=== PATIENT | female | born 1945 | race Caucasian/White ===

== ENCOUNTER 2023-01-20 07:39 | Day surgery (SDC) | payer MEDICARE, SELFPAY ==
[2023-01-20 07:56] VITALS: BP 131/84; PULSE 92; RESP 14; TEMP 36.2; O2SAT 97; BMI 25.9
[2023-01-20] MEDS: LACTATED RINGER'S SOLUTION 1,000 ML 50 ML IV (08:05)
--- NOTE | 2023-01-20 10:10 | PM.GSPRC ---
Date of procedure: 01/20/23 Indications for Procedure: history of colon polyps Pre-op diagnosis: history of colon polyps Post-op diagnosis: other (normal colon) Procedure: colonoscopy Findings: Normal Anesthesia: MAC Surgeon: Yo Dunham Procedure Summary: PROCEDURE: The patient was taken to the Endoscopy Suite, placed in the left lateral recumbent position, given IV sedation as above. A rectal digital exam was performed. The sphincter tone was found to be normal. No rectal masses were appreciated. The Olympus video colonoscope was advanced under direct visualization to the rectum, sigmoid colon, descending colon, transverse colon and ascending colon to the ileocecal valve. The underside of the valve was seen. appendiceal lumen was visualized. The scope was slowly withdrawn with air being desufflated as it was withdrawn. No gross tumors, polyps or diverticula were seen. The patient tolerated the procedure well and went to the Recovery Area in satisfactory condition. I recommend the patient use a bulk laxative on a regular basis and follow up as needed. she will not need repeat scope due to ageless problems. Estimated blood loss (mL): 0 Specimens: none Complications: No Pathology: none sent Condition: stable Disposition: PACU
[2023-01-20 10:12] VITALS: BP 124/66; PULSE 61; RESP 16; O2SAT 100
[2023-01-20 10:37] VITALS: BP 120/84; PULSE 60; RESP 16; O2SAT 97
== END 2023-01-20 10:55 | disposition home or self-care (01) ==
PROVIDERS: PCP Family Medicine; Visit Provider Surgery
PROC: (CPT 45378; principal; 2023-01-20 09:50)
DX: Z86.010 Personal history of colon polyps (principal); Z80.0 Family history of malignant neoplasm of digestive organs; F41.9 Anxiety disorder, unspecified; Z79.899 Other long term (current) drug therapy; Z90.710 Acquired absence of both cervix and uterus
CPT/HCPCS: 45378; J2704

== ENCOUNTER 2023-01-21 18:50 | Outpatient (OUT) | payer MEDICARE, SELFPAY ==
[2023-01-14 16:52] LABS: SARS-CoV-2 Ag NEGATIVE (NEGATIVE)
[2023-01-15 16:11] LABS: SARS-CoV-2 NAA NOT DETECTED (NOT DETECTE)
== END 2023-01-21 18:51 | disposition home or self-care (01) ==
LOC: PST 18:50
PROVIDERS: Nurse Practitioner; PCP Family Medicine; Visit Provider Surgery
DX: Z01.812 Encounter for preprocedural laboratory examination (principal); Z86.010 Personal history of colon polyps; Z20.822 Contact with and (suspected) exposure to COVID-19
CPT/HCPCS: 87635; 87811

== ENCOUNTER 2023-03-10 13:42 | Outpatient (OUT) | payer MEDICARE, SELFPAY ==
--- NOTE | 2023-03-10 14:50 | CA_ITS ---
Patient: KOLTON NAPIER Exam Date: 03/10/2023 : 1945 Gender:F Ordering : DR CARRIE DE LA TORRE . Admission #: [id number] Family : DR DANI DOMINGUEZ M.D. Order #: [id number] CLICK HERE TO VIEW EXAM ECHOCARDIOGRAM REPORT PROCEDURE: CA ECHO DOPPLER COMPLETE INDICATIONS: Aortic stenosis, hypertension COMPARISON: None. DESCRIPTION: COMPLETE ECHOCARDIOGRAM Real-time transthoracic echocardiography with 2D, M-mode, spectral and color flow Doppler performed. QUALITY: Technical quality was good. LEFT VENTRICLE: Normal chamber size. Proximal septal hypertrophy (sigmoid septum). Normal systolic function. LV EF: Normal left ventricular ejection fraction, (>55%). DIASTOLIC: Normal diastolic function. ATRIAL SEPTUM: Hypermobile interatrial septum. Color Doppler flow suggests possible PFO. LEFT ATRIUM: Moderate dilatation. RIGHT ATRIUM: Mild dilatation. RIGHT VENTRICLE: Normal chamber size. Normal right ventricular systolic function. TRICUSPID VALVE: Normal mobility and thickness. No stenosis with trivial regurgitation. No evidence of pulmonary hypertension. RVSP 30 mmHg MITRAL VALVE: Normal mobility and thickness. No evidence of mitral valve stenosis. There is no mitral annular calcification. Trivial mitral regurgitation. The anterior leaflet is calcified at the tip. AORTIC VALVE: Normal trileaflet appearance. Mildly calcified aortic valve. Mildly diminished mobility. Doppler velocity suggest mild to moderate aortic valve stenosis. DVI 0.4, ADIN 1.4 cm2. Mean gradient 12 mmHg. No aortic regurgitation. AORTIC ROOT: Normal diameter and appearance. The ascending aorta is normal in size (3.3 cm). The aortic arch is mildly dilated (3.4 cm) PULMONIC VALVE: Normal thickness and mobility. No stenosis. No regurgitation. PERICARDIUM: No evidence of pericardial effusion. IVC: Collapses with inspirations. IVC is normal in size. PLEURA: CONCLUSION: 1. Normal left ventricular systolic function. LVEF is 55-60%. 2. Normal right ventricular size and systolic function. 3. Normal diastolic function. 4. Mild to moderate biatrial dilatation. 5. Mild to moderate aortic valve stenosis. 6. Normal right sided pressures. Adult Echocardiography Procedure Report Left Ventricle LVEDD (3.7 - 5.6 cm): 4.21 cm LVESD (2.2 - 4.0 cm): 2.69 cm LVIVS thickness (0.6 - 1.2 cm): 1.34 cm LVPW thickness (0.5 - 1.0 cm): 0.83 cm e': 0.11 m/s E - e': 5.63 LVOT Max Gradient: 3.19 mm[Hg], 3.19 mm[Hg] LVOT Area (cm2): 0.89 m/s Peak Velocity (LVOT): 0.89 m/s, 0.89 m/s Mean Velocity (LVOT): 0.63 m/s LVOT Diameter 2.02 cm Left Atrium LA Volume Index (2D A2C): 33.42 ml/m2 Left Atrium Systolic Dimension: 4.40 cm Mitral Valve MV E to A Ratio: 0.72 Mitral Valve A-Wave Peak Velocity: 0.89 m/s Mitral Valve E-Wave Peak Velocity: 0.64 m/s Right Ventricle Aorta AO Root Diam: 3.07 cm Ascending Ao Diam: 3.28 cm Aortic Valve AoV Area (Peak Haile): 1.38 cm2, 1.40 cm2, 1.49 cm2 AoV Area (VTI): 1.37 cm2, 1.42 cm2, 1.46 cm2 Peak Velocity(Antegrade Flow): 2.04 m/s, 1.92 m/s, 2.23 m/s Peak Gradient(Antegrade Flow): 16.59 mm[Hg], 14.68 mm[Hg], 19.94 mm[Hg] Mean Velocity(Antegrade Flow): 1.54 m/s, 1.36 m/s, 1.60 m/s Mean Gradient(Antegrade Flow): 10.42 mm[Hg], 8.52 mm[Hg], 11.83 mm[Hg] Velocity Time Integral: 46.49 cm, 44.59 cm, 52.51 cm Tricuspid Valve Peak Velocity (Regurgitant Flow): 2.61 m/s Pulmonic Valve Peak Velocity: 1.04 m/s Peak Gradient: 4.51 mm[Hg], 4.11 mm[Hg] Right Atrium Right Atrium Systolic Pressure: 42.59 ml, 42.59 ml Dictated by: Bulmaro Mojica M.D. on 03/11/2023 at 09:54 Approved by: Bulmaro Mojica M.D. on 03/11/2023 at 10:07
== END 2023-03-10 13:43 | disposition home or self-care (01) ==
LOC: CARD 13:42
PROVIDERS: PCP Family Medicine; Visit Provider Family Medicine
DX: I35.0 Nonrheumatic aortic (valve) stenosis (principal)
CPT/HCPCS: 93306

== ENCOUNTER 2023-08-23 15:05 | Outpatient (OUT) | payer MEDICARE, SELFPAY ==
[2023-08-23 15:26] LABS: Basophils Absolute Auto 0.1 10^3/uL (0.0-0.1); Basophils Percent Auto 0.7 % (0.2-2.0); Eosinophils Absolute Auto 0.2 10^3/uL (0.0-0.7); Eosinophils Percent Auto 2.5 % (0.9-7.0); Hematocrit 40.1 % (36.0-48.0); Hemoglobin 13.3 g/dL (12.0-16.0); Immature Granulocytes Abs Auto 0.02 10^3/uL (0.00-0.03); Immature Granulocytes Pct Auto 0.2 % (0.0-0.5); Lymphocytes Absolute Auto 2.9 10^3/uL (1.2-3.8); Lymphocytes Percent Auto 36.1 % (20.5-60.0); Mean Corpuscular HGB Conc 33.2 g/dL (29.9-35.2); Mean Corpuscular Volume 96.4 fL (81.0-99.0); Mean Platelet Volume 9.7 fL (9.5-13.5); Monocytes Absolute Auto 0.6 10^3/uL (0.3-0.8); Monocytes Percent Auto 7.6 % (1.7-12.0); Neutrophils Absolute Auto 4.2 10^3/uL (1.4-6.5); Neutrophils Percent Auto 52.9 % (43.0-75.0); Platelet Count 238 10^3/uL (150-450); Red Blood Count 4.16 10^6/uL (4.20-5.40); Red Cell Distribution Width 11.8 % (11.0-15.0)
[2023-08-23 15:39] LABS: Alanine Aminotransferase 16 U/L (14-59); Albumin Globulin Ratio 1.1; Alkaline Phosphatase 107 U/L (46-116); Anion Gap 11.9; Aspartate Amino Transferase 19 U/L (15-37); BUN Creatinine Ratio 20.7; Bilirubin Direct 0.1 mg/dL (0.0-0.2); Bilirubin Total 0.5 mg/dL (0.2-1.0); Calcium 9.7 mg/dL (8.5-10.1); Chloride 105 mmol/L (98-107); Chol HDL Ratio 2.7; Cholesterol 161 mg/dL (<=200); Estimated GFR (African America >60 (>=60); Estimated GFR (Non-African Ame >60 (>=60); Globulin 3.8 g/dL; Glucose 90 mg/dL (74-106); HDL Cholesterol 60 mg/dL (40-60); LDL Cholesterol Calculated 78.2 mg/dL; Potassium 3.9 mmol/L (3.5-5.1); Sodium 142 mmol/L (136-145); Total Protein 7.8 g/dL (6.4-8.2); Triglycerides 114 mg/dL (<=150); VLDL CHOLESTEROL 22.8 mg/dL
== END 2023-08-23 15:06 | disposition home or self-care (01) ==
LOC: LAB 15:07
PROVIDERS: PCP Family Medicine; Visit Provider Family Medicine
DX: Z79.899 Other long term (current) drug therapy (principal); I10 Essential (primary) hypertension; E78.5 Hyperlipidemia, unspecified
CPT/HCPCS: 36415; 80048; 80061; 80076; 85025

== ENCOUNTER 2023-09-27 12:42 | Outpatient (OUT) | payer MEDICARE, SELFPAY ==
--- NOTE | 2023-09-27 12:45 | MM_ITS ---
Patient Name: KOLTON NAPIER MR#: [id number] : 1945 Exam Date: 09/27/2023 Ordering Doctor: DR Shaheed Crow . RADIOLOGY REPORT PROCEDURE: MM TOMOSYNTHESIS SCREENING BI COMPARISON: MG MAMM SCREEN 3D SHARLENE CAD, 09/23/2021. MG MAMM SCREEN 3D SHARLENE CAD, 09/24/2022. INDICATIONS: screening Calculator Name NCI Breast Cancer Risk Assessment Tool 5 Year Breast Cancer Risk 8.10% Lifetime Breast Cancer Risk 14.10% Personal Breast Cancer No Personal Ovarian Cancer No Treatments None Family Cancers Mother with breast cancer at age 80; Aunt-maternal with breast cancer at age 80; Sister with breast cancer at age 65; Mother with stomach cancer at age 80. LOCATION: [facility] BREAST COMPOSITION: Scattered areas fibroglandular density. FINDINGS: DIAGNOSTIC CATEGORY 1--NEGATIVE. NO CHANGE FROM COMPARISON ASSESSMENT. Scattered benign-appearing calcifications are present. Scattered benign-appearing lymph nodes are present. RIGHT BREAST: No significant suspicious finding. LEFT BREAST: No significant suspicious finding. RECOMMENDATIONS: ROUTINE MAMMOGRAM AND CLINICAL EVALUATION IN 12 MONTHS. PLEASE NOTE: A NORMAL MAMMOGRAM DOES NOT EXCLUDE THE POSSIBILITY OF BREAST CANCER. A CLINICALLY SUSPICIOUS PALPABLE LUMP SHOULD BE BIOPSIED. Dictated by: Kt Stacy MD on 09/27/2023 at 15:28 Approved by: Kt Stacy MD on 09/27/2023 at 15:29
--- OUTSIDE RECORDS SUMMARY | 2023-09-27 12:48 | XMS_ITS | CCD ---
Author Organization [facility] Care Team Providers Care Chemical Checker Name Role Phone ADORE, DR MARIALUISA Anguiano Consulting Unavailable NADERER, DR SHAHEED Thomas Primary Care Unavailable WEST, DR MARIALUISA Anguiano Attending Unavailable WEST, DR MARIALUISA Anguiano Admitting Unavailable WEST, DR MARIALUISA Anguiano Consulting Unavailable NADERER, DR SHAHEED Thomas Primary Care Unavailable WEST, DR MARIALUISA Anguiano Attending Unavailable WEST, DR MARIALUISA Anguiano Admitting Unavailable WEST, DR MARIALUISA Anguiano Consulting Unavailable NADERER, DR SHAHEED Thomas Primary Care Unavailable WEST, DR MARIALUISA Anguiano Attending Unavailable WEST, DR MARIALUISA Anguiano Admitting Unavailable ZIEBER, DR NOAH Avery Consulting Unavailable WEST, DR MARIALUISA Anguiano Consulting Unavailable NADERER, DR SHAHEED Thomas Primary Care Unavailable WEST, DR MARIALUISA Anguiano Attending Unavailable WEST, DR MARIALUISA Anguiano Admitting Unavailable ZIEBER, DR NOAH Avery Consulting Unavailable WEST, DR MARIALUISA Anguiano Consulting Unavailable NADERER, DR SHAHEED Thomas Primary Care Unavailable WEST, DR MARIALUISA Anguiano Attending Unavailable WEST, DR MARIALUISA Anguiano Admitting Unavailable ZIEBER, DR NOAH Avery Consulting Unavailable WEST, DR MARIALUISA Anguiano Consulting Unavailable NADERER, DR SHAHEED Thomas Primary Care Unavailable WEST, DR MARIALUISA Anguiano Attending Unavailable WEST, DR MARIALUISA Anguiano Admvic Unavailable WEST, DR MARIALUISA Anguiano Consulting Unavailable NADERER, DR SHAHEED Thomas Primary Care Unavailable WEST, DR MARIALUISA Anguiano Attending Unavailable WEST, DR MARIALUISA Anguiano Admitting Unavailable ZIEBER, DR NOAH Avery Consulting Unavailable WEST, DR MARIALUISA Anguiano Consulting Unavailable NADERER, DR SHAHEED Thomas Primary Care Unavailable WEST, DR MARIALUISA Anguiano Attending Unavailable WEST, DR MARIALUISA Anguiano Admitting Unavailable ZIEBER, DR NOAH Avery Consulting Unavailable NADERER, DR SHAHEED Thomas Primary Care Unavailable NADERER, DR SHAHEED Thomas Attending Unavailable NADERER, DR SHAHEED Thomas Admitting Unavailable NADERER, DR SHAHEED Thomas Consulting Unavailable NADERER, DR SHAHEED Thomas Consulting Unavailable NADERER, DR SHAHEED Thomas Primary Care Unavailable NADERER, DR SHAHEED Thomas Attending Unavailable NADERER, DR SHAHEED Thomas Admitting Unavailable [place], DR MARIALUISA Anguiano Consulting Unavailable WIL, DR SHAHEED Thomas Primary Care Unavailable [place], DR MARIALUISA Anguiano Attending Unavailable [place], DR MARIALUISA Agnuiano Admitting Unavailable [place], DR MARIALUISA Anguiano Consulting Unavailable WIL, DR SHAHEED Thomas Primary Care Unavailable WEST, DR MARIALUISA Anguiano Attending Unavailable WEST, DR MARIALUISA Anguiano Admitting Unavailable WEST, DR MARIALUISA Anguiano Consulting Unavailable WIL, DR SHAHEED Thomas Primary Care Unavailable WEST, DR MARIALUISA Anguiano Attending Unavailable WEST, DR MARIALUISA Anguiano Admitting Unavailable Shaheed De La Torre MD Primary Care Provider EVE ADAMS Attending Unavailable LEONIDAS PETERS Attending Unavailable WIL, SHAHEED Attending Unavailable WIL, SHAHEED Attending Unavailable WIL, SHAHEED Attending Unavailable Allergies Allergy Classification Reported Allergen(s) Allergy Type Date of Onset Reaction(s) Facility (1 source) Albuterol Drug Allergy [facility] Repository (1 source) Penicillin Drug Allergy [facility] (3 sources) Albuterol Drug Allergy 9 Palpitations [facility] (3 sources) Cephalosporins (Antibiotic) Drug Allergy 3 Diarrhea, GI intolerance [facility] (4 sources) Penicillins; Translations: [PENICILLINS] Drug Allergy 8 GI intolerance [facility] (3 sources) cefdinir; Translations: [CEFDINIR] Drug Allergy 1 Diarrhea, GI intolerance [facility] (1 source) Albuterol; Translations: [ALBUTEROL SULFATE] Drug Allergy 9 [facility] Repository Medications Current Medications Medication Drug Class(es) Dates Sig (Normalized) Sig (Original) ALPRAZolam 0.5 mg oral tablet (3 sources) Benzodiazepine Start: 4 End: 4 take 0.5 tablet by mouth three times daily as needed for anxiety ALPRAZolam (Xanax) 0.5 MG tablet Indications: LAUREL (generalized anxiety disorder) ([facility]) Take 0.5 tablets (0.25 mg) by mouth 3 (three) times a day as needed for anxiety 90 tablet 0 08/03/2023 10/02/2023 Active benzonatate 200 mg oral capsule (3 sources) Non-narcotic Antitussive Start: 4 End: 5 take 1 capsule by mouth three times daily as needed for cough benzonatate (Tessalon) 200 MG capsule Indications: Chronic cough Take 1 capsule (200 mg) by mouth 3 (three) times a day as needed for cough Do not crush or chew. 90 capsule 3 08/03/2023 08/02/2024 Active dilTIAZem hydrochloride 60 mg oral tablet (3 sources) Calcium Channel Nate take 1 tablet by mouth in the morning, then take 1 tablet by mouth in the evening, then take 1 tablet by mouth at bedtime dilTIAZem (Cardizem) 60 MG immediate release tablet Take 1 tablet by mouth in the morning and 1 tablet in the evening and 1 tablet before bedtime. 0 Active FLUoxetine 40 mg oral capsule (3 sources) Serotonin Reuptake Inhibitor Start: 3 take 1 capsule by mouth in the morning FLUoxetine (PROzac) 40 MG capsule Indications: MDD (major depressive disorder), recurrent episode, moderate (HCC) (CMS/HCC) Take 1 capsule (40 mg) by mouth in the morning. 30 capsule 3 06/10/2023 Active hydroCHLOROthiazide 25 mg / losartan potassium 100 mg oral tablet (3 sources) Thiazide Diuretic, Angiotensin 2 Receptor Nate Start: 4 End: 5 take 1 tablet by mouth in the morning losartan-hydroCH LOROthiazide (Hyzaar) 100-25 MG tablet Indications: Benign hypertension (CMS/HCC) Take 1 tablet by mouth in the morning. 90 tablet 3 07/09/2023 07/08/2024 Active ipratropium bromide 0.2 mg/ml inhalation solution (3 sources) Anticholinergic ipratropium (Atrovent) 0.02 % nebulizer solution Take 3 mL by nebulization every 6 (six) hours 0 Active loratadine 10 mg oral tablet (3 sources) take 1 tablet by mouth in the morning loratadine (Claritin) 10 MG tablet Take 1 tablet by mouth in the morning. 0 Active nystatin 100 unt/mg topical powder (3 sources) Polyene Antifungal nystatin (Mycostatin) 156658 UNIT/GM powder Apply 1 application topically in the morning and 1 application before bedtime. 0 Active omeprazole 40 mg delayed release oral capsule (3 sources) Proton Pump Inhibitor take 1 capsule by mouth before mealtime omeprazole (PriLOSEC) [address] capsule Take 40 mg by mouth in the morning. Take before meals. Do not crush or chew. . 0 Active potassium chloride 20 meq extended release oral tablet (5 sources) Start: take 1 tablet by mouth in the morning potassium chloride CR (K-Tab) 20 MEQ ER tablet Take 20 mEq by mouth in the morning and 20 mEq before bedtime. 0 07/07/2023 Active End: 08-19-2023 potassium chloride CR (Klor- Con M20) 20 MEQ ER tablet Take 20 mEq by mouth in the morning. Do not crush or chew. . 0 08/19/2023 Discontinued (Therapy completed) rosuvastatin calcium 10 mg oral tablet (3 sources) HMG-CoA Reductase Inhibitor Start: 07-09-2023 End: 07-08-2024 take 1 tablet by mouth in the morning rosuvastatin (Crestor) 10 MG tablet Indications: Dyslipidemia (CMS/HCC) Take 1 tablet (10 mg) by mouth in the morning. 90 tablet 3 07/09/2023 07/08/2024 Active Completed/Discontinued Medications Medication Drug Class(es) Dates Sig (Normalized) Sig (Original) 30 actuat fluticasone furoate 0.1 mg/actuat / umeclidinium 0.0625 mg/actuat / vilanterol 0.025 mg/actuat dry powder inhaler (3 sources) Anticholinergic, Corticosteroid, beta2-Adrenergic Agonist End: 08-19-2023 take 1 puff(s) by inhalation in the morning Fluticasone-Umeclid in-Vilant (Trelegy Ellipta) 100-62.5-25 MCG/ACT aerosol powder Inhale 1 puff in the morning. 0 08/19/2023 Discontinued (Therapy completed) levalbuterol 0.417 mg/ml inhalation solution (3 sources) beta2-Adrenergic Agonist End: 08-19-2023 levalbuterol (Xopenex) 1.25 MG/3ML nebulizer solution Take 1 ampule by nebulization in the morning and 1 ampule in the evening and 1 ampule before bedtime. 0 08/19/2023 Discontinued (Therapy completed) Problems Active Problems Problem Classification Problem Date Documented Da te Episodic/Chronic Anxiety disorders (5 sources) Generalized anxiety disorder; Translations: [Generalized anxiety disorder] Onset: 12-07-202 3 06-10-2023 Chronic Asthma (6 sources) Asthma-chronic obstructive pulmonary disease overlap syndrome; Translations: [Asthma-COPD overlap syndrome] Onset: 3 06-10-2023 Chronic Cardiac dysrhythmias (2 sources) Supraventricular tachycardia; Translations: [Supraventricular tachycardia] Onset: 2 Chronic Chronic obstructive pulmonary disease and bronchiectasis (2 sources) Chronic obstructive pulmonary disease, unspecified; Translations: [Chronic obstructive pulmonary disease, unspecified] Onset: 3 Chronic Disorders of lipid metabolism (6 sources) Hyperlipidemia, unspecified; Translations: [Dyslipidemia] Onset: 3 06-10-2023 Chronic Esophageal disorders (5 sources) Gastroesophageal reflux disease without esophagitis; Translations: [Gastro-esophageal reflux disease without esophagitis] Onset: 3 06-10-2023 Chronic Essential hypertension (11 sources) Essential (primary) hypertension; Translations: [Benign essential hypertension] Onset: 2 Chronic Fluid and electrolyte disorders (3 sources) Hypokalemia; Translations: [Hypokalemia] Onset: 3 06-10-2023 Episodic Heart valve disorders (7 sources) Mitral and aortic stenosis; Translations: [Rheumatic disorders of both mitral and aortic valves] Onset: 2 06-10-2023 Chronic Mood disorders (5 sources) Recurrent major depressive episodes, moderate ; Translations: [Major depressive disorder, recurrent, moderate] Onset: 3 06-10-2023 Chronic Osteoarthritis (3 sources) Arthritis of left foot; Translations: [Primary osteoarthritis, left ankle and foot] Onset: 3 06-10-2023 Chronic Other aftercare (1 source) Other long-term (current) drug therapy; Translations: [OTH CORRECTION CURRENT DRUG THERAPY] Onset: 3 Episodic Other aftercare (4 sources) Patient encounter status; Translations: [Other long-term (current) drug therapy] Onset: 4 08-19-2023 Episodic Other connective tissue disease (3 sources) Pain in left foot; Translations: [Pain in left foot] Onset: 3 06-10-2023 Episodic Other gastrointestinal disorders (3 sources) Therapeutic opioid induced constipation; Translations: [Drug induced constipation] Onset: 3 06-10-2023 Episodic Other injuries and conditions due to external causes (3 sources) At low risk for fall; Translations: [History of falling] Onset: 3 06-10-2023 Episodic Other non-traumatic joint disorders (3 sources) Subtalar joint unstable; Translations: [Other instability, left foot] Onset: 3 06-10-2023 Episodic Other nutritional; endocrine; and metabolic disorders (3 sources) Overweight; Translations: [Overweight] Onset: 3 06-10-2023 Episodic Other screening for suspected conditions (not mental disorders or infectious disease) (7 sources) Encounter for screening mammogram for malignant neoplasm of breast; Translations: [Patient encounter status] Onset: 3 Episodic Other skin disorders (3 sources) Vesicular eczema; Translations: [Dyshidrosis [pompholyx]] Onset: 3 06-10-2023 Episodic Other upper respiratory disease (5 sources) Allergic rhinitis due to pollen; Translations: [Allergic rhinitis due to pollen] Onset: 3 06-10-2023 Chronic Phlebitis; thrombophlebitis and thromboembolism (8 sources) Phlebitis and thrombophlebitis of superficial vessels of right lower extremity; Translations: [Thrombophlebitis of superficial veins of lower extremity] Onset: 2 Episodic Residual codes; unclassified (1 source) Family history of malignant neoplasm of breast; Translations: [FAMILY HX MALIG NEOPLASM OF BREAST] Onset: 3 Episodic Residual codes; unclassified (1 source) Family history of malignant neoplasm of digestive organs; Translations: [FAM HX MALIG NEOPLASM DIGESTIV ORGN] Onset: 3 Episodic Residual codes; unclassified (3 sources) Family history of cancer of colon; Translations: [Family history of malignant neoplasm of digestive organs] Onset: 3 06-10-2023 Episodic Spondylosis; intervertebral disc disorders; other back problems (5 sources) Lumbosacral stenosis; Translations: [Spinal stenosis, lumbosacral region] Onset: 3 06-10-2023 Episodic Varicose veins of lower extremity (8 sources) Varicose veins of bilateral lower extremities with pain; Translations: [Varicose veins of lower extremity] Onset: Episodic Past or Other Problems Problem Classification Problem Date Documented Da te Episodic/Chronic Cardiac dysrhythmias (5 sources) Sinus tachycardia; Translations: [Tachycardia, unspecified] Onset: 06-18-2022 06-10-2023 Episodic Other aftercare (4 sources) Encounter for surgical aftercare following surgery on the circulatory system; Translations: [ENC SURG AFTRCARE FLW SURG CIRC SYS] Onset: 02-10-2022 Episodic Other lower respiratory disease (2 sources) Other forms of dyspnea; Translations: [Other forms of dyspnea] Onset: 06-18-2022 Episodic Results Test Name Value Interpretation Reference Range Facility Office Visiton 08-23-2023 Follow-up visit [id number] Pankaj Napier 1945 F Date Provider Department Center 08/23/2023 [facility] CARD [facility] Family History Problem Relation Age of Onset Coronary artery disease Mother Coronary artery disease Brother Family Status - Relation Status Age at Mother Brother Level of Service:56924 [place] OFFICE/OUTPATIENT ESTABLISHED LOW MDM 20 MIN Normal [facility] MG MAMM SCREEN 3D SHARLENE CADon 09-24-2022 MG MAMM SCREEN 3D SHARLENE CAD Patient: KOLTON NAPIER Exam Date: 09/24/2022 : 1945 Gender:F Ordering : DR SHAHEED DE LA TORRE . Admission #: [id number] Family : Order #: [id number] CLICK HERE TO VIEW EXAM RADIOLOGY REPORT PROCEDURE: MAMMOGRAM SCREENING 3D BILATERAL CAD COMPARISON: MG MAMM SCREEN 3D SHARLENE CAD, 09/18/2020. MG MAMM SCREEN SHARLENE W CAD, 09/13/2019. MG MAMM SCREEN SHARLENE W CAD, 09/19/2014. MG MAMM SCREEN 3D SHARLEEN CAD, 09/23/2021. INDICATIONS: Screening mammography Calculator Name NCI Breast Cancer Risk Assessment Tool 5 Year Breast Cancer Risk 8.20% Lifetime Breast Cancer Risk 15.10% Personal Breast Cancer No Personal Ovarian Cancer No Treatments None Family Cancers Mother with breast cancer at age 80; Aunt-maternal with breast cancer at age 80; Sister with breast cancer at age 65; Mother with stomach cancer at age 80. LOCATION: [facility] BREAST COMPOSITION: Scattered areas fibroglandular density. FINDINGS: DIAGNOSTIC CATEGORY 1--NEGATIVE. RIGHT BREAST: No significant suspicious finding. No significant change has occurred. LEFT BREAST: No significant suspicious finding. No significant change has occurred. RECOMMENDATIONS: ROUTINE MAMMOGRAM AND CLINICAL EVALUATION IN 12 MONTHS. PLEASE NOTE: A NORMAL MAMMOGRAM DOES NOT EXCLUDE THE POSSIBILITY OF BREAST CANCER. A CLINICALLY SUSPICIOUS PALPABLE LUMP SHOULD BE BIOPSIED. Dictated by: Noah Vaughan M.D. on 09/25/2022 at 07:06 Approved by: Noah Vaughan M.D. on 09/25/2022 at 07:08 Normal [facility] Office Visiton 08-31-2022 Follow-up visit [id number] Pankaj Napier 1945 F Date Provider Department Center 08/31/2022 [id number] PETERS [facility] Family History Problem Relation Age of Onset Coronary artery disease Mother Coronary artery disease Brother Family Status - Relation Status Age at Mother Brother Level of Service:15139 [place] OFFICE/OUTPATIENT ESTABLISHED MOD MDM 30-39 MIN Reason for Visit and Comments: Follow-up [599770] - 1 yr follow up Normal [facility] CBC AUTO DIFFon 07-17-2022 BASO # 0.1 103/ul Normal 0.0-0.1 [facility] Comment on above: Performed By: #### C BC ####[facility] [address] [place] [id number]. Fidencio Walker Basophils/100 WBC (Bld) 0.8 % Normal 0.2-2.0 [facility] Comment on above: Performed By: #### C BC ####[facility] [address] [place], [place] [address]Sw. Fidencio Walker EO # 0.4 103/ul Normal 0.0-0.7 [facility] Comment on above: Performed By: #### C BC ####[facility] [address] [place], [place] [address]Gh. Fidencio Walker Eosinophils/100 WBC (Bld) 4.7 % Normal 0.9-7.0 [facility] Comment on above: Performed By: #### C BC ####[facility] [address] [place] [address]Dr. Fidencio Walker Erythrocyte distribution width (RBC) [Ratio] 13.0 % Normal 11.0-15.0 [facility] Comment on above: Performed By: #### C BC ####[facility] [address] [place], [place] [address]Dr. Fidencio Walker Hematocrit (Bld) [Volume fraction] 43.0 % Normal 36.0-48.0 [facility] Comment on above: Performed By: #### C BC ####[facility] [address] [place], [place] [address]Dr. Fidencio Walker Hemoglobin (Bld) [Mass/Vol] 13.1 g/dL Normal 12.0-16.0 [facility] Comment on above: Performed By: #### C BC ####[facility] [address] [place], [place] [address]Dr. Fidencio Walker IG # 0.02 10e3/ul Normal 0.00-0.03 [facility] Comment on above: Performed By: #### C BC ####[facility] [address] [place], [place] [address]Dr. Fidencio Walker IG % 0.3 % Normal 0.0-0.5 [facility] Comment on above: Performed By: #### C BC ####[facility] [address] [place], [place] [address]Dr. Fidencio Walker LYMPH # 2.2 103/ul Normal 1.2-3.8 [facility] Comment on above: Performed By: #### C BC ####[facility] [address] [place], [place] [address]Dr. Fidencio Walker Lymphocytes/100 WBC (Bld) 28.7 % Normal 20.5-60.0 [facility] Comment on above: Performed By: #### C BC ####[facility] [address]cx[address] [place], [place] [address]Dr. Fidencio Walker MANUAL DIFF REQ NO Normal [facility] Comment on above: Performed By: #### C BC ####[facility] [address] [place] [id number]. Fidencio Walker MCH (RBC) [Entitic mass] 30.9 pg Normal 26.7-34.0 [facility] Comment on above: Performed By: #### C BC ####[facility] [address] [place] [address]Dr. Fidencio Walker MCHC (RBC) [Mass/Vol] 30.5 g/dL Normal 29.9-35.2 [facility] Comment on above: Performed By: #### C BC ####[facility] [address] [place] [address]Dr. Fidencio Aaorn MCV (RBC) [Entitic vol] 101.4 fL Critically high 81.0-99.0 [facility] Comment on above: Performed By: #### C BC ####[facility] [address] [place], [place] [address]Dr. Fidencio Walker MONO # 0.5 103/ul Normal 0.3-0.8 [facility] Comment on above: Performed By: #### C BC ####[facility] [address] [place], [place] [address]Dr. Galileanickolas Walker Monocytes/100 WBC (Bld) 7.1 % Normal 1.7-12.0 [facility] Comment on above: Performed By: #### C BC ####[facility] [address] [place], [place] [address]Dr. Fidencio Aaron NEUT # 4.4 103/ul Normal 1.4-6.5 [facility] Comment on above: Performed By: #### C BC ####[facility] [address] [place], [place] [address]Dr. Galileanickolas Walker Neutrophils/100 WBC (Bld) 58.4 % Normal 43.0-75.0 [facility] Comment on above: Performed By: #### C BC ####[facility] [address] [place], [place] [address]Dr. Fidencio Walker Platelet mean volume (Bld) [Entitic vol] 10.8 fL Normal 9.5-13.5 [facility] Comment on above: Performed By: #### C BC ####[facility] [address] [place] [id number]. Fidencio Walker PLT 200 103/ul Normal 150-450 [facility] Comment on above: Performed By: #### C BC ####[facility] [address] [place], [place] [address]Il. Fidencio Walker RBC 4.24 106/ul Normal 4.20-5.40 [facility] Comment on above: Performed By: #### C BC ####[facility] [address] [place] [id number]. Fidencio Walker WBC 7.5 103/ul Normal 4.0-11.0 [facility] Comment on above: Performed By: #### C BC ####[facility] [address] [place] [id number]. Fidencio Walker LIPID PROFILEon 07-17-2022 CHOL-HDL RATIO NORM SEE BELOW Normal [facility] Comment on above: Result Comment: 3.3 - 4.4 LOW RISK 4.4 - 7.1 AVERAGE RISK 7.1 - 11.0 MODERATE RISK >11.0 HIGH RISK Performed By: #### L IPID, LIVER, BMP ####[facility] [address] [place] [id number]. Fidencio Walker Cholesterol [Mass/Vol] 134 mg/dL Normal <=200 [facility] Comment on above: Performed By: #### L IPID, LIVER, BMP ####[facility] [address] [place] [id number]. Fidencio Walker Cholesterol in HDL [Mass/Vol] 57 mg/dL Normal 40-60 [facility] Comment on above: Performed By: #### L IPID, LIVER, BMP ####[facility] [address] [place] [id number]. Fidencio Walker Cholesterol in LDL [Mass/Vol] 59.6 mg/dL Normal [facility] Comment on above: Performed By: #### L IPID, LIVER, BMP ####[facility] [address] [place] [id number]. Fidencio Walker Cholesterol.total/Ch olesterol in HDL [Mass ratio] 2.4 {ratio} Normal [facility] Comment on above: Performed By: #### L IPID, LIVER, BMP ####[facility] [address] [place] [id number]. Galileanickolas Aaron HDL NORMAL > or = 60 mg/dl - LO W CARDIOVASCULAR RISK <40 mg/dl - HIGH CARDIOVASCULAR RISK Normal [facility] Comment on above: Performed By: #### L IPID, LIVER, BMP ####[facility] [address] [place] [address]Dr. Fidencio Walker LDL CALC NORMAL SEE BELOW Normal [facility] Comment on above: Result Comment: <100 mg/dl OPTIMAL 100 - 129 mg/dl NEAR OR ABOVE OPTIMAL 130 - 159 mg/dl BORDERLINE HIGH 160 - 189 mg/dl HIGH >190 mg/dl VERY HIGH Performed By: #### L IPID, LIVER, BMP ####[facility] [address] [place] [address]Dr. Fidencio Walker Triglyceride [Mass/Vol] 87 mg/dL Normal <=150 [facility] Comment on above: Performed By: #### L IPID, LIVER, BMP ####[facility] [address] [place], [place] [address]Dr. Fidencio Walker VLDL CALC 17.4 mg/dL Normal [facility] Comment on above: Performed By: #### L IPID, LIVER, BMP ####[facility] [address] [place] [id number]. Galileanickolas Aaron LIVER PROFILEon 07-17-2022 Albumin [Mass/Vol] 3.7 g/dL Normal 3.4-5.0 [facility] Comment on above: Performed By: #### L IPID, LIVER, BMP ####[facility] [address] [place] [address]Dr. Fidencio Walker Albumin/Globulin [Mass ratio] 1.0 {ratio} Normal [facility] Comment on above: Performed By: #### L IPID, LIVER, BMP ####[facility] [address] [place] [id number]. Fidencio Walker ALP [Catalytic activity/Vol] 58 U/L Normal 46-116 [facility] Comment on above: Performed By: #### L IPID, LIVER, BMP ####[facility] [address] [place] [address]Dr. Fidencio Walker ALT [Catalytic activity/Vol] 13 U/L Critically low 14-59 [facility] Comment on above: Performed By: #### L IPID, LIVER, BMP ####[facility] [address] [place] [address]Dr. Fidencio Walker AST [Catalytic activity/Vol] 18 U/L Normal 15-37 [facility] Comment on above: Performed By: #### L IPID, LIVER, BMP ####[facility] [address] [place] [address]Dr. Fidencio Walker BILI, CONJUGATED 0.1 mg/dL Normal 0.0-0.2 [facility] Comment on above: Performed By: #### L IPID, LIVER, BMP ####[facility] [address] [place] [address]Dr. Fidencio Walker Bilirubin [Mass/Vol] 0.3 mg/dL Normal 0.2-1.0 [facility] Comment on above: Performed By: #### L IPID, LIVER, BMP ####[facility] [address] [place] [address]Dr. Fidencio Walker Globulin (S) [Mass/Vol] 3.6 g/dL Normal [facility] Comment on above: Performed By: #### L IPID, LIVER, BMP ####[facility] [id number] [place] [address]Dr. Fidencio Walker Protein [Mass/Vol] 7.3 g/dL Normal 6.4-8.2 [facility] Comment on above: Performed By: #### L IPID, LIVER, BMP ####[facility] [address] [place] [address]Dr. Fidencio Walker PROF CHEM 8 (BAS METB)on Anion gap [Moles/Vol] 11.3 mmol/L Normal [facility] Comment on above: Performed By: #### L IPID, LIVER, BMP ####[facility] [address] [place] [address]Dr. Fidencio Walker Calcium [Mass/Vol] 9.2 mg/dL Normal 8.5-10.[address] [facility] Comment on above: Performed By: #### L IPID, LIVER, BMP ####[facility] [address] [place] [address]Dr. Fidencio Walker Chloride [Moles/Vol] 102 mmol/L Normal 98-107 [facility] Comment on above: Performed By: #### L IPID, LIVER, BMP ####[facility] [address] [place] [address]Dr. Fidencio Walker CO2 [Moles/Vol] 29.5 mmol/L Normal 21.0-32.0 [facility] Comment on above: Performed By: #### L IPID, LIVER, BMP ####[facility] [address] [place], [place] [address]Dr. Fidencio Walker Creatinine [Mass/Vol] 0.92 mg/dL Normal 0.55-1.02 [facility] Comment on above: Performed By: #### L IPID, LIVER, BMP ####[facility] [id number] [place] [address]Dr. Fidencio Walker EGFR-AF MOZAMBICAN >60 Normal >=60 [facility] Comment on above: Result Comment: Prev iously reported as: (blank) On 07/17/2022 13:28 By AJR Performed By: #### L IPID, LIVER, BMP ####[facility] [address] [place] [address]Dr. Fidencio Walker EGFR-NON AF MOZAMBICAN 59 mL/min/1.73m2 Critically low >=60 [facility] Comment on above: Result Comment: Prev iously reported as: (blank) On 07/17/2022 13:28 By AJR Performed By: #### L IPID, LIVER, BMP ####[facility] [address] [place] [address]Dr. Fidencio Walker Glucose [Mass/Vol] 98 mg/dL Normal 74-106 [facility] Comment on above: Performed By: #### L IPID, LIVER, BMP ####[facility] [address] [place] [address]Dr. Fidencio Walker Potassium [Moles/Vol] 3.8 mmol/L Normal 3.5-5.1 [facility] Comment on above: Performed By: #### L IPID, LIVER, BMP ####[facility] [address] [place] [address]Dr. Fidencio Walker Sodium [Moles/Vol] 139 mmol/L Normal 136-145 [facility] Comment on above: Performed By: #### L IPID, LIVER, BMP ####[facility] [address] [place] [address]Dr. Fidencio Walker Urea nitrogen [Mass/Vol] 19.0 mg/dL Critically high 7.0-18.0 [facility] Comment on above: Performed By: #### L IPID, LIVER, BMP ####[facility] [address] [place] [address]Dr. Fidencio Walker Urea nitrogen/Creatinine [Mass ratio] 20.7 mg/mg Normal [facility] Comment on above: Performed By: #### L IPID, LIVER, BMP ####[facility] [address] [place] [address]Dr. Fidencio Walker VC INJ SCL BERTA FUEL CELL BINDER VEINSon 1 VC INJ SCL BERTA FUEL CELL BINDER VEINS Patient: KOLTON NAPIER Exam Date: 04/16/2022 : 1945 Gender:F Ordering : DR MARIALUISA AVITIA M.D. Admission #: [id number] Family : Order #: [id number] CLICK HERE TO VIEW EXAM RADIOLOGY REPORT PROCEDURE: VEIN CENTER INJECTION SCLEROSING SOLUTION MULTIPLE VEINS SAME COMPARISON: VC INJ SCL BERTA FUEL CELL BINDER VEINS, 04/02/2022. VC INJ SCL BERTA FUEL CELL BINDER VEINS, 03/24/2022. INDICATIONS: Pain co-occurrent and due to varicose veins of bilateral legs I83.813 PROCEDURE NOTE: The risks and benefits of the procedure were explained at length to the patient and informed written consent was obtained. Jamie Babin was present and assisted. The procedure was performed under sterile technique. The patient's leg was wrapped with Coban and postprocedural verbal and written instructions provided. SCLEROSANT: 4 cc, 0.5% polidocanol VEIN(S) INJECTED: 24 veins in the left leg VISUALIZATION: Ultrasound was not used to visualize the sclerosant ANESTHESIA Supercooled air COMPLICATIONS: None CONCLUSION: 1. Technically successful sclerotherapy as described Dictated by: Marialuisa Avitia MD on 04/16/2022 at 14:33 Approved by: Marialuisa Avitia MD on 04/16/2022 at 14:34 Normal [facility] VC INJ SCL BERTA FUEL CELL BINDER VEINSon 0 04-02-2022 VC INJ SCL BERTA FUEL CELL BINDER VEINS Patient: KOLTON NAPIER Exam Date: 04/02/2022 : 1945 Gender:F Ordering : DR MARIALUISA AVITIA M.D. Admission #: [id number] Family : Order #: [id number] CLICK HERE TO VIEW EXAM RADIOLOGY REPORT PROCEDURE: VEIN CENTER INJECTION SCLEROSING SOLUTION MULTIPLE VEINS SAME COMPARISON: VC INJ SCL BERTA FUEL CELL BINDER VEINS, 03/24/2022. INDICATIONS: Pain co-occurrent and due to varicose veins of bilateral legs I83.813 PROCEDURE NOTE: The risks and benefits of the procedure were explained at length to the patient and informed written consent was obtained. Jamie Babin R.N. was present and assisted. The procedure was performed under sterile technique. The patient's leg was wrapped with Coban and postprocedural verbal and written instructions provided. SCLEROSANT: 2 cc, 0.5% polidocanol VEIN(S) INJECTED: 18 veins in the right leg VISUALIZATION: Ultrasound was not used to visualize the sclerosant ANESTHESIA Supercooled air COMPLICATIONS: None CONCLUSION: 1. Technically successful sclerotherapy as described Dictated by: Noah Vaughan M.D. on 04/02/2022 at 15:47 Approved by: Noah Vaughan M.D. on 04/02/2022 at 15:47 Normal [facility] VC INJ SCL BERTA FUEL CELL BINDER VEINSon 0 03-24-2022 VC INJ SCL BERTA FUEL CELL BINDER VEINS Patient: KOLTON NAPIER. Exam Date: 03/24/2022 : 1945 Gender:F Ordering : DR MARIALUISA AVITIA M.D. Admission #: [id number] Family : Order #: [id number] CLICK HERE TO VIEW EXAM RADIOLOGY REPORT PROCEDURE: VEIN CENTER INJECTION SCLEROSING SOLUTION MULTIPLE VEINS SAME COMPARISON: VC INJ SCL BERTA FUEL CELL BINDER VEINS, 03/19/2022. VC INJ SCL BERTA FUEL CELL BINDER VEINS, 03/10/2022. INDICATIONS: Pain co-occurrent and due to varicose veins of bilateral legs I83.813 PROCEDURE NOTE: The risks and benefits of the procedure were explained at length to the patient and informed written consent was obtained. Jamie Faulkner was present and assisted. The procedure was performed under sterile technique. The patient's leg was wrapped with Coban and postprocedural verbal and written instructions provided. SCLEROSANT: 4 cc, 0.5% polidocanol VEIN(S) INJECTED: 24 veins in the right leg VISUALIZATION: Ultrasound was not used to visualize the sclerosant ANESTHESIA Supercooled air COMPLICATIONS: None CONCLUSION: 1. Technically successful sclerotherapy as described Dictated by: Marialuisa Avitia MD on 03/24/2022 at 13:40 Approved by: Marialuisa Avitia MD on 03/24/2022 at 13:41 [facility] VC INJ SCL BERTA FUEL CELL BINDER VEINSon 0 03-19-2022 VC INJ SCL BERTA FUEL CELL BINDER VEINS Patient: KOLTON NAPIER. Exam Date: 03/19/2022 : 1945 Gender:F Ordering : DR MARIALUISA AVITIA M.D. Admission #: [id number] Family : Order #: [id number] CLICK HERE TO VIEW EXAM RADIOLOGY REPORT PROCEDURE: VEIN CENTER INJECTION SCLEROSING SOLUTION MULTIPLE VEINS SAME COMPARISON: VC INJ SCL BERTA FUEL CELL BINDER VEINS, 03/10/2022. VC INJ SCL BERTA FUEL CELL BINDER VEINS, 03/03/2022. INDICATIONS: Pain co-occurrent and due to varicose veins of bilateral legs I83.813 PROCEDURE NOTE: The risks and benefits of the procedure were explained at length to the patient and informed written consent was obtained. Jamie Babin was present and assisted. The procedure was performed under sterile technique. The patient's leg was wrapped with Coban and postprocedural verbal and written instructions provided. SCLEROSANT: 4 cc, 0.5% polidocanol VEIN(S) INJECTED: 22 veins in the right leg VISUALIZATION: Ultrasound was not used to visualize the sclerosant ANESTHESIA Supercooled air COMPLICATIONS: None CONCLUSION: 1. Technically successful sclerotherapy as described Dictated by: Marialuisa Avitia MD on 03/19/2022 at 15:12 Approved by: Marialuisa Avitia MD on 03/19/2022 at 15:13 Normal [facility] VC INJ SCL BERTA FUEL CELL BINDER VEINSon 0 03-10-2022 VC INJ SCL BERTA FUEL CELL BINDER VEINS Patient: KOLTON NAPIER. Exam Date: 03/10/2022 : 1945 Gender:F Ordering : DR MARIALUISA AVITIA M.D. Admission #: [id number] Family : Order #: [id number] CLICK HERE TO VIEW EXAM RADIOLOGY REPORT PROCEDURE: VEIN CENTER INJECTION SCLEROSING SOLUTION MULTIPLE VEINS SAME COMPARISON: VC INJ SCL BERTA FUEL CELL BINDER VEINS, 03/03/2022. INDICATIONS: Pain co-occurrent and due to varicose veins of bilateral legs I83.813 PROCEDURE NOTE: The risks and benefits of the procedure were explained at length to the patient and informed written consent was obtained. Jamie Babin was present and assisted. The procedure was performed under sterile technique. The patient's leg was wrapped with Coban and postprocedural verbal and written instructions provided. SCLEROSANT: 4 cc, 0.5% polidocanol VEIN(S) INJECTED: 25 veins in the left leg VISUALIZATION: Ultrasound was not used to visualize the sclerosant ANESTHESIA Supercooled air COMPLICATIONS: None CONCLUSION: 1. Technically successful sclerotherapy as described Dictated by: Marialuisa Avitia MD on 03/10/2022 at 14:37 Approved by: Marialuisa Avitia MD on 03/10/2022 at 14:38 Normal [facility] VC INJ SCL BERTA FUEL CELL BINDER VEINSon 0 03-03-2022 VC INJ SCL BERTA FUEL CELL BINDER VEINS Patient: KOLTON NAPIER. Exam Date: 03/03/2022 : 1945 Gender:F Ordering : DR MARIALUISA AVITIA M.D. Admission #: [id number] Family : Order #: [id number] CLICK HERE TO VIEW EXAM RADIOLOGY REPORT PROCEDURE: VEIN CENTER INJECTION SCLEROSING SOLUTION MULTIPLE VEINS SAME COMPARISON: None. INDICATIONS: Pain co-occurrent and due to varicose veins of bilateral legs I83.813 PROCEDURE NOTE: The risks and benefits of the procedure were explained at length to the patient and informed written consent was obtained. Jamie Babin was present and assisted. The procedure was performed under sterile technique. The patient's leg was wrapped with Coban and postprocedural verbal and written instructions provided. SCLEROSANT: 4 cc, 0.5% polidocanol VEIN(S) INJECTED: 19 veins in the right leg VISUALIZATION: Ultrasound was not used to visualize the sclerosant ANESTHESIA Supercooled air COMPLICATIONS: None CONCLUSION: 1. Technically successful sclerotherapy as described Dictated by: Marialuisa Avitia MD on 03/03/2022 at 15:24 Approved by: Marialuisa Avitia MD on 03/03/2022 at 15:25 Normal [facility] VC CONSULT FOLLOWUPon 2021 VC CONSULT FOLLOWUP Patient: CARTER NAPIER Exam Date: 02/25/2022 : 1945 Gender:F Ordering : DR MARIALUISA AVITIA M.D. Admission #: [id number] Family : Order #: [id number] CLICK HERE TO VIEW EXAM RADIOLOGY REPORT PROCEDURE: VEIN CENTER CONSULTATION FOLLOWUP VEIN CENTER - OFFICE VISIT FOLLOW UP COMPARISON: VC CONSULT FOLLOWUP, 02/10/2022. PROGRESS NOTES: The patient reports improvement in leg symptoms. There has been interval reduction in varicosities. The patient has followed our recommendations to walk 20-30 minutes once or twice per day since the procedure. Physical exam demonstrates decrease in varicosities of the right leg. Persistent reticular and spider veins are identified along the legs bilaterally. Review of the ultrasound performed the same day demonstrates occlusive thrombus extending throughout the treated vein, see separate report, consistent with a successful ablation. No thrombus extending into or beyond the saphenofemoral junction. The patient expressed a desire to proceed with treatment of reticular veins and spider veins. The patient was informed that treatment was a process and would require several procedures/sessions. IMPRESSION: 1. Successful ablation of the treated branch saphenous varicosities. 2. Persistent reticular veins and spider veins PLAN: 1. Sclerotherapy of reticular veins and spider veins of the lower extremities. Nurse notes, history and physical were reviewed and confirmed, see attached forms. The nurse was present throughout the physical exam and consultation Dictated by: Noah Vaughan M.D. on 02/25/2022 at 15:39 Approved by: Noah Vaughan M.D. on 02/25/2022 at 15:41 Normal [facility] VC EXT VENOUS RT LIMITEDon 0 02-25-2022 VC EXT VENOUS RT LIMITED Patient: KOLTON NAPIER. Exam Date: 02/25/2022 : 1945 Gender:F Ordering : DR MARIALUISA AVITIA M.D. Admission #: [id number] Family : Order #: [id number] CLICK HERE TO VIEW EXAM RADIOLOGY REPORT PROCEDURE: VEIN CENTER EXTREMITY VENOUS RIGHT LIMITED COMPARISON: VC EXT VENOUS RT LIMITED, 02/10/2022. INDICATIONS: Phlebitis and thrombophlebitis of superficial veins of right lower extremity I80.01 TECHNIQUE: Lower extremity manriquez scale and Duplex Doppler evaluation of the deep venous system from the inguinal ligament through the calf veins. FINDINGS: REGION: Right lower extremity. THROMBI: Negative for DVT. Chemically induced thrombus in multiple varicose veins medial lower leg and thigh. Thrombus in GSV distal thigh to prox calf. COMPRESSIBILITY: Non-compressible AND partially compressible segments. FLOW: Areas of no flow. OTHER: CONCLUSION: 1. Successful post ablation occlusion treated right leg branch saphenous varicosities. Dictated by: Noah Vaughan M.D. on 02/25/2022 at 15:38 Approved by: Noah Vaughan M.D. on 02/25/2022 at 15:39 Normal [facility] VC INJ FOAM SCLERO W US MLTI on 02-19-2022 VC INJ FOAM SCLERO W US MLTI Patient: KOLTON NAPIER. Exam Date: 02/19/2022 : 1945 Gender:F Ordering : DR MARIALUISA AVITIA M.D. Admission #: [id number] Family : Order #: [id number] CLICK HERE TO VIEW EXAM RADIOLOGY REPORT PROCEDURE: VEIN CENTER INJECTION FOAM SCLEROSING SOLUTION WITH ULTRASOUND MULTIPLE VEINS COMPARISON: None. Pre-operative Diagnosis: CEAP class C4a venous insufficiency with pain, tenderness, edema and incompetent branch saphenous vein, chronic venous insufficiency right leg secondary to venous incompetence Post-operative Diagnosis: CEAP class C4a venous insufficiency with pain, tenderness, edema and incompetent branch saphenous vein, chronic venous insufficiency right leg secondary to venous incompetence Procedure Performed: 1. Ultrasound-guided microfoam chemical ablation with Varithena(r) 2. Intraoperative ultrasound guidance Physician: Noah Vaughan M.D. Anesthesia: None. Indications for Procedure: 76 year old female. Symptoms including lower extremity pain, swelling, and dilated veins for many years despite conservative medical therapy including medical compression stockings, exercise and analgesics. Prior procedures include: Endovenous laser ablation. Multiple incompetent varicosities of the right leg. Duplex scan showed reflux and enlarged diameters up to 4 mm. The patient has undergone informed consent including management options where the complications of infection, bleeding, pain, and skin injury were discussed. Particular attention was spent discussing thrombus extension and deep vein thrombosis as well as the possibility of pulmonary embolus and treatment with oral or injectable blood thinners. Procedure: The patient walked to the procedure room. All applicable staff donned appropriate apparel. A procedure timeout was performed to confirm correct patient, correct extremity, correct procedure, and correct room set-up including presence of all applicable supplies, devices, and drugs. A duplex ultrasound, performed by myself confirmed the location and incompetence of branch saphenous varicosities and their course was marked on the skin together with the dilated tributaries. The extent of treatment of the veins and the associated varicosities was determined through ultrasound mapping. The skin was prepped and then punctured with a butterfly needle and advanced under ultrasound guidance. The Varithena(r) canister was activated and the canister was primed and purged as required in the instructions for use. Varithena(r) was drawn into a sterile syringe. Varithena(r) was slowly administered at 0.5-1.0 cc/second with close observation by ultrasound of its course in the vessels. Total volume utilized was: 9 mL (4 mL within an incompetent 4 mm branch saphenous varicosity of the anterior medial mid lower leg; 5 mL within an incompetent 4 mm branch saphenous varicosity of the medial distal upper leg). Following administration of Varithena(r), the leg was elevated and the patient was asked to repeatedly dorsiflex the ankle to limit flow of Varithena(r) into perforating veins. Once appropriate spasm had been confirmed in the treated veins, the vascular catheter was removed from the leg and light pressure was applied over the puncture site for hemostasis The common femoral and deep superficial veins were then evaluated for flow and compressibility prior to dressing placement. The lower extremity was kept elevated at 45 degrees above the horizontal and cording material was applied over the saphenous segments and tributaries to allow for eccentric compression over the target vessels including the targeted saphenous vein(s). A multilayer dressing was applied consisting of foam pads, coban and thigh-high 20-30 mm Hg compression elastic support hose were placed on the patient. The leg was lowered only after compression had been applied and the patient was immediately ambulatory. The patient ambulated 10 minutes under supervision and was without apparent concerns at time of release Post-care instructions include advising patient to keep post-treatment bandages in place and dry for 48 hours, avoid extended periods of inactivity, avoid heavy exercise for one week, wear compression stockings on the treated leg continuously for two weeks, to walk daily for 10 minutes over the next month. The patient was instructed to take an anti-inflammatory medicine as needed and to follow up for color duplex scan of the Saphenous veins, the treated branch saphenous varicosities, the adjacent deep veins, and additional treatment within 7 days. PERSONNEL: Jamie Babin R.N. Dictated by: Noah Vaughan M.D. on 02/20/2022 at 09:03 Approved by: Noah Vaughan M.D. on 02/20/2022 at 09:07 Normal [facility] VC CONSULT FOLLOWUPon 2021 VC CONSULT FOLLOWUP Patient: CARTER NAPIER GALILEA MarthaNeal Exam Date: 02/10/2022 : 1945 Gender:F Ordering : DR MARIALUISA AVITIA M.D. Admission #: [id number] Family : Order #: [id number] CLICK HERE TO VIEW EXAM RADIOLOGY REPORT PROCEDURE: VEIN CENTER CONSULTATION FOLLOWUP VEIN CENTER - OFFICE VISIT FOLLOW UP COMPARISON: None. PROGRESS NOTES: The patient reports mild discomfort following intravenous laser ablation of the right small saphenous vein. The patient did wear her compression stocking. The patient did not require oral analgesics. The patient has followed our recommendations to walk 20-30 minutes once or twice per day since the procedure. Physical exam demonstrates no bruising. No erythema or warmth. No evidence of cellulitis or thrombophlebitis. Review of the ultrasound performed the same day demonstrates occlusive thrombus extending throughout the right small saphenous vein with heat induced thrombus 1.3 cm from the saphenous popliteal junction. Multiple incompetent varicose veins throughout the right leg. The patient expressed a desire to proceed with treatment incompetent varicose veins with micro foam chemical ablation. One session likely will be sufficient. IMPRESSION: 1. Successful ablation of the right small saphenous vein 2. Persistent incompetent varicose veins PLAN: Micro foam chemical ablation right leg Nurse notes, history and physical were reviewed and confirmed, see attached forms. The nurse was present throughout the physical exam and consultation Dictated by: Marialuisa Avitia MD on 02/10/2022 at 14:54 Approved by: Marialuisa Avitia MD on 02/10/2022 at 14:56 Normal [facility] VC EXT VENOUS RT LIMITEDon 0 02-10-2022 VC EXT VENOUS RT LIMITED Patient: KOLTON NAPIER Exam Date: 02/10/2022 : 1945 Gender:F Ordering : DR MARIALUISA AVITIA M.D. Admission #: [id number] Family : Order #: [id number] CLICK HERE TO VIEW EXAM RADIOLOGY REPORT PROCEDURE: VEIN CENTER EXTREMITY VENOUS RIGHT LIMITED COMPARISON: None. INDICATIONS: Phlebitis of superficial veins of lower extremity i80.01 TECHNIQUE: Lower extremity manriquez scale and Duplex Doppler evaluation of the deep venous system from the inguinal ligament through the calf veins. FINDINGS: REGION: Right lower extremity. THROMBI: Negative for DVT. Heat induced thrombus seen arising 1.3 cm from the SPJ. The heat induced thrombus extends from SPJ to mid calf. COMPRESSIBILITY: Noncompressibility corresponding to thrombus FLOW: Absent flow corresponding to thrombus OTHER: Residual varicose veins *Exam performed in accordance with [facility] practice guidelines- Peripheral venous ultrasound, September 28, 2009. CONCLUSION: Post ablation occlusion of the small saphenous vein with heat induced thrombus 1.3 cm from the saphenopopliteal junction Dictated by: Marialuisa Avitia MD on 02/10/2022 at 14:37 Approved by: Marialuisa Avitia MD on 02/10/2022 at 14:38 Normal [facility] VC ENDOVENOUS ABL 1ST V RTon 02-03-2022 VC ENDOVENOUS ABL 1ST V RT Patient: KOLTON NAPIER Exam Date: 02/03/2022 : 1945 Gender:F Ordering : DR MARIALUISA AVITIA M.D. Admission #: [id number] Family : Order #: [id number] CLICK HERE TO VIEW EXAM RADIOLOGY REPORT PROCEDURE: VEIN CENTER ENDOVENOUS ABLATION FIRST VEIN RIGHT COMPARISON: None. INDICATIONS: Pain co-occurrent and due to varicose veins of bilateral legs I83.813 OPERATIVE REPORT: The risks and benefits of the procedure had been previously discussed, and were rediscussed at length. Informed written consent was obtained by and Jamie bryson. Time out procedure was performed. The right lower extremity was prepared and draped in the usual sterile fashion to allow knee flexion in the sterile field. Duplex ultrasound probe was draped in a sterile cover, sterile transmission gel was used. Venous mapping was performed with the areas of dilation and large tributaries marked. The total length was 19 cm from the entry 6 cm above the medial malleolus to 3 cm below the saphenopopliteal junction. The diameter of the greater saphenous vein ranged from 6 mm. A 30 gauge needle and 1% buffered lidocaine was used to anesthetize the entry site. A 4 mm incision was made with a scalpel and the saphenous vein was entered percutaneously under direct ultrasound guidance with a micropuncture set, a single stick was successful in gaining access. A micro-guide wire was inserted and the needle removed. A micro-set including a dilator was inserted over the microwire and the needle and dilator were removed. A 0.018 guide wire was inserted through the micro-set and threaded through the saphenous vein to the saphenofemoral junction. The dilator was removed and an introducer sheath was inserted over the wire until the end of the sheath entered the saphenofemoral junction. The dilator and wire were removed and the 600 micron fiber was introduced and placed and positioned so that it extended beyond the sheath and was 3 cm peripheral to the saphenofemoral femoral junction. Final position of the fiber was determined by ultrasound guidance and duplex imaging. Tumescent anesthetic was delivered by ultrasound guidance. One hundred fifty cc of fluid was delivered along the entire course of the saphenous vein. The solution consisted of 500 cc of normal saline with 20mL of 1% lidocaine and 10 mL of sodium bicarbonate. A final positioning check was made. The energy source was turned on by means of the foot pedal and the fiber and sheath were withdrawn. The total number of Joules delivered was 1131. The laser was active for 141 seconds under continuous pulse, average laser use of 8 J. Laser start time 1:41 p.m. February 03, 2022. Laser stop time 1:44 p.m. February 03, 2022. A duplex ultrasound revealed compressibility and flow at the saphenofemoral junction immediately after the procedure. Hemostasis at the access site was achieved. The skin incision of the saphenous vein was closed with a 4 x 4. A compression stocking was applied. Postop instructions were given. A follow up appointment was recommended and scheduled. The patient tolerated the procedure well and was discharged in good condition. CONCLUSION: 1. Technically successful endovenous laser ablation of the right small saphenous vein. Dictated by: Noah Vaughan M.D. on 02/03/2022 at 13:58 Approved by: Noah Vaughan M.D. on 02/03/2022 at 14:01 Normal [facility] VC COMP CONSULTATIONon 01-22 VC COMP CONSULTATION Patient: DO HERI NAPIER Exam Date: 01/22/2022 : 1945 Gender:F Ordering : DR MARIALUISA AVITIA M.D. Admission #: [id number] Family : Order #: [id number] CLICK HERE TO VIEW EXAM RADIOLOGY REPORT PROCEDURE: VEIN CENTER CONSULTATION VEIN CENTER - OFFICE VISIT INITIAL COMPARISON: None. PROGRESS NOTES: 76-year-old female who presents with a 20 year history of lower extremity pain swelling and varicose veins. The patient's symptoms have progressed in the past 2 years. Patient's symptoms are significantly worse on the right. Patient complains of heaviness, aching and burning and rates the pain as a 8 on a scale of 1-10. The patient's pain is partially relieved by rest, leg elevation, compression stockings and over the counter Tylenol. The patient has worn compression stockings more than 10 years, knee high. The patient's symptoms are exacerbated by prolonged sitting or standing, limiting her daily activities including gardening. The patient denies any signs and symptoms to suggest arterial ischemia. The patient describes a family history significant for varicose veins in her mother. History of Alzheimer's and cerebrovascular disease in her father. . Patient has never smoked. Occasional alcohol use. No drug use. 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 The patient's past surgical history significant for hysterectomy and appendectomy. See separate medication list. No history of deep venous thrombus or pulmonary embolus. See separate history and physical for medication list. No prior treatment for varicose or spider veins. Nursing notes were reviewed kings. After history and physical exam I discussed at length the pathophysiology of venous hypertension and possible treatments, therapies and strategies available. We discussed at length the importance of elevating the lower extremities above the level of the heart, increased physical activity and compression stocking use. We discussed intravenous laser ablation, micro foam chemical ablation and injection sclerotherapy at length. The patient and the patient's 's questions were answered. Risks and benefits were discussed. Alternatives including bilateral thigh-high compression stockings and surgical interventions were discussed. Ultrasound venous reflux study performed the same day was discussed at length with the patient. The report demonstrates mild bilateral great saphenous vein venous insufficiency. Moderate right small saphenous vein venous insufficiency. Bilateral incompetent perforating veins. Bilateral incompetent branch saphenous varicose veins/tributaries. PHYSICAL EXAM: The right leg demonstrates mild scattered reticular and spider veins. No significant subcutaneous edema or active ulceration. Some mild hemosiderin staining of the lower leg. The left leg demonstrates mild scattered reticular and spider veins. No significant subcutaneous edema or active ulceration. Some mild hemosiderin staining of the lower leg Both thighs, legs and feet were symmetrically warm to the touch. Good posterior tibial and dorsalis pedis pulses were present bilaterally. IMPRESSION: 1. Mild bilateral great saphenous and moderate right small saphenous vein venous insufficiency 2. Mild bilateral incompetent lower extremity tributary/ varicose veins 3. No significant lower extremity subcutaneous edema 4. No definite flow significant arterial disease 5. CEAP: C4a, Ep, Asp, Pr PLAN: 1. Endovenous laser ablation right small saphenous vein 2. Possible right leg micro foam chemical ablation 3. Bilateral injection sclerotherapy 4. Long-term use of bilateral thigh-high 20-30 mm compression stockings 5. Elevated legs and increased physical activity for symptomatic relief Nurse notes, history and physical were reviewed and confirmed, see attached forms. The nurse was present throughout the physical exam and consultation Dictated by: Marialuisa Avitia MD on 01/22/2022 at 14:48 Approved by: Marialuisa Avitia MD on 01/22/2022 at 14:56 Normal [facility] VC VENOUS REFLUX SHARLENE LMTon 0 01-22-2022 VC VENOUS REFLUX SHARLENE LMT Patient: KOLTON NAPIER Exam Date: 01/22/2022 : 1945 Gender:F Ordering : DR MARIALUISA AVITIA M.D. Admission #: [id number] Family : Order #: [id number] CLICK HERE TO VIEW EXAM RADIOLOGY REPORT PROCEDURE: VEIN CENTER ULTRASOUND VENOUS REFLUX BILATERAL LIMTED COMPARISON: None. INDICATIONS: Pain co-occurrent and due to varicose veins of bilateral legs I83.813 TECHNIQUE: Duplex imaging of the lower extremity to assess the deep and superficial venous system for the presence of deep or superficial venous incompetence and to document the location and severity of disease. The study includes evaluation of the great saphenous vein (GSV), anterior accessory saphenous vein (AASV) and small saphenous vein (SSV). Patient scanned in reverse Trendelenburg and standing. FINDINGS: RIGHT LOWER EXTREMITY: Saphenofemoral Junction Reflux: Yes 7.6mm 1.7 sec GSV: Diam (mm) Reflux/ Time (sec) Proximal Thigh 5.7 Yes 0.7 Mid Thigh 5.3 No Distal Thigh 4.2 Yes 0.4 Prox Calf 2.9 Yes 0.2 Mid Calf 1.9 No Saphenopopliteal Junction Reflux: 5.8mm Yes 1.3 SSV: Proximal Calf 5.6 Yes 3.5 Mid Calf 5.6 Yes 2.1 AASV: Not present Thrombi: No acute or chronic thrombus visualized Compressibility: Normal Flow: Normal Heat Treat Supervisor: Dist/med calf 2.7mm with 0s. Mid/med calf 6.0mm with 0.6s. Dist/med thigh 2.8mm with 2.2s Tech Note: Incompetent SFJ, GSV, and SPJ. Patient was scanned while standing to measure SPJ. Patent varicose vein mid/med calf 3.3mm with 0s reflux. Patent varicose vein arising off of GSV medial knee 4.5mm with 0s reflux. Patent varicose vein mid/posterior arising off of SSV 2.5mm with 0s reflux. LEFT LOWER EXTREMITY: Saphenofemoral Junction Reflux: Yes 9.6 mm 1.8 sec GSV: Diam (mm) Reflux/Time (sec) Proximal Thigh 9.1 Yes 1.3 Mid Thigh 5.6 No Distal Thigh 4.4 No Prox Calf 3.0 No Mid Calf 2.8 No Saphenopopliteal Junction Relux: 4.4 mm No SSV: Proximal Calf 2.2 Mid Calf 1.7 No AASV: Proximal Thigh 4.0 No Thrombi: No acute or chronic thrombus visualized Compressibility: Normal Flow: 1.2s of reflux in popliteal vein Heat Treat Supervisor: Dist/med calf 4.7mm with 0s reflux. Tech Note: Incompetent SFJ and GSV. AASV is discontinuous after proximal thigh. Patent varicose vein prox/med calf with 0s reflux. CONCLUSION: 1. Mild bilateral great saphenous vein venous insufficiency 2. Moderate right small saphenous vein venous insufficiency 3. Bilateral incompetent perforating veins 4. Bilateral branch saphenous varicose veins measuring up to 4.5 mm in the right Dictated by: Marialuisa Avitia MD on 01/22/2022 at 14:16 Approved by: Marialuisa Avitia MD on 01/22/2022 at 14:18 Normal [facility] OBSOLETEon 05-15-2019 OBSOLETE Refill (KAROL) KOLTON NAPIER ([id number]) 1945 F Date Time Provider Department 05/15/19 JAMES JOHNSON During your visit today, we recorded the following information about you: Maribel Osorio Drop Forger II 05/16/2019 4:42 PM Signed Call from pharmacy requesting refill. Pending Prescriptions Disp Refills DILTIAZEM 30 MG TABLET 270 tablet 1 Sig: TAKE ONE TABLET BY MOUTH THREE TIMES A DAY FLORENCIA: Yes Patient last seen 05/30/18 Maribel Osorio Drop Forger II Allergies As of Date: 05/15/2019 Noted Allergy Reaction PENICILLINS 05/30/2018 11 - Vomiting Date Reviewed: 05/30/2018 Reviewed by: Kathie Avery (Rn) ELIJAH Chauhan - Fully Assessed Reason for Visit: Refill Request [94] Order(s):diltiazem (CARDIZEM) 30 mg tabletTAKE ONE TABLET BY MOUTH THREE TIMES A DAYDisp: 270 tabletRfl: 1 Prescriptions as of 05/15/2019 Sig: DILTIAZEM 30 MG TABLET TAKE ONE TABLET BY MOUTH THRE* POTASSIUM CHLORIDE ORAL Take 10 mEq by mouth twice da* ROSUVASTATIN 10 MG TABLET Take 10 mg by mouth once chandrika* ALPRAZOLAM 0.5 MG TABLET Take 0.5 mg by mouth three ti* CYCLOBENZAPRINE 10 MG TABLET Take 10 mg by mouth three taylor* OMEPRAZOLE 40 MG CAPSULE,GRIS* Take 40 mg by mouth twice fani* LOSARTAN 100 MG-HYDROCHLOROTH* Take 1 tablet by mouth once d* BENZONATATE 200 MG CAPSULE Take 200 mg by mouth three ti* FLUTICASONE FUR. 100 MCG-UMEC* Inhale as instructed. LEVALBUTEROL 0.63 MG/3 ML BERTA* Use 1 Ampule via nebulizer ev* ASPIRIN 81 MG TABLET,DELAYED * Take 81 mg by mouth once chandrika* Problem List As Of Date 05/15/2019 Noted Resolved Sinus tachycardia [R00.0] 05/30/2018 Prescriptions ordered this encounter Disp Refills Start End DILTIAZEM 30 MG TABLET 270 * 1 05/20/2019 Sig: TAKE ONE TABLET BY MOUTH THREE TIMES A DAY Medications Discontinued During This Encounter diltiazem (CARDIZEM) 30 mg tablet 90 t* 11 05/30/2018 05/20/2019 Route: ORAL Sig: Take 1 tablet by mouth three times daily. Disc: Reason for discontinue is not on file. Encounter Status:Closed by JAMES JOHNSON MD on 05/20/19 [facility] CNOVon 05-30-2018 CNOV Office Visit (CARDMN ) NAPIERKOLTON ([id number]) 1945 F Date Time Provider Department 05/30/18 2:00 PM JAMES JOHNSON During your visit today, we recorded the following information about you: Pulse Blood pressure Weight Height 114/minute 140/78 73.9 kg 1.626 m James Johnson MD, MD 05/30/2018 5:53 PM Signed [facility] Department of Cardiovascular Medicine SECTION OF CARDIAC PACING and ELECTROPHYSIOLOGY OUTPATIENT VISIT DATE May 30, 2018 OUTPATIENT VISIT TYPE NEW PRIMARY CARE PHYSICIAN: Shaheed De La Torre MD ([facility]) [address] [place] [address] IMPRESSION/PLAN: The patient is very pleasant female with past medical history significant for severe asthma on long-term oral steroids and sinus tachycardia with palpitations. Sinus tachycardia: I discussed with the patient that sinus tachycardia shouldn?t be benign. I suspect that this is the result of long-term steroids in the relatively recent wheezing. Her pulmonary disease may also be contributing. Given her history of severe asthma, I think we should avoid data blockers. She did have some lightheadedness with diltiazem in the past but I think it be worth re-trailing very low-dose. She knows to stop the medication if she has recurrent lightheadedness. We can titrate the diltiazem upward if it is not controlling her heart rate. I also instructed her to stay very well hydrated and recommended initiation of light to moderate cardiovascular exercise in hopes of reconditioning the sinus node. HPI: The patient presents for evaluation of sinus tach and palpitations. She states that her resting heart rates have been about 110-120 bpm. With minimal activity, she finds her heart rate elevates even higher. She was on prednisone, 20 mg daily for about 7 years for severe asthma. This was discussed to needed a few months ago. Without wheezing, she noticed extreme change in appetite and lost 50 pounds. She also noticed the increase in heart rate around this time. The patient states she is also struggling with viral lung infection. She denies any history of syncope or presyncope. She had a recent admission to the hospital for hypoxia and tachycardia. During that time, diltiazem was initially started but the patient felt lightheaded. This was changed to verapamil. She is no longer on verapamil today but the patient is unsure why that was discontinued. NURSING INTAKE HISTORY: Ms. Napier is a 72 year old female who presents today for sinus tachycardia. She has a past medical history of arthritis, GERD, hypertension, and asthma previously on prednisone therapy who was recently admitted 03/2018 for asthma exacerbation and noted to have sinus tachycardia treated with Cardizem which improved the tachycardia. She notes lightheadedness on the Cardizem so this was changed to Verapamil. She wore a 24 hour holter in March that showed NSR with an average heart rate of 94 bpm. No atrial fibrillation noted and denies ever being told she had an arrhythmia. She states she started to experience an increase in her heart rate after stopping the prednisone in February (?) at the recommendation of her local physician due to significant weight gain. Since stopping the prednisone she notes a decline in her functional status and increase in her symptoms of fatigue and weakness. She presents today for a second opinion as she feels like she is not improving. She is currently being followed by pulmonary and was treated with antibiotics for a lung infection. Placed on Xopenex and Trelegy. She had an echo 03/2018 that showed her LVEF at 75%. PAST MEDICAL HISTORY Diagnosis Date - Arthritis - Asthma - GERD (gastroesophageal reflux disease) - HTN (hypertension) No past surgical history on file. SOCIAL HISTORY Social History Substance Use Topics - Smoking status: Not on file - Smokeless tobacco: Not on file - Alcohol use Not on file No family history on file.ALLERGIES: ALLERGIES Allergen Reactions - Penicillins Vomiting MEDICATIONS: POTASSIUM CHLORIDE ORAL Take 10 mEq by mouth twice daily. rosuvastatin (CRESTOR) 10 mg tablet Take 10 mg by mouth once daily. ALPRAZolam (XANAX) 0.5 mg tablet Take 0.5 mg by mouth three times daily as needed. cyclobenzaprine (FLEXERIL) 10 mg tablet Take 10 mg by mouth three times daily as needed. Omeprazole 40 mg capsule Take 40 mg by mouth twice daily. losartan-hydrochloroth iazide (HYZAAR) 100-25 mg per tablet Take 1 tablet by mouth once daily. Benzonatate 200 mg capsule Take 200 mg by mouth three times daily as needed. fluticasone-umeclidin- vilanter (TRELEGY ELLIPTA) 100-62.5-25 mcg dsdv Inhale as instructed. levalbuterol (XOPENEX) 0.63 mg/3 mL nebulizer solution Use 1 Ampule via nebulizer every 4 hours as needed. aspirin, enteric coated (ASPIRIN, ENTERIC COATED) 81 mg EC tablet Take 81 mg by mouth once daily. REVIEW OF SYSTEMS: GENERAL: Positive for:Weight loss and Weakness HEENT: Positive for:Glasses NECK: Negative for: Swelling, Pain, Stiffness RESPIRATORY: Positive for: Shortness of breath and Wheezing GASTROINTESTINAL: Negative for: Trouble swallowing, Heartburn, Change in bowel habits, Blood in stool, Dark black stools MUSCULOSKELETAL: Positive for: Muscle or joint pain and Stiffness NEUROLOGIC/PSYCHIATRIC : Positive for: Nervousness or anxiety, Depressed mood, Memory loss SKIN: Positive for: Itching HEMATOLOGICAL/LYMPHATI C: Negative for: Easy bruising, Easy bleeding ENDOCRINE: Positive for: Frequent thirst Kathie Chauhan RN PHYSICAL EXAMINATION: BP 140/78 Pulse 114 Ht 162.6 cm (5' 4 ) Wt 73.9 kg (163 lb) BMI 27.98 kg/m? Physical Exam Constitutional: She appears well-developed and well-nourished. HENT: Head: Normocephalic and atraumatic. Mouth/Throat: Oropharynx is clear and moist and mucous membranes are normal. Eyes: Pupils are equal, round, and reactive to light. EOM are normal. Neck: No JVD present. Carotid bruit is not present. Cardiovascular: Normal rate, regular rhythm and normal heart sounds. No murmur heard. Pulmonary/Chest: Breath sounds normal. Abdominal: Normal appearance and bowel sounds are normal. Musculoskeletal: She exhibits no edema or deformity. Neurological: She is alert. She displays no tremor. Skin: Skin is warm and dry. DATA: (The following studies were reviewed personally) ECG today: Sinus tachycardia at 114 bpm. IL 154 ms, QRS 86 ms, QTC 460 ms. FOLLOW UP: Return in about 4 months (around 09/27/2018). This note was created using computerized extruding department supervisor software and may therefore include some extruding department supervisor errors including errors in gender and inappropriate words or phrases. I reviewed old records, obtained relevant HPI and PMH from the pt, examined the patient and created the above report. James Johnson MD May 30, 2018 Note to: Shaheed De La Torre MD ([facility]) [address] [place] [address] James Johnson MD, 05/30/2018 3:19 PM Signed If symptoms not improving in 7-10 days on low dose diltiazem, call. Referring Provider: REFERRAL, NO(HIST) [[id number]] Allergies As of Date: 05/30/2018 Noted Allergy Reaction PENICILLINS 05/30/2018 11 - Vomiting Date Reviewed: 05/30/2018 Reviewed by: Kathie Avery (Rn) ELIJAH Chauhan - Fully Assessed Primary Visit Diagnosis:Sinus tachycardia [R00.0] Order(s):diltiazem (CARDIZEM) 30 mg tabletTake 1 tablet by mouth three times daily.Disp: 90 tabletRfl: 11 Prescriptions as of 05/30/2018 Sig: POTASSIUM CHLORIDE ORAL Take 10 mEq by mouth twice da* ROSUVASTATIN 10 MG TABLET Take 10 mg by mouth once chandrika* ALPRAZOLAM 0.5 MG TABLET Take 0.5 mg by mouth three ti* CYCLOBENZAPRINE 10 MG TABLET Take 10 mg by mouth three taylor* OMEPRAZOLE 40 MG CAPSULE,GRIS* Take 40 mg by mouth twice fani* LOSARTAN 100 MG-HYDROCHLOROTH* Take 1 tablet by mouth once d* BENZONATATE 200 MG CAPSULE Take 200 mg by mouth three ti* FLUTICASONE 100 MCG-UMECLID 6* Inhale as instructed. LEVALBUTEROL 0.63 MG/3 ML BERTA* Use 1 Ampule via nebulizer ev* ASPIRIN 81 MG TABLET,DELAYED * Take 81 mg by mouth once chandrika* DILTIAZEM 30 MG TABLET Take 1 tablet by mouth three * Problem List As Of Date 05/30/2018 Noted Resolved Sinus tachycardia [R00.0] INVALID FOR* Other instructions from your clinician: If symptoms not improving in 7-10 days on low dose diltiazem, call. Prescriptions ordered this encounter Disp Refills Start End DILTIAZEM 30 MG TABLET 90 t* 11 05/30/2018 Route: ORAL Sig: Take 1 tablet by mouth three times daily. Disposition: Return in about 4 months (around 09/27/2018). Follow-up and Disposition History Recorded Encounter Status:Closed by JAMES JOHNSON MD on 05/30/18 Normal [facility] ECG COMPLETE W INTERPRETATIO Non 05-30-2018 ECG COMPLETE W INTERPRETATION NAME : KOLTON NAPIER PID : [id number] : 1945 Gender : Female Race : ORD : [id number] Procedure Date : May 30 2018 13:36:13 Edit Date : May 31 2018 13:51:33 Diagnosis:SINUS TACHYCARDIA WITH PREMATURE ATRIAL COMPLEXES OTHERWISE NORMAL ECG Confirmed by MD YAN TAMANNA ([id number]) on 05/31/2018 1:51:26 PM Ventricular Rate : 114 BPM Atrial Rate : 114 BPM P-R Interval : 154 ms QRS Duration : 86 ms Q-T Interval : 334 ms QTC Calculation(Bezet) : 460 ms P Mills : 37 degrees R Mills : 30 degrees T Mills : 46 degrees Test Reason : Location : 314 : [facility] Overread By : MD YAN TAMANNA Edited By : MD YAN TAMANNA Referred By : JAMES JOHNSON Acquired by : BHUMIKA SANCHEZ [facility] PROGRESSon 05-30-2018 PROGRESS HNO ID: [id number] Author: James Johnson MD Service: (none) Author Type: Physician Type: Progress Notes Filed: 05/30/2018 5:53 PM Note Text: [facility] Department of Cardiovascular Medicine SECTION OF CARDIAC PACING and ELECTROPHYSIOLOGY OUTPATIENT VISIT DATE May 30, 2018 OUTPATIENT VISIT TYPE NEW PRIMARY CARE PHYSICIAN: Shaheed De La Torre MD ([facility]) [address] [place] [address] IMPRESSION/PLAN: The patient is very pleasant female with past medical history significant for severe asthma on long-term oral steroids and sinus tachycardia with palpitations. Sinus tachycardia: I discussed with the patient that sinus tachycardia shouldn?t be benign. I suspect that this is the result of long-term steroids in the relatively recent wheezing. Her pulmonary disease may also be contributing. Given her history of severe asthma, I think we should avoid data blockers. She did have some lightheadedness with diltiazem in the past but I think it be worth re-trailing very low-dose. She knows to stop the medication if she has recurrent lightheadedness. We can titrate the diltiazem upward if it is not controlling her heart rate. I also instructed her to stay very well hydrated and recommended initiation of light to moderate cardiovascular exercise in hopes of reconditioning the sinus node. HPI: The patient presents for evaluation of sinus tach and palpitations. She states that her resting heart rates have been about 110-120 bpm. With minimal activity, she finds her heart rate elevates even higher. She was on prednisone, 20 mg daily for about 7 years for severe asthma. This was discussed to needed a few months ago. Without wheezing, she noticed extreme change in appetite and lost 50 pounds. She also noticed the increase in heart rate around this time. The patient states she is also struggling with viral lung infection. She denies any history of syncope or presyncope. She had a recent admission to the hospital for hypoxia and tachycardia. During that time, diltiazem was initially started but the patient felt lightheaded. This was changed to verapamil. She is no longer on verapamil today but the patient is unsure why that was discontinued. NURSING INTAKE HISTORY: Ms. Napier is a 72 year old female who presents today for sinus tachycardia. She has a past medical history of arthritis, GERD, hypertension, and asthma previously on prednisone therapy who was recently admitted 03/2018 for asthma exacerbation and noted to have sinus tachycardia treated with Cardizem which improved the tachycardia. She notes lightheadedness on the Cardizem so this was changed to Verapamil. She wore a 24 hour holter in March that showed NSR with an average heart rate of 94 bpm. No atrial fibrillation noted and denies ever being told she had an arrhythmia. She states she started to experience an increase in her heart rate after stopping the prednisone in February (?) at the recommendation of her local physician due to significant weight gain. Since stopping the prednisone she notes a decline in her functional status and increase in her symptoms of fatigue and weakness. She presents today for a second opinion as she feels like she is not improving. She is currently being followed by pulmonary and was treated with antibiotics for a lung infection. Placed on Xopenex and Trelegy. She had an echo 03/2018 that showed her LVEF at 75%. PAST MEDICAL HISTORY Diagnosis Date - Arthritis - Asthma - GERD (gastroesophageal reflux disease) - HTN (hypertension) No past surgical history on file. SOCIAL HISTORY Social History Substance Use Topics - Smoking status: Not on file - Smokeless tobacco: Not on file - Alcohol use Not on file No family history on file.ALLERGIES: ALLERGIES Allergen Reactions - Penicillins Vomiting MEDICATIONS: POTASSIUM CHLORIDE ORAL Take 10 mEq by mouth twice daily. rosuvastatin (CRESTOR) 10 mg tablet Take 10 mg by mouth once daily. ALPRAZolam (XANAX) 0.5 mg tablet Take 0.5 mg by mouth three times daily as needed. cyclobenzaprine (FLEXERIL) 10 mg tablet Take 10 mg by mouth three times daily as needed. Omeprazole 40 mg capsule Take 40 mg by mouth twice daily. losartan-hydrochloroth iazide (HYZAAR) 100-25 mg per tablet Take 1 tablet by mouth once daily. Benzonatate 200 mg capsule Take 200 mg by mouth three times daily as needed. fluticasone-umeclidin- vilanter (TRELEGY ELLIPTA) 100-62.5-25 mcg dsdv Inhale as instructed. levalbuterol (XOPENEX) 0.63 mg/3 mL nebulizer solution Use 1 Ampule via nebulizer every 4 hours as needed. aspirin, enteric coated (ASPIRIN, ENTERIC COATED) 81 mg EC tablet Take 81 mg by mouth once daily. REVIEW OF SYSTEMS: GENERAL: Positive for:Weight loss and Weakness HEENT: Positive for:Glasses NECK: Negative for: Swelling, Pain, Stiffness RESPIRATORY: Positive for: Shortness of breath and Wheezing GASTROINTESTINAL: Negative for: Trouble swallowing, Heartburn, Change in bowel habits, Blood in stool, Dark black stools MUSCULOSKELETAL: Positive for: Muscle or joint pain and Stiffness NEUROLOGIC/PSYCHIATRIC : Positive for: Nervousness or anxiety, Depressed mood, Memory loss SKIN: Positive for: Itching HEMATOLOGICAL/LYMPHATI C: Negative for: Easy bruising, Easy bleeding ENDOCRINE: Positive for: Frequent thirst Kathie Chauhan RN PHYSICAL EXAMINATION: BP 140/78 Pulse 114 Ht 162.6 cm (5' 4 ) Wt 73.9 kg (163 lb) BMI 27.98 kg/m? Physical Exam Constitutional: She appears well-developed and well-nourished. HENT: Head: Normocephalic and atraumatic. Mouth/Throat: Oropharynx is clear and moist and mucous membranes are normal. Eyes: Pupils are equal, round, and reactive to light. EOM are normal. Neck: No JVD present. Carotid bruit is not present. Cardiovascular: Normal rate, regular rhythm and normal heart sounds. No murmur heard. Pulmonary/Chest: Breath sounds normal. Abdominal: Normal appearance and bowel sounds are normal. Musculoskeletal: She exhibits no edema or deformity. Neurological: She is alert. She displays no tremor. Skin: Skin is warm and dry. DATA: (The following studies were reviewed personally) ECG today: Sinus tachycardia at 114 bpm. IL 154 ms, QRS 86 ms, QTC 460 ms. FOLLOW UP: Return in about 4 months (around 09/27/2018). This note was created using computerized extruding department supervisor software and may therefore include some extruding department supervisor errors including errors in gender and inappropriate words or phrases. I reviewed old records, obtained relevant HPI and PMH from the pt, examined the patient and created the above report. James Johnson MD May 30, 2018 Note to: Shaheed De La Torre MD ([facility]) [address] [place] [address] Normal [facility] Vital Signs Date Time Vital Sign Value Performing Clinician Faci lity 08-19-2023 14:36-0500 Body height 162.6 cm Shaheed De La Torre MD Work Phone: [facility] 08-19-2023 14:36-0500 Body mass index (BMI) [Ratio] 26.09 kg/m2 Shaheed De La Torre MD Work Phone: [facility] 08-19-2023 14:36-0500 Body temperature 98.1 [degF] Shaheed De La Torre MD Work Phone: [facility] 08-19-2023 14:36-0500 Body weight 68.95 kg Shaheed De La Torre MD Work Phone: [facility] 08-19-2023 14:36-0500 Diastolic blood pressure 70 mm[Hg] Shaheed De La Torre MD Work Phone: [facility] 08-19-2023 14:36-0500 Heart rate 71 /min Shaheed De La Torre MD Work Phone: [facility] 08-19-2023 14:36-0500 SaO2% (BldA) [Mass fraction] 98 % Shaheed De La Torre MD Work Phone: [facility] 08-19-2023 14:36-0500 Systolic blood pressure 108 mm[Hg] Shaheed De La Torre MD Work Phone: [facility] Encounters Encounter Date Encounter Type Care Provider Facility Start: 09-15-2023 End: 09-15-2023 ambulatory SHAHEED DE LA TORRE Not Available Start: 08-23-2023 End: 08-23-2023 ambulatory [facility] Start: 08-19-2023 End: 08-19-2023 ambulatory SHAHEED DE LA TORRE Not Available Start: 08-19-2023 End: 08-19-2023 Office outpatient visit 25 minutes Shaheed De La Torre MD Work Phone: [facility] Comment on above: Benign essential hyp ertension (CMS/HCC) (Primary Dx); LAUREL (generalized anxiety disorder) (CMS/HCC); Lumbosacral spinal stenosis; Seasonal allergic rhinitis due to pollen; GERD without esophagitis; Dyslipidemia (CMS/HCC); Encounter for long-term (current) use of medications; MDD (major depressive disorder), recurrent episode, mild (HCC) (CMS/HCC) [facility] Work Phone[facility] Start: 08-19-2023 [facility] Work Phone: [facility] Start: 06-10-2023 End: 06-10-2023 ambulatory SHAHEED DE LA TORRE Not Available Start: 09-24-2022 End: 09-25-[address] NOAH VAUGHAN Facility:[facility] Start: 08-31-2022 End: 08-31-2022 ambulatory [facility] Start: 07-17-2022 End: 07-18-[address] SHAHEED DE LA TORRE Facility:[facility] Start: 04-16-2022 End: 04-17-[address] MARIALUISA AVITIA Facility:[facility] Start: 04-02-2022 End: 04-03-[address] MARIALUISA AVITIA Facility:[facility] Start: 03-24-2022 End: 03-25-[address] MARIALUISA AVITIA Facility:[facility] Start: 03-19-2022 End: 03-20-[address] MARIALUISA AVITIA Facility:[facility] Start: 03-10-2022 End: 03-11-[address] MARIALUISA AVITIA Facility:[facility] Start: 03-03-2022 End: 03-04-[address] MARIALUISA AVITIA Facility:[facility] Start: 02-25-2022 End: 02-26-[address] MARIALUISA AVITAI Facility:[facility] Start: 02-19-2022 End: 02-20-[address] MARIALUISA AVITIA Facility:[facility] Start: 02-10-2022 End: 02-11-[address] MARIALUISA AVITIA Facility:[facility] Start: 02-03-2022 End: 02-04-[address] MARIALUISA AVITIA Facility:[facility] Start: 01-22-2022 End: 01-23-[address] MARIALUISA AVITIA Facility:[facility] Plan of Treatment Date Care Activity Detail Author Start: 08-19-2023 End: 08-19-2023 Patient encounter procedure 08/19/2023 2:30 PM EST Office Visit [facility] [address] [place] [address] Shaheed De La Torre MD [address] [place] [address] Arrived [facility] Comment on above: Arrived Start: 08-19-2023 End: 08-19-2024 Basic metabolic 1998 panel - Serum or Plasma Basic metabolic panel Lab Routine Benign essential hypertension (CMS/HCC) Expected: 08/19/2023 (Approximate), Expires: 08/19/2024 [facility] Work Phone: Comment on above: Expected: 08/19/2023 (Approximate), Expires: 08/19/2024 Start: 08-19-2023 End: 08-19-2024 CBC W Auto Differential panel - Blood CBC and differential Lab Routine Encounter for long-term (current) use of medications Expected: 08/19/2023 (Approximate), Expires: 08/19/2024 [facility] Comment on above: Expected: 08/19/2023 (Approximate), Expires: 08/19/2024 Start: 08-19-2023 End: 08-19-2024 Hepatic function 2000 panel - Serum or Plasma Hepatic function panel Lab Routine Encounter for long-term (current) use of medications Expected: 08/19/2023 (Approximate), Expires: 08/19/2024 [facility] Comment on above: Expected: 08/19/2023 (Approximate), Expires: 08/19/2024 Start: 08-19-2023 End: 08-19-2024 Lipid 1996 panel - Serum or Plasma Lipid panel Lab Routine Dyslipidemia (CMS/HCC) Expected: 08/19/2023 (Approximate), Expires: 08/19/2024 [facility] Comment on above: Expected: 08/19/2023 (Approximate), Expires: 08/19/2024 Start: 1945 Medicare Annual Wellness (AWV) Medicare Annual Wellness (AWV) [facility] Payers Date Payer Category Payer Medicare AETNA MEDICARE A DVANTAGE AETNA MEDICARE REPLACEMENT [id number] 2022-Present [address] [place] [address] [id number] 1959 Medicare [id number] 1945 Unknown [id number] 1945 Unknown [id number] [id number] 1945 Unknown [id number] [id number] 1945 Unknown [id number] [id number] 1945 Unknown [id number] [id number] 1945 Unknown [id number] 2.16.840.1.198022.3.579.2.593 1945 Unknown [id number] 2.16.840.1.792625.3.579.2.593 1945 Unknown [id number] 2.16.840.1.002735.3.579.2.593 1945 Unknown [id number] 2.16.840.1.443854.3.579.2.593 1945 Unknown [id number] 2.16.840.1.394761.3.579.2.593 1945 Unknown [id number] 2.16.840.1.741540.3.579.2.593 1945 Unknown [id number] 2.16.840.1.170613.3.579.2.593 1945 Unknown [id number] 2.16.840.1.016127.3.579.2.593 1945 Unknown [id number] 2.16.840.1.428721.3.579.2.1259 1945 Unknown [id number] [id number] 1945 Unknown [id number] Social History Date Type Detail Facility Start: 06-10-2023 End: 08-19-2023 Tobacco smoking status MSIS Never smoked tobacco [facility] Start: 06-10-2023 End: 08-19-2023 Tobacco use and exposure Smokeless tobacco non-user [facility] Start: 06-10-2023 End: 08-19-2023 Alcohol intake Ex-drinker (finding) [facility] Start: 06-10-2023 End: 08-19-2023 History of Social function [facility] Start: 06-10-2023 End: 08-19-2023 Tobacco use panel [facility] Start: 06-10-2023 Alcohol Comment [facility] Start: 1945 Sex Assigned At Not on file [facility] NEGATED: Highlighted rowStart: KAYLEEF History of tobacco use Passive smoker [facility] Progress note 08-23-2023 Note Date & Type Note Facility 08-23-2023 Note [facility] Clinic Note Chief Complaint: Patient here for 1 year follow up mitral and aortic valves stenosis and hypertension. Echo was performed in Mar 2023. She denies chest pain, SOB, palpitations, and lightheadedness/syncope. Doing very well. HPI: Kolton Napier is a 77 y.o. female with hypertension, aortic valve stenosis, palpitations, and COPD seen in follow-up. Last seen by Dr. Ng in 06/2021. BP at home runs in the 120s/70-80s. She is doing well from a cardiac standpoint without concerns. She notes mild left ankle swelling, at times uncomfortable with ambulation. UPDATE 08/23/2023 Doing very well. No new cardiovascular complaints. Cardiology ROS: Review of Systems Respiratory: Positive for cough. All other systems reviewed and are negative. Past Medical History She has a past medical history of COPD (chronic obstructive pulmonary disease) ([facility]), Heart murmur, Heart valve disease, Hypertension, Palpitations, Peripheral venous insufficiency, and Tachycardia. Surgical History She has a past surgical history that includes Appendectomy and Hysterectomy. Social History She reports that she has never smoked. She has never used smokeless tobacco. She reports that she does not currently use alcohol. No history on file for drug use. Family History Family History Problem Relation Name Age of Onset Coronary artery disease Mother Coronary artery disease Brother Allergies Cefdinir, Penicillins, and Albuterol sulfate Medications Current Outpatient Medications: ALPRAZolam (Xanax) 0.5 mg tablet, alprazolam 0.5 mg tablet, Disp: , Rfl: benzonatate (Tessalon) 200 mg capsule, 1 capsule every 8 (eight) hours., Disp: , Rfl: dilTIAZem (Cardizem) 60 mg immediate release tablet, TAKE ONE TABLET BY MOUTH EVERY MORNING, AT NOON, AND AT BEDTIME, Disp: 270 tablet, Rfl: 3 FLUoxetine (PROzac) 20 mg tablet, in the morning., Disp: , Rfl: losartan-hydrochlorothiazide (Hyzaar) 100-25 mg tablet, in the morning., Disp: , Rfl: omeprazole (PriLOSEC) [address] capsule, Take 40 mg by mouth in the morning and 40 mg in the evening., Disp: , Rfl: potassium chloride CR (K-Tab) 20 mEq ER tablet, every 12 (twelve) hours., Disp: , Rfl: rosuvastatin (Crestor) 10 mg tablet, in the morning., Disp: , Rfl: Last Recorded Vitals BP 110/82 (BP Location: Left arm, Patient Position: Sitting) Pulse 77 Ht 1.626 m (5' 4 ) Wt 70.3 kg (155 lb) SpO2 97% BMI 26.61 kg/m??? Physical Examination: GENERAL: alert and oriented x3, well developed, in no acute distress. HEAD: atraumatic, normocephalic. EYES: NEO, EOMI. NECK: trachea midline, no JVD present, no carotid bruits present. CARDIAC: S1, S2 present. RRR. No murmur, rubs, or gallops. RESPIRATORY: CTAB, no increased effort of breathing, no rales, rhonchi, or wheezing. ABDOMEN: soft, nontender, nondistended. EXTREMITIES: no lower extremity edema, peripheral pulses are 2+ bilaterally. No rash/skin discoloration present. NEURO: strength/sensation equal and symmetric in bilateral upper and lower extremities. PSYCH: appropriate mood, affect, and judgement. Investigations: Echocardiogram 09/04/2020: Global left ventricular systolic function is normal; ejection fraction is 55 to 60%. The left atrium is mildly dilated. The right ventricle is normal in size and systolic function. Mild aortic stenosis. Echocardiogram 03/12/2023: Conclusion: 1. Global left ventricular systolic function is normal. Ejection fraction is 55 to 60% 2. Normal right ventricular size and systolic function 3. Normal diastolic function 4. Mild to moderate biatrial dilatation 5. Mild to moderate aortic valve stenosis 6. Normal right-sided pressures Assessment: 1. Essential hypertension 2. Intermittent palpitations 3. Tachycardia/paroxysmal supraventricular tachycardia sinus - likely exacerbated by underlying lung disorder and inhaler therapy R00.0: Tachycardia, unspecified 4. Heart murmur R01.1: Cardiac murmur, unspecified 5. Dyspnea on exertion - Stable - attributed to COPD, inhalers help R06.09: Other forms of dyspnea 6. Chronic obstructive lung disease J44.9: Chronic obstructive pulmonary disease, unspecified 7. Aortic valve stenosis - Mild per 09/2020 ECHO - continue to monitor with serial ECHOs I35.0: Nonrheumatic aortic (valve) stenosis 8. Peripheral venous insufficiency I87.2: Venous insufficiency (chronic) (peripheral) Plan: Continue current medical therapy which includes a calcium channel nate, and angiotensin receptor nate/hydrochlorothiazide and Crestor She will need serial monitoring for her aortic valve stenosis; will repeat an echo in March of this year She is to let us know of any new or worsening symptomatology Return to clinic following her echocardiogram Eve Adams MD, MPH, FACC, [facility], [facility] Interventional Cardiology Pager Email: [email or web address] History of Present illness Narrative 08-19-2023 Shaheed De La Torre MD - 08/19/2023 3:12 PM Clarence De La Torre MD - 08/19/2023 3:11 PM Clarence De La Torre MD - 08/19/2023 3:11 PM Clarence De La Torre MD - 08/19/2023 3:10 PM EST Note Date & Type Note Facility 08-19-2023 History of Presen t illness Narrative Associated Problem(s): MDD (major depressive disorder), recurrent episode, mild (HCC) (CMS/HCC) Symptoms controlled with prozac and continue. Associated Problem(s): Seasonal allergic rhinitis due to pollen Symptoms controlled with medication and continue. Associated Problem(s): Lumbosacral spinal stenosis Occasional pain but tolerable and sia OTC PRN. Associated Problem(s): GERD without esophagitis Symptoms controlled with omeprazole and continue. Associated Problem(s): LAUREL (generalized anxiety disorder) (CMS/HCC) Symptoms controlled with prozac and continue. Use xanax PRN. Associated Problem(s): Benign essential hypertension (CMS/HCC) BP controlled and monitor PRN. Subjective Patient ID: Kolton Napier is a 77 y.o. female who presents for Follow-up. F/u HTN, depression, anxiety, back pain, allergies, and GERD. Patient feels well today. Checking BP PRN and typically controlled. BP okay today. Taking medication daily and tolerating without side effects. Depression controlled with prozac. Not as down or sad and feels happier . Anxiety stable. Not as stressed out or overwhelmed. Not as nervous or worry as much. Not as mera or irritable. Using xanax PRN and helps when needed. Back pain stable. Mild pain in low back and across top hips. No radiation into gluteal region or down legs. Using OTC PRN and pain tolerable. Allergies controlled with medication. No congestion or rhinorrhea. No RIVERO or sinus pressure. Ears not plugged or popping. GERD controlled with omeprazole. Denies epigastric pain or burning and not waking up with symptoms. Review of Systems Respiratory: Negative for cough, shortness of breath and wheezing. Cardiovascular: Negative for chest pain and palpitations. Gastrointestinal: Negative for abdominal pain, diarrhea, nausea and vomiting. Genitourinary: Negative for dysuria. Objective Physical Exam Constitutional: General: She is not in acute distress. Appearance: Normal appearance. HENT: Head: Normocephalic. Right Ear: Tympanic membrane normal. Left Ear: Tympanic membrane normal. Eyes: Extraocular Movements: Extraocular movements intact. Pupils: Pupils are equal, round, and reactive to light. Cardiovascular: Rate and Rhythm: Normal rate and regular rhythm. Heart sounds: No murmur heard. No friction rub. No gallop. Pulmonary: Effort: Pulmonary effort is normal. Breath sounds: Normal breath sounds. No wheezing, rhonchi or rales. Abdominal: General: Bowel sounds are normal. There is no distension. Palpations: Abdomen is soft. Tenderness: There is no abdominal tenderness. There is no guarding or rebound. Musculoskeletal: Cervical back: Neck supple. Right lower leg: No edema. Left lower leg: No edema. Neurological: Mental Status: She is alert. Assessment/Plan Problem List Items Addressed This Visit Benign essential hypertension (CMS/HCC) - Primary BP controlled and monitor PRN. Relevant Orders Basic metabolic panel Dyslipidemia (CMS/HCC) Relevant Orders Lipid panel LAUREL (generalized anxiety disorder) (CMS/HCC) Symptoms controlled with prozac and continue. Use xanax PRN. GERD without esophagitis Symptoms controlled with omeprazole and continue. Lumbosacral spinal stenosis Occasional pain but tolerable and sia OTC PRN. Seasonal allergic rhinitis due to pollen Symptoms controlled with medication and continue. MDD (major depressive disorder), recurrent episode, mild (HCC) (CMS/HCC) Symptoms controlled with prozac and continue. Encounter for long-term (current) use of medications Relevant Orders CBC and differential Hepatic function panel documented in this encounter [facility] Progress note 08-31-2022 Note Date & Type Note Facility 08-31-2022 Note Patient is here toda y for 1yr follow up. Review of Systems All other systems reviewed and are negative. [facility] Progress note 08-31-2022 Note Date & Type Note Facility 08-31-2022 Note Cardiology Clinic No te Subjective Kolton Napier is a 77 y.o. year old female patient with hypertension, aortic valve stenosis, palpitations, and COPD seen in follow-up. Last seen by Dr. Ng in 06/2021. BP at home runs in the 120s/70-80s. She is doing well from a cardiac standpoint without concerns. She notes mild left ankle swelling, at times uncomfortable with ambulation. Patient Active Problem List Diagnosis Essential hypertension Intermittent palpitations Paroxysmal SVT (supraventricular tachycardia) (CMS/HCC) MARIE (dyspnea on exertion) Other emphysema (CMS/HCC) Mitral valve stenosis and aortic valve stenosis Peripheral venous insufficiency Family History Problem Relation Name Age of Onset Coronary artery disease Mother Coronary artery disease Brother Social History Tobacco Use Smoking status: Never Smokeless tobacco: Never Substance Use Topics Alcohol use: Not Currently Review of Systems Cardiovascular: Positive for leg swelling. Negative for chest pain, claudication, dyspnea on exertion, irregular heartbeat, near-syncope, orthopnea, palpitations, paroxysmal nocturnal dyspnea and syncope. All other systems reviewed and are negative. Objective Visit Vitals BP 126/81 (BP Location: Left arm, Patient Position: Sitting, BP Cuff Size: Adult) Pulse 83 Ht 1.626 m (5' 4 ) Wt 69.8 kg (153 lb 12.8 oz) SpO2 93% BMI 26.40 kg/m??? Smoking Status Never BSA 1.78 m??? Physical Exam General: Awake, alert, good spirits. NAD Pulm: Breath sounds clear to ascultation bilaterally with no wheeze, crackles or rhonchi Cards: Regular rate and rhythm, S1, S2. No S3 or S4 gallop. Murmur: none Abd: Soft, Nontender, physiologic bowel sounds are present Extr: Lower extremity edema: Left ankle trace. DP pulses: 2+ Skin: warm, dry, well perfused Neuro: A&Ox3, No gross deficits Allergies Allergies Allergen Reactions Cefdinir Penicillins GI intolerance Albuterol Sulfate Palpitations Medications Current Outpatient Medications: ALPRAZolam (Xanax) 0.5 mg tablet, alprazolam 0.5 mg tablet, Disp: , Rfl: benzonatate (Tessalon) 200 mg capsule, 1 capsule every 8 (eight) hours., Disp: , Rfl: dilTIAZem (Cardizem) 60 mg immediate release tablet, Take 1 tablet (60 mg) by mouth in the morning, at noon, and at bedtime., Disp: 270 tablet, Rfl: 3 FLUoxetine (PROzac) 20 mg tablet, in the morning., Disp: , Rfl: losartan-hydrochlorothiazide (Hyzaar) 100-25 mg tablet, in the morning., Disp: , Rfl: omeprazole (PriLOSEC) [address] capsule, Take 40 mg by mouth in the morning and 40 mg in the evening., Disp: , Rfl: potassium chloride CR (K-Tab) 20 mEq ER tablet, every 12 (twelve) hours., Disp: , Rfl: rosuvastatin (Crestor) 10 mg tablet, in the morning., Disp: , Rfl: Recent Labs 07/17/2022 CBC: WBC 7.5, hemoglobin 13.1, hematocrit 43, platelets 200 CMP: Sodium 139, potassium 3.8, chloride 102, CO2 29.5, BUN 19, creatinine 0.9, GFR 59% Lipid profile: Total cholesterol 134, HDL 57, triglyceride 87, LDL 59.6 Imaging and other tests ECHO 09/04/2020: EF 55-60%, mildly dilated LA, RV normal in size and function, mild Echocardiogram 03/15/2018: hyperdynamic left ventricular systolic function. Mild mitral regurgitation. Normal right ventricle. Assessment Diagnoses and all orders for this visit: Essential hypertension Mitral valve stenosis and aortic valve stenosis Intermittent palpitations MARIE (dyspnea on exertion) Chronic obstructive pulmonary disease, unspecified COPD type (CMS/HCC) Paroxysmal SVT (supraventricular tachycardia) (CMS/HCC) Plan 1. Hypertension -Controlled, continue losartan hydrochlorothiazide 100-25 mg and diltiazem 60 mg 3 times daily. 2. Hyperlipidemia -Controlled on Rosuvastatin 10 mg 3. SVT -Controlled, asymptomatic. Continue Diltiazem 60 mg TID. 4. VHD -Mild aortic stenosis and mild mitral regurgitation, stable. Follow as clinically indicated. Unilateral leg swelling likely related to injury. Follow up in about 1 year (around 08/31/2023). Leonidas Peters APRN-CHIEF [facility] Evaluation note Note Date & Type Note Facility Evaluation note Diagnosis Benign essential hypertension (CMS/HCC)- Primary Essential hypertension, benign LAUREL (generalized anxiety disorder) (CMS/HCC) Generalized anxiety disorder Lumbosacral spinal stenosis Seasonal allergic rhinitis due to pollen GERD without esophagitis Esophageal reflux Dyslipidemia (CMS/HCC) Other and unspecified hyperlipidemia Encounter for long-term (current) use of medications Encounter for long-term (current) use of other medications MDD (major depressive disorder), recurrent episode, mild (HCC) (CMS/HCC) documented in this encounter [facility] Summary Purpose Family History No Family History Records FoundNo Family History Records FoundNo Family History Records FoundNo Family History Records Found Advance Directives No Advanced Directives Records FoundNo Advanced Directives Records FoundNo Advanced Directives Records FoundNo Advanced Directives Records Found Additional Source Comments INFORMATION SOURCE (unrecogn ized section and content) DATE CREATED AUTHOR 05/20/2019 [facility] DATE CREATED AUTHOR AUTHOR'S ORGANIZ ATION 09/27/2022 [facility] DATE CREATED AUTHOR AUTHOR'S ORGANIZ ATION 2023 [facility] DATE CREATED AUTHOR AUTHOR'S ORGANIZ ATION 09/16/2023 [facility] dical Specialists EPIC Care Teams (unrecognized sec tion and content) Chemical Checker Relationship Specialty Start Date End Date Shaheed De La Torre MD [address] [place] [id number] PCP - General Family Medicine 08/19/23 Chemical Checker Relationship Specialty Start Date End Date Shaheed De La Torre MD [address] [place] [id number] PCP - General Family Medicine 08/19/23 Reason for Visit (unrecogniz ed section and content) Reason Comments Follow-up FOR RECORDS PERTAINING TO PATIENTS WHO ARE OR HAVE BEEN ENROLLED IN A CHEMICAL DEPENDENCY/SUBSTANCEABUSE PROGRAM, SOME INFORMATION MAY BE OMITTED. This clinical summary was aggregated from multiple sources. Caution should be exercised in using it in the provision of clinical care. This summary normalizes information from multiple sources, and as a consequence, information in this document may materially change the coding, format and clinical context of patient data. In addition, data may be omitted in some cases. CLINICAL DECISIONS SHOULD BE BASED ON THE PRIMARY CLINICAL RECORDS. [facility] [employer] provides no warranty or guarantee of the accuracy or completeness of information in this document.
== END 2023-09-27 12:43 | disposition home or self-care (01) ==
LOC: MAMMO 12:42
PROVIDERS: PCP Family Medicine; Visit Provider Family Medicine
DX: Z12.31 Encounter for screening mammogram for malignant neoplasm of breast (principal); Z80.3 Family history of malignant neoplasm of breast; Z80.0 Family history of malignant neoplasm of digestive organs
CPT/HCPCS: 77063; 77067

== ENCOUNTER 2023-10-14 09:25 | Emergency (ER) | payer MEDICARE, SELFPAY ==
[2023-10-14 09:29] VITALS: BP 168/98; PULSE 98; TEMP 36.6; O2SAT 97; BMI 25.7
--- NOTE | 2023-10-14 09:36 | XR_ITS ---
The [address] [address] Patient Name: KOLTON NAPIER MRN: [id number] date: 1945 Sex: F Assigned Patient Location: ER Current Patient Location: ER Accession/Order Number: [id number] Exam Date: 10/14/2023 09:55 Report Date: 10/14/2023 10:48 At the request of: YANIRA RODRIGUEZ Procedure: XR ribs RT min 3V w CXR1V EXAMINATION: XR ribs RT min 3V w CXR1V HISTORY: fall c/o right rib pain COMPARISON: XR chest 02/22/2018 FINDINGS: LUNGS: No significant pulmonary parenchymal abnormalities. PLEURA: No pneumothorax, effusion, or pleural thickening. MEDIASTINUM: No visible mass or adenopathy. CARDIAC: No cardiomegaly or cardiac silhouette abnormality. RIBS: No significant arthropathy or acute abnormality. OTHER: Negative. XR/XR ribs RT min 3V w CXR1V IMPRESSION: 1. No acute cardiopulmonary process. 2. No appreciable rib fracture. Electronically authenticated by: KARL KAUR Date: 10/14/2023 10:48
--- NOTE | 2023-10-14 09:59 | ED.FALL1 ---
HPI HPI - Fall General Chief Complaint: Fall Stated Complaint: ANXIOUS/FALL Time Seen by Provider: 10/14/23 09:59 Related Data Home Medications ?Medication ?Instructions ?Recorded ?Confirmed albuterol sulfate 90 mcg/actuation 2 inh inhalation Q6H PRN shortness 01/14/23 01/20/23 aerosol inhaler of breath or wheezing aspirin 81 mg tablet,delayed 81 mg PO DAILY 01/14/23 01/20/23 release (Adult Aspirin Regimen) cyclobenzaprine 10 mg tablet 10 mg PO Q8H 01/14/23 01/14/23 diltiazem HCl 30 mg tablet 30 mg PO Q8H 01/14/23 01/20/23 (Cardizem) fluoxetine 10 mg capsule 10 mg PO DAILY 01/14/23 01/20/23 fluticasone fur. 100 mcg-umeclid 1 inh inhalation DAILY 01/14/23 01/20/23 62.5 mcg-vilant 25 mcg inhalat.powder (Trelegy Ellipta) levalbuterol HCl 1.25 mg/3 mL 1.25 mg inhalation Q8H PRN 01/14/23 01/20/23 solution for nebulization shortness of breath or wheezing losartan 100 1 tab PO DAILY 01/14/23 01/20/23 mg-hydrochlorothiazide 25 mg tablet (Hyzaar) omeprazole 40 mg capsule,delayed 40 mg PO DAILY 01/14/23 01/20/23 release potassium chloride 10 mEq 10 meq PO DAILY 01/14/23 01/20/23 tablet,extended release (K-Tab) rosuvastatin 10 mg tablet (Crestor) 10 mg PO DAILY 01/14/23 01/20/23 Allergies Allergy/AdvReac Type Severity Reaction Status Date / Time Penicillins Allergy Unknown Verified 01/14/23 12:26 Opioid HPI Opioid Management Most Recent Pain and Opioid Data: No Data to Display [facility] Medical History (Updated 10/14/23 @ 10:59 by Michael Gaston MD) Arthritis ?M19.90 - Unspecified osteoarthritis, unspecified site (ICD-10) Anemia ?D64.9 - Anemia, unspecified (ICD-10) Asthma ?J45.909 - Unspecified asthma, uncomplicated (ICD-10) Diarrhea ?R19.7 - Diarrhea, unspecified (ICD-10) Constipation ?K59.00 - Constipation, unspecified (ICD-10) Tachycardia ?R00.0 - Tachycardia, unspecified (ICD-10) Palpitations ?R00.2 - Palpitations (ICD-10) Hypertension ?I10 - Essential (primary) hypertension (ICD-10) Colon polyp ?K63.5 - Polyp of colon (ICD-10) Surgical History (Updated 01/14/23 @ 12:32 by Merlene Thornton NP) History of bladder surgery ?Z98.890 - Other specified postprocedural states (ICD-10) History of colonoscopy ?Z98.890 - Other specified postprocedural states (ICD-10) History of esophagogastroduodenoscopy (EGD) ?Z98.890 - Other specified postprocedural states (ICD-10) History of hysterectomy ?Z90.710 - Acquired absence of both cervix and uterus (ICD-10) History of cholecystectomy ?Z90.49 - Acquired absence of other specified parts of digestive tract (ICD-10) History of appendectomy ?Z90.49 - Acquired absence of other specified parts of digestive tract (ICD-10) Family History (Updated 01/14/23 @ 12:32 by Merlene Thornton NP) Other Family history of Alzheimer's disease Family history of breast cancer Family history of gastric cancer Family history of heart disease Family history of stroke Social History (Updated 01/14/23 @ 12:26 by Merlene Thornton NP) Within the past year, how often did you have a drink containing alcohol: monthly or less Smoking status: Never smoker Non-prescribed substance use: denies use Highest level of school completed/degree received: high school graduate Exam Narrative Exam Narrative: Very pleasant female here with her . She is awake alert oriented. I performed balance and gait testing and she does fine. She does not show any neurological deficit. Examining the chest area there is no bruises contusions or hematomas. Aeration is good on both lung sounds. Her neck is soft and supple. There is no evidence of confusion. Her pulse oximetry and vital signs are normal. She was triaged to x-ray for imaging. She says she slept because she just slept she did not have loss of consciousness or lose her balance or have any vertigo symptoms. She typically will use a cane while in the house at her 's urging. Constitutional Vital Signs, click to edit/add: Last Vital Signs Temp 98 F 10/14/23 09:29 Pulse 98 H 10/14/23 09:29 Resp 20 10/14/23 09:29 BP 168/98 H 10/14/23 09:29 Pulse Ox 97 10/14/23 09:29 Course Vital Signs Vital signs: Vital Signs Temperature 98 F 10/14/23 09:29 Pulse Rate 98 H 10/14/23 09:29 Respiratory Rate 20 10/14/23 09:29 Blood Pressure 168/98 H 10/14/23 09:29 Pulse Oximetry 97 10/14/23 09:29 Temperature 98 F 10/14/23 09:29 Pulse Rate 98 H 10/14/23 09:29 Respiratory Rate 20 10/14/23 09:29 Blood Pressure 168/98 H 10/14/23 09:29 Pulse Oximetry 97 10/14/23 09:29 MDM - Fall MDM Narrative Medical decision making narrative: Patient with minimal findings on the examination with a fall several days ago and right chest wall pain. No evidence of abnormalities on her chest x-ray and no evidence of a rib fracture. She has minor discomfort. She will be treated symptomatically. I do not see where she is at high risk for fall based on neurological exam here. Discharge Plan Discharge Stand Alone Forms: Portal Instructions Chief Complaint: Fall Clinical Impression: Chest wall contusion Patient Disposition: Home, Self-Care Time of Disposition Decision: 10:59 Prescriptions / Home Meds: No Action albuterol sulfate 90 mcg/actuation HFA aerosol inhaler 2 inh inhalation Q6H PRN (Reason: shortness of breath or wheezing) aspirin [Adult Aspirin Regimen] 81 mg tablet,delayed release (DR/EC) 81 mg PO DAILY cyclobenzaprine 10 mg tablet 10 mg PO Q8H diltiazem HCl [Cardizem] 30 mg tablet 30 mg PO Q8H fluoxetine 10 mg capsule 10 mg PO DAILY Trelegy Ellipta 100-62.5-25 mcg blister with device 1 inh inhalation DAILY levalbuterol HCl 1.25 mg/3 mL solution for nebulization 1.25 mg inhalation Q8H PRN (Reason: shortness of breath or wheezing) losartan-hydrochlorothiazide [Hyzaar] 100-25 mg tablet 1 tab PO DAILY omeprazole 40 mg capsule,delayed release(DR/EC) 40 mg PO DAILY potassium chloride [K-Tab] 10 mEq tablet extended release 10 meq PO DAILY rosuvastatin [Crestor] 10 mg tablet 10 mg PO DAILY Print Language: Welsh Additional Instructions: May use Toradol for pain Referrals: Shaheed Crow MD [Primary Care Provider] - 1 week
== END 2023-10-14 11:07 | disposition home or self-care (01) ==
PROVIDERS: Emergency Provider Emergency Medicine Emergency Medical Services; PCP Family Medicine
DX: S20.211A Contusion of right front wall of thorax, initial encounter (principal); W19.XXXA Unspecified fall, initial encounter; Z79.82 Long term (current) use of aspirin; Z79.899 Other long term (current) drug therapy; Z98.890 Other specified postprocedural states; Z90.49 Acquired absence of other specified parts of digestive tract; Z90.710 Acquired absence of both cervix and uterus; I10 Essential (primary) hypertension; Z86.010 Personal history of colon polyps; M19.90 Unspecified osteoarthritis, unspecified site; J45.909 Unspecified asthma, uncomplicated
CPT/HCPCS: 71101; 99283

== ENCOUNTER 2024-02-28 08:02 | Observation (INO) | payer MEDICARE, SELFPAY ==
[2024-02-28] VITALS (34 sets, daily range): BP systolic 125–188; BP diastolic 77–117; PULSE 80–122; TEMP 36.6–36.7; O2SAT 92–99; BMI 26.3
--- NOTE | 2024-02-28 08:14 | XR_ITS ---
The [address] [address] Patient Name: KOLTON NAPIER MRN: [id number] date: 1945 Sex: F Assigned Patient Location: ER Current Patient Location: ER Accession/Order Number: [id number] Exam Date: 02/28/2024 08:38 Report Date: 02/28/2024 08:51 At the request of: GIORGI CASON Procedure: XR chest 1V EXAMINATION: XR chest 1V HISTORY: sob COMPARISON: No relevant comparison available. FINDINGS: LUNGS: Mild opacities obscuring the left lateral costophrenic angle. VASCULATURE: No increased pulmonary vasculature. PLEURA: No pneumothorax, effusion, or pleural thickening. CARDIAC: No cardiomegaly or cardiac silhouette abnormality. MEDIASTINUM: No visible mass or adenopathy. BONES: No fracture or visible bone lesion. OTHER: Negative. XR/XR chest 1V IMPRESSION: 1. Trace amount of lingular infiltrates. Electronically authenticated by: KARL KAUR Date: 02/28/2024 08:51
--- NOTE | 2024-02-28 08:14 | ECG_ITS ---
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
[2024-02-28] MEDS: IPRATROPIUM/ALBUTEROL SULFATE 3 ML AMPUL.NEB IH ×4 (08:25→22:14)
[2024-02-28] MEDS: METHYLPREDNISOLONE SOD SUCC PF 125 MG/2 ML VIAL IVP (08:28)
--- OUTSIDE RECORDS SUMMARY | 2024-02-28 08:32 | XMS_ITS | CCD ---
Author Organization [facility] Care Team Providers Care Gasket Supervisor Name Role Phone ADORE, DR MARIALUISA Anguiano [...] Unavailable WEST, DR MARIALUISA Anguiano Admvic Unavailable ZIEBER, DR NOAH Avery Consulting Unavailable [...] Unavailable NADERER, DR SHAHEED Thomas Admitting Unavailable WEST, DR MARIALUISA Anguiano Consulting Unavailable NADERER, DR SHAHEED Thomas Primary Care Unavailable MAPLEWOOD, DR MARIALUISA Anguiano Attending Unavailable MAPLEWOOD, DR MARIALUISA Anguiano Admitting Unavailable [place], DR MARIALUISA Anguiano Consulting Unavailable [facility] DR SHAHEED Thomas Primary Care Unavailable MAPLE[place], DR MARIALUISA Anguiano Attending Unavailable WEST, DR MARIALUISA Anguiano Admitting Unavailable WEST, DR MARIALUISA Anguiano Consulting Unavailable [facility] DR SHAHEED Thomas Primary Care Unavailable MAPLEWOOD, DR MARIALUISA Anguiano Attending Unavailable MAP[place], DR MARIALUISA Anguiano Admitting Unavailable Shaheed De La Torre MD Primary Care Provider EVE ADAMS Attending Unavailable LEONIDAS PETERS Attending Unavailable NADERER, SHAHEED Attending Unavailable NADERER, SHAHEED Attending Unavailable NADERER, SHAHEED Attending Unavailable NADERER, SHAHEED Attending Unavailable Allergies Allergy Classification Reported Allergen(s) Allergy Type Date of Onset Reaction(s) Facility (1 source) Albuterol Drug Allergy [facility] Repository (1 source) Penicillin Drug Allergy [facility]ository (3 sources) Albuterol Drug Allergy 9 Palpitations [facility] (3 sources) Cephalosporins (Antibiotic) Drug Allergy 3 Diarrhea, GI intolerance [facility] (4 sources) Penicillins; Translations: [PENICILLINS] Drug Allergy [address] [facility] (3 sources) cefdinir; Translations: [CEFDINIR] Drug Allergy 1 Diarrhea, GI intolerance [facility] (1 source) Albuterol; Translations: [ALBUTEROL SULFATE] Drug Allergy 9 [facility] Repository Medications Current Medications Medication Drug Class(es) Dates Sig (Normalized) Sig (Original) ALPRAZolam 0.5 mg oral tablet (3 sources) Benzodiazepine Start: 4 End: 4 take 0.5 tablet by mouth three times daily as needed for anxiety ALPRAZolam (Xanax) 0.5 MG tablet Indications: LAUREL (generalized anxiety disorder) ([facility]) Take 0.5 tablets (0.25 mg) by mouth [...] powder (3 sources) Polyene Antifungal nystatin (Mycostatin) 980498 UNIT/GM powder Apply 1 application topically in [...] 06-10-2023 Chronic Other aftercare (1 source) Other exterminator termite (current) drug therapy; Translations: [OTH GREEN PIPEFITTER CURRENT DRUG THERAPY] Onset: 3 Episodic Other aftercare (4 sources) Patient encounter status; Translations: [Other intermediate (current) drug therapy] Onset: 4 08-19-2023 Episodic [...] Range Facility Office Visiton 08-23-2023 Follow-up visit [id number] Pankaj Napier 1945 F Date Provider Department Center 08/23/2023 [facility] Family History Problem Relation Age of Onset Coronary artery disease Mother Coronary artery disease Brother Family Status - Relation Status Age at Mother Brother Level of Service:24817 OR OFFICE/OUTPATIENT ESTABLISHED LOW MDM 20 MIN Normal [facility] MG MAMM SCREEN 3D SHARLENE CADon 09-24-2022 MG MAMM SCREEN 3D SHARLENE CAD Patient: KOLTON NAPIER Exam Date: 09/24/2022 : 1945 Gender:F Ordering : DR SHAHEED DE LA TORRE . Admission #: [id number] Family : Order #: [id number] CLICK HERE TO VIEW EXAM RADIOLOGY REPORT PROCEDURE: MAMMOGRAM SCREENING 3D BILATERAL CAD COMPARISON: MG MAMM SCREEN 3D SHARLENE CAD, 09/18/2020. MG MAMM SCREEN SHARLENE W CAD, 09/13/2019. MG MAMM SCREEN SHARLENE W CAD, 09/19/2014. MG MAMM SCREEN 3D SHARLENE CAD, 09/23/2021. INDICATIONS: Screening mammography Calculator Name [...] stomach cancer at age 80. LOCATION: [facility] BREAST COMPOSITION: Scattered areas fibroglandular density. FINDINGS: [...] M.D. on 09/25/2022 at 07:08 Normal [facility] Office Visiton 08-31-2022 Follow-up visit [id number] Pankaj Napier 1945 F Date Provider Department Center 08/31/2022 [id number] PETERS [facility] Family History Problem Relation Age of Onset Coronary artery disease Mother Coronary artery disease Brother Family Status - Relation Status Age at Mother Brother Level of Service:87814 OR OFFICE/OUTPATIENT ESTABLISHED MOD MDM 30-39 MIN Reason for Visit and Comments: Follow-up [372292] - 1 yr follow up Normal [facility] CBC AUTO DIFFon 07-17-2022 BASO # 0.1 103/ul Normal 0.0-0.1 [facility] Comment on above: Performed By: #### C BC ####[facility] [address] [place] [id number]. Fidencio Walker Basophils/100 WBC (Bld) 0.8 % Normal 0.2-2.0 [facility] Comment on above: Performed By: #### C BC ####[facility] [address]eqwe[address] [place], [place] [address]Xa. Fidencio Walker EO # 0.4 103/ul Normal 0.0-0.7 [facility] Comment on above: Performed By: #### C BC ####[facility] [address] [place], [place] [address]Tw. Fidencio Walker Eosinophils/100 WBC (Bld) 4.7 % Normal 0.9-7.0 [facility] Comment on above: Performed By: #### C BC ####[facility] [address] [place] [address]Dr. Fidencio Walker Erythrocyte distribution width (RBC) [Ratio] 13.0 % Normal 11.0-15.0 [facility] Comment on above: Performed By: #### C BC ####[facility] [address] [place], [place] [address]Dr. Fidencio Walker Hematocrit (Bld) [Volume fraction] 43.0 % Normal 36.0-48.0 [facility] Comment on above: Performed By: #### C BC ####[facility] M[address] [place], [place] [address]Dr. Fidencio Walker Hemoglobin (Bld) [Mass/Vol] 13.1 g/dL Normal 12.0-16.0 [facility] Comment on above: Performed By: #### C BC ####[facility] [address] [place], [place] [address]Dr. Fidencio Walker IG # 0.02 10e3/ul Normal 0.00-0.03 [facility] Comment on above: Performed By: #### C BC ####[facility] S[address] [place], [place] [address]Dr. Fidencio Walker IG % 0.3 % Normal 0.0-0.5 [facility] Comment on above: Performed By: #### C BC ####[facility] Tb[address]fviz[address] [place], [place] [address]Dr. Fidencio Walker LYMPH # 2.2 103/ul Normal 1.2-3.8 [facility] Comment on above: Performed By: #### C BC ####[facility] Qszmty[address]wl[address] [place], [place] [address]Dr. Fidencio Walker Lymphocytes/100 WBC (Bld) 28.7 % Normal 20.5-60.0 [facility] Comment on above: Performed By: #### C BC ####[facility] J[address] [place], [place] [address]Dr. Fidencio Walker MANUAL DIFF REQ NO Normal [facility] Comment on above: Performed By: #### C BC ####[facility] [address] [place] [id number]. Fidencio Walker MCH (RBC) [Entitic mass] 30.9 pg Normal 26.7-34.0 [facility] Comment on above: Performed By: #### C BC ####[facility] [address] [place] [address]Dr. Fidencio Walker MCHC (RBC) [Mass/Vol] 30.5 g/dL Normal 29.9-35.2 [facility] Comment on above: Performed By: #### C BC ####[facility] [address] [place] [address]Dr. Fidencio Aaron MCV (RBC) [Entitic vol] 101.4 fL Critically high 81.0-99.0 [facility] Comment on above: Performed By: #### C BC ####[facility] E[address] [place], [place] [address]Dr. Fidencio Walker MONO # 0.5 103/ul Normal 0.3-0.8 [facility] Comment on above: Performed By: #### C BC ####[facility] [address] [place], [place] [address]Dr. Galileanickolas Walker Monocytes/100 WBC (Bld) 7.1 % Normal 1.7-12.0 [facility] Comment on above: Performed By: #### C BC ####[facility] [address] [place], [place] [address]Dr. Fidencio Aaron NEUT # 4.4 103/ul Normal 1.4-6.5 [facility] Comment on above: Performed By: #### C BC ####[facility] [address] [place], [place] [address]Dr. Galileanickolas Walker Neutrophils/100 WBC (Bld) 58.4 % Normal 43.0-75.0 [facility] Comment on above: Performed By: #### C BC ####[facility] [address] [place], [place] [address]Dr. Fidencio Walker Platelet mean volume (Bld) [Entitic vol] 10.8 fL Normal 9.5-13.5 [facility] Comment on above: Performed By: #### C BC ####[facility] [address] [place] [id number]. Fidencio Walker PLT 200 103/ul Normal 150-450 [facility] Comment on above: Performed By: #### C BC ####[facility] [address] [place], [place] [address]Pk. Fidencio Walker RBC 4.24 106/ul Normal 4.20-5.40 [facility] Comment on above: Performed By: #### C BC ####[facility] [address] [place] [id number]. Fidencio Walker WBC 7.5 103/ul Normal 4.0-11.0 [facility] Comment on above: Performed By: #### C BC ####[facility] [address] [place] [address]Dr. Fidencio Walker LIPID PROFILEon 07-17-2022 CHOL-HDL RATIO NORM SEE BELOW Normal [facility] Comment on above: Result Comment: 3.3 - 4.4 LOW RISK 4.4 - 7.1 AVERAGE RISK 7.1 - 11.0 MODERATE RISK >11.0 HIGH RISK Performed By: #### L IPID, LIVER, BMP ####[facility] [address] [place] [address]Dr. Fidencio Walker Cholesterol [Mass/Vol] 134 mg/dL Normal <=200 [facility] Comment on above: Performed By: #### L IPID, LIVER, BMP ####[facility] [address] [place] [address]Dr. Fidencio Walker Cholesterol in HDL [Mass/Vol] 57 mg/dL Normal 40-60 [facility] Comment on above: Performed By: #### L IPID, LIVER, BMP ####[facility] [address] [place] [address]Dr. Fidencio Walker Cholesterol in LDL [Mass/Vol] 59.6 mg/dL Normal [facility] Comment on above: Performed By: #### L IPID, LIVER, BMP ####[facility] [address]sw[address] [place] [address]Dr. Fidencio Walker Cholesterol.total/Ch olesterol in HDL [Mass ratio] 2.4 {ratio} Normal [facility] Comment on above: Performed By: #### L IPID, LIVER, BMP ####[facility] [address] [place] [id number]. Galileanickolas Aaron HDL NORMAL > or = 60 mg/dl - LO W CARDIOVASCULAR RISK <40 mg/dl - HIGH CARDIOVASCULAR RISK Normal [facility] Comment on above: Performed By: #### L IPID, LIVER, BMP ####[facility] [address] [place] [address]Dr. Fidencio Walker LDL CALC NORMAL SEE BELOW Normal [facility] Comment on above: Result Comment: <100 mg/dl OPTIMAL 100 - 129 mg/dl NEAR OR ABOVE OPTIMAL 130 - 159 mg/dl BORDERLINE HIGH 160 - 189 mg/dl HIGH >190 mg/dl VERY HIGH Performed By: #### L IPID, LIVER, BMP ####[facility] [address] [place] [address]Dr. Fidencio Walker Triglyceride [Mass/Vol] 87 mg/dL Normal <=150 [facility] Comment on above: Performed By: #### L IPID, LIVER, BMP ####[facility] [address] [place], [place] [address]Dr. Fidencio Walker VLDL CALC 17.4 mg/dL Normal [facility] Comment on above: Performed By: #### L IPID, LIVER, BMP ####[facility] [address] [place] [phone]. Galileanickolas Aaron LIVER PROFILEon 07-17-2022 Albumin [Mass/Vol] 3.7 g/dL Normal 3.4-5.[address] [facility] Comment on above: Performed By: #### L IPID, LIVER, BMP ####[facility] [address] [place] [address]Dr. Fidencio Walker Albumin/Globulin [Mass ratio] 1.0 {ratio} Normal [facility] Comment on above: Performed By: #### L IPID, LIVER, BMP ####[facility] [address] [place] [id number]. Fidencio Walker ALP [Catalytic activity/Vol] 58 U/L Normal 46-116 [facility] Comment on above: Performed By: #### L IPID, LIVER, BMP ####[facility] [address] [place] [address]Dr. Fidencio Walker ALT [Catalytic activity/Vol] 13 U/L Critically low 14-59 [facility] Comment on above: Performed By: #### L IPID, LIVER, BMP ####[facility] [address] [place] [address]Dr. Fidencio Walker AST [Catalytic activity/Vol] 18 U/L Normal 15-37 [facility] Comment on above: Performed By: #### L IPID, LIVER, BMP ####[facility] [address]mt[address] [place] [address]Dr. Fidencio Walker BILI, CONJUGATED 0.1 mg/dL Normal 0.0-0.2 [facility] Comment on above: Performed By: #### L IPID, LIVER, BMP ####[facility] [address] [place] [address]Dr. Fidencio Walker Bilirubin [Mass/Vol] 0.3 mg/dL Normal 0.2-1.0 [facility] Comment on above: Performed By: #### L IPID, LIVER, BMP ####[facility] [address] [place] [address]Dr. Fidencio Walker Globulin (S) [Mass/Vol] 3.6 g/dL Normal [facility] Comment on above: Performed By: #### L IPID, LIVER, BMP ####[facility] [address] [place] [address]Dr. Fidencio Walker Protein [Mass/Vol] 7.3 g/dL Normal 6.4-8.[address] [facility] Comment on above: Performed By: #### L IPID, LIVER, BMP ####[facility] [address] [place] [address]Dr. Fidencio Walker PROF CHEM 8 (BAS METB)on Anion gap [Moles/Vol] 11.3 mmol/L Normal [facility] Comment on above: Performed By: #### L IPID, LIVER, BMP ####[facility] [address] [place] [address]Dr. Fidencio Walker Calcium [Mass/Vol] 9.2 mg/dL Normal 8.5-10.1 [facility] Comment on above: Performed By: #### L IPID, LIVER, BMP ####[facility] [address] [place] [address]Dr. Fidencio Walker Chloride [Moles/Vol] 102 mmol/L Normal 98-107 [facility] Comment on above: Performed By: #### L IPID, LIVER, BMP ####[facility] [address] [place] [address]Dr. Fidencio Walker CO2 [Moles/Vol] 29.5 mmol/L Normal 21.0-32.0 [facility] Comment on above: Performed By: #### L IPID, LIVER, BMP ####[facility] [address] [place], [place] [address]Dr. Fidencio Walker Creatinine [Mass/Vol] 0.92 mg/dL Normal 0.55-1.02 [facility] Comment on above: Performed By: #### L IPID, LIVER, BMP ####[facility] [address] [place] [address]Dr. Fidencio Walker EGFR-AF RWANDAN >60 Normal >=60 [facility] Comment on above: Result Comment: Prev iously reported as: (blank) On 07/17/2022 13:28 By AJR Performed By: #### L IPID, LIVER, BMP ####[facility] [address] [place] [address]Dr. Fidencio Walker EGFR-NON AF RWANDAN 59 mL/min/1.73m2 Critically low >=60 [facility] Comment on above: Result Comment: Prev iously reported as: (blank) On 07/17/2022 13:28 By AJR Performed By: #### L IPID, LIVER, BMP ####[facility] [address] [place] [address]Dr. Fidencio Walker Glucose [Mass/Vol] 98 mg/dL Normal 74-[address] [facility] Comment on above: Performed By: #### L IPID, LIVER, BMP ####[facility] [address] [place] [address]Dr. Fidencio Walker Potassium [Moles/Vol] 3.8 mmol/L Normal 3.5-5.1 [facility] Comment on above: Performed By: #### L IPID, LIVER, BMP ####[facility] [address] [place] [address]Dr. Fidencio Walker Sodium [Moles/Vol] 139 mmol/L Normal 136-[address] [facility] Comment on above: Performed By: #### L IPID, LIVER, BMP ####[facility] [address] [place] [address]Dr. Fidencio Walker Urea nitrogen [Mass/Vol] 19.0 mg/dL Critically high 7.0-18.0 [facility] Comment on above: Performed By: #### L IPID, LIVER, BMP ####[facility] [address] [place] [address]Dr. Fidencio Walker Urea nitrogen/Creatinine [Mass ratio] 20.7 mg/mg Normal [facility] Comment on above: Performed By: #### L IPID, LIVER, BMP ####[facility] [address] [place] [address]Dr. Fidencio Walker VC INJ SCL BERTA DESIGN SUPERVISOR VEINSon 1 VC INJ SCL BERTA DESIGN SUPERVISOR VEINS Patient: KOLTON NAPIER Exam Date: 04/16/2022 : 1945 Gender:F Ordering : DR MARIALUISA AVITIA M.D. Admission #: [id number] Family : Order #: [id number] CLICK HERE TO VIEW EXAM RADIOLOGY REPORT PROCEDURE: VEIN CENTER INJECTION SCLEROSING SOLUTION MULTIPLE VEINS SAME COMPARISON: VC INJ SCL BERTA DESIGN SUPERVISOR VEINS, 04/02/2022. VC INJ SCL BERTA DESIGN SUPERVISOR VEINS, 03/24/2022. INDICATIONS: Pain co-occurrent and due [...] Avitia MD on 04/16/2022 at 14:[address] [facility] VC INJ SCL BERTA DESIGN SUPERVISOR VEINSon 0 04-02-2022 VC INJ SCL BERTA DESIGN SUPERVISOR VEINS Patient: KOLTON NAPIER Exam Date: 04/02/2022 : 1945 Gender:F Ordering : DR MARIALUISA AVITIA M.D. Admission #: [id number] Family : Order #: [id number] CLICK HERE TO VIEW EXAM RADIOLOGY REPORT PROCEDURE: VEIN CENTER INJECTION SCLEROSING SOLUTION MULTIPLE VEINS SAME COMPARISON: VC INJ SCL BERTA DESIGN SUPERVISOR VEINS, 03/24/2022. INDICATIONS: Pain co-occurrent and due [...] Vaughan M.D. on 04/02/2022 at 15:[address] [facility] VC INJ SCL BERTA DESIGN SUPERVISOR VEINSon 0 03-24-2022 VC INJ SCL BERTA DESIGN SUPERVISOR VEINS Patient: KOLTON NAPIER. Exam Date: 03/24/2022 : 1945 Gender:F Ordering : DR MARIALUISA AVITIA M.D. Admission #: [id number] Family : Order #: [id number] CLICK HERE TO VIEW EXAM RADIOLOGY REPORT PROCEDURE: VEIN CENTER INJECTION SCLEROSING SOLUTION MULTIPLE VEINS SAME COMPARISON: VC INJ SCL BERTA DESIGN SUPERVISOR VEINS, 03/19/2022. VC INJ SCL BERTA DESIGN SUPERVISOR VEINS, 03/10/2022. INDICATIONS: Pain co-occurrent and due [...] Marialuisa Avitia MD on 03/24/2022 at 13:41 [facility] VC INJ SCL BERTA DESIGN SUPERVISOR VEINSon 0 03-19-2022 VC INJ SCL BERTA DESIGN SUPERVISOR VEINS Patient: KOLTON NAPIER. Exam Date: 03/19/2022 : 1945 Gender:F Ordering : DR MARIALUISA AVITIA M.D. Admission #: [id number] Family : Order #: [id number] CLICK HERE TO VIEW EXAM RADIOLOGY REPORT PROCEDURE: VEIN CENTER INJECTION SCLEROSING SOLUTION MULTIPLE VEINS SAME COMPARISON: VC INJ SCL BERTA DESIGN SUPERVISOR VEINS, 03/10/2022. VC INJ SCL BERTA DESIGN SUPERVISOR VEINS, 03/03/2022. INDICATIONS: Pain co-occurrent and due [...] Avitia MD on 03/19/2022 at 15:[address] [facility] VC INJ SCL BERTA DESIGN SUPERVISOR VEINSon 0 03-10-2022 VC INJ SCL BERTA DESIGN SUPERVISOR VEINS Patient: KOLTON NAPIER. Exam Date: 03/10/2022 : 1945 Gender:F Ordering : DR MARIALUISA AVITIA M.D. Admission #: [id number] Family : Order #: [id number] CLICK HERE TO VIEW EXAM RADIOLOGY REPORT PROCEDURE: VEIN CENTER INJECTION SCLEROSING SOLUTION MULTIPLE VEINS SAME COMPARISON: VC INJ SCL BERTA DESIGN SUPERVISOR VEINS, 03/03/2022. INDICATIONS: Pain co-occurrent and due [...] Avitia MD on 03/10/2022 at 14:[address] [facility] VC INJ SCL BERTA DESIGN SUPERVISOR VEINSon 0 03-03-2022 VC INJ SCL BERTA DESIGN SUPERVISOR VEINS Patient: KOLTON NAPIER. Exam Date: 03/03/2022 : 1945 Gender:F Ordering : DR MARIALUISA AVITIA M.D. Admission #: [id number] Family : Order #: [id number] CLICK HERE TO VIEW EXAM RADIOLOGY REPORT [...] Avitia MD on 03/03/2022 at 15:[address] [facility] VC CONSULT FOLLOWUPon 2021 VC CONSULT FOLLOWUP Patient: CARTER NAPIER Exam Date: 02/25/2022 : 1945 Gender:F Ordering : DR MARIALUISA AVITIA M.D. Admission #: [id number] Family : Order #: [id number] CLICK HERE TO VIEW EXAM RADIOLOGY REPORT [...] Vaughan M.D. on 02/25/2022 at 15:[address] [facility] VC EXT VENOUS RT LIMITEDon 0 02-25-2022 VC EXT VENOUS RT LIMITED Patient: KOLTON NAPIER. Exam Date: 02/25/2022 : 1945 Gender:F Ordering : DR MARIALUISA AVITIA M.D. Admission #: [id number] Family : Order #: [id number] CLICK HERE TO VIEW EXAM RADIOLOGY REPORT [...] Vaughan M.D. on 02/25/2022 at 15:[address] [facility] VC INJ FOAM SCLERO W US MLTI on 02-19-2022 VC INJ FOAM SCLERO W US MLTI Patient: KOLTON NAPIER. Exam Date: 02/19/2022 : 1945 Gender:F Ordering : DR MARIALUISA AVITIA M.D. Admission #: [id number] Family : Order #: [id number] CLICK HERE TO VIEW EXAM RADIOLOGY REPORT [...] Vaughan M.D. on 02/20/2022 at 09:[address] [facility] VC CONSULT FOLLOWUPon 2021 VC CONSULT FOLLOWUP Patient: CARTER NAPIER GALILEA MarthaNeal Exam Date: 02/10/2022 : 1945 Gender:F Ordering : DR MARIALUISA AVITIA M.D. Admission #: [id number] Family : Order #: [id number] CLICK HERE TO VIEW EXAM RADIOLOGY REPORT [...] Avitia MD on 02/10/2022 at 14:[address] [facility] VC EXT VENOUS RT LIMITEDon 0 02-10-2022 VC EXT VENOUS RT LIMITED Patient: KOLTON NAPIER Exam Date: 02/10/2022 : 1945 Gender:F Ordering : DR MARIALUISA AVITIA M.D. Admission #: [id number] Family : Order #: [id number] CLICK HERE TO VIEW EXAM RADIOLOGY REPORT [...] Avitia MD on 02/10/2022 at 14:[address] [facility] VC ENDOVENOUS ABL 1ST V RTon 02-03-2022 VC ENDOVENOUS ABL 1ST V RT Patient: KOLTON NAPIER Exam Date: 02/03/2022 : 1945 Gender:F Ordering : DR MARIALUISA AVITIA M.D. Admission #: [id number] Family : Order #: [id number] CLICK HERE TO VIEW EXAM RADIOLOGY REPORT [...] Vaughan M.D. on 02/03/2022 at 14:[address] [facility] VC COMP CONSULTATIONon 01-22 VC COMP CONSULTATION Patient: DO HERI NAPIER Exam Date: 01/22/2022 : 1945 Gender:F Ordering : DR MARIALUISA AVITIA M.D. Admission #: [id number] Family : Order #: [id number] CLICK HERE TO VIEW EXAM RADIOLOGY REPORT [...] Avitia MD on 01/22/2022 at 14:[address] [facility] VC VENOUS REFLUX SHARLENE LMTon 0 01-22-2022 VC VENOUS REFLUX SHARLENE LMT Patient: KOLTON NAPIER Exam Date: 01/22/2022 : 1945 Gender:F Ordering : DR MARIALUISA AVITIA M.D. Admission #: [id number] Family : Order #: [id number] CLICK HERE TO VIEW EXAM RADIOLOGY REPORT [...] chronic thrombus visualized Compressibility: Normal Flow: Normal Glove Finisher: Dist/med calf 2.7mm with 0s. Mid/med calf [...] Flow: 1.2s of reflux in popliteal vein Glove Finisher: Dist/med calf 4.7mm with 0s reflux. Tech [...] Avitia MD on 01/22/2022 at 14:[address] [facility] OBSOLETEon 05-15-2019 OBSOLETE Refill (KAROL) KOLTON NAPIER ([id number]) 1945 F Date Time Provider Department 05/15/19 JAMES JOHNSON During your visit today, we recorded the following information about you: Maribel Osorio [employer] Programs Director II 05/16/2019 4:42 PM Signed Call from pharmacy requesting refill. Pending Prescriptions Disp Refills DILTIAZEM 30 MG TABLET 270 tablet 1 Sig: TAKE ONE TABLET BY MOUTH THREE TIMES A DAY FLORENCIA: Yes Patient last seen 05/30/18 Maribel Osorio Executive Wellness Programs Director II Allergies As of Date: 05/15/2019 Noted [...] Status:Closed by JAMES JOHNSON MD on 05/20/19 [facility] CNOVon 05-30-2018 CNOV Office Visit (CARDMN ) NAPIERKOLTON ([id number]) 1945 F Date Time Provider Department 05/30/18 2:00 PM JAMES JOHNSON During your visit today, we recorded the following information about you: Pulse Blood pressure Weight Height 114/minute 140/78 73.9 kg 1.626 m James Johnson MD, MD 05/30/2018 5:53 PM Signed [facility] [place] Demond Carpenter Department of Cardiovascular Medicine SECTION OF CARDIAC PACING and ELECTROPHYSIOLOGY OUTPATIENT VISIT DATE May 30, 2018 OUTPATIENT VISIT TYPE NEW PRIMARY CARE PHYSICIAN: Shaheed De La Torre MD ([facility]) [address] [place] [address] IMPRESSION/PLAN: The patient is very pleasant female [...] ECG today: Sinus tachycardia at 114 bpm. OR 154 ms, QRS 86 ms, QTC 460 ms. FOLLOW UP: Return in about 4 months (around 09/27/2018). This note was created using computerized assistant professor of education software and may therefore include some assistant professor of education errors including errors in gender and inappropriate words or phrases. I reviewed old records, obtained relevant HPI and PMH from the pt, examined the patient and created the above report. James Johnson MD May 30, 2018 Note to: Shaheed De La Torre MD ([facility]) [address] [place] [address] James Johnson MD, 05/30/2018 3:19 PM Signed If symptoms not improving in 7-10 days on low dose diltiazem, call. Referring Provider: REFERRAL, NO(HIST) [[id number]] Allergies As of Date: 05/30/2018 Noted Allergy [...] by JAMES JOHNSON MD on 05/30/18 Normal [facility] ECG COMPLETE W INTERPRETATIO Non 05-30-2018 ECG COMPLETE W INTERPRETATION NAME : KOLTON NAPIER PID : [id number] : 1945 Gender : Female Race : ORD : [id number] Procedure Date : May 30 2018 13:36:13 Edit Date : May 31 2018 13:51:33 Diagnosis:SINUS TACHYCARDIA WITH PREMATURE ATRIAL COMPLEXES OTHERWISE NORMAL ECG Confirmed by MD YAN TAMANNA ([id number]) on 05/31/2018 1:51:26 PM Ventricular Rate : 114 BPM Atrial Rate : 114 BPM P-R Interval : 154 ms QRS Duration : 86 ms Q-T Interval : 334 ms QTC Calculation(Bezet) : 460 ms P [place] : 37 degrees R [place] : 30 degrees T [place] : 46 degrees Test Reason : Location : 314 : [facility] Overread By : MD YAN TAMANNA Edited By : MD YAN TAMANNA Referred By : JAMES JOHNSON Acquired by : BHUMIKA SANCHEZ [facility] PROGRESSon 05-30-2018 PROGRESS HNO ID: [id number] Author: James Johnson MD Service: (none) Author Type: Physician Type: Progress Notes Filed: 05/30/2018 5:53 PM Note Text: Heart and Vascular [place] [facility]ond [facility] Department of Cardiovascular Medicine SECTION OF CARDIAC PACING and ELECTROPHYSIOLOGY OUTPATIENT VISIT DATE May 30, 2018 OUTPATIENT VISIT TYPE NEW PRIMARY CARE PHYSICIAN: Shaheed De La Torre MD ([facility]) [address] [place] [address] IMPRESSION/PLAN: The patient is very pleasant female [...] ECG today: Sinus tachycardia at 114 bpm. OR 154 ms, QRS 86 ms, QTC 460 ms. FOLLOW UP: Return in about 4 months (around 09/27/2018). This note was created using computerized assistant professor of education software and may therefore include some assistant professor of education errors including errors in gender and inappropriate words or phrases. I reviewed old records, obtained relevant HPI and PMH from the pt, examined the patient and created the above report. James Johnson MD May 30, 2018 Note to: Shaheed De La Torre MD ([facility]) [address] [place] [address] Normal [facility] Vital Signs Date Time Vital Sign Value Performing Clinician Faci lity 08-19-2023 14:36-0500 Body height 162.6 cm Shaheed De La Torre MD Work Phone: [facility] 08-19-2023 14:36-0500 Body mass index (BMI) [Ratio] 26.09 kg/m2 Shaheed De La Torre MD Work Phone: [facility] 08-19-2023 14:36-0500 Body temperature 98.1 [degF] Shaheed De La Torre MD Work Phone: [facility] 08-19-2023 14:36-0500 Body weight 68.95 kg Shaheed De La Torre MD Work Phone: [facility] 08-19-2023 14:36-0500 Diastolic blood pressure 70 mm[Hg] Shaheed De La Torre MD Work Phone: [facility] 08-19-2023 14:36-0500 Heart rate 71 /min Shaheed De La Torre MD Work Phone: [facility] 08-19-2023 14:36-0500 SaO2% (BldA) [Mass fraction] 98 % Shaheed De La Torre MD Work Phone: [facility] 08-19-2023 14:36-0500 Systolic blood pressure 108 mm[Hg] Shaheed De La Torre MD Work Phone: [facility] Healthcare Encounters Encounter Date Encounter Type Care Provider Facility Start: 02-17-2024 End: 02-17-2024 ambulatory SHAHEED DE LA TORRE Not Available Start: 09-15-2023 End: 09-15-2023 ambulatory SHAHEED DE LA TORRE Not Available Start: 08-23-2023 End: 08-23-2023 ambulatory [facility] Start: 08-19-2023 End: 08-19-2023 Office outpatient visit 25 minutes Shaheed De La Torre MD Work Phone: [facility] Comment on above: Benign essential hyp ertension (CMS/HCC) (Primary Dx); LAUREL (generalized anxiety disorder) (CMS/HCC); Lumbosacral spinal stenosis; Seasonal allergic rhinitis due to pollen; GERD without esophagitis; Dyslipidemia (CMS/HCC); Encounter for long-term (current) use of medications; MDD (major depressive disorder), recurrent episode, mild (HCC) (CMS/HCC) Start: 08-19-2023 End: 08-19-2023 ambulatory SHAHEED DE LA TORRE Not Available Start: 08-19-2023 Bamboo flowsheet Shaheed De La Torre MD Work Phone: [facility] Start: 08-19-2023 Bamboo flowsheet Shaheed De La Torre MD Work Phone: [facility] Start: 06-10-2023 End: 06-10-2023 ambulatory SHAHEED DE LA TORRE Not Available Start: 09-24-2022 End: 09-25-[address] NOAH VAUGHAN Facility: Start: 08-31-2022 End: 08-31-2022 ambulatory [facility] Start: 07-17-2022 End: 07-18-[address] [...] Start: 02-25-2022 End: 02-26-[address] MARIALUISA AVITIA Facility:[facility]1 Start: 02-19-2022 End: 02-20-[address] MARIALUISA AVITIA Facility:[facility] Start: 02-10-2022 End: 02-11-[address] MARIALUISA AVITIA Facility:[facility] Start: 02-03-2022 End: 02-04-[address] MARIALUISA AVITIA Facility:[facility] Start: 01-22-2022 End: 01-23-[address] MARIALUISA AVITIA Facility:[facility] Plan of Treatment Date Care Activity Detail Author Start: 08-19-2023 End: 08-19-2023 Patient encounter procedure 08/19/2023 2:30 PM EST Office Visit [facility] [address] [place] [address] Shaheed De La Torre MD [address] [place] [address] Arrived [facility] Comment on above: Arrived Start: 08-19-2023 End: 08-19-2024 Basic metabolic 1998 panel - Serum or Plasma Basic metabolic panel Lab Routine Benign essential hypertension (CMS/HCC) Expected: 08/19/2023 (Approximate), Expires: 08/19/2024 [facility] Work Phone: Comment on above: Expected: 08/19/2023 (Approximate), Expires: 08/19/2024 Start: 08-19-2023 End: 08-19-2024 CBC W Auto Differential panel - Blood CBC and differential Lab Routine Encounter for long-term (current) use of medications Expected: 08/19/2023 (Approximate), Expires: 08/19/2024 [facility] Comment on above: Expected: 08/19/2023 (Approximate), Expires: 08/19/2024 Start: 08-19-2023 End: 08-19-2024 Hepatic function 2000 panel - Serum or Plasma Hepatic function panel Lab Routine Encounter for long-term (current) use of medications Expected: 08/19/2023 (Approximate), Expires: 08/19/2024 [facility] Comment on above: Expected: 08/19/2023 (Approximate), Expires: 08/19/2024 Start: 08-19-2023 End: 08-19-2024 Lipid 1996 panel - Serum or Plasma Lipid panel Lab Routine Dyslipidemia (CMS/HCC) Expected: 08/19/2023 (Approximate), Expires: 08/19/2024 [facility] Comment on above: Expected: 08/19/2023 (Approximate), Expires: 08/19/2024 Start: 1945 Medicare Annual Wellness (AWV) Medicare Annual Wellness (AWV) [facility] Healthcare Payers Date Payer Category Payer Medicare AETNA MEDICARE A DVANTAGE AETNA MEDICARE REPLACEMENT [id number] 2022-Present [address] [place] [address] [id number] 1959 Medicare [id number] 1945 Unknown [id number] 1945 Unknown [id number] [id number]3 1945 Unknown [id number] 2.16.840.1.941133.3.579.2.593 1945 Unknown [id number] 2.16.840.1.695151.3.579.2.593 1945 Unknown [id number] 2.16.840.1.264436.3.579.2.593 1945 Unknown [id number] 2.16.840.1.904915.3.579.2.593 1945 Unknown [id number] 2.16.840.1.568538.3.579.2.593 1945 Unknown [id number] 2.16.840.1.011789.3.579.2.593 1945 Unknown [id number] 2.16.840.1.720947.3.579.2.593 1945 Unknown [id number] 2.16.840.1.329563.3.579.2.593 1945 Unknown [id number] 2.16.840.1.469249.3.579.2.593 1945 Unknown [id number] 2.16.840.1.777777.3.579.2.593 1945 Unknown [id number] 2.16.840.1.849747.3.579.2.593 1945 Unknown [id number] 2.16.840.1.999827.3.579.2.1259 1945 Unknown [id number] 2.16.840.1.603713.3.579.2.1259 1945 Unknown [id number] 2.16.840.1.671755.3.579.2.1259 1945 Unknown [id number] 2.16.840.1.456835.3.579.2.1259 Social History Date Type Detail Facility Start: 06-10-2023 End: 08-19-2023 Tobacco smoking status NJIS Never smoked tobacco [facility] Start: 06-10-2023 End: 08-19-2023 Tobacco use and exposure Smokeless tobacco non-user [facility] Start: 06-10-2023 End: 08-19-2023 Alcohol intake Ex-drinker (finding) [facility] Start: 06-10-2023 End: 08-19-2023 History of Social function [facility] Start: 06-10-2023 End: 08-19-2023 Tobacco use panel [facility] Start: 06-10-2023 Alcohol [facility] Start: 1945 Sex Assigned At Not on file [facility] NEGATED: Highlighted rowStart: NINF History of tobacco use Passive smoker [facility] Healthcare Progress note 08-23-2023 Note Date & Type Note Facility 08-23-[address] [facility] Cardiology Clinic Note Chief Complaint: Patient here [...] history of COPD (chronic obstructive pulmonary disease) ([facility]), Heart murmur, Heart valve disease, Hypertension, Palpitations, [...] her echocardiogram Eve Adams MD, MPH, FACC, [facility], [facility] Interventional Cardiology Pager Email: [email or web address] History of Present illness Narrative 08-19-2023 Shaheed [...] Hepatic function panel documented in this encounter [facility] Progress note 08-31-2022 Note Date & Type Note Facility 08-31-2022 Note Patient is here toda y for 1yr follow up. Review of Systems All other systems reviewed and are negative. [facility] Progress note 08-31-2022 Note Date & [...] about 1 year (around 08/31/2023). Leonidas Peters APRN-LEASE OUT WORKER [facility] Cardiovascular Medicine [facility] Evaluation note Note Date & Type [...] section and content) DATE CREATED AUTHOR 05/20/2019 [facility] DATE CREATED AUTHOR AUTHOR'S ORGANIZ ATION 09/27/2022 [facility] DATE CREATED AUTHOR AUTHOR'S ORGANIZ ATION 2023 [facility] DATE CREATED AUTHOR AUTHOR'S ORGANIZ ATION 02/19/2024 [facility] EPIC Care Teams (unrecognized sec tion and content) Gasket Supervisor Relationship Specialty Start Date End Date Shaheed De La Torre MD [address] [place] [id number] PCP - General Family Medicine 08/19/23 Gasket Supervisor Relationship Specialty Start Date End Date Shaheed De La Torre MD [address] [place] [id number] PCP - General Family Medicine 08/19/23 Reason [...] BE BASED ON THE PRIMARY CLINICAL RECORDS. [facility] [employer] [facility]. provides no warranty or guarantee of the accuracy or completeness of information in this document.
--- NOTE | 2024-02-28 08:35 | ED_ITS ---
HPI - SOB/Dyspnea General Chief Complaint: Shortness of Breath/Dyspnea Stated Complaint: SOB, COUGH Time Seen by Provider: 02/28/24 08:09 Source: patient Mode of arrival: Wheelchair History of Present Illness HPI Narrative: The patient is coming to us in respiratory distress after she has been having 3 to 4 days history of upper respiratory tract symptoms of runny nose and cough, the patient have history of asthma but she mentioned that the breathing treatment not helping she was not able to provide us with a lot of history upon arrival because she was speaking only in one-word sentences, she did had a wet cough she denies any chest pain at any time She have shortness of breath at rest Related Data Home Medications ?Medication ?Instructions ?Recorded ?Confirmed albuterol sulfate 90 mcg/actuation 2 inh inhalation Q6H PRN shortness 01/14/23 02/28/24 aerosol inhaler of breath or wheezing cyclobenzaprine 10 mg tablet 10 mg PO Q8H 01/14/23 02/28/24 diltiazem HCl 30 mg tablet 30 mg PO Q8H 01/14/23 01/20/23 (Cardizem) fluoxetine 10 mg capsule 10 mg PO DAILY 01/14/23 02/28/24 fluticasone fur. 100 mcg-umeclid 1 inh inhalation DAILY 01/14/23 02/28/24 62.5 mcg-vilant 25 mcg inhalat.powder (Trelegy Ellipta) levalbuterol HCl 1.25 mg/3 mL 1.25 mg inhalation Q8H PRN 01/14/23 01/20/23 solution for nebulization shortness of breath or wheezing losartan 100 1 tab PO DAILY 01/14/23 02/28/24 mg-hydrochlorothiazide 25 mg tablet (Hyzaar) omeprazole 40 mg capsule,delayed 40 mg PO DAILY 01/14/23 02/28/24 release potassium chloride 10 mEq 10 meq PO DAILY 01/14/23 02/28/24 tablet,extended release (K-Tab) rosuvastatin 10 mg tablet (Crestor) 10 mg PO DAILY 01/14/23 02/28/24 alprazolam 0.5 mg tablet 0.25 mg PO TID PRN anxiety 02/28/24 02/28/24 benzonatate 200 mg capsule 200 mg PO TID 02/28/24 02/28/24 diltiazem HCl 60 mg tablet 60 mg PO TID 02/28/24 02/28/24 loratadine 10 mg tablet (Loradamed) 10 mg PO DAILY 02/28/24 02/28/24 potassium chloride 20 mEq 20 meq PO BID 02/28/24 02/28/24 tablet,extended release Allergies Allergy/AdvReac Type Severity Reaction Status Date / Time Penicillins Allergy Unknown Verified 01/14/23 12:26 Review of Systems ROS Status of ROS 10 or more systems reviewed and unremark able except as noted in history and below [facility] Medical History (Updated 02/28/24 @ 09:32 by Tameka Pope MD) Arthritis ?M19.90 - Unspecified osteoarthritis, unspecified site (ICD-10) Anemia ?D64.9 - Anemia, unspecified (ICD-10) Asthma ?J45.909 - Unspecified asthma, uncomplicated (ICD-10) Diarrhea ?R19.7 - Diarrhea, unspecified (ICD-10) Constipation ?K59.00 - Constipation, unspecified (ICD-10) Tachycardia ?R00.0 - Tachycardia, unspecified (ICD-10) Palpitations ?R00.2 - Palpitations (ICD-10) Hypertension ?I10 - Essential (primary) hypertension (ICD-10) Colon polyp ?K63.5 - Polyp of colon (ICD-10) Surgical History (Updated 01/14/23 @ 12:32 by Merlene Thornton NP) History of bladder surgery ?Z98.890 - Other specified postprocedural states (ICD-10) History of colonoscopy ?Z98.890 - Other specified postprocedural states (ICD-10) History of esophagogastroduodenoscopy (EGD) ?Z98.890 - Other specified postprocedural states (ICD-10) History of hysterectomy ?Z90.710 - Acquired absence of both cervix and uterus (ICD-10) History of cholecystectomy ?Z90.49 - Acquired absence of other specified parts of digestive tract (ICD- 10) History of appendectomy ?Z90.49 - Acquired absence of other specified parts of digestive tract (ICD- 10) Family History (Updated 01/14/23 @ 12:32 by Merlene Thornton NP) Other Family history of Alzheimer's disease Family history of breast cancer Family history of gastric cancer Family history of heart disease Family history of stroke Social History (Updated 01/14/23 @ 12:26 by Merlene Thornton NP) Within the past year, how often did you have a drink containing alcohol: monthly or less Smoking status: Never smoker Non-prescribed substance use: denies use Highest level of school completed/degree received: high school graduate Exam Narrative Exam Narrative: Nurses notes and vital signs reviewed and patient is not hypoxic. General: Well-appearing and in no apparent distress. Skin: Warm, dry, no pallor noted. No rash. Head: Normocephalic, atraumatic. Neck: Supple, non-tender. Eye: Pupils are equal, round and EOMI. No scleral icterus. Ears, Nose, Mouth, and Throat: TM are clear, no nasal mucosal hypertrophy. Oral mucosa is moist, no posterior oropharynx erythema, uvula is mid-line Cardiovascular: Regular Rate and Rhythm without murmur, gallop or rub. Respiratory: Using accessory muscles leaning forward speaking in one-word sentences Lungs are clear bilateral expiratory lung wheezes in both lung da silva Chest Wall: no tenderness Back: No midline thoracic or lumbar vertebral tenderness. No CVA tenderness Musculoskeletal: normal ROM, no calf or popliteal tenderness, no lower extremity edema/swelling GI: Abdomen is soft, non-distended. Normal bowel sounds. No masses appreciated. No tenderness to palpation. No rebound, guarding, or rigidity noted. Neurological: A&O x4. No cranial nerve dysfunction observed. No truncal ataxia. Moves all extremities. Sensation intact. Psychiatric: Cooperative and interactive. Normal mood and affect. Constitutional Vital Signs, click to edit/add: Last Vital Signs Temp 97.9 F 02/28/24 08:05 Pulse 103 H 02/28/24 09:10 Resp 21 H 02/28/24 09:10 BP 188/105 H 02/28/24 08:17 Pulse Ox 93 L 02/28/24 09:10 O2 Del Method Room Air 02/28/24 08:05 Course Vital Signs Vital signs: Vital Signs Temperature 97.9 F 02/28/24 08:05 Pulse Rate 105 H 02/28/24 08:05 Respiratory Rate 28 H 02/28/24 08:05 Blood Pressure 185/109 H 02/28/24 08:05 Pulse Oximetry 94 L 02/28/24 08:05 Oxygen Delivery Method Room Air 02/28/24 08:05 Temperature 97.9 F 02/28/24 08:05 Pulse Rate 103 H 02/28/24 09:10 Respiratory Rate 21 H 02/28/24 09:10 Blood Pressure 188/105 H 02/28/24 08:17 Pulse Oximetry 93 L 02/28/24 09:10 Oxygen Delivery Method Room Air 02/28/24 08:05 MDM - SOB/Dyspnea MDM Narrative Medical decision making narrative: Upon arrival the patient EKG was showing sinus rhythm with a heart rate of [address] elevation or depression The patient CBC and chemistry showed no acute significant pathology with a troponin was negative as well as lactic acid But the patient x-ray shows possible lingular infiltrate and the patient was provided initially with magnesium IV as well as Solu-Medrol and breathing treatment Another second breathing treatment will be provided the patient feeling better although she still have extensive wheezes COVID test is negative Patient was started on azithromycin as well as ceftriaxone for possible pneumonia Patient case was discussed with Dr. Laughlin and she agreed with above-mentioned plan Lab Data Labs: Lab Results 02/28/24 02/28/24 Range/Units 08:15 08:24 WBC 9.7 (4.0-11.0) 10^3/uL RBC 4.20 (4.20-5.40) 10^6/uL Hgb 13.4 (12.0-16.0) g/dL Hct 39.7 (36.0-48.0) % MCV 94.5 (81.0-99.0) fL MCH 31.9 (26.7-34.0) pg MCHC 33.8 (29.9-35.2) g/dL RDW 11.9 (11.0-15.0) % Plt Count 247 (150-450) 10^3/uL MPV 10.1 (9.5-13.5) fL Neut % (Auto) 66.8 (43.0-75.0) % Lymph % (Auto) 17.2 L (20.5-60.0) % Major % (Auto) 9.0 (1.7-12.0) % Eos % (Auto) 5.8 (0.9-7.0) % Baso % (Auto) 0.9 (0.2-2.0) % Neut # (Auto) 6.5 (1.4-6.5) 10^3/uL Lymph # (Auto) 1.7 (1.2-3.8) 10^3/uL Major # (Auto) 0.9 H (0.3-0.8) 10^3/uL Eos # (Auto) 0.6 (0.0-0.7) 10^3/uL Baso # (Auto) 0.1 (0.0-0.1) 10^3/uL Abs Immat Gran (auto) 0.03 (0.00-0.03) 10^3/uL Imm/Tot Granulo (auto) 0.3 (0.0-0.5) % PT 10.7 (9.0-11.6) sec INR 1.01 Sodium 134 L (136-145) mmol/L Potassium 3.8 (3.5-5.1) mmol/L Chloride 98 (98-107) mmol/L Carbon Dioxide 26.8 (21.0-32.0) mmol/L Anion Gap 13.0 BUN 11.0 (7.0-18.0) mg/dL Creatinine 0.72 (0.55-1.02) mg/dL Est GFR ( Amer) >60 (>=60) Est GFR (Non-Af Amer) >60 (>=60) BUN/Creatinine Ratio 15.3 Glucose 99 (74-106) mg/dL Lactate 0.8 (0.4-2.0) mmol/L Calcium 9.2 (8.5-10.1) mg/dL Magnesium 1.8 (1.8-2.4) mg/dL Total Bilirubin 0.6 (0.2-1.0) mg/dL AST 19 (15-37) U/L ALT 23 (14-59) U/L Alkaline Phosphatase 97 (46-116) U/L Troponin I High Sens 4.6 (4.0-51.3) pg/mL Total Protein 7.7 (6.4-8.2) g/dL Albumin 4.0 (3.4-5.0) g/dL Globulin 3.7 g/dL Albumin/Globulin Ratio 1.1 SARS-CoV-2 Ag (CV2AG) Negative (NEGATIVE) Discharge Plan Discharge Chief Complaint: Shortness of Breath/Dyspnea Clinical Impression: Pneumonia Qualifiers: Pneumonia type: due to unspecified organism Laterality: left Lung location: unspecified part of lung Qualified Code(s): J18.9 - Pneumonia, unspecified organism Asthma exacerbation Qualifiers: Asthma severity: moderate Asthma persistence: persistent Qualified Code(s): J45.41 - Moderate persistent asthma with (acute) exacerbation Patient Disposition: Admitted As Inpatient Time of Disposition Decision: 09:32
[2024-02-28 08:36] LABS: Basophils Absolute Auto 0.1 10^3/uL (0.0-0.1); Basophils Percent Auto 0.9 % (0.2-2.0); Eosinophils Absolute Auto 0.6 10^3/uL (0.0-0.7); Eosinophils Percent Auto 5.8 % (0.9-7.0); Hematocrit 39.7 % (36.0-48.0); Hemoglobin 13.4 g/dL (12.0-16.0); Immature Granulocytes Abs Auto 0.03 10^3/uL (0.00-0.03); Immature Granulocytes Pct Auto 0.3 % (0.0-0.5); Lymphocytes Absolute Auto 1.7 10^3/uL (1.2-3.8); Lymphocytes Percent Auto 17.2 % (20.5-60.0); Mean Corpuscular HGB Conc 33.8 g/dL (29.9-35.2); Mean Corpuscular Hemoglobin 31.9 pg (26.7-34.0); Mean Corpuscular Volume 94.5 fL (81.0-99.0); Mean Platelet Volume 10.1 fL (9.5-13.5); Monocytes Absolute Auto 0.9 10^3/uL (0.3-0.8); Neutrophils Absolute Auto 6.5 10^3/uL (1.4-6.5); Neutrophils Percent Auto 66.8 % (43.0-75.0); Platelet Count 247 10^3/uL (150-450); Red Cell Distribution Width 11.9 % (11.0-15.0); White Blood Count 9.7 10^3/uL (4.0-11.0)
[2024-02-28 08:40] LABS: INR 1.01; Prothrombin Time 10.7 sec (9.0-11.6)
[2024-02-28 08:59] LABS: Lactate/Lactic Acid 0.8 mmol/L (0.4-2.0)
[2024-02-28 09:06] LABS: Alanine Aminotransferase 23 U/L (14-59); Albumin Globulin Ratio 1.1; Alkaline Phosphatase 97 U/L (46-116); Aspartate Amino Transferase 19 U/L (15-37); BUN Creatinine Ratio 15.3; Bilirubin Total 0.6 mg/dL (0.2-1.0); Calcium 9.2 mg/dL (8.5-10.1); Carbon Dioxide 26.8 mmol/L (21.0-32.0); Chloride 98 mmol/L (98-107); Estimated GFR (African America >60 (>=60); Estimated GFR (Non-African Ame >60 (>=60); Globulin 3.7 g/dL; Glucose 99 mg/dL (74-106); Magnesium 1.8 mg/dL (1.8-2.4); Potassium 3.8 mmol/L (3.5-5.1); Sodium 134 mmol/L (136-145); Total Protein 7.7 g/dL (6.4-8.2); Troponin I High Sensitivity 4.6 pg/mL (4.0-51.3)
[2024-02-28] MEDS: MAGNESIUM SULFATE IN WATER 2 GM/50 ML PREMIX IV (09:09)
[2024-02-28 09:20] LABS: Internal Control Within Normal Limits; SARS-CoV-2 Ag NEGATIVE (NEGATIVE)
[2024-02-28] MEDS: CEFTRIAXONE 1,000 MG in 0.9 % SODIUM CHLORIDE 50 ML 100 MG IV (09:43)
[2024-02-28] MEDS: AZITHROMYCIN 500 MG in 0.9 % SODIUM CHLORIDE 250 ML 250 MG IV (10:14)
--- NOTE | 2024-02-28 10:27 | PM.HP ---
HPI H&P: HPI History of Present Illness Chief complaint: SOB, COUGH, ASTHMA EXACERBATION, PNEUMONIA Narrative: Patient is a 78 year old female with past medical history of allergic asthma, GERD, seasonal allergies, HTN, anxiety who presents today with shortness of breath and wheezing. She has tried nebulizer treatments 4-6 without relief so she came to the ER. She sees Dr. Mckinnon for her Asthma. Just seen him about a month ago. She is compliant with her medications. She also follows with [facility] cardiology for a heart murmur . Dr. Crow is her pcp. She denies any fevers or chills, and recent illnesses. Just says when it gets got and the pollen is floating is when her asthma is the worst. ER findings: WBC's 9.7. lactate 0.8, Chest X-ray: lingular infiltrates, negative Covid test; she was given solumedrol 125mg x 1, Azith and Rocephin and magensium 2 grams. 2 duoneb treatments. Opioid HPI Opioid Management Most Recent Pain and Opioid Data: Last Pain Assessment 02/28/24 13:43 Last ORT Total Score 0 02/28/24 10:45 Last ORT Risk Category Low Risk 02/28/24 10:45 Review of Systems ROS Narrative ROS: a complete review of systems were reviewed with patient and are positive as below or listed in History of Chief Complaint. General: no fever, chills, night sweats Head: no headache, trauma, visual changes, nausea or vomiting Skin: no reported rashes, itching or sores Eyes: no blurriness of vision Ears: no reported hearing loss, vertigo, earache, or tinnitus Throat: no sore throat, hoarseness, swelling of neck, or tongue pain Heart: no chest pain Lungs:shortness of breath, no cough GI: no diarrhea or vomiting/nausea Urinary: no urinary urgency, frequency or pain Neuro: no numbness or tingling HEM: no bleeding issues or bruising ENDO: no thyroid problems Psych: no anxiety or depression [facility] Medical History (Updated 02/28/24 @ 14:15 by Isabelle Laughlin DO) Hyperlipemia ?E78.5 - Hyperlipidemia, unspecified (ICD-10) GERD (gastroesophageal reflux disease) ?K21.9 - Gastro-esophageal reflux disease without esophagitis (ICD-10) Anxiety ?F41.9 - Anxiety disorder, unspecified (ICD-10) Arthritis ?M19.90 - Unspecified osteoarthritis, unspecified site (ICD-10) Anemia ?D64.9 - Anemia, unspecified (ICD-10) Asthma ?J45.909 - Unspecified asthma, uncomplicated (ICD-10) Diarrhea ?R19.7 - Diarrhea, unspecified (ICD-10) Constipation ?K59.00 - Constipation, unspecified (ICD-10) Tachycardia ?R00.0 - Tachycardia, unspecified (ICD-10) Palpitations ?R00.2 - Palpitations (ICD-10) Hypertension ?I10 - Essential (primary) hypertension (ICD-10) Colon polyp ?K63.5 - Polyp of colon (ICD-10) Surgical History History of bladder surgery ?Z98.890 - Other specified postprocedural states (ICD-10) History of colonoscopy ?Z98.890 - Other specified postprocedural states (ICD-10) History of esophagogastroduodenoscopy (EGD) ?Z98.890 - Other specified postprocedural states (ICD-10) History of hysterectomy ?Z90.710 - Acquired absence of both cervix and uterus (ICD-10) History of cholecystectomy ?Z90.49 - Acquired absence of other specified parts of digestive tract (ICD-10) History of appendectomy ?Z90.49 - Acquired absence of other specified parts of digestive tract (ICD-10) Family History Other Family history of Alzheimer's disease Family history of breast cancer Family history of gastric cancer Family history of heart disease Family history of stroke Social History Within the past year, how often did you have a drink containing alcohol: monthly or less Smoking status: Never smoker Non-prescribed substance use: denies use Highest level of school completed/degree received: high school graduate Meds Home Medications and Allergies Home Medications ?Medication ?Instructions ?Recorded ?Confirmed ?Type albuterol sulfate 90 mcg/actuation 2 inh inhalation Q6H PRN shortness 01/14/23 02/28/24 History aerosol inhaler of breath or wheezing cyclobenzaprine 10 mg tablet 10 mg PO Q8H PRN muscle spasm 01/14/23 02/28/24 History fluticasone fur. 100 mcg-umeclid 1 inh inhalation DAILY 01/14/23 02/28/24 History 62.5 mcg-vilant 25 mcg inhalat.powder (Trelegy Ellipta) losartan 100 1 tab PO DAILY 01/14/23 02/28/24 History mg-hydrochlorothiazide 25 mg tablet (Hyzaar) omeprazole 40 mg capsule,delayed 40 mg PO DAILY 01/14/23 02/28/24 History release rosuvastatin 10 mg tablet (Crestor) 10 mg PO DAILY 01/14/23 02/28/24 History alprazolam 0.5 mg tablet 0.25 mg PO TID PRN anxiety 02/28/24 02/28/24 History diltiazem HCl 60 mg tablet 60 mg PO TID 02/28/24 02/28/24 History fluoxetine 40 mg capsule 40 mg PO DAILY 02/28/24 02/28/24 History loratadine 10 mg tablet (Loradamed) 10 mg PO DAILY 02/28/24 02/28/24 History potassium chloride 20 mEq 20 meq PO BID 02/28/24 02/28/24 History tablet,extended release Allergies Allergy/AdvReac Type Severity Reaction Status Date / Time Penicillins Allergy Unknown Verified 01/14/23 12:26 Exam Narrative Exam Narrative: General: Patient is alert, and oriented to person, place and time with normal affect, short of breath with conversing Skin: no visible rashes, or ulcers Head: atraumatic, acephalic Eyes: PERRLA, no nystagmus present, conjunctiva clear, no scleral icterus Ears: normal Tympanic Membrane, normal gross auditory acuity Nose: symmetric, no discharge, no maxillary or frontal sinus tenderness Mouth/Throat: erythema, no exudate, or tonsillar enlargement, normal dentition Neck: no masses palpated Heart: Normal rate and rhythm, no murmurs/rubs/gallops Lungs: audible wheezes, no crackles and diminished breath sounds all lung da silva Abdomen: Normal audible bowel sounds, no distension, No palpable masses, no organomegaly, no rebound/guarding/ or rigidity Musculoskeletal: no swelling bilateral lower extremities Neuro: CN II-X grossly intact Constitutional Vital Signs, click to edit/add: Last Vital Signs Temp 97.9 F 02/28/24 08:05 Pulse 105 H 02/28/24 10:00 Resp 18 02/28/24 10:00 BP 140/90 02/28/24 10:00 Pulse Ox 94 L 02/28/24 10:22 O2 Del Method Room Air 02/28/24 10:22 Results Labs Labs: Short CBC 02/28/24 Range/Units 08:15 WBC 9.7 (4.0-11.0) 10^3/uL Hgb 13.4 (12.0-16.0) g/dL Hct 39.7 (36.0-48.0) % Plt Count 247 (150-450) 10^3/uL BMP 02/28/24 08:15 Sodium 134 L Potassium 3.8 Chloride 98 Carbon Dioxide 26.8 BUN 11.0 Creatinine 0.72 Glucose 99 Calcium 9.2 Liver Function 02/28/24 Range/Units 08:15 Total Bilirubin 0.6 (0.2-1.0) mg/dL AST 19 (15-37) U/L ALT 23 (14-59) U/L Alkaline Phosphatase 97 (46-116) U/L Albumin 4.0 (3.4-5.0) g/dL Assessment and Plan Assessment and Plan (1) Asthma exacerbation: Assessment and Plan: will schedule duonebs q6 hours, PRN albuterol, already given Mag, Solumedrol 60mg q8 hours IV, monitor oxygen status and OPEP therapy Qualifiers: Asthma persistence: persistent Asthma severity: moderate Qualified Code(s): J45.41 - Moderate persistent asthma with (acute) exacerbation (2) Pneumonia: Assessment and Plan: community acquired, saturating well on room air, seen in lingular area; continue azithromycin IV and Rocephin IV Qualifiers: Laterality: left Lung location: unspecified part of lung Pneumonia type: due to unspecified organism Qualified Code(s): J18.9 - Pneumonia, unspecified organism (3) Hypertension: Assessment and Plan: continue losartan/hctz, diltazem, Qualifiers: Hypertension type: primary hypertension Qualified Code(s): I10 - Essential (primary) hypertension (4) Anxiety: Assessment and Plan: continue as needed alprazolam (5) GERD (gastroesophageal reflux disease): Assessment and Plan: continue omeprazole Qualifiers: Esophagitis presence: esophagitis presence not specified Qualified Code(s): K21.9 - Gastro-esophageal reflux disease without esophagitis (6) Hyperlipemia: Assessment and Plan: continue statin Qualifiers: Hyperlipidemia type: unspecified Qualified Code(s): E78.5 - Hyperlipidemia, unspecified Plan patient is a full code continue Lovenox for DVT prophylaxis Patient is inpatient status and is expected to cross 2 midnights for medically necessary care and higher risk of decompensation to treat her asthma exacerbation.
--- OUTSIDE RECORDS SUMMARY | 2024-02-28 10:47 | XMS_ITS | CCD ---
Author Organization [facility] Care Team Providers Care Stunt Person Name Role Phone ADORE, DR MARIALUISA Anguiano [...] NADERER, DR SHAHEED Thomas Primary Care Unavailable KENLY, DR MARIALUISA Anguiano Attending Unavailable KENLY, DR MARIALUISA Anguiano Admitting Unavailable KENLY, DR MARIALUISA Anguiano Consulting Unavailable [facility], DR SHAHEED Thomas Primary Care Unavailable KENLY, DR MARIALUISA Anguiano Attending Unavailable WEST, DR MARIALUISA Anguiano Admitting Unavailable WEST, DR MARIALUISA Anguiano Consulting Unavailable [facility], DR SHAHEED Thomas Primary Care Unavailable KENLY, DR MARIALUISA Anguiano Attending Unavailable KENLY, DR MARIALUISA Anguiano Admitting Unavailable Shaheed De La Torre MD Primary Care Provider [phone] [facility] Attending Unavailable LEONIDAS PETERS Attending Unavailable NADERER, SHAHEED Attending Unavailable NADERER, SHAHEED Attending Unavailable NADERER, SHAHEED Attending Unavailable NADERER, SHAHEED Attending Unavailable Allergies Allergy Classification Reported Allergen(s) Allergy Type Date of Onset Reaction(s) Facility (1 source) Albuterol Drug Allergy [facility] Repository (1 source) Penicillin Drug Allergy [facility] Repository (3 sources) Albuterol Drug Allergy 9 Palpitations [facility] (3 sources) Cephalosporins (Antibiotic) Drug Allergy 3 Diarrhea, GI intolerance [facility] (4 sources) Penicillins; Translations: [PENICILLINS] Drug Allergy 8 GI intolerance [facility] (3 sources) cefdinir; Translations: [CEFDINIR] Drug Allergy 1 Diarrhea, GI intolerance [facility] (1 source) Albuterol; Translations: [ALBUTEROL SULFATE] Drug Allergy 9 [facility] Repository Medications Current Medications Medication Drug Class(es) Dates Sig (Normalized) Sig (Original) ALPRAZolam 0.5 mg oral tablet (3 sources) Benzodiazepine Start: 4 End: 4 take 0.5 tablet by mouth three times daily as needed for anxiety ALPRAZolam (Xanax) 0.5 MG tablet Indications: LAUREL (generalized anxiety disorder) ([facility]) Take 0.5 tablets (0.25 mg) by mouth [...] powder (3 sources) Polyene Antifungal nystatin (Mycostatin) 503473 UNIT/GM powder Apply 1 application topically in [...] 06-10-2023 Chronic Other aftercare (1 source) Other terminal clerk (current) drug therapy; Translations: [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] Onset: 3 Episodic Other aftercare (4 sources) Patient encounter status; Translations: [Other fci (current) drug therapy] Onset: 4 08-19-2023 Episodic [...] Range Facility Office Visiton 08-23-2023 Follow-up visit [id number] Pankaj Napier 1945 F Date Provider Department Center 08/23/2023 [facility] Family History Problem Relation Age of Onset Coronary artery disease Mother Coronary artery disease Brother Family Status - Relation Status Age at Mother Brother Level of Service:95446 NM OFFICE/OUTPATIENT ESTABLISHED LOW MDM 20 MIN Normal [facility] MG MAMM SCREEN 3D SHARLENE CADon 09-24-2022 MG MAMM SCREEN 3D SHARLENE CAD Patient: KOLTON NAPIER Exam Date: 09/24/2022 : 1945 Gender:F Ordering : DR SHAHEED DE LA TORRE . Admission #: [id number] Family : Order #: [id number] CLICK HERE TO VIEW EXAM RADIOLOGY REPORT [...] age 80. LOCATION: [facility] BREAST COMPOSITION: Scattered areas fibroglandular density. [...] at 07:08 Normal [facility] Office Visiton 08-31-2022 Follow-up visit [id number] Pankaj Napier 1945 F Date Provider Department Center 08/31/2022 [id number] PETERS [facility] Family History Problem Relation Age of Onset Coronary artery disease Mother Coronary artery disease Brother Family Status - Relation Status Age at Mother Brother Level of Service:29498 NM OFFICE/OUTPATIENT ESTABLISHED MOD MDM 30-39 MIN Reason for Visit and Comments: Follow-up [161529] - 1 yr follow up Normal [facility] CBC AUTO DIFFon 07-17-2022 BASO # 0.1 103/ul Normal 0.0-0.1 [facility] Comment on above: Performed By: #### C BC ####[facility] [address] [place] [id number]. Fidencio Walker Basophils/100 WBC (Bld) 0.8 % Normal 0.2-2.0 [facility] Comment on above: Performed By: #### C BC ####[facility] [address] [place], [place] [address]In. Fidencio Walker EO # 0.4 103/ul Normal 0.0-0.7 [facility] Comment on above: Performed By: #### C BC ####[facility] [address] [place], [place] [address]Vv. Fidencio Walker Eosinophils/100 WBC (Bld) 4.7 % Normal 0.9-7.0 [facility] Comment on above: Performed By: #### C BC ####[facility] [address] [place] [address]Dr. Fidencio Walker Erythrocyte distribution width (RBC) [Ratio] 13.0 % Normal 11.0-15.0 [facility] Comment on above: Performed By: #### C BC ####[facility] [address] [place], [place] [address]Dr. Fidencio Walker Hematocrit (Bld) [Volume fraction] 43.0 % Normal 36.0-48.0 [facility] Comment on above: Performed By: #### C BC ####[facility] [address] [place], [place] [address]Dr. Fidencio Walker Hemoglobin (Bld) [Mass/Vol] 13.1 g/dL Normal 12.0-16.0 [facility] Comment on above: Performed By: #### C BC ####[facility] [address] [place], [place] [address]Dr. Fidencio Walker IG # 0.02 10e3/ul Normal 0.00-0.03 [facility] Comment on above: Performed By: #### C BC ####[facility] [address] [place], [place] [address]Dr. Fidencio Walker IG % 0.3 % Normal 0.0-0.5 [facility] Comment on above: Performed By: #### C BC ####[facility] [address]of[address] [place], [place] [address]Dr. Fidencio Walker LYMPH # 2.2 103/ul Normal 1.2-3.8 [facility] Comment on above: Performed By: #### C BC ####[facility] Tz[address] [place], [place] [address]Dr. Fidencio Walker Lymphocytes/100 WBC (Bld) 28.7 % Normal 20.5-60.0 [facility] Comment on above: Performed By: #### C BC ####[facility] Y[address] [place], [place] [address]Dr. Fidencio Walker MANUAL DIFF REQ NO Normal [facility] Comment on above: Performed By: #### C BC ####[facility] [address] [place] [id number]. Fidencio Walker MCH (RBC) [Entitic mass] 30.9 pg Normal 26.7-34.0 [facility] Comment on above: Performed By: #### C BC ####[facility] [address] [place] [address]Dr. Fidencio Walker MCHC (RBC) [Mass/Vol] 30.5 g/dL Normal 29.9-35.2 [facility] Comment on above: Performed By: #### C BC ####[facility] [address] [place] [address]Dr. Fidencio Aaron MCV (RBC) [Entitic vol] 101.4 fL Critically high 81.0-99.0 [facility] Comment on above: Performed By: #### C BC ####[facility] [address] [place], [place] [address]Dr. Fidencio Walker MONO # 0.5 103/ul Normal 0.3-0.8 [facility] Comment on above: Performed By: #### C BC ####[facility] P[address] [place], [place] [address]Dr. Galileanickolas Walker Monocytes/100 WBC (Bld) 7.1 % Normal 1.7-12.0 [facility] Comment on above: Performed By: #### C BC ####[facility] Wy[address]scfwhe[address] [place], [place] [address]Dr. Fidencio Aaron NEUT # 4.4 103/ul Normal 1.4-6.5 [facility] Comment on above: Performed By: #### C BC ####[facility] [address] [place], [place] [address]Dr. Galileanickolas Walker Neutrophils/100 WBC (Bld) 58.4 % Normal 43.0-75.0 [facility] Comment on above: Performed By: #### C BC ####[facility] [address] [place], [place] [address]Dr. Fidencio Walker Platelet mean volume (Bld) [Entitic vol] 10.8 fL Normal 9.5-13.5 [facility] Comment on above: Performed By: #### C BC ####[facility] [address] [place] [id number]. Fidencio Walker PLT 200 103/ul Normal 150-450 [facility] Comment on above: Performed By: #### C BC ####[facility] [address] [place], [place] [address]Ty. Fidencio Walker RBC 4.24 106/ul Normal 4.20-5.40 [facility] Comment on above: Performed By: #### C BC ####[facility] [address] [place] [id number]. Fidencio Walker WBC 7.5 103/ul Normal 4.0-11.0 [facility] Comment on above: Performed By: #### C BC ####[facility] [address] [place] [id number]. Fidencio Walker LIPID PROFILEon 07-17-2022 CHOL-HDL RATIO NORM SEE BELOW Normal [facility] Comment on above: Result Comment: 3.3 - 4.4 LOW RISK 4.4 - 7.1 AVERAGE RISK 7.1 - 11.0 MODERATE RISK >11.0 HIGH RISK Performed By: #### L IPID, LIVER, BMP ####[facility] [address] [place] [id number]. Fidencio Walker Cholesterol [Mass/Vol] 134 mg/dL Normal <=200 [facility] Comment on above: Performed By: #### L IPID, LIVER, BMP ####[facility] [address] [place] [id number]. Fidencio Walker Cholesterol in HDL [Mass/Vol] 57 mg/dL Normal 40-60 [facility] Comment on above: Performed By: #### L IPID, LIVER, BMP ####[facility] [address] [place] [phone]. Fidencio Walker Cholesterol in LDL [Mass/Vol] 59.6 mg/dL Normal [facility] Comment on above: Performed By: #### L IPID, LIVER, BMP ####[facility] [address] [place] [id number]. Fidencio Walker Cholesterol.total/Ch olesterol in HDL [Mass ratio] 2.4 {ratio} Normal [facility] Comment on above: Performed By: #### L IPID, LIVER, BMP ####[facility] [address] [place] [phone]. Galileanickolas Aaron HDL NORMAL > or = 60 mg/dl - LO W CARDIOVASCULAR RISK <40 mg/dl - HIGH CARDIOVASCULAR RISK Normal [facility] Comment on above: Performed By: #### L IPID, LIVER, BMP ####[facility] [address] [place] [address]Dr. Fidencio Walker LDL CALC NORMAL SEE BELOW Normal [facility] Comment on above: Result Comment: <100 mg/dl OPTIMAL 100 - 129 mg/dl NEAR OR ABOVE OPTIMAL 130 - 159 mg/dl BORDERLINE HIGH 160 - 189 mg/dl HIGH >190 mg/dl VERY HIGH Performed By: #### L IPID, LIVER, BMP ####[facility] [address] [place] [address]Dr. Fidencio Walker Triglyceride [Mass/Vol] 87 mg/dL Normal <=150 [facility] Comment on above: Performed By: #### L IPID, LIVER, BMP ####[facility] [address] [place], [place] [address]Dr. Fidencio Walker VLDL CALC 17.4 mg/dL Normal [facility] Comment on above: Performed By: #### L IPID, LIVER, BMP ####[facility] [address] [place] [id number]. Galileanickolas Aaron LIVER PROFILEon 07-17-2022 Albumin [Mass/Vol] 3.7 g/dL Normal 3.4-5.0 [facility] Comment on above: Performed By: #### L IPID, LIVER, BMP ####[facility] [address] [place] [address]Dr. Fidencio Walker Albumin/Globulin [Mass ratio] 1.0 {ratio} Normal [facility] Comment on above: Performed By: #### L IPID, LIVER, BMP ####[facility] [address] [place] [id number]. Fidencio Walker ALP [Catalytic activity/Vol] 58 U/L Normal 46-116 [facility] Comment on above: Performed By: #### L IPID, LIVER, BMP ####[facility] [address] [place] [address]Dr. Fidencio Walker ALT [Catalytic activity/Vol] 13 U/L Critically low 14-59 [facility] Comment on above: Performed By: #### L IPID, LIVER, BMP ####[facility] [address] [place] [address]Dr. Fidencio Walker AST [Catalytic activity/Vol] 18 U/L Normal 15-37 [facility] Comment on above: Performed By: #### L IPID, LIVER, BMP ####[facility] [address] [place] [address]Dr. Fidencio Walker BILI, CONJUGATED 0.1 mg/dL Normal 0.0-0.2 [facility] Comment on above: Performed By: #### L IPID, LIVER, BMP ####[facility] [address] [place] [address]Dr. Fidencio Walker Bilirubin [Mass/Vol] 0.3 mg/dL Normal 0.2-1.0 [facility] Comment on above: Performed By: #### L IPID, LIVER, BMP ####[facility] [address] [place] [address]Dr. Fidencio Walker Globulin (S) [Mass/Vol] 3.6 g/dL Normal [facility] Comment on above: Performed By: #### L IPID, LIVER, BMP ####[facility] [address] [place] [address]Dr. Fidencio Walker Protein [Mass/Vol] 7.3 g/dL Normal 6.4-8.2 [facility] Comment on above: Performed By: #### L IPID, LIVER, BMP ####[facility] [address] [place] [address]Dr. Fidencio Walker PROF CHEM 8 (BAS METB)on Anion gap [Moles/Vol] 11.3 mmol/L Normal [facility] Comment on above: Performed By: #### L IPID, LIVER, BMP ####[facility] [address] [place] [address]Dr. Fidencio Walker Calcium [Mass/Vol] 9.2 mg/dL Normal 8.5-10.1 [facility] Comment on above: Performed By: #### L IPID, LIVER, BMP ####[facility] [address] [place] [address]Dr. Fidencio Walker Chloride [Moles/Vol] 102 mmol/L Normal 98-107 [facility] Comment on above: Performed By: #### L IPID, LIVER, BMP ####[facility] [address] [place] [address]Dr. Fidencio Walker CO2 [Moles/Vol] 29.5 mmol/L Normal 21.0-32.0 [facility] Comment on above: Performed By: #### L IPID, LIVER, BMP ####[facility] [address] [place], [place] [address]Dr. Fidencio Walker Creatinine [Mass/Vol] 0.92 mg/dL Normal 0.55-1.02 [facility] Comment on above: Performed By: #### L IPID, LIVER, BMP ####[facility] [address] [place] [address]Dr. Fidencio Walker EGFR-AF EQUATORIAL GUINEAN >60 Normal >=60 [facility] Comment on above: Result Comment: Prev iously reported as: (blank) On 07/17/2022 13:28 By AJR Performed By: #### L IPID, LIVER, BMP ####[facility] [address] [place] [address]Dr. Fidencio Walker EGFR-NON AF EQUATORIAL GUINEAN 59 mL/min/1.73m2 Critically low >=60 [facility] Comment on above: Result Comment: Prev iously reported as: (blank) On 07/17/2022 13:28 By AJR Performed By: #### L IPID, LIVER, BMP ####[facility] [address] [place] [address]Dr. Fidencio Walker Glucose [Mass/Vol] 98 mg/dL Normal 74-106 [facility] Comment on above: Performed By: #### L IPID, LIVER, BMP ####[facility] [address] [place] [address]Dr. Fidencio Walker Potassium [Moles/Vol] 3.8 mmol/L Normal 3.5-5.1 [facility] Comment on above: Performed By: #### L IPID, LIVER, BMP ####[facility] [address] [place] [address]Dr. Fidencio Walker Sodium [Moles/Vol] 139 mmol/L Normal 136-145 [facility] Comment on above: Performed By: #### L IPID, LIVER, BMP ####[facility] [address] [place] [address]Dr. Fidencio Walker Urea nitrogen [Mass/Vol] 19.0 mg/dL Critically high 7.0-18.0 [facility] Comment on above: Performed By: #### L IPID, LIVER, BMP ####[facility] [address] [place] [address]Dr. Fidencio Walker Urea nitrogen/Creatinine [Mass ratio] 20.7 mg/mg Normal [facility] Comment on above: Performed By: #### L IPID, LIVER, BMP ####[facility] [address] [place] [address]Dr. Fidencio Walker VC INJ SCL [employer] SECRETARY VEINSon 1 VC INJ [employer]CL [employer] SECRETARY VEINS Patient: KOLTON NAPIER Exam Date: 04/16/2022 : 1945 Gender:F Ordering : DR MARIALUISA AVITIA M.D. Admission #: [id number] Family : Order #: [id number] CLICK HERE TO VIEW EXAM RADIOLOGY REPORT PROCEDURE: VEIN CENTER INJECTION SCLEROSING SOLUTION MULTIPLE VEINS SAME COMPARISON: VC INJ [employer]CL [employer] SECRETARY VEINS, 04/02/2022. VC INJ SCL [employer] SECRETARY VEINS, 03/24/2022. INDICATIONS: Pain co-occurrent and due [...] Avitia MD on 04/16/2022 at 14:34 Normal [facility] VC INJ SCL [employer] SECRETARY VEINSon 0 04-02-2022 VC INJ [employer]CL [employer] VEINS Patient: KOLTON NAPIER Exam Date: 04/02/2022 : 1945 Gender:F Ordering : DR MARIALUISA AVITIA M.D. Admission #: [id number] Family : Order #: [id number] CLICK HERE TO VIEW EXAM RADIOLOGY REPORT PROCEDURE: VEIN CENTER INJECTION SCLEROSING SOLUTION MULTIPLE VEINS SAME COMPARISON: VC INJ [employer]CL [employer]CRETARY VEINS, 03/24/2022. INDICATIONS: Pain co-occurrent and due [...] Vaughan M.D. on 04/02/2022 at 15:47 Normal [facility] VC INJ SCL [employer] SECRETARY VEINSon 0 03-24-2022 VC INJ SCL [employer] VEINS Patient: KOLTON NAPIER. Exam Date: 03/24/2022 : 1945 Gender:F Ordering : DR MARIALUISA AVITIA M.D. Admission #: [id number] Family : Order #: [id number] CLICK HERE TO VIEW EXAM RADIOLOGY REPORT PROCEDURE: VEIN CENTER INJECTION SCLEROSING SOLUTION MULTIPLE VEINS SAME COMPARISON: VC INJ [employer]CL [employer] SECRETARY VEINS, 03/19/2022. VC INJ SCL [employer] SECRETARY VEINS, 03/10/2022. INDICATIONS: Pain co-occurrent and due [...] Marialuisa Avitia MD on 03/24/2022 at 13:41 [facility] VC INJ SCL [employer] SECRETARY VEINSon 0 03-19-2022 VC INJ [employer]CL [employer] SECRETARY VEINS Patient: KOLTON NAPIER. Exam Date: 03/19/2022 : 1945 Gender:F Ordering : DR MARIALUISA AVITIA M.D. Admission #: [id number] Family : Order #: [id number] CLICK HERE TO VIEW EXAM RADIOLOGY REPORT PROCEDURE: VEIN CENTER INJECTION SCLEROSING SOLUTION MULTIPLE VEINS SAME COMPARISON: VC INJ [employer]CL [employer] SECRETARY VEINS, 03/10/2022. VC INJ [employer]CL [employer] SECRETARY VEINS, 03/03/2022. INDICATIONS: Pain co-occurrent and due [...] Avitia MD on 03/19/2022 at 15:13 Normal [facility] VC INJ SCL [employer] SECRETARY VEINSon 0 03-10-2022 VC INJ [employer]CL [employer]CR[employer] VEINS Patient: KOLTON NAPIER. Exam Date: 03/10/2022 : 1945 Gender:F Ordering : DR MARIALUISA AVITIA M.D. Admission #: [id number] Family : Order #: [id number] CLICK HERE TO VIEW EXAM RADIOLOGY REPORT PROCEDURE: VEIN CENTER INJECTION SCLEROSING SOLUTION MULTIPLE VEINS SAME COMPARISON: VC INJ [employer]CL [employer] SECRETARY VEINS, 03/03/2022. INDICATIONS: Pain co-occurrent and due [...] Avitia MD on 03/10/2022 at 14:38 Normal [facility] VC INJ SCL [employer] SECRETARY VEINSon 0 03-03-2022 VC INJ [employer]CL [employer]CR[employer] VEINS Patient: KOLTON NAPIER. Exam Date: 03/03/2022 : 1945 Gender:F Ordering : DR MARIALUISA AVITIA M.D. Admission #: [id number] Family : Order #: [id number] CLICK HERE TO VIEW EXAM RADIOLOGY REPORT [...] Avitia MD on 03/03/2022 at 15:25 Normal [facility] VC CONSULT FOLLOWUPon 2021 VC CONSULT FOLLOWUP Patient: CARTER NAPIER Exam Date: 02/25/2022 : 1945 Gender:F Ordering : DR MARIALUISA AVITIA M.D. Admission #: [id number] Family : Order #: [id number] CLICK HERE TO VIEW EXAM RADIOLOGY REPORT [...] the physical exam and consultation Dictated by: oNah Vaughan M.D. on 02/25/2022 at 15:39 Approved by: Noah Vaughan M.D. on 02/25/2022 at 15:41 Normal [facility] VC EXT VENOUS RT LIMITEDon 0 02-25-2022 VC EXT VENOUS RT LIMITED Patient: KOLTON NAPIER. Exam Date: 02/25/2022 : 1945 Gender:F Ordering : DR MARIALUISA AVITIA M.D. Admission #: [id number] Family : Order #: [id number] CLICK HERE TO VIEW EXAM RADIOLOGY REPORT [...] Vaughan M.D. on 02/25/2022 at 15:39 Normal [facility] VC INJ FOAM SCLERO W US MLTI on 02-19-2022 VC INJ FOAM SCLERO W US MLTI Patient: KOLTON NAPIER. Exam Date: 02/19/2022 : 1945 Gender:F Ordering : DR MARIALUISA AVITIA M.D. Admission #: [id number] Family : Order #: [id number] CLICK HERE TO VIEW EXAM RADIOLOGY REPORT [...] Vaughan M.D. on 02/20/2022 at 09:07 Normal [facility] VC CONSULT FOLLOWUPon 2021 VC CONSULT FOLLOWUP Patient: CARTER NAPIER GALILEA MarthaNeal Exam Date: 02/10/2022 : 1945 Gender:F Ordering : DR MARIAULISA AVITIA M.D. Admission #: [id number] Family : Order #: [id number] CLICK HERE TO VIEW EXAM RADIOLOGY REPORT [...] Avitia MD on 02/10/2022 at 14:56 Normal [facility] VC EXT VENOUS RT LIMITEDon 0 02-10-2022 VC EXT VENOUS RT LIMITED Patient: KOLTON NAPIER Exam Date: 02/10/2022 : 1945 Gender:F Ordering : DR MARIALIUSA AVITIA M.D. Admission #: [id number] Family : Order #: [id number] CLICK HERE TO VIEW EXAM RADIOLOGY REPORT [...] Avitia MD on 02/10/2022 at 14:38 Normal [facility] VC ENDOVENOUS ABL 1ST V RTon 02-03-2022 VC ENDOVENOUS ABL 1ST V RT Patient: KOLTON NAPIER Exam Date: 02/03/2022 : 1945 Gender:F Ordering : DR MARIALUISA AVITIA M.D. Admission #: [id number] Family : Order #: [id number] CLICK HERE TO VIEW EXAM RADIOLOGY REPORT [...] Vaughan M.D. on 02/03/2022 at 14:01 Normal [facility] VC COMP CONSULTATIONon 01-22 VC COMP CONSULTATION Patient: DO HERI NAPIER Exam Date: 01/22/2022 : 1945 Gender:F Ordering : DR MARIALUISA AVITIA M.D. Admission #: [id number] Family : Order #: [id number] CLICK HERE TO VIEW EXAM RADIOLOGY REPORT [...] Avitia MD on 01/22/2022 at 14:56 Normal [facility] VC VENOUS REFLUX SHARLENE LMTon 0 01-22-2022 VC VENOUS REFLUX SHARLENE LMT Patient: KOLTON NAPIER Exam Date: 01/22/2022 : 1945 Gender:F Ordering : DR MARIALUISA AVITIA M.D. Admission #: [id number] Family : Order #: [id number] CLICK HERE TO VIEW EXAM RADIOLOGY REPORT [...] chronic thrombus visualized Compressibility: Normal Flow: Normal Extract Mixer: Dist/med calf 2.7mm with 0s. Mid/med calf [...] Flow: 1.2s of reflux in popliteal vein Extract Mixer: Dist/med calf 4.7mm with 0s reflux. Tech [...] Avitia MD on 01/22/2022 at 14:18 Normal [facility] OBSOLETEon 05-15-2019 OBSOLETE Refill (KAROL) KOLTON NAPIER ([id number]) 1945 F Date Time Provider Department 05/15/19 JAMES JOHNSON During your visit today, we recorded the following information about you: Maribel Osorio Crew Caller II 05/16/2019 4:42 PM Signed Call from pharmacy requesting refill. Pending Prescriptions Disp Refills DILTIAZEM 30 MG TABLET 270 tablet 1 Sig: TAKE ONE TABLET BY MOUTH THREE TIMES A DAY FLORENCIA: Yes Patient last seen 05/30/18 Maribel Osorio Crew Caller II Allergies As of Date: 05/15/2019 Noted [...] Status:Closed by JAMES JOHNSON MD on 05/20/19 [facility] CNOVon 05-30-2018 CNOV Office Visit (CARDMN ) NAPIERKOLTON ([id number]) 1945 F Date Time Provider Department 05/30/18 2:00 PM JAMES JOHNSON During your visit today, we recorded the following information about you: Pulse Blood pressure Weight Height 114/minute 140/78 73.9 kg 1.626 m James Johnson MD, MD 05/30/2018 5:53 PM Signed [facility] Department of Cardiovascular Medicine SECTION OF CARDIAC PACING and ELECTROPHYSIOLOGY OUTPATIENT VISIT DATE May 30, 2018 OUTPATIENT VISIT TYPE NEW PRIMARY CARE PHYSICIAN: Shaheed De La Torre MD ([facility]) [address] [place] [address] IMPRESSION/PLAN: The patient is very pleasant female [...] ECG today: Sinus tachycardia at 114 bpm. NM 154 ms, QRS 86 ms, QTC 460 ms. FOLLOW UP: Return in about 4 months (around 09/27/2018). This note was created using computerized bench repair technician software and may therefore include some bench repair technician errors including errors in gender and inappropriate words or phrases. I reviewed old records, obtained relevant HPI and PMH from the pt, examined the patient and created the above report. James Johnson MD May 30, 2018 Note to: Shaheed De La Torre MD ([facility]) [address] [place] [address] James Johnson MD, 05/30/2018 3:19 PM Signed If symptoms not improving in 7-10 days on low dose diltiazem, call. Referring Provider: REFERRAL, NO(HIST) [[id number]] Allergies As of Date: 05/30/2018 Noted Allergy [...] by JAMES JOHNSON MD on 05/30/18 Normal [facility] ECG COMPLETE W INTERPRETATIO Non 05-30-2018 ECG COMPLETE W INTERPRETATION NAME : KOLTON NAPIER PID : [id number] : 1945 Gender : Female Race : ORD : [id number] Procedure Date : May 30 2018 13:36:13 Edit Date : May 31 2018 13:51:33 Diagnosis:SINUS TACHYCARDIA WITH PREMATURE ATRIAL COMPLEXES OTHERWISE NORMAL ECG Confirmed by MD YAN TAMANNA ([id number]) on 05/31/2018 1:51:26 PM Ventricular Rate : 114 BPM Atrial Rate : 114 BPM P-R Interval : 154 ms QRS Duration : 86 ms Q-T Interval : 334 ms QTC Calculation(Bezet) : 460 ms P Kiel : 37 degrees R Kiel : 30 degrees T Kiel : 46 degrees Test Reason : Location : 314 : [facility] Overread By : MD YAN TAMANNA Edited By : MD YAN TAMANNA Referred By : JAMES JOHNSON Acquired by : BHUMIKA SANCHEZ [facility] PROGRESSon 05-30-2018 PROGRESS HNO ID: [id number] Author: James Johnson MD Service: (none) Author Type: Physician Type: Progress Notes Filed: 05/30/2018 5:53 PM Note Text: [facility] Department of Cardiovascular Medicine SECTION OF CARDIAC PACING and ELECTROPHYSIOLOGY OUTPATIENT VISIT DATE May 30, 2018 OUTPATIENT VISIT TYPE NEW PRIMARY CARE PHYSICIAN: Shaheed De La Torre MD ([facility]) [address] [place] [address] IMPRESSION/PLAN: The patient is very pleasant female [...] ECG today: Sinus tachycardia at 114 bpm. NM 154 ms, QRS 86 ms, QTC 460 ms. FOLLOW UP: Return in about 4 months (around 09/27/2018). This note was created using computerized bench repair technician software and may therefore include some bench repair technician errors including errors in gender and inappropriate words or phrases. I reviewed old records, obtained relevant HPI and PMH from the pt, examined the patient and created the above report. James Johnson MD May 30, 2018 Note to: Shaheed De La Torre MD ([facility]) [address] [place] [address] Normal [facility] Vital Signs Date Time Vital Sign Value Performing Clinician Faci lity 08-19-2023 14:36-0500 Body height 162.6 cm Shaheed De La Torre MD Work Phone: [facility] 08-19-2023 14:36-0500 Body mass index (BMI) [Ratio] 26.09 kg/m2 Shaheed De La Torre MD Work Phone: [facility] 08-19-2023 14:36-0500 Body temperature 98.1 [degF] Shaheed De La Torre MD Work Phone: [facility] 08-19-2023 14:36-0500 Body weight 68.95 kg Shaheed De La Torre MD Work Phone: [facility] 08-19-2023 14:36-0500 Diastolic blood pressure 70 mm[Hg] Shaheed De La Torre MD Work Phone: [facility] 08-19-2023 14:36-0500 Heart rate 71 /min Shaheed De La Torre MD Work Phone: [facility] 08-19-2023 14:36-0500 SaO2% (BldA) [Mass fraction] 98 % Shaheed De La Torre MD Work Phone: [facility] 08-19-2023 14:36-0500 Systolic blood pressure 108 mm[Hg] Shaheed De La Torre MD Work Phone: [facility] Encounters Encounter Date Encounter Type Care Provider Facility Start: 02-17-2024 End: 02-17-2024 ambulatory SHAHEED DE LA TORRE Not Available Start: 09-15-2023 End: 09-15-2023 ambulatory SHAHEED DE LA TORRE Not Available Start: 08-23-2023 End: 08-23-2023 ambulatory [facility] Start: 08-19-2023 End: 08-19-2023 Office outpatient visit 25 minutes Shaheed De La Torre MD Work Phone: [facility] Comment on above: Benign [...] VAUGHAN Facility: Start: 08-31-2022 End: 08-31-2022 ambulatory [facility] Start: 07-17-2022 End: 07-18-[address] [...] Visit [facility] [address] [place] [address] Shaheed De La Torre MD [address] [place] [address] Arrived [facility] Comment on above: [...] of medications Expected: 08/19/2023 (Approximate), Expires: 08/19/2024 [facility] Comment on above: Expected: 08/19/2023 (Approximate), Expires: 08/19/2024 Start: 08-19-2023 End: 08-19-2024 Hepatic function 2000 panel - Serum or Plasma Hepatic function panel Lab Routine Encounter for long-term (current) use of medications Expected: 08/19/2023 (Approximate), Expires: 08/19/2024 [facility] Comment on above: Expected: 08/19/2023 (Approximate), Expires: 08/19/2024 Start: 08-19-2023 End: 08-19-2024 Lipid 1996 panel - Serum or Plasma Lipid panel Lab Routine Dyslipidemia (CMS/HCC) Expected: 08/19/2023 (Approximate), Expires: 08/19/2024 [facility] Comment on above: Expected: 08/19/2023 (Approximate), Expires: 08/19/2024 Start: 1945 Medicare Annual Wellness (AWV) Medicare Annual Wellness (AWV) [facility] Payers Date Payer Category Payer Medicare AETNA MEDICARE A DVANTAGE AETNA MEDICARE REPLACEMENT [id number] 2022-Present [address] [place] [address] [id number] 1959 Medicare [id number] 1945 Unknown [id number] 1945 Unknown [id number] 2.16.840.1.181526.3.579.2.593 1945 Unknown [id number] 2.16.840.1.078425.3.579.2.593 1945 Unknown [id number] 2.16.840.1.214928.3.579.2.593 1945 Unknown [id number] 2.16.840.1.671514.3.579.2.593 1945 Unknown [id number] 2.16.840.1.097434.3.579.2.593 1945 Unknown [id number] 2.16.840.1.160741.3.579.2.593 1945 Unknown [id number] 2.16.840.1.187518.3.579.2.593 1945 Unknown [id number] 2.16.840.1.133772.3.579.2.593 1945 Unknown [id number] 2.16.840.1.998258.3.579.2.593 1945 Unknown [id number] 2.16.840.1.956594.3.579.2.593 1945 Unknown [id number] 2.16.840.1.704209.3.579.2.593 1945 Unknown [id number] 2.16.840.1.224672.3.579.2.593 1945 Unknown [id number] 2.16.840.1.716206.3.579.2.1259 1945 Unknown [id number] 2.16.840.1.988060.3.579.2.1259 1945 Unknown [id number] 2.16.840.1.681661.3.579.2.1259 1945 Unknown [id number] 2.16.840.1.034589.3.579.2.1259 Social History Date Type Detail Facility Start: 06-10-2023 End: 08-19-2023 Tobacco smoking status MIIS Never smoked tobacco [facility] Start: 06-10-2023 End: 08-19-2023 Tobacco use and exposure Smokeless tobacco non-user [facility] Start: 06-10-2023 End: 08-19-2023 Alcohol intake Ex-drinker (finding) [facility] Start: 06-10-2023 End: 08-19-2023 History of Social function [facility] Start: 06-10-2023 End: 08-19-2023 Tobacco use panel [facility] Start: 06-10-2023 Alcohol Comment holiday [facility] Start: 1945 Sex Assigned At Not on file [facility] NEGATED: Highlighted rowStart: NINF History of tobacco use Passive smoker [facility] Progress note 08-23-2023 Note Date & Type Note Facility 08-23-[address] [facility] Clinic Note Chief Complaint: Patient [...] history of COPD (chronic obstructive pulmonary disease) ([facility]), Heart murmur, Heart valve disease, Hypertension, Palpitations, [...] her echocardiogram Eve Adams MD, MPH, FACC, [facility] Interventional Cardiology Pager Email: [email or web address] History of Present illness Narrative 08-19-2023 [...] Hepatic function panel documented in this encounter [facility] Progress note 08-31-2022 Note Date & Type Note Facility 08-31-2022 Note Patient is here toda y for 1yr follow up. Review of Systems All other systems reviewed and are negative. [facility] Progress note 08-31-2022 Note Date & [...] Intermittent palpitations Paroxysmal SVT (supraventricular tachycardia) (CMS/HCC) AMRIE (dyspnea on exertion) Other emphysema (CMS/HCC) Mitral [...] about 1 year (around 08/31/2023). Leonidas Peters APRN-ROLLED HAM LACER [facility] Cardiovascular Medicine [facility] Evaluation note Note Date & Type [...] section and content) DATE CREATED AUTHOR 05/20/2019 [facility] DATE CREATED AUTHOR AUTHOR'S ORGANIZ ATION 09/27/2022 [facility] DATE CREATED AUTHOR AUTHOR'S ORGANIZ ATION 2023 [facility] DATE CREATED AUTHOR AUTHOR'S ORGANIZ ATION 02/19/2024 [facility] Specialists EPIC Care Teams (unrecognized sec tion and content) Stunt Person Relationship Specialty Start Date End Date Shaheed De La Torre MD [address] [place] [id number] PCP - General Family Medicine 08/19/23 Stunt Person Relationship Specialty Start Date End Date Shaheed De La Torre MD [address] [place] [address] PCP - General Family Medicine 08/19/23 Reason [...] BE BASED ON THE PRIMARY CLINICAL RECORDS. [facility]. provides no warranty or guarantee of the accuracy or completeness of information in this document.
[2024-02-28 10:54] LABS: Magnesium 2.4 mg/dL (1.8-2.4)
[2024-02-28] MEDS: PANTOPRAZOLE SODIUM 40 MG VIAL IV (11:18)
[2024-02-28] MEDS: ENOXAPARIN SODIUM 40 MG/0.4 ML SYRINGE SUBQ (11:18)
[2024-02-28] MEDS: 0.9 % SODIUM CHLORIDE 250 ML 10 ML IV (11:21)
--- NOTE | 2024-02-28 13:59 | SWNOTE1 ---
NOHEMI met with pt, pt's daughter, and pt's grandson in room. Pt lives at home with her . She does have a cane that she uses as needed. Pt is independent with ADL's. Pt's used to have HH, but they have no services coming in right now. Pt did work with therapy and pt did well, no need for any services. At this time no anticipated discharge needs. Pt did mention having a nebulizer? (pt said breathing machine) at home and it may not be working correctly. Pt also did voice her medications are very expensive and so are her husbands. NOHEMI advised pt that NOHEMI can see if there are any resources out there to assist with med cost, but did advise there may not. Pt voiced understanding. Important Message from Medicare reviewed and discussed with patient. Pt. verbalized understanding and signed the form. Original given to patient and copy placed in patient?s chart.
[2024-02-28] MEDS: METHYLPREDNISOLONE SOD SUCC PF 40 MG/ML VIAL IVP ×2 (14:12→21:32)
[2024-02-28] MEDS: DILTIAZEM HCL 60 MG TABLET PO ×2 (15:55→21:32)
[2024-02-28] MEDS: ALPRAZOLAM 0.25 MG TABLET PO (21:32)
[2024-02-28] MEDS: POTASSIUM CHLORIDE 10 MEQ ER TABLET 20 MEQ PO (21:32)
[2024-02-28] MEDS: BUDESONIDE 0.5 MG/2 ML AMPULE NEB IH (22:14)
[2024-02-29] VITALS (22 sets, daily range): BP systolic 103–155; BP diastolic 64–94; PULSE 59–114; TEMP 36.3–36.8; O2SAT 91–98
[2024-02-29] MEDS: CYCLOBENZAPRINE HCL 10 MG TABLET PO ×2 (00:43→21:50)
[2024-02-29] MEDS: GUAIFENESIN 200 MG/DEXTROMETHORPHAN 20 MG 10 ML UNIT DOSE CUP PO ×4 (00:43→21:50)
[2024-02-29] MEDS: METHYLPREDNISOLONE SOD SUCC PF 40 MG/ML VIAL IVP ×4 (03:39→20:44)
[2024-02-29] MEDS: IPRATROPIUM/ALBUTEROL SULFATE 3 ML AMPUL.NEB IH ×4 (04:21→23:28)
[2024-02-29] MEDS: DILTIAZEM HCL 60 MG TABLET PO ×3 (06:02→21:02)
[2024-02-29 06:08] LABS: Basophils Percent Auto 0.1 % (0.2-2.0); Eosinophils Percent Auto 0.1 % (0.9-7.0); Hematocrit 37.3 % (36.0-48.0); Hemoglobin 12.6 g/dL (12.0-16.0); Immature Granulocytes Abs Auto 0.03 10^3/uL (0.00-0.03); Immature Granulocytes Pct Auto 0.3 % (0.0-0.5); Lymphocytes Absolute Auto 0.8 10^3/uL (1.2-3.8); Lymphocytes Percent Auto 9.3 % (20.5-60.0); Mean Corpuscular HGB Conc 33.8 g/dL (29.9-35.2); Mean Corpuscular Hemoglobin 31.6 pg (26.7-34.0); Mean Corpuscular Volume 93.5 fL (81.0-99.0); Mean Platelet Volume 10.3 fL (9.5-13.5); Monocytes Absolute Auto 0.2 10^3/uL (0.3-0.8); Monocytes Percent Auto 2.4 % (1.7-12.0); Neutrophils Absolute Auto 7.8 10^3/uL (1.4-6.5); Neutrophils Percent Auto 87.8 % (43.0-75.0); Platelet Count 219 10^3/uL (150-450); Red Blood Count 3.99 10^6/uL (4.20-5.40); Red Cell Distribution Width 11.7 % (11.0-15.0); White Blood Count 8.9 10^3/uL (4.0-11.0)
[2024-02-29 06:25] LABS: Alanine Aminotransferase 20 U/L (14-59); Albumin Level 3.8 g/dL (3.4-5.0); Alkaline Phosphatase 94 U/L (46-116); Anion Gap 12.2; Aspartate Amino Transferase 18 U/L (15-37); BUN Creatinine Ratio 14.3; Bilirubin Total 0.4 mg/dL (0.2-1.0); Calcium 9.1 mg/dL (8.5-10.1); Carbon Dioxide 26.4 mmol/L (21.0-32.0); Chloride 101 mmol/L (98-107); Estimated GFR (African America >60 (>=60); Estimated GFR (Non-African Ame >60 (>=60); Globulin 3.7 g/dL; Glucose 164 mg/dL (74-106); Potassium 3.6 mmol/L (3.5-5.1); Sodium 136 mmol/L (136-145); Total Protein 7.5 g/dL (6.4-8.2)
--- NOTE | 2024-02-29 08:35 | P.PN_ITS ---
Progress Note: Subjective Subjective Interval history: Patient is up to the Chair. She still short of breath with talking. Still having audible wheezes. She is in good spirits and says she feels better. Her and sister are present during morning exam and they agree she is not back to baseline. No fevers or chills. Coughing more. Exam Narrative Exam Narrative: General: Patient is alert, and oriented to person, place and time with normal affect, short of breath with conversing Skin: no visible rashes, or ulcers Head: atraumatic, acephalic Eyes: PERRLA, no nystagmus present, conjunctiva clear, no scleral icterus Ears: normal Tympanic Membrane, normal gross auditory acuity Nose: symmetric, no discharge, no maxillary or frontal sinus tenderness Mouth/Throat: erythema, no exudate, or tonsillar enlargement, normal dentition Neck: no masses palpated Heart: Normal rate and rhythm, no murmurs/rubs/gallops Lungs: audible wheezes, no crackles and diminished breath sounds all lung da silva Abdomen: Normal audible bowel sounds, no distension, No palpable masses, no organomegaly, no rebound/guarding/ or rigidity Musculoskeletal: no swelling bilateral lower extremities Neuro: CN II-X grossly intact Constitutional Vital Signs, click to edit/add: Last Vital Signs Temp 98.1 F 02/29/24 07:37 Pulse 95 H 02/29/24 07:58 Resp 20 02/29/24 07:37 BP 149/89 H 02/29/24 07:37 Pulse Ox 94 L 02/29/24 07:37 O2 Del Method Room Air 02/29/24 07:37 Progress Note: Objective Labs Labs: Short CBC 02/28/24 02/29/24 Range/Units 08:15 05:44 WBC 9.7 8.9 (4.0-11.0) 10^3/uL Hgb 13.4 12.6 (12.0-16.0) g/dL Hct 39.7 37.3 (36.0-48.0) % Plt Count 247 219 (150-450) 10^3/uL BMP 02/28/24 02/29/24 08:15 05:44 Sodium 134 L 136 Potassium 3.8 3.6 Chloride 98 101 Carbon Dioxide 26.8 26.4 BUN 11.0 9.0 Creatinine 0.72 0.63 Glucose 99 164 H Calcium 9.2 9.1 Liver Function 02/28/24 02/29/24 Range/Units 08:15 05:44 Total Bilirubin 0.6 0.4 (0.2-1.0) mg/dL AST 19 18 (15-37) U/L ALT 23 20 (14-59) U/L Alkaline Phosphatase 97 94 (46-116) U/L Albumin 4.0 3.8 (3.4-5.0) g/dL Progress Note: A&P Assessment and Plan (1) Asthma exacerbation: Assessment and Plan: duonebs q6 hours, PRN albuterol, already given Mag, Solumedrol 60mg q8 hours IV, monitor oxygen status and OPEP therapy Qualifiers: Asthma persistence: persistent Asthma severity: moderate Qualified Code(s): J45.41 - Moderate persistent asthma with (acute) exacerbation (2) Pneumonia: Assessment and Plan: community acquired, saturating well on room air, seen in lingular area; continue azithromycin IV and Rocephin IV Qualifiers: Laterality: left Lung location: unspecified part of lung Pneumonia type: due to unspecified organism Qualified Code(s): J18.9 - Pneumonia, un specified organism (3) Hypertension: Assessment and Plan: continue losartan/hctz, diltazem Qualifiers: Hypertension type: primary hypertension Qualified Code(s): I10 - Essential (primary) hypertension (4) Anxiety: Assessment and Plan: continue as needed alprazolam (5) GERD (gastroesophageal reflux disease): Assessment and Plan: continue omeprazole Qualifiers: Esophagitis presence: esophagitis presence not specified Qualified Code(s): K21.9 - Gastro-esophageal reflux disease without esophagitis (6) Hyperlipemia: Assessment and Plan: continue statin Qualifiers: Hyperlipidemia type: unspecified Qualified Code(s): E78.5 - Hyperlipidemia, unspecified Plan patient is a full code continue Lovenox for DVT prophylaxis Still requiring 1-2 more days for hospital necessary care for her acute asthma exacerbation.
[2024-02-29] MEDS: LOSARTAN POTASSIUM 50 MG TABLET 100 MG PO (08:50)
[2024-02-29] MEDS: ATORVASTATIN CALCIUM 40 MG TABLET PO (08:50)
[2024-02-29] MEDS: CEFTRIAXONE 1,000 MG in 0.9 % SODIUM CHLORIDE 50 ML 100 MG IV (08:50)
[2024-02-29] MEDS: FLUOXETINE HCL 20 MG CAPSULE 40 MG PO (08:50)
[2024-02-29] MEDS: POTASSIUM CHLORIDE 10 MEQ ER TABLET 20 MEQ PO ×2 (08:50→20:43)
[2024-02-29] MEDS: HYDROCHLOROTHIAZIDE 25 MG TABLET PO (08:51)
[2024-02-29] MEDS: AZITHROMYCIN 500 MG in 0.9 % SODIUM CHLORIDE 250 ML 250 MG IV (09:38)
[2024-02-29] MEDS: BUDESONIDE 0.5 MG/2 ML AMPULE NEB IH ×2 (10:03→23:28)
--- NOTE | 2024-02-29 10:09 | REH.PTDLY ---
Physical Therapy Daily Note PT Daily Note/Assess Start: 02/29/24 09:48 Freq: Status: Active Protocol: Document 02/29/24 09:49 CHELY (Rec: 02/29/24 10:09 CHELY [id number]) Physical Therapy Daily Note/Assessment Time In 09:25 Time Out 09:45 Subjective Pt up walking out of restroom upon arrival. Agreeable to therapy. Therapeutic Exercise Minutes (minutes) 9 Therapeutic Exercise Units 1 Therapeutic Exercise Treatment Instructed in B LE seated exs 10x ea followed by standing exs 10x ea with UE support on bed rail. Cues for pt to focus on breathing to avoid shortness of breath. Therapeutic Activity Minutes (minutes) 8 Therapeutic Activity Units 0 Therapeutic Activity Comments Gait training with SC CGA 160 feet with mild SOB, but pt converses while ambulating. Cues when turning to do so slowly for safety. Cues with returning to sit to make sure pt feels chair behind her first as she starts to sit too soon. Pt performs sit to stand transfer from chair SBA. Total Therapy Minutes 17 Total Physical Therapy Units 1 Daily Note Summary Pt does well with standing exs today. Gait goes well with min cues when turning and sitting for safety. Some fatigue noted post visit, but no complaints of discomfort throughout.
[2024-02-29] MEDS: PANTOPRAZOLE SODIUM 40 MG VIAL IV (11:13)
[2024-02-29] MEDS: ENOXAPARIN SODIUM 40 MG/0.4 ML SYRINGE SUBQ (11:13)
--- NOTE | 2024-02-29 11:16 | CM.NOTE ---
Rounds made with Dr. Laughlin, pt continues with wheezing and SOB. No discharge today, discussed diagnostic and lab results with pt, and sister.
[2024-02-29] MEDS: CETIRIZINE HCL 10 MG TABLET PO (21:02)
[2024-03-01] VITALS (12 sets, daily range): BP systolic 112–127; BP diastolic 69–80; PULSE 98–120; TEMP 36.5–36.9; O2SAT 91–94
[2024-03-01] MEDS: METHYLPREDNISOLONE SOD SUCC PF 40 MG/ML VIAL IVP ×2 (02:47→08:30)
--- NOTE | 2024-03-01 03:16 | PC.NURSE ---
Patient came out of room looking for her socks and shoes. Reoriented to time of day.
[2024-03-01] MEDS: IPRATROPIUM/ALBUTEROL SULFATE 3 ML AMPUL.NEB IH ×2 (05:05→11:24)
[2024-03-01] MEDS: DILTIAZEM HCL 60 MG TABLET PO (05:20)
[2024-03-01 06:01] LABS: Basophils Percent Auto 0.1 % (0.2-2.0); Hematocrit 36.3 % (36.0-48.0); Hemoglobin 12.3 g/dL (12.0-16.0); Immature Granulocytes Abs Auto 0.15 10^3/uL (0.00-0.03); Immature Granulocytes Pct Auto 0.8 % (0.0-0.5); Lymphocytes Percent Auto 5.3 % (20.5-60.0); Mean Corpuscular HGB Conc 33.9 g/dL (29.9-35.2); Mean Corpuscular Hemoglobin 31.8 pg (26.7-34.0); Mean Corpuscular Volume 93.8 fL (81.0-99.0); Mean Platelet Volume 10.3 fL (9.5-13.5); Monocytes Absolute Auto 0.5 10^3/uL (0.3-0.8); Monocytes Percent Auto 2.6 % (1.7-12.0); Neutrophils Percent Auto 91.2 % (43.0-75.0); Platelet Count 246 10^3/uL (150-450); Red Blood Count 3.87 10^6/uL (4.20-5.40); Red Cell Distribution Width 12.1 % (11.0-15.0); White Blood Count 18.7 10^3/uL (4.0-11.0)
[2024-03-01 06:12] LABS: Magnesium 2.1 mg/dL (1.8-2.4)
[2024-03-01 06:18] LABS: Alanine Aminotransferase 22 U/L (14-59); Albumin Level 3.6 g/dL (3.4-5.0); Alkaline Phosphatase 83 U/L (46-116); Anion Gap 13.6; Aspartate Amino Transferase 21 U/L (15-37); Bilirubin Total 0.2 mg/dL (0.2-1.0); Chloride 99 mmol/L (98-107); Estimated GFR (African America >60 (>=60); Estimated GFR (Non-African Ame >60 (>=60); Globulin 3.6 g/dL; Glucose 141 mg/dL (74-106); Potassium 3.6 mmol/L (3.5-5.1); Sodium 135 mmol/L (136-145); Total Protein 7.2 g/dL (6.4-8.2)
--- NOTE | 2024-03-01 08:06 | PM.DS1 ---
DS: Providers Provider Date of admission: 02/28/24 10:22 Primary care physician: Shaheed Crow MD Attending physician on admission: Isabelle Laughlin Consults: 02/29/24 07:00 Occupational Therapy Eval and Treat Routine Reason for consultation: weakness and short of breath Has provider been notified: No Physical Therapy Eval and Treat Routine Reason for consultation: weakness and short of breath Discharging clinician: Isabelle Laughlin DS: Diagnosis Discharge Diagnosis (1) Asthma exacerbation: Qualifiers: Asthma persistence: persistent Asthma severity: moderate Qualified Code(s): J45.41 - Moderate persistent asthma with (acute) exacerbation (2) Pneumonia: Qualifiers: Laterality: left Lung location: unspecified part of lung Pneumonia type: due to unspecified organism Qualified Code(s): J18.9 - Pneumonia, unspecified organism (3) Hypertension: Qualifiers: Hypertension type: primary hypertension Qualified Code(s): I10 - Essential (primary) hypertension (4) Anxiety: (5) GERD (gastroesophageal reflux disease): Qualifiers: Esophagitis presence: esophagitis presence not specified Qualified Code(s): K21.9 - Gastro-esophageal reflux disease without esophagitis (6) Hyperlipemia: Qualifiers: Hyperlipidemia type: unspecified Qualified Code(s): E78.5 - Hyperlipidemia, unspecified DS: Summary Hospital Course Hospital Course: Patient is a 78 year old female with past medical history of allergic asthma, GERD, seasonal allergies, HTN, anxiety who presents today with shortness of breath and wheezing. She has tried nebulizer treatments 4-6 without relief so she came to the ER. She sees Dr. Mckinnon for her Asthma. Just seen him about a month ago. She is compliant with her medications. She also follows with [facility] cardiology for a heart murmur . Dr. Crow is her pcp. She denies any fevers or chills, and recent illnesses. Just says when it gets got and the pollen is floating is when her asthma is the worst. ER findings: WBC's 9.7. lactate 0.8, Chest X-ray: lingular infiltrates, negative Covid test; she was given solumedrol 125mg x 1, Azith and Rocephin and magnesium 2 grams. 2 duoneb treatments. For her Asthma exacerbation. duonebs q6 hours, PRN albuterol, already given Mag, Solumedrol 60mg q8 hours IV, monitor oxygen status and OPEP therapy. Will be discharged home with nebulizer treatments and Rx for new machine, she will benefit from nebulizer machine at home to help improve her asthma exacerbation and xopenex and ipratropium nebs q6 hours for the next 3 days. Community acquired Pneumonia, saturating well on room air, seen in lingular area on CXR; continue azithromycin IV and Rocephin IV. Will place on levaquin 500mg daily x 7 days as outpatient. She will have close follow up with her PCP and Exercise Planner. She may return to the ER with any worsening signs or symptoms. At the time of discharge she is able to hold a conversation without getting too short of breath, she has been ambulating well. Status at Discharge Overall status at discharge: patient is progressing back to baseline Time Spent with Patient Time attestation: Total time spent providing and/or coordinating discharge services: Time spent: greater than 30 minutes Exam Narrative Exam Narrative: General: Patient is alert, and oriented to person, place and time with normal affect, proper hygiene Skin: no visible rashes, or ulcers Head: atraumatic, acephalic Eyes: PERRLA, no nystagmus present, conjunctiva clear, no scleral icterus Ears: normal gross auditory acuity Heart: Normal rate and rhythm, no murmurs/rubs/gallops Lungs: audible wheezes but cleared by cough, no crackles and normal breath sounds all lung da silva Abdomen: Normal audible bowel sounds, no distension, No palpable masses, no organomegaly, no rebound/guarding/ or rigidity Musculoskeletal: no swelling bilateral lower extremities Neuro: CN II-X grossly intact Constitutional Vital Signs, click to edit/add: Last Vital Signs Temp 98.5 F 03/01/24 07:36 Pulse 107 H 03/01/24 07:36 Resp 16 03/01/24 07:36 BP 126/74 03/01/24 07:36 Pulse Ox 91 L 03/01/24 07:36 O2 Del Method Room Air 03/01/24 07:36 DS: Data Data Completed and Pending Labs on day of discharge: Labs from last 24 hours 03/01/24 05:33 WBC 18.7 H RBC 3.87 L Hgb 12.3 Hct 36.3 MCV 93.8 MCH 31.8 MCHC 33.9 RDW 12.1 Plt Count 246 MPV 10.3 Neut % (Auto) 91.2 H Lymph % (Auto) 5.3 L Bent % (Auto) 2.6 Eos % (Auto) 0.0 L Baso % (Auto) 0.1 L Neut # (Auto) 17.0 H Lymph # (Auto) 1.0 L Bent # (Auto) 0.5 Eos # (Auto) 0.0 Baso # (Auto) 0.0 Abs Immat Gran (auto) 0.15 H Imm/Tot Granulo (auto) 0.8 H Sodium 135 L Potassium 3.6 Chloride 99 Carbon Dioxide 26.0 Anion Gap 13.6 BUN 20.0 H Creatinine 0.77 Est GFR ( Amer) >60 Est GFR (Non-Af Amer) >60 BUN/Creatinine Ratio 26.0 Glucose 141 H Calcium 9.0 Magnesium 2.1 Total Bilirubin 0.2 AST 21 ALT 22 Alkaline Phosphatase 83 Total Protein 7.2 Albumin 3.6 Globulin 3.6 Albumin/Globulin Ratio 1.0 Discharge Plan Discharge Disposition: Home, Self-Care Discharge Medications: New ipratropium bromide 0.02 % solution 2.5 ml inhalation Q8H PRN (Reason: shortness of breath or wheezing) Qty: 75 0RF levalbuterol HCl 1.25 mg/3 mL solution for nebulization 1.25 mg inhalation Q8H PRN (Reason: shortness of breath or wheezing) Qty: 75 0RF prednisone 20 mg tablet 20 mg PO BID 7 Days Qty: 14 0RF Mucinex DM 30-600 mg tablet extended release 12 hr 1 tab PO DAILY Qty: 10 0RF levofloxacin 500 mg tablet 500 mg PO DAILY 7 Days Qty: 7 0RF Continued albuterol sulfate 90 mcg/actuation HFA aerosol inhaler 2 inh inhalation Q6H PRN (Reason: shortness of breath or wheezing) cyclobenzaprine 10 mg tablet 10 mg PO Q8H PRN (Reason: muscle spasm) Trelegy Ellipta 100-62.5-25 mcg blister with device 1 inh inhalation DAILY losartan-hydrochlorothiazide [Hyzaar] 100-25 mg tablet 1 tab PO DAILY omeprazole 40 mg capsule,delayed release(DR/EC) 40 mg PO DAILY rosuvastatin [Crestor] 10 mg tablet 10 mg PO DAILY potassium chloride 20 mEq tablet extended release 20 meq PO BID alprazolam 0.5 mg tablet 0.25 mg PO TID PRN (Reason: anxiety) diltiazem HCl 60 mg tablet 60 mg PO TID loratadine [Loradamed] 10 mg tablet 10 mg PO DAILY fluoxetine 40 mg capsule 40 mg PO DAILY Activity: increase activity as tolerated Diet: advance to your usual diet Print Language: Frisian Patient Instructions: Ipratropium (By breathing), Prednisone (By mouth), Levofloxacin (By mouth), Levalbuterol (By breathing) (Xopenex, Xopenex HFA, Xopenex Pediatric), Asthma (DC) Forms: Portal Instructions Follow Up Appointments: Dr Crow Mar 09, 2024 at 11:[address] Mckinnon's office will call you with an appt [phone] Discharge Date/Time: 03/01/24 12:34
[2024-03-01] MEDS: HYDROCHLOROTHIAZIDE 25 MG TABLET PO (09:19)
[2024-03-01] MEDS: LOSARTAN POTASSIUM 50 MG TABLET 100 MG PO (09:19)
[2024-03-01] MEDS: ATORVASTATIN CALCIUM 40 MG TABLET PO (09:19)
[2024-03-01] MEDS: CEFTRIAXONE 1,000 MG in 0.9 % SODIUM CHLORIDE 50 ML 100 MG IV (09:20)
[2024-03-01] MEDS: POTASSIUM CHLORIDE 10 MEQ ER TABLET 20 MEQ PO (09:20)
[2024-03-01] MEDS: FLUOXETINE HCL 20 MG CAPSULE 40 MG PO (09:20)
[2024-03-01] MEDS: AZITHROMYCIN 500 MG in 0.9 % SODIUM CHLORIDE 250 ML 250 MG IV (09:21)
[2024-03-01] MEDS: 0.9 % SODIUM CHLORIDE 250 ML 10 ML IV (09:21)
--- NOTE | 2024-03-01 09:43 | REH.PTDLY ---
Physical Therapy Daily Note PT Daily Note/Assess Start: 02/29/24 09:48 Freq: Status: Active Protocol: Document 03/01/24 09:37 CHELY (Rec: 03/01/24 09:43 [facility] [id number]) Physical Therapy Daily Note/Assessment Time In 09:00 Time Out 09:24 Subjective Pt in chair upon arrival and in a great mood. Ready to go home today pt states. Therapeutic Exercise Minutes (minutes) 9 Therapeutic Exercise Units 1 Therapeutic Exercise Treatment Instructed in B LE seated exs 10x ea with cues for pt to slow down with exs to avoid using momentum. Standing B LE exs with UE support 10x ea with marching, mini squats, hip flex, hip ext, HS curl and hip abd. Therapeutic Activity Minutes (minutes) 14 Therapeutic Activity Units 1 Chair Transfer Ability Independent Therapeutic Activity Comments Pt able to perform sit to stand transfers 5x in a row Ind. Adjusted SC to size and pt ambulated 225 feet SBA with mild SOB noted. Pt goes into restroom and then stands at sink for 5 mins while getting herself cleaned up. Cues needed with toilet transfer to use grab bar on wall when standing up. Able to doff and don new brief Ind. Gait back to chair to rest, nursing in room to give meds. Total Therapy Minutes 23 Total Physical Therapy Units 2 Daily Note Summary Progressed pt with gait and standing tolerance activities. Pt does well with standing exs too with no complaints of fatigue. Fitted pt's personal SC to her for height. Pt plans to return home with at [place]. Pt does seem a little confused at times during conversation, gets mixed up with the topic she is discussing.
--- NOTE | 2024-03-01 10:45 | CM.NOTE ---
Rounds made with Dr. Laughlin, discussed with pt discharge to home today. Dr. Laughlin also talked with pt about importance of f/u with Dr. Mckinnon and PCP. Pt requesting a new nebulizer machine for home. Dr. Laughlin will write script for pt to get new nebulizer machine and for inhalation medications. Seam Press Operator went down to Dr. Mckinnon's office for current medication list and discussed with Dr. Laughlin pt's previous medications for home nebulizer.
[2024-03-01] MEDS: ENOXAPARIN SODIUM 40 MG/0.4 ML SYRINGE SUBQ (11:19)
[2024-03-01] MEDS: BUDESONIDE 0.5 MG/2 ML AMPULE NEB IH (11:24)
--- NOTE | 2024-03-01 11:31 | SWNOTE1 ---
SW called [facility] and pt nor the has a nebulizer through them.
--- NOTE | 2024-03-01 11:44 | SWNOTE1 ---
NOHEMI called [facility] and back in 2021 they tried to get pt a new one, but she was eligible at that time. Pt was also out of network. NOHEMI asked if [employer] was in network and they voiced yes and that she is eligible for a new one. NOHEMI to send referral. Referral included demographic sheet, script, and dc summary with face to face.
--- NOTE | 2024-03-01 13:28 | SWNOTE1 ---
SW sent script, dc summary, and demographic sheet to [facility] for home nebulizer.
--- NOTE | 2024-03-01 15:03 | SWNOTE1 ---
NOHEMI called [facility] and they have referral, but need new demographic sheet, she stated the bottom half was cut off so they did not have the insurance information. NOHEMI re-faxed demographic sheet.
--- NOTE | 2024-03-02 10:23 | SWNOTE1 ---
SW called [facility] and hieu had documentation that the nebulizer was delivered and filled yesterday to the patient.
--- NOTE | 2024-03-02 13:23 | CM.DCFOLLOWU ---
1st attempt 03/02/24, no answer
--- OUTSIDE RECORDS SUMMARY | 2024-03-03 11:21 | XMS_ITS | CCD ---
Author Organization [facility] Care Team Providers Care Technical Manager [employer] Name Role Phone ADORE, DR MARIALUISA Anguiano [...] NADERER, DR SHAHEED Thomas Primary Care Unavailable CHAUNCEY, DR MARIALUISA Anguiano Attending Unavailable CHAUNCEY, DR MARIALUISA Anguiano Admitting Unavailable CHAUNCEY, DR MARIALUISA Anguiano Consulting Unavailable [facility] DR SHAHEED Thomas Primary Care Unavailable CHAUNCEY, DR MARIALUISA Anguiano Attending Unavailable WEST, DR MARIALUISA Anguiano Admitting Unavailable WEST, DR MARIALUISA Anguiano Consulting Unavailable [facility] DR SHAHEED Thomas Primary Care Unavailable CHAUNCEY, DR MARIALUISA Anguiano Attending Unavailable CHAUNCEY, DR MARIALUISA Anguiano Admitting Unavailable Shaheed De La Torre MD Primary Care Provider EVE ADAMS Attending Unavailable LEONIDAS PETERS Attending Unavailable NADERER, SHAHEED Attending Unavailable NADERER, SHAHEED Attending Unavailable NADERER, SHAHEED Attending Unavailable NADERER, SHAHEED Attending Unavailable Allergies Allergy Classification Reported Allergen(s) Allergy Type Date of Onset Reaction(s) Facility (1 source) Albuterol Drug Allergy [facility] Repository (1 source) Penicillin Drug Allergy [facility] Repository (3 sources) Albuterol Drug Allergy 9 Palpitations [facility] (3 sources) Cephalosporins (Antibiotic) Drug Allergy 3 Diarrhea, GI intolerance [facility] (4 sources) Penicillins; Translations: [PENICILLINS] Drug Allergy 8 GI intolerance [facility] (3 sources) cefdinir; Translations: [CEFDINIR] Drug Allergy 1 Diarrhea, GI intolerance [facility] (1 source) Albuterol; Translations: [ALBUTEROL SULFATE] Drug Allergy 9 [facility] Repository Medications Current Medications Medication Drug Class(es) Dates Sig (Normalized) Sig (Original) ALPRAZolam 0.5 mg oral tablet (3 sources) Benzodiazepine Start: 4 End: 4 take 0.5 tablet by mouth three times daily as needed for anxiety ALPRAZolam (Xanax) 0.5 MG tablet Indications: LAUREL (generalized anxiety disorder) ([facility]) Take 0.5 tablets (0.25 mg) by mouth [...] powder (3 sources) Polyene Antifungal nystatin (Mycostatin) 224945 UNIT/GM powder Apply 1 application topically in [...] 06-10-2023 Chronic Other aftercare (1 source) Other vermin exterminator (current) drug therapy; Translations: [OTH ESCALATOR MECHANIC CURRENT DRUG THERAPY] Onset: 3 Episodic Other aftercare (4 sources) Patient encounter status; Translations: [Other prison (current) drug therapy] Onset: 4 08-19-2023 Episodic [...] Range Facility Office Visiton 08-23-2023 Follow-up visit [id number] Pankaj Napier 1945 F Date Provider Department Center 08/23/2023 [facility]nn-[facility]E [facility] Family History Problem Relation Age of Onset Coronary artery disease Mother Coronary artery disease Brother Family Status - Relation Status Age at Mother Brother Level of Service:83070 [place] OFFICE/OUTPATIENT ESTABLISHED LOW MDM 20 MIN Normal [facility] MG MAMM SCREEN 3D SHARLENE CADon 09-24-2022 MG MAMM SCREEN 3D SHARLENE CAD Patient: KOLTON NAPIER Exam Date: 09/24/2022 : 1945 Gender:F Ordering : DR SHAHEED DE LA TORRE . Admission #: [id number] Family : Order #: [id number] CLICK HERE TO VIEW EXAM RADIOLOGY REPORT [...] stomach cancer at age 80. LOCATION: [facility] BREAST COMPOSITION: Scattered areas fibroglandular density. [...] M.D. on 09/25/2022 at 07:08 Normal [facility] Office Visiton 08-31-2022 Follow-up visit [id number] Pankaj Napier 1945 F Date Provider Department Center 08/31/2022 [id number] PETERS [facility] Family History Problem Relation Age of Onset Coronary artery disease Mother Coronary artery disease Brother Family Status - Relation Status Age at Mother Brother Level of Service:95580 [place] OFFICE/OUTPATIENT ESTABLISHED MOD MDM 30-39 MIN Reason for Visit and Comments: Follow-up [367707] - 1 yr follow up Normal [facility] CBC AUTO DIFFon 07-17-2022 BASO # 0.1 103/ul Normal 0.0-0.1 [facility] Comment on above: Performed By: #### C BC ####[facility] [address] [place] [id number]. Fidencio Walker Basophils/100 WBC (Bld) 0.8 % Normal 0.2-2.0 [facility] Comment on above: Performed By: #### C BC ####[facility] [address] [place], [place] [address]Eb. Fidencio Walker EO # 0.4 103/ul Normal 0.0-0.7 [facility] Comment on above: Performed By: #### C BC ####[facility] [address] [place], [place] [address]Hm. Fidencio Walker Eosinophils/100 WBC (Bld) 4.7 % Normal 0.9-7.0 [facility] Comment on above: Performed By: #### C BC ####[facility] [address] [place] [address]Dr. Fidencio Walker Erythrocyte distribution width (RBC) [Ratio] 13.0 % Normal 11.0-15.0 [facility] Comment on above: Performed By: #### C BC ####[facility] [address] [place], [place] [address]Dr. Fidencio Walker Hematocrit (Bld) [Volume fraction] 43.0 % Normal 36.0-48.0 [facility] Comment on above: Performed By: #### C BC ####[facility] [address] [place], [place] [address]Dr. Fidencio Walker Hemoglobin (Bld) [Mass/Vol] 13.1 g/dL Normal 12.0-16.0 [facility] Comment on above: Performed By: #### C BC ####[facility] [address] [place], [place] [address]Dr. Fidencio Walker IG # 0.02 10e3/ul Normal 0.00-0.03 [facility] Comment on above: Performed By: #### C BC ####[facility] C[address] [place], [place] [address]Dr. Fidencio Walker IG % 0.3 % Normal 0.0-0.5 [facility] Comment on above: Performed By: #### C BC ####[facility] [address] [place], [place] [address]Dr. Fidencio Walker LYMPH # 2.2 103/ul Normal 1.2-3.8 [facility] Comment on above: Performed By: #### C BC ####[facility] [address] [place], [place] [address]Dr. Fidencio Walker Lymphocytes/100 WBC (Bld) 28.7 % Normal 20.5-60.0 [facility] Comment on above: Performed By: #### C BC ####[facility] [address] [place], [place] [address]Dr. Fidencio Walker MANUAL DIFF REQ NO Normal [facility] Comment on above: Performed By: #### C BC ####[facility] [address] [place] [address]Dr. Fidencio Walker MCH (RBC) [Entitic mass] 30.9 pg Normal 26.7-34.0 [facility] Comment on above: Performed By: #### C BC ####[facility] [address] [place] [address]Dr. Fidencio Walker MCHC (RBC) [Mass/Vol] 30.5 g/dL Normal 29.9-35.2 [facility] Comment on above: Performed By: #### C BC ####[facility] [address] [place] [address]Dr. Fidencio Aaron MCV (RBC) [Entitic vol] 101.4 fL Critically high 81.0-99.0 [facility] Comment on above: Performed By: #### C BC ####[facility] Idw[address] [place], [place] [address]Dr. Fidencio Walker MONO # 0.5 103/ul Normal 0.3-0.8 [facility] Comment on above: Performed By: #### C BC ####[facility] Q[address] [place], [place] [address]Dr. Galileanickolas Walker Monocytes/100 WBC (Bld) 7.1 % Normal 1.7-12.0 [facility] Comment on above: Performed By: #### C BC ####[facility] [address] [place], [place] [address]Dr. Fidencio Aaron NEUT # 4.4 103/ul Normal 1.4-6.5 [facility] Comment on above: Performed By: #### C BC ####[facility] [address] [place], [place] [address]Dr. Galileanickolas Walker Neutrophils/100 WBC (Bld) 58.4 % Normal 43.0-75.0 [facility] Comment on above: Performed By: #### C BC ####[facility] [address] [place], [place] [address]Dr. Fidencio Walker Platelet mean volume (Bld) [Entitic vol] 10.8 fL Normal 9.5-13.5 The [facility] Comment on above: Performed By: #### C BC ####[facility] [address] [place] [address]Dr. Fidencio Walker PLT 200 103/ul Normal 150-450 [facility] Comment on above: Performed By: #### C BC ####[facility] [address] [place], [place] [address]Vf. Fidencio Walker RBC 4.24 106/ul Normal 4.20-5.40 [facility] Comment on above: Performed By: #### C BC ####[facility] [address] [place] [address]Dr. Fidencio Walker WBC 7.5 103/ul Normal 4.0-11.0 [facility] Comment on above: Performed By: #### C BC ####[facility] [address] [place] [address]Dr. Fidencio Walker LIPID PROFILEon 07-17-2022 CHOL-HDL RATIO NORM SEE BELOW Normal [facility] Comment on above: Result Comment: 3.3 - 4.4 LOW RISK 4.4 - 7.1 AVERAGE RISK 7.1 - 11.0 MODERATE RISK >11.0 HIGH RISK Performed By: #### L IPID, LIVER, BMP ####[facility] [address] [place] [address]Dr. Fidencio Walker Cholesterol [Mass/Vol] 134 mg/dL Normal <=200 [facility] Comment on above: Performed By: #### L IPID, LIVER, BMP ####[facility] [address] [place] [address]Dr. Fidencio Walker Cholesterol in HDL [Mass/Vol] 57 mg/dL Normal 40-60 [facility] Comment on above: Performed By: #### L IPID, LIVER, BMP ####[facility] [address] [place] [address]Dr. Fidencio Walker Cholesterol in LDL [Mass/Vol] 59.6 mg/dL Normal [facility] Comment on above: Performed By: #### L IPID, LIVER, BMP ####[facility] [address] [place] [address]Dr. Fidencio Walker Cholesterol.total/Ch olesterol in HDL [Mass ratio] 2.4 {ratio} Normal [facility] Comment on above: Performed By: #### L IPID, LIVER, BMP ####[facility] [address] [place] [address]Dr. Galileanickolas Aaron HDL NORMAL > or = 60 mg/dl - LO W CARDIOVASCULAR RISK <40 mg/dl - HIGH CARDIOVASCULAR RISK Normal [facility] Comment on above: Performed By: #### L IPID, LIVER, BMP ####[facility] [address] [place] [address]Dr. Fidencio Walker LDL CALC NORMAL SEE BELOW Normal [facility] Comment on above: Result Comment: <100 mg/dl OPTIMAL 100 - 129 mg/dl NEAR OR ABOVE OPTIMAL 130 - 159 mg/dl BORDERLINE HIGH 160 - 189 mg/dl HIGH >190 mg/dl VERY HIGH Performed By: #### L IPID, LIVER, BMP ####[facility] [address] [place] [address]Dr. Fidencio Walker Triglyceride [Mass/Vol] 87 mg/dL Normal <=150 [facility] Comment on above: Performed By: #### L IPID, LIVER, BMP ####[facility] [address] [place], [place] [address]Dr. Fidencio Walker VLDL CALC 17.4 mg/dL Normal [facility] Comment on above: Performed By: #### L IPID, LIVER, BMP ####[facility] [address] [place] [address]Dr. Galileanickolas Aaron LIVER PROFILEon 07-17-2022 Albumin [Mass/Vol] 3.7 g/dL Normal 3.4-5.0 [facility] Comment on above: Performed By: #### L IPID, LIVER, BMP ####[facility] [address] [place] [address]Dr. Fidencio Walker Albumin/Globulin [Mass ratio] 1.0 {ratio} Normal [facility] Comment on above: Performed By: #### L IPID, LIVER, BMP ####[facility] [address] [place] [address]Dr. Fidencio Walker ALP [Catalytic activity/Vol] 58 U/L Normal 46-116 [facility] Comment on above: Performed By: #### L IPID, LIVER, BMP ####[facility] [address] [place] [address]Dr. Fidencio Walker ALT [Catalytic activity/Vol] 13 U/L Critically low 14-59 [facility] Comment on above: Performed By: #### L IPID, LIVER, BMP ####[facility] [address] [place] [address]Dr. Fidencio Walker AST [Catalytic activity/Vol] 18 U/L Normal 15-37 [facility] Comment on above: Performed By: #### L IPID, LIVER, BMP ####[facility] [address] [place] [address]Dr. Fidencio Walker BILI, CONJUGATED 0.1 mg/dL Normal 0.0-0.2 [facility] Comment on above: Performed By: #### L IPID, LIVER, BMP ####[facility] [address] [place] [address]Dr. Fidencio Walker Bilirubin [Mass/Vol] 0.3 mg/dL Normal 0.2-1.0 [facility] Comment on above: Performed By: #### L IPID, LIVER, BMP ####[facility] [address] [place] [address]Dr. Fidencio Walker Globulin (S) [Mass/Vol] 3.6 g/dL Normal [facility] Comment on above: Performed By: #### L IPID, LIVER, BMP ####[facility] [address] [place] [address]Dr. Fidencio Walker Protein [Mass/Vol] 7.3 g/dL Normal 6.4-8.2 [facility] Comment on above: Performed By: #### L IPID, LIVER, BMP ####[facility] [address] [place] [address]Dr. Fidencio Walker PROF CHEM 8 (BAS METB)on Anion gap [Moles/Vol] 11.3 mmol/L Normal [facility] Comment on above: Performed By: #### L IPID, LIVER, BMP ####[facility] [address] [place] [address]Dr. Fidencio Walker Calcium [Mass/Vol] 9.2 mg/dL Normal 8.5-10.1 [facility] Comment on above: Performed By: #### L IPID, LIVER, BMP ####[facility] [address] [place] [address]Dr. Fidencio Walker Chloride [Moles/Vol] 102 mmol/L Normal 98-107 [facility] Comment on above: Performed By: #### L IPID, LIVER, BMP ####[facility] [address] [place] [address]Dr. Fidencio Walker CO2 [Moles/Vol] 29.5 mmol/L Normal 21.0-32.0 [facility] Comment on above: Performed By: #### L IPID, LIVER, BMP ####[facility] [address] [place], [place] [address]Dr. Fidencio Walker Creatinine [Mass/Vol] 0.92 mg/dL Normal 0.55-1.02 [facility] Comment on above: Performed By: #### L IPID, LIVER, BMP ####[facility] [address] [place] [address]Dr. Fidencio Walker EGFR-AF [place] >60 Normal >=60 [facility] Comment on above: Result Comment: Prev iously reported as: (blank) On 07/17/2022 13:28 By AJR Performed By: #### L IPID, LIVER, BMP ####[facility] [address] [place] [address]Dr. Fidencio Walker EGFR-NON AF [place] 59 mL/min/1.73m2 Critically low >=60 [facility] Comment on above: Result Comment: Prev iously reported as: (blank) On 07/17/2022 13:28 By AJR Performed By: #### L IPID, LIVER, BMP ####[facility] [address] [place] [address]Dr. Fidencio Walker Glucose [Mass/Vol] 98 mg/dL Normal 74-106 [facility] Comment on above: Performed By: #### L IPID, LIVER, BMP ####[facility] [address] [place] [address]Dr. Fidencio Walker Potassium [Moles/Vol] 3.8 mmol/L Normal 3.5-5.1 [facility] Comment on above: Performed By: #### L IPID, LIVER, BMP ####[facility] [address] [place] [address]Dr. Fidencio Walker Sodium [Moles/Vol] 139 mmol/L Normal 136-145 [facility] Comment on above: Performed By: #### L IPID, LIVER, BMP ####[facility] [address] [place] [address]Dr. Fidencio Walker Urea nitrogen [Mass/Vol] 19.0 mg/dL Critically high 7.0-18.0 [facility] Comment on above: Performed By: #### L IPID, LIVER, BMP ####[facility] [address] [place] [address]Dr. Fidencio Walker Urea nitrogen/Creatinine [Mass ratio] 20.7 mg/mg Normal [facility] Comment on above: Performed By: #### L IPID, LIVER, BMP ####[facility] [address] [place] [address]Dr. Fidencio Walker VC INJ SCL BERTA BILINGUAL LOAN PROCESSOR VEINSon 1 VC INJ SCL BERTA BILINGUAL LOAN PROCESSOR VEINS Patient: KOLTON NAPIER Exam Date: 04/16/2022 : 1945 Gender:F Ordering : DR MARIALUISA AVITIA M.D. Admission #: [id number] Family : Order #: [id number] CLICK HERE TO VIEW EXAM RADIOLOGY REPORT PROCEDURE: VEIN CENTER INJECTION SCLEROSING SOLUTION MULTIPLE VEINS SAME COMPARISON: VC INJ SCL BERTA BILINGUAL LOAN PROCESSOR VEINS, 04/02/2022. VC INJ SCL BERTA BILINGUAL LOAN PROCESSOR VEINS, 03/24/2022. INDICATIONS: Pain co-occurrent and due [...] Avitia MD on 04/16/2022 at 14:34 Normal [facility] VC INJ SCL BERTA BILINGUAL LOAN PROCESSOR VEINSon 0 04-02-2022 VC INJ SCL BERTA BILINGUAL LOAN PROCESSOR VEINS Patient: KOLTON NAPIER Exam Date: 04/02/2022 : 1945 Gender:F Ordering : DR MARIALUISA AVITIA M.D. Admission #: [id number] Family : Order #: [id number] CLICK HERE TO VIEW EXAM RADIOLOGY REPORT PROCEDURE: VEIN CENTER INJECTION SCLEROSING SOLUTION MULTIPLE VEINS SAME COMPARISON: VC INJ SCL BERTA BILINGUAL LOAN PROCESSOR VEINS, 03/24/2022. INDICATIONS: Pain co-occurrent and due [...] Vaughan M.D. on 04/02/2022 at 15:47 Normal [facility] VC INJ SCL BERTA BILINGUAL LOAN PROCESSOR VEINSon 0 03-24-2022 VC INJ SCL BERTA BILINGUAL LOAN PROCESSOR VEINS Patient: KOLTON NAPIER. Exam Date: 03/24/2022 : 1945 Gender:F Ordering : DR MARIALUISA AVITIA M.D. Admission #: [id number] Family : Order #: [id number] CLICK HERE TO VIEW EXAM RADIOLOGY REPORT PROCEDURE: VEIN CENTER INJECTION SCLEROSING SOLUTION MULTIPLE VEINS SAME COMPARISON: VC INJ SCL BERTA BILINGUAL LOAN PROCESSOR VEINS, 03/19/2022. VC INJ SCL BERTA BILINGUAL LOAN PROCESSOR VEINS, 03/10/2022. INDICATIONS: Pain co-occurrent and due [...] Marialuisa Avitia MD on 03/24/2022 at 13:41 [facility] VC INJ SCL BERTA BILINGUAL LOAN PROCESSOR VEINSon 0 03-19-2022 VC INJ SCL BERTA BILINGUAL LOAN PROCESSOR VEINS Patient: KOLTON NAPIER. Exam Date: 03/19/2022 : 1945 Gender:F Ordering : DR MARIALUISA AVITIA M.D. Admission #: [id number] Family : Order #: [id number] CLICK HERE TO VIEW EXAM RADIOLOGY REPORT PROCEDURE: VEIN CENTER INJECTION SCLEROSING SOLUTION MULTIPLE VEINS SAME COMPARISON: VC INJ SCL BERTA BILINGUAL LOAN PROCESSOR VEINS, 03/10/2022. VC INJ SCL BERTA BILINGUAL LOAN PROCESSOR VEINS, 03/03/2022. INDICATIONS: Pain co-occurrent and due [...] Avitia MD on 03/19/2022 at 15:13 Normal [facility] VC INJ SCL BERTA BILINGUAL LOAN PROCESSOR VEINSon 0 03-10-2022 VC INJ SCL BERTA BILINGUAL LOAN PROCESSOR VEINS Patient: KOLTON NAPIER. Exam Date: 03/10/2022 : 1945 Gender:F Ordering : DR MARIALUISA AVITIA M.D. Admission #: [id number] Family : Order #: [id number] CLICK HERE TO VIEW EXAM RADIOLOGY REPORT PROCEDURE: VEIN CENTER INJECTION SCLEROSING SOLUTION MULTIPLE VEINS SAME COMPARISON: VC INJ SCL BERTA BILINGUAL LOAN PROCESSOR VEINS, 03/03/2022. INDICATIONS: Pain co-occurrent and due [...] Avitia MD on 03/10/2022 at 14:38 Normal [facility] VC INJ SCL BERTA BILINGUAL LOAN PROCESSOR VEINSon 0 03-03-2022 VC INJ SCL BERTA BILINGUAL LOAN PROCESSOR VEINS Patient: KOLTON NAPIER. Exam Date: 03/03/2022 : 1945 Gender:F Ordering : DR MARIALUISA AVITIA M.D. Admission #: [id number] Family : Order #: [id number] CLICK HERE TO VIEW EXAM RADIOLOGY REPORT [...] Avitia MD on 03/03/2022 at 15:25 Normal [facility] VC CONSULT FOLLOWUPon 2021 VC CONSULT FOLLOWUP Patient: CARTER NAPIER Exam Date: 02/25/2022 : 1945 Gender:F Ordering : DR MARIALUISA AVITIA M.D. Admission #: [id number] Family : Order #: [id number] CLICK HERE TO VIEW EXAM RADIOLOGY REPORT [...] Vaughan M.D. on 02/25/2022 at 15:41 Normal [facility] VC EXT VENOUS RT LIMITEDon 0 02-25-2022 VC EXT VENOUS RT LIMITED Patient: KOLTON NAPIER. Exam Date: 02/25/2022 : 1945 Gender:F Ordering : DR MARIALUISA AVITIA M.D. Admission #: [id number] Family : Order #: [id number] CLICK HERE TO VIEW EXAM RADIOLOGY REPORT [...] Vaughan M.D. on 02/25/2022 at 15:39 Normal [facility] VC INJ FOAM SCLERO W US MLTI on 02-19-2022 VC INJ FOAM SCLERO W US MLTI Patient: KOLTON NAPIER. Exam Date: 02/19/2022 : 1945 Gender:F Ordering : DR MARIALUISA AVITIA M.D. Admission #: [id number] Family : Order #: [id number] CLICK HERE TO VIEW EXAM RADIOLOGY REPORT [...] Vaughan M.D. on 02/20/2022 at 09:07 Normal [facility] VC CONSULT FOLLOWUPon 2021 VC CONSULT FOLLOWUP Patient: CARTER NAPIER GALILEA MarthaNeal Exam Date: 02/10/2022 : 1945 Gender:F Ordering : DR MARIALUISA AVITIA M.D. Admission #: [id number] Family : Order #: [id number] CLICK HERE TO VIEW EXAM RADIOLOGY REPORT [...] Avitia MD on 02/10/2022 at 14:56 Normal [facility] VC EXT VENOUS RT LIMITEDon 0 02-10-2022 VC EXT VENOUS RT LIMITED Patient: KOLTON NAPIER Exam Date: 02/10/2022 : 1945 Gender:F Ordering : DR MARIALUISA AVITIA M.D. Admission #: [id number] Family : Order #: [id number] CLICK HERE TO VIEW EXAM RADIOLOGY REPORT [...] Avitia MD on 02/10/2022 at 14:38 Normal [facility] VC ENDOVENOUS ABL 1ST V RTon 02-03-2022 VC ENDOVENOUS ABL 1ST V RT Patient: KOLTON NAPIER Exam Date: 02/03/2022 : 1945 Gender:F Ordering : DR MARIALUISA AVITIA M.D. Admission #: [id number] Family : Order #: [id number] CLICK HERE TO VIEW EXAM RADIOLOGY REPORT [...] Vaughan M.D. on 02/03/2022 at 14:01 Normal [facility] VC COMP CONSULTATIONon 01-22 VC COMP CONSULTATION Patient: DO HERI NAPIER Exam Date: 01/22/2022 : 1945 Gender:F Ordering : DR MARIALUISA AVITIA M.D. Admission #: [id number] Family : Order #: [id number] CLICK HERE TO VIEW EXAM RADIOLOGY REPORT [...] Avitia MD on 01/22/2022 at 14:56 Normal [facility] VC VENOUS REFLUX SHARLENE LMTon 0 01-22-2022 VC VENOUS REFLUX SHARLENE LMT Patient: KLOTON NAPIER Exam Date: 01/22/2022 : 1945 Gender:F Ordering : DR MARIALUISA AVITIA M.D. Admission #: [id number] Family : Order #: [id number] CLICK HERE TO VIEW EXAM RADIOLOGY REPORT [...] chronic thrombus visualized Compressibility: Normal Flow: Normal Senior Investigator: Dist/med calf 2.7mm with 0s. Mid/med calf [...] Flow: 1.2s of reflux in popliteal vein Senior Investigator: Dist/med calf 4.7mm with 0s reflux. Tech [...] Avitia MD on 01/22/2022 at 14:18 Normal [facility] OBSOLETEon 05-15-2019 OBSOLETE Refill (KAROL) KOLTON NAPIER ([id number]) 1945 F Date Time Provider Department 05/15/19 JAMES JOHNSON During your visit today, we recorded the following information about you: Maribel Osorio Self Contained Behavior Unit Teacher II 05/16/2019 4:42 PM Signed Call from pharmacy requesting refill. Pending Prescriptions Disp Refills DILTIAZEM 30 MG TABLET 270 tablet 1 Sig: TAKE ONE TABLET BY MOUTH THREE TIMES A DAY FLORENCIA: Yes Patient last seen 05/30/18 Maribel Osorio Self Contained Behavior Unit Teacher II Allergies As of Date: 05/15/2019 Noted [...] Status:Closed by JAMES JOHNSON MD on 05/20/19 [facility] CNOVon 05-30-2018 CNOV Office Visit (CARDMN ) NAPIERKOLTON ([id number]) 1945 F Date Time Provider Department 05/30/18 2:00 PM JAMES JOHNSON During your visit today, we recorded the following information about you: Pulse Blood pressure Weight Height 114/minute 140/78 73.9 kg 1.626 m James Johnson MD, MD 05/30/2018 5:53 PM Signed [facility] [place] Demond Carpenter Department of Cardiovascular Medicine SECTION OF CARDIAC PACING and ELECTROPHYSIOLOGY OUTPATIENT VISIT DATE May 30, 2018 OUTPATIENT VISIT TYPE NEW PRIMARY CARE PHYSICIAN: Shaheed De La Torre MD ([facility]) [address] [place] [address] IMPRESSION/PLAN: The patient is very pleasant female [...] ECG today: Sinus tachycardia at 114 bpm. AK 154 ms, QRS 86 ms, QTC 460 ms. FOLLOW UP: Return in about 4 months (around 09/27/2018). This note was created using computerized sole skiver software and may therefore include some sole skiver errors including errors in gender and inappropriate words or phrases. I reviewed old records, obtained relevant HPI and PMH from the pt, examined the patient and created the above report. James Johnson MD May 30, 2018 Note to: Shaheed De La Torre MD ([facility]) [address] [place] [address] James Johnson MD, 05/30/2018 3:19 PM Signed If symptoms not improving in 7-10 days on low dose diltiazem, call. Referring Provider: REFERRAL, NO(HIST) [[id number]] Allergies As of Date: 05/30/2018 Noted Allergy [...] and Disposition History Recorded Encounter Status:Closed by JAMSE JOHNSON MD on 05/30/18 Normal [facility] ECG COMPLETE W INTERPRETATIO Non 05-30-2018 ECG COMPLETE W INTERPRETATION NAME : KOLTON NAPIER PID : [id number] : 1945 Gender : Female Race : ORD : [id number] Procedure Date : May 30 2018 13:36:13 Edit Date : May 31 2018 13:51:33 Diagnosis:SINUS TACHYCARDIA WITH PREMATURE ATRIAL COMPLEXES OTHERWISE NORMAL ECG Confirmed by MD YAN TAMANNA ([id number]) on 05/31/2018 1:51:26 PM Ventricular Rate : 114 BPM Atrial Rate : 114 BPM P-R Interval : 154 ms QRS Duration : 86 ms Q-T Interval : 334 ms QTC Calculation(Bezet) : 460 ms P [place] : 37 degrees R [place] : 30 degrees T [place] : 46 degrees Test Reason : Location : 314 : [facility] Overread By : MD YAN TAMANNA Edited By : MD YAN TAMANNA Referred By : JAMES JOHNSON Acquired by : BHUMIKA SANCHEZ [facility] PROGRESSon 05-30-2018 PROGRESS HNO ID: [id number] Author: James Johnson MD Service: (none) Author Type: Physician Type: Progress Notes Filed: 05/30/2018 5:53 PM Note Text: [facility] Department of Cardiovascular Medicine SECTION OF CARDIAC PACING and ELECTROPHYSIOLOGY OUTPATIENT VISIT DATE May 30, 2018 OUTPATIENT VISIT TYPE NEW PRIMARY CARE PHYSICIAN: Shaheed De La Torre MD ([facility]) [address] [place] [address] IMPRESSION/PLAN: The patient is very pleasant female [...] ECG today: Sinus tachycardia at 114 bpm. AK 154 ms, QRS 86 ms, QTC 460 ms. FOLLOW UP: Return in about 4 months (around 09/27/2018). This note was created using computerized sole skiver software and may therefore include some sole skiver errors including errors in gender and inappropriate words or phrases. I reviewed old records, obtained relevant HPI and PMH from the pt, examined the patient and created the above report. James Johnson MD May 30, 2018 Note to: Shaheed De La Torre MD ([facility]) [address] [place] [address] Normal [facility] Vital Signs Date Time Vital Sign Value Performing Clinician Faci lity 08-19-2023 14:36-0500 Body height 162.6 cm Shaheed De La Torre MD Work Phone: [facility] 08-19-2023 14:36-0500 Body mass index (BMI) [Ratio] 26.09 kg/m2 Shaheed De La Torre MD Work Phone: [facility] 08-19-2023 14:36-0500 Body temperature 98.1 [degF] Shaheed De La Torre MD Work Phone: [facility] 08-19-2023 14:36-0500 Body weight 68.95 kg Shaheed De La Torre MD Work Phone: [facility] 08-19-2023 14:36-0500 Diastolic blood pressure 70 mm[Hg] Shaheed De La Torre MD Work Phone: [facility] 08-19-2023 14:36-0500 Heart rate 71 /min Shaheed De La Torre MD Work Phone: [facility] 08-19-2023 14:36-0500 SaO2% (BldA) [Mass fraction] 98 % Shaheed De La Torre MD Work Phone: [facility] 08-19-2023 14:36-0500 Systolic blood pressure 108 mm[Hg] Shaheed De La Torre MD Work Phone: [facility] Healthcare Encounters Encounter Date Encounter Type Care Provider Facility Start: 02-17-2024 End: 02-17-2024 ambulatory SHAHEED DE LA TORRE Not Available Start: 09-15-2023 End: 09-15-2023 ambulatory SHAHEED DE LA TORRE Not Available Start: 08-23-2023 End: 08-23-2023 ambulatory [facility] Start: 08-19-2023 End: 08-19-2023 Office outpatient visit 25 minutes Shaheed De La Torre MD Work Phone: [facility] Comment on above: Benign essential hyp ertension (CMS/HCC) (Primary Dx); LAUREL (generalized anxiety disorder) (CMS/HCC); Lumbosacral spinal stenosis; Seasonal allergic rhinitis due to pollen; GERD without esophagitis; Dyslipidemia (CMS/HCC); Encounter for long-term (current) use of medications; MDD (major depressive disorder), recurrent episode, mild (HCC) (CMS/HCC) Start: 08-19-2023 End: 08-19-2023 ambulatory SHAHEED DE LA TRORE Not Available Start: 08-19-2023 Bamboo flowsheet Shaheed De La Torre MD Work Phone: [facility] Start: 08-19-2023 Bamboo flowsheet Shaheed De La Torre MD Work Phone: [facility] Start: 06-10-2023 End: 06-10-2023 ambulatory SHAHEED DE LA TORRE Not Available Start: 09-24-2022 End: 09-25-[address] NOAH VAUGHAN Facility: Start: 08-31-2022 End: 08-31-2022 ambulatory [facility] Start: 07-17-2022 End: 07-18-[address] SHAHEED DE LA TORRE Facility:[facility] Start: 04-16-2022 End: 04-17-[address] MARIALUISA AVITIA Facility:[facility] Start: 04-02-2022 End: 04-03-[address] MARIALUISA AVITIA Facility:[facility] Start: 03-24-2022 End: 03-25-[address] MARIALUISA AVITIA Facility:[facility] Start: 03-19-2022 End: 03-20-[address] MARIALUISA AVITIA Facility:[facility] Start: 03-10-2022 End: 03-11-[address] MARIALUISA AVITIA Facility:[facility] Start: 03-03-2022 End: 03-04-[address] MARIALUIAS AVITIA Facility:[facility] Start: 02-25-2022 End: 02-26-2022 ambulatory [...] Visit [facility] [address] [place] [address] Shaheed De La Torre MD [address] [place] [address] Arrived [facility] Comment on above: [...] of medications Expected: 08/19/2023 (Approximate), Expires: 08/19/2024 [facility] Comment on above: Expected: 08/19/2023 (Approximate), Expires: 08/19/2024 Start: 08-19-2023 End: 08-19-2024 Hepatic function 2000 panel - Serum or Plasma Hepatic function panel Lab Routine Encounter for long-term (current) use of medications Expected: 08/19/2023 (Approximate), Expires: 08/19/2024 [facility] Comment on above: Expected: 08/19/2023 (Approximate), Expires: 08/19/2024 Start: 08-19-2023 End: 08-19-2024 Lipid 1996 panel - Serum or Plasma Lipid panel Lab Routine Dyslipidemia (CMS/HCC) Expected: 08/19/2023 (Approximate), Expires: 08/19/2024 [facility] Comment on above: Expected: 08/19/2023 (Approximate), Expires: 08/19/2024 Start: 1945 Medicare Annual Wellness (AWV) Medicare Annual Wellness (AWV) [facility] Healthcare Payers Date Payer Category Payer Medicare AETNA MEDICARE A DVANTAGE AETNA MEDICARE REPLACEMENT [id number] 2022-Present [address] [place] [address] [id number] 1959 Medicare [id number] 1945 Unknown [id number] 1945 Unknown [id number] 2.16.840.1.991730.3.579.2.593 1945 Unknown [id number] 2.16.840.1.518905.3.579.2.593 1945 Unknown [id number] 2.16.840.1.351032.3.579.2.593 1945 Unknown [id number] 2.16.840.1.445901.3.579.2.593 1945 Unknown [id number] 2.16.840.1.997661.3.579.2.593 1945 Unknown [id number] 2.16.840.1.900051.3.579.2.593 1945 Unknown [id number] 2.16.840.1.421034.3.579.2.593 1945 Unknown [id number] 2.16.840.1.116253.3.579.2.593 1945 Unknown [id number] 2.16.840.1.558596.3.579.2.593 1945 Unknown [id number] 2.16.840.1.883148.3.579.2.593 1945 Unknown [id number] 2.16.840.1.017762.3.579.2.593 1945 Unknown [id number] 2.16.840.1.377496.3.579.2.593 1945 Unknown [id number] 2.16.840.1.980833.3.579.2.1259 1945 Unknown [id number] 2.16.840.1.076120.3.579.2.1259 1945 Unknown [id number] 2.16.840.1.331274.3.579.2.1259 1945 Unknown [id number] 2.16.840.1.456273.3.579.2.1259 Social History Date Type Detail Facility Start: 06-10-2023 End: 08-19-2023 Tobacco smoking status FLIS Never smoked tobacco [facility] Start: 06-10-2023 End: 08-19-2023 Tobacco use and exposure Smokeless tobacco non-user [facility] Start: 06-10-2023 End: 08-19-2023 Alcohol intake Ex-drinker (finding) [facility] Start: 06-10-2023 End: 08-19-2023 History of Social function [facility] Start: 06-10-2023 End: 08-19-2023 Tobacco use panel [facility] Start: 06-10-2023 Alcohol Comment [facility] Start: 1945 Sex Assigned At Not on file [facility] NEGATED: Highlighted rowStart: NINF History of tobacco use Passive smoker [facility] Progress note 08-23-2023 Note Date & Type Note Facility 08-23-2023 Note [facility] Cardiology Clinic Note Chief Complaint: Patient [...] history of COPD (chronic obstructive pulmonary disease) ([facility]), Heart murmur, Heart valve disease, Hypertension, Palpitations, [...] her echocardiogram Eve Adams MD, MPH, FACC, [facility], [facility] Interventional Cardiology Pager Email: [email or web address] History of Present illness Narrative 08-19-2023 [...] Hepatic function panel documented in this encounter [facility] Progress note 08-31-2022 Note Date & Type Note Facility 08-31-2022 Note Patient is here toda y for 1yr follow up. Review of Systems All other systems reviewed and are negative. [facility] Progress note 08-31-2022 Note Date & [...] about 1 year (around 08/31/2023). Leonidas Peters APRN-CERTIFIED MEDICAL ASSISTANT [facility] Physicians Cardiovascular Medicine [facility] Evaluation note Note Date & Type [...] section and content) DATE CREATED AUTHOR 05/20/2019 [facility] DATE CREATED AUTHOR AUTHOR'S ORGANIZ ATION 09/27/2022 [facility] DATE CREATED AUTHOR AUTHOR'S ORGANIZ ATION 2023 [facility] DATE CREATED AUTHOR AUTHOR'S ORGANIZ ATION 02/19/2024 [facility] d[facility] [employer] Care Teams (unrecognized sec tion and content) 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 [facility] [employer] [facility]. provides no warranty or guarantee of the accuracy or completeness of information in this document.
--- NOTE | 2024-03-03 13:28 | CM.DCFOLLOWU ---
Person spoke with: patient and pt's How are you feeling? well How is your pain? none Did you understand your discharge instructions? yes Do you have any questions about your discharge instructions? no Were you given any prescriptions at discharge? yes Were you able to get your prescriptions filled? yes Do you understand how to take your medications as ordered? yes Do you have any questions about your follow up appointment and do you plan to keep your follow up appointment? no questions, reviewed follow ups Is there anything else that you would like to discuss? no Questions/Comments/Concerns/Other: no
== END 2024-03-01 12:34 | disposition home or self-care (01) ==
LOC: ER 09:36 → MS 10:42
PROVIDERS: Admitting Provider Family Medicine; Emergency Provider Emergency Medicine; PCP Family Medicine; Visit Provider Family Medicine
DX: J45.41 Moderate persistent asthma with (acute) exacerbation (principal); J18.9 Pneumonia, unspecified organism; I10 Essential (primary) hypertension; F41.9 Anxiety disorder, unspecified; K21.9 Gastro-esophageal reflux disease without esophagitis; Z79.899 Other long term (current) drug therapy; E78.5 Hyperlipidemia, unspecified; Z20.822 Contact with and (suspected) exposure to COVID-19; R06.02 Shortness of breath
CPT/HCPCS: 36415; 71045; 80053; 83605; 83735; 84484; 85025; 85610; 87040; 87070; 87811; 93005; 94640; 94667; 94668; 94761; 96365; 96366; 96367; 96368; 96372; 96375; 96376; 97110; 97161; 97165; 97530; 97535; 99285; G0378; J0456; J0696; J1650; J2919; J3475

== ENCOUNTER 2024-03-22 13:27 | Outpatient (OUT) | payer MEDICARE, SELFPAY ==
--- NOTE | 2024-03-22 13:31 | CA_ITS ---
Patient Name: KOLTON NAPIER MR#: [id number] : 1945 Exam Date: 03/22/2024 Ordering Doctor: DR DANI DOMINGUEZ M.D. ECHOCARDIOGRAM REPORT PROCEDURE: CA ECHO DOPPLER COMPLETE INDICATIONS: Aortic valve stenosis, hypertension COMPARISON: None. DESCRIPTION: COMPLETE ECHOCARDIOGRAM Real-time transthoracic echocardiography with 2D, M-mode, spectral and color flow Doppler performed. QUALITY: Technical quality was good. LEFT VENTRICLE: Normal chamber size. Proximal septal hypertrophy (sigmoid septum). LV EF: Global left ventricular systolic function is hyperdynamic; visually estimated ejection fraction is 65 to 70%. No significant wall motion abnormalities. DIASTOLIC: Normal diastolic function. ATRIAL SEPTUM: Visually appears intact. LEFT ATRIUM: Mild dilatation. RIGHT ATRIUM: Normal chamber size. RIGHT VENTRICLE: Normal chamber size. Normal right ventricular systolic function. TRICUSPID VALVE: Normal mobility and thickness. No stenosis with trivial regurgitation. No evidence of pulmonary hypertension. RVSP 25 mmHg MITRAL VALVE: Normal mobility and thickness. There is no mitral annular calcification. Trivial mitral regurgitation. Anterior leaflet is calcified at the tip. AORTIC VALVE: Normal trileaflet appearance. Mildly calcified aortic valve with diminished mobility. No aortic valve stenosis. DVI 0.5, ADIN 1.5 cm2. No aortic regurgitation. AORTIC ROOT: Normal diameter and appearance. Ascending and aortic arch are normal in size. PULMONIC VALVE: Normal thickness and mobility. No stenosis. Trivial regurgitation. PERICARDIUM: No evidence of pericardial effusion. IVC: Collapses with inspirations. IVC is normal in size. CONCLUSION: 1. Global left ventricular systolic function is hyperdynamic; visually estimated ejection fraction is 65 to 70% 2. Normal right ventricular size and systolic function 3. Normal diastolic function 4. The left atrium is mildly dilated 5. No significant valvular abnormalities Adult Echocardiography Procedure Report Left Ventricle LVEDD (3.7 - 5.6 cm): 3.78 cm LVESD (2.2 - 4.0 cm): 2.19 cm LVIVS thickness (0.6 - 1.2 cm): 1.35 cm LVPW thickness (0.5 - 1.0 cm): 0.73 cm e': 0.10 m/s E - e': 6.62 LVOT Max Gradient: 4.12 mm[Hg], 4.26 mm[Hg] Peak Velocity (LVOT): 1.01 m/s, 1.03 m/s LVOT Diameter 1.94 cm Left Atrium LA Volume Index (2D A2C): 41.35 ml/m2 Left Atrium Systolic Dimension: 3.17 cm Mitral Valve MV E to A Ratio: 0.72 Mitral Valve A-Wave Peak Velocity: 0.94 m/s Mitral Valve E-Wave Peak Velocity: 0.68 m/s Right Ventricle Aorta AO Root Diam: 3.43 cm Ascending Ao Diam: 3.22 cm Aortic Valve AoV Area (Peak Haile): 1.73 cm2, 1.78 cm2, 1.91 cm2 AoV Area (VTI): 1.51 cm2, 1.55 cm2, 1.52 cm2 Peak Velocity(Antegrade Flow): 1.69 m/s, 1.60 m/s, 1.76 m/s Peak Gradient(Antegrade Flow): 11.36 mm[Hg], 10.20 mm[Hg], 12.43 mm[Hg] Mean Velocity(Antegrade Flow): 1.22 m/s, 1.10 m/s, 1.08 m/s Mean Gradient(Antegrade Flow): 6.71 mm[Hg], 5.65 mm[Hg], 5.70 mm[Hg] Velocity Time Integral: 35.09 cm, 34.90 cm, 36.09 cm Tricuspid Valve Peak Velocity (Regurgitant Flow): 2.33 m/s Pulmonic Valve Mean Gradient: 2.00 mm[Hg] Mean Velocity: 0.65 m/s Peak Velocity: 1.03 m/s, 0.82 m/s Peak Gradient: 2.67 mm[Hg], 4.26 mm[Hg] Right Atrium Right Atrium Systolic Pressure: 49.03 ml, 49.03 ml Dictated by: Dani Dominguez M.D. on 03/24/2024 at 12:33 Approved by: Dani Dominguez M.D. on 03/24/2024 at 12:38
--- OUTSIDE RECORDS SUMMARY | 2024-03-22 13:37 | XMS_ITS | CCD ---
Author Organization [facility] Care Team Providers Care Peg Driver Name Role Phone ADORE, DR MARIALUISA Anguiano [...] SHAHEED Thomas Admitting Unavailable NADERER, DR SHAHEED Thomsa Consulting Unavailable NADERER, DR SHAHEED Thomas Consulting Unavailable NADERER, DR SHAHEED Thomas Primary Care Unavailable NADERER, DR SHAHEED Thomas Attending Unavailable NADERER, DR SHAHEED Thomas Admitting Unavailable WEST, DR MARIALUISA Anguiano Consulting Unavailable NADERER, DR SHAHEED Thomas Primary Care Unavailable [place], DR MARIALUISA Anguiano Attending Unavailable [place], DR MARIALUISA Anguiano Admitting Unavailable [place], DR MARIALUISA Anguiano Consulting Unavailable [facility], DR SHAHEED Thomas Primary Care Unavailable [place], DR MARIALUISA Anguiano Attending Unavailable [place], DR MARIALUISA Anguiano Admitting Unavailable [place], DR MARIALUISA Anguiano Consulting Unavailable [facility], DR SHAHEED Thomas Primary Care Unavailable [place], DR MARIALUISA Anguiano Attending Unavailable [facility], DR [...] Facility (1 source) Albuterol Drug Allergy [facility] Repository (1 source) Penicillin Drug Allergy [facility] Repository (3 sources) Albuterol Drug Allergy 9 Palpitations [facility] (3 sources) Cephalosporins (Antibiotic) Drug Allergy 3 Diarrhea, GI intolerance [facility] (4 sources) Penicillins; Translations: [PENICILLINS] Drug Allergy 8 GI intolerance [facility] (3 sources) cefdinir; Translations: [CEFDINIR] Drug Allergy 1 Diarrhea, GI intolerance [facility] (1 source) Albuterol; Translations: [ALBUTEROL SULFATE] Drug Allergy 9 [facility] Repository Medications Current Medications Medication Drug Class(es) Dates Sig (Normalized) Sig (Original) ALPRAZolam 0.5 mg oral tablet (3 sources) Benzodiazepine Start: 4 End: 4 take 0.5 tablet by mouth three times daily as needed for anxiety ALPRAZolam (Xanax) 0.5 MG tablet Indications: LAUREL (generalized anxiety disorder) ([facility]) Take 0.5 tablets (0.25 mg) by mouth [...] powder (3 sources) Polyene Antifungal nystatin (Mycostatin) 037124 UNIT/GM powder Apply 1 application topically in [...] anxiety disorder; Translations: [Generalized anxiety disorder] Onset: 3 06-10-2023 Chronic Asthma (6 sources) Asthma-chronic [...] Other long-term (current) drug therapy; Translations: [OTH HOUSING GRANT ANALYST CURRENT DRUG THERAPY] Onset: 3 Episodic Other [...] Translations: [Varicose veins of lower extremity] Onset: 2 Episodic Past or Other Problems Problem Classification [...] Range Facility Office Visiton 08-23-2023 Follow-up visit [id number] Pankaj Napier Martha 1945 F Date Provider Department Center 08/23/2023 [facility] Family History Problem Relation Age of Onset Coronary artery disease Mother Coronary artery disease Brother Family Status - Relation Status Age at Mother Brother Level of Service:51370 SD OFFICE/OUTPATIENT ESTABLISHED LOW MDM 20 MIN Normal [facility] MG MAMM SCREEN 3D SHARLENE CADon 09-24-2022 MG MAMM SCREEN 3D SHARLENE CAD Patient: KOLTON NAPIER Exam Date: 09/24/2022 : 1945 Gender:F Ordering : DR SHAHEED DE LA TORRE . Admission #: [id number] Family : Order #: [id number] CLICK HERE TO VIEW EXAM RADIOLOGY REPORT [...] stomach cancer at age 80. LOCATION: [facility] BREAST COMPOSITION: Scattered areas fibroglandular density. [...] M.D. on 09/25/2022 at 07:08 Normal [facility] Office Visiton 08-31-2022 Follow-up visit [id number] Pankaj Napier 1945 F Date Provider Department Center 08/31/2022 [id number] [facility] Family History Problem Relation Age of Onset Coronary artery disease Mother Coronary artery disease Brother Family Status - Relation Status Age at Mother Brother Level of Service:90764 SD OFFICE/OUTPATIENT ESTABLISHED MOD MDM 30-39 MIN Reason for Visit and Comments: Follow-up [632308] - 1 yr follow up Normal [facility] CBC AUTO DIFFon 07-17-2022 BASO # 0.1 103/ul Normal 0.0-0.1 [facility] Comment on above: Performed By: #### C BC ####[facility] [address] [place] [id number]. Fidencio Walker Basophils/100 WBC (Bld) 0.8 % Normal 0.2-2.0 [facility] Comment on above: Performed By: #### C BC ####[facility] [address] [place], [place] [address]PaNeal Walker EO # 0.4 103/ul Normal 0.0-0.7 [facility] Comment on above: Performed By: #### C BC ####[facility] [address] [place], [place] [address]Tr. Fidencio Walker Eosinophils/100 WBC (Bld) 4.7 % Normal 0.9-7.0 [facility] Comment on above: Performed By: #### C BC ####[facility] [address] [place] [address]Dr. Fidencio Walker Erythrocyte distribution width (RBC) [Ratio] 13.0 % Normal 11.0-15.0 [facility] Comment on above: Performed By: #### C BC ####[facility] [address] [place] [address]Dr. Fidencio Walker Hematocrit (Bld) [Volume fraction] 43.0 % Normal 36.0-48.0 [facility] Comment on above: Performed By: #### C BC ####[facility] [address] [place], [place] [address]Dr. Fidencio Walker Hemoglobin (Bld) [Mass/Vol] 13.1 g/dL Normal 12.0-16.0 [facility] Comment on above: Performed By: #### C BC ####[facility] [address] [place], [place] [address]Dr. Fidencio Walker IG # 0.02 10e3/ul Normal 0.00-0.03 [facility] Comment on above: Performed By: #### C BC ####[facility] [address] [place], [place] [address]Dr. Fidencio Walker IG % 0.3 % Normal 0.0-0.5 [facility] Comment on above: Performed By: #### C BC ####[facility] [address] [place], [place] [address]Dr. Fidencio Walker LYMPH # 2.2 103/ul Normal 1.2-3.8 [facility] Comment on above: Performed By: #### C BC ####[facility] [address] [place], [place] [address]Dr. Fidencio Walker Lymphocytes/100 WBC (Bld) 28.7 % Normal 20.5-60.0 [facility] Comment on above: Performed By: #### C BC ####[facility] [address] [place], [place] [address]Dr. Fidencio Walker MANUAL DIFF REQ NO Normal [facility] Comment on above: Performed By: #### C BC ####[facility] [address] [place] [id number]. Fidencio Aaron MCH (RBC) [Entitic mass] 30.9 pg Normal 26.7-34.0 [facility] Comment on above: Performed By: #### C BC ####[facility] [address] [place] [address]Dr. Fidencio Aaron MCHC (RBC) [Mass/Vol] 30.5 g/dL Normal 29.9-35.2 [facility] Comment on above: Performed By: #### C BC ####[facility] [address] [place] [address]Dr. Fidencio Walker MCV (RBC) [Entitic vol] 101.4 fL Critically high 81.0-99.0 [facility] Comment on above: Performed By: #### C BC ####[facility] [address] [place], [place] [address]Dr. Fidencio Walker MONO # 0.5 103/ul Normal 0.3-0.8 [facility] Comment on above: Performed By: #### C BC ####[facility] [address] [place], [place] [address]Dr. Fidencio Walker Monocytes/100 WBC (Bld) 7.1 % Normal 1.7-12.0 [facility] Comment on above: Performed By: #### C BC ####[facility] [address] [place], [place] [address]DrNeal Walker NEUT # 4.4 103/ul Normal 1.4-6.5 [facility] Comment on above: Performed By: #### C BC ####[facility] [address] [place], [place] [address]DrNeal Walker Neutrophils/100 WBC (Bld) 58.4 % Normal 43.0-75.0 [facility] Comment on above: Performed By: #### C BC ####[facility] [address] [place], [place] [address]DrNeal Walker Platelet mean volume (Bld) [Entitic vol] 10.8 fL Normal 9.5-13.5 [facility] Comment on above: Performed By: #### C BC ####[facility] [address] [place], [place] [address]Su. Fidencio Walker PLT 200 103/ul Normal 150-450 [facility] Comment on above: Performed By: #### C BC ####[facility] [address] [place], [place] [address]Zd. Fidencio Walker RBC 4.24 106/ul Normal 4.20-5.40 [facility] Comment on above: Performed By: #### C BC ####[facility] [address] [place], [place] [address]Ez. Fidencio Walker WBC 7.5 103/ul Normal 4.0-11.0 [facility] Comment on above: Performed By: #### C BC ####[facility] [address] [place] [id number]. Fidencio Walker LIPID PROFILEon 07-17-2022 CHOL-HDL RATIO NORM SEE BELOW Normal [facility] Comment on above: Result Comment: 3.3 - 4.4 LOW RISK 4.4 - 7.1 AVERAGE RISK 7.1 - 11.0 MODERATE RISK >11.0 HIGH RISK Performed By: #### L IPID, LIVER, BMP ####[facility] [address] [place], [place] [address]Aq. Fidencio Walker Cholesterol [Mass/Vol] 134 mg/dL Normal <=200 [facility] Comment on above: Performed By: #### L IPID, LIVER, BMP ####[facility] [address] [place], [place] [address]Ef. Fidencio Walker Cholesterol in HDL [Mass/Vol] 57 mg/dL Normal 40-60 [facility] Comment on above: Performed By: #### L IPID, LIVER, BMP ####[facility] [address] [place], [place] [address]Wt. Fidencio Walker Cholesterol in LDL [Mass/Vol] 59.6 mg/dL Normal [facility] Comment on above: Performed By: #### L IPID, LIVER, BMP ####[facility] [address] [place] [id number]. Fidencio Walker Cholesterol.total/Ch olesterol in HDL [Mass ratio] 2.4 {ratio} Normal [facility] Comment on above: Performed By: #### L IPID, LIVER, BMP ####[facility] [address] [place] [address]Dr. Fidencio Walker HDL NORMAL > or = 60 mg/dl - LO W CARDIOVASCULAR RISK <40 mg/dl - HIGH CARDIOVASCULAR RISK Normal [facility] Comment on above: Performed By: #### L IPID, LIVER, BMP ####[facility] [address] [place] [id number]. Fidencio Walker LDL CALC NORMAL SEE BELOW Normal [facility] Comment on above: Result Comment: <100 mg/dl OPTIMAL 100 - 129 mg/dl NEAR OR ABOVE OPTIMAL 130 - 159 mg/dl BORDERLINE HIGH 160 - 189 mg/dl HIGH >190 mg/dl VERY HIGH Performed By: #### L IPID, LIVER, BMP ####[facility] [address] [place] [id number]. Galileanickolas Walker Triglyceride [Mass/Vol] 87 mg/dL Normal <=150 [facility] Comment on above: Performed By: #### L IPID, LIVER, BMP ####[facility] [address] [place] [address]Dr. Fidencio Aaron VLDL CALC 17.4 mg/dL Normal [facility] Comment on above: Performed By: #### L IPID, LIVER, BMP ####[facility] [address] [place] [id number]. Galileanickolas Aaron LIVER PROFILEon 07-17-2022 Albumin [Mass/Vol] 3.7 g/dL Normal 3.4-5.0 [facility] Comment on above: Performed By: #### L IPID, LIVER, BMP ####[facility] [address] [place] [id number]. Fidencio Walker Albumin/Globulin [Mass ratio] 1.0 {ratio} Normal [facility] Comment on above: Performed By: #### L IPID, LIVER, BMP ####[facility] [address] [place] [address]Dr. Fidencio Walker ALP [Catalytic activity/Vol] 58 U/L Normal 46-116 [facility] Comment on above: Performed By: #### L IPID, LIVER, BMP ####[facility] [address] [place] [id number]. Fidencio Walker ALT [Catalytic activity/Vol] 13 U/L Critically low 14-59 [facility] Comment on above: Performed By: #### L IPID, LIVER, BMP ####[facility] [address] [place] [id number]. Fidencio Walker AST [Catalytic activity/Vol] 18 U/L Normal 15-37 [facility] Comment on above: Performed By: #### L IPID, LIVER, BMP ####[facility] [address] [place] [address]Dr. Fidencio Walker BILI, CONJUGATED 0.1 mg/dL Normal 0.0-0.2 [facility] Comment on above: Performed By: #### L IPID, LIVER, BMP ####[facility] [address] [place] [address]Dr. Fidencio Walkre Bilirubin [Mass/Vol] 0.3 mg/dL Normal 0.2-1.0 [facility] Comment on above: Performed By: #### L IPID, LIVER, BMP ####[facility] [address] [place] [address]Dr. Fidencio Walker Globulin (S) [Mass/Vol] 3.6 g/dL Normal [facility] Comment on above: Performed By: #### L IPID, LIVER, BMP ####[facility] [address] [place] [id number]. Fidencio Walker Protein [Mass/Vol] 7.3 g/dL Normal 6.4-8.2 [facility] Comment on above: Performed By: #### L IPID, LIVER, BMP ####[facility] [address] [place] [id number]. Fidencio Walker PROF CHEM 8 (BAS METB)on Anion gap [Moles/Vol] 11.3 mmol/L Normal [facility] Comment on above: Performed By: #### L IPID, LIVER, BMP ####[facility] [address] [place] [address]Dr. Fidencio Walker Calcium [Mass/Vol] 9.2 mg/dL Normal 8.5-10.1 [facility] Comment on above: Performed By: #### L IPID, LIVER, BMP ####[facility] [address] [place] [address]Dr. Fidencio Walker Chloride [Moles/Vol] 102 mmol/L Normal 98-107 [facility] Comment on above: Performed By: #### L IPID, LIVER, BMP ####[facility] [address] [place] [address]Dr. Fidencio Walker CO2 [Moles/Vol] 29.5 mmol/L Normal 21.0-32.0 [facility] Comment on above: Performed By: #### L IPID, LIVER, BMP ####[facility] [address] [place] [address]Dr. Fidencio Walker Creatinine [Mass/Vol] 0.92 mg/dL Normal 0.55-1.02 [facility] Comment on above: Performed By: #### L IPID, LIVER, BMP ####[facility] [address] [place] [address]Dr. Fidencio Walker EGFR-AF SAUDI ARABIAN >60 Normal >=60 [facility] Comment on above: Result Comment: Prev iously reported as: (blank) On 07/17/2022 13:28 By AJR Performed By: #### L IPID, LIVER, BMP ####[facility] [address] [place] [address]Dr. Galileanickolas Walker EGFR-NON AF SAUDI ARABIAN 59 mL/min/1.73m2 Critically low >=60 [facility] Comment on above: Result Comment: Prev iously reported as: (blank) On 07/17/2022 13:28 By AJR Performed By: #### L IPID, LIVER, BMP ####[facility] [address] [place] [id number]. Fidencio Walker Glucose [Mass/Vol] 98 mg/dL Normal 74-106 [facility] Comment on above: Performed By: #### L IPID, LIVER, BMP ####[facility] [address] [place] [address]Dr. Fidencio Walker Potassium [Moles/Vol] 3.8 mmol/L Normal 3.5-5.1 [facility] Comment on above: Performed By: #### L IPID, LIVER, BMP ####[facility] [address] [place] [address]Dr. Fidencio Walker Sodium [Moles/Vol] 139 mmol/L Normal 136-145 [facility] Comment on above: Performed By: #### L IPID, LIVER, BMP ####[facility] [address] [place] [address]Dr. Fidencio Walker Urea nitrogen [Mass/Vol] 19.0 mg/dL Critically high 7.0-18.0 [facility] Comment on above: Performed By: #### L IPID, LIVER, BMP ####[facility] [address] [place] [address]Dr. Fidencio Walker Urea nitrogen/Creatinine [Mass ratio] 20.7 mg/mg Normal [facility] Comment on above: Performed By: #### L IPID, LIVER, BMP ####[facility] [address] [place] [address]Dr. Fidencio Walker VC INJ SCL BERTA BROOD HATCHERY MANAGER VEINSon 1 VC INJ SCL BERTA BROOD HATCHERY MANAGER VEINS Patient: KOLTON NAPIER Exam Date: 04/16/2022 : 1945 Gender:F Ordering : DR MARIALUISA AVITIA M.D. Admission #: [id number] Family : Order #: [id number] CLICK HERE TO VIEW EXAM RADIOLOGY REPORT PROCEDURE: VEIN CENTER INJECTION SCLEROSING SOLUTION MULTIPLE VEINS SAME COMPARISON: VC INJ SCL BERTA BROOD HATCHERY MANAGER VEINS, 04/02/2022. VC INJ SCL BERTA BROOD HATCHERY MANAGER VEINS, 03/24/2022. INDICATIONS: Pain co-occurrent and due [...] Avitia MD on 04/16/2022 at 14:34 Normal [facility] VC INJ SCL BERTA BROOD HATCHERY MANAGER VEINSon 0 04-02-2022 VC INJ SCL BERTA BROOD HATCHERY MANAGER VEINS Patient: KOLTON NAPIER Exam Date: 04/02/2022 : 1945 Gender:F Ordering : DR MARIALUISA AVITIA M.D. Admission #: [id number] Family : Order #: [id number] CLICK HERE TO VIEW EXAM RADIOLOGY REPORT PROCEDURE: VEIN CENTER INJECTION SCLEROSING SOLUTION MULTIPLE VEINS SAME COMPARISON: VC INJ SCL BERTA BROOD HATCHERY MANAGER VEINS, 03/24/2022. INDICATIONS: Pain co-occurrent and due [...] Vaughan M.D. on 04/02/2022 at 15:47 Normal [facility] VC INJ SCL BERTA BROOD HATCHERY MANAGER VEINSon 0 03-24-2022 VC INJ SCL BERTA BROOD HATCHERY MANAGER VEINS Patient: KOLTON NAPIER. Exam Date: 03/24/2022 : 1945 Gender:F Ordering : DR MARIALUISA AVITIA M.D. Admission #: [id number] Family : Order #: [id number] CLICK HERE TO VIEW EXAM RADIOLOGY REPORT PROCEDURE: VEIN CENTER INJECTION SCLEROSING SOLUTION MULTIPLE VEINS SAME COMPARISON: VC INJ SCL BERTA BROOD HATCHERY MANAGER VEINS, 03/19/2022. VC INJ SCL BERTA BROOD HATCHERY MANAGER VEINS, 03/10/2022. INDICATIONS: Pain co-occurrent and due [...] Marialuisa Avitia MD on 03/24/2022 at 13:41 Normal [facility] VC INJ SCL BERTA BROOD HATCHERY MANAGER VEINSon 0 03-19-2022 VC INJ SCL BERTA BROOD HATCHERY MANAGER VEINS Patient: KOLTON NAPIER. Exam Date: 03/19/2022 : 1945 Gender:F Ordering : DR MARIALUISA AVITIA M.D. Admission #: [id number] Family : Order #: [id number] CLICK HERE TO VIEW EXAM RADIOLOGY REPORT PROCEDURE: VEIN CENTER INJECTION SCLEROSING SOLUTION MULTIPLE VEINS SAME COMPARISON: VC INJ SCL BERTA BROOD HATCHERY MANAGER VEINS, 03/10/2022. VC INJ SCL BERTA BROOD HATCHERY MANAGER VEINS, 03/03/2022. INDICATIONS: Pain co-occurrent and due [...] Avitia MD on 03/19/2022 at 15:13 Normal [facility] VC INJ SCL BERTA BROOD HATCHERY MANAGER VEINSon 0 03-10-2022 VC INJ SCL BERTA BROOD HATCHERY MANAGER VEINS Patient: KOLTON NAPIER. Exam Date: 03/10/2022 : 1945 Gender:F Ordering : DR MARIALUISA AVITIA M.D. Admission #: [id number] Family : Order #: [id number] CLICK HERE TO VIEW EXAM RADIOLOGY REPORT PROCEDURE: VEIN CENTER INJECTION SCLEROSING SOLUTION MULTIPLE VEINS SAME COMPARISON: VC INJ SCL BERTA BROOD HATCHERY MANAGER VEINS, 03/03/2022. INDICATIONS: Pain co-occurrent and due [...] Avitia MD on 03/10/2022 at 14:38 Normal [facility] VC INJ SCL BERTA BROOD HATCHERY MANAGER VEINSon 0 03-03-2022 VC INJ SCL BERTA BROOD HATCHERY MANAGER VEINS Patient: KOLTON NAPIER. Exam Date: 03/03/2022 : 1945 Gender:F Ordering : DR MARIALUISA AVITIA M.D. Admission #: [id number] Family : Order #: [id number] CLICK HERE TO VIEW EXAM RADIOLOGY REPORT [...] Avitia MD on 03/03/2022 at 15:25 Normal [facility] VC CONSULT FOLLOWUPon 2021 VC CONSULT FOLLOWUP Patient: CARTER NAPIER GALILEA MarthaNeal Exam Date: 02/25/2022 : 1945 Gender:F Ordering : DR MARIALUISA AVITIA M.D. Admission #: [id number] Family : Order #: [id number] CLICK HERE TO VIEW EXAM RADIOLOGY REPORT [...] Vaughan M.D. on 02/25/2022 at 15:41 Normal [facility] VC EXT VENOUS RT LIMITEDon 0 02-25-2022 VC EXT VENOUS RT LIMITED Patient: KOLTON NAPIER Exam Date: 02/25/2022 : 1945 Gender:F Ordering : DR MARIALUISA AVITIA M.D. Admission #: [id number] Family : Order #: [id number] CLICK HERE TO VIEW EXAM RADIOLOGY REPORT [...] Vaughan M.D. on 02/25/2022 at 15:39 Normal [facility] VC INJ FOAM SCLERO W US MLTI on 02-19-2022 VC INJ FOAM SCLERO W US MLTI Patient: KOLTON NAPIER. Exam Date: 02/19/2022 : 1945 Gender:F Ordering : DR MARIALUISA AVITIA M.D. Admission #: [id number] Family : Order #: [id number] CLICK HERE TO VIEW EXAM RADIOLOGY REPORT [...] Noah Vaughan M.D. on 02/20/2022 at 09:07 [facility] VC CONSULT FOLLOWUPon 2021 VC CONSULT FOLLOWUP Patient: CARTER NAPIER Exam Date: 02/10/2022 : 1945 Gender:F Ordering : DR MARIALUISA AVITIA M.D. Admission #: [id number] Family : Order #: [id number] CLICK HERE TO VIEW EXAM RADIOLOGY REPORT [...] Avitia MD on 02/10/2022 at 14:56 Normal [facility] VC EXT VENOUS RT LIMITEDon 0 02-10-2022 VC EXT VENOUS RT LIMITED Patient: KOLTON NAPIER Exam Date: 02/10/2022 : 1945 Gender:F Ordering : DR MARIALUISA AVITIA M.D. Admission #: [id number] Family : Order #: [id number] CLICK HERE TO VIEW EXAM RADIOLOGY REPORT [...] Avitia MD on 02/10/2022 at 14:38 Normal [facility] VC ENDOVENOUS ABL 1ST V RTon 02-03-2022 ENDOVENOUS ABL 1ST V RT Patient: KOLTON NAPIER Exam Date: 02/03/2022 : 1945 Gender:F Ordering : DR MARIALUISA AVITIA M.D. Admission #: [id number] Family : Order #: [id number] CLICK HERE TO VIEW EXAM RADIOLOGY REPORT [...] Vaughan M.D. on 02/03/2022 at 14:01 Normal [facility] COMP CONSULTATIONon 01-22 VC COMP CONSULTATION Patient: DO HERI NAPIER Exam Date: 01/22/2022 : 1945 Gender:F Ordering : DR MARIALUISA AVITIA M.D. Admission #: [id number] Family : Order #: [id number] CLICK HERE TO VIEW EXAM RADIOLOGY REPORT [...] Avitia MD on 01/22/2022 at 14:56 Normal [facility] VC VENOUS REFLUX SHARLENE LMTon 0 01-22-2022 VC VENOUS REFLUX SHARLENE LMT Patient: KOLTON NAPIER Exam Date: 01/22/2022 : 1945 Gender:F Ordering : DR MARIALUISA AVITIA M.D. Admission #: [id number] Family : Order #: [id number] CLICK HERE TO VIEW EXAM RADIOLOGY REPORT [...] chronic thrombus visualized Compressibility: Normal Flow: Normal Paint Laboratory Technician: Dist/med calf 2.7mm with 0s. Mid/med calf [...] Flow: 1.2s of reflux in popliteal vein Paint Laboratory Technician: Dist/med calf 4.7mm with 0s reflux. Tech [...] Avitia MD on 01/22/2022 at 14:18 Normal [facility] OBSOLETEon 05-15-2019 OBSOLETE Refill (KAROL) KOLTON NAPIER ([id number]) 1945 F Date Time Provider Department 05/15/19 JAMES JOHNSON During your visit today, we recorded the following information about you: Maribel Osorio Standards Analyst II 05/16/2019 4:42 PM Signed Call from pharmacy requesting refill. Pending Prescriptions Disp Refills DILTIAZEM 30 MG TABLET 270 tablet 1 Sig: TAKE ONE TABLET BY MOUTH THREE TIMES A DAY FLORENCIA: Yes Patient last seen 05/30/18 Maribel Osorio Standards Analyst II Allergies As of Date: 05/15/2019 Noted [...] Status:Closed by JAMES JOHNSON MD on 05/20/19 Normal [facility] CNOVon 05-30-2018 CNOV Office Visit (CARDMN ) KOLTON NAPIER ([id number]) 1945 F Date Time Provider Department 05/30/18 2:00 PM JAMES JOHNSON During your visit today, we recorded the following information about you: Pulse Blood pressure Weight Height 114/minute 140/78 73.9 kg 1.626 m James Johnson MD, 05/30/2018 5:53 PM Signed [facility] Department of Cardiovascular Medicine SECTION OF CARDIAC PACING and ELECTROPHYSIOLOGY OUTPATIENT VISIT DATE May 30, 2018 OUTPATIENT VISIT TYPE NEW PRIMARY CARE PHYSICIAN: Shaheed De La Torre MD ([facility]) [address] [place] [address] IMPRESSION/PLAN: The patient is very pleasant female [...] ECG today: Sinus tachycardia at 114 bpm. SD 154 ms, QRS 86 ms, QTC 460 ms. FOLLOW UP: Return in about 4 months (around 09/27/2018). This note was created using computerized seafood team member software and may therefore include some seafood team member errors including errors in gender and inappropriate words or phrases. I reviewed old records, obtained relevant HPI and PMH from the pt, examined the patient and created the above report. James Johnson MD May 30, 2018 Note to: Shaheed De La Torre MD ([facility]) [address] [place] [address] James Johnson MD, 05/30/2018 3:19 PM Signed If symptoms not improving in 7-10 days on low dose diltiazem, call. Referring Provider: REFERRAL, NO(HIST) [[id number]] Allergies As of Date: 05/30/2018 Noted Allergy [...] by JAMES JOHNSON MD on 05/30/18 Normal [facility] ECG COMPLETE W INTERPRETATIO Non 05-30-2018 ECG COMPLETE W INTERPRETATION NAME : KOLTON NAPIER PID : [id number] : 1945 Gender : Female Race : ORD : [id number] Procedure Date : May 30 2018 13:36:13 Edit Date : May 31 2018 13:51:33 Diagnosis:SINUS TACHYCARDIA WITH PREMATURE ATRIAL COMPLEXES OTHERWISE NORMAL ECG Confirmed by MD AYN TAMANNA ([id number]) on 05/31/2018 1:51:26 PM Ventricular Rate : 114 BPM Atrial Rate : 114 BPM P-R Interval : 154 ms QRS Duration : 86 ms Q-T Interval : 334 ms QTC Calculation(Bezet) : 460 ms P Manquin : 37 degrees R Manquin : 30 degrees T Manquin : 46 degrees Test Reason : Location : 314 : [facility] Overread By : MD YAN TAMANNA Edited By : MD YAN TAMANNA Referred By : JAMES JOHNSON Acquired by : BHUMIKA SANCHEZ [facility] PROGRESSon 05-30-2018 PROGRESS HNO ID: [id number] Author: James Johnson MD Service: (none) Author Type: Physician Type: Progress Notes Filed: 05/30/2018 5:53 PM Note Text: [facility] Department of Cardiovascular Medicine SECTION OF CARDIAC PACING and ELECTROPHYSIOLOGY OUTPATIENT VISIT DATE May 30, 2018 OUTPATIENT VISIT TYPE NEW PRIMARY CARE PHYSICIAN: Shaheed De La Torre MD ([facility]) [address] [place] [address] IMPRESSION/PLAN: The patient is very pleasant female [...] ECG today: Sinus tachycardia at 114 bpm. SD 154 ms, QRS 86 ms, QTC 460 ms. FOLLOW UP: Return in about 4 months (around 09/27/2018). This note was created using computerized seafood team member software and may therefore include some seafood team member errors including errors in gender and inappropriate words or phrases. I reviewed old records, obtained relevant HPI and PMH from the pt, examined the patient and created the above report. James Johnson MD May 30, 2018 Note to: Shaheed De La Torre MD ([facility]) [address] [place] [address] Normal [facility] Vital Signs Date Time Vital Sign Value Performing Clinician Jorgei tarahy 08-19-2023 14:36-0500 Body height 162.6 cm Shaheed De La Torre MD Work Phone: [facility] 08-19-2023 14:36-0500 Body mass index (BMI) [Ratio] 26.09 kg/m2 Shaheed De La Torre MD Work Phone: [facility] 08-19-2023 14:36-0500 Body temperature 98.1 [degF] Shaheed De La Torre MD Work Phone: [facility] 08-19-2023 14:36-0500 Body weight 68.95 kg Shaheed De La Torre MD Work Phone: [facility] 08-19-2023 14:36-0500 Diastolic blood pressure 70 mm[Hg] Shaheed De La Torre MD Work Phone: [facility] 08-19-2023 14:36-0500 Heart rate 71 /min Shaheed De La Torre MD Work Phone: [facility] 08-19-2023 14:36-0500 SaO2% (BldA) [Mass fraction] 98 % Shaheed De La Torre MD Work Phone: [facility] 08-19-2023 14:36-0500 Systolic blood pressure 108 mm[Hg] Shaheed De La Torre MD Work Phone: [facility] Healthcare Encounters Encounter Date Encounter Type Care Provider Facility Start: 03-09-2024 End: 03-09-2024 ambulatory SHAHEED DE LA TORRE Not Available Start: 02-17-2024 End: 02-17-2024 ambulatory SHAHEED DE LA TORRE Not Available Start: 09-15-2023 End: 09-15-2023 ambulatory SHAHEED DE LA TORRE Not Available Start: 08-23-2023 End: 08-23-2023 ambulatory [facility] Start: 08-19-2023 End: 08-19-2023 Office outpatient visit 25 minutes Shaheed De La Torre MD Work Phone: [facility] Comment on above: Benign essential [...] Shaheed De La Torre MD Work Phone: [facility] Start: 08-19-2023 Bamboo flowsheet Shaheed De La Torre MD Work Phone: [facility] Start: 06-10-2023 End: 06-10-2023 ambulatory SHAHEED DE LA TORRE Not Available Start: 09-24-2022 End: 09-25-[address] NOAH VAUGHAN Facility: Start: 08-31-2022 End: 08-31-2022 ambulatory LEONIDAS PETERS [facility] Start: 07-17-2022 End: 07-18-[address] SHAHEED [...] 08/19/2023 2:30 PM EST Office Visit [facility] [address] [place] [address] Shaheed De La Torre MD [address] [place] [address] [facility] on above: Arrived Start: 08-19-2023 End: 08-19-2024 Basic metabolic 1998 panel - Serum or Plasma Basic metabolic panel Lab Routine Benign essential hypertension (CMS/HCC) Expected: 08/19/2023 (Approximate), Expires: 08/19/2024 [facility] Work Phone: Comment on above: Expected: 08/19/2023 (Approximate), Expires: 08/19/2024 Start: 08-19-2023 End: 08-19-2024 CBC W Auto Differential panel - Blood CBC and differential Lab Routine Encounter for long-term (current) use of medications Expected: 08/19/2023 (Approximate), Expires: 08/19/2024 [facility] Comment on above: Expected: 08/19/2023 (Approximate), Expires: 08/19/2024 Start: 08-19-2023 End: 08-19-2024 Hepatic function 2000 panel - Serum or Plasma Hepatic function panel Lab Routine Encounter for long-term (current) use of medications Expected: 08/19/2023 (Approximate), Expires: 08/19/2024 [facility] Comment on above: Expected: 08/19/2023 (Approximate), Expires: 08/19/2024 Start: 08-19-2023 End: 08-19-2024 Lipid 1996 panel - Serum or Plasma Lipid panel Lab Routine Dyslipidemia (CMS/HCC) Expected: 08/19/2023 (Approximate), Expires: 08/19/2024 [facility] Comment on above: Expected: 08/19/2023 (Approximate), Expires: 08/19/2024 Start: 1945 Medicare Annual Wellness (AWV) Medicare Annual Wellness (AWV) [facility] Payers Date Payer Category Payer Medicare [employer] MEDICARE A DVANTAGE AETNA MEDICARE REPLACEMENT [id number] 2022-Present [address] [place] [address] [id number] 1959 Medicare [id number] 1945 Unknown [id number] [id number]3 1945 Unknown [id number] 2.16.840.1.179410.3.579.2.593 1945 Unknown [id number] 2.16.840.1.445188.3.579.2.593 1945 Unknown [id number] 2.16.840.1.036572.3.579.2.593 1945 Unknown [id number] 2.16.840.1.466147.3.579.2.593 1945 Unknown [id number] 2.16.840.1.021140.3.579.2.593 1945 Unknown [id number] 2.16.840.1.934286.3.579.2.593 1945 Unknown [id number] 2.16.840.1.155430.3.579.2.593 1945 Unknown [id number] 2.16.840.1.284941.3.579.2.593 1945 Unknown [id number] 2.16.840.1.644899.3.579.2.593 1945 Unknown [id number] 2.16.840.1.189430.3.579.2.593 1945 Unknown [id number] 2.16.840.1.198590.3.579.2.593 1945 Unknown [id number] 2.16.840.1.756868.3.579.2.593 1945 Unknown [id number] 2.16.840.1.429029.3.579.2.1259 1945 Unknown [id number] 2.16.840.1.554818.3.579.2.1259 1945 Unknown [id number] 2.16.840.1.566091.3.579.2.1259 1945 Unknown [id number] 2.16.840.1.348105.3.579.2.1259 1945 Unknown [id number] 2.16.840.1.462343.3.579.2.1259 Social History Date Type Detail Facility Start: 06-10-2023 End: 08-19-2023 Tobacco smoking status NHIS Never smoked tobacco [facility] Start: 06-10-2023 End: 08-19-2023 Tobacco use and exposure Smokeless tobacco non-user [facility] Start: 06-10-2023 End: 08-19-2023 Alcohol intake Ex-drinker (finding) [facility] Start: 06-10-2023 End: 08-19-2023 History of Social function [facility] Start: 06-10-2023 End: 08-19-2023 Tobacco use panel [facility] Start: 06-10-2023 Alcohol Comment holiday [facility] Start: 1945 Sex Assigned At Not on file [facility] NEGATED: Highlighted rowStart: NINF History of tobacco use Passive smoker [facility] Progress note 08-23-2023 Note Date & Type Note Facility 08-23-2023 Note [facility] Cardiology Clinic Note Chief Complaint: Patient [...] history of COPD (chronic obstructive pulmonary disease) (CMS/HCC), Heart murmur, Heart valve disease, Hypertension, Palpitations, [...] her echocardiogram Eve Adams MD, MPH, FACC, [facility] Interventional Cardiology Pager Email: [email or web address] History of Present illness Narrative 08-19-2023 [...] Hepatic function panel documented in this encounter [facility] Progress note 08-31-2022 Note Date & Type Note Facility 08-31-2022 Note Patient is here toda y for 1yr follow up. Review of Systems All other systems reviewed and are negative. [facility] Progress note 08-31-2022 Note Date & Type [...] Chronic obstructive pulmonary disease, unspecified COPD type ([facility]/HCC) Paroxysmal SVT (supraventricular tachycardia) ([facility]) Plan 1. Hypertension -Controlled, continue losartan hydrochlorothiazide 100-25 mg and diltiazem 60 mg 3 times daily. 2. Hyperlipidemia -Controlled on Rosuvastatin 10 mg 3. SVT -Controlled, asymptomatic. Continue Diltiazem 60 mg TID. 4. VHD -Mild aortic stenosis and mild mitral regurgitation, stable. Follow as clinically indicated. Unilateral leg swelling likely related to injury. Follow up in about 1 year (around 08/31/2023). Leonidas Peters, PARA MACHINE OPERATOR-REPORTING COORDINATOR [facility] Cardiovascular Medicine [facility] Evaluation note Note Date & Type Note [...] section and content) DATE CREATED AUTHOR 05/20/2019 [facility] DATE CREATED AUTHOR AUTHOR'S ORGANIZ ATION 09/27/2022 [facility] DATE CREATED AUTHOR AUTHOR'S ORGANIZ ATION 2023 [facility] DATE CREATED AUTHOR AUTHOR'S ORGANIZ ATION 03/11/2024 [facility] Special[facility] [employer] Care Teams (unrecognized sec tion and content) Peg Driver Relationship Specialty Start Date End Date Shaheed De La Torre MD [address] [place] [id number] PCP - General Family Medicine 08/19/23 Peg Driver Relationship Specialty Start Date End Date Shaheed De La Torre MD [address] [place] [address] PCP - General Family Medicine 08/19/23 Reason [...] BE BASED ON THE PRIMARY CLINICAL RECORDS. [facility]. provides no warranty or guarantee of the accuracy or completeness of information in this document.
== END 2024-03-22 13:28 | disposition home or self-care (01) ==
LOC: CARD 13:27
PROVIDERS: PCP Family Medicine; Visit Provider Internal Medicine Interventional Cardiology
DX: I35.0 Nonrheumatic aortic (valve) stenosis (principal)
CPT/HCPCS: 93306

== ENCOUNTER 2024-03-30 10:57 | Outpatient (OUT) | payer MEDICARE, SELFPAY ==
--- NOTE | 2024-03-30 11:00 | XR_ITS ---
The [address] [address] Patient Name: KOLTON NAPIER MRN: [id number] date: 1945 Sex: F Assigned Patient Location: [facility] Current Patient Location: Accession/Order Number: [id number] Exam Date: 03/30/2024 11:05 Report Date: 03/31/2024 09:45 At the request of: MAGGIE DIMAS Procedure: XR chest 2V EXAMINATION: XR chest 2V HISTORY: Pneumonia COMPARISON: XR chest 02/28/2024, XR L-spine 05/24/2018 FINDINGS: LUNGS: No significant pulmonary parenchymal abnormalities. VASCULATURE: No increased pulmonary vasculature. PLEURA: No pneumothorax, effusion, or pleural thickening. CARDIAC: No cardiomegaly or cardiac silhouette abnormality. MEDIASTINUM: No visible mass or adenopathy. BONES: Grossly stable mild to moderate compression fractures of approximately T11, T12, and L1. OTHER: Negative. XR/XR chest 2V IMPRESSION: 1. No acute cardiopulmonary process. Electronically authenticated by: KARL KAUR Date: 03/31/2024 09:45
--- OUTSIDE RECORDS SUMMARY | 2024-03-30 11:12 | XMS_ITS | CCD ---
Author Organization [facility] Care Team Providers Care Trim Sawyer Name Role Phone ADORE, DR MARIALUISA Anguiano [...] NADERER, DR SHAHEED Thomas Primary Care Unavailable KEAMS CANYON, DR MARIALUISA Anguiano Attending Unavailable WEST, DR MARIALUISA Anguiano Admitting Unavailable KEAMS CANYON, DR MARIALUISA Anguiano Consulting [facility] Thomas Primary Care Unavailable KEAMS CANYON, DR MARIALUISA Anguiano Attending Unavailable WEST, DR MARIALUISA Anguiano Admitting Unavailable WEST, DR MARIALUISA Anguiano Consulting Unavailable [facility], DR SHAHEED Thomas Primary Care Unavailable KEAMS CANYON, DR MARIALUISA Anguiano Attending Unavailable WEST, DR MARIALUISA Anguiano Admitting Unavailable Shaheed De La Torre MD Primary Care Provider EVE ADAMS Attending Unavailable LEONIDAS PETERS Attending Unavailable NADERER, SHAHEED Attending Unavailable NADERER, SHAHEED Attending Unavailable NADERER, SHHAEED Attending Unavailable NADERER, SHAHEED Attending Unavailable NADERER, SHAHEED Attending Unavailable Allergies Allergy Classification Reported Allergen(s) Allergy Type Date of Onset Reaction(s) Facility (1 source) Albuterol Drug Allergy [facility]ository (1 source) Penicillin Drug Allergy [facility] (3 sources) Albuterol Drug Allergy 9 Palpitations [facility] (3 sources) Cephalosporins (Antibiotic) Drug Allergy 3 Diarrhea, GI intolerance [facility] (4 sources) Penicillins; Translations: [PENICILLINS] Drug Allergy 8 GI intolerance [facility] (3 sources) cefdinir; Translations: [CEFDINIR] Drug Allergy 1 Diarrhea, GI intolerance [facility] (1 source) Albuterol; Translations: [ALBUTEROL SULFATE] Drug Allergy 9 [facility] Repository Medications Current Medications Medication Drug Class(es) Dates Sig (Normalized) Sig (Original) ALPRAZolam 0.5 mg oral tablet (3 sources) Benzodiazepine Start: 4 End: 4 take 0.5 tablet by mouth three times daily as needed for anxiety ALPRAZolam (Xanax) 0.5 MG tablet Indications: LAUREL (generalized anxiety disorder) ([facility]) Take 0.5 tablets (0.25 mg) [...] powder (3 sources) Polyene Antifungal nystatin (Mycostatin) 361936 UNIT/GM powder Apply 1 application topically in [...] 06-10-2023 Chronic Other aftercare (1 source) Other intermediate (current) drug therapy; Translations: [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] Onset: 3 Episodic Other [...] Range Facility Office Visiton 08-23-2023 Follow-up visit [id number] Pankaj Napier Martha 1945 F Date Provider Department Center 08/23/2023 [facility] Family History Problem Relation Age of Onset Coronary artery disease Mother Coronary artery disease Brother Family Status - Relation Status Age at Mother Brother Level of Service:71170 CT OFFICE/OUTPATIENT ESTABLISHED LOW MDM 20 MIN Normal [facility] MG MAMM SCREEN 3D SHARLENE CADon 09-24-2022 MG MAMM SCREEN 3D SHARLENE CAD Patient: KOLTON NAPIER Exam Date: 09/24/2022 : 1945 Gender:F Ordering : DR SHAHEED DE LA TORRE . Admission #: [id number] Family : Order #: [id number] CLICK HERE TO VIEW EXAM RADIOLOGY REPORT [...] stomach cancer at age 80. LOCATION: [facility] BREAST COMPOSITION: Scattered areas fibroglandular density. [...] M.D. on 09/25/2022 at 07:08 Normal [facility] Office Visiton 08-31-2022 Follow-up visit [id number] Pankaj Napier 1945 F Date Provider Department Center 08/31/2022 [id number] PETERS [facility] Family History Problem Relation Age of Onset Coronary artery disease Mother Coronary artery disease Brother Family Status - Relation Status Age at Mother Brother Level of Service:49186 CT OFFICE/OUTPATIENT ESTABLISHED MOD MDM 30-39 MIN Reason for Visit and Comments: Follow-up [148291] - 1 yr follow up Normal [facility] CBC AUTO DIFFon 07-17-2022 BASO # 0.1 103/ul Normal 0.0-0.1 [facility] Comment on above: Performed By: #### C BC ####[facility] [address] [place] [id number]. Fidencio Walker Basophils/100 WBC (Bld) 0.8 % Normal 0.2-2.0 [facility] Comment on above: Performed By: #### C BC ####[facility] Medmpawttv[address]93 [place], [place] [address]VkNeal Walker EO # 0.4 103/ul Normal 0.0-0.7 [facility] Comment on above: Performed By: #### C BC ####[facility] [address]uz[address] [place], [place] [address]Hq. Fidencio Walker Eosinophils/100 WBC (Bld) 4.7 % Normal 0.9-7.0 [facility] Comment on above: Performed By: #### C BC ####[facility] [address] [place] [address]Dr. Fidencio Walker Erythrocyte distribution width (RBC) [Ratio] 13.0 % Normal 11.0-15.0 [facility] Comment on above: Performed By: #### C BC ####[facility] [address]es[address]un[address] [place] [address]Dr. Fidencio Walker Hematocrit (Bld) [Volume fraction] 43.0 % Normal 36.0-48.0 [facility] Comment on above: Performed By: #### C BC ####[facility] [address] [place], [place] [address]Dr. Fidencio Walker Hemoglobin (Bld) [Mass/Vol] 13.1 g/dL Normal 12.0-16.0 [facility] Comment on above: Performed By: #### C BC ####[facility] [address] [place], [place] [address]Dr. Fidencio Walker IG # 0.02 10e3/ul Normal 0.00-0.03 [facility] Comment on above: Performed By: #### C BC ####[facility] [address] [place], [place] [address]Dr. Fidencio Walker IG % 0.3 % Normal 0.0-0.5 [facility] Comment on above: Performed By: #### C BC ####[facility] [address] [place], [place] [address]Dr. Fidencio Walker LYMPH # 2.2 103/ul Normal 1.2-3.8 [facility] Comment on above: Performed By: #### C BC ####[facility] [address]pt[address] [place], [place] [address]Dr. Fidencio Walker Lymphocytes/100 WBC (Bld) 28.7 % Normal 20.5-60.0 [facility] Comment on above: Performed By: #### C BC ####[facility] [address] [place], [place] [address]Dr. Fidencio Walker MANUAL DIFF REQ NO Normal [facility] Comment on above: Performed By: #### C BC ####[facility] I[address] [place] [address]Dr. Fidencio Aaron MCH (RBC) [Entitic mass] 30.9 pg Normal 26.7-34.0 [facility] Comment on above: Performed By: #### C BC ####[facility] W[address]qmzqxvs[address] [place] [address]Dr. Fidencio Aaron MCHC (RBC) [Mass/Vol] 30.5 g/dL Normal 29.9-35.2 [facility] Comment on above: Performed By: #### C BC ####[facility] [address]emsgd[address] [place] [address]Dr. Fidencio Walker MCV (RBC) [Entitic vol] 101.4 fL Critically high 81.0-99.0 [facility] Comment on above: Performed By: #### C BC ####[facility] [address] [place], [place] [address]Dr. Fidencio Walker MONO # 0.5 103/ul Normal 0.3-0.8 [facility] Comment on above: Performed By: #### C BC ####[facility] [address]mesiq[address] [place], [place] [address]Dr. Fidencio Walker Monocytes/100 WBC (Bld) 7.1 % Normal 1.7-12.0 [facility] Comment on above: Performed By: #### C BC ####[facility] [address] [place], [place] [address]DrNeal Walker NEUT # 4.4 103/ul Normal 1.4-6.5 [facility] Comment on above: Performed By: #### C BC ####[facility] [address] [place], [place] [address]DrNeal Walker Neutrophils/100 WBC (Bld) 58.4 % Normal 43.0-75.0 [facility] Comment on above: Performed By: #### C BC ####[facility] [address] [place], [place] [address]DrNeal Walker Platelet mean volume (Bld) [Entitic vol] 10.8 fL Normal 9.5-13.5 [facility] Comment on above: Performed By: #### C BC ####[facility] [address] [place], [place] [address]Sl. Fidencio Walker PLT 200 103/ul Normal 150-450 [facility] Comment on above: Performed By: #### C BC ####[facility] [address]obwik[address] [place], [place] [address]Xa. Fidencio Walker RBC 4.24 106/ul Normal 4.20-5.40 [facility] Comment on above: Performed By: #### C BC ####[facility] [address]zbv[address]ypi[address] [place], [place] [address]Xl. Fidencio Walker WBC 7.5 103/ul Normal 4.0-11.0 [facility] Comment on above: Performed By: #### C BC ####[facility] [address] [place] [address]Dr. Fidencio Walker LIPID PROFILEon 07-17-2022 CHOL-HDL RATIO NORM SEE BELOW Normal [facility] Comment on above: Result Comment: 3.3 - 4.4 LOW RISK 4.4 - 7.1 AVERAGE RISK 7.1 - 11.0 MODERATE RISK >11.0 HIGH RISK Performed By: #### L IPID, LIVER, BMP ####[facility] [address] [place], [place] [address]Vt. Fidencio Walker Cholesterol [Mass/Vol] 134 mg/dL Normal <=200 [facility] Comment on above: Performed By: #### L IPID, LIVER, BMP ####[facility] [address]kc[address] [place], [place] [address]Lv. Fidencio Walker Cholesterol in HDL [Mass/Vol] 57 mg/dL Normal 40-60 [facility] Comment on above: Performed By: #### L IPID, LIVER, BMP ####[facility] [address]ovserseni[address] [place], [place] [address]Qm. Fidencio Walker Cholesterol in LDL [Mass/Vol] 59.6 mg/dL Normal [facility] Comment on above: Performed By: #### L IPID, LIVER, BMP ####[facility] [address]fxmpxrxs[address] [place] [address]Dr. Fidencio Walker Cholesterol.total/Ch olesterol in HDL [Mass ratio] 2.4 {ratio} Normal [facility] Comment on above: Performed By: #### L IPID, LIVER, BMP ####[facility] [address]ig[address] [place] [address]Dr. Fidencio Walker HDL NORMAL > or = 60 mg/dl - LO W CARDIOVASCULAR RISK <40 mg/dl - HIGH CARDIOVASCULAR RISK Normal [facility] Comment on above: Performed By: #### L IPID, LIVER, BMP ####[facility] Yxaz[address]qb[address] [place] [address]Dr. Fidencio Walker LDL CALC NORMAL SEE BELOW Normal [facility] Comment on above: Result Comment: <100 mg/dl OPTIMAL 100 - 129 mg/dl NEAR OR ABOVE OPTIMAL 130 - 159 mg/dl BORDERLINE HIGH 160 - 189 mg/dl HIGH >190 mg/dl VERY HIGH Performed By: #### L IPID, LIVER, BMP ####[facility] [address]fl[address] [place] [address]Dr. Galileanickolas Walker Triglyceride [Mass/Vol] 87 mg/dL Normal <=150 [facility] Comment on above: Performed By: #### L IPID, LIVER, BMP ####[facility] [address]vu[address] [place] [address]Dr. Fidencio Aaron VLDL CALC 17.4 mg/dL Normal [facility] Comment on above: Performed By: #### L IPID, LIVER, BMP ####[facility] Bef[address]zfajpg[address] [place] [address]Dr. Galileanickolas Aaron LIVER PROFILEon 07-17-2022 Albumin [Mass/Vol] 3.7 g/dL Normal 3.4-5.[address] [facility] Comment on above: Performed By: #### L IPID, LIVER, BMP ####[facility] [address]tk[address]vwf[address] [place] [address]Dr. Fidencio Walker Albumin/Globulin [Mass ratio] 1.0 {ratio} Normal [facility] Comment on above: Performed By: #### L IPID, LIVER, BMP ####[facility] [address]vx[address] [place] [address]Dr. Fidencio Walker ALP [Catalytic activity/Vol] 58 U/L Normal 46-116 [facility] Comment on above: Performed By: #### L IPID, LIVER, BMP ####[facility] [address]xonwgz24[address] [place] [address]Dr. Fidencio Walker ALT [Catalytic activity/Vol] 13 U/L Critically low 14-59 [facility] Comment on above: Performed By: #### L IPID, LIVER, BMP ####[facility] Oinrgmcqcl26[address] [place] [address]Dr. Fidencio Walker AST [Catalytic activity/Vol] 18 U/L Normal 15-37 [facility] Comment on above: Performed By: #### L IPID, LIVER, BMP ####[facility] [address]jale[address] [place] [address]Dr. Fidencio Walker BILI, CONJUGATED 0.1 mg/dL Normal 0.0-0.2 [facility] Comment on above: Performed By: #### L IPID, LIVER, BMP ####[facility] Anyejshdow[address] [place] [address]Dr. Fidencio Walker Bilirubin [Mass/Vol] 0.3 mg/dL Normal 0.2-1.0 [facility] Comment on above: Performed By: #### L IPID, LIVER, BMP ####[facility] [address]tf[address]alsckj[address] [place] [address]Dr. Fidencio Walker Globulin (S) [Mass/Vol] 3.6 g/dL Normal [facility] Comment on above: Performed By: #### L IPID, LIVER, BMP ####[facility] [address]wehpu[address] [place] [address]Dr. Fidencio Walker Protein [Mass/Vol] 7.3 g/dL Normal 6.4-8.2 [facility] [place] Comment on above: Performed By: #### L IPID, LIVER, BMP ####[facility] Llnhmyvhtm[address] [place] [address]Dr. Fidencio Walker PROF CHEM 8 (BAS METB)on Anion gap [Moles/Vol] 11.3 mmol/L Normal [facility] Comment on above: Performed By: #### L IPID, LIVER, BMP ####[facility] [address] [place] [address]Dr. Fidencio Walker Calcium [Mass/Vol] 9.2 mg/dL Normal 8.5-10.1 [facility] Comment on above: Performed By: #### L IPID, LIVER, BMP ####[facility] [address]kcaj[address] [place] [address]Dr. Fidencio Walker Chloride [Moles/Vol] 102 mmol/L Normal 98-107 [facility] Comment on above: Performed By: #### L IPID, LIVER, BMP ####[facility] Rxdyntptbm[address] [place] [address]Dr. Fidencio Walker CO2 [Moles/Vol] 29.5 mmol/L Normal 21.0-32.0 [facility] Comment on above: Performed By: #### L IPID, LIVER, BMP ####[facility] [address]cqqzfe[address] [place] [address]Dr. Fidencio Walker Creatinine [Mass/Vol] 0.92 mg/dL Normal 0.55-1.02 [facility] Comment on above: Performed By: #### L IPID, LIVER, BMP ####[facility] [address] [place] [address]Dr. Fidencio Walker EGFR-AF NIUEAN >60 Normal >=60 [facility] Comment on above: Result Comment: Prev iously reported as: (blank) On 07/17/2022 13:28 By AJR Performed By: #### L IPID, LIVER, BMP ####[facility] [address]fw[address] [place] [address]Dr. Galileanickolas Walker EGFR-NON AF NIUEAN 59 mL/min/1.73m2 Critically low >=60 [facility] Comment on above: Result Comment: Prev iously reported as: (blank) On 07/17/2022 13:28 By AJR Performed By: #### L IPID, LIVER, BMP ####[facility] Kqwdafjlwj[address] [place] [address]Dr. Fidencio Walker Glucose [Mass/Vol] 98 mg/dL Normal 74-[address] [facility] Comment on above: Performed By: #### L IPID, LIVER, BMP ####[facility] [address]vpge[address] [place] [address]Dr. Fidencio Walker Potassium [Moles/Vol] 3.8 mmol/L Normal 3.5-5.1 [facility] Comment on above: Performed By: #### L IPID, LIVER, BMP ####[facility] [address]olnh[address] [place] [address]Dr. Fidencio Walker Sodium [Moles/Vol] 139 mmol/L Normal 136-[address] [facility] Comment on above: Performed By: #### L IPID, LIVER, BMP ####[facility] [address]kbpe[address] [place] [address]Dr. Fidencio Walker Urea nitrogen [Mass/Vol] 19.0 mg/dL Critically high 7.0-18.0 [facility] Comment on above: Performed By: #### L IPID, LIVER, BMP ####[facility] [address]qib[address] [place] [address]Dr. Fidencio Walker Urea nitrogen/Creatinine [Mass ratio] 20.7 mg/mg Normal [facility] Comment on above: Performed By: #### L IPID, LIVER, BMP ####[facility] [address]kybe[address]csq[address] [place] [address]Dr. Fidencio Walker VC INJ SCL BERTA RAISIN SEPARATOR OPERATOR VEINSon 1 VC INJ SCL BERTA RAISIN SEPARATOR OPERATOR VEINS Patient: KOLTON NAPIER Exam Date: 04/16/2022 : 1945 Gender:F Ordering : DR MARIALUISA AVITIA M.D. Admission #: [id number] Family : Order #: [id number] CLICK HERE TO VIEW EXAM RADIOLOGY REPORT PROCEDURE: VEIN CENTER INJECTION SCLEROSING SOLUTION MULTIPLE VEINS SAME COMPARISON: VC INJ SCL BERTA RAISIN SEPARATOR OPERATOR VEINS, 04/02/2022. VC INJ SCL BERTA RAISIN SEPARATOR OPERATOR VEINS, 03/24/2022. INDICATIONS: Pain co-occurrent and due [...] Avitia MD on 04/16/2022 at 14:34 Normal [facility] VC INJ SCL BERTA RAISIN SEPARATOR OPERATOR VEINSon 0 04-02-2022 VC INJ SCL BERTA RAISIN SEPARATOR OPERATOR VEINS Patient: KOLTON NAPIER Exam Date: 04/02/2022 : 1945 Gender:F Ordering : DR MARIALUISA AVITIA M.D. Admission #: [id number] Family : Order #: [id number] CLICK HERE TO VIEW EXAM RADIOLOGY REPORT PROCEDURE: VEIN CENTER INJECTION SCLEROSING SOLUTION MULTIPLE VEINS SAME COMPARISON: VC INJ SCL BERTA RAISIN SEPARATOR OPERATOR VEINS, 03/24/2022. INDICATIONS: Pain co-occurrent and due [...] Vaughan M.D. on 04/02/2022 at 15:47 Normal [facility] VC INJ SCL BERTA RAISIN SEPARATOR OPERATOR VEINSon 0 03-24-2022 VC INJ SCL BERTA RAISIN SEPARATOR OPERATOR VEINS Patient: KOLTON NAPIER. Exam Date: 03/24/2022 : 1945 Gender:F Ordering : DR MARIALUISA AVITIA M.D. Admission #: [id number] Family : Order #: [id number] CLICK HERE TO VIEW EXAM RADIOLOGY REPORT PROCEDURE: VEIN CENTER INJECTION SCLEROSING SOLUTION MULTIPLE VEINS SAME COMPARISON: VC INJ SCL BERTA RAISIN SEPARATOR OPERATOR VEINS, 03/19/2022. VC INJ SCL BERTA RAISIN SEPARATOR OPERATOR VEINS, 03/10/2022. INDICATIONS: Pain co-occurrent and due [...] Avitia MD on 03/24/2022 at 13:41 Normal [facility] VC INJ SCL BERTA RAISIN SEPARATOR OPERATOR VEINSon 0 03-19-2022 VC INJ SCL BERTA RAISIN SEPARATOR OPERATOR VEINS Patient: KOLTON NAPIER. Exam Date: 03/19/2022 : 1945 Gender:F Ordering : DR MARIALUISA AVITIA M.D. Admission #: [id number] Family : Order #: [id number] CLICK HERE TO VIEW EXAM RADIOLOGY REPORT PROCEDURE: VEIN CENTER INJECTION SCLEROSING SOLUTION MULTIPLE VEINS SAME COMPARISON: VC INJ SCL BERTA RAISIN SEPARATOR OPERATOR VEINS, 03/10/2022. VC INJ SCL BERTA RAISIN SEPARATOR OPERATOR VEINS, 03/03/2022. INDICATIONS: Pain co-occurrent and due [...] Avitia MD on 03/19/2022 at 15:13 Normal [facility] VC INJ SCL BERTA RAISIN SEPARATOR OPERATOR VEINSon 0 03-10-2022 VC INJ SCL BERTA RAISIN SEPARATOR OPERATOR VEINS Patient: KOLTON NAPIER. Exam Date: 03/10/2022 : 1945 Gender:F Ordering : DR MARIALUISA AVITIA M.D. Admission #: [id number] Family : Order #: [id number] CLICK HERE TO VIEW EXAM RADIOLOGY REPORT PROCEDURE: VEIN CENTER INJECTION SCLEROSING SOLUTION MULTIPLE VEINS SAME COMPARISON: VC INJ SCL BERTA RAISIN SEPARATOR OPERATOR VEINS, 03/03/2022. INDICATIONS: Pain co-occurrent and due [...] Avitia MD on 03/10/2022 at 14:38 Normal [facility] VC INJ SCL BERTA RAISIN SEPARATOR OPERATOR VEINSon 0 03-03-2022 VC INJ SCL BERTA RAISIN SEPARATOR OPERATOR VEINS Patient: KOLTON NAPIER. Exam Date: 03/03/2022 : 1945 Gender:F Ordering : DR MARIALUISA AVITIA M.D. Admission #: [id number] Family : Order #: [id number] CLICK HERE TO VIEW EXAM RADIOLOGY REPORT [...] Avitia MD on 03/03/2022 at 15:25 Normal [facility] VC CONSULT FOLLOWUPon 2021 VC CONSULT FOLLOWUP Patient: CARTER NAPIER GALILEA MarthaNeal Exam Date: 02/25/2022 : 1945 Gender:F Ordering : DR MARIALUISA AVITIA M.D. Admission #: [id number] Family : Order #: [id number] CLICK HERE TO VIEW EXAM RADIOLOGY REPORT [...] Vaughan M.D. on 02/25/2022 at 15:41 Normal [facility] VC EXT VENOUS RT LIMITEDon 0 02-25-2022 VC EXT VENOUS RT LIMITED Patient: KOLTON NAPIER Exam Date: 02/25/2022 : 1945 Gender:F Ordering : DR MARIALUISA AVITIA M.D. Admission #: [id number] Family : Order #: [id number] CLICK HERE TO VIEW EXAM RADIOLOGY REPORT [...] Vaughan M.D. on 02/25/2022 at 15:39 Normal [facility] VC INJ FOAM SCLERO W US MLTI on 02-19-2022 VC INJ FOAM SCLERO W US MLTI Patient: KOLTON NAPIER. Exam Date: 02/19/2022 : 1945 Gender:F Ordering : DR MARIALUISA AVITIA M.D. Admission #: [id number] Family : Order #: [id number] CLICK HERE TO VIEW EXAM RADIOLOGY REPORT [...] Noah Vaughan M.D. on 02/20/2022 at 09:07 [facility] VC CONSULT FOLLOWUPon 2021 VC CONSULT FOLLOWUP Patient: CARTER NAPIER Exam Date: 02/10/2022 : 1945 Gender:F Ordering : DR MARIALUISA AVITIA M.D. Admission #: [id number] Family : Order #: [id number] CLICK HERE TO VIEW EXAM RADIOLOGY REPORT [...] Avitia MD on 02/10/2022 at 14:56 Normal [facility] VC EXT VENOUS RT LIMITEDon 0 02-10-2022 VC EXT VENOUS RT LIMITED Patient: KOLTON NAPIER Exam Date: 02/10/2022 : 1945 Gender:F Ordering : DR MARIALUISA AVITIA M.D. Admission #: [id number] Family : Order #: [id number] CLICK HERE TO VIEW EXAM RADIOLOGY REPORT [...] Avitia MD on 02/10/2022 at 14:38 Normal [facility] VC ENDOVENOUS ABL 1ST V RTon 02-03-2022 ENDOVENOUS ABL 1ST V RT Patient: KOLTON NAPIER Exam Date: 02/03/2022 : 1945 Gender:F Ordering : DR MARIALUISA AVITIA M.D. Admission #: [id number] Family : Order #: [id number] CLICK HERE TO VIEW EXAM RADIOLOGY REPORT [...] 02/03/2022 at 14:01 Normal [facility] COMP CONSULTATIONon 01-22 VC COMP CONSULTATION Patient: DO HERI NAPIER Exam Date: 01/22/2022 : 1945 Gender:F Ordering : DR MARIALUISA AVITIA M.D. Admission #: [id number] Family : Order #: [id number] CLICK HERE TO VIEW EXAM RADIOLOGY REPORT [...] Avitia MD on 01/22/2022 at 14:56 Normal [facility] VC VENOUS REFLUX SHARLENE LMTon 0 01-22-2022 VC VENOUS REFLUX SHARLENE LMT Patient: KOLTON NAPIER Exam Date: 01/22/2022 : 1945 Gender:F Ordering : DR MARIALUISA AVITIA M.D. Admission #: [id number] Family : Order #: [id number] CLICK HERE TO VIEW EXAM RADIOLOGY REPORT [...] chronic thrombus visualized Compressibility: Normal Flow: Normal Fisher Diving: Dist/med calf 2.7mm with 0s. Mid/med calf [...] Flow: 1.2s of reflux in popliteal vein Fisher Diving: Dist/med calf 4.7mm with 0s reflux. Tech [...] Avitia MD on 01/22/2022 at 14:18 Normal [facility] OBSOLETEon 05-15-2019 OBSOLETE Refill (KAROL) KOLTON NAPIER ([id number]) 1945 F Date Time Provider Department 05/15/19 JAMES JOHNSON During your visit today, we recorded the following information about you: Maribel Osorio Expediter II 05/16/2019 4:42 PM Signed Call from pharmacy requesting refill. Pending Prescriptions Disp Refills DILTIAZEM 30 MG TABLET 270 tablet 1 Sig: TAKE ONE TABLET BY MOUTH THREE TIMES A DAY FLORENCIA: Yes Patient last seen 05/30/18 Maribel Osorio Expediter II Allergies As of Date: 05/15/2019 Noted [...] by mouth three taylor* OMEPRAZOLE 40 MG CAPSULE,GIRS* Take 40 mg by mouth twice fani* [...] by JAMES JOHNSON MD on 05/20/19 Normal [facility] CNOVon 05-30-2018 CNOV Office Visit (CARDMN ) KOLTON NAPIER ([id number]) 1945 F Date Time Provider Department 05/30/18 2:00 PM JAMES JOHNSON During your visit today, we recorded the following information about you: Pulse Blood pressure Weight Height 114/minute 140/78 73.9 kg 1.626 m James Johnson MD, 05/30/2018 5:53 PM Signed [facility] Demond Carpenter Department of Cardiovascular Medicine SECTION OF CARDIAC PACING and ELECTROPHYSIOLOGY OUTPATIENT VISIT DATE May 30, 2018 OUTPATIENT VISIT TYPE NEW PRIMARY CARE PHYSICIAN: Shaheed De La Torre MD ([facility]) [address] [address] IMPRESSION/PLAN: The patient is very pleasant female [...] ECG today: Sinus tachycardia at [address] 154 ms, QRS 86 ms, QTC 460 ms. FOLLOW UP: Return in about 4 months (around 09/27/2018). This note was created using computerized ticketing clerk software and may therefore include some ticketing clerk errors including errors in gender and inappropriate words or phrases. I reviewed old records, obtained relevant HPI and PMH from the pt, examined the patient and created the above report. James Johnson MD May 30, 2018 Note to: Shaheed De La Torre MD ([facility] [facility]) [address] [place] [address] James Johnson MD, 05/30/2018 3:19 PM Signed If symptoms not improving in 7-10 days on low dose diltiazem, call. Referring Provider: REFERRAL, NO(HIST) [[id number]] Allergies As of Date: 05/30/2018 Noted Allergy [...] by JAMES JOHNSON MD on 05/30/18 Normal [facility] ECG COMPLETE W INTERPRETATIO Non 05-30-2018 ECG COMPLETE W INTERPRETATION NAME : KOLTON NAPIER PID : [id number] : 1945 Gender : Female Race : ORD : [id number] Procedure Date : May 30 2018 13:36:13 Edit Date : May 31 2018 13:51:33 Diagnosis:SINUS TACHYCARDIA WITH PREMATURE ATRIAL COMPLEXES OTHERWISE NORMAL ECG Confirmed by MD YAN TAMANNA ([id number]) on 05/31/2018 1:51:26 PM Ventricular Rate : 114 BPM Atrial Rate : 114 BPM P-R Interval : 154 ms QRS Duration : 86 ms Q-T Interval : 334 ms QTC Calculation(Bezet) : 460 ms P [place] : 37 degrees R [place] : 30 degrees T [place] : 46 degrees Test Reason : Location : 314 : [facility] Er Overread By : MD YAN TAMANNA Edited By : MD YAN TAMANNA Referred By : JAMES JOHNSON Acquired by : BHUMIKA SANCHEZ [facility] PROGRESSon 05-30-2018 PROGRESS HNO ID: [id number] Author: James Johnson MD Service: (none) Author Type: Physician Type: Progress Notes Filed: 05/30/2018 5:53 PM Note Text: [facility] [place] Demond Carpenter Department of Cardiovascular Medicine SECTION OF CARDIAC PACING and ELECTROPHYSIOLOGY OUTPATIENT VISIT DATE May 30, 2018 OUTPATIENT VISIT TYPE NEW PRIMARY CARE PHYSICIAN: Shaheed De La Torre MD ([facility]) [address] [place] [address] IMPRESSION/PLAN: The patient is very pleasant female [...] ECG today: Sinus tachycardia at [address] 154 ms, QRS 86 ms, QTC 460 ms. FOLLOW UP: Return in about 4 months (around 09/27/2018). This note was created using computerized ticketing clerk software and may therefore include some ticketing clerk errors including errors in gender and inappropriate words or phrases. I reviewed old records, obtained relevant HPI and PMH from the pt, examined the patient and created the above report. James Johnson MD May 30, 2018 Note to: Shaheed De La Torre MD ([facility]) [address] [place] [address] Normal [facility] Vital Signs Date Time Vital Sign Value Performing Clinician Jorgei tarahy 08-19-2023 14:36-0500 Body height 162.6 cm Shaheed De La Torre MD Work Phone: [facility] 08-19-2023 14:36-0500 Body mass index (BMI) [Ratio] 26.09 kg/m2 Shaheed De La Torre MD Work Phone: [facility] 08-19-2023 14:36-0500 Body temperature 98.1 [degF] Shaheed De La Torre MD Work Phone: [facility] 08-19-2023 14:36-0500 Body weight 68.95 kg Shaheed De La Torre MD Work Phone: [facility] 08-19-2023 14:36-0500 Diastolic blood pressure 70 mm[Hg] Shaheed De La Torre MD Work Phone: [facility] 08-19-2023 14:36-0500 Heart rate 71 /min Shaheed De La Torre MD Work Phone: [facility] 08-19-2023 14:36-0500 SaO2% (BldA) [Mass fraction] 98 % Shaheed De La Torre MD Work Phone: [facility] 08-19-2023 14:36-0500 Systolic blood pressure 108 mm[Hg] Shaheed De La Torre MD Work Phone: [facility] Encounters Encounter Date Encounter Type Care Provider Facility Start: 03-09-2024 End: 03-09-2024 ambulatory SHAHEED DE LA TORRE Not Available Start: 02-17-2024 End: 02-17-2024 ambulatory SHAHEED DE LA TORRE Not Available Start: 09-15-2023 End: 09-15-2023 ambulatory SHAHEED DE LA TORRE Not Available Start: 08-23-2023 End: 08-23-[address] [facility] Start: 08-19-2023 End: 08-19-2023 Office outpatient visit 25 minutes Shaheed De La Torre MD Work Phone: [facility] Comment on above: Benign [...] Shaheed De La Torre MD Work Phone: [facility] Start: 08-19-2023 Bamboo flowsheet Shaheed De La Torre MD Work Phone: [facility] Start: 06-10-2023 End: 06-10-2023 ambulatory SHAHEED DE LA TORRE Not Available Start: 09-24-2022 End: 09-25-[address] NOAH VAUGHAN Facility: Start: 08-31-2022 End: 08-31-2022 ambulatory LEONIDAS PETERS [facility] Start: 07-17-2022 End: 07-18-[address] SHAHEED DE LA TORRE Facility:[facility] Start: 04-16-2022 End: 04-17-[address] MARIALUISA AVITIA Facility:[facility] Start: 04-02-2022 End: 04-03-[address] MARIALUISA AVITIA Facility:[facility] Start: 03-24-2022 End: 03-25-[address] MARIALUISA AVITIA Facility:[facility] Start: 03-19-2022 End: 03-20-[address] MARIALUISA AVITIA Facility:[facility] Start: 03-10-2022 End: 03-11-[address] MARIALUISA AVIITA Facility:[facility] Start: 03-03-2022 End: 03-04-[address] [...] 08/19/2023 2:30 PM EST Office Visit [facility] [address] [place] [address] Shaheed De La Torre MD [address] [place] [address] [facility] Comment on above: Arrived Start: 08-19-2023 End: 08-19-2024 Basic metabolic 1998 panel - Serum or Plasma Basic metabolic panel Lab Routine Benign essential hypertension (CMS/HCC) Expected: 08/19/2023 (Approximate), Expires: 08/19/2024 [facility] Work Phone: Comment on above: Expected: 08/19/2023 (Approximate), Expires: 08/19/2024 Start: 08-19-2023 End: 08-19-2024 CBC W Auto Differential panel - Blood CBC and differential Lab Routine Encounter for long-term (current) use of medications Expected: 08/19/2023 (Approximate), Expires: 08/19/2024 [facility] Comment on above: Expected: 08/19/2023 (Approximate), Expires: 08/19/2024 Start: 08-19-2023 End: 08-19-2024 Hepatic function 2000 panel - Serum or Plasma Hepatic function panel Lab Routine Encounter for long-term (current) use of medications Expected: 08/19/2023 (Approximate), Expires: 08/19/2024 [facility] Comment on above: Expected: 08/19/2023 (Approximate), Expires: 08/19/2024 Start: 08-19-2023 End: 08-19-2024 Lipid 1996 panel - Serum or Plasma Lipid panel Lab Routine Dyslipidemia (CMS/HCC) Expected: 08/19/2023 (Approximate), Expires: 08/19/2024 [facility] Comment on above: Expected: 08/19/2023 (Approximate), Expires: 08/19/2024 Start: 1945 Medicare Annual Wellness (AWV) Medicare Annual Wellness (AWV) [facility] Payers Date Payer Category Payer Medicare [employer] MEDICARE A DVANTAGE AETNA MEDICARE REPLACEMENT [id number] 2022-Present [address] [place] [address] [id number] 1959 Medicare [id number] 1945 Unknown [id number] [id number]3 1945 Unknown [id number] 2.16.840.1.083947.3.579.2.593 1945 Unknown [id number] 2.16.840.1.135434.3.579.2.593 1945 Unknown [id number] 2.16.840.1.119223.3.579.2.593 1945 Unknown [id number] 2.16.840.1.976306.3.579.2.593 1945 Unknown [id number] 2.16.840.1.005023.3.579.2.593 1945 Unknown [id number] 2.16.840.1.223239.3.579.2.593 1945 Unknown [id number] 2.16.840.1.699137.3.579.2.593 1945 Unknown [id number] 2.16.840.1.082873.3.579.2.593 1945 Unknown [id number] 2.16.840.1.216015.3.579.2.593 1945 Unknown [id number] 2.16.840.1.551372.3.579.2.593 1945 Unknown [id number] 2.16.840.1.166250.3.579.2.593 1945 Unknown [id number] 2.16.840.1.549835.3.579.2.593 1945 Unknown [id number] 2.16.840.1.517244.3.579.2.1259 1945 Unknown [id number] 2.16.840.1.749367.3.579.2.1259 1945 Unknown [id number] 2.16.840.1.273108.3.579.2.1259 1945 Unknown [id number] 2.16.840.1.023939.3.579.2.1259 1945 Unknown [id number] 2.16.840.1.591724.3.579.2.1259 Social History Date Type Detail Facility Start: 06-10-2023 End: 08-19-2023 Tobacco smoking status NHIS Never smoked tobacco [facility] Start: 06-10-2023 End: 08-19-2023 Tobacco use and exposure Smokeless tobacco non-user [facility] Start: 06-10-2023 End: 08-19-2023 Alcohol intake Ex-drinker (finding) [facility] Start: 06-10-2023 End: 08-19-2023 History of Social function [facility] Start: 06-10-2023 End: 08-19-2023 Tobacco use panel [facility] Start: 06-10-2023 Alcohol Comment holiday [facility] Start: 1945 Sex Assigned At Not on file [facility] NEGATED: Highlighted rowStart: NINF History of tobacco use Passive smoker [facility] Progress note 08-23-2023 Note Date & Type Note Facility 08-23-2023 Note [facility] Note Chief Complaint: Patient [...] her echocardiogram Eve Adams MD, MPH, FACC, [facility], [facility] Interventional Cardiology Pager Email: [email or web address] History of Present illness Narrative 08-19-2023 [...] nervous or worry as much. Not as emra or irritable. Using xanax PRN and helps [...] Hepatic function panel documented in this encounter [facility] Progress note 08-31-2022 Note Date & Type Note Facility 08-31-2022 Note Patient is here toda y for 1yr follow up. Review of Systems All other systems reviewed and are negative. [facility] Progress note 08-31-2022 Note Date & [...] Chronic obstructive pulmonary disease, unspecified COPD type ([facility]/HCC) Paroxysmal SVT (supraventricular tachycardia) ([facility]) Plan 1. Hypertension -Controlled, continue [...] about 1 year (around 08/31/2023). Leonidas Peters, PATIENT CARE DIRECTOR-BULLARD OPERATOR [facility] Physicians Cardiovascular Medicine [facility] Evaluation note Note Date & Type [...] section and content) DATE CREATED AUTHOR 05/20/2019 [facility] DATE CREATED AUTHOR AUTHOR'S ORGANIZ ATION 09/27/2022 [facility] DATE CREATED AUTHOR AUTHOR'S ORGANIZ ATION 2023 [facility] DATE CREATED AUTHOR AUTHOR'S ORGANIZ ATION 03/11/2024 [facility] dical Specialists EPIC Care Teams (unrecognized sec tion and content) Trim Sawyer Relationship Specialty Start Date End Date Shaheed De La Torre MD [address] [place] [id number] PCP - General Family Medicine 08/19/23 Trim Sawyer Relationship Specialty Start Date End Date Shaheed De La Torre MD [address] [place] [address] PCP - General Family Medicine 08/19/23 Reason [...] BE BASED ON THE PRIMARY CLINICAL RECORDS. [facility]. provides no warranty or guarantee of the accuracy or completeness of information in this document.
== END 2024-03-30 10:58 | disposition home or self-care (01) ==
LOC: RAD 10:57
PROVIDERS: PCP Family Medicine; Visit Provider Internal Medicine
DX: J18.9 Pneumonia, unspecified organism (principal)
CPT/HCPCS: 71046

== ENCOUNTER 2024-04-10 10:02 | Outpatient (RCR) | payer MEDICARE, SELFPAY | END 2024-04-18 10:56 | disposition home or self-care (01) | LOC: PT 10:02 | PROVIDERS: PCP Family Medicine; Visit Provider Family Medicine | DX: M79.604 Pain in right leg (principal) | CPT/HCPCS: 97035; 97110; 97140; 97161 ==

== ENCOUNTER 2024-05-30 09:00 | Outpatient (OUT) | payer MEDICARE, SELFPAY ==
--- OUTSIDE RECORDS SUMMARY | 2024-05-31 14:32 | XMS_ITS | CCD ---
Author Organization [facility] Care Team Providers Care Terrestrial Ecologist Name Role Phone ADORE, DR MARIALUISA Anguiano [...] Unavailable NADERER, DR SHAHEED Thomas Admitting Unavailable PARKS, DR MARIALUISA Anguiano Consulting Unavailable WIL, DR SHAHEED Thomas Primary Care Unavailable PARKS, DR MARIALUISA Anguiano Attending Unavailable WEST, DR MARIALUISA Anguiano Admitting Unavailable PARKS, DR MARIALUISA Anguiano Consulting Unavailable NADCHRISTIANO, DR SHAHEED Thomas Primary Care Unavailable PARKS, DR MARIALUISA Anguiano Attending Unavailable WEST, DR MARIALUISA Anguiano Admitting Unavailable WEST, DR MARIALUISA Anguiano Consulting Unavailable WIL, DR SHAHEED Thomas Primary Care Unavailable PARKS, DR MARIALUISA Anguiano Attending Unavailable WEST, DR [...] Facility (1 source) Albuterol Drug Allergy [facility] Repository (1 source) Penicillin Drug Allergy [facility] Repository (5 sources) Albuterol Drug Allergy 9 Palpitations [facility] (5 sources) Cephalosporins (Antibiotic) Drug Allergy 3 Diarrhea, GI intolerance [facility] (6 sources) Penicillins; Translations: [PENICILLINS] Drug Allergy 8 GI intolerance [facility] (5 sources) cefdinir; Translations: [CEFDINIR] Drug Allergy 1 Diarrhea, GI intolerance [facility] (1 source) Albuterol; Translations: [ALBUTEROL SULFATE] Drug Allergy 9 [facility] Repository Medications Current Medications Medication Drug Class(es) Dates Sig (Normalized) Sig (Original) ALPRAZolam 0.5 mg oral tablet (6 sources) Benzodiazepine Start: 02-17-2024 End: 05-19-2024 take 1 tablet by mouth three times daily as needed for anxiety ALPRAZolam (Xanax) 0.5 MG tablet Indications: LAUREL (generalized anxiety disorder) ([facility]) Take 1 tablet (0.5 mg) by mouth 3 (three) times a day as needed for anxiety 90 tablet 04/19/2024 Active Start: 08-03-2023 End: 10-02-2023 take 0.5 tablet by mouth three times daily as needed for anxiety ALPRAZolam (Xanax) 0.5 MG tablet Indications: LAUREL (generalized anxiety disorder) ([facility]) Take 0.5 tablets (0.25 mg) by mouth 3 (three) times a day as needed for anxiety 90 tablet 0 08/03/2023 10/02/2023 Active benzonatate 200 mg oral capsule (5 sources) Non-narcotic Antitussive Start: 08-03-2023 End: 02-21-2025 take 1 capsule by mouth three times daily as needed for cough benzonatate (Tessalon) 200 MG capsule Indications: Chronic cough Take 1 capsule (200 mg) by mouth 3 (three) times a day as needed for cough Do not crush or chew. 90 capsule 3 02/22/2024 02/21/2025 Active calcium polycarbophil 625 mg oral tablet (2 sources) Start: 09-15-2023 take 2 tablets by mouth once daily polycarbophil (FiberCon) 625 MG tablet Indications: Chronic idiopathic constipation Take 2 tablets (1,250 mg) by mouth Daily 60 tablet 5 09/15/2023 Active cyclobenzaprine hydrochloride 10 mg oral tablet (2 sources) Muscle Relaxant Start: 02-17-2024 take 1 tablet by mouth in the morning, then take 1 tablet by mouth in the evening, then take 1 tablet by mouth at bedtime cyclobenzaprine (Flexeril) 10 MG tablet Indications: Lumbosacral spinal stenosis Take 1 tablet (10 mg) by mouth in the morning and 1 tablet (10 mg) in the evening and 1 tablet (10 mg) before bedtime. 30 tablet 2 02/17/2024 Active dicyclomine hydrochloride 20 mg oral tablet (2 sources) Anticholinergic Start: 02-17-2024 take 1 tablet by mouth four times daily as needed dicyclomine (Bentyl) 20 MG tablet Indications: Viral gastroenteritis Take 1 tablet (20 mg) by mouth 4 (four) times a day as needed (Abdominal cramping) 30 tablet 1 02/17/2024 Active dilTIAZem hydrochloride 60 mg oral tablet (5 sources) Calcium Channel Nate take 1 tablet by mouth in the morning, then take 1 tablet by mouth in the evening, then take 1 tablet by mouth at bedtime dilTIAZem (Cardizem) 60 MG immediate release tablet Take 1 tablet by mouth in the morning and 1 tablet in the evening and 1 tablet before bedtime. Active FLUoxetine 40 mg oral capsule (5 sources) Serotonin Reuptake Inhibitor Start: 02-03-2024 take 1 capsule by mouth once daily FLUoxetine (PROzac) 40 MG capsule Indications: MDD (major depressive disorder), recurrent episode, moderate (CMS/HCC) Take 1 capsule (40 mg) by mouth Daily 30 capsule 3 02/03/2024 Active Start: 06-10-2023 take 1 capsule by mo [facility] in the morning FLUoxetine (PROzac) 40 MG capsule Indications: MDD (major depressive disorder), recurrent episode, moderate (HCC) (CMS/HCC) Take 1 capsule (40 mg) by mouth in the morning. 30 capsule 3 06/10/2023 Active 30 actuat fluticasone furoate 0.1 mg/actuat / umeclidinium 0.0625 mg/actuat / vilanterol 0.025 mg/actuat dry powder inhaler (5 sources) Anticholinergic, Corticosteroid, beta2-Adrenergic Agonist Start: 01-14-2023 Mzrxfnxtuaf-Rmjnqixkr-Awcmxh (Trelegy Ellipta) 100-62.5-25 MCG/ACT aerosol powder 01/14/2023 Active End: 08-19-2023 take 1 puff(s) by inhalation in the morning Mfojisnvdxe-Kbgosdoad-Bijyrb (Trelegy Ellipta) 100-62.5-25 MCG/ACT aerosol powder Inhale 1 puff in the morning. 0 08/19/2023 Discontinued (Therapy completed) hydroCHLOROthiazide 25 mg / losartan potassium 100 mg oral tablet (5 sources) Thiazide Diuretic, Angiotensin 2 Receptor Nate Start: 07-09-2023 End: 07-08-2024 take 1 tablet by mouth in the morning losartan-hydroCHLOROthiazide (Hyzaar) 100-25 MG tablet Indications: Benign hypertension (CMS/HCC) Take 1 tablet by mouth in the morning. 90 tablet 3 07/09/2023 07/08/2024 Active ipratropium bromide 0.2 mg/ml inhalation solution (3 sources) Anticholinergic ipratropium (Atr ovent) 0.02 % nebulizer solution Take 3 mL by nebulization every 6 (six) hours 0 Active loratadine 10 mg oral tablet (5 sources) Start: 04-04-2024 End: 04-04-2025 take 1 tablet by mouth once daily loratadine (Claritin) 10 MG tablet Indications: Seasonal allergic rhinitis due to pollen Take 1 tablet (10 mg) by mouth Daily 30 tablet 11 04/04/2024 04/04/2025 Active take 1 tablet by mouth in the mo rning loratadine (Claritin) 10 MG tablet Take 1 tablet by mouth in the morning. 0 Active nystatin 100 unt/mg topical powder (5 sources) Polyene Antifungal nystatin (Myc ostatin) 041632 UNIT/GM powder Apply 1 application topically in the morning and 1 application before bedtime. Active omeprazole 40 mg delayed release oral capsule (5 sources) Proton Pump Inhibitor Start: End: take 1 capsule by mouth before mealtime omeprazole (PriLOSEC) [address] capsule Indications: GERD without esophagitis Take 1 capsule (40 mg) by mouth in the morning. Take before meals. Do not crush or chew.. 30 capsule 11 11/15/2023 11/14/2024 Active take 1 capsule by mouth before m ealtime omeprazole (PriLOSEC) [address] capsule Take 40 mg by mouth in the morning. Take before meals. Do not crush or chew. . 0 Active ondansetron 4 mg disintegrating oral tablet (2 sources) Serotonin-3 Receptor Antagonist Start: 02-17-2024 take 1 tablet by mouth every eight hours for nausea ondansetron ODT (Zofran-ODT) 4 MG disintegrating tablet Indications: Viral gastroenteritis Take 1 tablet (4 mg) by mouth every 8 (eight) hours if needed for nausea or vomiting 20 tablet 1 02/17/2024 Active polyethylene glycol 3350 74737 mg powder for oral solution (2 sources) Osmotic Laxative Start: 09-15-2023 polyethylene glycol, PEG, 3350 (MiraLax) 17 GM/SCOOP powder Indications: Chronic idiopathic constipation Take 17 g by mouth Daily 527 g 2 09/15/2023 Active potassium chloride 20 meq extended release oral tablet (7 sources) Start: 10-06-2023 End: 10-05-2024 take 1 tablet by mouth in the morning potassium chloride CR (K-Tab) 20 MEQ ER tablet Indications: Benign essential hypertension (CMS/HCC) Take 1 tablet (20 mEq) by mouth in the morning and 1 tablet (20 mEq) before bedtime. 60 tablet 11 10/06/2023 10/05/2024 Active Start: 07-07-2023 take 1 tablet by aissatou th in the morning potassium chloride CR (K-Tab) [...] completed) rosuvastatin calcium 10 mg oral tablet (5 sources) HMG-CoA Reductase Inhibitor Start: 07-09-2023 End: 07-08-2024 take 1 tablet by mouth in the morning rosuvastatin (Crestor) 10 MG tablet Indications: Dyslipidemia (CMS/HCC) Take 1 tablet (10 mg) by mouth in the morning. 90 tablet 3 07/09/2023 07/08/2024 Active Completed/Discontinued Medications Medication Drug Class(es) Dates Sig (Normalized) Sig (Original) levalbuterol 0.417 mg/ml inhalation solution (3 sources) beta2-Adrenergic Agonist End: 08-19-2023 levalbuterol (Xopenex) 1.25 MG/3ML nebulizer solution Take 1 ampule by nebulization in the morning and 1 ampule in the evening and 1 ampule before bedtime. 0 08/19/2023 Discontinued (Therapy completed) Problems Active Problems Problem Classification Problem Date Documented Da te Episodic/Chronic Anxiety disorders (8 sources) Generalized anxiety disorder; Translations: [Generalized anxiety disorder] Onset: 3 06-10-2023 Chronic Asthma (10 sources) Asthma-chronic obstructive pulmonary disease overlap syndrome; Translations: [Asthma-COPD overlap syndrome] Onset: 3 06-10-2023 Chronic Cardiac dysrhythmias (2 sources) Supraventricular tachycardia; Translations: [Supraventricular tachycardia] Onset: 2 Chronic Chronic obstructive pulmonary disease and bronchiectasis (2 sources) Chronic obstructive pulmonary disease, unspecified; Translations: [Chronic obstructive pulmonary disease, unspecified] Onset: 3 Chronic Disorders of lipid metabolism (8 sources) Hyperlipidemia, unspecified; Translations: [Dyslipidemia] Onset: 3 06-10-2023 Chronic Esophageal disorders (7 sources) Gastroesophageal reflux disease without esophagitis; Translations: [Gastro-esophageal reflux disease without esophagitis] Onset: 3 06-10-2023 Chronic Essential hypertension (13 sources) Essential (primary) hypertension; Translations: [Benign essential hypertension] Onset: 2 Chronic Heart valve disorders (9 sources) Mitral and aortic stenosis; Translations: [Rheumatic disorders of both mitral and aortic valves] Onset: 2 06-10-2023 Chronic Mood disorders (7 sources) Recurrent major depressive episodes, moderate ; Translations: [Major depressive disorder, recurrent, moderate] Onset: 3 06-10-2023 Chronic Osteoarthritis (5 sources) Arthritis of left foot; Translations: [Primary osteoarthritis, left ankle and foot] Onset: 3 06-10-2023 Chronic Other aftercare (1 source) Other fdc (current) drug therapy; Translations: [OTH SNF CURRENT DRUG THERAPY] Onset: 3 Episodic Other aftercare (4 sources) Patient encounter status; Translations: [Other fdc (current) drug therapy] Onset: 4 08-19-2023 Episodic Other connective tissue disease (2 sources) Pain in right lower limb; Translations: [Pain in right leg] Onset: 4 04-03-2024 Episodic Other gastrointestinal disorders (2 sources) Chronic idiopathic constipation; Translations: [Chronic idiopathic constipation] Onset: 3 09-15-2023 Chronic Other gastrointestinal disorders (3 sources) Therapeutic opioid induced constipation; Translations: [Drug induced constipation] Onset: 3 06-10-2023 Episodic Other skin disorders (2 sources) Seborrheic keratosis; Translations: [Other seborrheic keratosis] Onset: 4 04-03-2024 Episodic Other upper respiratory disease (7 sources) Allergic rhinitis due to pollen; Translations: [Allergic rhinitis due to pollen] Onset: 3 06-10-2023 Chronic Pneumonia (except that caused by tuberculosis or sexually transmitted disease) (2 sources) Bilateral pneumonia; Translations: [Pneumonia, unspecified organism] Onset: 4 03-09-2024 Episodic Residual codes; unclassified (1 source) Family history of malignant neoplasm of breast; Translations: [FAMILY HX MALIG NEOPLASM OF BREAST] Onset: 3 Episodic Residual codes; unclassified (1 source) Family history of malignant neoplasm of digestive organs; Translations: [FAM HX MALIG NEOPLASM DIGESTIV ORGN] Onset: 3 Episodic Past or Other Problems Problem Classification Problem Date Documented Da te Episodic/Chronic Cardiac dysrhythmias (7 sources) Sinus tachycardia; Translations: [Tachycardia, unspecified] Onset: 2 06-10-2023 Episodic Fluid and electrolyte disorders (5 sources) Hypokalemia; Translations: [Hypokalemia] Onset: 3 06-10-2023 Episodic Intestinal infection (2 sources) Viral gastroenteritis; Translations: [Viral intestinal infection, unspecified] Onset: 4 02-17-2024 Episodic Other aftercare (4 sources) Encounter for surgical aftercare following surgery on the circulatory system; Translations: [ENC SURG AFTRCARE FLW SURG CIRC SYS] Onset: 2 Episodic Other aftercare (2 sources) Long-term current use of drug therapy; Translations: [Other terminal operations supervisor (current) drug therapy] Onset: 4 08-19-2023 Episodic Other connective tissue disease (5 sources) Pain in left foot; Translations: [Pain in left foot] Onset: 3 Resolved: 4 06-10-2023 Episodic Other injuries and conditions due to external causes (5 sources) At low risk for fall; Translations: [History of falling] Onset: 3 06-10-2023 Episodic Other lower respiratory disease (2 sources) Other forms of dyspnea; Translations: [Other forms of dyspnea] Onset: 2 Episodic Other non-traumatic joint disorders (5 sources) Subtalar joint unstable; Translations: [Other instability, left foot] Onset: 3 06-10-2023 Episodic Other nutritional; endocrine; and metabolic disorders (5 sources) Overweight; Translations: [Overweight] Onset: 3 06-10-2023 Episodic Other screening for suspected conditions (not mental disorders or infectious disease) (9 sources) Encounter for screening mammogram for malignant neoplasm of breast; Translations: [Patient encounter status] Onset: 3 Episodic Other skin disorders (5 sources) Vesicular eczema; Translations: [Dyshidrosis [pompholyx]] Onset: 3 06-10-2023 Episodic Phlebitis; thrombophlebitis and thromboembolism (10 sources) Phlebitis and thrombophlebitis of superficial vessels of right lower extremity; Translations: [Thrombophlebitis of superficial veins of lower extremity] Onset: 2 Episodic Residual codes; unclassified (5 sources) Family history of cancer of colon; Translations: [Family history of malignant neoplasm of digestive organs] Onset: 3 06-10-2023 Episodic Spondylosis; intervertebral disc disorders; other back problems (7 sources) Lumbosacral stenosis; Translations: [Spinal stenosis, lumbosacral region] Onset: 3 06-10-2023 Episodic Varicose veins of lower extremity (10 sources) Varicose veins of bilateral lower extremities with pain; Translations: [Varicose veins of lower extremity] Onset: 2 Episodic Results Test Name Value Interpretation Reference Range Facility ALL HEMOGLOBINon 05-30-2024 Hemoglobin (Bld) [Mass/Vol] 13.1 g/dL 12.0 - 16.0 g/dL [facility] Office Visiton 08-23-2023 Follow-up visit [id number] Pankaj Napier 1945 F Date Provider Department Center 08/23/2023 [facility] [place] Family History Problem Relation Age of Onset Coronary artery disease Mother Coronary artery disease Brother Family Status - Relation Status Age at Mother Brother Level of Service:52265 [place] OFFICE/OUTPATIENT ESTABLISHED LOW MDM 20 MIN Normal [facility] MG MAMM SCREEN 3D SHARLENE CADon 09-24-2022 MG MAMM SCREEN 3D SHARLENE CAD Patient: KOLTON NAPIERNeal Exam Date: 09/24/2022 : 1945 Gender:F Ordering : DR SHAHEED DE LA TORRE . Admission #: [id number] Family : Order #: [id number] CLICK HERE TO VIEW EXAM RADIOLOGY REPORT [...] stomach cancer at age 80. LOCATION: [facility] BREAST COMPOSITION: Scattered areas fibroglandular density. FINDINGS: [...] Vaughan M.D. on 09/25/2022 at 07:08 Normal [facility] Office Visiton 08-31-2022 Follow-up visit [id number] Pankaj Napier 1945 F Date Provider Department Center 08/31/2022 [id number] PETERS [facility] Family History Problem Relation Age of Onset Coronary artery disease Mother Coronary artery disease Brother Family Status - Relation Status Age at Mother Brother Level of Service:90218 [place] OFFICE/OUTPATIENT ESTABLISHED MOD MDM 30-39 MIN Reason for Visit and Comments: Follow-up [223593] - 1 yr follow up Normal [facility] CBC AUTO DIFFon 07-17-2022 BASO # 0.1 103/ul Normal 0.0-0.1 [facility] Comment on above: Performed By: #### C BC ####[facility] [address] [place] [address]Dr. Fidencio Walker Basophils/100 WBC (Bld) 0.8 % Normal 0.2-2.0 [facility] Comment on above: Performed By: #### C BC ####[facility] [address] [place], [place] [address]Dr. Fidencio Walker EO # 0.4 103/ul Normal 0.0-0.7 [facility] Comment on above: Performed By: #### C BC ####[facility] [address] [place], [place] [address]Dr. Fidencio Walker Eosinophils/100 WBC (Bld) 4.7 % Normal 0.9-7.0 [facility] Comment on above: Performed By: #### C BC ####[facility] [address] [place], [place] [address]Dr. Fidencio Walker Erythrocyte distribution width (RBC) [Ratio] 13.0 % Normal 11.0-15.0 [facility] Comment on above: Performed By: #### C BC ####[facility] [address] [place], [place] [address]Dr. Fidencio Walker Hematocrit (Bld) [Volume fraction] 43.0 % Normal 36.0-48.0 [facility] Comment on above: Performed By: #### C BC ####[facility] [address] [place], [place] [address]Dr. Fidencio Walker Hemoglobin (Bld) [Mass/Vol] 13.1 g/dL Normal 12.0-16.0 [facility] Comment on above: Performed By: #### C BC ####[facility] [address] [place], [place] [address]Dr. Fidencio Walker IG # 0.02 10e3/ul Normal 0.00-0.03 [facility] Comment on above: Performed By: #### C BC ####[facility] [address] [place], [place] [address]Dr. Fidencio Walker IG % 0.3 % Normal 0.0-0.5 [facility] Comment on above: Performed By: #### C BC ####[facility] [address] [place] [id number]. Galileanickolas Walker LYMPH # 2.2 103/ul Normal 1.2-3.8 [facility] Comment on above: Performed By: #### C BC ####[facility] [address] [place] [id number]. Galileanickolas Walker Lymphocytes/100 WBC (Bld) 28.7 % Normal 20.5-60.0 [facility] Comment on above: Performed By: #### C BC ####[facility] [address] [place] [address]Dr. Fidencio Walker MANUAL DIFF REQ NO Normal [facility] Comment on above: Performed By: #### C BC ####[facility] [address] [place] [address]Dr. Galileanickolas Walker MCH (RBC) [Entitic mass] 30.9 pg Normal 26.7-34.0 [facility] Comment on above: Performed By: #### C BC ####[facility] [address] [place] [address]Dr. Galileanickolas Walker MCHC (RBC) [Mass/Vol] 30.5 g/dL Normal 29.9-35.2 [facility] Comment on above: Performed By: #### C BC ####[facility] [address] [place] [address]Dr. Fidencio Walker MCV (RBC) [Entitic vol] 101.4 fL Critically high 81.0-99.0 [facility] Comment on above: Performed By: #### C BC ####[facility] [address] [place] [address]Dr. Fidencio Walker MONO # 0.5 103/ul Normal 0.3-0.8 [facility] Comment on above: Performed By: #### C BC ####[facility] [address] [place] [address]Dr. Fidencio Walker Monocytes/100 WBC (Bld) 7.1 % Normal 1.7-12.0 [facility] Comment on above: Performed By: #### C BC ####[facility] [address] [place] [id number]. Fidencio Walker NEUT # 4.4 103/ul Normal 1.4-6.5 [facility] Comment on above: Performed By: #### C BC ####[facility] [address] [place] [address]Dr. Fidencio Walker Neutrophils/100 WBC (Bld) 58.4 % Normal 43.0-75.0 [facility] Comment on above: Performed By: #### C BC ####[facility] [address] [place] [address]Dr. Fidencio Walker Platelet mean volume (Bld) [Entitic vol] 10.8 fL Normal 9.5-13.5 [facility] Comment on above: Performed By: #### C BC ####[facility] [address] [place] [address]Dr. Fidencio Walker PLT 200 103/ul Normal 150-450 [facility] Comment on above: Performed By: #### C BC ####[facility] [address] [place], [place] [address]Dr. Fidencio Walker RBC 4.24 106/ul Normal 4.20-5.40 [facility] Comment on above: Performed By: #### C BC ####[facility] [address] [place], [place] [address]Dr. Fidencio Walker WBC 7.5 103/ul Normal 4.0-11.0 [facility] Comment on above: Performed By: #### C BC ####[facility] [address] [place], [place] [address]Dr. Fidencio Walker LIPID PROFILEon 07-17-2022 CHOL-HDL RATIO NORM SEE BELOW Normal [facility] Comment on above: Result Comment: 3.3 - 4.4 LOW RISK 4.4 - 7.1 AVERAGE RISK 7.1 - 11.0 MODERATE RISK >11.0 HIGH RISK Performed By: #### L IPID, LIVER, BMP ####[facility] [address] [place] [address]Dr. Fidencio Walker Cholesterol [Mass/Vol] 134 mg/dL Normal <=200 [facility] Comment on above: Performed By: #### L IPID, LIVER, BMP ####[facility] [address] [place] [address]Dr. Fidencio Walker Cholesterol in HDL [Mass/Vol] 57 mg/dL Normal 40-60 [facility] Comment on above: Performed By: #### L IPID, LIVER, BMP ####[facility] [address] [place] [address]Dr. Fidencio Walker Cholesterol in LDL [Mass/Vol] 59.6 mg/dL Normal [facility] Comment on above: Performed By: #### L IPID, LIVER, BMP ####[facility] [address] [place] [address]Dr. Fidencio Walker Cholesterol.total/Ch olesterol in HDL [Mass ratio] 2.4 {ratio} Normal [facility] Comment on above: Performed By: #### L IPID, LIVER, BMP ####[facility] [address] [place] [address]Dr. Fidencio Walker HDL NORMAL > or = 60 mg/dl - LO W CARDIOVASCULAR RISK <40 mg/dl - HIGH CARDIOVASCULAR RISK Normal [facility] Comment on above: Performed By: #### L IPID, LIVER, BMP ####[facility] [address] [place] [address]Dr. Fidencio Walker LDL CALC NORMAL SEE BELOW Normal [facility] Comment on above: Result Comment: <100 mg/dl OPTIMAL 100 - 129 mg/dl NEAR OR ABOVE OPTIMAL 130 - 159 mg/dl BORDERLINE HIGH 160 - 189 mg/dl HIGH >190 mg/dl VERY HIGH Performed By: #### L IPID, LIVER, BMP ####[facility] [address] [place] [id number]. Fidencio Walker Triglyceride [Mass/Vol] 87 mg/dL Normal <=150 [facility] Comment on above: Performed By: #### L IPID, LIVER, BMP ####[facility] [address] [place] [id number]. Fidencio Walker VLDL CALC 17.4 mg/dL Normal [facility] Comment on above: Performed By: #### L IPID, LIVER, BMP ####[facility] [address] [place] [address]Dr. Galileanickolas Aaron LIVER PROFILEon 07-17-2022 Albumin [Mass/Vol] 3.7 g/dL Normal 3.4-5.0 [facility] Comment on above: Performed By: #### L IPID, LIVER, BMP ####[facility] [address] [place] [address]Dr. Fidencio Walker Albumin/Globulin [Mass ratio] 1.0 {ratio} Normal [facility] Comment on above: Performed By: #### L IPID, LIVER, BMP ####[facility] [address] [place] [address]Dr. Fidencio Walker ALP [Catalytic activity/Vol] 58 U/L Normal 46-116 [facility] Comment on above: Performed By: #### L IPID, LIVER, BMP ####[facility] [address] [place] [address]Dr. Fidencio Walker ALT [Catalytic activity/Vol] 13 U/L Critically low 14-59 [facility] Comment on above: Performed By: #### L IPID, LIVER, BMP ####[facility] [address] [place], [place] [address]Dr. Fidencio Walker AST [Catalytic activity/Vol] 18 U/L Normal 15-37 [facility] Comment on above: Performed By: #### L IPID, LIVER, BMP ####[facility] [address] [place] [address]Dr. Fidencio Walker BILI, CONJUGATED 0.1 mg/dL Normal 0.0-0.2 [facility] Comment on above: Performed By: #### L IPID, LIVER, BMP ####[facility] [address] [place], [place] [address]Dr. Fidencio Walker Bilirubin [Mass/Vol] 0.3 mg/dL Normal 0.2-1.0 [facility] Comment on above: Performed By: #### L IPID, LIVER, BMP ####[facility] [address] [place], [place] [address]Dr. Fidencio Walker Globulin (S) [Mass/Vol] 3.6 g/dL Normal [facility] Comment on above: Performed By: #### L IPID, LIVER, BMP ####[facility] [address] [place] [address]Dr. Fidencio Walker Protein [Mass/Vol] 7.3 g/dL Normal 6.4-8.[address] [facility] Comment on above: Performed By: #### L IPID, LIVER, BMP ####[facility] [address] [place] [address]Dr. Fidencio Walker PROF CHEM 8 (BAS METB)on Anion gap [Moles/Vol] 11.3 mmol/L Normal [facility] Comment on above: Performed By: #### L IPID, LIVER, BMP ####[facility] [address] [place] [address]Dr. Fidencio Walker Calcium [Mass/Vol] 9.2 mg/dL Normal 8.5-10.[address] [facility] Comment on above: Performed By: #### L IPID, LIVER, BMP ####[facility] [address] [place], [place] [address]Dr. Fidencio Walker Chloride [Moles/Vol] 102 mmol/L Normal 98-107 [facility] Comment on above: Performed By: #### L IPID, LIVER, BMP ####[facility] [address] [place] [address]Dr. Fidencio Walker CO2 [Moles/Vol] 29.5 mmol/L Normal 21.0-32.0 [facility] Comment on above: Performed By: #### L IPID, LIVER, BMP ####[facility] [address] [place] [address]Dr. Fidencio Walker Creatinine [Mass/Vol] 0.92 mg/dL Normal 0.55-1.02 [facility] Comment on above: Performed By: #### L IPID, LIVER, BMP ####[facility] [address] [place] [address]Dr. Fidencio Walker EGFR-AF CITIZEN [place] >60 Normal >=60 [facility] Comment on above: Result Comment: Prev iously reported as: (blank) On 07/17/2022 13:28 By AJR Performed By: #### L IPID, LIVER, BMP ####[facility] [address] [place] [address]Dr. Fidencio Walker EGFR-NON AF CITIZEN OF [place] 59 mL/min/1.73m2 Critically low >=60 [facility] Comment on above: Result Comment: Prev iously reported as: (blank) On 07/17/2022 13:28 By AJR Performed By: #### L IPID, LIVER, BMP ####[facility] [address] [place] [address]Dr. Fidencio Walker Glucose [Mass/Vol] 98 mg/dL Normal 74-[address] [facility] Comment on above: Performed By: #### L IPID, LIVER, BMP ####[facility] [address] [place] [address]Dr. Fidencio Walker Potassium [Moles/Vol] 3.8 mmol/L Normal 3.5-5.1 [facility] Comment on above: Performed By: #### L IPID, LIVER, BMP ####[facility] [address] [place], [place] [address]Dr. Fidencio Walker Sodium [Moles/Vol] 139 mmol/L Normal 136-[address] [facility] Comment on above: Performed By: #### L IPID, LIVER, BMP ####[facility] [address] [place] [address]Dr. Fidencio Walker Urea nitrogen [Mass/Vol] 19.0 mg/dL Critically high 7.0-18.0 [facility] Comment on above: Performed By: #### L IPID, LIVER, BMP ####[facility] [address] [place] [address]Dr. Fidencio Walker Urea nitrogen/Creatinine [Mass ratio] 20.7 mg/mg Normal [facility] Comment on above: Performed By: #### L IPID, LIVER, BMP ####[facility] [address] [place] [address]DrNeal Walker VC INJ SCL BERTA MONITOR TECH VEINSon 1 VC INJ SCL BERTA MONITOR TECH VEINS Patient: KOLTON NAPIER. Exam Date: 04/16/2022 : 1945 Gender:F Ordering : DR MARIALUISA AVITIA M.D. Admission #: [id number] Family : Order #: [id number] CLICK HERE TO VIEW EXAM RADIOLOGY REPORT PROCEDURE: VEIN CENTER INJECTION SCLEROSING SOLUTION MULTIPLE VEINS SAME COMPARISON: VC INJ SCL BERTA MONITOR TECH VEINS, 04/02/2022. VC INJ SCL BERTA MONITOR TECH VEINS, 03/24/2022. INDICATIONS: Pain co-occurrent and due [...] Marialuisa Avitia MD on 04/16/2022 at 14:34 [facility] VC INJ SCL BERTA MONITOR TECH VEINSon 0 04-02-2022 VC INJ SCL BERTA MONITOR TECH VEINS Patient: KOLTON NAPIER. Exam Date: 04/02/2022 : 1945 Gender:F Ordering : DR MARIALUISA AVITIA M.D. Admission #: [id number] Family : Order #: [id number] CLICK HERE TO VIEW EXAM RADIOLOGY REPORT PROCEDURE: VEIN CENTER INJECTION SCLEROSING SOLUTION MULTIPLE VEINS SAME COMPARISON: VC INJ SCL BERTA MONITOR TECH VEINS, 03/24/2022. INDICATIONS: Pain co-occurrent and due [...] Vaughan M.D. on 04/02/2022 at 15:47 Normal [facility] VC INJ SCL BERTA MONITOR TECH VEINSon 0 03-24-2022 VC INJ SCL BERTA MONITOR TECH VEINS Patient: KOLTON NAPIER. Exam Date: 03/24/2022 : 1945 Gender:F Ordering : DR MARIALUISA AVITIA M.D. Admission #: [id number] Family : Order #: [id number] CLICK HERE TO VIEW EXAM RADIOLOGY REPORT PROCEDURE: VEIN CENTER INJECTION SCLEROSING SOLUTION MULTIPLE VEINS SAME COMPARISON: VC INJ SCL BERTA MONITOR TECH VEINS, 03/19/2022. VC INJ SCL BERTA MONITOR TECH VEINS, 03/10/2022. INDICATIONS: Pain co-occurrent and due [...] Avitia MD on 03/24/2022 at 13:41 Normal [facility] VC INJ SCL BERTA MONITOR TECH VEINSon 0 03-19-2022 VC INJ SCL BERTA MONITOR TECH VEINS Patient: KOLTON NAPIER. Exam Date: 03/19/2022 : 1945 Gender:F Ordering : DR MARIALUISA AVITIA M.D. Admission #: [id number] Family : Order #: [id number] CLICK HERE TO VIEW EXAM RADIOLOGY REPORT PROCEDURE: VEIN CENTER INJECTION SCLEROSING SOLUTION MULTIPLE VEINS SAME COMPARISON: VC INJ SCL BERTA MONITOR TECH VEINS, 03/10/2022. VC INJ SCL BERTA MONITOR TECH VEINS, 03/03/2022. INDICATIONS: Pain co-occurrent and due [...] Avitia MD on 03/19/2022 at 15:13 Normal [facility] VC INJ SCL BERTA MONITOR TECH VEINSon 0 03-10-2022 VC INJ SCL BERTA MONITOR TECH VEINS Patient: KOLTON NAPIER Exam Date: 03/10/2022 : 1945 Gender:F Ordering : DR MARIALUISA AVITIA M.D. Admission #: [id number] Family : Order #: [id number] CLICK HERE TO VIEW EXAM RADIOLOGY REPORT PROCEDURE: VEIN CENTER INJECTION SCLEROSING SOLUTION MULTIPLE VEINS SAME COMPARISON: VC INJ SCL BERTA MONITOR TECH VEINS, 03/03/2022. INDICATIONS: Pain co-occurrent and due [...] Avitia MD on 03/10/2022 at 14:38 Normal [facility] VC INJ SCL BERTA MONITOR TECH VEINSon 0 03-03-2022 VC INJ SCL BERTA MONITOR TECH VEINS Patient: KOLTON NAPIER Exam Date: 03/03/2022 : 1945 Gender:F Ordering : DR MARIALUISA AVITIA M.D. Admission #: [id number] Family : Order #: [id number] CLICK HERE TO VIEW EXAM RADIOLOGY REPORT [...] Technically successful sclerotherapy as described Dictated by: Mraialuisa Avitia MD on 03/03/2022 at 15:24 Approved by: Marialuisa Avitia MD on 03/03/2022 at 15:25 Normal [facility] VC CONSULT FOLLOWUPon 2021 VC CONSULT FOLLOWUP Patient: CARTER NAPIER GALILEA Yusuf Exam Date: 02/25/2022 : 1945 Gender:F Ordering : DR MARIALUISA AVITIA M.D. Admission #: [id number] Family : Order #: [id number] CLICK HERE TO VIEW EXAM RADIOLOGY REPORT [...] Vaughan M.D. on 02/25/2022 at 15:41 Normal [facility] VC EXT VENOUS RT LIMITEDon 0 02-25-2022 VC EXT VENOUS RT LIMITED Patient: KOLTON NAPIER Exam Date: 02/25/2022 : 1945 Gender:F Ordering : DR MARIALUISA AVITIA M.D. Admission #: [id number] Family : Order #: [id number] CLICK HERE TO VIEW EXAM RADIOLOGY REPORT [...] Vaughan M.D. on 02/25/2022 at 15:39 Normal [facility] VC INJ FOAM SCLERO W US MLTI on 02-19-2022 VC INJ FOAM SCLERO W US MLTI Patient: KOLTON NAPIER Exam Date: 02/19/2022 : 1945 Gender:F Ordering : DR MARIALUISA AVITIA M.D. Admission #: [id number] Family : Order #: [id number] CLICK HERE TO VIEW EXAM RADIOLOGY REPORT [...] Noah Vaughan M.D. on 02/20/2022 at 09:07 [facility] CONSULT FOLLOWUPon 2021 VC CONSULT FOLLOWUP Patient: CARTER NAPIER. Exam Date: 02/10/2022 : 1945 Gender:F Ordering : DR MARIALUISA AVITIA M.D. Admission #: [id number] Family : Order #: [id number] CLICK HERE TO VIEW EXAM RADIOLOGY REPORT [...] Avitia MD on 02/10/2022 at 14:56 Normal [facility] VC EXT VENOUS RT LIMITEDon 0 02-10-2022 VC EXT VENOUS RT LIMITED Patient: KOLTON NAPIER Exam Date: 02/10/2022 : 1945 Gender:F Ordering : DR MARIALUISA AVITIA M.D. Admission #: [id number] Family : Order #: [id number] CLICK HERE TO VIEW EXAM RADIOLOGY REPORT [...] varicose veins *Exam performed in accordance with [facility] practice guidelines- Peripheral venous ultrasound, September 28, 2009. 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 Admission #: [id number] Family : Order #: [id number] CLICK HERE TO VIEW EXAM RADIOLOGY REPORT PROCEDURE: VEIN CENTER ENDOVENOUS ABLATION FIRST VEIN RIGHT COMPARISON: None. INDICATIONS: Pain co-occurrent and due to varicose veins of bilateral legs I83.813 OPERATIVE REPORT: The risks and benefits of the procedure had been previously discussed, and were rediscussed at length. Informed written consent was obtained by me and Jamie Babin assisted. Time out procedure was performed. The right [...] Vaughan M.D. on 02/03/2022 at 14:01 Normal [facility] COMP CONSULTATIONon 01-22 COMP CONSULTATION Patient: DO HERI NAPIER Exam Date: 01/22/2022 : 1945 Gender:F Ordering : DR MARIALUISA AVITIA M.D. Admission #: [id number] Family : Order #: [id number] CLICK HERE TO VIEW EXAM RADIOLOGY REPORT PROCEDURE: VC VEIN CENTER CONSULTATION VEIN CENTER - OFFICE [...] MD on 01/22/2022 at 14:48 Approved by: Marialusia Avitia MD on 01/22/2022 at 14:56 Normal [facility] VC VENOUS REFLUX SHARLENE LMTon 0 01-22-2022 VC VENOUS REFLUX SHARLENE LMT Patient: KOLTON NAPIER Exam Date: 01/22/2022 : 1945 Gender:F Ordering : DR MARIALUISA AVITIA M.D. Admission #: [id number] Family : Order #: [id number] CLICK HERE TO VIEW EXAM RADIOLOGY REPORT [...] chronic thrombus visualized Compressibility: Normal Flow: Normal Business Intelligence Developer: Dist/med calf 2.7mm with 0s. Mid/med calf [...] Flow: 1.2s of reflux in popliteal vein Business Intelligence Developer: Dist/med calf 4.7mm with 0s reflux. Tech [...] Avitia MD on 01/22/2022 at 14:18 Normal [facility] OBSOLETEon 05-15-2019 OBSOLETE Refill (CARDMN) KOLTON NAPIER ([id number]) 1945 F Date Time Provider Department 05/15/19 JAMES JOHNSON During your visit today, we recorded the following information about you: Maribel Jo Speedboat Operator II 05/16/2019 4:42 PM Signed Call from pharmacy requesting refill. Pending Prescriptions Disp Refills DILTIAZEM 30 MG TABLET 270 tablet 1 Sig: TAKE ONE TABLET BY MOUTH THREE TIMES A DAY FLORENCIA: Yes Patient last seen 05/30/18 Maribel Jo Speedboat Operator II Allergies As of Date: 05/15/2019 Noted Allergy Reaction PENICILLINS 05/30/2018 11 - Vomiting Date Reviewed: 05/30/2018 Reviewed by: Kathie Avery (Elijah) ELIJAH Chauhan - Fully Assessed Reason for [...] Status:Closed by JAMES JOHNSON MD on 05/20/19 [facility] CNOVon 05-30-2018 CNOV Office Visit (CARDMN ) KOLTON NAPIER ([id number]) 1945 F Date Time Provider Department 05/30/18 2:00 PM JAMES JOHNSON During your visit today, we recorded the following information about you: Pulse Blood pressure Weight Height 114/minute 140/78 73.9 kg 1.626 m James Johnson MD, 05/30/2018 5:53 PM [facility] [place] Demond Carpenter Department of Cardiovascular Medicine SECTION OF CARDIAC PACING and ELECTROPHYSIOLOGY OUTPATIENT VISIT DATE May 30, 2018 OUTPATIENT VISIT TYPE NEW PRIMARY CARE PHYSICIAN: Shaheed De La Torre MD ([facility]) [address] [place] [address] IMPRESSION/PLAN: The patient is very pleasant female [...] ECG today: Sinus tachycardia at 114 bpm. FL 154 ms, QRS 86 ms, QTC 460 ms. FOLLOW UP: Return in about 4 months (around 09/27/2018). This note was created using computerized wood floor refinisher software and may therefore include some wood floor refinisher errors including errors in gender and inappropriate words or phrases. I reviewed old records, obtained relevant HPI and PMH from the pt, examined the patient and created the above report. James Johnson MD May 30, 2018 Note to: Shaheed De La Torre MD ([facility]) [address] [place] [address] James Johnson MD, MD 05/30/2018 3:19 PM Signed If symptoms not improving in 7-10 days on low dose diltiazem, call. Referring Provider: REFERRAL, NO(HIST) [[id number]] Allergies As of Date: 05/30/2018 Noted Allergy [...] by JAMES JOHNSON MD on 05/30/18 Normal [facility] ECG COMPLETE W INTERPRETATIO Non 05-30-2018 ECG COMPLETE W INTERPRETATION NAME : KOLTON NAPIER PID : [id number] : 1945 Gender : Female Race : ORD : [id number] Procedure Date : May 30 2018 13:36:13 Edit Date : May 31 2018 13:51:33 Diagnosis:SINUS TACHYCARDIA WITH PREMATURE ATRIAL COMPLEXES OTHERWISE NORMAL ECG Confirmed by MD YAN TAMANNA ([id number]) on 05/31/2018 1:51:26 PM Ventricular Rate : 114 BPM Atrial Rate : 114 BPM P-R Interval : 154 ms QRS Duration : 86 ms Q-T Interval : 334 ms QTC Calculation(Bezet) : 460 ms P Willits : 37 degrees R Willits : 30 degrees T Willits : 46 degrees Test Reason : Location : 314 : J14 Overread By : MD YAN TAMANNA Edited By : MD YAN TAMANNA Referred By : JAMES JOHNSON Acquired by : BHUMIKA SANCHEZ [facility] PROGRESSon 05-30-2018 PROGRESS HNO ID: [id number] Author: James Johnson MD Service: (none) Author Type: Physician Type: Progress Notes Filed: 05/30/2018 5:53 PM Note Text: [facility] [place] Demond Carpenter Department of Cardiovascular Medicine SECTION OF CARDIAC PACING and ELECTROPHYSIOLOGY OUTPATIENT VISIT DATE May 30, 2018 OUTPATIENT VISIT TYPE NEW PRIMARY CARE PHYSICIAN: Shaheed De La Torre MD ([facility]) [address] [place] [id number] IMPRESSION/PLAN: The patient is very pleasant female [...] ECG today: Sinus tachycardia at 114 bpm. FL 154 ms, QRS 86 ms, QTC 460 ms. FOLLOW UP: Return in about 4 months (around 09/27/2018). This note was created using computerized wood floor refinisher software and may therefore include some wood floor refinisher errors including errors in gender and inappropriate words or phrases. I reviewed old records, obtained relevant HPI and PMH from the pt, examined the patient and created the above report. James Johnson MD May 30, 2018 Note to: Shaheed De La Torre MD ([facility]) [address] [place] [id number] Normal [facility] Vital Signs Date Time Vital Sign Value Performing Clinician Faci lity 08-19-2023 14:36-0500 Body height 162.6 cm Shaehed De La Torre MD Work Phone: [facility] 08-19-2023 14:36-0500 Body mass index (BMI) [Ratio] 26.09 kg/m2 Shaheed De La Torre MD Work Phone: [facility] 08-19-2023 14:36-0500 Body temperature 98.1 [degF] Shaheed De La Torre MD Work Phone: [facility] 08-19-2023 14:36-0500 Body weight 68.95 kg Shaheed De La Torre MD Work Phone: [facility] 08-19-2023 14:36-0500 Diastolic blood pressure 70 mm[Hg] Shaheed De La Torre MD Work Phone: [facility] 08-19-2023 14:36-0500 Heart rate 71 /min Shaheed De La Torre MD Work Phone: [facility] 08-19-2023 14:36-0500 SaO2% (BldA) [Mass fraction] 98 % Shaheed De La Torre MD Work Phone: [facility] 08-19-2023 14:36-0500 Systolic blood pressure 108 mm[Hg] Shaheed De La Torre MD Work Phone: [facility] Encounters Encounter Date Encounter Type Care Provider Facility Start: 05-30-2024 End: 05-30-2024 Clinisync Result Encounter Generic External Data Provider [facility] Unsolicited Start: 05-30-2024 End: 05-30-2024 Clinisync Result Encounter Generic External Data Provider [facility] External [facility] Unsolicited Start: 04-19-2024 End: 04-19-2024 Refill Shaheed De La Torre MD Work Phone: [facility] Comment on above: LAUREL (generalized anx iety disorder) ([facility] Start: 04-03-2024 End: 04-03-2024 ambulatory SHAHEED ROBLEDOERER Not Available Start: 03-09-2024 End: 03-09-2024 ambulatory SHAHEED ROBLEDOERER Not Available Start: 02-17-2024 End: 02-17-2024 ambulatory SHAHEED NADERER Not Available Start: 09-15-2023 End: 09-15-2023 ambulatory SHAHEED ROBLEDOERER Not Available Start: 08-23-2023 End: 08-23-2023 ambulatory [facility] Start: 08-19-2023 End: 08-19-2023 Office outpatient visit 25 minutes Shaheed De La Torre MD Work Phone: [facility] Comment on above: Benign essential hyp ertension (CMS/HCC) (Primary Dx); LAUREL (generalized anxiety disorder) (CMS/HCC); Lumbosacral spinal stenosis; Seasonal allergic rhinitis due to pollen; GERD without esophagitis; Dyslipidemia (CMS/HCC); Encounter for long-term (current) use of medications; MDD (major depressive disorder), recurrent episode, mild (HCC) (CMS/HCC) Start: 08-19-2023 End: 08-19-2023 ambulatory SHAHEED DE LA TORRE Not Available Start: 08-19-2023 BamTicketflyo flowsheet Shaheed De La Torre MD Work Phone: [facility] Start: 08-19-2023 NOMERMAIL.RUheet Shaheed De La Torre MD Work Phone: [facility] Start: 06-10-2023 End: 06-10-2023 ambulatory SHAHEED DE LA TORRE Not Available Start: 09-24-2022 End: 09-25-[address] NOAH VAUGHAN Facility:[facility] Start: 08-31-2022 End: 08-31-2022 ambulatory [facility] Start: 07-17-2022 End: 07-18-[address] SHAHEED [...] End: 01-23-[address] MARIALUISA AVITIA Facility:[facility] Procedures Date Procedure Procedure Detail Performing Clinician Start: 05-30-2024 ALL HEMOGLOBIN Generic External Data Provider Plan of Treatment Date Care Activity Detail Author Start: 08-22-2024 End: 08-22-2024 Patient encounter procedure 08/22/2024 1:15 PM EST Office Visit [facility] [address] [place] [phone] Shaheed De La Torre MD [address] [place] [phone] [facility] Start: 08-19-2023 End: 08-19-2023 Patient encounter procedure 08/19/2023 2:30 PM EST Office Visit [facility] [address] [place] [id number] Shaheed De La Torre MD [address] [place] [phone] Arrived [facility] Comment on above: Arrived Start: 08-19-2023 End: 08-19-2024 Basic metabolic 1998 panel - Serum or Plasma Basic metabolic panel Lab Routine Benign essential hypertension (CMS/HCC) Expected: 08/19/2023 (Approximate), Expires: 08/19/2024 [facility] Work Phone: Comment on above: Expected: 08/19/2023 (Approximate), Expires: 08/19/2024 Start: 08-19-2023 End: 08-19-2024 CBC W Auto Differential panel - Blood CBC and differential Lab Routine Encounter for long-term (current) use of medications Expected: 08/19/2023 (Approximate), Expires: 08/19/2024 [facility] Comment on above: Expected: 08/19/2023 (Approximate), Expires: 08/19/2024 Start: 08-19-2023 End: 08-19-2024 Hepatic function 2000 panel - Serum or Plasma Hepatic function panel Lab Routine Encounter for long-term (current) use of medications Expected: 08/19/2023 (Approximate), Expires: 08/19/2024 [facility] Comment on above: Expected: 08/19/2023 (Approximate), Expires: 08/19/2024 Start: 08-19-2023 End: 08-19-2024 Lipid 1996 panel - Serum or Plasma Lipid panel Lab Routine Dyslipidemia (CMS/HCC) Expected: 08/19/2023 (Approximate), Expires: 08/19/2024 [facility] Comment on above: Expected: 08/19/2023 (Approximate), Expires: 08/19/2024 Start: 1945 Medicare Annual Wellness (AWV) Medicare Annual Wellness (AWV) [facility] Payers Date Payer Category Payer Medicaid [employer] MEDICARE A DVANTAGE [id number] 2022 Medicare AETNA MEDICARE A DVANTAGE AETNA MEDICARE REPLACEMENT [id number] 2022-Present [address] [place] [address] [id number] 1959 Medicare [id number] 1945 Unknown [id number]3 1945 Unknown [id number] 2.16.840.1.707667.3.579.2.593 1945 Unknown [id number] 2.16.840.1.610305.3.579.2.593 1945 Unknown [id number] 2.16.840.1.049262.3.579.2.593 1945 Unknown [id number] 2.16.840.1.509646.3.579.2.593 1945 Unknown [id number] 2.16.840.1.580879.3.579.2.593 1945 Unknown [id number] 2.16.840.1.722824.3.579.2.593 1945 Unknown [id number] 2.16.840.1.979111.3.579.2.593 1945 Unknown [id number] 2.16.840.1.981721.3.579.2.593 1945 Unknown [id number] 2.16.840.1.145862.3.579.2.593 1945 Unknown [id number] 2.16.840.1.768385.3.579.2.593 1945 Unknown [id number] 2.16.840.1.901746.3.579.2.593 1945 Unknown [id number] 2.16.840.1.593546.3.579.2.593 1945 Unknown [id number] 2.16.840.1.590682.3.579.2.1259 1945 Unknown [id number] 2.16.840.1.919901.3.579.2.1259 1945 Unknown [id number] 2.16.840.1.323251.3.579.2.1259 1945 Unknown [id number] 2.16.840.1.922935.3.579.2.1259 1945 Unknown [id number] 2.16.840.1.525549.3.579.2.1259 1945 Unknown [id number] 2.16.840.1.722618.3.579.2.1259 Social History Date Type Detail Facility Start: 06-10-2023 End: 08-19-2023 Tobacco smoking status NHIS Never smoked tobacco [facility] Start: 06-10-2023 End: 08-19-2023 Tobacco use and exposure Smokeless tobacco non-user [facility] Start: 06-10-2023 End: 04-03-2024 Alcohol intake Ex-drinker (finding) [facility] Start: 06-10-2023 End: 08-19-2023 History of Social function [facility] Start: 06-10-2023 End: 08-19-2023 Tobacco use panel [facility] Start: 06-10-2023 Alcohol Comment [facility] [facility] 1945 Sex Assigned At Not on file [facility] NEGATED: Highlighted rowStart: KAYLEEF History of tobacco use Passive smoker [facility] Progress note 08-23-2023 Note Date & Type Note Facility 08-23-2023 Note [facility] Cardiology Clinic Note Chief Complaint: Patient here [...] history of COPD (chronic obstructive pulmonary disease) ([facility]), Heart murmur, Heart valve disease, Hypertension, Palpitations, [...] her echocardiogram Eve Adams MD, MPH, FACC, [facility] [place] Interventional Cardiology Pager Email: [email or web address] History of Present illness Narrative 08-19-2023 [...] panel Dyslipidemia (CMS/HCC) Relevant Orders Lipid panel LUAREL (generalized anxiety disorder) (CMS/HCC) Symptoms controlled with [...] Hepatic function panel documented in this encounter [facility] Progress note 08-31-2022 Note Date & Type Note Facility 08-31-2022 Note Patient is here toda y for 1yr follow up. Review of Systems All other systems reviewed and are negative. [facility] Progress note 08-31-2022 Note Date [...] about 1 year (around 08/31/2023). Leonidas Peters APRN-[facility] Cardiovascular Medicine [facility] Evaluation note Note Date & Type Note [...] mild (HCC) (CMS/HCC) documented in this encounter [facility] Evaluation note Note Date & Type Note Facility Evaluation note Diagnosis MDD (major depressive disorder), recurrent episode, moderate (CMS/HCC)- Primary Anxiety Anxiety state, unspecified LAUREL (generalized anxiety disorder) (CMS/HCC) Generalized anxiety disorder Benign essential hypertension (CMS/HCC)- Primary Essential hypertension, benign LAUREL (generalized anxiety disorder) (CMS/HCC) Generalized anxiety disorder Lumbosacral spinal stenosis Seasonal allergic rhinitis due to pollen GERD without esophagitis Esophageal reflux Dyslipidemia (CMS/HCC) Other and unspecified hyperlipidemia Encounter for long-term (current) use of medications Encounter for long-term (current) use of other medications MDD (major depressive disorder), recurrent episode, mild (HCC) (CMS/HCC) Chronic idiopathic constipation- Primary Unspecified constipation Benign essential hypertension (CMS/HCC) Essential hypertension, benign Benign essential hypertension (CMS/HCC)- Primary Essential hypertension, benign MDD (major depressive disorder), recurrent episode, mild (HCC) (CMS/HCC) LAUREL (generalized anxiety disorder) (CMS/HCC) Generalized anxiety disorder Lumbosacral spinal stenosis Viral gastroenteritis Intestinal infection due to other organism, NEC GERD without esophagitis Esophageal reflux Seasonal allergic rhinitis due to pollen Chronic obstructive pulmonary disease, unspecified (CMS/HCC) Pneumonia of both lower lobes due to infectious organism- Primary Mild intermittent asthma without complication (CMS/HCC) Benign essential hypertension (CMS/HCC) Essential hypertension, benign Seborrheic keratoses- Primary Leg pain, right Pain in soft tissues of limb LAUREL (generalized anxiety disorder) (CMS/HCC) Generalized anxiety disorder documented in this encounter [facility] Summary Purpose Family History No Family History Records FoundNo Family History Records FoundNo Family History Records FoundNo Family History Records Found Advance Directives No Advanced Directives Records FoundNo Advanced Directives Records FoundNo Advanced Directives Records FoundNo Advanced Directives Records Found Additional Source Comments INFORMATION SOURCE (unrecogn ized section and content) DATE CREATED AUTHOR 05/20/2019 [facility] DATE CREATED AUTHOR AUTHOR'S ORGANIZ ATION 09/27/[address] [facility] DATE CREATED AUTHOR AUTHOR'S ORGANIZ ATION 2023 [facility] DATE CREATED AUTHOR AUTHOR'S ORGANIZ ATION 04/03/2024 [facility] Care Teams (unrecognized sec tion and content) Terrestrial Ecologist Relationship Specialty Start Date End Date Shaheed De La Torre MD [address] [place] [phone] PCP - General Family Medicine 08/19/23 [employer]restrial [employer]ologist Relationship Specialty Start Date End Date Shaheed De La Torre MD [address] [place] [phone] PCP - General Family Medicine 08/19/23 Terrestrial Ecologist Relationship Specialty Start Date End Date Shaheed De La Torre MD [address] [place] [phone] PCP - General Family Medicine 08/19/23 Terrestrial Ecologist Relationship Specialty Start Date End Date Shaheed De La Torre MD [address] [place] [phone] PCP - General Family Medicine 08/19/23 Reason for Visit (unrecogniz ed section and content) Reason Comments Follow-up Reason Onset Date Comments Med Refill 04/19/2024 FOR RECORDS PERTAINING TO PATIENTS WHO ARE [...] BE BASED ON THE PRIMARY CLINICAL RECORDS. [facility] [employer] [facility]. provides no warranty or guarantee of the accuracy or completeness of information in this document.
== END 2024-05-30 09:01 | disposition home or self-care (01) ==
LOC: LAB 05-31 14:12
PROVIDERS: PCP Family Medicine; Visit Provider Internal Medicine
DX: J45.40 Moderate persistent asthma, uncomplicated (principal)
CPT/HCPCS: 36415; 85018

== ENCOUNTER 2024-06-05 08:39 | Outpatient (OUT) | payer MEDICARE, SELFPAY ==
[2024-05-30 08:55] LABS: Hemoglobin 13.1 g/dL (12.0-16.0)
--- OUTSIDE RECORDS SUMMARY | 2024-06-05 09:02 | XMS_ITS | CCD ---
Author Organization [facility] Care Team Providers Care Junior Marketing Associate Name Role Phone ADORE, DR MARIALUISA Anguiano [...] Unavailable NADERER, DR SHAHEED Thomas Admitting Unavailable PICTURE [place]S, DR MARIALUISA Anguiano Consulting Unavailable WIL, DR SHAHEED Thomas Primary Care Unavailable [place]URE [place], DR MARIALUISA Anguiano Attending Unavailable WEST, DR MARIALUISA Anguiano Admitting Unavailable [place], DR MARIALUISA Anguiano Consulting Unavailable NADCHRISTIANO, DR SHAHEED Thomas Primary Care Unavailable [place], DR MARIALUISA Anguiano Attending Unavailable WEST, DR MARIALUISA Anguiano Admitting Unavailable WEST, DR MARIALUISA Anguiano Consulting Unavailable WIL, DR SHAHEED Thomas Primary Care Unavailable [place]URE [place], DR MARIALUISA Anguiano Attending Unavailable WEST, DR [...] Facility (1 source) Albuterol Drug Allergy [facility] Repository (1 source) Penicillin Drug Allergy [facility] Repository (5 sources) Albuterol Drug Allergy 9 Palpitations [facility] (5 sources) Cephalosporins (Antibiotic) Drug Allergy 3 Diarrhea, GI intolerance [facility] Healthcare (6 sources) Penicillins; Translations: [PENICILLINS] Drug Allergy 8 GI intolerance [facility] Healthcare (5 sources) cefdinir; Translations: [CEFDINIR] Drug Allergy 1 Diarrhea, GI intolerance [facility] Healthcare (1 source) Albuterol; Translations: [ALBUTEROL SULFATE] Drug Allergy 9 [facility] Repository Medications Current Medications Medication Drug Class(es) Dates Sig (Normalized) Sig (Original) ALPRAZolam 0.5 mg oral tablet (6 sources) Benzodiazepine Start: 02-17-2024 End: 05-19-2024 take 1 tablet by mouth three times daily as needed for anxiety ALPRAZolam (Xanax) 0.5 MG tablet Indications: LAUREL (generalized anxiety disorder) ([facility]) Take 1 tablet (0.5 mg) by mouth 3 (three) times a day as needed for anxiety 90 tablet 04/19/2024 Active Start: 08-03-2023 End: 10-02-2023 take 0.5 tablet by mouth three times daily as needed for anxiety ALPRAZolam (Xanax) 0.5 MG tablet Indications: LAUREL (generalized anxiety disorder) ([facility]) Take 0.5 tablets (0.25 mg) by mouth [...] Start: 06-10-2023 take 1 capsule by mo [facility] in the morning FLUoxetine (PROzac) 40 MG capsule Indications: MDD (major depressive disorder), recurrent episode, moderate (HCC) (CMS/HCC) Take 1 capsule (40 mg) by mouth in the morning. 30 capsule 3 06/10/2023 Active 30 actuat fluticasone furoate 0.1 mg/actuat / umeclidinium 0.0625 mg/actuat / vilanterol 0.025 mg/actuat dry powder inhaler (5 sources) Anticholinergic, Corticosteroid, beta2-Adrenergic Agonist Start: 01-14-2023 Naweqqaqtpp-Vewpsnxpz-Yewsgx (Trelegy Ellipta) 100-62.5-25 MCG/ACT aerosol powder 01/14/2023 Active End: 08-19-2023 take 1 puff(s) by inhalation in the morning Znmlsqetcfk-Iraoicnrf-Cikhga (Trelegy Ellipta) 100-62.5-25 MCG/ACT aerosol powder Inhale [...] (5 sources) Polyene Antifungal nystatin (Myc ostatin) 549208 UNIT/GM powder Apply 1 application topically in [...] tablet 1 02/17/2024 Active polyethylene glycol 3350 44022 mg powder for oral solution (2 sources) [...] 06-10-2023 Chronic Other aftercare (1 source) Other fci (current) drug therapy; Translations: [OTH RETIREMENT CURRENT DRUG THERAPY] Onset: 3 Episodic Other [...] current use of drug therapy; Translations: [Other fci (current) drug therapy] Onset: [...] [Mass/Vol] 13.1 g/dL 12.0 - 16.0 g/dL [facility] Healthcare Office Visiton 08-23-2023 Follow-up visit [id number] Pankaj Napier 1945 F Date Provider Department Center 08/23/2023 [facility] Family History Problem Relation Age of Onset Coronary artery disease Mother Coronary artery disease Brother Family Status - Relation Status Age at Mother Brother Level of Service:42819 MO OFFICE/OUTPATIENT ESTABLISHED LOW MDM 20 MIN Normal [facility] MG MAMM SCREEN 3D SHARLENE CADon 09-24-2022 MG MAMM SCREEN 3D SHARLENE CAD Patient: KOLTON NAPIERNeal Exam Date: 09/24/2022 : 1945 Gender:F Ordering : DR SHAHEED DE LA TORRE . Admission #: [id number] Family : Order #: [id number] CLICK HERE TO VIEW EXAM RADIOLOGY REPORT [...] stomach cancer at age 80. LOCATION: [facility] BREAST COMPOSITION: Scattered areas fibroglandular density. FINDINGS: [...] Vaughan M.D. on 09/25/2022 at 07:08 Normal [facility] Office Visiton 08-31-2022 Follow-up visit [id number] Pankaj Napier 1945 F Date Provider Department Center 08/31/2022 [id number] Family History Problem Relation Age of Onset Coronary artery disease Mother Coronary artery disease Brother Family Status - Relation Status Age at Mother Brother Level of Service:72960 MO OFFICE/OUTPATIENT ESTABLISHED MOD MDM 30-39 MIN Reason for Visit and Comments: Follow-up [701736] - 1 yr follow up Normal [facility] CBC AUTO DIFFon 07-17-2022 BASO # 0.1 103/ul Normal 0.0-0.1 [facility] Comment on above: Performed By: #### C BC ####[facility] [address] [place] [address]Dr. Fidencio Walker Basophils/100 WBC (Bld) 0.8 % Normal 0.2-2.0 [facility] Comment on above: Performed By: #### C BC ####[facility] [address] [place], [place] [address]Dr. Fidencio Walker EO # 0.4 103/ul Normal 0.0-0.7 [facility] Comment on above: Performed By: #### C BC ####[facility] O[address]lxwvpy[address] [place], [place] [address]Dr. Fidencio Walker Eosinophils/100 WBC (Bld) 4.7 % Normal 0.9-7.0 [facility] Comment on above: Performed By: #### C BC ####[facility] Uwbyivnzlq[address] [place], [place] [address]Dr. Fidencio Walker Erythrocyte distribution width (RBC) [Ratio] 13.0 % Normal 11.0-15.0 [facility] Comment on above: Performed By: #### C BC ####[facility] Fvfq[address]pfze[address] [place], [place] [address]Dr. Fidencio Walker Hematocrit (Bld) [Volume fraction] 43.0 % Normal 36.0-48.0 [facility] Comment on above: Performed By: #### C BC ####[facility] Dudttzeskr[address] [place], [place] [address]Dr. Fidencio Walker Hemoglobin (Bld) [Mass/Vol] 13.1 g/dL Normal 12.0-16.0 [facility] Comment on above: Performed By: #### C BC ####[facility] Crgifvllef[address] [place], [place] [address]Dr. Fidencio Walker IG # 0.02 10e3/ul Normal 0.00-0.03 [facility] Comment on above: Performed By: #### C BC ####[facility] [address]szcne[address] [place], [place] [address]Dr. Fidencio Walker IG % 0.3 % Normal 0.0-0.5 [facility] Comment on above: Performed By: #### C BC ####[facility] [address] [place] [id number]. Galileanickolas Walker LYMPH # 2.2 103/ul Normal 1.2-3.8 [facility] Comment on above: Performed By: #### C BC ####[facility] [address]aggzj[address] [place] [id number]. Galileanickolas Walker Lymphocytes/100 WBC (Bld) 28.7 % Normal 20.5-60.0 [facility] Comment on above: Performed By: #### C BC ####[facility] [address] [place] [address]Dr. Fidencio Walker MANUAL DIFF REQ NO Normal [facility] Comment on above: Performed By: #### C BC ####[facility] [address] [place] [address]Dr. Galileanickolas Walker MCH (RBC) [Entitic mass] 30.9 pg Normal 26.7-34.0 [facility] Comment on above: Performed By: #### C BC ####[facility] [address] [place] [address]Dr. Galileanickolas Walker MCHC (RBC) [Mass/Vol] 30.5 g/dL Normal 29.9-35.2 [facility] Comment on above: Performed By: #### C BC ####[facility] [address]rql[address] [place] [address]Dr. Fidencio Walker MCV (RBC) [Entitic vol] 101.4 fL Critically high 81.0-99.0 [facility] Comment on above: Performed By: #### C BC ####[facility] [address] [place] [address]Dr. Fidencio Walker MONO # 0.5 103/ul Normal 0.3-0.8 [facility] Comment on above: Performed By: #### C BC ####[facility] By[address]isdvjl[address] [place] [address]Dr. Fidencio Walker Monocytes/100 WBC (Bld) 7.1 % Normal 1.7-12.0 [facility] Comment on above: Performed By: #### C BC ####[facility] [address]sp[address] [place] [id number]. Fidencio Walker NEUT # 4.4 103/ul Normal 1.4-6.5 [facility] Comment on above: Performed By: #### C BC ####[facility] [address] [place] [address]Dr. Fidencio Walker Neutrophils/100 WBC (Bld) 58.4 % Normal 43.0-75.0 [facility] Comment on above: Performed By: #### C BC ####[facility] C[address]xmxi[address] [place] [address]Dr. Fidencio Walker Platelet mean volume (Bld) [Entitic vol] 10.8 fL Normal 9.5-13.5 [facility] Comment on above: Performed By: #### C BC ####[facility] Ms[address]wehw[address] [place] [address]Dr. Fidencio Walker PLT 200 103/ul Normal 150-450 [facility] Comment on above: Performed By: #### C BC ####[facility] [address] [place], [place] [address]Dr. Fidencio Walker RBC 4.24 106/ul Normal 4.20-5.40 [facility] Comment on above: Performed By: #### C BC ####[facility] [address]byap[address] [place], [place] [address]Dr. Fidencio Walker WBC 7.5 103/ul Normal 4.0-11.0 [facility] Comment on above: Performed By: #### C BC ####[facility] Ytfq[address]qlmdh[address] [place], [place] [address]Dr. Fidencio Walker LIPID PROFILEon 07-17-2022 CHOL-HDL RATIO NORM SEE BELOW Normal [facility] Comment on above: Result Comment: 3.3 - 4.4 LOW RISK 4.4 - 7.1 AVERAGE RISK 7.1 - 11.0 MODERATE RISK >11.0 HIGH RISK Performed By: #### L IPID, LIVER, BMP ####[facility] [address]hs[address] [place] [address]Dr. Fidencio Walker Cholesterol [Mass/Vol] 134 mg/dL Normal <=200 [facility] Comment on above: Performed By: #### L IPID, LIVER, BMP ####[facility] [address]wmp[address] [place] [id number]. Fidencio Walker Cholesterol in HDL [Mass/Vol] 57 mg/dL Normal 40-60 [facility] Comment on above: Performed By: #### L IPID, LIVER, BMP ####[facility] [address]ocf[address] [place] [id number]. Fidencio Walker Cholesterol in LDL [Mass/Vol] 59.6 mg/dL Normal [facility] Comment on above: Performed By: #### L IPID, LIVER, BMP ####[facility] [address]lmik[address] [place] [id number]. Fidencio Walker Cholesterol.total/Ch olesterol in HDL [Mass ratio] 2.4 {ratio} Normal [facility] Comment on above: Performed By: #### L IPID, LIVER, BMP ####[facility] U[address]xzq[address] [place] [id number]. Fidencio Walker HDL NORMAL > or = 60 mg/dl - LO W CARDIOVASCULAR RISK <40 mg/dl - HIGH CARDIOVASCULAR RISK Normal [facility] Comment on above: Performed By: #### L IPID, LIVER, BMP ####[facility] [address]ap[address] [place] [id number]. Fidencio Walker LDL CALC NORMAL SEE BELOW Normal [facility] Comment on above: Result Comment: <100 mg/dl OPTIMAL 100 - 129 mg/dl NEAR OR ABOVE OPTIMAL 130 - 159 mg/dl BORDERLINE HIGH 160 - 189 mg/dl HIGH >190 mg/dl VERY HIGH Performed By: #### L IPID, LIVER, BMP ####[facility] [address]lem[address] [place] [id number]. Fidencio Walker Triglyceride [Mass/Vol] 87 mg/dL Normal <=150 [facility] Comment on above: Performed By: #### L IPID, LIVER, BMP ####[facility] [address]ajg[address] [place] [id number]. Fidencio Walker VLDL CALC 17.4 mg/dL Normal [facility] Comment on above: Performed By: #### L IPID, LIVER, BMP ####[facility] [address]zx[address] [place] [id number]. Galileanickolas Aaron LIVER PROFILEon 07-17-2022 Albumin [Mass/Vol] 3.7 g/dL Normal 3.4-5.0 [facility] Comment on above: Performed By: #### L IPID, LIVER, BMP ####[facility] E[address]haqwml[address] [place] [address]Dr. Fidencio Walker Albumin/Globulin [Mass ratio] 1.0 {ratio} Normal [facility] Comment on above: Performed By: #### L IPID, LIVER, BMP ####[facility] [address]nwqmxj[address] [place] [address]Dr. Fidencio Walker ALP [Catalytic activity/Vol] 58 U/L Normal 46-116 [facility] Comment on above: Performed By: #### L IPID, LIVER, BMP ####[facility] [address]wwivz[address] [place] [address]Dr. Fidencio Walker ALT [Catalytic activity/Vol] 13 U/L Critically low 14-59 [facility] Comment on above: Performed By: #### L IPID, LIVER, BMP ####[facility] E[address]cs[address]axz[address] [place], [place] [address]Dr. Fidencio Walker AST [Catalytic activity/Vol] 18 U/L Normal 15-37 [facility] Comment on above: Performed By: #### L IPID, LIVER, BMP ####[facility] [address]ao[address] [place] [address]Dr. Fidencio Walker BILI, CONJUGATED 0.1 mg/dL Normal 0.0-0.2 [facility] Comment on above: Performed By: #### L IPID, LIVER, BMP ####[facility] [address]yqob[address] [place], [place] [address]Dr. Fidencio Walker Bilirubin [Mass/Vol] 0.3 mg/dL Normal 0.2-1.0 [facility] Comment on above: Performed By: #### L IPID, LIVER, BMP ####[facility] Eewqgolxix[address] [place], [place] [address]Dr. Fidencio Walker Globulin (S) [Mass/Vol] 3.6 g/dL Normal [facility] Comment on above: Performed By: #### L IPID, LIVER, BMP ####[facility] [address] [place] [address]Dr. Fidencio Walker Protein [Mass/Vol] 7.3 g/dL Normal 6.4-8.2 [facility] Comment on above: Performed By: #### L IPID, LIVER, BMP ####[facility] [address]qevrtwty[address] [place] [address]Dr. Fidencio Walker PROF CHEM 8 (BAS METB)on Anion gap [Moles/Vol] 11.3 mmol/L Normal [facility] Comment on above: Performed By: #### L IPID, LIVER, BMP ####[facility] D[address]jrehieu[address] [place] [address]Dr. Fidencio Walker Calcium [Mass/Vol] 9.2 mg/dL Normal 8.5-10.1 [facility] Comment on above: Performed By: #### L IPID, LIVER, BMP ####[facility] Nqen[address]ea[address] [place], [place] [address]Dr. Fidencio Walker Chloride [Moles/Vol] 102 mmol/L Normal 98-107 [facility] Comment on above: Performed By: #### L IPID, LIVER, BMP ####[facility] [address]fleyx[address]hp[address] [place] [address]Dr. Fidencio Walker CO2 [Moles/Vol] 29.5 mmol/L Normal 21.0-32.0 [facility] Comment on above: Performed By: #### L IPID, LIVER, BMP ####[facility] [address]ngtai[address] [place] [address]Dr. Fidencio Walker Creatinine [Mass/Vol] 0.92 mg/dL Normal 0.55-1.02 [facility] Comment on above: Performed By: #### L IPID, LIVER, BMP ####[facility] [address]uch[address] [place] [address]Dr. Fidencio Walker EGFR-AF MONEGASQUE >60 Normal >=60 [facility] Comment on above: Result Comment: Prev iously reported as: (blank) On 07/17/2022 13:28 By AJR Performed By: #### L IPID, LIVER, BMP ####[facility] [address]qvp[address] [place] [address]Dr. Fidencio Walker EGFR-NON AF MONEGASQUE 59 mL/min/1.73m2 Critically low >=60 [facility] Comment on above: Result Comment: Prev iously reported as: (blank) On 07/17/2022 13:28 By AJR Performed By: #### L IPID, LIVER, BMP ####[facility] [address]ad[address]xc[address] [place] [address]Dr. Fidencio Walker Glucose [Mass/Vol] 98 mg/dL Normal 74-106 [facility] Comment on above: Performed By: #### L IPID, LIVER, BMP ####[facility] Spnprhydaf[address] [place] [address]Dr. Fidencio Walker Potassium [Moles/Vol] 3.8 mmol/L Normal 3.5-5.1 [facility] Comment on above: Performed By: #### L IPID, LIVER, BMP ####[facility] C[address]aw[address]iop[address] [place], [place] [address]Dr. Fidencio Walker Sodium [Moles/Vol] 139 mmol/L Normal 136-145 [facility] Comment on above: Performed By: #### L IPID, LIVER, BMP ####[facility] Rapbykvfbk[address] [place] [address]Dr. Fidencio Walker Urea nitrogen [Mass/Vol] 19.0 mg/dL Critically high 7.0-18.0 [facility] Comment on above: Performed By: #### L IPID, LIVER, BMP ####[facility] S[address]hcxaw[address] [place] [address]Dr. Fidencio Walker Urea nitrogen/Creatinine [Mass ratio] 20.7 mg/mg Normal [facility] Comment on above: Performed By: #### L IPID, LIVER, BMP ####[facility] [address] [place] [address]DrNeal Walker VC INJ SCL BERTA HAND EDGE BANDER VEINSon 1 VC INJ SCL BERTA HAND EDGE BANDER VEINS Patient: KOLTON NAPIER. Exam Date: 04/16/2022 : 1945 Gender:F Ordering : DR MARIALUISA AVITIA M.D. Admission #: [id number] Family : Order #: [id number] CLICK HERE TO VIEW EXAM RADIOLOGY REPORT PROCEDURE: VEIN CENTER INJECTION SCLEROSING SOLUTION MULTIPLE VEINS SAME COMPARISON: VC INJ SCL BETRA HAND EDGE BANDER VEINS, 04/02/2022. VC INJ SCL BERTA HAND EDGE BANDER VEINS, 03/24/2022. INDICATIONS: Pain co-occurrent and due [...] Marialuisa Avitia MD on 04/16/2022 at 14:34 [facility] VC INJ SCL BERTA HAND EDGE BANDER VEINSon 0 04-02-2022 VC INJ SCL BERTA HAND EDGE BANDER VEINS Patient: KOLTON NAPIER. Exam Date: 04/02/2022 : 1945 Gender:F Ordering : DR MARIALUISA AVITIA M.D. Admission #: [id number] Family : Order #: [id number] CLICK HERE TO VIEW EXAM RADIOLOGY REPORT PROCEDURE: VEIN CENTER INJECTION SCLEROSING SOLUTION MULTIPLE VEINS SAME COMPARISON: VC INJ SCL BERTA HAND EDGE BANDER VEINS, 03/24/2022. INDICATIONS: Pain co-occurrent and due [...] Vaughan M.D. on 04/02/2022 at 15:47 Normal [facility] VC INJ SCL BERTA HAND EDGE BANDER VEINSon 0 03-24-2022 VC INJ SCL BERTA HAND EDGE BANDER VEINS Patient: KOLTON NAPIER. Exam Date: 03/24/2022 : 1945 Gender:F Ordering : DR MARIALUISA AVITIA M.D. Admission #: [id number] Family : Order #: [id number] CLICK HERE TO VIEW EXAM RADIOLOGY REPORT PROCEDURE: VEIN CENTER INJECTION SCLEROSING SOLUTION MULTIPLE VEINS SAME COMPARISON: VC INJ SCL BERTA HAND EDGE BANDER VEINS, 03/19/2022. VC INJ SCL BERTA HAND EDGE BANDER VEINS, 03/10/2022. INDICATIONS: Pain co-occurrent and due [...] Avitia MD on 03/24/2022 at 13:41 Normal [facility] VC INJ SCL BERTA HAND EDGE BANDER VEINSon 0 03-19-2022 VC INJ SCL BERTA HAND EDGE BANDER VEINS Patient: KOLTON NAPIER. Exam Date: 03/19/2022 : 1945 Gender:F Ordering : DR MARIALUISA AVITIA M.D. Admission #: [id number] Family : Order #: [id number] CLICK HERE TO VIEW EXAM RADIOLOGY REPORT PROCEDURE: VEIN CENTER INJECTION SCLEROSING SOLUTION MULTIPLE VEINS SAME COMPARISON: VC INJ SCL BERTA HAND EDGE BANDER VEINS, 03/10/2022. VC INJ SCL BERTA HAND EDGE BANDER VEINS, 03/03/2022. INDICATIONS: Pain co-occurrent and due [...] Avitia MD on 03/19/2022 at 15:13 Normal [facility] VC INJ SCL BERTA HAND EDGE BANDER VEINSon 0 03-10-2022 VC INJ SCL BERTA HAND EDGE BANDER VEINS Patient: KOLTON NAPIER Exam Date: 03/10/2022 : 1945 Gender:F Ordering : DR MARIALUISA AVITIA M.D. Admission #: [id number] Family : Order #: [id number] CLICK HERE TO VIEW EXAM RADIOLOGY REPORT PROCEDURE: VEIN CENTER INJECTION SCLEROSING SOLUTION MULTIPLE VEINS SAME COMPARISON: VC INJ SCL BERTA HAND EDGE BANDER VEINS, 03/03/2022. INDICATIONS: Pain co-occurrent and due [...] Avitia MD on 03/10/2022 at 14:38 Normal [facility] VC INJ SCL BERTA HAND EDGE BANDER VEINSon 0 03-03-2022 VC INJ SCL BERTA HAND EDGE BANDER VEINS Patient: KOLTON NAPIER Exam Date: 03/03/2022 : 1945 Gender:F Ordering : DR MARIALUISA AVITIA M.D. Admission #: [id number] Family : Order #: [id number] CLICK HERE TO VIEW EXAM RADIOLOGY REPORT [...] Avitia MD on 03/03/2022 at 15:25 Normal [facility] VC CONSULT FOLLOWUPon 2021 VC CONSULT FOLLOWUP Patient: CARTER NAPIER GALILEA Yusuf Exam Date: 02/25/2022 : 1945 Gender:F Ordering : DR MARIALUISA AVITIA M.D. Admission #: [id number] Family : Order #: [id number] CLICK HERE TO VIEW EXAM RADIOLOGY REPORT [...] Vaughan M.D. on 02/25/2022 at 15:41 Normal [facility] VC EXT VENOUS RT LIMITEDon 0 02-25-2022 VC EXT VENOUS RT LIMITED Patient: KOLTON NAPIER Exam Date: 02/25/2022 : 1945 Gender:F Ordering : DR MARIALUISA AVITIA M.D. Admission #: [id number] Family : Order #: [id number] CLICK HERE TO VIEW EXAM RADIOLOGY REPORT [...] M.D. on 02/25/2022 at 15:39 Normal [facility] VC INJ FOAM SCLERO W US MLTI on 02-19-2022 VC INJ FOAM SCLERO W US MLTI Patient: KOLTON NAPIER Exam Date: 02/19/2022 : 1945 Gender:F Ordering : DR MARIALUISA AVITIA M.D. Admission #: [id number] Family : Order #: [id number] CLICK HERE TO VIEW EXAM RADIOLOGY REPORT [...] Noah Vaughan M.D. on 02/20/2022 at 09:07 [facility] CONSULT FOLLOWUPon 2021 VC CONSULT FOLLOWUP Patient: CARTER NAPIER. Exam Date: 02/10/2022 : 1945 Gender:F Ordering : DR MARIALUISA AVITIA M.D. Admission #: [id number] Family : Order #: [id number] CLICK HERE TO VIEW EXAM RADIOLOGY REPORT [...] Avitia MD on 02/10/2022 at 14:56 Normal [facility] VC EXT VENOUS RT LIMITEDon 0 02-10-2022 VC EXT VENOUS RT LIMITED Patient: KOLTON NAPIER Exam Date: 02/10/2022 : 1945 Gender:F Ordering : DR MARIALUISA AVITIA M.D. Admission #: [id number] Family : Order #: [id number] CLICK HERE TO VIEW EXAM RADIOLOGY REPORT [...] Avitia MD on 02/10/2022 at 14:38 Normal [facility] VC ENDOVENOUS ABL 1ST V RTon 02-03-2022 VC ENDOVENOUS ABL 1ST V RT Patient: KOLTON NAPIER Exam Date: 02/03/2022 : 1945 Gender:F Ordering : DR MARIALUISA AVITIA M.D. Admission #: [id number] Family : Order #: [id number] CLICK HERE TO VIEW EXAM RADIOLOGY REPORT [...] Vaughan M.D. on 02/03/2022 at 14:01 Normal [facility] COMP CONSULTATIONon 01-22 COMP CONSULTATION Patient: DO HERI NAPIER Exam Date: 01/22/2022 : 1945 Gender:F Ordering : DR MARIALUISA AVITIA M.D. Admission #: [id number] Family : Order #: [id number] CLICK HERE TO VIEW EXAM RADIOLOGY REPORT [...] Avitia MD on 01/22/2022 at 14:56 Normal [facility] VC VENOUS REFLUX SHARLENE LMTon 0 01-22-2022 VC VENOUS REFLUX SHARLENE LMT Patient: KOLTON NAPIER Exam Date: 01/22/2022 : 1945 Gender:F Ordering : DR MARIALUISA AVITIA M.D. Admission #: [id number] Family : Order #: [id number] CLICK HERE TO VIEW EXAM RADIOLOGY REPORT [...] chronic thrombus visualized Compressibility: Normal Flow: Normal Lead Javascript Engineer: Dist/med calf 2.7mm with 0s. Mid/med calf [...] Flow: 1.2s of reflux in popliteal vein Lead Javascript Engineer: Dist/med calf 4.7mm with 0s reflux. Tech [...] MD on 01/22/2022 at 14:18 Normal [facility] OBSOLETEon 05-15-2019 OBSOLETE Refill (CARDMN) KOLTON NAPIER ([id number]) 1945 F Date Time Provider Department 05/15/19 JAMES JOHNSON During your visit today, we recorded the following information about you: Maribel Jo Show Girl II 05/16/2019 4:42 PM Signed Call from pharmacy requesting refill. Pending Prescriptions Disp Refills DILTIAZEM 30 MG TABLET 270 tablet 1 Sig: TAKE ONE TABLET BY MOUTH THREE TIMES A DAY FLORENCIA: Yes Patient last seen 05/30/18 Maribel Jo Show Girl II Allergies As of Date: 05/15/2019 Noted [...] Status:Closed by JAMES JOHNSON MD on 05/20/[address] [facility] CNOVon 05-30-2018 CNOV Office Visit (CARDMN ) KOTLON NAPIER ([id number]) 1945 F Date Time Provider Department 05/30/18 2:00 PM JAMES JOHNSON During your visit today, we recorded the following information about you: Pulse Blood pressure Weight Height 114/minute 140/78 73.9 kg 1.626 m James Johnson MD, 05/30/2018 5:53 PM [facility] [place] Demond Carpenter Department of Cardiovascular Medicine SECTION OF CARDIAC PACING and ELECTROPHYSIOLOGY OUTPATIENT VISIT DATE May 30, 2018 OUTPATIENT VISIT TYPE NEW PRIMARY CARE PHYSICIAN: Shaheed De La Torre MD ([facility]) [address] [place] [address] IMPRESSION/PLAN: The patient is very pleasant female [...] ECG today: Sinus tachycardia at 114 bpm. MO 154 ms, QRS 86 ms, QTC 460 ms. FOLLOW UP: Return in about 4 months (around 09/27/2018). This note was created using computerized edge burnisher uppers software and may therefore include some edge burnisher uppers errors including errors in gender and inappropriate words or phrases. I reviewed old records, obtained relevant HPI and PMH from the pt, examined the patient and created the above report. James Johnson MD May 30, 2018 Note to: Shaheed De La Torre MD ([facility]) [address] [place] [address] James Johnson MD, MD 05/30/2018 3:19 PM Signed If symptoms not improving in 7-10 days on low dose diltiazem, call. Referring Provider: REFERRAL, NO(HIST) [[id number]] Allergies As of Date: 05/30/2018 Noted Allergy [...] by JAMES JOHNSON MD on 05/30/18 Normal [facility] ECG COMPLETE W INTERPRETATIO Non 05-30-2018 ECG COMPLETE W INTERPRETATION NAME : KOLTON NAPIER PID : [id number] : 1945 Gender : Female Race : ORD : [id number] Procedure Date : May 30 2018 13:36:13 Edit Date : May 31 2018 13:51:33 Diagnosis:SINUS TACHYCARDIA WITH PREMATURE ATRIAL COMPLEXES OTHERWISE NORMAL ECG Confirmed by MD YAN TAMANNA ([id number]) on 05/31/2018 1:51:26 PM Ventricular Rate : 114 BPM Atrial Rate : 114 BPM P-R Interval : 154 ms QRS Duration : 86 ms Q-T Interval : 334 ms QTC Calculation(Bezet) : 460 ms P [place] : 37 degrees R [place] : 30 degrees T [place] : 46 degrees Test Reason : Location : 314 : J14 Overread By : MD YAN TAMANNA Edited By : MD YAN TAMANNA Referred By : JAMES JOHNSON Acquired by : BHUMIKA SANCHZE [facility] PROGRESSon 05-30-2018 PROGRESS HNO ID: [id number] Author: James Johnson MD Service: (none) Author Type: Physician Type: Progress Notes Filed: 05/30/2018 5:53 PM Note Text: [facility] [place] Demond Carpenter Department of Cardiovascular Medicine SECTION OF CARDIAC PACING and ELECTROPHYSIOLOGY OUTPATIENT VISIT DATE May 30, 2018 OUTPATIENT VISIT TYPE NEW PRIMARY CARE PHYSICIAN: Shaheed De La Torre MD ([facility]) [address] [place] [id number] IMPRESSION/PLAN: The patient is very pleasant female [...] ECG today: Sinus tachycardia at 114 bpm. MO 154 ms, QRS 86 ms, QTC 460 ms. FOLLOW UP: Return in about 4 months (around 09/27/2018). This note was created using computerized edge burnisher uppers software and may therefore include some edge burnisher uppers errors including errors in gender and inappropriate words or phrases. I reviewed old records, obtained relevant HPI and PMH from the pt, examined the patient and created the above report. James Johnson MD May 30, 2018 Note to: Shaheed De La Torre MD ([facility]) [address] [place] [id number] Normal [facility] Vital Signs Date Time Vital Sign Value Performing Clinician Faci lity 08-19-2023 14:36-0500 Body height 162.6 cm Shaheed De La Torre MD Work Phone: [facility] 08-19-2023 14:36-0500 Body mass index (BMI) [Ratio] 26.09 kg/m2 Shaheed De La Torre MD Work Phone: [facility] 08-19-2023 14:36-0500 Body temperature 98.1 [degF] Shaheed De La Torre MD Work Phone: [facility] 08-19-2023 14:36-0500 Body weight 68.95 kg Shaheed De La Torre MD Work Phone: [facility] 08-19-2023 14:36-0500 Diastolic blood pressure 70 mm[Hg] Shaheed De La Torre MD Work Phone: [facility] 08-19-2023 14:36-0500 Heart rate 71 /min Shaheed De La Torre MD Work Phone: [facility] 08-19-2023 14:36-0500 SaO2% (BldA) [Mass fraction] 98 % Shaheed De La Torre MD Work Phone: [facility] 08-19-2023 14:36-0500 Systolic blood pressure 108 mm[Hg] Shaheed De La Torre MD Work Phone: [facility] Healthcare Encounters Encounter Date Encounter Type Care Provider Facility Start: 05-30-2024 End: 05-30-2024 Clinisync Result Encounter Generic External Data Provider [facility] External Department Unsolicited Start: 05-30-2024 End: 05-30-2024 Clinisync Result Encounter Generic External Data Provider [facility] External Department Unsolicited Start: 04-19-2024 End: 04-19-2024 Refill Shaheed De La Torre MD Work Phone: [facility] Comment on above: LAUREL (generalized anx iety disorder) ([facility] Start: 04-03-2024 End: 04-03-2024 ambulatory SHAHEED ROBLEDOERER Not Available Start: 03-09-2024 End: 03-09-2024 ambulatory SHAHEED ROBLEDOERER Not Available Start: 02-17-2024 End: 02-17-2024 ambulatory SHAHEED NADERER Not Available Start: 09-15-2023 End: 09-15-2023 ambulatory SHAHEED ROBLEDOERER Not Available Start: 08-23-2023 End: 08-23-2023 ambulatory [facility] Start: 08-19-2023 End: 08-19-2023 Office outpatient visit [...] DE LA TORRE Not Available Start: 08-19-2023 BamUnighto flowsheet Shaheed De La Torre MD Work Phone: [facility] Start: 08-19-2023 Automatticheet Shaheed De La Torre MD Work Phone: [facility] Start: 06-10-2023 End: 06-10-2023 ambulatory SHAHEED DE LA TORRE Not Available Start: 09-24-2022 End: 09-25-[address] NOAH VAUGHAN Facility:[facility] Start: 08-31-2022 End: 08-31-2022 ambulatory [facility] Start: 07-17-2022 End: 07-18-[address] [...] 08/22/2024 1:15 PM EST Office Visit [facility] [address] [place] [phone] Shaheed De La Torre MD [address] [place] [phone] [facility] Start: 08-19-2023 End: 08-19-2023 Patient encounter procedure 08/19/2023 2:30 PM EST Office Visit [facility] [address] [place] [phone] Shaheed De La Torre MD [address] [place] [phone] Arrived [facility] Comment on above: Arrived Start: 08-19-2023 End: 08-19-2024 Basic metabolic 1998 panel - Serum or Plasma Basic metabolic panel Lab Routine Benign essential hypertension (CMS/HCC) Expected: 08/19/2023 (Approximate), Expires: 08/19/2024 [facility] Work Phone: Comment on above: Expected: 08/19/2023 (Approximate), Expires: 08/19/2024 Start: 08-19-2023 End: 08-19-2024 CBC W Auto Differential panel - Blood CBC and differential Lab Routine Encounter for long-term (current) use of medications Expected: 08/19/2023 (Approximate), Expires: 08/19/2024 [facility] Healthcare Comment on above: Expected: 08/19/2023 (Approximate), Expires: 08/19/2024 Start: 08-19-2023 End: 08-19-2024 Hepatic function 2000 panel - Serum or Plasma Hepatic function panel Lab Routine Encounter for long-term (current) use of medications Expected: 08/19/2023 (Approximate), Expires: 08/19/2024 [facility] Healthcare Comment on above: Expected: 08/19/2023 (Approximate), Expires: 08/19/2024 Start: 08-19-2023 End: 08-19-2024 Lipid 1996 panel - Serum or Plasma Lipid panel Lab Routine Dyslipidemia (CMS/HCC) Expected: 08/19/2023 (Approximate), Expires: 08/19/2024 [facility] Healthcare Comment on above: Expected: 08/19/2023 (Approximate), Expires: 08/19/2024 Start: 1945 Medicare Annual Wellness (AWV) Medicare Annual Wellness (AWV) [facility] Healthcare Payers Date Payer Category Payer Medicaid [employer]NA MEDICARE A DVANTAGE [id number] 2022 Medicare AETNA MEDICARE A DVANTAGE AETNA MEDICARE REPLACEMENT [id number] 2022-Present [address] [place] [address] [id number] 1959 Medicare [id number] 1945 Unknown [id number] 2.16.840.1.430943.3.579.2.593 1945 Unknown [id number] 2.16.840.1.686510.3.579.2.593 1945 Unknown [id number] 2.16.840.1.285540.3.579.2.593 1945 Unknown [id number] 2.16.840.1.747734.3.579.2.593 1945 Unknown [id number] 2.16.840.1.212340.3.579.2.593 1945 Unknown [id number] 2.16.840.1.544764.3.579.2.593 1945 Unknown [id number] 2.16.840.1.991745.3.579.2.593 1945 Unknown [id number] 2.16.840.1.366651.3.579.2.593 1945 Unknown [id number] 2.16.840.1.055593.3.579.2.593 1945 Unknown [id number] 2.16.840.1.744017.3.579.2.593 1945 Unknown [id number] 2.16.840.1.286638.3.579.2.593 1945 Unknown [id number] 2.16.840.1.072373.3.579.2.593 1945 Unknown [id number] 2.16.840.1.321534.3.579.2.593 1945 Unknown [id number] 2.16.840.1.836803.3.579.2.1259 1945 Unknown [id number] 2.16.840.1.639379.3.579.2.1259 1945 Unknown [id number] 2.16.840.1.827750.3.579.2.1259 1945 Unknown [id number] 2.16.840.1.031400.3.579.2.1259 1945 Unknown [id number] 2.16.840.1.727236.3.579.2.1259 1945 Unknown [id number] 2.16.840.1.087506.3.579.2.1259 Social History Date Type Detail Facility Start: [...] Healthcare Start: 06-10-2023 Alcohol Comment [facility] Start: 1945 Sex Assigned At Not on file [facility] NEGATED: Highlighted rowStart: KAYLEEF History of tobacco use Passive smoker [facility] Progress note 08-23-2023 Note Date & Type Note Facility 08-23-2023 Note [facility] Cardiology Clinic Note Chief Complaint: Patient [...] history of COPD (chronic obstructive pulmonary disease) ([facility]), Heart murmur, Heart valve disease, Hypertension, Palpitations, [...] her echocardiogram Eve Adams MD, MPH, FACC, [facility], [facility] Interventional Cardiology Pager Email: [email or web address] History of Present illness Narrative 08-19-2023 Shaheed [...] Hepatic function panel documented in this encounter [facility] Progress note 08-31-2022 Note Date & Type Note Facility 08-31-2022 Note Patient is here toda y for 1yr follow up. Review of Systems All other systems reviewed and are negative. [facility] Progress note 08-31-2022 Note Date & [...] about 1 year (around 08/31/2023). Leonidas Peters APRN-[facility] Physicians Cardiovascular Medicine [facility] Evaluation note Note Date & Type [...] mild (HCC) (CMS/HCC) documented in this encounter [facility] Healthcare Evaluation note Note Date & [...] section and content) DATE CREATED AUTHOR 05/20/2019 [facility] DATE CREATED AUTHOR AUTHOR'S ORGANIZ ATION 09/27/2022 [facility] DATE CREATED AUTHOR AUTHOR'S ORGANIZ ATION 2023 [facility] DATE CREATED AUTHOR AUTHOR'S ORGANIZ ATION 04/03/2024 [facility] dical Specialists [facility] Care Teams (unrecognized sec tion and content) Junior Marketing Associate Relationship Specialty Start Date End Date Shaheed De La Torre MD [address] [place] [phone] PCP - General Family Medicine 08/19/23 Junior Marketing Associate Relationship Specialty Start Date End Date Shaheed De La Torre MD [address] [place] [phone] PCP - General Family Medicine 08/19/23 Junior Marketing Associate Relationship Specialty Start Date End Date Shaheed De La Torre MD [address] [place] [phone] PCP - General Family Medicine 08/19/23 Junior Marketing Associate Relationship Specialty Start Date End Date Shaheed De La Torre MD [address] [place] [phone] PCP - General Family Medicine 08/19/23 Reason [...] BE BASED ON THE PRIMARY CLINICAL RECORDS. [facility]. provides no warranty or guarantee of the accuracy or completeness of information in this document.
--- NOTE | 2024-06-05 09:47 | RT_ITS ---
[facility] Test Date: 2024-06-05 Pat Name: KOLTON NAPIER Department: Room: - Gender: Female Clinic Lpn: Licha Guerrero RRT : 1945 Requested By: Cisco Mckinnon Order Number: [id number] Reading MD: Cisco Mckinnon Interpretive Statements Pulmonary function testing was completed according to ATS criteria. Findings were considered accurate and reproducible. Both pre- and post-bronchodilator values utilized for spirometry. Spirometry (based on pre-bronchodilator values): -FEV1/FVC: Low normal @ 71% -FEV1: Normal @ 134% -FVC: Normal @ 139% -There is a positive bronchodilator response in FEV1. Lung volumes by plethysmography: -RV: Normal @ 109% -TLC: High normal @ 118% Diffusion capacity: -DLCO: Normal @ 92% when corrected for Hb 13.1g/dL Impressions: -Spirometry trends towards mild obstruction with a bronchodilator response. Normal lung volumes and diffusion capacity. Overall study would be compatible with mild asthma or reactive airway disease. Clinical correlation required. Electronically Signed On 06-06-2024 15:51:08 EST by Cisco Mckinnon
[2024-06-05] MEDS: ALBUTEROL SULFATE 2.5 MG/3 ML VIAL NEB IH (09:49)
== END 2024-06-05 08:40 | disposition home or self-care (01) ==
LOC: CARD 08:40
PROVIDERS: PCP Family Medicine; Visit Provider Internal Medicine
DX: J45.40 Moderate persistent asthma, uncomplicated (principal)
CPT/HCPCS: 94060; 94726; 94729

== ENCOUNTER 2024-06-27 07:23 | Emergency (ER) | payer MEDICARE, SELFPAY ==
[2024-06-27 07:31] VITALS: BP 153/98; PULSE 92; TEMP 37.4; O2SAT 96; BMI 31.9
--- OUTSIDE RECORDS SUMMARY | 2024-06-27 07:31 | XMS_ITS | CCD ---
Author Organization [facility] Care Team Providers Care Furnace Repairer Helper Name Role Phone ADORE, DR MARIALUISA Anguiano [...] SHAHEED Thomas Primary Care Unavailable WEST, DR MARIALIUSA Anguiano Attending Unavailable WEST, DR MARIALUISA Anguiano [...] Unavailable NADERER, DR SHAHEED Thomas Admitting Unavailable MORAGA, DR MARIALUISA Anguiano Consulting Unavailable WIL, DR SHAHEED Thomas Primary Care Unavailable MORAGA, DR MARIALUISA Anguiano Attending Unavailable WEST, DR MARIALUISA Anguiano Admitting Unavailable MORAGA, DR MARIALUISA Anguiano Consulting Unavailable NADCHRISTIANO, DR SHAHEED Thomas Primary Care Unavailable MORAGA, DR MARIALUISA Anguiano Attending Unavailable WEST, DR MARIALUISA Anguiano Admitting Unavailable WEST, DR MARIALUISA Anguiano Consulting Unavailable WIL, DR SHAHEDE Thomas Primary Care Unavailable MORAGA, DR MARIALUISA Anguiano Attending Unavailable WEST, DR [...] Facility (1 source) Albuterol Drug Allergy [facility] Repository (1 source) Penicillin Drug Allergy [facility] Repository (13 sources) Albuterol Drug Allergy 9 Palpitations [facility] Healthcare (13 sources) Cephalosporins (Antibiotic) Drug Allergy 3 Diarrhea, GI intolerance [facility] (14 sources) Penicillins; Translations: [PENICILLINS] Drug Allergy 8 GI intolerance [facility] Healthcare (13 sources) cefdinir; Translations: [CEFDINIR] Drug Allergy 1 Diarrhea, GI intolerance [facility] Healthcare (1 source) Albuterol; Translations: [ALBUTEROL SULFATE] Drug Allergy 9 [facility] Repository Medications Current Medications Medication Drug Class(es) Dates Sig (Normalized) Sig (Original) ALPRAZolam 0.5 mg oral tablet (14 sources) Benzodiazepine Start: 02-17-2024 End: 05-19-2024 take 1 tablet by mouth three times daily as needed for anxiety ALPRAZolam (Xanax) 0.5 MG tablet Indications: LAUREL (generalized anxiety disorder) ([facility]) Take 1 tablet (0.5 mg) by mouth 3 (three) times a day as needed for anxiety 90 tablet 04/19/2024 Active Start: 08-03-2023 End: 10-02-2023 take 0.5 tablet by mouth three times daily as needed for anxiety ALPRAZolam (Xanax) 0.5 MG tablet Indications: LAUREL (generalized anxiety disorder) ([facility]) Take 0.5 tablets (0.25 mg) by mouth 3 (three) times a day as needed for anxiety 90 tablet 0 08/03/2023 10/02/2023 Active benzonatate 200 mg oral capsule (13 sources) Non-narcotic Antitussive Start: 08-03-2023 End: 02-21-2025 take 1 capsule by mouth three times daily as needed for cough benzonatate (Tessalon) 200 MG capsule Indications: Chronic cough Take 1 capsule (200 mg) by mouth 3 (three) times a day as needed for cough Do not crush or chew. 90 capsule 3 02/22/2024 02/21/2025 Active calcium polycarbophil 625 mg oral tablet (10 sources) Start: 09-15-2023 take 2 tablets by mouth once daily polycarbophil (FiberCon) 625 MG tablet Indications: Chronic idiopathic constipation Take 2 tablets (1,250 mg) by mouth Daily 60 tablet 5 09/15/2023 Active cyclobenzaprine hydrochloride 10 mg oral tablet (10 sources) Muscle Relaxant Start: 02-17-2024 take 1 [...] Active dicyclomine hydrochloride 20 mg oral tablet (10 sources) Anticholinergic Start: 02-17-2024 take 1 tablet by mouth four times daily as needed dicyclomine (Bentyl) 20 MG tablet Indications: Viral gastroenteritis Take 1 tablet (20 mg) by mouth 4 (four) times a day as needed (Abdominal cramping) 30 tablet 1 02/17/2024 Active dilTIAZem hydrochloride 60 mg oral tablet (13 sources) Calcium Channel Nate take 1 tablet by mouth in the morning, then take 1 tablet by mouth in the evening, then take 1 tablet by mouth at bedtime dilTIAZem (Cardizem) 60 MG immediate release tablet Take 1 tablet by mouth in the morning and 1 tablet in the evening and 1 tablet before bedtime. Active FLUoxetine 40 mg oral capsule (14 sources) Serotonin Reuptake Inhibitor Start: 02-03-2024 End: 06-12-2024 take 1 capsule by mouth once daily FLUoxetine (PROzac) 40 MG capsule Indications: MDD (major depressive disorder), recurrent episode, moderate (CMS/HCC) Take 1 capsule (40 mg) by mouth Daily 90 capsule 3 06/12/2024 Active Start: 06-10-2023 take 1 capsule by mo ut in the morning FLUoxetine (PROzac) 40 MG capsule Indications: MDD (major depressive disorder), recurrent episode, moderate (HCC) (CMS/HCC) Take 1 capsule (40 mg) by mouth in the morning. 30 capsule 3 06/10/2023 Active 30 actuat fluticasone furoate 0.1 mg/actuat / umeclidinium 0.0625 mg/actuat / vilanterol 0.025 mg/actuat dry powder inhaler (13 sources) Anticholinergic, Corticosteroid, beta2-Adrenergic Agonist Start: 01-14-2023 Wozjwnqvfgu-Jbfvgutjn-Xygdgu (Trelegy Ellipta) 100-62.5-25 MCG/ACT aerosol powder 01/14/2023 Active End: 08-19-2023 take 1 puff(s) by inhalation in the morning Rfqvlizngzb-Gfunsxhbw-Aajcmj (Trelegy Ellipta) 100-62.5-25 MCG/ACT aerosol powder Inhale 1 puff in the morning. 0 08/19/2023 Discontinued (Therapy completed) hydroCHLOROthiazide 25 mg / losartan potassium 100 mg oral tablet (13 sources) Thiazide Diuretic, Angiotensin 2 Receptor Nate [...] 0 Active loratadine 10 mg oral tablet (13 sources) Start: 04-04-2024 End: 04-04-2025 take 1 tablet by mouth once daily loratadine (Claritin) 10 MG tablet Indications: Seasonal allergic rhinitis due to pollen Take 1 tablet (10 mg) by mouth Daily 30 tablet 11 04/04/2024 04/04/2025 Active take 1 tablet by mouth in the mo rning loratadine (Claritin) 10 MG tablet Take 1 tablet by mouth in the morning. Active nystatin 100 unt/mg topical powder (13 sources) Polyene Antifungal nystatin (Myc ostatin) 767357 UNIT/GM powder Apply 1 application topically in the morning and 1 application before bedtime. Active omeprazole 40 mg delayed release oral capsule (13 sources) Proton Pump Inhibitor Start: End: take [...] Active ondansetron 4 mg disintegrating oral tablet (10 sources) Serotonin-3 Receptor Antagonist Start: 02-17-2024 take 1 tablet by mouth every eight hours for nausea ondansetron ODT (Zofran-ODT) 4 MG disintegrating tablet Indications: Viral gastroenteritis Take 1 tablet (4 mg) by mouth every 8 (eight) hours if needed for nausea or vomiting 20 tablet 1 02/17/2024 Active polyethylene glycol 3350 25999 mg powder for oral solution (10 sources) Osmotic Laxative Start: 09-15-2023 polyethylene glycol, PEG, 3350 (MiraLax) 17 GM/SCOOP powder Indications: Chronic idiopathic constipation Take 17 g by mouth Daily 527 g 2 09/15/2023 Active potassium chloride 20 meq extended release oral tablet (15 sources) Start: 10-06-2023 End: 10-05-2024 take 1 [...] completed) rosuvastatin calcium 10 mg oral tablet (13 sources) HMG-CoA Reductase Inhibitor Start: 07-09-2023 End: [...] Date Documented Da te Episodic/Chronic Anxiety disorders (16 sources) Generalized anxiety disorder; Translations: [Generalized anxiety disorder] Onset: 3 06-10-2023 Chronic Asthma (20 sources) Asthma-chronic obstructive pulmonary disease overlap syndrome; Translations: [Asthma-COPD overlap syndrome] Onset: 3 06-10-2023 Chronic Cardiac dysrhythmias (2 sources) Supraventricular tachycardia; Translations: [Supraventricular tachycardia] Onset: 2 Chronic Chronic obstructive pulmonary disease and bronchiectasis (2 sources) Chronic obstructive pulmonary disease, unspecified; Translations: [Chronic obstructive pulmonary disease, unspecified] Onset: 3 Chronic Disorders of lipid metabolism (16 sources) Hyperlipidemia, unspecified; Translations: [Dyslipidemia] Onset: 3 06-10-2023 Chronic Esophageal disorders (15 sources) Gastroesophageal reflux disease without esophagitis; Translations: [Gastro-esophageal reflux disease without esophagitis] Onset: 3 06-10-2023 Chronic Essential hypertension (20 sources) Essential (primary) hypertension; Translations: [Benign essential hypertension] Onset: 2 Chronic Heart valve disorders (17 sources) Mitral and aortic stenosis; Translations: [Rheumatic disorders of both mitral and aortic valves] Onset: 2 06-10-2023 Chronic Mood disorders (16 sources) Recurrent major depressive episodes, moderate ; Translations: [Major depressive disorder, recurrent, moderate] Onset: 3 06-10-2023 Chronic Osteoarthritis (13 sources) Arthritis of left foot; Translations: [Primary osteoarthritis, left ankle and foot] Onset: 3 06-10-2023 Chronic Other aftercare (1 source) Other prison (current) drug therapy; Translations: [OTH [facility] CURRENT DRUG THERAPY] Onset: 3 Episodic Other connective tissue disease (7 sources) Pain in right lower limb; Translations: [Pain in right leg] Onset: 4 04-03-2024 Episodic Other gastrointestinal disorders (10 sources) Chronic idiopathic constipation; Translations: [Chronic idiopathic constipation] Onset: 3 09-15-2023 Chronic Other gastrointestinal disorders (3 sources) Therapeutic opioid induced constipation; Translations: [Drug induced constipation] Onset: 3 06-10-2023 Episodic Other skin disorders (7 sources) Seborrheic keratosis; Translations: [Other seborrheic keratosis] Onset: 4 04-03-2024 Episodic Other upper respiratory disease (15 sources) Allergic rhinitis due to pollen; Translations: [Allergic rhinitis due to pollen] Onset: 3 06-10-2023 Chronic Residual codes; unclassified (1 source) Family history of malignant neoplasm of breast; Translations: [FAMILY HX MALIG NEOPLASM OF BREAST] Onset: 3 Episodic Residual codes; unclassified (1 source) Family history of malignant neoplasm of digestive organs; Translations: [FAM HX MALIG NEOPLASM DIGESTIV ORGN] Onset: 3 Episodic Past or Other Problems Problem Classification Problem Date Documented Da te Episodic/Chronic Cardiac dysrhythmias (15 sources) Sinus tachycardia; Translations: [Tachycardia, unspecified] Onset: 2 06-10-2023 Episodic Fluid and electrolyte disorders (13 sources) Hypokalemia; Translations: [Hypokalemia] Onset: 3 06-10-2023 Episodic Intestinal infection (10 sources) Viral gastroenteritis; Translations: [Viral intestinal infection, unspecified] Onset: 4 02-17-2024 Episodic Other aftercare (4 sources) Encounter for surgical aftercare following surgery on the circulatory system; Translations: [ENC SURG [facility] FLW SURG CIRC SYS] Onset: 2 Episodic Other aftercare (8 sources) Patient encounter status; Translations: [Other prison (current) drug therapy] Onset: 4 08-19-2023 Episodic Other aftercare (6 sources) Long-term current use of drug therapy; Translations: [Other rat exterminator (current) drug therapy] Onset: 4 08-19-2023 Episodic Other connective tissue disease (13 sources) Pain in left foot; Translations: [Pain in left foot] Onset: 3 Resolved: 4 06-10-2023 Episodic Other injuries and conditions due to external causes (13 sources) At low risk for fall; Translations: [History of falling] Onset: 3 06-10-2023 Episodic Other lower respiratory disease (2 sources) Other forms of dyspnea; Translations: [Other forms of dyspnea] Onset: 2 Episodic Other non-traumatic joint disorders (13 sources) Subtalar joint unstable; Translations: [Other instability, left foot] Onset: 3 06-10-2023 Episodic Other nutritional; endocrine; and metabolic disorders (13 sources) Overweight; Translations: [Overweight] Onset: 3 06-10-2023 Episodic Other screening for suspected conditions (not mental disorders or infectious disease) (17 sources) Encounter for screening mammogram for malignant neoplasm of breast; Translations: [Patient encounter status] Onset: 3 Episodic Other skin disorders (13 sources) Vesicular eczema; Translations: [Dyshidrosis [pompholyx]] Onset: 3 06-10-2023 Episodic Phlebitis; thrombophlebitis and thromboembolism (18 sources) Phlebitis and thrombophlebitis of superficial vessels of right lower extremity; Translations: [Thrombophlebitis of superficial veins of lower extremity] Onset: 2 Episodic Pneumonia (except that caused by tuberculosis or sexually transmitted disease) (10 sources) Bilateral pneumonia; Translations: [Pneumonia, unspecified organism] Onset: 4 03-09-2024 Episodic Residual codes; unclassified (13 sources) Family history of cancer of colon; Translations: [Family history of malignant neoplasm of digestive organs] Onset: 3 06-10-2023 Episodic Spondylosis; intervertebral disc disorders; other back problems (15 sources) Lumbosacral stenosis; Translations: [Spinal stenosis, lumbosacral region] Onset: 3 06-10-2023 Episodic Varicose veins of lower extremity (18 sources) Varicose veins of bilateral lower extremities with pain; Translations: [Varicose veins of lower extremity] Onset: 2 Episodic Results Test Name Value Interpretation Reference Range Facility ALL HEMOGLOBINon 05-30-2024 Hemoglobin (Bld) [Mass/Vol] 13.1 g/dL 12.0 - 16.0 g/dL [facility] Office Visiton 08-23-2023 Follow-up visit [id number] Pankaj Napier 1945 F Date Provider Department Center 08/23/2023 [facility] CARD [facility] Family History Problem Relation Age of Onset Coronary artery disease Mother Coronary artery disease Brother Family Status - Relation Status Age at Mother Brother Level of Service:88744 MD OFFICE/OUTPATIENT ESTABLISHED LOW MDM 20 MIN Normal [facility] MG MAMM SCREEN 3D SHARLENE CADon 09-24-2022 MG MAMM SCREEN 3D SHARLENE CAD Patient: NAPIERCARTER DAVISGALILEA Yusuf Exam Date: 09/24/2022 : 1945 Gender:F Ordering : DR SHAHEED DE LA TORRE . Admission #: [id number] Family : Order #: [id number] CLICK HERE TO VIEW EXAM RADIOLOGY REPORT [...] stomach cancer at age 80. LOCATION: [facility] BREAST COMPOSITION: Scattered areas fibroglandular [...] Vaughan M.D. on 09/25/2022 at 07:08 Normal [facility] Office Visiton 08-31-2022 Follow-up visit [id number] Pankaj Napier 1945 F Date Provider Department Center 08/31/2022 [id number] Family History Problem Relation Age of Onset Coronary artery disease Mother Coronary artery disease Brother Family Status - Relation Status Age at Mother Brother Level of Service:34500 MD OFFICE/OUTPATIENT ESTABLISHED MOD MDM 30-39 MIN Reason for Visit and Comments: Follow-up [157846] - 1 yr follow up Normal [facility] CBC AUTO DIFFon 07-17-2022 BASO # 0.1 103/ul Normal 0.0-0.1 [facility] Comment on above: Performed By: #### C BC ####[facility] [address] [place] [id number]. Fidencio Walker Basophils/100 WBC (Bld) 0.8 % Normal 0.2-2.0 [facility] Comment on above: Performed By: #### C BC ####[facility] [address] [place] [id number]. Fidencio Walker EO # 0.4 103/ul Normal 0.0-0.7 [facility] Comment on above: Performed By: #### C BC ####[facility] [address] [place] [phone]. Fidencio Walker Eosinophils/100 WBC (Bld) 4.7 % Normal 0.9-7.0 [facility] Comment on above: Performed By: #### C BC ####[facility] [address] [place] [phone]. Fidencio Walker Erythrocyte distribution width (RBC) [Ratio] 13.0 % Normal 11.0-15.0 [facility] Comment on above: Performed By: #### C BC ####[facility] [address] [place] [phone]. Fidencio Walker Hematocrit (Bld) [Volume fraction] 43.0 % Normal 36.0-48.0 [facility] Comment on above: Performed By: #### C BC ####[facility] [address] [place] [phone]. Fidencio Walker Hemoglobin (Bld) [Mass/Vol] 13.1 g/dL Normal 12.0-16.0 [facility] Comment on above: Performed By: #### C BC ####[facility] [address] [place] [phone]. Fidencio Walker IG # 0.02 10e3/ul Normal 0.00-0.03 [facility] Comment on above: Performed By: #### C BC ####[facility] [address] [place], [place] [id number]. Fidencio Walker IG % 0.3 % Normal 0.0-0.5 [facility] Comment on above: Performed By: #### C BC ####[facility] [address] [place] [phone]. Fidencio Walker LYMPH # 2.2 103/ul Normal 1.2-3.8 [facility] Comment on above: Performed By: #### C BC ####[facility] [address] [place] [phone]. Fidencio Walker Lymphocytes/100 WBC (Bld) 28.7 % Normal 20.5-60.0 [facility] Comment on above: Performed By: #### C BC ####[facility] [address] [place] [phone]. Fidencio Aaron MANUAL DIFF REQ NO Normal [facility] Comment on above: Performed By: #### C BC ####[facility] [address] [place] [phone]. Fidencio Aaron MCH (RBC) [Entitic mass] 30.9 pg Normal 26.7-34.0 [facility] Comment on above: Performed By: #### C BC ####[facility] [address] [place] [phone]. Fidencio Wlaker MCHC (RBC) [Mass/Vol] 30.5 g/dL Normal 29.9-35.2 [facility] Comment on above: Performed By: #### C BC ####[facility] [address] [place] [phone]. Fidencio Walker MCV (RBC) [Entitic vol] 101.4 fL Critically high 81.0-99.0 [facility] Comment on above: Performed By: #### C BC ####[facility] [address] [place] [phone]. Fidencio Aaron MONO # 0.5 103/ul Normal 0.3-0.8 [facility] Comment on above: Performed By: #### C BC ####[facility] [address] [place] [phone]. Fidencio Aaron Monocytes/100 WBC (Bld) 7.1 % Normal 1.7-12.0 [facility] Comment on above: Performed By: #### C BC ####[facility] [address] [place] [phone]. Fidecnio Walker NEUT # 4.4 103/ul Normal 1.4-6.5 [facility] Comment on above: Performed By: #### C BC ####[facility] [address] [place] [phone]. Fidencio Walker Neutrophils/100 WBC (Bld) 58.4 % Normal 43.0-75.0 [facility] Comment on above: Performed By: #### C BC ####[facility] [address] [place] [phone]. Fidencio Walker Platelet mean volume (Bld) [Entitic vol] 10.8 fL Normal 9.5-13.5 [facility] Comment on above: Performed By: #### C BC ####[facility] [address] [place] [phone]. Fidencio Walker PLT 200 103/ul Normal 150-450 [facility] Comment on above: Performed By: #### C BC ####[facility] [address] [place] [phone]. Fidencio Walker RBC 4.24 106/ul Normal 4.20-5.40 [facility] Comment on above: Performed By: #### C BC ####[facility] [address] [place] [phone]. Fidencio Walker WBC 7.5 103/ul Normal 4.0-11.0 [facility] Comment on above: Performed By: #### C BC ####[facility] [address] [place] [phone]. Fidencio Walker LIPID PROFILEon 07-17-2022 CHOL-HDL RATIO NORM SEE BELOW Normal [facility] Comment on above: Result Comment: 3.3 - 4.4 LOW RISK 4.4 - 7.1 AVERAGE RISK 7.1 - 11.0 MODERATE RISK >11.0 HIGH RISK Performed By: #### L IPID, LIVER, BMP ####[facility] [address] [place] [phone]. Fidencio Walker Cholesterol [Mass/Vol] 134 mg/dL Normal <=200 [facility] Comment on above: Performed By: #### L IPID, LIVER, BMP ####[facility] [address] [place] [phone]. Fidencio Walker Cholesterol in HDL [Mass/Vol] 57 mg/dL Normal 40-60 [facility] Comment on above: Performed By: #### L IPID, LIVER, BMP ####[facility] [address] [place] [phone]. Fidencio Aaron Cholesterol in LDL [Mass/Vol] 59.6 mg/dL Normal [facility] Comment on above: Performed By: #### L IPID, LIVER, BMP ####[facility] [address] [place] [phone]. Galileanickolas Aaron Cholesterol.total/Ch olesterol in HDL [Mass ratio] 2.4 {ratio} Normal [facility] Comment on above: Performed By: #### L IPID, LIVER, BMP ####[facility] [address] [place] [phone]. Fidencio Walker HDL NORMAL > or = 60 mg/dl - LO W CARDIOVASCULAR RISK <40 mg/dl - HIGH CARDIOVASCULAR RISK Normal [facility] Comment on above: Performed By: #### L IPID, LIVER, BMP ####[facility] [address] [place] [phone]. Fidencio Walker LDL CALC NORMAL SEE BELOW Normal [facility] Comment on above: Result Comment: <100 mg/dl OPTIMAL 100 - 129 mg/dl NEAR OR ABOVE OPTIMAL 130 - 159 mg/dl BORDERLINE HIGH 160 - 189 mg/dl HIGH >190 mg/dl VERY HIGH Performed By: #### L IPID, LIVER, BMP ####[facility] [address] [place] [phone]. Fidencio Walker Triglyceride [Mass/Vol] 87 mg/dL Normal <=150 [facility] Comment on above: Performed By: #### L IPID, LIVER, BMP ####[facility] [address] [place] [phone]. Fidencio Aaron VLDL CALC 17.4 mg/dL Normal [facility] Comment on above: Performed By: #### L IPID, LIVER, BMP ####[facility] [address] [place] [phone]. Fidencio Aaron LIVER PROFILEon 07-17-2022 Albumin [Mass/Vol] 3.7 g/dL Normal 3.4-5.0 [facility] Comment on above: Performed By: #### L IPID, LIVER, BMP ####[facility] [address] [place] [address]Dr. Fidencio Walker Albumin/Globulin [Mass ratio] 1.0 {ratio} Normal [facility] Comment on above: Performed By: #### L IPID, LIVER, BMP ####[facility] [address] [place] [address]Dr. Fidencio Walker ALP [Catalytic activity/Vol] 58 U/L Normal 46-116 [facility] Comment on above: Performed By: #### L IPID, LIVER, BMP ####[facility] [address] [place], [place] [address]Dr. Fidencio Walker ALT [Catalytic activity/Vol] 13 U/L Critically low 14-59 [facility] Comment on above: Performed By: #### L IPID, LIVER, BMP ####[facility] [address] [place], [place] [address]Dr. Fidencio Walker AST [Catalytic activity/Vol] 18 U/L Normal 15-37 [facility] Comment on above: Performed By: #### L IPID, LIVER, BMP ####[facility] [address] [place] [address]Dr. Fidencio Walker BILI, CONJUGATED 0.1 mg/dL Normal 0.0-0.2 [facility] Comment on above: Performed By: #### L IPID, LIVER, BMP ####[facility] [address] [place] [address]Dr. Fidencio Walker Bilirubin [Mass/Vol] 0.3 mg/dL Normal 0.2-1.0 [facility] Comment on above: Performed By: #### L IPID, LIVER, BMP ####[facility] [address] [place] [address]Dr. Fidencio Walker Globulin (S) [Mass/Vol] 3.6 g/dL Normal [facility] Comment on above: Performed By: #### L IPID, LIVER, BMP ####[facility] [address]ls[address] [place] [address]Dr. Fidencio Walker Protein [Mass/Vol] 7.3 g/dL Normal 6.4-8.2 [facility] Comment on above: Performed By: #### L IPID, LIVER, BMP ####[facility] [address] [place], [place] [address]Dr. Fidencio Walker PROF CHEM 8 (BAS METB)on Anion gap [Moles/Vol] 11.3 mmol/L Normal [facility] [facility] Comment on above: Performed By: #### L IPID, LIVER, BMP ####[facility] [address] [place], [place] [address]Dr. Fidencio Walker Calcium [Mass/Vol] 9.2 mg/dL Normal 8.5-10.1 [facility] Comment on above: Performed By: #### L IPID, LIVER, BMP ####[facility] [address] [place], [place] [address]Dr. Fidencio Walker Chloride [Moles/Vol] 102 mmol/L Normal 98-107 [facility] Comment on above: Performed By: #### L IPID, LIVER, BMP ####[facility] [address] [place], [place] [address]Dr. Fidencio Walker CO2 [Moles/Vol] 29.5 mmol/L Normal 21.0-32.0 [facility] Comment on above: Performed By: #### L IPID, LIVER, BMP ####[facility] [address] [place], [place] [address]Dr. Fidecnio Walker Creatinine [Mass/Vol] 0.92 mg/dL Normal 0.55-1.02 [facility] Comment on above: Performed By: #### L IPID, LIVER, BMP ####[facility] [address] [place], [place] [address]Dr. Yilan Walker EGFR-AF WALLISIAN >60 Normal >=60 [facility] Comment on above: Result Comment: Prev iously reported as: (blank) On 07/17/2022 13:28 By AJR Performed By: #### L IPID, LIVER, BMP ####[facility] [address] [place] [address]Dr. Fidencio Walker EGFR-NON AF WALLISIAN 59 mL/min/1.73m2 Critically low >=60 [facility] Comment on above: Result Comment: Prev iously reported as: (blank) On 07/17/2022 13:28 By AJR Performed By: #### L IPID, LIVER, BMP ####[facility] [address] [place] [address]Dr. Fidencio Walker Glucose [Mass/Vol] 98 mg/dL Normal 74-106 [facility] Comment on above: Performed By: #### L IPID, LIVER, BMP ####[facility] [address] [place] [address]Dr. Fidencio Walker Potassium [Moles/Vol] 3.8 mmol/L Normal 3.5-5.1 [facility] Comment on above: Performed By: #### L IPID, LIVER, BMP ####[facility] [address] [place] [address]Dr. Fidencio Walker Sodium [Moles/Vol] 139 mmol/L Normal 136-145 [facility] Comment on above: Performed By: #### L IPID, LIVER, BMP ####[facility] [address] [place] [address]Dr. Fidencio Walker Urea nitrogen [Mass/Vol] 19.0 mg/dL Critically high 7.0-18.0 [facility] Comment on above: Performed By: #### L IPID, LIVER, BMP ####[facility] [address] [place] [address]Dr. Galileanickolas Walker Urea nitrogen/Creatinine [Mass ratio] 20.7 mg/mg Normal [facility] Comment on above: Performed By: #### L IPID, LIVER, BMP ####[facility] [address] [place], [place] [address]HbNeal Walker VC INJ SCL BERTA KETTLE COORDINATOR VEINSon 1 VC INJ SCL BERTA KETTLE COORDINATOR VEINS Patient: KOLTON NAPIER. Exam Date: 04/16/2022 : 1945 Gender:F Ordering : DR MARIALUISA AVITIA M.D. Admission #: [id number] Family : Order #: [id number] CLICK HERE TO VIEW EXAM RADIOLOGY REPORT PROCEDURE: VEIN CENTER INJECTION SCLEROSING SOLUTION MULTIPLE VEINS SAME COMPARISON: VC INJ SCL BERTA KETTLE COORDINATOR VEINS, 04/02/2022. VC INJ SCL BERTA KETTLE COORDINATOR VEINS, 03/24/2022. INDICATIONS: Pain co-occurrent and due [...] Marialuisa Avitia MD on 04/16/2022 at 14:34 [facility] VC INJ SCL BERTA KETTLE COORDINATOR VEINSon 0 04-02-2022 VC INJ SCL BERTA KETTLE COORDINATOR VEINS Patient: KOLTON NAPIER. Exam Date: 04/02/2022 : 1945 Gender:F Ordering : DR MARIALUISA AVITIA M.D. Admission #: [id number] Family : Order #: [id number] CLICK HERE TO VIEW EXAM RADIOLOGY REPORT PROCEDURE: VEIN CENTER INJECTION SCLEROSING SOLUTION MULTIPLE VEINS SAME COMPARISON: VC INJ SCL BERTA KETTLE COORDINATOR VEINS, 03/24/2022. INDICATIONS: Pain co-occurrent and due [...] Vaughan M.D. on 04/02/2022 at 15:47 Normal [facility] VC INJ SCL BERTA KETTLE COORDINATOR VEINSon 0 03-24-2022 VC INJ SCL BERTA KETTLE COORDINATOR VEINS Patient: KOLTON NAPIERNeal Exam Date: 03/24/2022 : 1945 Gender:F Ordering : DR MARIALUISA AVITIA M.D. Admission #: [id number] Family : Order #: [id number] CLICK HERE TO VIEW EXAM RADIOLOGY REPORT PROCEDURE: VEIN CENTER INJECTION SCLEROSING SOLUTION MULTIPLE VEINS SAME COMPARISON: VC INJ SCL BERTA KETTLE COORDINATOR VEINS, 03/19/2022. VC INJ SCL BERTA KETTLE COORDINATOR VEINS, 03/10/2022. INDICATIONS: Pain co-occurrent and due [...] Avitia MD on 03/24/2022 at 13:41 Normal [facility] VC INJ SCL BERTA KETTLE COORDINATOR VEINSon 0 03-19-2022 VC INJ SCL BERTA KETTLE COORDINATOR VEINS Patient: NAPIERKOLTON Exam Date: 03/19/2022 : 1945 Gender:F Ordering : DR MARIALUISA AVITIA M.D. Admission #: [id number] Family : Order #: [id number] CLICK HERE TO VIEW EXAM RADIOLOGY REPORT PROCEDURE: VEIN CENTER INJECTION SCLEROSING SOLUTION MULTIPLE VEINS SAME COMPARISON: VC INJ SCL BERTA KETTLE COORDINATOR VEINS, 03/10/2022. VC INJ SCL BERTA KETTLE COORDINATOR VEINS, 03/03/2022. INDICATIONS: Pain co-occurrent and due [...] Avitia MD on 03/19/2022 at 15:13 Normal [facility] VC INJ SCL BERTA KETTLE COORDINATOR VEINSon 0 03-10-2022 VC INJ SCL BERTA KETTLE COORDINATOR VEINS Patient: KOLTON NAPIER Exam Date: 03/10/2022 : 1945 Gender:F Ordering : DR MARIALUISA AVITIA M.D. Admission #: [id number] Family : Order #: [id number] CLICK HERE TO VIEW EXAM RADIOLOGY REPORT PROCEDURE: VEIN CENTER INJECTION SCLEROSING SOLUTION MULTIPLE VEINS SAME COMPARISON: VC INJ SCL BERTA KETTLE COORDINATOR VEINS, 03/03/2022. INDICATIONS: Pain co-occurrent and due [...] Avitia MD on 03/10/2022 at 14:38 Normal [facility] VC INJ SCL BERTA KETTLE COORDINATOR VEINSon 0 03-03-2022 VC INJ SCL BERTA KETTLE COORDINATOR VEINS Patient: KOLTON NAPIER. Exam Date: 03/03/2022 : 1945 Gender:F Ordering : DR MARIALUISA AVITIA M.D. Admission #: [id number] Family : Order #: [id number] CLICK HERE TO VIEW EXAM RADIOLOGY REPORT [...] Avitia MD on 03/03/2022 at 15:25 Normal [facility] VC CONSULT FOLLOWUPon 2021 VC CONSULT FOLLOWUP Patient: CARTER NAPIER GALILEA Thomas. Exam Date: 02/25/2022 : 1945 Gender:F Ordering : DR MARIALUISA AVITIA M.D. Admission #: [id number] Family : Order #: [id number] CLICK HERE TO VIEW EXAM RADIOLOGY REPORT [...] Vaughan M.D. on 02/25/2022 at 15:41 Normal [facility] VC EXT VENOUS RT LIMITEDon 0 02-25-2022 VC EXT VENOUS RT LIMITED Patient: KOLTON NAPIER Exam Date: 02/25/2022 : 1945 Gender:F Ordering : DR MARIALUISA AVITIA M.D. Admission #: [id number] Family : Order #: [id number] CLICK HERE TO VIEW EXAM RADIOLOGY REPORT [...] Vaughan M.D. on 02/25/2022 at 15:39 Normal [facility] VC INJ FOAM SCLERO W US MLTI on 02-19-2022 VC INJ FOAM SCLERO W US MLTI Patient: KOLTON NAPIER Exam Date: 02/19/2022 : 1945 Gender:F Ordering : DR MARIALUISA AVITIA M.D. Admission #: [id number] Family : Order #: [id number] CLICK HERE TO VIEW EXAM RADIOLOGY REPORT [...] Vaughan M.D. on 02/20/2022 at 09:07 Normal [facility] VC CONSULT FOLLOWUPon 2021 VC CONSULT FOLLOWUP Patient: CARTER NAPIER. Exam Date: 02/10/2022 : 1945 Gender:F Ordering : DR MARIALUISA AVITIA M.D. Admission #: [id number] Family : Order #: [id number] CLICK HERE TO VIEW EXAM RADIOLOGY REPORT [...] Marialuisa Avitia MD on 02/10/2022 at 14:56 [facility] VC EXT VENOUS RT LIMITEDon 0 02-10-2022 VC EXT VENOUS RT LIMITED Patient: KOLTON NAPIER Exam Date: 02/10/2022 : 1945 Gender:F Ordering : DR MARIALUISA AVITIA M.D. Admission #: [id number] Family : Order #: [id number] CLICK HERE TO VIEW EXAM RADIOLOGY REPORT [...] Avitia MD on 02/10/2022 at 14:38 Normal [facility] VC ENDOVENOUS ABL 1ST V RTon 02-03-2022 VC ENDOVENOUS ABL 1ST V RT Patient: KOLTON NAPIER Exam Date: 02/03/2022 : 1945 Gender:F Ordering : DR MARIALUISA AVITIA M.D. Admission #: [id number] Family : Order #: [id number] CLICK HERE TO VIEW EXAM RADIOLOGY REPORT [...] Noah Vaughan M.D. on 02/03/2022 at 14:01 [facility] VC COMP CONSULTATIONon 01-22 VC COMP CONSULTATION Patient: DO HERI NAPIER Exam Date: 01/22/2022 : 1945 Gender:F Ordering : DR MARIALUISA AVITIA M.D. Admission #: [id number] Family : Order #: [id number] CLICK HERE TO VIEW EXAM RADIOLOGY REPORT [...] Avitia MD on 01/22/2022 at 14:56 Normal [facility] VC VENOUS REFLUX SHARLENE LMTon 0 01-22-2022 VC VENOUS REFLUX SHARLENE LMT Patient: KOLTON NAPIER Exam Date: 01/22/2022 : 1945 Gender:F Ordering : DR MARIALUISA AVITIA M.D. Admission #: [id number] Family : Order #: [id number] CLICK HERE TO VIEW EXAM RADIOLOGY REPORT [...] chronic thrombus visualized Compressibility: Normal Flow: Normal Community Assistant: Dist/med calf 2.7mm with 0s. Mid/med calf [...] Flow: 1.2s of reflux in popliteal vein Community Assistant: Dist/med calf 4.7mm with 0s reflux. Tech [...] MD on 01/22/2022 at 14:18 Normal [facility] OBSOLETEon 05-15-2019 OBSOLETE Refill (CARDMN) KOLTON NAPIER ([id number]) 1945 F Date Time Provider Department 05/15/19 JAMES JOHNSON During your visit today, we recorded the following information about you: Maribel Jo Esthetician Facialist II 05/16/2019 4:42 PM Signed Call from pharmacy requesting refill. Pending Prescriptions Disp Refills DILTIAZEM 30 MG TABLET 270 tablet 1 Sig: TAKE ONE TABLET BY MOUTH THREE TIMES A DAY FLORENCIA: Yes Patient last seen 05/30/18 Maribel Jo Esthetician Facialist II Allergies As of Date: 05/15/2019 Noted [...] Status:Closed by JAMES JOHNSON MD on 05/20/19 [facility] CNOVon 05-30-2018 CNOV Office Visit (CARDMN ) KOLTON NAPIER ([id number]) 1945 F Date Time Provider Department 05/30/18 2:00 PM JAMES JOHNSON During your visit today, we recorded the following information about you: Pulse Blood pressure Weight Height 114/minute 140/78 73.9 kg 1.626 m James Johnson MD, 05/30/2018 5:53 PM Signed [facility] Department of Cardiovascular Medicine SECTION OF CARDIAC PACING and ELECTROPHYSIOLOGY OUTPATIENT VISIT DATE May 30, 2018 OUTPATIENT VISIT TYPE NEW PRIMARY CARE PHYSICIAN: Shaheed De La Torre MD ([facility]) [address] [place] [address] IMPRESSION/PLAN: The patient is very pleasant female [...] ECG today: Sinus tachycardia at 114 bpm. MD 154 ms, QRS 86 ms, QTC 460 ms. FOLLOW UP: Return in about 4 months (around 09/27/2018). This note was created using computerized process worker software and may therefore include some process worker errors including errors in gender and inappropriate words or phrases. I reviewed old records, obtained relevant HPI and PMH from the pt, examined the patient and created the above report. James Johnson MD May 30, 2018 Note to: Shaheed De La Torre MD ([facility]) [address] [place] [address] James Johnson MD, MD 05/30/2018 3:19 PM Signed If symptoms not improving in 7-10 days on low dose diltiazem, call. Referring Provider: REFERRAL, NO(HIST) [[id number]] Allergies As of Date: 05/30/2018 Noted Allergy Reaction PENICILLINS 05/30/2018 11 - Vomiting Date Reviewed: 05/30/2018 Reviewed by: Kathie Avery (Elijah) ELIJAH Chauhan - Fully Assessed Primary Visit [...] Status:Closed by JAMES JOHNSON MD on 05/30/18 [facility] ECG COMPLETE W INTERPRETATIO Non 05-30-2018 ECG COMPLETE W INTERPRETATION NAME : KOLTON NAPIER PID : [id number] : 1945 Gender : Female Race : ORD : [id number] Procedure Date : May 30 2018 13:36:13 Edit Date : May 31 2018 13:51:33 Diagnosis:SINUS TACHYCARDIA WITH PREMATURE ATRIAL COMPLEXES OTHERWISE NORMAL ECG Confirmed by MD YAN TAMANNA ([id number]) on 05/31/2018 1:51:26 PM Ventricular Rate : 114 BPM Atrial Rate : 114 BPM P-R Interval : 154 ms QRS Duration : 86 ms Q-T Interval : 334 ms QTC Calculation(Bezet) : 460 ms P [place] : 37 degrees R [place] : 30 degrees T [place] : 46 degrees Test Reason : Location : 314 : J14 Overread By : MD YAN TAMANNA Edited By : MD YAN TAMANNA Referred By : JAMES OJHNSON Acquired by : BHUMIKA SANCHEZ [facility] PROGRESSon 05-30-2018 PROGRESS HNO ID: [id number] Author: James Johnson MD Service: (none) Author Type: Physician Type: Progress Notes Filed: 05/30/2018 5:53 PM Note Text: [facility] Department of Cardiovascular Medicine SECTION OF CARDIAC PACING and ELECTROPHYSIOLOGY OUTPATIENT VISIT DATE May 30, 2018 OUTPATIENT VISIT TYPE NEW PRIMARY CARE PHYSICIAN: Shaheed De La Torre MD ([facility]) [address] [facility] [place] [address] IMPRESSION/PLAN: The patient is very pleasant female [...] ECG today: Sinus tachycardia at 114 bpm. MD 154 ms, QRS 86 ms, QTC 460 ms. FOLLOW UP: Return in about 4 months (around 09/27/2018). This note was created using computerized process worker software and may therefore include some process worker errors including errors in gender and inappropriate words or phrases. I reviewed old records, obtained relevant HPI and PMH from the pt, examined the patient and created the above report. James Johnson MD May 30, 2018 Note to: Shaheed De La Torre MD ([facility]) [address] [place] [address] Normal [facility] Vital Signs Date Time Vital Sign Value Performing Clinician Juanjose hinojosa 04-03-2024 09:18-0400 Body height 162.6 cm Shaheed De La Torre MD Work Phone: [facility] 04-03-2024 09:18-0400 Body mass index (BMI) [Ratio] 25.92 kg/m2 Shaheed De La Torre MD Work Phone: [facility] 04-03-2024 09:18-0400 Body temperature 95.7 [degF] Shaheed De La Torre MD Work Phone: [facility] 04-03-2024 09:18-0400 Body weight 68.49 kg Shaheed De La Torre MD Work Phone: [facility] 04-03-2024 09:18-0400 Diastolic blood pressure 80 mm[Hg] Shaheed De La Torre MD Work Phone: [facility] 04-03-2024 09:18-0400 Heart rate 86 /min Shaheed De La Torre MD Work Phone: [facility] 04-03-2024 09:18-0400 Respiratory rate 20 /min Shaheed De La Torre MD Work Phone: [facility] 04-03-2024 09:18-0400 SaO2% (BldA) [Mass fraction] 97 % Shaheed De La Torre MD Work Phone: [facility] 04-03-2024 09:18-0400 Systolic blood pressure 140 mm[Hg] Shaheed De La Torre MD Work Phone: [facility] 08-19-2023 14:36-0500 Body height 162.6 cm Shaheed De La Torre MD Work Phone: [facility] 08-19-2023 14:36-0500 Body mass index (BMI) [Ratio] 26.09 kg/m2 Shaheed De La Torre MD Work Phone: [facility] 08-19-2023 14:36-0500 Body temperature 98.1 [degF] Shaheed De La Torre MD Work Phone: [facility] 08-19-2023 14:36-0500 Body weight 68.95 kg Shaheed De La Torre MD Work Phone: [facility] 08-19-2023 14:36-0500 Diastolic blood pressure 70 mm[Hg] Shaheed De La Torre MD Work Phone: [facility] 08-19-2023 14:36-0500 Heart rate 71 /min Shaheed De La Torre MD Work Phone: [facility] 08-19-2023 14:36-0500 SaO2% (BldA) [Mass fraction] 98 % Shaheed De La Torre MD Work Phone: [facility] 08-19-2023 14:36-0500 Systolic blood pressure 108 mm[Hg] Shaheed De La Torre MD Work Phone: [facility] Encounters Encounter Date Encounter Type Care Provider Facility Start: 06-12-2024 End: 06-12-2024 Refill Shaheed De La Torre MD Work Phone: [facility] Comment on above: MDD (major depressiv e disorder), recurrent episode, moderate ([facility] Start: 05-30-2024 End: 05-30-2024 Clinisync Result Encounter Generic External Data Provider [facility] External Department Unsolicited Start: 05-30-2024 End: 05-30-2024 Clinisync Result Encounter Generic External Data Provider [facility] External [facility] Unsolicited Start: 04-19-2024 End: 04-19-2024 Refill Shaheed De La Torre MD Work Phone: [facility] Comment on above: LAUREL (generalized anx iety disorder) ([facility]) Start: 04-03-2024 End: 04-03-2024 Bamboo flowsheet Shaheed De La Torre MD Work Phone: [facility] Start: 04-03-2024 End: 04-03-2024 Bamboo flowsheet Shaheed De La Torre MD Work Phone: [facility] Start: 04-03-2024 End: 04-03-2024 Office outpatient visit 15 minutes Shaheed De La Torre MD Work Phone: [facility] Comment on above: Seborrheic keratoses (Primary Dx); Leg pain, right Start: 04-03-2024 End: 04-03-2024 ambulatory SHAHEED DE LA TORRE Not Available Start: 03-09-2024 End: 03-09-2024 Bamboo flowsheet Shaheed De La Torre MD Work Phone: [facility] Start: 03-09-2024 End: 03-09-2024 Bamboo flowsheet Shaheed De La Torre MD Work Phone: [facility] Start: 03-09-2024 End: 03-09-2024 Office outpatient visit 25 minutes Shaheed De La Torre MD Work Phone: [facility] Comment on above: Pneumonia of both lo wer lobes due to infectious organism (Primary Dx); Mild intermittent asthma without complication (CMS/HCC); Benign essential hypertension (CMS/HCC) Start: 03-09-2024 End: 03-09-2024 ambulatory SHAHEED DE LA TORRE Not Available Start: 02-28-2024 End: 03-01-2024 Clinisync Result Encounter Generic External Data Provider [facility] External Department Unsolicited Start: 02-28-2024 End: 03-01-2024 Clinisync Result Encounter Generic External Data Provider [facility] External Department Unsolicited Start: 02-17-2024 End: 02-17-2024 ambulatory SHAHEED DE LA TORRE Not Available Start: 09-15-2023 End: 09-15-2023 ambulatory SHAHEED DE LA TORRE Not Available Start: 08-23-2023 End: 08-23-2023 ambulatory [facility] Start: 08-19-2023 End: 08-19-2023 Office outpatient visit 25 minutes Shaheed De La Torre MD Work Phone: [facility] Comment on above: Benign essential hyp [...] VAUGHAN Facility:H1 Start: 08-31-2022 End: 08-31-2022 ambulatory [facility] Start: 07-17-2022 End: 07-18-2022 ambulatory [...] 05-30-2024 ALL HEMOGLOBIN Generic External Data Provider Start: 02-28-2024 BLOOD CULTURE 2 Generic External Data Provider Start: 02-28-2024 BLOOD CULTURE 1 Generic External Data Provider Plan of Treatment Date Care Activity Detail Author Start: 08-22-2024 End: 08-22-2024 Patient encounter procedure 08/22/2024 1:15 PM EST Office Visit [facility] [address] [place] [address] Shaheed De La Torre MD [address] [place] [phone] [facility] Start: 04-03-2024 End: 04-03-2024 Patient encounter procedure 04/03/2024 9:15 AM EDT Office Visit [facility] [address] [place] [address] Shaheed De La Torre MD [address] [place] [address] Arrived [facility] Comment on above: Arrived Start: 03-09-2024 End: 03-09-2024 Patient encounter procedure [facility] Comment on above: Arrived Start: 03-05-2024 Influenza vaccination Influenza Vacc ine (#1) [facility] Start: 08-19-2023 End: 08-19-2023 Patient encounter procedure 08/19/2023 2:30 PM EST Office Visit [facility] [address] [place] [address] Shaheed De La Torre MD [address] [place] [phone] Arrived [facility] Comment on above: Arrived Start: 08-19-2023 End: 08-19-2024 Basic metabolic 1998 panel - Serum or Plasma Basic metabolic panel Lab Routine Benign essential hypertension (CMS/HCC) Expected: 08/19/2023 (Approximate), Expires: 08/19/2024 [facility] Work Phone: Comment on above: Expected: 08/19/2023 (Approximate), Expires: 08/19/2024 Start: 08-19-2023 End: 08-19-2024 CBC W Auto Differential panel - Blood CBC and differential Lab Routine Encounter for long-term (current) use of medications Expected: 08/19/2023 (Approximate), Expires: 08/19/2024 [facility] Comment on above: Expected: 08/19/2023 (Approximate), Expires: 08/19/2024 Start: 08-19-2023 End: 08-19-2024 Hepatic function 2000 panel - Serum or Plasma Hepatic function panel Lab Routine Encounter for long-term (current) use of medications Expected: 08/19/2023 (Approximate), Expires: 08/19/2024 [facility] Comment on above: Expected: 08/19/2023 (Approximate), Expires: 08/19/2024 Start: 08-19-2023 End: 08-19-2024 Lipid 1996 panel - Serum or Plasma Lipid panel Lab Routine Dyslipidemia (CMS/HCC) Expected: 08/19/2023 (Approximate), Expires: 08/19/2024 [facility] Comment on above: Expected: 08/19/2023 (Approximate), Expires: 08/19/2024 Start: 1945 Medicare Annual Wellness (AWV) Medicare Annual Wellness (AWV) [facility] BLOOD CULTURE 1 BLOOD CULTURE 1 Lab Routine 02/28/2024 9:37 AM EDT [facility] BLOOD CULTURE 2 BLOOD CULTURE 2 Lab Routine 02/28/2024 9:42 AM EDT [facility] Immunizations Immunization Date Immunization Notes Care Provider Mike nichole 04-02-2023 influenza virus vacc ine, unspecified formulation Generic Provider [facility] Payers Date Payer Category Payer Medicaid [employer] MEDICARE A DVANTAGE [id number] 2022 Medicare [employer]NA MEDICARE A DVANTAGE A[employer]NA MEDICARE REPLACEMENT [id number] 2022-Present [address] [place] [address] [id number] 1959 Medicare [id number] 1945 Unknown [id number] [id number]3 1945 Unknown [id number] 2.16.840.1.773285.3.579.2.593 1945 Unknown [id number] 2.16.840.1.472443.3.579.2.593 1945 Unknown [id number] 2.16.840.1.214491.3.579.2.593 1945 Unknown [id number] 2.16.840.1.318806.3.579.2.593 1945 Unknown [id number] 2.16.840.1.573540.3.579.2.593 1945 Unknown [id number] 2.16.840.1.485149.3.579.2.593 1945 Unknown [id number] 2.16.840.1.991396.3.579.2.593 1945 Unknown [id number] 2.16.840.1.737183.3.579.2.593 1945 Unknown [id number] 2.16.840.1.482346.3.579.2.593 1945 Unknown [id number] 2.16.840.1.840526.3.579.2.593 1945 Unknown [id number] 2.16.840.1.718059.3.579.2.593 1945 Unknown [id number] 2.16.840.1.963519.3.579.2.593 1945 Unknown [id number] 2.16.840.1.184784.3.579.2.1259 1945 Unknown [id number] 2.16.840.1.968330.3.579.2.9 1945 Unknown [id number] 2.16.840.1.217659.3.579.2.1259 1945 Unknown [id number] 2.16.840.1.002261.3.579.2.1259 1945 Unknown [id number] 2.16.840.1.475726.3.579.2.1259 1945 Unknown [id number] 2.16.840.1.271576.3.579.2.1259 Social History Date Type Detail Facility Start: [...] Healthcare Start: 06-10-2023 Alcohol Comment holiday [facility] Start: 1945 Sex Assigned At Not on file [facility] NEGATED: Highlighted rowStart: NINF History of tobacco use Passive smoker [facility] Clinical Notes 08-31-2022 to 04-03-2024 Shaheed De La Torre MD - 04/03/2024 10:00 AM Deep De La Torre MD - 04/03/2024 10:00 AM Deep De La Torre MD - 04/03/2024 9:15 AM Deep De La Torre MD - 03/09/2024 11:43 AM EDT Note Date & Type Note Facility 04-03-2024 History of Present illness Narrative Associated Problem(s): Leg pain, right Pain after lifting and likely muscular pain. Use OTC PRN. Start PT. Associated Problem(s): Seborrheic keratoses Lesions appear to be benign SK and monitor. Images from the original note were not included. Subjective Patient ID: Kolton Napier is a 78 y.o. female who presents for Follow-up (Spot on breast). C/o spots under both breasts for several weeks. Developed raised, brown and dark spots on skin of upper abdomen and breasts. Similar lesions in mid chest. No pain and doesn't both patient. Not itchy or irritated but worried something wrong. C/o pain in right leg for 2 weeks. Initially started after lifting a heavy box. Pain in right upper leg and outer leg. Pain with walking and standing and using cane. Muscles very sore and tender. Using OTC rub and helps. Pain slightly better since onset. Review of Systems Respiratory: Negative for cough, [...] Assessment/Plan Problem List Items Addressed This Visit Seborrheic keratoses - Primary Lesions appear to be benign SK and monitor. Leg pain, right Pain after lifting and likely muscular pain. Use OTC PRN. Start PT. documented in this encounter [facility] 03-09-2024 History of Present illness Narrative Associated Problem(s): Pneumonia of both lower lobes due to infectious organism Recent infection and improved with treatment. Monitor. Associated Problem(s): Mild intermittent asthma without complication (CMS/HCC) Symptoms controlled with inhalers. Follow up with pulmonology. Associated Problem(s): Benign essential hypertension (CMS/HCC) BP controlled at home and monitor PRN. Images from the original note were not included. Subjective Patient ID: Kolton Napier is a 78 y.o. female who presents for Follow-up ([facility] f/up). Hospital follow up from 02/27-03/01 for pneumonia and asthma exacerbation. Developed cough and SOB for 3 days prior. SOB worsened and hard to walk or stay active. Afebrile. Severe fatigue. To ER and given steroids and duoneb. Chest x-ray with pneumonia and admitted. Started antibiotics, steroids, and breathing treatments. No hypoxia. Discharged home with prednisone and levaquin. Doing well today. No further SOB or cough. Afebrile. Ambulating well. Seen pulmonology yesterday and no changes other than advised to use trelegy. Review of Systems Respiratory: Negative for cough, [...] Addressed This Visit Benign essential hypertension (CMS/HCC) BP controlled at home and monitor PRN. Mild intermittent asthma without complication (CMS/HCC) Symptoms controlled with inhalers. Follow up with pulmonology. Pneumonia of both lower lobes due to infectious organism - Primary Recent infection and improved with treatment. Monitor. documented in this encounter [facility] 08-23-[address] [facility] Cardiology Clinic Note Chief Complaint: Patient [...] her echocardiogram Eve Adams MD, MPH, FACC, [facility], [facility] Interventional Cardiology Pager Email: [email or web address] 08-19-2023 History of Present illness Narrative Associated Problem(s): MDD (major depressive [...] function panel documented in this encounter [facility] 08-31-2022 Note Patient is here toda y for 1yr follow up. Review of Systems All other systems reviewed and are negative. [facility] 08-31-2022 Note Cardiology Clinic No te Subjective [...] about 1 year (around 08/31/2023). Leonidas Peters APRN-MOTORCYCLE TESTER [facility] Cardiovascular Medicine [facility] Evaluation note Diagnosis Benign essential hypertension (CMS/HCC)- [...] (HCC) (CMS/HCC) [facility] Diagnosis MDD (major depressive disorder), recurrent episode, [...] tissues of limb LAUREL (generalized anxiety disorder) ([facility]/HCC) Generalized anxiety disorder [facility] Diagnosis MDD (major depressive disorder), recurrent episode, [...] right Pain in soft tissues of limb MDD (major depressive disorder), recurrent episode, moderate (CMS/HCC) [facility] Diagnosis Pneumonia of both lower lobes due to infectious organism- Primary Mild intermittent asthma without complication (CMS/HCC) Benign essential hypertension (CMS/HCC) Essential hypertension, benign [facility] Diagnosis Seborrheic keratoses- Primary Leg pain, right Pain in soft tissues of limb documented in this encounter [facility] Summary Purpose Family History No Family History Records FoundNo Family History Records FoundNo Family History Records FoundNo Family History Records Found Advance Directives No Advanced Directives Records FoundNo Advanced Directives Records FoundNo Advanced Directives Records FoundNo Advanced Directives Records Found Additional Source Comments INFORMATION SOURCE (unrecogn ized section and content) DATE CREATED AUTHOR 05/20/2019 [facility] DATE CREATED AUTHOR AUTHOR'S ORGANIZ ATION 09/27/[address] [facility] DATE CREATED AUTHOR AUTHOR'S ORGANIZ ATION 2023 [facility] DATE CREATED AUTHOR AUTHOR'S ORGANIZ ATION 04/03/2024 [facility] dical Specialists EPIC Care Teams (unrecognized sec tion and content) Furnace Repairer Helper Relationship Specialty Start Date End Date Shaheed De La Torre MD [address] [place] [address] PCP - General Family Medicine 08/19/23 Furnace Repairer Helper Relationship Specialty Start Date End Date Shaheed De La Torre MD [address] [place] [phone] PCP - [facility] 08/19/23 Furnace Repairer Helper Relationship Specialty Start Date End Date Shaheed De La Torre MD [address] [place] [phone] PCP - [facility] 08/19/23 Furnace Repairer Helper Relationship Specialty Start Date End Date Shaheed De La Torre MD [address] [place] [phone] PCP [facility] 08/19/23 Furnace Repairer Helper Relationship Specialty Start Date End Date Shaheed De La Torre MD [address] [place] [phone] PCP - [facility] 08/19/23 Furnace Repairer Helper Relationship Specialty Start Date End Date Shaheed De La Torre MD [address] [place] [phone] PCP [facility] 08/19/23 Furnace Repairer Helper Relationship Specialty Start Date End Date Shaheed De La Torre MD [address] [place] [phone] PCP - General Family Medicine 08/19/23 Reason for Visit (unrecogniz ed section and content) Reason Comments Follow-up Reason Onset Date Comments Med Refill 04/19/2024 Reason Onset Date Comments Med Refill 06/12/2024 Reason Comments Follow-up Tbh f/up Reason Comments Follow-up Spot on breast FOR RECORDS PERTAINING TO PATIENTS WHO ARE [...] BE BASED ON THE PRIMARY CLINICAL RECORDS. [facility] provides no warranty or guarantee of the accuracy or completeness of information in this document.
--- NOTE | 2024-06-27 07:48 | ED.GENADUL1 ---
HPI HPI - General Adult General Chief complaint: Nausea/Vomiting/Diarrhea Stated complaint: VOMMITING CONSTIPATED Time Seen by Provider: 06/27/24 07:47 Source: patient and family Mode of arrival: Wheelchair Limitations: no limitations History of Present Illness HPI narrative: Family will he is here with this patient who complains of some discomfort in her lower abdominal area and also in the rectal area. She admits to having a colonoscopy in and I did confirm and read that report that was done here. It was normal. She has not seen any blood in the stool. She says that she is has trouble moving her bowels. She has not had a fleets or soapsuds enema. She has not had fever shakes or chills. She states that she has had an appendectomy and total abdominal hysterectomy. She does not have any urinary symptoms but does have some discomfort in the suprapubic area. She has no history of bowel obstructions. Related Data Home Medications ?Medication ?Instructions ?Recorded ?Confirmed albuterol sulfate 90 mcg/actuation 2 inh inhalation Q6H PRN shortness 01/14/23 06/27/24 aerosol inhaler of breath or wheezing cyclobenzaprine 10 mg tablet 10 mg PO Q8H PRN muscle spasm 01/14/23 06/27/24 fluticasone fur. 100 mcg-umeclid 1 inh inhalation DAILY 01/14/23 02/28/24 62.5 mcg-vilant 25 mcg inhalat.powder (Trelegy Ellipta) losartan 100 1 tab PO DAILY 01/14/23 06/27/24 mg-hydrochlorothiazide 25 mg tablet (Hyzaar) omeprazole 40 mg capsule,delayed 40 mg PO DAILY 01/14/23 06/27/24 release rosuvastatin 10 mg tablet (Crestor) 10 mg PO DAILY 01/14/23 06/27/24 alprazolam 0.5 mg tablet 0.25 mg PO TID PRN anxiety 02/28/24 06/27/24 diltiazem HCl 60 mg tablet 60 mg PO TID 02/28/24 06/27/24 fluoxetine 40 mg capsule 40 mg PO DAILY 02/28/24 06/27/24 loratadine 10 mg tablet (Loradamed) 10 mg PO DAILY 02/28/24 02/28/24 potassium chloride 20 mEq 20 meq PO BID 02/28/24 02/28/24 tablet,extended release Previous Rx's ?Medication ?Instructions ?Recorded dextromethorphan-guaifenesin 30 1 tab PO DAILY #10 tabs 03/01/24 mg-600 mg tablet extended mcnatmc48 hr (Mucinex DM) ipratropium bromide 0.02 % 2.5 ml inhalation Q8H PRN 03/01/24 solution for inhalation shortness of breath or wheezing #75 mL levalbuterol HCl 1.25 mg/3 mL 1.25 mg (3 mL) inhalation Q8H PRN 03/01/24 solution for nebulization shortness of breath or wheezing #75 mL levofloxacin 500 mg tablet 500 mg PO DAILY 7 days #7 tabs 03/01/24 prednisone 20 mg tablet 20 mg PO BID 7 days #14 tabs 03/01/24 Allergies Allergy/AdvReac Type Severity Reaction Status Date / Time Penicillins Allergy Unknown Verified 06/27/24 07:35 Opioid HPI Opioid Management Most Recent Opioid Data: Last ORT Total Score 0 02/28/24 10:45 02/28/24 Last ORT Risk Category Low Risk 02/28/24 10:45 02/28/24 [facility] Medical History (Updated 06/27/24 @ 10:13 by Michael Gaston MD) Hyperlipemia ?E78.5 - Hyperlipidemia, unspecified (ICD-10) GERD (gastroesophageal reflux disease) ?K21.9 - Gastro-esophageal reflux disease without esophagitis (ICD-10) Anxiety ?F41.9 - Anxiety disorder, unspecified (ICD-10) Arthritis ?M19.90 - Unspecified osteoarthritis, unspecified site (ICD-10) Anemia ?D64.9 - Anemia, unspecified (ICD-10) Asthma ?J45.909 - Unspecified asthma, uncomplicated (ICD-10) Diarrhea ?R19.7 - Diarrhea, unspecified (ICD-10) Constipation ?K59.00 - Constipation, unspecified (ICD-10) Tachycardia ?R00.0 - Tachycardia, unspecified (ICD-10) Palpitations ?R00.2 - Palpitations (ICD-10) Hypertension ?I10 - Essential (primary) hypertension (ICD-10) Colon polyp ?K63.5 - Polyp of colon (ICD-10) Surgical History History of bladder surgery ?Z98.890 - Other specified postprocedural states (ICD-10) History of colonoscopy ?Z98.890 - Other specified postprocedural states (ICD-10) History of esophagogastroduodenoscopy (EGD) ?Z98.890 - Other specified postprocedural states (ICD-10) History of hysterectomy ?Z90.710 - Acquired absence of both cervix and uterus (ICD-10) History of cholecystectomy ?Z90.49 - Acquired absence of other specified parts of digestive tract (ICD-10) History of appendectomy ?Z90.49 - Acquired absence of other specified parts of digestive tract (ICD-10) Family History Other Family history of Alzheimer's disease Family history of breast cancer Family history of gastric cancer Family history of heart disease Family history of stroke Social History Within the past year, how often did you have a drink containing alcohol: monthly or less Smoking status: Never smoker Non-prescribed substance use: denies use Highest level of school completed/degree received: high school graduate Little interest or pleasure in doing things: not at all Feeling down, depressed, or hopeless: not at all Exam Narrative Exam Narrative: Awake alert modestly anxious here with her daughter. She is very pleasant vital sign able she is afebrile no respiratory distress. She denies any chest pain or heaviness or pressure. Examination abdomen shows it to be nondistended. There is good bowel sounds. There is no guarding rebound or rigidity. A rectal examination was done and showed soft brown stool in the rectal ampulla there is no blood there is no pain there is no obstruction there is no hemorrhoidal tissue noted. Stool was not black or tarry in appearance. There is no fissures or fistulas noted. Constitutional Vital Signs, click to edit/add: Last Vital Signs Temp 99.4 F 06/27/24 07:31 Pulse 92 H 06/27/24 07:31 Resp 181 H 06/27/24 07:31 BP 153/98 H 06/27/24 07:31 Pulse Ox 96 06/27/24 07:31 O2 Del Method Room Air 06/27/24 07:31 Course Vital Signs Vital signs: Vital Signs Temperature 99.4 F 06/27/24 07:31 Pulse Rate 92 H 06/27/24 07:31 Respiratory Rate 181 H 06/27/24 07:31 Blood Pressure 153/98 H 06/27/24 07:31 Pulse Oximetry 96 06/27/24 07:31 Oxygen Delivery Method Room Air 06/27/24 07:31 Temperature 99.4 F 06/27/24 07:31 Pulse Rate 92 H 06/27/24 07:31 Respiratory Rate 181 H 06/27/24 07:31 Blood Pressure 153/98 H 06/27/24 07:31 Pulse Oximetry 96 06/27/24 07:31 Oxygen Delivery Method Room Air 06/27/24 07:31 Medical Decision Making MDM Narrative Medical decision making narrative: Patient's laboratory testing does not show any acute problem. Her x-ray confirms stool burden but no evidence of obstruction or other complications. We have given her the option of taking enemas at home but she would prefer to be done here. We did try soapsuds enema here and she was only able to retain approximately 200 cc with modest results. She would prefer to go home and try magnesium citrate orally which has worked for her in the past. Lab Data Labs: Lab Results 06/27/24 06/27/24 Range/Units 07:50 08:00 WBC 6.8 (4.0-11.0) 10^3/uL RBC 4.28 (4.20-5.40) 10^6/uL Hgb 13.6 (12.0-16.0) g/dL Hct 40.2 (36.0-48.0) % MCV 93.9 (81.0-99.0) fL MCH 31.8 (26.7-34.0) pg MCHC 33.8 (29.9-35.2) g/dL RDW 12.2 (11.0-15.0) % Plt Count 243 (150-450) 10^3/uL MPV 10.0 (9.5-13.5) fL Neut % (Auto) 70.8 (43.0-75.0) % Lymph % (Auto) 22.7 (20.5-60.0) % [place] % (Auto) 5.7 (1.7-12.0) % Eos % (Auto) 0.3 L (0.9-7.0) % Baso % (Auto) 0.4 (0.2-2.0) % Neut # (Auto) 4.8 (1.4-6.5) 10^3/uL Lymph # (Auto) 1.6 (1.2-3.8) 10^3/uL [place] # (Auto) 0.4 (0.3-0.8) 10^3/uL Eos # (Auto) 0.0 (0.0-0.7) 10^3/uL Baso # (Auto) 0.0 (0.0-0.1) 10^3/uL Abs Immat Gran (auto) 0.01 (0.00-0.03) 10^3/uL Imm/Tot Granulo (auto) 0.1 (0.0-0.5) % Sodium 140 (136-145) mmol/L Potassium 3.6 (3.5-5.1) mmol/L Chloride 103 (98-107) mmol/L Carbon Dioxide 27.6 (21.0-32.0) mmol/L Anion Gap 13.0 BUN 13.0 (7.0-18.0) mg/dL Creatinine 0.79 (0.55-1.02) mg/dL Est GFR ( Amer) >60 (>=60 mL/min/1.73m^2) Est GFR (Non-Af Amer) >60 (>=60 mL/min/1.73m^2) BUN/Creatinine Ratio 16.5 Glucose 114 H (74-106) mg/dL Lactate 0.9 (0.4-2.0) mmol/L Calcium 9.6 (8.5-10.1) mg/dL Urine Color Yellow (YELLOW) Urine Clarity Clear (CLEAR) Urine pH 7.0 (5.0-9.0) Ur Specific [place] 1.020 (1.005-1.025) Urine Protein Negative (NEG/TRACE) mg/dL Urine Glucose (UA) Negative (NEGATIVE) mg/dL Urine Ketones Negative (NEGATIVE) mg/dL Urine Occult Blood Negative (NEGATIVE) Urine Nitrite Negative (NEGATIVE) Urine Bilirubin Negative (NEGATIVE) Urine Urobilinogen 0.2 (0.2-1.0) EU/dL Ur Leukocyte Esterase Negative (NEGATIVE) Discharge Plan Discharge Chief Complaint: Nausea/Vomiting/Diarrhea Clinical Impression: Constipation Patient Disposition: Home, Self-Care Time of Disposition Decision: 10:13 Prescriptions / Home Meds: No Action albuterol sulfate 90 mcg/actuation HFA aerosol inhaler 2 inh inhalation Q6H PRN (Reason: shortness of breath or wheezing) cyclobenzaprine 10 mg tablet 10 mg PO Q8H PRN (Reason: muscle spasm) Trelegy Ellipta 100-62.5-25 mcg blister with device 1 inh inhalation DAILY losartan-hydrochlorothiazide [Hyzaar] 100-25 mg tablet 1 tab PO DAILY omeprazole 40 mg capsule,delayed release(DR/EC) 40 mg PO DAILY rosuvastatin [Crestor] 10 mg tablet 10 mg PO DAILY potassium chloride 20 mEq tablet extended release 20 meq PO BID alprazolam 0.5 mg tablet 0.25 mg PO TID PRN (Reason: anxiety) diltiazem HCl 60 mg tablet 60 mg PO TID loratadine [Loradamed] 10 mg tablet 10 mg PO DAILY fluoxetine 40 mg capsule 40 mg PO DAILY ipratropium bromide 0.02 % solution 2.5 ml inhalation Q8H PRN (Reason: shortness of breath or wheezing) Qty: 75 0RF levalbuterol HCl 1.25 mg/3 mL solution for nebulization 1.25 mg inhalation Q8H PRN (Reason: shortness of breath or wheezing) Qty: 75 0RF prednisone 20 mg tablet 20 mg PO BID 7 Days Qty: 14 0RF Mucinex DM 30-600 mg tablet extended release 12 hr 1 tab PO DAILY Qty: 10 0RF levofloxacin 500 mg tablet 500 mg PO DAILY 7 Days Qty: 7 0RF Print Language: Kinyarwanda Additional Instructions: May use magnesium citrate for bowel movement. Referrals: Shaheed Crow MD [Primary Care Provider] - 1 week
--- NOTE | 2024-06-27 07:50 | XR_ITS ---
The [address] [address] Patient Name: KOLTON NAPIER MRN: [id number] date: 1945 Sex: F Assigned Patient Location: ER Current Patient Location: ER Accession/Order Number: [id number] Exam Date: 06/27/2024 08:10 Report Date: 06/27/2024 10:07 At the request of: YANIRA RODRIGUEZ Procedure: XR acute abdomen series EXAM: XR acute abdomen series. HISTORY: No bowel movement/lower abdominal pain. COMPARISON: Chest x-ray 03/30/2024. CT abdomen/pelvis 12/23/2017. TECHNIQUE: AP chest x-ray with upright and supine abdominal x-rays. FINDINGS: Cardiac size appears unchanged. Trachea is midline. No mediastinal widening. Chronic interstitial thickening is noted. No interval consolidative change, pneumothorax or effusion. Similar asymmetric elevation of the right hemidiaphragm. 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 Mild to moderate stool throughout the course of the colon. No dilated air-filled small or large bowel loops identified to suggest obstruction. Cholecystectomy clips in the right upper quadrant. No pathologic-appearing abdominal calcifications. S-shaped curvature of the thoracolumbar spine. Bones are osteopenic. XR/XR acute abdomen series IMPRESSION: 1. Stable nonacute chest. 2. Mild to moderate stool throughout the course of the colon. No bowel obstruction. Electronically authenticated by: JAMI KENNEY Date: 06/27/2024 10:07
[2024-06-27 08:19] LABS: BUN Creatinine Ratio 16.5; Calcium 9.6 mg/dL (8.5-10.1); Carbon Dioxide 27.6 mmol/L (21.0-32.0); Chloride 103 mmol/L (98-107); Estimated GFR (African America >60 (>=60 mL/min/1.73m^2); Estimated GFR (Non-African Ame >60 (>=60 mL/min/1.73m^2); Glucose 114 mg/dL (74-106); Potassium 3.6 mmol/L (3.5-5.1); Sodium 140 mmol/L (136-145)
[2024-06-27 08:25] LABS: Basophils Percent Auto 0.4 % (0.2-2.0); Eosinophils Percent Auto 0.3 % (0.9-7.0); Hematocrit 40.2 % (36.0-48.0); Hemoglobin 13.6 g/dL (12.0-16.0); Immature Granulocytes Abs Auto 0.01 10^3/uL (0.00-0.03); Immature Granulocytes Pct Auto 0.1 % (0.0-0.5); Lymphocytes Absolute Auto 1.6 10^3/uL (1.2-3.8); Lymphocytes Percent Auto 22.7 % (20.5-60.0); Mean Corpuscular HGB Conc 33.8 g/dL (29.9-35.2); Mean Corpuscular Hemoglobin 31.8 pg (26.7-34.0); Mean Corpuscular Volume 93.9 fL (81.0-99.0); Monocytes Absolute Auto 0.4 10^3/uL (0.3-0.8); Monocytes Percent Auto 5.7 % (1.7-12.0); Neutrophils Absolute Auto 4.8 10^3/uL (1.4-6.5); Neutrophils Percent Auto 70.8 % (43.0-75.0); Platelet Count 243 10^3/uL (150-450); Red Blood Count 4.28 10^6/uL (4.20-5.40); Red Cell Distribution Width 12.2 % (11.0-15.0); White Blood Count 6.8 10^3/uL (4.0-11.0)
[2024-06-27 08:26] LABS: Bilirubin Urine NEGATIVE (NEGATIVE); Blood Urine NEGATIVE (NEGATIVE); Clarity Urine CLEAR (CLEAR); Color Urine YELLOW (YELLOW); Glucose Urine UA NEGATIVE (NEGATIVE); Ketones Urine NEGATIVE (NEGATIVE); Leukocyte Esterase Urine NEGATIVE (NEGATIVE); Nitrite Urine NEGATIVE (NEGATIVE); Protein Urine NEGATIVE (NEG/TRACE); Urobilinogen Urine 0.2 EU/dL (0.2-1.0)
[2024-06-27 08:27] LABS: Urine Microscopic Indicated NO
[2024-06-27 08:28] LABS: Lactate/Lactic Acid 0.9 mmol/L (0.4-2.0)
== END 2024-06-27 10:29 | disposition home or self-care (01) ==
PROVIDERS: Emergency Provider Emergency Medicine Emergency Medical Services; PCP Family Medicine
DX: K59.00 Constipation, unspecified (principal); Z90.710 Acquired absence of both cervix and uterus; Z90.49 Acquired absence of other specified parts of digestive tract
CPT/HCPCS: 36415; 74022; 80048; 81003; 83605; 85025; 99284

== ENCOUNTER 2024-07-02 07:16 | Observation (INO) | payer MEDICARE, SELFPAY ==
[2024-07-02] VITALS (7 sets, daily range): BP systolic 121–171; BP diastolic 74–98; PULSE 70–85; TEMP 36.6–37; O2SAT 92–100; BMI 26.6; BMI 25.3
--- NOTE | 2024-07-02 07:28 | XR_ITS ---
The [address] [address] Patient Name: KOLTON NAPIER MRN: [id number] date: 1945 Sex: F Assigned Patient Location: ER Current Patient Location: ER Accession/Order Number: [id number] Exam Date: 07/02/2024 07:40 Report Date: 07/02/2024 08:09 At the request of: YANIRA RODRIGUEZ Procedure: XR acute abdomen series EXAM: XR acute abdomen series , 07/02/2024 HISTORY: Abdominal pain COMPARISON: Previous x-rays from 06/27/2024 TECHNIQUE: X-rays acute abdominal series, including upright and supine position with x-ray of the chest frontal view. FINDINGS: No evidence of free air under the diaphragm. No dilated bowel loops or air-fluid levels are seen. Mild stool seen in the colon. No abnormal soft tissue swelling. Postoperative clips from cholecystectomy. Mild degenerative changes lumbar spine. Cardiac silhouette within normal limits. No hilar or mediastinal enlargement. Mild atherosclerotic calcification of the thoracic aorta with mild tortuosity. No focal infiltrate or evidence of pleural effusion. No acute osseous findings. XR/XR acute abdomen series IMPRESSION: No evidence of bowel obstruction or perforation. No acute cardiopulmonary findings. Electronically authenticated by: LISSA ALMENDAREZ Date: 07/02/2024 08:09
--- OUTSIDE RECORDS SUMMARY | 2024-07-02 07:49 | XMS_ITS | CCD ---
Author Organization [facility] Care Team Providers Care Shirring Tender Name Role Phone ADORE, DR MARIALUISA Anguiano [...] Unavailable NADERER, DR SHAHEED Thomas Admitting Unavailable [place], DR MARIALUISA Anguiano Consulting Unavailable WIL, DR SHAHEED Thomas Primary Care Unavailable [place], DR MARIALUISA Anguiano Attending Unavailable [place], DR MARIALUISA Anguiano Admitting Unavailable [place], DR MARIALUISA Anguiano Consulting Unavailable NADCHRISTIANO, DR SHAHEED Thomas Primary Care Unavailable [place], DR MARIALUISA Anguiano Attending Unavailable WEST, DR MARIALUISA Anguiano Admitting Unavailable [place], DR MARIALUISA Anguiano Consulting Unavailable NADCHRISTIANO, DR SHAHEED Thomas Primary Care Unavailable [place], DR MARIALUISA Anguiano Attending Unavailable WEST, DR MARIALUISA Anguiano Admitting Unavailable Shaheed De La Torre MD Primary Care Provider WIL, SHAHEED Attending Unavailable NADERER, SHAHEED Attending Unavailable NADERER, SHAHEED Attending Unavailable NADERER, SHAHEED Attending Unavailable NADERER, SHAHEED Attending Unavailable NADERER, SHAHEED Attending Unavailable [place], EVE Attending Unavailable ELTAHAWAlida, EVE Attending Unavailable NADCHRISTIANO, SHAHEED Primary Care Unavailable JENA MAS Attending Unavailable Allergies Allergy Classification Reported Allergen(s) Allergy Type Date of Onset Reaction(s) Facility (1 source) Albuterol Drug Allergy [facility] Repository (1 source) Penicillin Drug Allergy [facility] Repository (13 sources) Albuterol Drug Allergy [address] [facility] (13 sources) Cephalosporins (Antibiotic) Drug Allergy 3 Diarrhea, GI intolerance [facility] (15 sources) Penicillins; Translations: [PENICILLINS] Drug Allergy 8 GI intolerance [facility] (14 sources) cefdinir; Translations: [CEFDINIR] Drug Allergy 1 Diarrhea, GI intolerance [facility] (2 sources) Albuterol; Translations: [ALBUTEROL SULFATE] Drug Allergy 9 [facility] Repository Medications Current Medications Medication Drug Class(es) Dates Sig (Normalized) Sig (Original) ALPRAZolam 0.5 mg oral tablet (14 sources) Benzodiazepine Start: 02-17-2024 End: 05-19-2024 take 1 tablet by mouth three times daily as needed for anxiety ALPRAZolam (Xanax) 0.5 MG tablet Indications: LAUREL (generalized anxiety disorder) ([facility]) Take 1 tablet (0.5 mg) by mouth 3 (three) times a day as needed for anxiety 90 tablet 04/19/2024 Active Start: 08-03-2023 End: 10-02-2023 take 0.5 tablet by mouth three times daily as needed for anxiety ALPRAZolam (Xanax) 0.5 MG tablet Indications: LAUREL (generalized anxiety disorder) (CMS/HCC) Take 0.5 tablets (0.25 mg) by mouth [...] Start: 06-10-2023 take 1 capsule by mo uth in the morning FLUoxetine (PROzac) 40 MG capsule Indications: MDD (major depressive disorder), recurrent episode, moderate (HCC) (CMS/HCC) Take 1 capsule (40 mg) by mouth in the morning. 30 capsule 3 06/10/2023 Active 30 actuat fluticasone furoate 0.1 mg/actuat / umeclidinium 0.0625 mg/actuat / vilanterol 0.025 mg/actuat dry powder inhaler (13 sources) Anticholinergic, Corticosteroid, beta2-Adrenergic Agonist Start: 01-14-2023 Iajtmqzkcwc-Bqayjmlna-Tedyjw (Trelegy Ellipta) 100-62.5-25 MCG/ACT aerosol powder 01/14/2023 Active End: 08-19-2023 take 1 puff(s) by inhalation in the morning Tndjvnargus-Srlzilrnv-Elatza (Trelegy Ellipta) 100-62.5-25 MCG/ACT aerosol powder Inhale [...] (13 sources) Polyene Antifungal nystatin (Myc ostatin) 740868 UNIT/GM powder Apply 1 application topically in [...] tablet 1 02/17/2024 Active polyethylene glycol 3350 45879 mg powder for oral solution (10 sources) [...] Classification Problem Date Documented Da te Episodic/Chronic Abdominal pain (2 sources) Pelvic and perineal pain; Translations: [Abdominal pain] Onset: 4 Episodic Anxiety disorders (16 sources) Generalized anxiety disorder; Translations: [Generalized anxiety disorder] Onset: 3 06-10-2023 Chronic Asthma (20 sources) Asthma-chronic obstructive pulmonary disease overlap syndrome; Translations: [Asthma-COPD overlap syndrome] Onset: 3 06-10-2023 Chronic Disorders of lipid metabolism (16 sources) Hyperlipidemia, unspecified; Translations: [Dyslipidemia] Onset: 3 06-10-2023 Chronic Esophageal disorders (15 sources) Gastroesophageal reflux disease without esophagitis; Translations: [Gastro-esophageal reflux disease without esophagitis] Onset: 3 06-10-2023 Chronic Essential hypertension (20 sources) Essential (primary) hypertension; Translations: [Benign essential hypertension] Onset: 2 Chronic Heart valve disorders (15 sources) Mitral and aortic stenosis; Translations: [Rheumatic disorders of both mitral and aortic valves] Onset: 2 06-10-2023 Chronic Mood disorders (16 sources) Recurrent major depressive episodes, moderate ; Translations: [Major depressive disorder, recurrent, moderate] Onset: 3 06-10-2023 Chronic Osteoarthritis (13 sources) Arthritis of left foot; Translations: [Primary osteoarthritis, left ankle and foot] Onset: 3 06-10-2023 Chronic Other aftercare (1 source) Other terminal manager (current) drug therapy; Translations: [OTH FCI CURRENT [...] MALIG NEOPLASM DIGESTIV ORGN] Onset: 3 Episodic Unclassified (1 source) EMS Onset: 4 Past or Other Problems Problem Classification Problem Date Documented Da te Episodic/Chronic Cardiac dysrhythmias (13 sources) Sinus tachycardia; Translations: [Tachycardia, unspecified] Onset: 3 06-10-2023 Episodic Fluid and electrolyte disorders (13 [...] (8 sources) Patient encounter status; Translations: [Other usp (current) drug therapy] Onset: 4 08-19-2023 Episodic Other aftercare (6 sources) Long-term current use of drug therapy; Translations: [Other terminal manager (current) drug therapy] Onset: 4 08-19-2023 Episodic Other connective tissue disease (13 sources) Pain in left foot; Translations: [Pain in left foot] Onset: 3 Resolved: 4 06-10-2023 Episodic Other injuries and conditions due to external causes (13 sources) At low risk for fall; Translations: [History of falling] Onset: 3 06-10-2023 Episodic Other non-traumatic joint disorders (13 sources) [...] Test Name Value Interpretation Reference Range Facility CBC AND AUTO DIFFon 06-29-20 ABSOLUTE BASOPHIL 0.0 X10E9/L Normal 0.0-0.2 [facility] Comment on above: Performed By: #### C EVELIN, 3039-3, CMP #### [facility] ([id number]) [address] [place] [address] 41745 ABSOLUTE NEUTROPHIL 4.9 X10E9/L Normal 1.5-6.6 [facility] Comment on above: Performed By: #### Harika WATERS, 0-3, CMP #### [facility] ([id number]) [address] [place] [address] 01352 Basophils/100 WBC (Bld) 0.5 % Normal [facility] Comment on above: Performed By: #### Harika WATERS, 0-3, CMP #### [facility] ([id number]) [address] [place] [address] 08440 Eosinophils (Bld) [#/Vol] 0.1 10*3/uL Normal 0.0-0.4 [facility] Comment on above: Performed By: #### Harika WATERS, 3039-09, CMP #### [facility] ([id number]) [address] [place] [address] 22929 Eosinophils/100 WBC (Bld) 0.7 % Normal [facility] Comment on above: Performed By: #### Harika WATERS, 3039-09, CMP #### [facility] ([id number]) [address] [place] [address] 08831 Erythrocyte distribution width (RBC) [Ratio] 12.6 % Normal 11.5-15.0 [facility] Comment on above: Performed By: #### Harika WATERS, 3039-09, CMP #### [facility] ([id number]) [address] [place] [address] 14787 Hematocrit (Bld) [Volume fraction] 40.9 % Normal 35-47 [facility] Comment on above: Performed By: #### Harika WATERS, 3039-09, CMP #### [facility] ([id number]) [address] [place] [address] 08397 Hemoglobin (Bld) [Mass/Vol] 13.9 g/dL Normal 11.7-15.5 [facility] Comment on above: Performed By: #### Harika WATERS, 3039-09, CMP #### [facility] ([id number]) [address] [place] [address] 10431 Lymphocytes (Bld) [#/Vol] 1.7 10*3/uL Normal 1.0-3.5 [facility] Comment on above: Performed By: #### Harika WATERS, 3039-09, CMP #### [facility] ([id number]) [address] [place] [address] 59998 Lymphocytes/100 WBC (Bld) 23.6 % Normal [facility] Comment on above: Performed By: #### Harika WATERS, 3039-09, CMP #### [facility] ([id number]) [address] [place] [address] 57627 MCH (RBC) [Entitic mass] 31.8 pg Normal 27-34 [facility] Comment on above: Performed By: #### Harika WATERS, 3039-09, CMP #### [facility] ([id number]) [address] [place] [address] 60412 MCHC (RBC) [Mass/Vol] 34.1 g/dL Normal 32-36 [facility] Comment on above: Performed By: #### Harika WATERS, 3039-09, CMP #### [facility] ([id number]) [address] [place] [address] 36255 MCV (RBC) [Entitic vol] 93 fL Normal 80-100 [facility] Comment on above: Performed By: #### Harika WATERS, 3039-09, CMP #### [facility] ([id number]) [address] [place] [address] 82759 Monocytes (Bld) [#/Vol] 0.5 10*3/uL Normal 0-0.9 [facility] Comment on above: Performed By: #### Harika WATERS, 3039-09, CMP #### [facility] ([id number]) [address] [place] [address] 63817 Monocytes/100 WBC (Bld) 7.4 % Normal [facility] Comment on above: Performed By: #### Harika WATERS, 3039-09, CMP #### [facility] ([id number]) [address] [place] [address] 90794 Neutrophils/100 WBC (Bld) 67.8 % Normal [facility] Comment on above: Performed By: #### Harika WATERS, 3, CMP #### [facility] ([id number]) [address] [place] [address] 93074 Platelet mean volume (Bld) [Entitic vol] 8.0 fL Normal 7-12 [facility] Comment on above: Performed By: #### Harika WATERS, 0-3, CMP #### [facility] ([id number]) [address] [place] [address] 70345 Platelets (Bld) [#/Vol] 258 10*3/uL Normal 150-450 [facility] Comment on above: Performed By: #### Harika WATERS, 3039-3, CMP #### [facility] ([id number]) [address] [place] [address] 61081 RBC COUNT 4.38 X10E12/L Normal 3.80-5.20 [facility] Comment on above: Performed By: #### Harika WATERS, 3, CMP #### [facility] ([id number]) [address] [place] [address] 83362 WBC (Bld) [#/Vol] 7.3 10*3/uL Normal 4.0-11.0 [facility] Comment on above: Performed By: #### Harika WATERS, 3039-3, CMP #### [facility] ([id number]) [address] [place] [address] [address] METABOLIC PANE [facility] 06-29-2024 Albumin [Mass/Vol] 4.7 g/dL Normal 3.2-5.3 [facility] Comment on above: Performed By: #### Harika WATERS, 0-3, CMP #### [facility] ([id number]) [address] [place] [address] 56029 ALP [Catalytic activity/Vol] 66 U/L Normal 39-130 [facility] Comment on above: Performed By: #### Harika WATERS, 0-3, CMP #### [facility] ([id number]) [address] [place] [address] 12824 ALT [Catalytic activity/Vol] 16 U/L Normal 0-31 [facility] Comment on above: Performed By: #### Harika WATERS, 3039-09, CMP #### [facility] ([id number]) [address] [place] [address] 97186 Anion gap [Moles/Vol] 10 mmol/L Normal 5-15 [facility] Comment on above: Performed By: #### Harika WATERS, 3039-09, CMP #### [facility] ([id number]) [address] [place] [address] 03371 AST [Catalytic activity/Vol] 25 U/L Normal 0-41 [facility] Comment on above: Performed By: #### Harika WATERS, 3039-09, CMP #### [facility] ([id number]) [address] [place] [address] 10799 Bilirubin [Mass/Vol] 0.4 mg/dL Normal 0.3-1.2 [facility] Comment on above: Performed By: #### Harika WATERS, 3039-09, CMP #### [facility] ([id number]) [address] [place] [address] 42914 Calcium [Mass/Vol] 10.0 mg/dL Normal 8.5-10.5 [facility] Comment on above: Performed By: #### Harika WATERS, 3039-09, CMP #### [facility] ([id number]) [address] [place] [address] [place] [address] Chloride [Moles/Vol] 101 mmol/L Normal 98-109 [facility] Comment on above: Performed By: #### Harika WATERS, 3039-09, CMP #### [facility] ([id number]) [address] [place] [address] 23620 CO2 [Moles/Vol] 23 mmol/L Normal 22-32 [facility] Comment on above: Performed By: #### Harika WATERS, 0, CMP #### [facility] ([id number]) [address] [place] [address] 13119 Creatinine [Mass/Vol] 0.74 mg/dL Normal 0.40-1.00 [facility] Comment on above: Result Comment: METH OD TRACEABLE TO IDMS STANDARD Performed By: #### C EVELIN, 3039-09, CMP #### [facility] ([id number]) [address] [place] [address] 32822 GFR/1.73 sq M.predicted among non-blacks MDRD (S/P/Bld) [Vol rate/Area] 83 mL/min/{1.73_m2} Normal >59 [facility] Comment on above: Result Comment: Reported eGFR is based on the CKD-EPI 2020 equation that does not use a race coefficient. Performed By: #### C EVELIN, 3039-09, CMP #### [facility] ([id number]) [address] [place] [address] 21151 Glucose [Mass/Vol] 110 mg/dL High 65-99 [facility] Comment on above: Performed By: #### C EVELIN, 3039-09, CMP #### [facility] ([id number]) [address] [place] [address] 48983 Potassium [Moles/Vol] 4.0 mmol/L Normal 3.5-5.0 [facility] Comment on above: Performed By: #### C EVELIN, 3039-09, CMP #### [facility] ([id number]) [address] [place] [address] 42908 Protein [Mass/Vol] 7.9 g/dL Normal 6.0-8.0 [facility] Comment on above: Performed By: #### C BCA, 3039-09, CMP #### [facility] ([id number]) [address] [place] [address] 44487 Sodium [Moles/Vol] 134 mmol/L Normal 134-146 [facility] Comment on above: Performed By: #### C BCA, 3040-3, CMP #### [facility] ([id number]) [address] [place] [address] Urea nitrogen [Mass/Vol] 14 mg/dL Normal 5-27 [facility] Comment on above: Performed By: #### C BCA, 3040-3, CMP #### [facility] ([id number]) [address] [place] [address] CT ABDOMEN AND PELVIS W CONT on 06-29-2024 CT ABDOMEN AND PELVIS W CONT CT ABDOMEN AND PELVIS W CONT CLINICAL HISTORY: Acute nonlocalized abdominal pain. Lower abdominal pain. Rectal pain. TECHNIQUE/PROCEDURE: CT abdomen and pelvis with intravenous contrast. All CT scans at this facility use dose modulation, iterative reconstruction, and/or weight based dosing when appropriate to reduce radiation dose to as low as reasonably achievable COMPARISON: CT abdomen pelvis 05/27/2019. FINDINGS: Mild cardiomegaly with left atrial enlargement measuring 5.4 cm in AP diameter. Coronary artery calcifications are present. No pericardial effusion. Dependent atelectasis. Noncirrhotic liver morphology. Cholecystectomy. Pancreas, spleen, adrenals, kidneys, ureters, and urinary bladder show no acute abnormality. Left renal inferior pole nonobstructing calculus measuring 4 mm. Hysterectomy. Large and small bowel are normal in caliber. Ileocecal junction within the right midabdomen. Terminal ileum is unremarkable. Appendix is surgically absent. No free intraperitoneal gas. No abnormal free fluid. No enlarged lymph nodes by size criteria. Moderate calcified plaque of the abdominal aorta which is nonaneurysmal. 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 Portal vein is patent. Abdominal wall shows no acute abnormality. Chronic vertebral body height loss of T11, T12, L1, and L2. Grade 2 anterolisthesis of L4 on L5. Partial fusion of the L3-L4 facet. Lumbosacral transitional vertebral anatomy. IMPRESSION: * No acute findings within the abdomen or pelvis. * 4 mm nonobstructing left nephrolithiasis. Finalized by Daren Jerry MD on 06/29/2024 10:28 AM Normal [facility] LIPASEon 06-29-2024 Lipase [Catalytic activity/Vol] 35 U/L Normal 17-40 [facility] Comment on above: Performed By: #### C BCA, 3040-3, CMP #### [facility] ([id number]) [address] [place] [address], [place] [address] Office Visiton 06-26-2024 Follow-up visit [id number] Pankaj Napier 1945 F Date Provider Department Center 06/26/[address] [place] [address] [facility] Family History Problem Relation Age of Onset Coronary artery disease Mother Coronary artery disease Brother Family Status - Relation Status Age at Mother Brother Level of Service:68606 ME OFFICE/OUTPATIENT ESTABLISHED LOW MDM 20 MIN Normal [facility] ALL HEMOGLOBINon 05-30-2024 Hemoglobin (Bld) [Mass/Vol] 13.1 g/dL 12.0 - 16.0 g/dL [facility] Healthcare Office Visiton 08-23-2023 Follow-up visit [id number] Pankaj Napier 1945 F Date Provider Department Center [facility]20[facility] Family History Problem Relation Age of Onset Coronary artery disease Mother Coronary artery disease Brother Family Status - Relation Status Age at Mother Brother Level of Service:61187 ME OFFICE/OUTPATIENT ESTABLISHED LOW MDM 20 MIN Normal [facility] MG MAMM SCREEN 3D SHARLENE CADon 09-24-2022 MG MAMM SCREEN 3D SHARLENE CAD Patient: KOLTON NAPIERNeal Exam Date: 09/24/2022 : 1945 Gender:F Ordering : DR SHAHEED DE LA TORRE . Admission #: [id number] Family : Order #: [id number] CLICK HERE TO VIEW EXAM RADIOLOGY REPORT [...] stomach cancer at age 80. LOCATION: [facility] BREAST COMPOSITION: Scattered areas fibroglandular [...] M.D. on 09/25/2022 at 07:08 Normal [facility] CBC AUTO DIFFon 07-17-2022 BASO # 0.1 103/ul Normal 0.0-0.1 [facility] Comment on above: Performed By: #### C BC ####[facility] [address] [place] [address]Dr. Fidencio Walker Basophils/100 WBC (Bld) 0.8 % Normal 0.2-2.0 [facility] Comment on above: Performed By: #### C BC ####[facility] [address] [place] [id number] Walker EO # 0.4 103/ul Normal 0.0-0.7 [facility] Comment on above: Performed By: #### C BC ####[facility] [address] [place] [id number] Walker Eosinophils/100 WBC (Bld) 4.7 % Normal 0.9-7.0 [facility] Comment on above: Performed By: #### C BC ####[facility] [address] [place] [id number] Walker Erythrocyte distribution width (RBC) [Ratio] 13.0 % Normal 11.0-15.0 [facility] Comment on above: Performed By: #### C BC ####[facility] [address] [place] [address]Dr. Fidencio Walker Hematocrit (Bld) [Volume fraction] 43.0 % Normal 36.0-48.0 [facility] Comment on above: Performed By: #### C BC ####[facility] [address] [place] [address]Dr. Fidencio Walker Hemoglobin (Bld) [Mass/Vol] 13.1 g/dL Normal 12.0-16.0 [facility] Comment on above: Performed By: #### C BC ####[facility] [address] [place], [place] [address]Dr. Fidencio Walker IG # 0.02 10e3/ul Normal 0.00-0.03 [facility] Comment on above: Performed By: #### C BC ####[facility] [address] [place], [place] [address]Dr. Fidencio Walker IG % 0.3 % Normal 0.0-0.5 [facility] Comment on above: Performed By: #### C BC ####[facility] [address] [place], [place] [address]DrNeal Fidencio Walker LYMPH # 2.2 103/ul Normal 1.2-3.8 [facility] Comment on above: Performed By: #### C BC ####[facility] [address] [place], [place] [address]DrNeal Galileanickolas Walker Lymphocytes/100 WBC (Bld) 28.7 % Normal 20.5-60.0 [facility] Comment on above: Performed By: #### C BC ####[facility] [address] [place], [place] [address]DrNeal Galileanickolas Walker MANUAL DIFF REQ NO Normal [facility] Comment on above: Performed By: #### C BC ####[facility] [address] [place] [address]Dr. Fidencio Walker MCH (RBC) [Entitic mass] 30.9 pg Normal 26.7-34.0 [facility] Comment on above: Performed By: #### C BC ####[facility] [address] [place] [phone]. Fidencio Aaron MCHC (RBC) [Mass/Vol] 30.5 g/dL Normal 29.9-35.2 [facility] Comment on above: Performed By: #### C BC ####[facility] [address] [place] [id number] Walker MCV (RBC) [Entitic vol] 101.4 fL Critically high 81.0-99.0 [facility] Comment on above: Performed By: #### C BC ####[facility] [address] [place], [place] [address]DrNeal Walker MONO # 0.5 103/ul Normal 0.3-0.8 [facility] Comment on above: Performed By: #### C BC ####[facility] [address] [place], [place] [address]Dr. Fidencio Walker Monocytes/100 WBC (Bld) 7.1 % Normal 1.7-12.0 [facility] Comment on above: Performed By: #### C BC ####[facility] [address] [place], [place] [address]Dr. Fidencio Walker NEUT # 4.4 103/ul Normal 1.4-6.5 [facility] Comment on above: Performed By: #### C BC ####[facility] [address] [place], [place] [address]Dr. Fidencio Walker Neutrophils/100 WBC (Bld) 58.4 % Normal 43.0-75.0 [facility] Comment on above: Performed By: #### C BC ####[facility] [address] [place], [place] [address]DrNeal Walker Platelet mean volume (Bld) [Entitic vol] 10.8 fL Normal 9.5-13.5 [facility] Comment on above: Performed By: #### C BC ####[facility] [address] [place], [place] [address]DrNeal Walker PLT 200 103/ul Normal 150-450 [facility] Comment on above: Performed By: #### C BC ####[facility] [address] [place], [place] [address]Fe. Fidencio Walker RBC 4.24 106/ul Normal 4.20-5.40 [facility] Comment on above: Performed By: #### C BC ####[facility] [address] [place], [place] [address]Gq. Fidencio Walker WBC 7.5 103/ul Normal 4.0-11.0 [facility] Comment on above: Performed By: #### C BC ####[facility] [address] [place], [place] [address]Mn. Fidencio Walker LIPID PROFILEon 07-17-2022 CHOL-HDL RATIO NORM SEE BELOW Normal [facility] Comment on above: Result Comment: 3.3 - 4.4 LOW RISK 4.4 - 7.1 AVERAGE RISK 7.1 - 11.0 MODERATE RISK >11.0 HIGH RISK Performed By: #### L IPID, LIVER, BMP ####[facility] [address] [place] [id number]. Fidencio Walker Cholesterol [Mass/Vol] 134 mg/dL Normal <=200 [facility] Comment on above: Performed By: #### L IPID, LIVER, BMP ####[facility] [address] [place] [id number]. Fidencio Walker Cholesterol in HDL [Mass/Vol] 57 mg/dL Normal 40-60 [facility] Comment on above: Performed By: #### L IPID, LIVER, BMP ####[facility] [address] [place] [id number]. Fidencio Walker Cholesterol in LDL [Mass/Vol] 59.6 mg/dL Normal [facility] Comment on above: Performed By: #### L IPID, LIVER, BMP ####[facility] [address]xr[address] [place] [id number]. Fidencio Walker Cholesterol.total/Ch olesterol in HDL [Mass ratio] 2.4 {ratio} Normal [facility] Comment on above: Performed By: #### L IPID, LIVER, BMP ####[facility] [address] [place] [id number]. Fidencio Walker HDL NORMAL > or = 60 mg/dl - LO W CARDIOVASCULAR RISK <40 mg/dl - HIGH CARDIOVASCULAR RISK Normal [facility] Comment on above: Performed By: #### L IPID, LIVER, BMP ####[facility] [address] [place] [address]Dr. Fidencio Walker LDL CALC NORMAL SEE BELOW Normal [facility] Comment on above: Result Comment: <100 mg/dl OPTIMAL 100 - 129 mg/dl NEAR OR ABOVE OPTIMAL 130 - 159 mg/dl BORDERLINE HIGH 160 - 189 mg/dl HIGH >190 mg/dl VERY HIGH Performed By: #### L IPID, LIVER, BMP ####[facility] [address] [place] [address]Dr. Fidencio Walker Triglyceride [Mass/Vol] 87 mg/dL Normal <=150 [facility] Comment on above: Performed By: #### L IPID, LIVER, BMP ####[facility] [address] [place] [address]Dr. Fidencio Walker VLDL CALC 17.4 mg/dL Normal [facility] Comment on above: Performed By: #### L IPID, LIVER, BMP ####[facility] [address] [place] [address]Dr. Fidencio Walker LIVER PROFILEon 07-17-2022 Albumin [Mass/Vol] 3.7 g/dL Normal 3.4-5.0 [facility] Comment on above: Performed By: #### L IPID, LIVER, BMP ####[facility] [address] [place] [address]Dr. Fidencio Walker Albumin/Globulin [Mass ratio] 1.0 {ratio} Normal [facility] Comment on above: Performed By: #### L IPID, LIVER, BMP ####[facility] [address] [place] [address]Dr. Fidencio Walker ALP [Catalytic activity/Vol] 58 U/L Normal 46-116 [facility] Comment on above: Performed By: #### L IPID, LIVER, BMP ####[facility] [address]fr[address] [place] [address]Dr. Fidencio Walker ALT [Catalytic activity/Vol] 13 U/L Critically low 14-59 [facility] Comment on above: Performed By: #### L IPID, LIVER, BMP ####[facility] [address] [place] [address]Dr. Fidencio Walker AST [Catalytic activity/Vol] 18 U/L Normal 15-37 [facility] Comment on above: Performed By: #### L IPID, LIVER, BMP ####[facility] [address]khakt[address] [place] [address]Dr. Fidencio Wakler BILI, CONJUGATED 0.1 mg/dL Normal 0.0-0.2 [facility] Comment on above: Performed By: #### L IPID, LIVER, BMP ####[facility] [address] [place], [place] [address]Dr. Fidencio Walker Bilirubin [Mass/Vol] 0.3 mg/dL Normal 0.2-1.0 [facility] Comment on above: Performed By: #### L IPID, LIVER, BMP ####[facility] [address] [place], [place] [address]Dr. Fidencio Walker Globulin (S) [Mass/Vol] 3.6 g/dL Normal [facility] Comment on above: Performed By: #### L IPID, LIVER, BMP ####[facility] [address] [place] [address]Dr. Fidencio Walker Protein [Mass/Vol] 7.3 g/dL Normal 6.4-8.2 [facility] Comment on above: Performed By: #### L IPID, LIVER, BMP ####[facility] [address]th[address] [place] [address]Dr. Fidencio Walker PROF CHEM 8 (BAS METB)on Anion gap [Moles/Vol] 11.3 mmol/L Normal [facility] Comment on above: Performed By: #### L IPID, LIVER, BMP ####[facility] [address] [place], [place] [address]Dr. Fidencio Walker Calcium [Mass/Vol] 9.2 mg/dL Normal 8.5-10.1 [facility] Comment on above: Performed By: #### L IPID, LIVER, BMP ####[facility] [address] [place] [address]Dr. Fidencio Walker Chloride [Moles/Vol] 102 mmol/L Normal 98-107 [facility] Comment on above: Performed By: #### L IPID, LIVER, BMP ####[facility] [address] [place] [address]Dr. Fidencio Walker CO2 [Moles/Vol] 29.5 mmol/L Normal 21.0-32.0 [facility] Comment on above: Performed By: #### L IPID, LIVER, BMP ####[facility] [address] [place] [address]Dr. Fidencio Walker Creatinine [Mass/Vol] 0.92 mg/dL Normal 0.55-1.02 [facility] Comment on above: Performed By: #### L IPID, LIVER, BMP ####[facility] [address] [place] [address]Dr. Fidencio Walker EGFR-AF PUERTO RICAN >60 Normal >=60 [facility] Comment on above: Result Comment: Prev iously reported as: (blank) On 07/17/2022 13:28 By AJR Performed By: #### L IPID, LIVER, BMP ####[facility] [address] [place] [address]Dr. Fidencio Walker EGFR-NON AF PUERTO RICAN 59 mL/min/1.73m2 Critically low >=60 [facility] Comment on above: Result Comment: Prev iously reported as: (blank) On 07/17/2022 13:28 By AJR Performed By: #### L IPID, LIVER, BMP ####[facility] [address] [place] [address]Dr. Fidencio Walker Glucose [Mass/Vol] 98 mg/dL Normal 74-106 [facility] Comment on above: Performed By: #### L IPID, LIVER, BMP ####[facility] [address] [place] [id number]. Fidencio Walker Potassium [Moles/Vol] 3.8 mmol/L Normal 3.5-5.1 [facility] Comment on above: Performed By: #### L IPID, LIVER, BMP ####[facility] [address] [place], [place] [address]Dq. Fidencio Walker Sodium [Moles/Vol] 139 mmol/L Normal 136-145 [facility] Comment on above: Performed By: #### L IPID, LIVER, BMP ####[facility] [address] [place], [place] [address]Zk. Fidencio Walker Urea nitrogen [Mass/Vol] 19.0 mg/dL Critically high 7.0-18.0 [facility] Comment on above: Performed By: #### L IPID, LIVER, BMP ####[facility] [address] [place] [id number]. Fidencio Walker Urea nitrogen/Creatinine [Mass ratio] 20.7 mg/mg Normal [facility] Comment on above: Performed By: #### L IPID, LIVER, BMP ####[facility] [address] [place] [id number]. Fidencio Walker VC INJ SCL BERTA CYLINDER PRESS OPERATOR VEINSon 1 VC INJ SCL BERTA CYLINDER PRESS OPERATOR VEINS Patient: KOLTON NAPIER Exam Date: 04/16/2022 : 1945 Gender:F Ordering : DR MARIALUISA AVITIA M.D. Admission #: [id number] Family : Order #: [id number] CLICK HERE TO VIEW EXAM RADIOLOGY REPORT PROCEDURE: VEIN CENTER INJECTION SCLEROSING SOLUTION MULTIPLE VEINS SAME COMPARISON: VC INJ SCL BERTA CYLINDER PRESS OPERATOR VEINS, 04/02/2022. VC INJ SCL BERTA CYLINDER PRESS OPERATOR VEINS, 03/24/2022. INDICATIONS: Pain co-occurrent and [...] Avitia MD on 04/16/2022 at 14:34 Normal [facility] VC INJ SCL BERTA CYLINDER PRESS OPERATOR VEINSon 0 04-02-2022 VC INJ SCL BERTA CYLINDER PRESS OPERATOR VEINS Patient: KOLTON NAPIER. Exam Date: 04/02/2022 : 1945 Gender:F Ordering : DR MARIALUISA VAITIA M.D. Admission #: [id number] Family : Order #: [id number] CLICK HERE TO VIEW EXAM RADIOLOGY REPORT PROCEDURE: VEIN CENTER INJECTION SCLEROSING SOLUTION MULTIPLE VEINS SAME COMPARISON: VC INJ SCL BERTA CYLINDER PRESS OPERATOR VEINS, 03/24/2022. INDICATIONS: Pain co-occurrent and [...] Vaughan M.D. on 04/02/2022 at 15:47 Normal [facility] VC INJ SCL BERTA CYLINDER PRESS OPERATOR VEINSon 0 03-24-2022 VC INJ SCL BERTA CYLINDER PRESS OPERATOR VEINS Patient: KOLTON NAPIER. Exam Date: 03/24/2022 : 1945 Gender:F Ordering : DR MARIALUISA AVITIA M.D. Admission #: [id number] Family : Order #: [id number] CLICK HERE TO VIEW EXAM RADIOLOGY REPORT PROCEDURE: VEIN CENTER INJECTION SCLEROSING SOLUTION MULTIPLE VEINS SAME COMPARISON: VC INJ SCL BERTA CYLINDER PRESS OPERATOR VEINS, 03/19/2022. VC INJ SCL BERTA CYLINDER PRESS OPERATOR VEINS, 03/10/2022. INDICATIONS: Pain co-occurrent and [...] Avitia MD on 03/24/2022 at 13:41 Normal [facility] VC INJ SCL BERTA CYLINDER PRESS OPERATOR VEINSon 0 03-19-2022 VC INJ SCL BERTA CYLINDER PRESS OPERATOR VEINS Patient: KOLTON NAPIER Exam Date: 03/19/2022 : 1945 Gender:F Ordering : DR MARIALUISA AVITIA M.D. Admission #: [id number] Family : Order #: [id number] CLICK HERE TO VIEW EXAM RADIOLOGY REPORT PROCEDURE: VEIN CENTER INJECTION SCLEROSING SOLUTION MULTIPLE VEINS SAME COMPARISON: VC INJ SCL BERTA CYLINDER PRESS OPERATOR VEINS, 03/10/2022. VC INJ SCL BERTA CYLINDER PRESS OPERATOR VEINS, 03/03/2022. INDICATIONS: Pain co-occurrent and [...] Avitia MD on 03/19/2022 at 15:13 Normal [facility] VC INJ SCL BERTA CYLINDER PRESS OPERATOR VEINSon 0 03-10-2022 VC INJ SCL BERTA CYLINDER PRESS OPERATOR VEINS Patient: KOLTON NAPIER. Exam Date: 03/10/2022 : 1945 Gender:F Ordering : DR MARIALUISA AVITIA M.D. Admission #: [id number] Family : Order #: [id number] CLICK HERE TO VIEW EXAM RADIOLOGY REPORT PROCEDURE: VEIN CENTER INJECTION SCLEROSING SOLUTION MULTIPLE VEINS SAME COMPARISON: VC INJ SCL BERTA CYLINDER PRESS OPERATOR VEINS, 03/03/2022. INDICATIONS: Pain co-occurrent and [...] Avitia MD on 03/10/2022 at 14:38 Normal [facility] VC INJ SCL BERTA CYLINDER PRESS OPERATOR VEINSon 0 03-03-2022 VC INJ SCL BERTA CYLINDER PRESS OPERATOR VEINS Patient: KOLTON NAPIER. Exam Date: 03/03/2022 : 1945 Gender:F Ordering : DR MARIALUISA AVITIA M.D. Admission #: [id number] Family : Order #: [id number] CLICK HERE TO VIEW EXAM RADIOLOGY REPORT [...] Avitia MD on 03/03/2022 at 15:25 Normal [facility] VC CONSULT FOLLOWUPon 2021 VC CONSULT FOLLOWUP Patient: CARTER NAPIER Exam Date: 02/25/2022 : 1945 Gender:F Ordering : DR MARIALUISA AVITIA M.D. Admission #: [id number] Family : Order #: [id number] CLICK HERE TO VIEW EXAM RADIOLOGY REPORT [...] Vaughan M.D. on 02/25/2022 at 15:41 [facility] VC EXT VENOUS RT LIMITEDon 0 02-25-2022 VC EXT VENOUS RT LIMITED Patient: KOLTNO NAPIER. Exam Date: 02/25/2022 : 1945 Gender:F Ordering : DR MARIALUISA AVITIA M.D. Admission #: [id number] Family : Order #: [id number] CLICK HERE TO VIEW EXAM RADIOLOGY REPORT [...] Vaughan M.D. on 02/25/2022 at 15:39 Normal [facility] VC INJ FOAM SCLERO W US MLTI on 02-19-2022 VC INJ FOAM SCLERO W US MLTI Patient: KOLTON NAPIER Exam Date: 02/19/2022 : 1945 Gender:F Ordering : DR MARIALUISA AVITIA M.D. Admission #: [id number] Family : Order #: [id number] CLICK HERE TO VIEW EXAM RADIOLOGY REPORT [...] Vaughan M.D. on 02/20/2022 at 09:07 Normal [facility] VC CONSULT FOLLOWUPon 2021 VC CONSULT FOLLOWUP Patient: CARTER NAPIER Exam Date: 02/10/2022 : 1945 Gender:F Ordering : DR MARIALUISA AVITIA M.D. Admission #: [id number] Family : Order #: [id number] CLICK HERE TO VIEW EXAM RADIOLOGY REPORT [...] Avitia MD on 02/10/2022 at 14:56 Normal [facility] VC EXT VENOUS RT LIMITEDon 0 02-10-2022 VC EXT VENOUS RT LIMITED Patient: KOLTON NAPIER. Exam Date: 02/10/2022 : 1945 Gender:F Ordering : DR MARIALUISA AVITIA M.D. Admission #: [id number] Family : Order #: [id number] CLICK HERE TO VIEW EXAM RADIOLOGY REPORT [...] Avitia MD on 02/10/2022 at 14:38 Normal [facility] VC ENDOVENOUS ABL 1ST V RTon 02-03-2022 VC ENDOVENOUS ABL 1ST V RT Patient: KOLTON NAPIER. Exam Date: 02/03/2022 : 1945 Gender:F Ordering : DR MARIALUISA AVITIA M.D. Admission #: [id number] Family : Order #: [id number] CLICK HERE TO VIEW EXAM RADIOLOGY REPORT [...] Vaughan M.D. on 02/03/2022 at 14:01 Normal [facility] COMP CONSULTATIONon 01-22 VC COMP CONSULTATION Patient: DO HERI NAPIER Exam Date: 01/22/2022 : 1945 Gender:F Ordering : DR MARIALUISA AVITIA M.D. Admission #: [id number] Family : Order #: [id number] CLICK HERE TO VIEW EXAM RADIOLOGY REPORT [...] Avitia MD on 01/22/2022 at 14:56 Normal [facility] VC VENOUS REFLUX SHARLENE LMTon 0 01-22-2022 VC VENOUS REFLUX SHARLENE LMT Patient: KOLTON NAPIER Exam Date: 01/22/2022 : 1945 Gender:F Ordering : DR MARIALUISA AVITIA M.D. Admission #: [id number] Family : Order #: [id number] CLICK HERE TO VIEW EXAM RADIOLOGY REPORT [...] chronic thrombus visualized Compressibility: Normal Flow: Normal [place] Sewer: Dist/med calf 2.7mm with 0s. Mid/med calf [...] Flow: 1.2s of reflux in popliteal vein [place] Sewer: Dist/med calf 4.7mm with 0s reflux. Tech [...] Avitia MD on 01/22/2022 at 14:18 Normal [facility] OBSOLETEon 05-15-2019 OBSOLETE Refill (KAROL) KOLTON NAPIER ([id number]) 1945 F Date Time Provider Department 05/15/19 JAMES JOHNSON During your visit today, we recorded the following information about you: Maribel Jo Heat Treater Head II 05/16/2019 4:42 PM Signed Call from pharmacy requesting refill. Pending Prescriptions Disp Refills DILTIAZEM 30 MG TABLET 270 tablet 1 Sig: TAKE ONE TABLET BY MOUTH THREE TIMES A DAY FLORENCIA: Yes Patient last seen 05/30/18 Maribel Jo Heat Treater Head II Allergies As of Date: 05/15/2019 Noted [...] Status:Closed by JAMES JOHNSON MD on 05/20/19 [facility] ADANOVrios 05-30-2018 CNOV Office Visit (CARDMN ) KOLTON NAPIER ([id number]) 1945 F Date Time Provider Department 05/30/18 2:00 PM JAMES JOHNSON During your visit today, we recorded the following information about you: Pulse Blood pressure Weight Height 114/minute 140/78 73.9 kg 1.626 m James Johnson MD, MD 05/30/2018 5:53 PM Signed [facility] [place] [facility] Department of Cardiovascular Medicine SECTION OF CARDIAC PACING and ELECTROPHYSIOLOGY OUTPATIENT VISIT DATE May 30, 2018 OUTPATIENT VISIT TYPE NEW PRIMARY CARE PHYSICIAN: Shaheed De La Torre MD ([facility]) [address] [place] [address] IMPRESSION/PLAN: The patient is very pleasant female [...] ECG today: Sinus tachycardia at 114 bpm. ME 154 ms, QRS 86 ms, QTC 460 ms. FOLLOW UP: Return in about 4 months (around 09/27/2018). This note was created using computerized passenger elevator operator software and may therefore include some passenger elevator operator errors including errors in gender and inappropriate words or phrases. I reviewed old records, obtained relevant HPI and PMH from the pt, examined the patient and created the above report. James Johnson MD May 30, 2018 Note to: Shaheed De La Torre MD ([facility]) [address] [place] [address] James Johnson MD, MD 05/30/2018 3:19 PM Signed If symptoms not improving in 7-10 days on low dose diltiazem, call. Referring Provider: REFERRAL, NO(HIST) [[id number]] Allergies As of Date: 05/30/2018 Noted Allergy [...] by JAMES JOHNSON MD on 05/30/18 Normal [facility] ECG COMPLETE W INTERPRETATIO Non 05-30-2018 ECG COMPLETE W INTERPRETATION NAME : KOLTON NAPIER PID : [id number] : 1945 Gender : Female Race : ORD : [id number] Procedure Date : May 30 2018 13:36:13 Edit Date : May 31 2018 13:51:33 Diagnosis:SINUS TACHYCARDIA WITH PREMATURE ATRIAL COMPLEXES OTHERWISE NORMAL ECG Confirmed by MD YAN TAMANNA ([id number]) on 05/31/2018 1:51:26 PM Ventricular Rate : 114 BPM Atrial Rate : 114 BPM P-R Interval : 154 ms QRS Duration : 86 ms Q-T Interval : 334 ms QTC Calculation(Bezet) : 460 ms P [place] : 37 degrees R [place] : 30 degrees T [place] : 46 degrees Test Reason : Location : 314 : J14 Overread By : MD YAN TAMANNA Edited By : MD YAN TAMANNA Referred By : JAMES JOHNSON Acquired by : BHUMIKA SANCHEZ [facility] PROGRESSon 05-30-2018 PROGRESS HNO ID: [id number] Author: James Johnson MD Service: (none) Author Type: Physician Type: Progress Notes Filed: 05/30/2018 5:53 PM Note Text: [facility] [place] [facility] Department of Cardiovascular Medicine SECTION OF CARDIAC PACING and ELECTROPHYSIOLOGY OUTPATIENT VISIT DATE May 30, 2018 OUTPATIENT VISIT TYPE NEW PRIMARY CARE PHYSICIAN: Shaheed De La Torre MD ([facility]) [address] [place] [address] IMPRESSION/PLAN: The patient is very pleasant female [...] ECG today: Sinus tachycardia at 114 bpm. ME 154 ms, QRS 86 ms, QTC 460 ms. FOLLOW UP: Return in about 4 months (around 09/27/2018). This note was created using computerized passenger elevator operator software and may therefore include some passenger elevator operator errors including errors in gender and inappropriate words or phrases. I reviewed old records, obtained relevant HPI and PMH from the pt, examined the patient and created the above report. James Johnson MD May 30, 2018 Note to: Shaheed De La Torre MD ([facility]) [address] [place] [address] Normal [facility] Vital Signs Date Time Vital Sign Value Performing Clinician Faci lity 04-03-2024 09:18-0400 Body height 162.6 cm Shaheed De La Torre MD Work Phone: [facility] 04-03-2024 09:18-0400 Body mass index (BMI) [Ratio] 25.92 kg/m2 Shaheed De La Torre MD Work Phone: [facility] 04-03-2024 09:18-0400 Body temperature 95.7 [degF] Shaheed De La Torre MD Work Phone: [facility] 04-03-2024 09:18-0400 Body weight 68.49 kg Shaheed De La Torre MD Work Phone: [facility] 04-03-2024 09:18-0400 Diastolic blood pressure 80 mm[Hg] Shaheed De La Torre MD Work Phone: [facility] 04-03-2024 09:18-0400 Heart rate 86 /min Shaheed De La Torre MD Work Phone: [facility] 04-03-2024 09:18-0400 Respiratory rate 20 /min Shaheed De La Torre MD Work Phone: [facility] 04-03-2024 09:18-0400 SaO2% (BldA) [Mass fraction] 97 % Shaheed De La Torre MD Work Phone: [facility] 04-03-2024 09:18-0400 Systolic blood pressure 140 mm[Hg] Shaheed De La Torre MD Work Phone: [facility] 08-19-2023 14:36-0500 Body height 162.6 cm Shaheed De La Torre MD Work Phone: [facility] 08-19-2023 14:36-0500 Body mass index (BMI) [Ratio] 26.09 kg/m2 Shaheed De La Torre MD Work Phone: [facility] 08-19-2023 14:36-0500 Body temperature 98.1 [degF] Shaheed De La Torre MD Work Phone: [facility] 08-19-2023 14:36-0500 Body weight 68.95 kg Shaheed De La Torre MD Work Phone: [facility] 08-19-2023 14:36-0500 Diastolic blood pressure 70 mm[Hg] Shaheed De La Torre MD Work Phone: [facility] 08-19-2023 14:36-0500 Heart rate 71 /min Shaheed De La Torre MD Work Phone: [facility] 08-19-2023 14:36-0500 SaO2% (BldA) [Mass fraction] 98 % Shaheed De La Torre MD Work Phone: [facility] 08-19-2023 14:36-0500 Systolic blood pressure 108 mm[Hg] Shaheed De La Torre MD Work Phone: [facility] Healthcare Encounters Encounter Date Encounter Type Care Provider Facility Start: 06-29-2024 End: 06-29-2024 Emergency department patient visit SHAHEED DE LA TORRE [facility] Start: 06-26-2024 End: 06-26-2024 ambulatory EHAB [facility] Start: 06-12-2024 End: 06-12-2024 Refill Shaheed De La Torre MD Work Phone: [facility] Comment on above: MDD (major depressiv e disorder), recurrent episode, moderate ([facility]/HCC) Start: 05-30-2024 End: 05-30-2024 Clinisync Result Encounter Generic External Data Provider [facility] Unsolicited Start: 05-30-2024 End: 05-30-2024 Clinisync Result Encounter Generic External Data Provider [facility] External [facility] Unsolicited Start: 04-19-2024 End: 04-19-2024 Refill Shaheed De La Torre MD Work Phone: [facility] Comment on above: LAUREL (generalized anx iety disorder) ([facility]) Start: 04-03-2024 End: 04-03-2024 Bamboo flowsheet Shaheed [...] [facility] Start: 03-09-2024 End: 03-09-2024 Bamboo flowsheet Shaheed De La Torre MD Work Phone: [facility] Start: 03-09-2024 End: 03-09-2024 Office outpatient visit 25 minutes Shaheed De La Torre MD Work Phone: [facility] Comment on above: Pneumonia of both lo wer lobes due to infectious organism (Primary Dx); Mild intermittent asthma without complication ([facility]/HCC); Benign essential hypertension ([facility]) Start: 03-09-2024 End: 03-09-2024 ambulatory SHAHEED DE [...] Not Available Start: 08-23-2023 End: 08-23-2023 ambulatory AB [facility] Start: 08-19-2023 End: 08-19-2023 Office [...] DE LA TORRE Not Available Start: 08-19-2023 [facility] flowseli De La Torre MD Work Phone: [facility] Start: [facility]23 [facility] Work Phone: [facility] Start: 06-10-2023 End: 06-10-2023 ambulatory SHAHEED DE LA TORRE Not Available Start: 09-24-2022 End: 09-25-[address] NOAH VAUGHAN Facility:[facility] Start: 07-17-2022 End: 07-18-[address] SHAHEED [...] procedure 08/22/2024 1:15 PM EST Office Visit FRANCISCO JOHNSON [address] [place] [address] Shaheed De La Torre MD [address] [place] [id number] [facility] Start: 04-03-2024 End: 04-03-2024 Patient encounter procedure 04/03/2024 9:15 AM EDT Office Visit FRANCISCO JOHNSON [address] [place] [address] Shaheed De La Torre MD [address] [place] [id number] Arrived [facility] Comment on above: Arrived Start: 03-09-2024 End: 03-09-2024 Patient encounter procedure [facility] Comment on above: Arrived Start: 03-05-2024 Influenza vaccination Influenza Vacc ine (#1) [facility] Start: 08-19-2023 End: 08-19-2023 Patient encounter procedure 08/19/2023 2:30 PM EST Office Visit [facility] [address] [place] [address] Shaheed De La Torre MD [address] [place] [id number] Arrived [facility] Comment on above: Arrived Start: 08-19-2023 End: 08-19-2024 Basic metabolic 1998 panel - Serum or Plasma Basic metabolic panel Lab Routine Benign essential hypertension (CMS/HCC) Expected: 08/19/2023 (Approximate), Expires: 08/19/2024 [facility] Work Phone: Comment on above: Expected: 08/19/2023 (Approximate), Expires: 08/19/2024 Start: 08-19-2023 End: 08-19-2024 CBC W Auto Differential panel - Blood CBC and differential Lab Routine Encounter for long-term (current) use of medications Expected: 08/19/2023 (Approximate), Expires: 08/19/2024 [facility] Comment on above: Expected: 08/19/2023 (Approximate), Expires: 08/19/2024 Start: 08-19-2023 End: 08-19-2024 Hepatic function 2000 panel - Serum or Plasma Hepatic function panel Lab Routine Encounter for long-term (current) use of medications Expected: 08/19/2023 (Approximate), Expires: 08/19/2024 [facility] Comment on above: Expected: 08/19/2023 (Approximate), Expires: 08/19/2024 Start: 08-19-2023 End: 08-19-2024 Lipid 1996 panel - Serum or Plasma Lipid panel Lab Routine Dyslipidemia (CMS/HCC) Expected: 08/19/2023 (Approximate), Expires: 08/19/2024 [facility] Comment on above: Expected: 08/19/2023 (Approximate), Expires: 08/19/2024 Start: 1945 Medicare Annual Wellness (AWV) Medicare Annual Wellness (AWV) [facility] BLOOD CULTURE 1 BLOOD CULTURE 1 Lab Routine 02/28/2024 9:37 AM EDT [facility] BLOOD CULTURE 2 BLOOD CULTURE 2 Lab Routine 02/28/2024 9:42 AM EDT [facility] Immunizations Immunization Date Immunization Notes Care Provider Fa cility 04-02-2023 influenza virus vacc ine, unspecified formulation Generic Provider [facility] Payers Date Payer Category Payer Medicaid [employer] MEDICARE A DVANTAGE [id number] 2022 Medicare [employer] MEDICARE A DVANTAGE A[employer]NA MEDICARE REPLACEMENT [id number] 2022-Present [address] [place] [address] [id number] 1959 Medicare [id number] 1945 Unknown [id number] 1945 Unknown [id number] 2.16.840.1.646155.3.579.2.593 1945 Unknown [id number] 2.16.840.1.411688.3.579.2.593 1945 Unknown [id number] 2.16.840.1.503905.3.579.2.593 1945 Unknown [id number] 2.16.840.1.188752.3.579.2.593 1945 Unknown [id number] 2.16.840.1.441852.3.579.2.593 1945 Unknown [id number] 2.16.840.1.781896.3.579.2.593 1945 Unknown [id number] 2.16.840.1.948609.3.579.2.593 1945 Unknown [id number] 2.16.840.1.839956.3.579.2.593 1945 Unknown [id number] 2.16.840.1.716771.3.579.2.593 1945 Unknown [id number] 2.16.840.1.964077.3.579.2.593 1945 Unknown [id number] 2.16.840.1.415204.3.579.2.593 1945 Unknown [id number] 2.16.840.1.828523.3.579.2.593 1945 Unknown [id number] 2.16.840.1.825306.3.579.2.1259 1945 Unknown [id number] 2.16.840.1.492664.3.579.2.1259 1945 Unknown [id number] 1945 Unknown [id number] 1945 Unknown [id number] 1945 Unknown [id number] 1945 Unknown [id number] Social History Date Type Detail Facility Start: 06-10-2023 End: 08-19-2023 Tobacco smoking status NHIS Never smoked tobacco [facility] Start: 06-10-2023 End: 08-19-2023 Tobacco use and exposure Smokeless tobacco non-user [facility] Start: 06-10-2023 End: 04-03-2024 Alcohol intake Ex-drinker (finding) [facility] Start: 06-10-2023 End: 08-19-2023 History of [address] [facility] Start: 06-10-2023 End: 08-19-[address] [facility] Start: 06-10-2023 Alcohol Comment holiday [facility] Start: 1945 Sex Assigned At Not on file [facility] NEGATED: Highlighted rowStart: NINF History of tobacco use Passive smoker [facility] Clinical Notes 08-19-2023 to 06-26-2024 Shaheed De La Torre MD - 04/03/2024 10:00 AM Deep De La Torre MD - 04/03/2024 10:00 AM Deep De La Torre MD - 04/03/2024 9:15 AM Deep De La Torre MD - 03/09/2024 11:43 AM EDT Note Date & Type Note Facility 06-26-2024 Note [facility] Cardiology Clinic Note Chief Complaint: Patient here for 10 mo follow up mitral and aortic valves stenosis and hypertension. Echo was performed in Mar 2024. She denies chest pain, SOB, palpitations, and lightheadedness/syncope. Doing very well. HPI: Kolton Napier is a 78 y.o. female with hypertension, aortic valve stenosis, [...] Review of Systems Respiratory: Positive for cough. Gastrointestinal: Positive for constipation. All other systems reviewed and are negative. [...] disease Mother Coronary artery disease Brother Allergies Cefdinir and Penicillins Medications Current Outpatient Medications: ALPRAZolam (Xanax) 0.5 mg tablet, alprazolam 0.5 mg tablet, Disp: , Rfl: benzonatate (Tessalon) 200 mg capsule, 1 capsule every 8 (eight) hours., Disp: , Rfl: dilTIAZem (Cardizem) 60 mg immediate release tablet, TAKE 1 TABLET BY MOUTH EVERY MORNING, AT NOON AND AT BEDTIME, Disp: 270 tablet, Rfl: 3 FLUoxetine (PROzac) 20 mg tablet, 40 mg in the morning., Disp: , Rfl: loratadine (Claritin) 10 mg tablet, Take 10 mg by mouth in the morning., Disp: , Rfl: losartan-hydrochlorothiazide [...] tablet, in the morning., Disp: , Rfl: Trelegy Ellipta 100-62.5-25 mcg blister with device, , Disp: , Rfl: Last Recorded Vitals Ht 1.626 m (5' 4 ) Wt 68.5 kg (151 lb) BMI 25.92 kg/m??? Physical Examination: GENERAL: alert and oriented [...] her echocardiogram Eve Adams MD, MPH, FACC, [facility] (more content not included)... [facility] 06-26-2024 Note [facility] Cardiology Clinic Note Chief Complaint: Patient here for 1 year follow up mitral and aortic valves stenosis and hypertension. Echo was performed in Mar 2023. She denies chest pain, SOB, palpitations, and lightheadedness/syncope. Doing very well. HPI: Kolton Napier is a 78 y.o. female with hypertension, aortic valve stenosis, palpitations, and COPD seen in follow-up. Last seen by Dr. Adams in 06/2021. BP at home runs in the 120s/70-80s. She is doing well from a cardiac standpoint without concerns. She notes mild left ankle swelling, at times uncomfortable with ambulation. UPDATE 08/23/2023 Doing very well. No new cardiovascular complaints. Update 06/26/2024: The patient seems to be doing well from a cardiac standpoint She had a recent colonoscopy and has not felt well since; she states that she feels nauseous and not right. She has not contacted her GI specialist. Pertinently, she denies exertional chest pain, shortness of breath, palpitations, lightheadedness or dizziness Cardiology ROS: Review of Systems Respiratory: Positive for cough. All other systems reviewed and are negative. Past Medical History She has a past medical history of COPD (chronic obstructive pulmonary disease) ([facility]), Heart murmur, Heart valve disease, Hypertension, [...] disease Mother Coronary artery disease Brother Allergies Cefdinir and Penicillins Medications Current Outpatient Medications: ALPRAZolam (Xanax) 0.5 mg tablet, alprazolam 0.5 mg tablet, Disp: , Rfl: benzonatate (Tessalon) 200 mg capsule, 1 capsule every 8 (eight) hours., Disp: , Rfl: dilTIAZem (Cardizem) 60 mg immediate release tablet, TAKE 1 TABLET BY MOUTH EVERY MORNING, AT NOON AND AT BEDTIME, Disp: 270 tablet, Rfl: 3 FLUoxetine (PROzac) 20 mg tablet, 40 mg in the morning., Disp: , Rfl: loratadine (Claritin) 10 mg tablet, Take 10 mg by mouth in the morning., Disp: , Rfl: losartan-hydrochlorothiazide [...] tablet, in the morning., Disp: , Rfl: Trelegy Ellipta 100-62.5-25 mcg blister with device, , Disp: , Rfl: Last Recorded Vitals BP 108/68 (BP Location: Left arm, Patient Position: Sitting) Pulse 77 Ht 1.626 m (5' 4 ) Wt 68.5 kg (151 lb) SpO2 96% BMI 25.92 kg/m??? Physical Examination: GENERAL: alert and oriented [...] aortic valve stenosis 6. Normal right-sided pressures Echocardiogram 03/2024: Global left ventricular systolic function is hyperdynamic; visually estimated ejection fraction 65 to 70% Normal right ventricular size and systolic function Normal diastolic function The left atrium is mildly dilated No significant valvular abnormalities (aortic valve peak velocity 1.76 m/s, peak gradient 12.43 mmHg, mean gradient 6.71 mmHg) Assessment: 1. Essential hypertension 2. Intermittent palpitations 3. Tachycardia/paroxysmal supraventricular tachycardia sinus - likely exacerbated by underlying lung disorder and inhaler therapy R00.0: Tachycardia, unspecified 4. Heart murmur R01.1: Cardiac murmur, unspecified 5. Dyspnea on exertion - Stable - attributed to COPD, inhalers hel (more content not included)... [facility] 04-03-2024 History of Present illness Narrative Associated [...] PRN. Start PT. documented in this encounter [facility] 03-09-2024 History of Present illness Narrative Associated [...] 78 y.o. female who presents for Follow-up ([facility] f/up). Hospital follow up from 02/27-03/01 for [...] with treatment. Monitor. documented in this encounter [facility] 08-23-2023 Note [facility] Cardiology Clinic Note Chief Complaint: Patient [...] following her echocardiogram Eve Adams MD, MPH, [facility], [facility], [facility] Interventional Cardiology Pager Email: [email or web address] 08-19-2023 History of Present illness Narrative [...] Hepatic function panel documented in this encounter [facility] Evaluation note Diagnosis Benign essential hypertension (CMS/HCC)- [...] mild (HCC) (CMS/HCC) documented in this encounter [facility] HealthcareEvaluation note* Diagnosis MDD (major depressive disorder), [...] mild (HCC) (CMS/HCC) LAUREL (generalized anxiety disorder) ([facility]/HCC) Generalized anxiety disorder Lumbosacral spinal stenosis Viral [...] asthma without complication (CMS/HCC) Benign essential hypertension ([facility]/HCC) Essential hypertension, benign documented in this encounter [...] section and content) DATE CREATED AUTHOR 05/20/2019 [facility] DATE CREATED AUTHOR AUTHOR'S ORGANIZ ATION 09/27/2022 [facility] pital DATE CREATED AUTHOR AUTHOR'S ORGANIZ ATION 04/03/[address] [facility] dical [facility] DATE CREATED AUTHOR AUTHOR'S ORGANIZ ATION 06/28/2024 [facility] DATE CREATED AUTHOR AUTHOR'S ORGANIZ ATION 06/30/2024 [facility] Care Teams (unrecognized sec tion and content) Shirring Tender Relationship Specialty Start Date End Date Shaheed De La Torre MD [address] [place] [phone] PCP - General Family Medicine 08/19/23 Shirring Tender Relationship Specialty Start Date End Date Shaheed De La Torre MD [address] [place] [phone] PCP - General Family Medicine 08/19/23 Shirring Tender Relationship Specialty Start Date End Date Shaheed De La Torre MD [address] [place] [phone] PCP - General Family Medicine 08/19/23 Shirring Tender Relationship Specialty Start Date End Date Shaheed De La Torre MD [address] [place] [phone] PCP - General Family Medicine 08/19/23 Shirring Tender Relationship Specialty Start Date End Date Shaheed De La Torre MD [address] [place] [phone] PCP - General Family Medicine 08/19/23 Shirring Tender Relationship Specialty Start Date End Date Shaheed De La Torre MD [address] [place] [phone] PCP - General Family Medicine 08/19/23 Shirring Tender Relationship Specialty Start Date End Date Shaheed De La Torre MD [address] [place] [address] PCP - General Family Medicine 08/19/23 Reason [...] BE BASED ON THE PRIMARY CLINICAL RECORDS. [facility]. provides no warranty or guarantee of the accuracy or completeness of information in this document.
--- NOTE | 2024-07-02 08:53 | ED_ITS ---
HPI HPI - General Adult General Chief complaint: Abdominal Pain Stated complaint: constipation Time Seen by Provider: 07/02/24 07:25 Source: patient Mode of arrival: ambulance Limitations: no limitations History of Present Illness HPI narrative: This patient comes by ambulance from home. She was here recently for nonspecific perineum type pain. Rectal examination done by myself that time she had brown stool. An x-ray showed large amount of rectal stool Pillard she had some results from enema here but they preferred to go home and take some magnesium citrate. They did that the other day and had some results. She returns today saying she is still sore down there. When asked to be specific she says it is in the rectal area. She has had a colonoscopy that was normal recently. They have not seen any blood. She does definitely have short-term memory loss confirmed by the and several family members. The is really having a problem taking care of her. Today she was downstairs on the floor crying and uncontrollable which is why he called the squad. Related Data Home Medications ?Medication ?Instructions ?Recorded ?Confirmed albuterol sulfate 90 mcg/actuation 2 inh inhalation Q6H PRN shortness 01/14/23 07/02/24 aerosol inhaler of breath or wheezing cyclobenzaprine 10 mg tablet 10 mg PO Q8H PRN muscle spasm 01/14/23 07/02/24 fluticasone fur. 100 mcg-umeclid 1 inh inhalation DAILY 01/14/23 07/02/24 62.5 mcg-vilant 25 mcg inhalat.powder (Trelegy Ellipta) losartan 100 1 tab PO DAILY 01/14/23 07/02/24 mg-hydrochlorothiazide 25 mg tablet (Hyzaar) omeprazole 40 mg capsule,delayed 40 mg PO DAILY 01/14/23 07/02/24 release rosuvastatin 10 mg tablet (Crestor) 10 mg PO DAILY 01/14/23 07/02/24 alprazolam 0.5 mg tablet 0.25 mg PO TID PRN anxiety 02/28/24 07/02/24 diltiazem HCl 60 mg tablet 60 mg PO TID 02/28/24 07/02/24 fluoxetine 40 mg capsule 40 mg PO DAILY 02/28/24 07/02/24 loratadine 10 mg tablet (Loradamed) 10 mg PO DAILY 02/28/24 07/02/24 potassium chloride 20 mEq 20 meq PO BID 02/28/24 07/02/24 tablet,extended release Previous Rx's ?Medication ?Instructions ?Recorded dextromethorphan-guaifenesin 30 1 tab PO DAILY #10 tabs 03/01/24 mg-600 mg tablet extended [id number] hr (Mucinex DM) ipratropium bromide 0.02 % 2.5 ml inhalation Q8H PRN 03/01/24 solution for inhalation shortness of breath or wheezing #75 mL levalbuterol HCl 1.25 mg/3 mL 1.25 mg (3 mL) inhalation Q8H PRN 03/01/24 solution for nebulization shortness of breath or wheezing #75 mL levofloxacin 500 mg tablet 500 mg PO DAILY 7 days #7 tabs 03/01/24 prednisone 20 mg tablet 20 mg PO BID 7 days #14 tabs 03/01/24 Allergies Allergy/AdvReac Type Severity Reaction Status Date / Time No Known Drug Allergies Allergy Verified 07/02/24 08:19 Opioid HPI Opioid Management Most Recent Opioid Data: Last ORT Total Score 0 02/28/24 10:45 02/28/24 Last ORT Risk Category Low Risk 02/28/24 10:45 02/28/24 [facility] Medical History (Updated 07/02/24 @ 10:05 by Michael Gaston MD) Hyperlipemia ?E78.5 - Hyperlipidemia, unspecified (ICD-10) GERD (gastroesophageal reflux disease) ?K21.9 - Gastro-esophageal reflux disease without esophagitis (ICD-10) Anxiety ?F41.9 - Anxiety disorder, unspecified (ICD-10) Arthritis ?M19.90 - Unspecified osteoarthritis, unspecified site (ICD-10) Anemia ?D64.9 - Anemia, unspecified (ICD-10) Asthma ?J45.909 - Unspecified asthma, uncomplicated (ICD-10) Diarrhea ?R19.7 - Diarrhea, unspecified (ICD-10) Constipation ?K59.00 - Constipation, unspecified (ICD-10) Tachycardia ?R00.0 - Tachycardia, unspecified (ICD-10) Palpitations ?R00.2 - Palpitations (ICD-10) Hypertension ?I10 - Essential (primary) hypertension (ICD-10) Colon polyp ?K63.5 - Polyp of colon (ICD-10) Surgical History History of bladder surgery ?Z98.890 - Other specified postprocedural states (ICD-10) History of colonoscopy ?Z98.890 - Other specified postprocedural states (ICD-10) History of esophagogastroduodenoscopy (EGD) ?Z98.890 - Other specified postprocedural states (ICD-10) History of hysterectomy ?Z90.710 - Acquired absence of both cervix and uterus (ICD-10) History of cholecystectomy ?Z90.49 - Acquired absence of other specified parts of digestive tract (ICD- 10) History of appendectomy ?Z90.49 - Acquired absence of other specified parts of digestive tract (ICD- 10) Family History Other Family history of Alzheimer's disease Family history of breast cancer Family history of gastric cancer Family history of heart disease Family history of stroke Social History Within the past year, how often did you have a drink containing alcohol: monthly or less Smoking status: Never smoker Non-prescribed substance use: denies use Highest level of school completed/degree received: high school graduate Little interest or pleasure in doing things: not at all Feeling down, depressed, or hopeless: not at all Exam Narrative Exam Narrative: Awake alert highly anxious very very nonspecific with exactly what her symptoms are and what exactly hurts. She is communicating with the . But he confirms that she has extreme short-term memory loss. She moves about comfortably with no evidence of focal neurological deficits or symptoms. In the presence of a nurse we did examine her perineum and the perirectal area. The whole area is diffusely erythematous with some mild satellite lesions consistent with a candidiasis type of problem. There is no tears fissures or fistulas. No external hemorrhoids. No evidence of prolapse uterus or bladder. No extensive cellulitis although this appears to be local skin irritation from moisture and hygiene problem. Her heart and lung examination essentially normal her lungs are clear no wheeze rales or rhonchi heart sounds are normal. Skin and integument are normal. Constitutional Vital Signs, click to edit/add: Last Vital Signs Temp 98.6 F 07/02/24 07:20 Pulse 81 07/02/24 07:20 Resp 18 07/02/24 07:20 BP 160/88 H 07/02/24 07:20 Pulse Ox 100 07/02/24 07:20 O2 Del Method Room Air 07/02/24 07:20 Course Vital Signs Vital signs: Vital Signs Temperature 98.6 F 07/02/24 07:20 Pulse Rate 81 07/02/24 07:20 Respiratory Rate 18 07/02/24 07:20 Blood Pressure 160/88 H 07/02/24 07:20 Pulse Oximetry 100 07/02/24 07:20 Oxygen Delivery Method Room Air 07/02/24 07:20 Temperature 98.6 F 07/02/24 07:20 Pulse Rate 81 07/02/24 07:20 Respiratory Rate 18 07/02/24 07:20 Blood Pressure 160/88 H 07/02/24 07:20 Pulse Oximetry 100 07/02/24 07:20 Oxygen Delivery Method Room Air 07/02/24 07:20 Medical Decision Making MDM Narrative Medical decision making narrative: I spoke privately with the and he is increasingly frustrated with her short-term memory loss and behavioral problems at home. He does not feel he is able to take care of her and would like her admitted for evaluation for assisted living or skilled nursing or some type of assistance. She is not able to provide the hygiene to get this perineum problem cleared up. I did speak with the on- call hospitalist who will admit her. Discharge Plan Discharge Chief Complaint: Abdominal Pain Clinical Impression: Unable to care for self Patient Disposition: Admitted as Observation Time of Disposition Decision: 10:05 Prescriptions / Home Meds: No Action albuterol sulfate 90 mcg/actuation HFA aerosol inhaler 2 inh inhalation Q6H PRN (Reason: shortness of breath or wheezing) cyclobenzaprine 10 mg tablet 10 mg PO Q8H PRN (Reason: muscle spasm) Trelegy Ellipta 100-62.5-25 mcg blister with device 1 inh inhalation DAILY losartan-hydrochlorothiazide [Hyzaar] 100-25 mg tablet 1 tab PO DAILY omeprazole 40 mg capsule,delayed release(DR/EC) 40 mg PO DAILY rosuvastatin [Crestor] 10 mg tablet 10 mg PO DAILY potassium chloride 20 mEq tablet extended release 20 meq PO BID alprazolam 0.5 mg tablet 0.25 mg PO TID PRN (Reason: anxiety) diltiazem HCl 60 mg tablet 60 mg PO TID loratadine [Loradamed] 10 mg tablet 10 mg PO DAILY fluoxetine 40 mg capsule 40 mg PO DAILY ipratropium bromide 0.02 % solution 2.5 ml inhalation Q8H PRN (Reason: shortness of breath or wheezing) Qty: 75 0RF levalbuterol HCl 1.25 mg/3 mL solution for nebulization 1.25 mg inhalation Q8H PRN (Reason: shortness of breath or wheezing) Qty: 75 0RF prednisone 20 mg tablet 20 mg PO BID 7 Days Qty: 14 0RF Mucinex DM 30-600 mg tablet extended release 12 hr 1 tab PO DAILY Qty: 10 0RF levofloxacin 500 mg tablet 500 mg PO DAILY 7 Days Qty: 7 0RF Print Language: Vietnamese Referrals: Shaheed Crow MD [Primary Care Provider] - 1 week
[2024-07-02 09:17] LABS: Bilirubin Urine NEGATIVE (NEGATIVE); Blood Urine NEGATIVE (NEGATIVE); Clarity Urine CLEAR (CLEAR); Color Urine YELLOW (YELLOW); Glucose Urine UA NEGATIVE (NEGATIVE); Ketones Urine 15 mg/dL (NEGATIVE); Leukocyte Esterase Urine NEGATIVE (NEGATIVE); Nitrite Urine NEGATIVE (NEGATIVE); Protein Urine 30 mg/dL (NEG/TRACE); Specific Gravity Urine >=1.030 (1.005-1.025); pH Urine 6.5 (5.0-9.0)
[2024-07-02 09:45] LABS: Bacteria Urine MODERATE #/HPF (NONE SEEN); Mucus Urine MODERATE (NONE SEEN); RBC Urine NONE SEEN #/HPF (0-2); Squamous Epithelial Cell Urine FEW #/LPF (NONE/RARE); WBC Urine NONE SEEN #/HPF (NONE SEEN)
[2024-07-02 09:46] LABS: Cast Seen? NONE SEEN #/LPF (NONE SEEN); Crystals Seen? None Seen #/HPF (None Seen); Urine Culture Indicated YES
--- OUTSIDE RECORDS SUMMARY | 2024-07-02 11:51 | XMS_ITS | CCD ---
Author Organization [facility] InformFormerly [facility] Care Team Providers Care Cigar Head Perforator Name Role Phone ADORE, DR MARIALUISA Anguiano [...] DR MARIALUISA Anguiano Admitting Unavailable ZIEBER, DR NOHA Avery Consulting Unavailable WEST, DR MARIALUISA Anguiano [...] Unavailable NADERER, DR SHAHEED Thomas Admitting Unavailable HANOVER PARK, DR MARIALUISA Anguiano Consulting Unavailable WIL, DR SHAHEED Thomas Primary Care Unavailable [place]ARK, DR MARIALUISA Anguiano Attending Unavailable [place], DR MARIALUISA Anguiano Admitting Unavailable [place], DR MARIALUISA Anguiano Consulting Unavailable NADCHRISTIANO, DR SHAHEED Thomas Primary Care Unavailable [place], DR MARIALUISA Anguiano Attending Unavailable WEST, DR MARIALUISA Anguiano Admitting Unavailable [place], DR MARIALUISA Anguiano Consulting Unavailable NADCHRISTIANO, DR SHAHEED Thomas Primary Care Unavailable [place], DR MARIALUISA Anguiano Attending Unavailable WEST, DR MARIALUISA Anguiano Admitting Unavailable Shaheed De La Torre MD Primary Care Provider [phone] WIL, SHAHEED Attending Unavailable NADERER, SHAHEED Attending Unavailable NADERER, SHAHEED Attending Unavailable NADERER, SHAHEED Attending Unavailable NADERER, SHAHEED Attending Unavailable NADERER, SHAHEED Attending Unavailable ELTAHAWY, EVE Attending Unavailable ELTAHAWAlida, EVE Attending Unavailable NADCHRISTIANO, SHAHEED Primary Care Unavailable JENA MAS Attending Unavailable Allergies Allergy Classification Reported Allergen(s) Allergy Type Date of Onset Reaction(s) Facility (1 source) Albuterol Drug Allergy [facility] Repository (1 source) Penicillin Drug Allergy [facility] (13 sources) Albuterol Drug Allergy 9 Pal[facility]ations [facility] (13 sources) Cephalosporins (Antibiotic) Drug Allergy 3 Diarrhea, GI intolerance [facility] (15 sources) Penicillins; Translations: [PENICILLINS] Drug Allergy 8 GI intolerance [facility] (14 sources) cefdinir; Translations: [CEFDINIR] Drug Allergy 1 Diarrhea, GI intolerance [facility] (2 sources) Albuterol; Translations: [ALBUTEROL SULFATE] Drug Allergy 9 [facility] Repository Medications Current Medications Medication Drug Class(es) Dates Sig (Normalized) Sig (Original) ALPRAZolam 0.5 mg oral tablet (14 sources) Benzodiazepine Start: 02-17-2024 End: 05-19-2024 take 1 tablet by mouth three times daily as needed for anxiety ALPRAZolam (Xanax) 0.5 MG tablet Indications: LAUREL (generalized anxiety disorder) ([facility]) Take 1 tablet (0.5 mg) by [...] sources) Anticholinergic, Corticosteroid, beta2-Adrenergic Agonist Start: 01-14-2023 Mtyyqrqefse-Mzxuddyrj-Oyntjs (Trelegy Ellipta) 100-62.5-25 MCG/ACT aerosol powder 01/14/2023 Active End: 08-19-2023 take 1 puff(s) by inhalation in the morning Stctwvsxdou-Gfncxdcva-Hmvwua (Trelegy Ellipta) 100-62.5-25 MCG/ACT aerosol powder Inhale [...] (13 sources) Polyene Antifungal nystatin (Myc ostatin) 059351 UNIT/GM powder Apply 1 application topically in [...] tablet 1 02/17/2024 Active polyethylene glycol 3350 90026 mg powder for oral solution (10 sources) [...] 06-10-2023 Chronic Other aftercare (1 source) Other press tender long goods (current) drug therapy; Translations: [OTH CORRECTION CURRENT [...] (8 sources) Patient encounter status; Translations: [Other mcfp (current) drug therapy] Onset: 4 08-19-2023 Episodic Other aftercare (6 sources) Long-term current use of drug therapy; Translations: [Other press tender long goods (current) drug therapy] Onset: 4 08-19-2023 Episodic [...] 06-29-20 ABSOLUTE BASOPHIL 0.0 X10E9/L Normal 0.0-0.2 [facility] Comment on above: Performed By: #### C EVELIN, 3039-3, CMP #### [facility] ([id number]) [address] [place] [address] 89050 ABSOLUTE NEUTROPHIL 4.9 X10E9/L Normal 1.5-6.6 [facility] Comment on above: Performed By: #### Harika WATERS, 0-3, CMP #### [facility] ([id number]) [address] [place] [address] 31584 Basophils/100 WBC (Bld) 0.5 % Normal [facility] Comment on above: Performed By: #### Harika WATERS, 0-3, CMP #### [facility] ([id number]) [address] [place] [address] 69528 Eosinophils (Bld) [#/Vol] 0.1 10*3/uL Normal 0.0-0.4 [facility] Comment on above: Performed By: #### Harika WATERS, 3039-09, CMP #### [facility] ([id number]) [address] [place] [address] 10694 Eosinophils/100 WBC (Bld) 0.7 % Normal [facility] Comment on above: Performed By: #### Harika WATERS, 3039-09, CMP #### [facility] ([id number]) [address] [place] [address] 58550 Erythrocyte distribution width (RBC) [Ratio] 12.6 % Normal 11.5-15.0 [facility] Comment on above: Performed By: #### Harika WATERS, 3039-09, CMP #### [facility] ([id number]) [address] [place] [address] 26326 Hematocrit (Bld) [Volume fraction] 40.9 % Normal 35-47 [facility] Comment on above: Performed By: #### Harika WATERS, 3039-09, CMP #### [facility] ([id number]) [address] [place] [address] 69670 Hemoglobin (Bld) [Mass/Vol] 13.9 g/dL Normal 11.7-15.5 [facility] Comment on above: Performed By: #### Harika WATERS, 3039-09, CMP #### [facility] ([id number]) [address] [place] [address] 18862 Lymphocytes (Bld) [#/Vol] 1.7 10*3/uL Normal 1.0-3.5 [facility] Comment on above: Performed By: #### Harika WATERS, 3039-09, CMP #### [facility] ([id number]) [address] [place] [address] 91492 Lymphocytes/100 WBC (Bld) 23.6 % Normal [facility] Comment on above: Performed By: #### Harika WATERS, 3039-09, CMP #### [facility] ([id number]) [address] [place] [address] 50370 MCH (RBC) [Entitic mass] 31.8 pg Normal 27-34 [facility] Comment on above: Performed By: #### Harika WATERS, 3039-09, CMP #### [facility] ([id number]) [address] [place] [address] 42307 MCHC (RBC) [Mass/Vol] 34.1 g/dL Normal 32-36 [facility] Comment on above: Performed By: #### Harika WATERS, 3039-09, CMP #### [facility] ([id number]) [address] [place] [address] 27382 MCV (RBC) [Entitic vol] 93 fL Normal 80-100 [facility] Comment on above: Performed By: #### Harika WATERS, 3039-09, CMP #### [facility] ([id number]) [address] [place] [address] 57504 Monocytes (Bld) [#/Vol] 0.5 10*3/uL Normal 0-0.9 [facility] Comment on above: Performed By: #### Harika WATERS, 3039-09, CMP #### [facility] ([id number]) [address] [place] [address] 65608 Monocytes/100 WBC (Bld) 7.4 % Normal [facility] Comment on above: Performed By: #### Harika WATERS, 3039-09, CMP #### [facility] ([id number]) [address] [place] [address] 94561 Neutrophils/100 WBC (Bld) 67.8 % Normal [facility] Comment on above: Performed By: #### Harika WATERS, 3, CMP #### [facility] ([id number]) [address] [place] [address] 80623 Platelet mean volume (Bld) [Entitic vol] 8.0 fL Normal 7-12 [facility] Comment on above: Performed By: #### Harika WATERS, 0-3, CMP #### [facility] ([id number]) [address] [place] [address] 03039 Platelets (Bld) [#/Vol] 258 10*3/uL Normal 150-450 [facility] Comment on above: Performed By: #### Harika WATERS, 3039-3, CMP #### [facility] ([id number]) [address] [place] [address] 05230 RBC COUNT 4.38 X10E12/L Normal 3.80-5.20 [facility] Comment on above: Performed By: #### Harika WATERS, 3, CMP #### [facility] ([id number]) [address] [place] [address] 19329 WBC (Bld) [#/Vol] 7.3 10*3/uL Normal 4.0-11.0 [facility] Comment on above: Performed By: #### Harika WATERS, 3039-3, CMP #### [facility] ([id number]) [address] [place] [address] 12628 COMPREHENSIVE METABOLIC PANE [facility] 06-29-2024 Albumin [Mass/Vol] 4.7 g/dL Normal 3.2-5.3 [facility] Comment on above: Performed By: #### Harika WATERS, 0-3, CMP #### [facility] ([id number]) [address] [place] [address] 04575 ALP [Catalytic activity/Vol] 66 U/L Normal 39-130 [facility] Comment on above: Performed By: #### Harika WATERS, 0-3, CMP #### [facility] ([id number]) [address] [place] [address] 72804 ALT [Catalytic activity/Vol] 16 U/L Normal 0-31 [facility] Comment on above: Performed By: #### Harika WATERS, 3039-09, CMP #### [facility] ([id number]) [address] [place] [address] 93933 Anion gap [Moles/Vol] 10 mmol/L Normal 5-15 [facility] Comment on above: Performed By: #### Harika WATERS, 3039-09, CMP #### [facility] ([id number]) [address] [place] [address] 46204 AST [Catalytic activity/Vol] 25 U/L Normal 0-41 [facility] Comment on above: Performed By: #### Harika WATERS, 3039-09, CMP #### [facility] ([id number]) [address] [place] [address] 89025 Bilirubin [Mass/Vol] 0.4 mg/dL Normal 0.3-1.2 [facility] Comment on above: Performed By: #### Harika WATERS, 3039-09, CMP #### [facility] ([id number]) [address] [place] [address] 82515 Calcium [Mass/Vol] 10.0 mg/dL Normal 8.5-10.5 [facility] Comment on above: Performed By: #### Harika WATERS, 3039-09, CMP #### [facility] ([id number]) [address] [place] [address] [place] [address] Chloride [Moles/Vol] 101 mmol/L Normal 98-109 [facility] Comment on above: Performed By: #### Harika WATERS, 3039-09, CMP #### [facility] ([id number]) [address] [place] [address] 44783 CO2 [Moles/Vol] 23 mmol/L Normal 22-32 [facility] Comment on above: Performed By: #### Harika WATERS, 0, CMP #### [facility] ([id number]) [address] [place] [address] 20532 Creatinine [Mass/Vol] 0.74 mg/dL Normal 0.40-1.00 [facility] Comment on above: Result Comment: METH OD TRACEABLE TO IDMS STANDARD Performed By: #### C EVELIN, 3039-09, CMP #### [facility] ([id number]) [address] [place] [address] 51363 GFR/1.73 sq M.predicted among non-blacks MDRD (S/P/Bld) [Vol rate/Area] 83 mL/min/{1.73_m2} Normal >59 [facility] Comment on above: Result Comment: Reported eGFR is based on the CKD-EPI 2020 equation that does not use a race coefficient. Performed By: #### C EVELIN, 3039-09, CMP #### [facility] ([id number]) [address] [place] [address] 11863 Glucose [Mass/Vol] 110 mg/dL High 65-99 [facility] Comment on above: Performed By: #### C EVELIN, 3039-09, CMP #### [facility] ([id number]) [address] [place] [address] 03732 Potassium [Moles/Vol] 4.0 mmol/L Normal 3.5-5.0 [facility] Comment on above: Performed By: #### C EVELIN, 3039-09, CMP #### [facility] ([id number]) [address] [place] [address] 42499 Protein [Mass/Vol] 7.9 g/dL Normal 6.0-8.0 [facility] Comment on above: Performed By: #### C BCA, 3039-09, CMP #### [facility] ([id number]) [address] [place] [address] 43030 Sodium [Moles/Vol] 134 mmol/L Normal 134-146 [facility] Comment on above: Performed By: #### C BCA, 3040-3, CMP #### [facility] ([id number]) [address] [place] [address] Urea nitrogen [Mass/Vol] 14 mg/dL Normal 5-27 [facility] Comment on above: Performed By: #### C BCA, 3040-3, CMP #### [facility] ([id number]) [address] [place] [address] CT ABDOMEN AND PELVIS W CONT on [...] Jerry MD on 06/29/2024 10:28 AM Normal [facility] LIPASEon 06-29-2024 Lipase [Catalytic activity/Vol] 35 U/L Normal 17-40 [facility] Comment on above: Performed By: #### C BCA, 3040-3, CMP #### [facility] ([id number]) [address] [place] [address], [place] [address] Office Visiton 06-26-2024 Follow-up visit [id number] Pankaj Napier 1945 F Date Provider Department Center 06/26/[address] [place] [address] [facility] Family History Problem Relation Age of Onset Coronary artery disease Mother Coronary artery disease Brother Family Status - Relation Status Age at Mother Brother Level of Service:00424 [place] OFFICE/OUTPATIENT ESTABLISHED LOW MDM 20 MIN Normal [facility] ALL HEMOGLOBINon 05-30-2024 Hemoglobin (Bld) [Mass/Vol] 13.1 g/dL 12.0 - 16.0 g/dL [facility] Office Visiton 08-23-2023 Follow-up visit [id number] Pankaj Napier 1945 F Date Provider Department [facility]2023 [facility] Family History Problem Relation Age of Onset Coronary artery disease Mother Coronary artery disease Brother Family Status - Relation Status Age at Mother Brother Level of Service:39265 [place] OFFICE/OUTPATIENT ESTABLISHED LOW MDM 20 MIN Normal [facility] MG MAMM SCREEN 3D SHARLENE CADon 09-24-2022 MG MAMM SCREEN 3D SHARLENE CAD Patient: KOLTON NAPIERNeal Exam Date: 09/24/2022 : 1945 Gender:F Ordering : DR SHAHEED DE LA TORRE . Admission #: [id number] Family : Order #: [id number] CLICK HERE TO VIEW EXAM RADIOLOGY REPORT [...] age 80. LOCATION: [facility] BREAST COMPOSITION: Scattered areas fibroglandular [...] at 07:08 Normal [facility] CBC AUTO DIFFon 07-17-2022 BASO # 0.1 103/ul Normal 0.0-0.1 [facility] Comment on above: Performed By: #### C BC ####[facility] [address] [place] [address]Dr. Fidencio Walker Basophils/100 WBC (Bld) 0.8 % Normal 0.2-2.0 [facility] Comment on above: Performed By: #### C BC ####[facility] [address]ots[address] [place] [address]42[address]DrNeal Walker EO # 0.4 103/ul Normal 0.0-0.7 [facility] Comment on above: Performed By: #### C BC ####[facility] Ikel[address]izjke[address] [place] 1042111DrNeal Walker Eosinophils/100 WBC (Bld) 4.7 % Normal 0.9-7.0 [facility] Comment on above: Performed By: #### C BC ####[facility] Srpc[address]ryuxf16[address] [place] [address]42[address]DrNeal Walker Erythrocyte distribution width (RBC) [Ratio] 13.0 % Normal 11.0-15.0 [facility] Comment on above: Performed By: #### C BC ####[facility] Jizzgv[address]cy[address] [place] [address]Dr. Fidencio Walker Hematocrit (Bld) [Volume fraction] 43.0 % Normal 36.0-48.0 [facility] Comment on above: Performed By: #### C BC ####[facility] X[address]xy[address] [place] [address]Dr. Fidencio Walker Hemoglobin (Bld) [Mass/Vol] 13.1 g/dL Normal 12.0-16.0 [facility] Comment on above: Performed By: #### C BC ####[facility] [address] [place], [place] [address]Dr. Fidencio Walker IG # 0.02 10e3/ul Normal 0.00-0.03 [facility] Comment on above: Performed By: #### C BC ####[facility] L[address] [place], [place] [address]Dr. Fidencio Walker IG % 0.3 % Normal 0.0-0.5 [facility] Comment on above: Performed By: #### C BC ####[facility] [address] [place], [place] [address]DrNeal Fidencio Walker LYMPH # 2.2 103/ul Normal 1.2-3.8 [facility] Comment on above: Performed By: #### C BC ####[facility] Ontgbz[address]zi[address] [place], [place] [address]DrNeal Galileanickolas Walker Lymphocytes/100 WBC (Bld) 28.7 % Normal 20.5-60.0 [facility] Comment on above: Performed By: #### C BC ####[facility] Cy[address] [place], [place] [address]DrNeal Galileanickolas Walekr MANUAL DIFF REQ NO Normal [facility] Comment on above: Performed By: #### C BC ####[facility] Ed[address]lmxome[address] [place] [address]Dr. Fidencio Walker MCH (RBC) [Entitic mass] 30.9 pg Normal 26.7-34.0 [facility] Comment on above: Performed By: #### C BC ####[facility] Sl[address]awopdr[address] [place] [address]Dr. Fidencio Aaron MCHC (RBC) [Mass/Vol] 30.5 g/dL Normal 29.9-35.2 [facility] Comment on above: Performed By: #### C BC ####[facility] [address]cfc[address]wtkk[address] [place] [address]DrNeal Walker MCV (RBC) [Entitic vol] 101.4 fL Critically high 81.0-99.0 [facility] Comment on above: Performed By: #### C BC ####[facility] R[address] [place], [place] [address]DrNeal Walker MONO # 0.5 103/ul Normal 0.3-0.8 [facility] Comment on above: Performed By: #### C BC ####[facility] Agkrvfjeua[address] [place], [place] [address]Dr. Fidencio Walker Monocytes/100 WBC (Bld) 7.1 % Normal 1.7-12.0 [facility] Comment on above: Performed By: #### C BC ####[facility] Z[address]ty[address] [place], [place] [address]Dr. Fidencio Walker NEUT # 4.4 103/ul Normal 1.4-6.5 [facility] Comment on above: Performed By: #### C BC ####[facility] Ajfpviollr[address] [place], [place] [address]Dr. Fidencio Walker Neutrophils/100 WBC (Bld) 58.4 % Normal 43.0-75.0 [facility] Comment on above: Performed By: #### C BC ####[facility] Tox[address]ch[address] [place], [place] [address]DrNeal Walker Platelet mean volume (Bld) [Entitic vol] 10.8 fL Normal 9.5-13.5 [facility] Comment on above: Performed By: #### C BC ####[facility] [address]cl[address] [place], [place] [address]DrNeal Walker PLT 200 103/ul Normal 150-450 [facility] Comment on above: Performed By: #### C BC ####[facility] [address] [place], [place] [address]Cl. Fidencio Walker RBC 4.24 106/ul Normal 4.20-5.40 [facility] Comment on above: Performed By: #### C BC ####[facility] Mqgsrtrq[address] [place], [place] [address]Xd. Fidencio Walker WBC 7.5 103/ul Normal 4.0-11.0 [facility] Comment on above: Performed By: #### C BC ####[facility] [address] [place], [place] [address]Xe. Fidencio Walker LIPID PROFILEon 07-17-2022 CHOL-HDL RATIO NORM SEE BELOW Normal [facility] Comment on above: Result Comment: 3.3 - 4.4 LOW RISK 4.4 - 7.1 AVERAGE RISK 7.1 - 11.0 MODERATE RISK >11.0 HIGH RISK Performed By: #### L IPID, LIVER, BMP ####[facility] [address]fr[address] [place] [address]Dr. Fidencio Walker Cholesterol [Mass/Vol] 134 mg/dL Normal <=200 [facility] Comment on above: Performed By: #### L IPID, LIVER, BMP ####[facility] [address]le[address]whylx[address] [place] [address]Dr. Fidencio Walker Cholesterol in HDL [Mass/Vol] 57 mg/dL Normal 40-60 [facility] Comment on above: Performed By: #### L IPID, LIVER, BMP ####[facility] Pbodlebnxi[address] [place] [address]Dr. Fidencio Walker Cholesterol in LDL [Mass/Vol] 59.6 mg/dL Normal [facility] Comment on above: Performed By: #### L IPID, LIVER, BMP ####[facility] W[address]zz[address] [place] [address]Dr. Fidencio Walker Cholesterol.total/Ch olesterol in HDL [Mass ratio] 2.4 {ratio} Normal [facility] Comment on above: Performed By: #### L IPID, LIVER, BMP ####[facility] [address]feb[address]qq[address] [place] [address]Dr. Fidencio Walker HDL NORMAL > or = 60 mg/dl - LO W CARDIOVASCULAR RISK <40 mg/dl - HIGH CARDIOVASCULAR RISK Normal [facility] Comment on above: Performed By: #### L IPID, LIVER, BMP ####[facility] [address]vbj[address] [place] [address]Dr. Fidencio Walker LDL CALC NORMAL SEE BELOW Normal [facility] Comment on above: Result Comment: <100 mg/dl OPTIMAL 100 - 129 mg/dl NEAR OR ABOVE OPTIMAL 130 - 159 mg/dl BORDERLINE HIGH 160 - 189 mg/dl HIGH >190 mg/dl VERY HIGH Performed By: #### L IPID, LIVER, BMP ####[facility] [address]xot[address]lbnc[address] [place] [address]Dr. Fidencio Walker Triglyceride [Mass/Vol] 87 mg/dL Normal <=150 [facility] Comment on above: Performed By: #### L IPID, LIVER, BMP ####[facility] [address]soq[address]dqs[address] [place] [address]Dr. Fidencio Walker VLDL CALC 17.4 mg/dL Normal [facility] Comment on above: Performed By: #### L IPID, LIVER, BMP ####[facility] [address]ef[address] [place] [address]Dr. Fidencio Walker LIVER PROFILEon 07-17-2022 Albumin [Mass/Vol] 3.7 g/dL Normal 3.4-5.0 [facility] Comment on above: Performed By: #### L IPID, LIVER, BMP ####[facility] Fgxsymkiel[address] [place] [address]Dr. Fidencio Walker Albumin/Globulin [Mass ratio] 1.0 {ratio} Normal [facility] Comment on above: Performed By: #### L IPID, LIVER, BMP ####[facility] J[address]xc[address]le[address] [place] [address]Dr. Fidencio Walker ALP [Catalytic activity/Vol] 58 U/L Normal 46-116 [facility] Comment on above: Performed By: #### L IPID, LIVER, BMP ####[facility] I[address]zcyurmsq[address] [place] [address]Dr. Fidencio Walker ALT [Catalytic activity/Vol] 13 U/L Critically low 14-59 [facility] Comment on above: Performed By: #### L IPID, LIVER, BMP ####[facility] Awriujtcfx[address] [place] [address]Dr. Fidencio Walker AST [Catalytic activity/Vol] 18 U/L Normal 15-37 [facility] Comment on above: Performed By: #### L IPID, LIVER, BMP ####[facility] Z[address]ewglruov[address] [place] [address]Dr. Fidencio Walker BILI, CONJUGATED 0.1 mg/dL Normal 0.0-0.2 [facility] Comment on above: Performed By: #### L IPID, LIVER, BMP ####[facility] [address] [place], [place] [address]Dr. Fidencio Walker Bilirubin [Mass/Vol] 0.3 mg/dL Normal 0.2-1.0 [facility] Comment on above: Performed By: #### L IPID, LIVER, BMP ####[facility] [address] [place], [place] [address]Dr. Fidencio Walker Globulin (S) [Mass/Vol] 3.6 g/dL Normal [facility] Comment on above: Performed By: #### L IPID, LIVER, BMP ####[facility] [address]wuqzgbls[address] [place] [address]Dr. Fidencio Walker Protein [Mass/Vol] 7.3 g/dL Normal 6.4-8.2 [facility] Comment on above: Performed By: #### L IPID, LIVER, BMP ####[facility] Emitgxrqly[address] [place] [address]Dr. Fidencio Walker PROF CHEM 8 (BAS METB)on Anion gap [Moles/Vol] 11.3 mmol/L Normal [facility] Comment on above: Performed By: #### L IPID, LIVER, BMP ####[facility] [address] [place], [place] [address]Dr. Fidencio Walker Calcium [Mass/Vol] 9.2 mg/dL Normal 8.5-10.1 [facility] Comment on above: Performed By: #### L IPID, LIVER, BMP ####[facility] [address]ijfn[address] [place] [address]Dr. Fidencio Walker Chloride [Moles/Vol] 102 mmol/L Normal 98-107 [facility] Comment on above: Performed By: #### L IPID, LIVER, BMP ####[facility] [address]xefqdvz[address] [place] [address]Dr. Fidecnio Walker CO2 [Moles/Vol] 29.5 mmol/L Normal 21.0-32.0 [facility] Comment on above: Performed By: #### L IPID, LIVER, BMP ####[facility] [address]jb[address]zv[address] [place] [address]Dr. Fidencio Walker Creatinine [Mass/Vol] 0.92 mg/dL Normal 0.55-1.02 [facility] Comment on above: Performed By: #### L IPID, LIVER, BMP ####[facility] [address]hsycsso[address] [place] [address]Dr. Fidencio Walker EGFR-AF SWEDISH >60 Normal >=60 [facility] Comment on above: Result Comment: Prev iously reported as: (blank) On 07/17/2022 13:28 By AJR Performed By: #### L IPID, LIVER, BMP ####[facility] [address]zh[address] [place] [address]Dr. Fidencio Walker EGFR-NON AF SWEDISH 59 mL/min/1.73m2 Critically low >=60 [facility] Comment on above: Result Comment: Prev iously reported as: (blank) On 07/17/2022 13:28 By AJR Performed By: #### L IPID, LIVER, BMP ####[facility] [address] [place] [address]Dr. Fidencio Walker Glucose [Mass/Vol] 98 mg/dL Normal 74-106 [facility] Comment on above: Performed By: #### L IPID, LIVER, BMP ####[facility] [address] [place] [address]Dr. Fidencio Walker Potassium [Moles/Vol] 3.8 mmol/L Normal 3.5-5.1 [facility] Comment on above: Performed By: #### L IPID, LIVER, BMP ####[facility] [address] [place], [place] [address]Ug. Fidencio Walker Sodium [Moles/Vol] 139 mmol/L Normal 136-145 [facility] Comment on above: Performed By: #### L IPID, LIVER, BMP ####[facility] [address] [place], [place] [address]Yq. Fidencio Walker Urea nitrogen [Mass/Vol] 19.0 mg/dL Critically high 7.0-18.0 [facility] Comment on above: Performed By: #### L IPID, LIVER, BMP ####[facility] [address] [place] [address]Dr. Fidencio Walker Urea nitrogen/Creatinine [Mass ratio] 20.7 mg/mg Normal [facility] Comment on above: Performed By: #### L IPID, LIVER, BMP ####[facility] [address] [place] [address]Dr. Fidencio Walker VC INJ SCL BERTA VIDEOTAPE SALES REPRESENTATIVE VEINSon 1 VC INJ SCL BERTA VIDEOTAPE SALES REPRESENTATIVE VEINS Patient: KOLTON NAPIER Exam Date: 04/16/2022 : 1945 Gender:F Ordering : DR MARIALUISA AVITIA M.D. Admission #: [id number] Family : Order #: [id number] CLICK HERE TO VIEW EXAM RADIOLOGY REPORT PROCEDURE: VEIN CENTER INJECTION SCLEROSING SOLUTION MULTIPLE VEINS SAME COMPARISON: VC INJ SCL BERTA VIDEOTAPE SALES REPRESENTATIVE VEINS, 04/02/2022. VC INJ SCL BERTA VIDEOTAPE SALES REPRESENTATIVE VEINS, 03/24/2022. INDICATIONS: Pain co-occurrent and due [...] [facility] VC INJ SCL BERTA VIDEOTAPE SALES REPRESENTATIVE VEINSon 0 04-02-2022 VC INJ SCL BERTA VIDEOTAPE SALES REPRESENTATIVE VEINS Patient: KOLTON NAPIER. Exam Date: 04/02/2022 : 1945 Gender:F Ordering : DR MARIALUISA AVITIA M.D. Admission #: [id number] Family : Order #: [id number] CLICK HERE TO VIEW EXAM RADIOLOGY REPORT PROCEDURE: VEIN CENTER INJECTION SCLEROSING SOLUTION MULTIPLE VEINS SAME COMPARISON: VC INJ SCL BERTA VIDEOTAPE SALES REPRESENTATIVE VEINS, 03/24/2022. INDICATIONS: Pain co-occurrent and due [...] [facility] VC INJ SCL BERTA VIDEOTAPE SALES REPRESENTATIVE VEINSon 0 03-24-2022 VC INJ SCL BERTA VIDEOTAPE SALES REPRESENTATIVE VEINS Patient: KOLTON NAPIER. Exam Date: 03/24/2022 : 1945 Gender:F Ordering : DR MARIALUISA AVITIA M.D. Admission #: [id number] Family : Order #: [id number] CLICK HERE TO VIEW EXAM RADIOLOGY REPORT PROCEDURE: VEIN CENTER INJECTION SCLEROSING SOLUTION MULTIPLE VEINS SAME COMPARISON: VC INJ SCL BERTA VIDEOTAPE SALES REPRESENTATIVE VEINS, 03/19/2022. VC INJ SCL BERTA VIDEOTAPE SALES REPRESENTATIVE VEINS, 03/10/2022. INDICATIONS: Pain co-occurrent and due [...] Avitia MD on 03/24/2022 at 13:[address] [facility] VC INJ SCL BERTA VIDEOTAPE SALES REPRESENTATIVE VEINSon 0 03-19-2022 VC INJ SCL BERTA VIDEOTAPE SALES REPRESENTATIVE VEINS Patient: KOLTON NAPIER Exam Date: 03/19/2022 : 1945 Gender:F Ordering : DR MARIALUISA AVITIA M.D. Admission #: [id number] Family : Order #: [id number] CLICK HERE TO VIEW EXAM RADIOLOGY REPORT PROCEDURE: VEIN CENTER INJECTION SCLEROSING SOLUTION MULTIPLE VEINS SAME COMPARISON: VC INJ SCL BERTA VIDEOTAPE SALES REPRESENTATIVE VEINS, 03/10/2022. VC INJ SCL BERTA VIDEOTAPE SALES REPRESENTATIVE VEINS, 03/03/2022. INDICATIONS: Pain co-occurrent and due [...] [facility] VC INJ SCL BERTA VIDEOTAPE SALES REPRESENTATIVE VEINSon 0 03-10-2022 VC INJ SCL BERTA VIDEOTAPE SALES REPRESENTATIVE VEINS Patient: KOLTON NAPIER. Exam Date: 03/10/2022 : 1945 Gender:F Ordering : DR MARIALUISA AVITIA M.D. Admission #: [id number] Family : Order #: [id number] CLICK HERE TO VIEW EXAM RADIOLOGY REPORT PROCEDURE: VEIN CENTER INJECTION SCLEROSING SOLUTION MULTIPLE VEINS SAME COMPARISON: VC INJ SCL BERTA VIDEOTAPE SALES REPRESENTATIVE VEINS, 03/03/2022. INDICATIONS: Pain co-occurrent and due [...] [facility] VC INJ SCL BERTA VIDEOTAPE SALES REPRESENTATIVE VEINSon 0 03-03-2022 VC INJ SCL BERTA VIDEOTAPE SALES REPRESENTATIVE VEINS Patient: KOLTON NAPIER. Exam Date: 03/03/2022 : 1945 Gender:F Ordering : DR MARIALUISA AVITIA M.D. Admission #: [id number] Family : Order #: [id number] CLICK HERE TO VIEW EXAM RADIOLOGY REPORT [...] : DR MARIALUISA AVITIA M.D. Admission #: [id number] Family : Order #: [id number] CLICK HERE TO VIEW EXAM RADIOLOGY REPORT [...] : DR MARIALUISA AVITIA M.D. Admission #: [id number] Family : Order #: [id number] CLICK HERE TO VIEW EXAM RADIOLOGY REPORT [...] : DR MARIALUISA AVITIA M.D. Admission #: [id number] Family : Order #: [id number] CLICK HERE TO VIEW EXAM RADIOLOGY REPORT [...] : DR MARIALUISA AVITIA M.D. Admission #: [id number] Family : Order #: [id number] CLICK HERE TO VIEW EXAM RADIOLOGY REPORT [...] : DR MARIALUISA AVITIA M.D. Admission #: [id number] Family : Order #: [id number] CLICK HERE TO VIEW EXAM RADIOLOGY REPORT [...] : DR MARIALUISA AVITIA M.D. Admission #: [id number] Family : Order #: [id number] CLICK HERE TO VIEW EXAM RADIOLOGY REPORT [...] Vaughan M.D. on 02/03/2022 at 14:01 Normal [facility] COMP CONSULTATIONon 01-22 VC COMP CONSULTATION Patient: DO HERI NAPIER Exam Date: 01/22/2022 : 1945 Gender:F Ordering : DR MARIALUISA AVITIA M.D. Admission #: [id number] Family : Order #: [id number] CLICK HERE TO VIEW EXAM RADIOLOGY REPORT [...] : DR MARIALUISA AVITIA M.D. Admission #: [id number] Family : Order #: [id number] CLICK HERE TO VIEW EXAM RADIOLOGY REPORT [...] chronic thrombus visualized Compressibility: Normal Flow: Normal Industrial Roofer: Dist/med calf 2.7mm with 0s. Mid/med calf [...] Flow: 1.2s of reflux in popliteal vein Industrial Roofer: Dist/med calf 4.7mm with 0s reflux. Tech [...] OBSOLETEon 05-15-2019 OBSOLETE Refill (KAROL) KOLTON NAPIER ([id number]) 1945 F Date Time Provider Department 05/15/19 JAMES JOHNSON During your visit today, we recorded the following information about you: Maribel Jo [employer] Practitioner II 05/16/2019 4:42 PM Signed Call from pharmacy requesting refill. Pending Prescriptions Disp Refills DILTIAZEM 30 MG TABLET 270 tablet 1 Sig: TAKE ONE TABLET BY MOUTH THREE TIMES A DAY FLORENCIA: Yes Patient last seen 05/30/18 Maribel Jo [employer] Practitioner II Allergies As of Date: 05/15/2019 Noted [...] MD on 05/20/19 [facility] ADANOVrios 05-30-2018 CNOV Office Visit (CARDMN ) KOLTON NAPIER ([id number]) 1945 F Date Time Provider Department 05/30/18 2:00 PM JAMES JOHNSON During your visit today, we recorded the following information about you: Pulse Blood pressure Weight Height 114/minute 140/78 73.9 kg 1.626 m James Johnson MD, MD 05/30/2018 5:53 PM Signed [facility] [place] [facility] Department of Cardiovascular Medicine SECTION OF CARDIAC PACING and ELECTROPHYSIOLOGY OUTPATIENT VISIT DATE May 30, 2018 OUTPATIENT VISIT TYPE NEW PRIMARY CARE PHYSICIAN: Shaheed De La Torre MD ([facility]) [address] [place] [address] IMPRESSION/PLAN: The patient is very pleasant female [...] ECG today: Sinus tachycardia at 114 bpm. MI 154 ms, QRS 86 ms, QTC 460 ms. FOLLOW UP: Return in about 4 months (around 09/27/2018). This note was created using computerized locomotive crane operator software and may therefore include some locomotive crane operator errors including errors in gender and inappropriate words or phrases. I reviewed old records, obtained relevant HPI and PMH from the pt, examined the patient and created the above report. James Johnson MD May 30, 2018 Note to: Shaheed De La Torre MD ([facility]) [address] [place] [address] James Johnson MD, MD 05/30/2018 3:19 PM Signed If symptoms not improving in 7-10 days on low dose diltiazem, call. Referring Provider: REFERRAL, NO(HIST) [[id number]] Allergies As of Date: 05/30/2018 Noted Allergy [...] by JAMES JOHNSON MD on 05/30/18 Normal [place] ECG COMPLETE W INTERPRETATIO Non 05-30-2018 ECG COMPLETE W INTERPRETATION NAME : KOLTON NAPIER PID : [id number] : 1945 Gender : Female Race : ORD : [id number] Procedure Date : May 30 2018 13:36:13 Edit Date : May 31 2018 13:51:33 Diagnosis:SINUS TACHYCARDIA WITH PREMATURE ATRIAL COMPLEXES OTHERWISE NORMAL ECG Confirmed by MD YAN TAMANNA ([id number]) on 05/31/2018 1:51:26 PM Ventricular Rate : 114 BPM Atrial Rate : 114 BPM P-R Interval : 154 ms QRS Duration : 86 ms Q-T Interval : 334 ms QTC Calculation(Bezet) : 460 ms P [place] : 37 degrees R [place] : 30 degrees T [place] : 46 degrees Test Reason : Location : 314 : J14 Overread By : MD YAN TAMANNA Edited By : MD YAN TAMANNA Referred By : JAMES JOHNSON Acquired by : BHUMIKA SANCHEZ [place] PROGRESSon 05-30-2018 PROGRESS HNO ID: [id number] Author: James Johnson MD Service: (none) Author Type: Physician Type: Progress Notes Filed: 05/30/2018 5:53 PM Note Text: [facility] [place] [facility] Department of Cardiovascular Medicine SECTION OF CARDIAC PACING and ELECTROPHYSIOLOGY OUTPATIENT VISIT DATE May 30, 2018 OUTPATIENT VISIT TYPE NEW PRIMARY CARE PHYSICIAN: Shaheed De La Torre MD ([facility]) [address] [place] [address] IMPRESSION/PLAN: The patient is very pleasant female [...] ECG today: Sinus tachycardia at 114 bpm. MI 154 ms, QRS 86 ms, QTC 460 ms. FOLLOW UP: Return in about 4 months (around 09/27/2018). This note was created using computerized locomotive crane operator software and may therefore include some locomotive crane operator errors including errors in gender and inappropriate words or phrases. I reviewed old records, obtained relevant HPI and PMH from the pt, examined the patient and created the above report. James Johnson MD May 30, 2018 Note to: Shaheed De La Torre MD ([facility]) [address] [place] [address] Normal [place] Vital Signs Date Time Vital Sign Value Performing Clinician Faci lity 04-03-2024 09:18-0400 Body height 162.6 cm Shaheed De La Torre MD Work Phone: [facility] 04-03-2024 09:18-0400 Body mass index (BMI) [Ratio] 25.92 kg/m2 Shaheed De La Torre MD Work Phone: [facility] 04-03-2024 09:18-0400 Body temperature 95.7 [degF] Shaheed De La Torre MD Work Phone: [facility] 04-03-2024 09:18-0400 Body weight 68.49 kg Shaheed De La Torre MD Work Phone: [facility] 04-03-2024 09:18-0400 Diastolic blood pressure 80 mm[Hg] Shaheed De La Torre MD Work Phone: [facility] 04-03-2024 09:18-0400 Heart rate 86 /min Shaheed De La Torre MD Work Phone: [facility] 04-03-2024 09:18-0400 Respiratory rate 20 /min Shaheed De La Torre MD Work Phone: [facility] 04-03-2024 09:18-0400 SaO2% (BldA) [Mass fraction] 97 % Shaheed De La Torre MD Work Phone: [facility] 04-03-2024 09:18-0400 Systolic blood pressure 140 mm[Hg] Shaheed De La Torre MD Work Phone: [facility] 08-19-2023 14:36-0500 Body height 162.6 cm Shaheed De La Torre MD Work Phone: [facility] 08-19-2023 14:36-0500 Body mass index (BMI) [Ratio] 26.09 kg/m2 Shaheed De La Torre MD Work Phone: [facility] 08-19-2023 14:36-0500 Body temperature 98.1 [degF] Shaheed De La Torre MD Work Phone: [facility] 08-19-2023 14:36-0500 Body weight 68.95 kg Shaheed De La Torre MD Work Phone: [facility] 08-19-2023 14:36-0500 Diastolic blood pressure 70 mm[Hg] Shaheed De La Torre MD Work Phone: [facility] 08-19-2023 14:36-0500 Heart rate 71 /min Shaheed De La Torre MD Work Phone: [facility] 08-19-2023 14:36-0500 SaO2% (BldA) [Mass fraction] 98 % Shaheed De La Torre MD Work Phone: [facility] 08-19-2023 14:36-0500 Systolic blood pressure 108 mm[Hg] Shaheed De La Torre MD Work Phone: [facility] Encounters Encounter Date Encounter Type Care Provider Facility Start: 06-29-2024 End: 06-29-2024 Emergency department patient visit SHAHEED DE LA TORRE [facility] Start: 06-26-2024 End: 06-26-2024 ambulatory EHAB [facility] Start: 06-12-2024 End: 06-12-2024 Refill Shaheed De La Torre MD Work Phone: [facility] Comment on above: MDD (major depressiv e disorder), recurrent episode, moderate ([facility]/HCC) Start: 05-30-2024 End: 05-30-2024 Clinisync Result Encounter Generic External Data Provider [facility] External Department Unsolicited Start: 05-30-2024 End: 05-30-2024 Clinisync Result Encounter Generic External Data Provider [facility] External Department Unsolicited Start: 04-19-2024 End: 04-19-2024 Refill Shaheed De La Torre MD Work Phone: [facility] Comment on above: LAUREL (generalized anx iety disorder) ([facility]) Start: 04-03-2024 End: 04-03-2024 Bamboo flowsheet [...] (Primary Dx); Mild intermittent asthma without complication ([facility]/HCC); Benign essential hypertension ([facility]) Start: 03-09-2024 End: 03-09-2024 ambulatory SHAHEED [...] 08-23-2023 End: 08-23-2023 ambulatory AB [facility] Start: 08-19-2023 End: 08-19-2023 Office [...] DE LA TORRE Not Available Start: 08-19-2023 BamEvirxbeau flowseli De La Torre MD Work Phone: [facility] Start: 08-19-2023 [facility] MD Work Phone: [...] Visit FRANCISCO JOHNSON [address] [place] [address] Shaheed De La Torre MD [address] [place] [id number] [facility] Start: 04-03-2024 End: 04-03-2024 Patient encounter procedure 04/03/2024 9:15 AM EDT Office Visit FRANCISCO JOHNSON [address] [place] [address] Shaheed De La Torre MD [address] [place] [phone] Arrived [facility] Comment on above: Arrived Start: 03-09-2024 End: 03-09-2024 Patient encounter procedure [facility] Comment on above: Arrived Start: 03-05-2024 Influenza vaccination Influenza Vacc ine (#1) [facility] Start: 08-19-2023 End: 08-19-2023 Patient encounter procedure 08/19/2023 2:30 PM EST Office Visit [facility] [address] [place] [address] Shaheed De La Torre MD [address] [place] [phone] Arrived [facility] Comment on above: Arrived Start: 08-19-2023 End: 08-19-2024 Basic metabolic 1998 panel - Serum or Plasma Basic metabolic panel Lab Routine Benign essential hypertension (CMS/HCC) Expected: 08/19/2023 (Approximate), Expires: 08/19/2024 [facility] Work Phone: Comment on above: Expected: 08/19/2023 (Approximate), Expires: 08/19/2024 Start: 08-19-2023 End: 08-19-2024 CBC W Auto Differential panel - Blood CBC and differential Lab Routine Encounter for long-term (current) use of medications Expected: 08/19/2023 (Approximate), Expires: 08/19/2024 [facility] Comment on above: Expected: 08/19/2023 (Approximate), Expires: 08/19/2024 Start: 08-19-2023 End: 08-19-2024 Hepatic function 2000 panel - Serum or Plasma Hepatic function panel Lab Routine Encounter for long-term (current) use of medications Expected: 08/19/2023 (Approximate), Expires: 08/19/2024 [facility] Comment on above: Expected: 08/19/2023 (Approximate), [...] Category Payer Medicaid [employer] MEDICARE A DVANTAGE [id number] 2022 Medicare AETNA MEDICARE A DVANTAGE AETNA MEDICARE REPLACEMENT [id number] 2022-Present [address] [place] [address] [id number] 1959 Medicare [id number] 1945 Unknown [id number] [id number]3 1945 Unknown [id number] 2.16.840.1.396556.3.579.2.593 1945 Unknown [id number] 2.16.840.1.889092.3.579.2.593 1945 Unknown [id number] 2.16.840.1.994143.3.579.2.593 1945 Unknown [id number] 2.16.840.1.068944.3.579.2.593 1945 Unknown [id number] 2.16.840.1.489201.3.579.2.593 1945 Unknown [id number] 2.16.840.1.684740.3.579.2.593 1945 Unknown [id number] 2.16.840.1.213445.3.579.2.593 1945 Unknown [id number] 2.16.840.1.788955.3.579.2.593 1945 Unknown [id number] 2.16.840.1.910800.3.579.2.593 1945 Unknown [id number] 2.16.840.1.643559.3.579.2.593 1945 Unknown [id number] 2.16.840.1.398273.3.579.2.593 1945 Unknown [id number] 2.16.840.1.259600.3.579.2.593 1945 Unknown [id number] 2.16.840.1.430889.3.579.2.1259 1945 Unknown [id number] 2.16.840.1.986583.3.579.2.1259 1945 Unknown [id number] 2.16.840.1.726206.3.579.2.1259 1945 Unknown [id number] 2.16.840.1.109667.3.579.2.1259 1945 Unknown [id number] 2.16.840.1.996839.3.579.2.1259 1945 Unknown [id number] 2.16.840.1.230659.3.579.2.1259 1945 Unknown [id number] 2.16.840.1.947567.3.579.2.1286 Social History Date Type Detail Facility Start: 06-10-2023 End: 08-19-2023 Tobacco smoking status NHIS Never smoked tobacco [facility] Start: 06-10-2023 End: 08-19-2023 Tobacco use and exposure Smokeless tobacco non-user [facility] Start: 06-10-2023 End: 04-03-2024 Alcohol intake Ex-drinker (finding) [facility] Start: 06-10-2023 End: 08-19-2023 History of Social function [facility] Start: 06-10-2023 End: 08-19-2023 Tobacco use panel [facility] Start: 06-10-2023 Alcohol Comment holiday [facility] Start: 1945 Sex Assigned At Not on file [facility] NEGATED: Highlighted rowStart: NINF History of tobacco use Passive smoker [facility] Clinical Notes 08-19-2023 to 06-26-2024 Shaheed De La Torre MD - 04/03/2024 10:00 AM Deep De La Torre MD - 04/03/2024 10:00 AM Deep De La Torre MD - 04/03/2024 9:15 AM Deep De La Torre MD - 03/09/2024 11:43 AM EDT Note Date & Type Note Facility 06-26-2024 Note [facility] Cardiology Clinic Note Chief Complaint: Patient here [...] her echocardiogram Eve Adams MD, MPH, FACC, [facility] (more content not included)... [facility] 06-26-2024 Note [facility] Cardiology Clinic Note Chief Complaint: Patient here [...] history of COPD (chronic obstructive pulmonary disease) ([facility]), Heart murmur, Heart valve disease, Hypertension, [...] COPD, inhalers hel (more content not included)... [facility] 04-03-2024 History of Present illness Narrative Associated [...] PRN. Start PT. documented in this encounter [facility] 03-09-2024 History of Present illness Narrative Associated [...] 78 y.o. female who presents for Follow-up ([facility] f/up). Hospital follow up from 02/27-03/01 for [...] with treatment. Monitor. documented in this encounter [facility] 08-23-2023 Note [facility] Cardiology Clinic Note Chief Complaint: Patient here [...] following her echocardiogram [facility] MPH, [facility], [facility] Interventional Cardiology Pager Email: [email or web address] 08-19-2023 History of Present illness Narrative [...] mild (HCC) (CMS/HCC) documented in this encounter [facility] HealthcareEvaluation note* Diagnosis MDD (major depressive [...] mild (HCC) (CMS/HCC) LAUREL (generalized anxiety disorder) ([facility]/HCC) Generalized anxiety disorder Lumbosacral spinal stenosis Viral [...] asthma without complication (CMS/HCC) Benign essential hypertension ([facility]/HCC) Essential hypertension, benign documented in this encounter [...] CREATED AUTHOR AUTHOR'S ORGANIZ ATION 09/27/2022 [facility] DATE CREATED AUTHOR AUTHOR'S ORGANIZ ATION 04/03/2024 [facility]ical [facility] DATE CREATED AUTHOR AUTHOR'S ORGANIZ ATION 06/28/2024 [facility] DATE CREATED AUTHOR AUTHOR'S ORGANIZ ATION 06/30/2024 [facility] Care Teams (unrecognized sec tion and content) Cigar Head Perforator Relationship Specialty Start Date End Date Shaheed De La Torre MD [address] [place] [phone] PCP - General Family Medicine 08/19/23 Cigar Head Perforator Relationship Specialty Start Date End Date Shaheed De La Torre MD [address] [place] [phone] PCP - General Family Medicine 08/19/23 Cigar Head Perforator Relationship Specialty Start Date End Date Shaheed De La Torre MD [address] [place] [phone] PCP - General Family Medicine 08/19/23 Cigar Head Perforator Relationship Specialty Start Date End Date Shaheed De La Torre MD [address] [place] [phone] PCP - General Family Medicine 08/19/23 Cigar Head Perforator Relationship Specialty Start Date End Date Shaheed De La Torre MD [address] [place] [phone] PCP - General Family Medicine 08/19/23 Cigar Head Perforator Relationship Specialty Start Date End Date Shaheed De La Torre MD [address] [place] [phone] PCP - General Family Medicine 08/19/23 Cigar Head Perforator Relationship Specialty Start Date End Date Shaheed De La Torre MD [address] [place] [address] PCP - General Family Medicine 08/19/23 Reason [...] BE BASED ON THE PRIMARY CLINICAL RECORDS. [employer] [facility]. provides no warranty or guarantee of the accuracy or completeness of information in this document.
--- NOTE | 2024-07-02 12:48 | CT_ITS ---
The [address] [address] Patient Name: KOLTON NAPIER MRN: [id number] date: 1945 Sex: F Assigned Patient Location: [place] Current Patient Location: [place] Accession/Order Number: [id number] Exam Date: 07/02/2024 13:32 Report Date: 07/02/2024 15:06 At the request of: LAURA GOMEZ Procedure: CT head/brain wo con HEAD CT WITHOUT CONTRAST: 07/02/2024 1:32 PM EST Clinical Data: s/p fall Comparison: No previous Unenhanced axial data from base to vertex. INTRA-AXIAL: No acute hemorrhage. No acute infarction is evident. Mild periventricular white matter disease. EXTRA-AXIAL: No acute hemorrhage. No focal fluid collection. Heavily calcified/ossified lesion overlying the left lateral frontal insular region. This measures 28 mm in maximum size. The overlying calvarium is irregular. There is moderate mass effect upon the underlying brain. BRAIN VOLUME: Unremarkable for age. VENTRICLES: No hydrocephalus PARANASAL SINUSES: A fairly small amount of fluid left sphenoid sinus. Areas of mild to modest disease in aspects of the ethmoids. MASTOIDS: Clear. CALVARIUM: No acute finding. EXTRACALVARIAL: No acute findings CT/CT head/brain wo con IMPRESSION: 1. No evidence of acute intracranial hemorrhage or infarction. No hydrocephalus. 2. Findings consistent with a 28 mm meningioma left lateral frontal-insular region. All CT scans at this facility use dose modulation, iterative reconstruction, and/or weight based dosing when appropriate to reduce radiation dose to as low as reasonably achievable. Electronically authenticated by: MEIR LARA Date: 07/02/2024 15:06
[2024-07-02 13:08] LABS: Basophils Percent Auto 0.3 % (0.2-2.0); Eosinophils Absolute Auto 0.1 10^3/uL (0.0-0.7); Eosinophils Percent Auto 0.6 % (0.9-7.0); Hematocrit 41.9 % (36.0-48.0); Hemoglobin 14.6 g/dL (12.0-16.0); Immature Granulocytes Abs Auto 0.01 10^3/uL (0.00-0.03); Immature Granulocytes Pct Auto 0.1 % (0.0-0.5); Lymphocytes Absolute Auto 1.9 10^3/uL (1.2-3.8); Lymphocytes Percent Auto 21.5 % (20.5-60.0); Mean Corpuscular HGB Conc 34.8 g/dL (29.9-35.2); Mean Corpuscular Hemoglobin 32.2 pg (26.7-34.0); Mean Corpuscular Volume 92.3 fL (81.0-99.0); Mean Platelet Volume 9.8 fL (9.5-13.5); Monocytes Absolute Auto 0.9 10^3/uL (0.3-0.8); Neutrophils Percent Auto 67.5 % (43.0-75.0); Platelet Count 261 10^3/uL (150-450); Red Blood Count 4.54 10^6/uL (4.20-5.40); Red Cell Distribution Width 11.9 % (11.0-15.0); White Blood Count 8.9 10^3/uL (4.0-11.0)
[2024-07-02 13:26] LABS: Influenza Virus A Antigen Negative; Influenza Virus B Antigen Negative; Internal Control Within Normal Limits
[2024-07-02 13:27] LABS: Internal Control Within Normal Limits; SARS-CoV-2 Ag NEGATIVE (NEGATIVE)
--- NOTE | 2024-07-02 13:33 | P.HP_ITS ---
HPI H&P: HPI History of Present Illness Chief complaint: constipation, unable to care for self Narrative: Patient presented to emergency room with increasing abdominal pain. Also pain in the perineal area. She said significant yeast infections are in the past. X-ray unchanged from previous but showed moderate to severe constipation. I saw patient up on the medical surgical floor, she was pretty alert and oriented, does describe lower abdominal pain. As well as perineal pain. Opioid HPI Opioid Management Most Recent Pain and Opioid Data: Last Pain Assessment 07/02/24 13:00 Last ORT Total Score 0 07/02/24 11:57 07/02/24 Last ORT Risk Category Low Risk 07/02/24 11:57 07/02/24 PFSH PFSH Medical History (Updated 07/02/24 @ 13:36 by Blake Ventura MD) Hyperlipemia ?E78.5 - Hyperlipidemia, unspecified (ICD-10) GERD (gastroesophageal reflux disease) ?K21.9 - Gastro-esophageal reflux disease without esophagitis (ICD-10) Anxiety ?F41.9 - Anxiety disorder, unspecified (ICD-10) Arthritis ?M19.90 - Unspecified osteoarthritis, unspecified site (ICD-10) Anemia ?D64.9 - Anemia, unspecified (ICD-10) Asthma ?J45.909 - Unspecified asthma, uncomplicated (ICD-10) Diarrhea ?R19.7 - Diarrhea, unspecified (ICD-10) Constipation ?K59.00 - Constipation, unspecified (ICD-10) Tachycardia ?R00.0 - Tachycardia, unspecified (ICD-10) Palpitations ?R00.2 - Palpitations (ICD-10) Hypertension ?I10 - Essential (primary) hypertension (ICD-10) Colon polyp ?K63.5 - Polyp of colon (ICD-10) Surgical History History of bladder surgery ?Z98.890 - Other specified postprocedural states (ICD-10) History of colonoscopy ?Z98.890 - Other specified postprocedural states (ICD-10) History of esophagogastroduodenoscopy (EGD) ?Z98.890 - Other specified postprocedural states (ICD-10) History of hysterectomy ?Z90.710 - Acquired absence of both cervix and uterus (ICD-10) History of cholecystectomy ?Z90.49 - Acquired absence of other specified parts of digestive tract (ICD-10) History of appendectomy ?Z90.49 - Acquired absence of other specified parts of digestive tract (ICD- 10) Family History (Updated 07/02/24 @ 12:08 by Lelia Vital RN) Mother Family history of diabetes mellitus Other Family history of Alzheimer's disease Family history of breast cancer Family history of gastric cancer Family history of heart disease Family history of stroke Social History Within the past year, how often did you have a drink containing alcohol: monthly or less Smoking status: Never smoker Non-prescribed substance use: denies use Highest level of school completed/degree received: 9th grade Little interest or pleasure in doing things: not at all Feeling down, depressed, or hopeless: not at all Meds Home Medications and Allergies Home Medications ?Medication ?Instructions ?Recorded ?Confirmed ?Type albuterol sulfate 90 mcg/actuation 2 inh inhalation Q6H PRN shortness 01/14/23 07/02/24 History aerosol inhaler of breath or wheezing fluticasone fur. 100 mcg-umeclid 1 inh inhalation DAILY 01/14/23 07/02/24 History 62.5 mcg-vilant 25 mcg inhalat.powder (Trelegy Ellipta) losartan 100 1 tab PO DAILY 01/14/23 07/02/24 History mg-hydrochlorothiazide 25 mg tablet (Hyzaar) omeprazole 40 mg capsule,delayed 40 mg PO DAILY 01/14/23 07/02/24 History release rosuvastatin 10 mg tablet (Crestor) 10 mg PO DAILY 01/14/23 07/02/24 History alprazolam 0.5 mg tablet 0.25 mg PO TID PRN anxiety 02/28/24 07/02/24 History diltiazem HCl 60 mg tablet 60 mg PO TID 02/28/24 07/02/24 History fluoxetine 40 mg capsule 40 mg PO DAILY 02/28/24 07/02/24 History potassium chloride 20 mEq 20 meq PO BID 02/28/24 07/02/24 History tablet,extended release dextromethorphan-guaifenesin 30 1 tab PO DAILY #10 tabs 03/01/24 07/02/24 Rx mg-600 mg tablet extended [id number] hr (Mucinex DM) ipratropium bromide 0.02 % 2.5 ml inhalation Q8H PRN 03/01/24 07/02/24 Rx solution for inhalation shortness of breath or wheezing #75 mL levalbuterol HCl 1.25 mg/3 mL 1.25 mg (3 mL) inhalation Q8H PRN 03/01/24 07/02/24 Rx solution for nebulization shortness of breath or wheezing #75 mL Allergies Allergy/AdvReac Type Severity Reaction Status Date / Time No Known Drug Allergies Allergy Verified 07/02/24 08:19 Exam Constitutional Vital Signs, click to edit/add: Last Vital Signs Temp 98.6 F 07/02/24 07:20 Pulse 81 07/02/24 07:20 Resp 18 07/02/24 07:20 BP 160/88 H 07/02/24 07:20 Pulse Ox 100 07/02/24 07:20 O2 Del Method Room Air 07/02/24 07:20 Documenting provider has reviewed patient's vital signs: yes Common normals: no apparent distress Chest Common normals: inspection of chest normal Respiratory Common normals: normal respiratory effort and no retractions Cardio Common normals: regular rate and regular rhythm GI Common normals: Normal to inspection, nondistended, normoactive bowel sounds present and soft to palpation; tender Palpation: tender (Diffusely) Extremity Common normals: normal to inspection Neuro Common normals: oriented x3, CN's II-XII intact bilaterally, moves all extremities and no focal motor deficits Results Labs Labs: Short CBC 07/02/24 Range/Units 13:01 WBC 8.9 (4.0-11.0) 10^3/uL Hgb 14.6 (12.0-16.0) g/dL Hct 41.9 (36.0-48.0) % Plt Count 261 (150-450) 10^3/uL Urine 07/02/24 Range/Units 08:51 Urine Color Yellow (YELLOW) Urine Clarity Clear (CLEAR) Urine pH 6.5 (5.0-9.0) Ur Specific [place] >=1.030 A (1.005-1.025) Urine Protein 30 A (NEG/TRACE) mg/dL Urine Glucose (UA) Negative (NEGATIVE) mg/dL Assessment and Plan Assessment and Plan (1) Constipation: (2) Asthma: (3) Hypertension: Qualifiers: Hypertension type: primary hypertension Qualified Code(s): I10 - Essential (primary) hypertension (4) Palpitations: Plan Admission findings: Elevated high blood pressure, signs of dehydration, constipation with moderately severe abdominal pain and tenderness on exam Moderate severe constipation-will try suppository, oral lactulose, consider r epeat x-ray in a.m. Sizsvttrilv-sol-odbm fluids, labs are pending, but urinalysis shows concentrated urine with low-level ketones consistent with dehydration Poor short-term memory-not too bad here today. Been off and on over the last month, will start patient on memantine Fall-patient on floor for a while according to the not sure how long, check labs, CT head Patient with near syncope states she gets that with standing, will check orthostatic vitals Cough and some shortness of breath lately-no chest pain-check viral titers, continue with home aerosol treatments L Mild acute exacerbation of asthma-continue with home aerosol treatments Generalized anxiety and depression disorder-continue with home medications Hypercholesterolemia continue with home medications Admission status: Patient is significant symptoms warranting observational status, will try to get her bowels to work she does have significant abdominal tenderness on my exam, medically necessary treatment may only span 1 midnights will start patient to follow-up as observational status, if will to improve and pain persisting, medically necessary treatment may span 2 midnights and will need to be changed to inpatient status Urinary Catheter Management Urinary Catheter Management Straight: Cath placed during this visit: yes Urethral indwelling: No Insertion date: 07/02/24
[2024-07-02 13:34] LABS: Creatine Kinase 80 U/L (26-192); Myoglobin 55 ng/mL (9-82)
[2024-07-02 13:35] LABS: Alanine Aminotransferase 17 U/L (14-59); Albumin Globulin Ratio 1.3; Albumin Level 4.4 g/dL (3.4-5.0); Alkaline Phosphatase 80 U/L (46-116); Aspartate Amino Transferase 17 U/L (15-37); BUN Creatinine Ratio 15.1; Bilirubin Total 0.6 mg/dL (0.2-1.0); Calcium 9.4 mg/dL (8.5-10.1); Carbon Dioxide 28.3 mmol/L (21.0-32.0); Chloride 98 mmol/L (98-107); Estimated GFR (African America >60 (>=60 mL/min/1.73m^2); Estimated GFR (Non-African Ame >60 (>=60 mL/min/1.73m^2); Globulin 3.5 g/dL; Glucose 107 mg/dL (74-106); Magnesium 2.1 mg/dL (1.8-2.4); Potassium 3.3 mmol/L (3.5-5.1); Sodium 134 mmol/L (136-145); Total Protein 7.9 g/dL (6.4-8.2)
[2024-07-02 13:39] LABS: Free T3 2.81 pg/mL (2.18-3.98); Thyroid Stimulating Hormone 0.709 uIU/mL (0.358-3.740)
[2024-07-02 13:47] LABS: Troponin I High Sensitivity 9.6 pg/mL (4.0-51.3)
[2024-07-02] MEDS: PANTOPRAZOLE SODIUM 40 MG VIAL IV (15:34)
[2024-07-02] MEDS: 0.9 % SODIUM CHLORIDE 1,000 ML 75 ML IV (15:34)
[2024-07-02] MEDS: KETOCONAZOLE 15 APPLIC TUBE TOPICAL ×2 (15:35→22:06)
[2024-07-02] MEDS: MEMANTINE HCL 7 MG CAP XR PO (15:35)
[2024-07-02] MEDS: DILTIAZEM HCL 60 MG TABLET PO ×2 (15:36→22:09)
[2024-07-02] MEDS: FLUCONAZOLE 100 MG TABLET PO (15:36)
[2024-07-02] MEDS: IPRATROPIUM/ALBUTEROL SULFATE 3 ML AMPUL.NEB IH ×2 (16:51→20:30)
[2024-07-02] MEDS: BUDESONIDE 0.5 MG/2 ML AMPULE NEB IH (20:31)
[2024-07-02] MEDS: ACETAMINOPHEN 500 MG TABLET 1000 MG PO (22:09)
[2024-07-02] MEDS: POTASSIUM CHLORIDE 10 MEQ ER TABLET 20 MEQ PO (22:09)
[2024-07-02] MEDS: ATORVASTATIN CALCIUM 40 MG TABLET PO (22:09)
[2024-07-02] MEDS: LACTULOSE 10 GM/15 ML UD CUP 30 GM PO (22:09)
[2024-07-03] VITALS (11 sets, daily range): BP systolic 107–150; BP diastolic 63–81; PULSE 72–90; TEMP 36.4–37.1; O2SAT 94–97
[2024-07-03] MEDS: DILTIAZEM HCL 60 MG TABLET PO ×3 (05:02→22:28)
[2024-07-03] MEDS: ACETAMINOPHEN 500 MG TABLET 1000 MG PO ×2 (05:02→14:56)
[2024-07-03] MEDS: 0.9 % SODIUM CHLORIDE 1,000 ML 75 ML IV ×2 (05:02→18:00)
[2024-07-03] MEDS: ALPRAZOLAM 0.25 MG TABLET PO (05:02)
[2024-07-03] MEDS: IPRATROPIUM/ALBUTEROL SULFATE 3 ML AMPUL.NEB IH ×4 (05:09→20:21)
[2024-07-03 05:30] LABS: Basophils Percent Auto 0.5 % (0.2-2.0); Eosinophils Absolute Auto 0.1 10^3/uL (0.0-0.7); Eosinophils Percent Auto 1.1 % (0.9-7.0); Hematocrit 38.2 % (36.0-48.0); Hemoglobin 13.4 g/dL (12.0-16.0); Immature Granulocytes Abs Auto 0.01 10^3/uL (0.00-0.03); Immature Granulocytes Pct Auto 0.1 % (0.0-0.5); Lymphocytes Absolute Auto 1.6 10^3/uL (1.2-3.8); Lymphocytes Percent Auto 21.4 % (20.5-60.0); Mean Corpuscular HGB Conc 35.1 g/dL (29.9-35.2); Mean Corpuscular Hemoglobin 32.1 pg (26.7-34.0); Mean Corpuscular Volume 91.6 fL (81.0-99.0); Monocytes Absolute Auto 0.9 10^3/uL (0.3-0.8); Neutrophils Absolute Auto 4.8 10^3/uL (1.4-6.5); Neutrophils Percent Auto 64.9 % (43.0-75.0); Platelet Count 225 10^3/uL (150-450); Red Blood Count 4.17 10^6/uL (4.20-5.40); Red Cell Distribution Width 12.2 % (11.0-15.0); White Blood Count 7.4 10^3/uL (4.0-11.0)
[2024-07-03 05:41] LABS: Anion Gap 15.3; Calcium 8.8 mg/dL (8.5-10.1); Carbon Dioxide 24.5 mmol/L (21.0-32.0); Chloride 99 mmol/L (98-107); Estimated GFR (African America >60 (>=60 mL/min/1.73m^2); Estimated GFR (Non-African Ame >60 (>=60 mL/min/1.73m^2); Glucose 105 mg/dL (74-106); Potassium 3.8 mmol/L (3.5-5.1); Sodium 135 mmol/L (136-145)
--- NOTE | 2024-07-03 08:42 | P.PN_ITS ---
Progress Note: Subjective Subjective Interval history: Pretty alert this morning, did not recall my name, he is oriented to place Exam Constitutional Vital Signs, click to edit/add: Last Vital Signs Temp 97.6 F 07/03/24 04:00 Pulse 72 07/03/24 05:09 Resp 16 07/03/24 05:09 BP 150/81 H 07/03/24 04:00 Pulse Ox 96 07/03/24 05:09 O2 Del Method Room Air 07/03/24 05:09 Documenting provider has reviewed patient's vital signs: yes Common normals: no apparent distress Chest Common normals: inspection of chest normal Respiratory Common normals: normal respiratory effort and no retractions Cardio Common normals: regular rate and regular rhythm GI Common normals: Normal to inspection, nondistended, normoactive bowel sounds present and soft to palpation; tender Palpation: tender (Diffusely) Extremity Common normals: normal to inspection Neuro Common normals: oriented x3, CN's II-XII intact bilaterally, moves all extremities and no focal motor deficits Progress Note: Objective Labs Labs: Short CBC 07/02/24 07/03/24 Range/Units 13:01 05:15 WBC 8.9 7.4 (4.0-11.0) 10^3/uL Hgb 14.6 13.4 (12.0-16.0) g/dL Hct 41.9 38.2 (36.0-48.0) % Plt Count 261 225 (150-450) 10^3/uL BMP 07/02/24 07/03/24 13:01 05:15 Sodium 134 L 135 L Potassium 3.3 L 3.8 Chloride 98 99 Carbon Dioxide 28.3 24.5 BUN 13.0 10.0 Creatinine 0.86 0.77 Glucose 107 H 105 Calcium 9.4 8.8 Cardiac Enzymes 07/02/24 Range/Units 13:01 Total Creatine Kinase 80 (26-192) U/L Liver Function 07/02/24 Range/Units 13:01 Total Bilirubin 0.6 (0.2-1.0) mg/dL AST 17 (15-37) U/L ALT 17 (14-59) U/L Alkaline Phosphatase 80 (46-116) U/L Albumin 4.4 (3.4-5.0) g/dL Urine 12/29/24 Range/Units 08:51 Urine Color Yellow (YELLOW) Urine Clarity Clear (CLEAR) Urine pH 6.5 (5.0-9.0) Ur Specific [place] >=1.030 A (1.005-1.025) Urine Protein 30 A (NEG/TRACE) mg/dL Urine Glucose (UA) Negative (NEGATIVE) mg/dL Progress Note: A&P Assessment and Plan (1) Constipation: (2) Asthma: (3) Hypertension: Qualifiers: Hypertension type: primary hypertension Qualified Code(s): I10 - Essential (primary) hypertension (4) Palpitations: Plan Admission findings: Elevated high blood pressure, signs of dehydration, constipation with moderately severe abdominal pain and tenderness on exam Moderate severe constipation-will try suppository, oral lactulose, consider repeat x-ray in a.m.-will review with nurses effectiveness Jgjdxpbymqp-kdg-chix fluids, labs are pending, but urinalysis shows concentrated urine with low-seems stable Poor short-term memory-not too bad here today. Been off and on over the last month, will start patient on memantine Fall-patient on floor for a while according to the not sure how long, check labs, CT head Patient with near syncope states she gets that with standing, will check orthostatic vitals-check with physical therapy on possibility for rehab Cough and some shortness of breath lately-no chest pain-check viral titers, continue with home aerosol treatments Mild acute exacerbation of asthma-continue with home aerosol treatments Generalized anxiety and depression disorder-continue with home medications Hypercholesterolemia continue with home medications Urinary Catheter Management Urinary Catheter Management Straight: Cath placed during this visit: yes Urethral indwelling: No Insertion date: 07/02/24
--- NOTE | 2024-07-03 09:22 | CM.NOTE ---
Rounds made with Dr. Ventura, pt continues to c/o rectal pain. Dr. Ventura discussed with pt different options for pain control and will change some medications. PT and OT will evaluate pt today for further discharge planning.
--- NOTE | 2024-07-03 10:00 | CM.NOTE ---
Medicare Outpatient Observation Notice discussed with pt, pt verbalizes understanding and signs paper. Original given to pt and copy placed in pt's chart.
[2024-07-03] MEDS: TRIAMCINOLONE ACETONIDE 0.1% CREAM 15 GM TUBE 1 APPLIC TOPICAL ×2 (10:30→22:28)
[2024-07-03] MEDS: FLUOXETINE HCL 20 MG CAPSULE 40 MG PO (10:31)
[2024-07-03] MEDS: LACTULOSE 10 GM/15 ML UD CUP 30 GM PO ×2 (10:31→22:28)
[2024-07-03] MEDS: FLUCONAZOLE 100 MG TABLET PO (10:32)
[2024-07-03] MEDS: POTASSIUM CHLORIDE 10 MEQ ER TABLET 20 MEQ PO ×2 (10:32→22:28)
[2024-07-03] MEDS: GUAIFENESIN DM 600-30 MG 12 HR TAB 1 TAB PO (10:32)
[2024-07-03] MEDS: MEMANTINE HCL 7 MG CAP XR PO (10:32)
[2024-07-03] MEDS: KETOCONAZOLE 15 APPLIC TUBE TOPICAL ×2 (10:34→22:29)
--- NOTE | 2024-07-03 10:52 | CM.NOTE ---
Discussed with pt and regarding PT recommendations for HH services, both in agreement for services. Pt's has had [facility] HH in the past so they would like to go back with [facility]. New referral sent.
[2024-07-03] MEDS: BUDESONIDE 0.5 MG/2 ML AMPULE NEB IH ×2 (11:48→20:21)
--- NOTE | 2024-07-03 12:19 | CM.NOTE ---
[facility] unable to accept pt, referral sent to [address] and are able to accept patient.
--- NOTE | 2024-07-03 13:00 | CM.NOTE ---
Updated pt that [facility] was unable to accept and that [address] was able to accept.
[2024-07-03] MEDS: PANTOPRAZOLE SODIUM 40 MG VIAL IV (16:17)
[2024-07-03] MEDS: ATORVASTATIN CALCIUM 40 MG TABLET PO (22:28)
[2024-07-04 03:36] VITALS: BP 133/87; BP 153/65; BP 163/92; PULSE 82; PULSE 84; PULSE 86
[2024-07-04 03:38] VITALS: BP 153/65; PULSE 82; TEMP 36.6; O2SAT 94
--- NOTE | 2024-07-04 03:44 | PC.NURSE ---
Patient on toilet to have BM. Stated she felt dizzy. BP checked 157/91, HR 84 pulse ox 98%. Patient returned to bed. BP 168/84 HR 78, pulse ox 96%. 5 minute later rechecked 161/80. Will notify
[2024-07-04 04:12] VITALS: BP 154/81
--- NOTE | 2024-07-04 04:12 | PC.NURSE ---
Patients Bp improved 154/81
[2024-07-04] MEDS: DILTIAZEM HCL 60 MG TABLET PO (05:47)
[2024-07-04 06:10] LABS: Basophils Percent Auto 0.7 % (0.2-2.0); Eosinophils Absolute Auto 0.1 10^3/uL (0.0-0.7); Eosinophils Percent Auto 1.3 % (0.9-7.0); Hematocrit 37.5 % (36.0-48.0); Hemoglobin 12.9 g/dL (12.0-16.0); Immature Granulocytes Abs Auto 0.01 10^3/uL (0.00-0.03); Immature Granulocytes Pct Auto 0.2 % (0.0-0.5); Lymphocytes Absolute Auto 1.4 10^3/uL (1.2-3.8); Lymphocytes Percent Auto 23.8 % (20.5-60.0); Mean Corpuscular HGB Conc 34.4 g/dL (29.9-35.2); Mean Corpuscular Hemoglobin 31.9 pg (26.7-34.0); Mean Corpuscular Volume 92.8 fL (81.0-99.0); Mean Platelet Volume 10.5 fL (9.5-13.5); Monocytes Absolute Auto 0.7 10^3/uL (0.3-0.8); Monocytes Percent Auto 11.9 % (1.7-12.0); Neutrophils Absolute Auto 3.7 10^3/uL (1.4-6.5); Neutrophils Percent Auto 62.1 % (43.0-75.0); Platelet Count 202 10^3/uL (150-450); Red Blood Count 4.04 10^6/uL (4.20-5.40); Red Cell Distribution Width 12.5 % (11.0-15.0)
[2024-07-04 06:25] LABS: Anion Gap 14.5; BUN Creatinine Ratio 7.9; Calcium 8.8 mg/dL (8.5-10.1); Carbon Dioxide 21.3 mmol/L (21.0-32.0); Chloride 107 mmol/L (98-107); Estimated GFR (African America >60 (>=60 mL/min/1.73m^2); Estimated GFR (Non-African Ame >60 (>=60 mL/min/1.73m^2); Glucose 95 mg/dL (74-106); Potassium 3.8 mmol/L (3.5-5.1); Sodium 139 mmol/L (136-145)
[2024-07-04] MEDS: 0.9 % SODIUM CHLORIDE 1,000 ML 75 ML IV (07:17)
[2024-07-04 07:30] VITALS: BP 125/90; BP 137/90; BP 143/79; PULSE 87; PULSE 95
[2024-07-04 07:36] VITALS: BP 143/79; PULSE 95; TEMP 37.3; O2SAT 95
[2024-07-04] MEDS: ACETAMINOPHEN 500 MG TABLET 1000 MG PO (07:41)
--- NOTE | 2024-07-04 09:01 | CM.NOTE ---
Rounds made with Dr. Ventura, pt will discharge to home this afternoon and f/u with PCP next week. Pt continues to c/o rectal pain, exam completed per Dr. Ventura (no external hemorrhoids noted).
[2024-07-04] MEDS: MEMANTINE HCL 7 MG CAP XR PO (09:33)
[2024-07-04] MEDS: POTASSIUM CHLORIDE 10 MEQ ER TABLET 20 MEQ PO (09:33)
[2024-07-04] MEDS: GUAIFENESIN DM 600-30 MG 12 HR TAB 1 TAB PO (09:33)
[2024-07-04] MEDS: FLUOXETINE HCL 20 MG CAPSULE 40 MG PO (09:33)
[2024-07-04] MEDS: FLUCONAZOLE 100 MG TABLET PO (09:33)
[2024-07-04] MEDS: TRIAMCINOLONE ACETONIDE 0.1% CREAM 15 GM TUBE 1 APPLIC TOPICAL (09:34)
[2024-07-04] MEDS: KETOCONAZOLE 15 APPLIC TUBE TOPICAL (09:34)
[2024-07-04 09:41] LABS: BOX Test Reference Lab FIRELANDS
--- NOTE | 2024-07-04 09:55 | REH.PTDLY ---
Physical Therapy Daily Note PT Daily Note/Assess Start: 07/03/24 09:46 Freq: Status: Active Protocol: Document 07/04/24 09:48 CHELY (Rec: 07/04/24 09:55 MARIEELMER [id number]) Physical Therapy Daily Note/Assessment Time In 09:29 Time Out 09:43 Subjective Pt reports pain at rectum, but improved as she just had some pain medicine for it. Rating as a 4/10. Agreeable to therapy. Pt states she gets to go home today. Therapeutic Exercise 5 Minutes (minutes) Therapeutic Exercise 0 Units Therapeutic Exercise Instructed in standing B LE marching, hip flex, and Treatment mini squats 10x ea followed by seated LAQ and hip add squeeze 10x ea for improved strength. Therapeutic Activity 9 Minutes (minutes) Therapeutic Activity 1 Units Therapeutic Activity Supine to sit transfer SBA. Sit to stand transfer from Comments bedside, CGA. Gait training with RW SBA/CGA 155 feet with no LOB noted and good awareness of proximity to RW during gait. Pt stands statically at chair for 2 mins with UE support while nursing applies cream. Pt has good safety awareness to reach back for chair upon sitting. Total Therapy 14 Minutes Total Physical 1 Therapy Units Daily Note Summary Pt does well with transfers and gait this morning, pt utilizes RW. States she has a SC and a RW at home that she can use. Progressed with standing exs using UE support and fatigue noted with mini squats. Pt is to be DC to home today per nursing.
--- NOTE | 2024-07-04 10:14 | SWNOTE1 ---
SW stopped in to speak with pt in regards to discharge. Pt's was in room as well. Pt voiced to SW that was the greatest man in the world and he takes good care of her. Pt's did voice concerns about her constipation/pain. Pt voiced she has had this before. Pt did voice she had to use the restroom, director industrial nursing came in room to assist. SW did assure pt and that home health will be coming in to assist pt with transition home. Pt's asked how often and stated he has had HH in the past. SW explained that a nurse will come in and assess and determine how often. Pt and voiced understanding and voiced appreciation. They are aware pt is being discharged today. Pt did ask about dc meds, SW explained that the nurse will review with her and at discharge. SW faxed CRF and dc med rec to [facility] .
--- NOTE | 2024-07-04 12:59 | P.DS_ITS ---
DS: Providers Provider Date of admission: 07/02/24 11:34 Primary care physician: Shaheed Crow MD Consults: 07/02/24 Consult to Dietitian Routine Reason for consultation: weight loss 07/02/24 12:38 Occupational Therapy Eval and Treat Routine Reason for consultation: Only if needed for Rehab Has provider been notified: No Physical Therapy Eval and Treat Routine Reason for consultation: Eval and Treat Has provider been notified: No DS: Diagnosis Discharge Diagnosis (1) Constipation: (2) Asthma: (3) Hypertension: Qualifiers: Hypertension type: primary hypertension Qualified Code(s): I10 - Essential (primary) hypertension (4) Palpitations: Plan Admission findings: Elevated high blood pressure, signs of dehydration, constipation with moderately severe abdominal pain and tenderness on exam Moderate severe constipation-will try suppository, oral lactulose, consider repeat x-ray in a.m.-will review with nurses effectiveness Cekuemfdeqx-pkl-fjtc fluids, labs are pending, but urinalysis shows concentrated urine with low-seems stable Poor short-term memory-not too bad here today. Been off and on over the last month, will start patient on memantine Fall-patient on floor for a while according to the not sure how long, check labs, CT head Patient with near syncope states she gets that with standing, will check orthostatic vitals-check with physical therapy on possibility for rehab Cough and some shortness of breath lately-no chest pain-check viral titers, continue with home aerosol treatments Mild acute exacerbation of asthma-continue with home aerosol treatments Generalized anxiety and depression disorder-continue with home medications Hypercholesterolemia continue with home medications DS: Summary Hospital Course Hospital Course: Patient presented to the emergency room with significant findings of dehydration, perineal pain, difficulty ambulating secondary to the perineal pain, on exam was found to have significant yeast dermatitis in the perineal area to the point that it is difficulty for her to ambulate. She is treated with triamcinolone cream ketoconazole cream and oral Diflucan, she did improve slowly she still has some hesitancy with ambulation secondary to pain secondary to the yeast dermatitis, at this point she is ambulated safely with physical therapy, she be discharged to home in improving condition. Medications see list. Follow-up with her PCP within the next week. Status at Discharge Overall status at discharge: patient is not back to baseline Time Spent with Patient Time attestation: Total time spent providing and/or coordinating discharge services: Time spent: greater than 30 minutes Exam Constitutional Vital Signs, click to edit/add: Last Vital Signs Temp 99.2 F 07/04/24 07:36 Pulse 95 H 07/04/24 07:36 Resp 18 07/04/24 07:45 BP 143/79 H 07/04/24 07:36 Pulse Ox 95 07/04/24 07:36 O2 Del Method Room Air 07/04/24 07:36 Documenting provider has reviewed patient's vital signs: yes Common normals: no apparent distress Chest Common normals: inspection of chest normal Respiratory Common normals: normal respiratory effort and no retractions Cardio Common normals: regular rate and regular rhythm GI Common normals: Normal to inspection, nondistended, normoactive bowel sounds present and soft to palpation; tender Palpation: tender (Diffusely) Extremity Common normals: normal to inspection Neuro Common normals: oriented x3, CN's II-XII intact bilaterally, moves all extremities and no focal motor deficits DS: Data Data Completed and Pending Labs on day of discharge: Labs from last 24 hours 07/04/24 07/02/24 05:35 08:57 WBC 6.0 RBC 4.04 L Hgb 12.9 Hct 37.5 MCV 92.8 MCH 31.9 MCHC 34.4 RDW 12.5 Plt Count 202 MPV 10.5 Neut % (Auto) 62.1 Lymph % (Auto) 23.8 [place] % (Auto) 11.9 Eos % (Auto) 1.3 Baso % (Auto) 0.7 Neut # (Auto) 3.7 Lymph # (Auto) 1.4 [place] # (Auto) 0.7 Eos # (Auto) 0.1 Baso # (Auto) 0.0 Abs Immat Gran (auto) 0.01 Imm/Tot Granulo (auto) 0.2 Sodium 139 Potassium 3.8 Chloride 107 Carbon Dioxide 21.3 Anion Gap 14.5 BUN 5.0 L Creatinine 0.63 Est GFR ( Amer) >60 Est GFR (Non-Af Amer) >60 BUN/Creatinine Ratio 7.9 Glucose 95 Calcium 8.8 Ref Lab Order Date 07/02/24 Ref Lab Test Name Urine culture Ref Test Addition [facility] Discharge Plan Discharge Disposition: Home Health Service Discharge Medications: New fluconazole 100 mg Tablet 100 mg PO QD Qty: 10 0RF triamcinolone acetonide 0.1 % Cream 1 applic topical BID Qty: 80 11RF ketoconazole 2 % Cream 1 applic topical BID Qty: 60 11RF lactulose 10 gram/15 mL (15 mL) Solution 30 g PO BID Qty: 600 11RF memantine 7 mg Capsule,Sprinkle,Er 24hr 7 mg PO QD Qty: 30 11RF Continued albuterol sulfate 90 mcg/actuation HFA aerosol inhaler 2 inh inhalation Q6H PRN (Reason: shortness of breath or wheezing) Trelegy Ellipta 100-62.5-25 mcg blister with device 1 inh inhalation DAILY losartan-hydrochlorothiazide [Hyzaar] 100-25 mg tablet 1 tab PO DAILY omeprazole 40 mg capsule,delayed release(DR/EC) 40 mg PO DAILY rosuvastatin [Crestor] 10 mg tablet 10 mg PO DAILY potassium chloride 20 mEq tablet extended release 20 meq PO BID alprazolam 0.5 mg tablet 0.25 mg PO TID PRN (Reason: anxiety) diltiazem HCl 60 mg tablet 60 mg PO TID fluoxetine 40 mg capsule 40 mg PO DAILY ipratropium bromide 0.02 % solution 2.5 ml inhalation Q8H PRN (Reason: shortness of breath or wheezing) Qty: 75 0RF levalbuterol HCl 1.25 mg/3 mL solution for nebulization 1.25 mg inhalation Q8H PRN (Reason: shortness of breath or wheezing) Qty: 75 0RF Mucinex DM 30-600 mg tablet extended release 12 hr 1 tab PO DAILY Qty: 10 0RF Print Language: Yi Patient Instructions: Fluconazole (By mouth), Lactulose (By mouth), Memantine (By mouth) Stranding Supervisor/Ream Cutter Instructions: Discharge with [address] [facility]. They should contact within 48 hours of discharge Forms: Portal Instructions Follow Up Appointments: Please call Dr. Crow to schedule a follow up appt. for 5-7 days following discharge. [phone] Discharge Date/Time: 07/04/24 11:34
--- NOTE | 2024-07-06 14:36 | CM.DCFOLLOWU ---
Person spoke with: Louise How are you feeling? Good getting better slowly How is your pain? No pain Did you understand your discharge instructions? Yes Do you have any questions about your discharge instructions? No Were you given any prescriptions at discharge? Yes Were you able to get your prescriptions filled? 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 Yes Do you have any questions about your follow up appointment and do you plan to keep your follow up appointment? Had appointment today Is there anything else that you would like to discuss? No Questions/Comments/Concerns/Other:
== END 2024-07-04 11:34 | disposition home health service (06) ==
LOC: ER 10:05 → MS 11:49
PROVIDERS: Admitting Provider Family Medicine; Emergency Provider Emergency Medicine Emergency Medical Services; PCP Family Medicine; Visit Provider Family Medicine
DX: E86.0 Dehydration (principal); K59.00 Constipation, unspecified; R10.2 Pelvic and perineal pain; I10 Essential (primary) hypertension; R00.2 Palpitations; R55 Syncope and collapse; Z90.710 Acquired absence of both cervix and uterus; Z90.49 Acquired absence of other specified parts of digestive tract; R41.3 Other amnesia; J45.901 Unspecified asthma with (acute) exacerbation; Z91.81 History of falling; R05.9 Cough, unspecified; R06.02 Shortness of breath; F32.A Depression, unspecified; F41.1 Generalized anxiety disorder; E78.00 Pure hypercholesterolemia, unspecified; B37.2 Candidiasis of skin and nail
CPT/HCPCS: 36415; 70450; 74022; 80048; 80053; 81001; 82550; 83690; 83735; 83874; 83880; 84436; 84443; 84481; 84484; 85025; 87086; 87804; 87811; 94640; 94761; 96361; 96374; 96376; 97161; 97165; 97530; 99285; G0378

== ENCOUNTER 2024-08-29 09:43 | Outpatient (OUT) | payer MEDICARE, SELFPAY ==
--- NOTE | 2024-08-29 09:46 | US_ITS ---
The [address] [address] Patient Name: KOLTON NAPIER MRN: [id number] date: 1945 Sex: F Assigned Patient Location: [place] Current Patient Location: [place] Accession/Order Number: [id number] Exam Date: 08/29/2024 12:23 Report Date: 08/29/2024 12:36 At the request of: CARRIE DE LA TORRE MD Procedure: US thyroid THYROID ULTRASOUND CLINICAL DATA: Thyroid nodule seen on CT COMPARISON: None The right thyroid lobe measures 4.7 x 1.3 x 2.3 cm . The left lobe measures 3.3 x 1.0 x 0.9 cm. The isthmus measures 2 mm. The thyroid echogenicity is heterogeneous and there is also mild hyperemia. At the mid pole on the right, there is a mixed echogenicity nodule with suspected associated calcification measuring 9 x 10 x 12 mm (TI-RADS 4). At the inferior pole on that side, there is a hypoechoic nodule measuring 12 x 10 x 14 mm (TI-RADS 4). At the inferior pole toward the isthmus, there is another mixed echogenicity nodule measuring 17 x 15 x 13 mm (TI-RADS 2). At the superior pole on the left, there is a superficial hypoechoic nodule measuring 8 x 5 x 7 mm (TI-RADS 4). US/US thyroid IMPRESSION: SMALL BILATERAL TI-RADS 4 NODULES, DESCRIBED. DUE TO THEIR SIZE, ULTRASOUND FOLLOW-UP IN ONE YEAR IS SUGGESTED. Impression dictated by: May Gallegos M.D.08/29/2024 12:36 PM Dictation Location[facility] Electronically authenticated by: [id number] Y Date: 08/29/2024 12:36
--- OUTSIDE RECORDS SUMMARY | 2024-08-29 09:50 | XMS_ITS | CCD ---
Author Organization [facility] Care Team Providers Care Nursing Home Admissions Director Name Role Phone ADORE, DR MARIALUISA Anguiano [...] DR MARIALUISA Anguiano Admitting Unavailable ZIEBER, DR KARL Avery Consulting Unavailable WEST, DR MARIALUISA Anguiano Consulting Unavailable NADERER, DR SHAHEED Thomas Primary Care Unavailable WEST, DR MARIALUISA Anguiano Attending Unavailable WEST, DR MARIALUISA Anguiano Admitting Unavailable ZIEBER, DR KARL Avery Consulting Unavailable WEST, DR MARIALUISA Anguiano Consulting Unavailable NADERER, DR SHAHEED Thomas Primary Care Unavailable WEST, DR MARIALUISA Anguiano Attending Unavailable WEST, DR MARIALUISA Anguiano Admitting Unavailable ZIEBER, DR KARL Avery Consulting Unavailable WEST, DR MARIALUISA Anguiano Consulting Unavailable NADERER, DR SHAHEED Thomas Primary Care Unavailable WEST, DR MARIALUIAS Anguiano Attending Unavailable WEST, DR MARIALUISA Anguiano Admvic Unavailable WEST, DR MARIALUISA Anguiano Consulting Unavailable NADERER, DR SHAHEED Thomas Primary Care Unavailable WEST, DR MARIALUISA Anguiano Attending Unavailable WEST, DR MARIALUISA Anguiano Admitting Unavailable ZIEBER, DR KARL Avery Consulting Unavailable WEST, DR MARIALUISA Anguiano Consulting Unavailable NADERER, DR SHAHEED Thomas Primary Care Unavailable WEST, DR MARIALUISA Anguiano Attending Unavailable WEST, DR MARIALUISA Anguiano Admitting Unavailable ZIEBER, DR KARL Avery Consulting Unavailable NADERER, DR SHAHEED Thomas [...] De La Torre MD Primary Care Provider CHARLOTTETAFREDERIC, EVE Attending Unavailable CHARLOTTETAHAWJud, EVE Attending Unavailable NADEREGena, SHAHEED Primary Care Unavailable JENA MAS Attending Unavailable BRIA, ELIU Shabazz Attending Unavailable MEENAEREGena, SHAEHED Referring Unavailable NADEREGena, SHAHEED Primary Care Unavailable ELIU GALINDO Referring Unavailable NADEREGena, SHAHEED Primary Care Unavailable Shaheed De La Torre MD Primary Care Provider ROMEL BAPTISTE Attending Unavailable AICHHOLSanjay, JANETH Referring Unavailable NADERER, SHAHEED Attending Unavailable NADERER, SHAHEED Attending Unavailable NADERER, SHAHEED Attending Unavailable NADERER, SHAHEED Attending Unavailable NADERER, SHAHEED Attending Unavailable AICHHOLZ, JANETH Attending Unavailable Michael Rodriguez Attending Provider [phone] Romel Baptiste DO Attending Provider [phone] Shaheed De La Torre MD Primary Care Provider Michael Rodriguez Attending Unavailable Michael Rodriguez Admitting Unavailable Romel Baptiste Attending Unavailab Romel Mackay Admitting Unavailab Shaheed Draper Primary Care Unavailable Allergies Allergy Classification Reported Allergen(s) Allergy Type Date of Onset Reaction(s) Facility (1 source) Albuterol Drug Allergy [facility] (1 source) Penicillin Drug Allergy [facility] (20 sources) Albuterol Drug Allergy 10-06-19 19 Palpitations [facility] (20 sources) Cephalosporins (Antibiotic) Drug Allergy 06-09-20 23 Diarrhea, GI intolerance [facility] (20 sources) Penicillins; Translations: [PENICILLINS] Drug Allergy 12-26-19 18 GI intolerance [facility] (20 sources) cefdinir; Translations: [CEFDINIR] Drug Allergy 07-17-19 21 Diarrhea, GI intolerance [facility] (5 sources) Albuterol; Translations: [ALBUTEROL SULFATE] Drug Allergy 10-06-19 19 Tachycardia [facility] (1 source) cefdinir Drug Allergy 07-17-19 21 Diarrhea, Vomiting [facility] Work Phone: (1 source) Penicillins Propensity to adverse reactions to drug 12-26-19 18 Nausea [facility] Medications Current Medications Medication Drug Class(es) Dates Sig (Normalized) Sig (Original) albuterol 0.83 mg/ml inhalation solution (3 sources) beta2-Adrenergic Agonist Start: 04-28-2018 albuterol (PROVENTIL,VENTOLI N) nebulizer solution 2.5 mg Start: 03-17-2018 VENTOLIN HFA 9 0 mcg/actuation inhaler Inhale 2 puffs as needed for shortness of breath. 03/17/2018 Active ALPRAZolam 0.5 mg oral tablet (20 sources) Benzodiazepine Start: 02-17-2024 End: 08-11-2024 take 1 tablet by mouth three times daily as needed for anxiety ALPRAZolam (Xanax) 0.5 MG tablet Indications: LAUREL (generalized anxiety disorder) (CMS/HCC) Take 1 tablet (0.5 mg) by mouth 3 (three) times a day as needed for anxiety 90 tablet 07/12/2024 Active Start: 11-23-2022 End: 10-02-2023 take 0.5 tablet by mouth three times daily as needed for anxiety ALPRAZolam (Xanax) 0.5 MG tablet Indications: LAUREL (generalized anxiety disorder) (CMS/HCC) Take 0.5 tablets (0.25 mg) by mouth 3 (three) times a day as needed for anxiety 90 tablet 0 08/03/2023 10/02/2023 Active benzonatate 200 mg oral capsule (20 sources) Non-narcotic Antitussive Start: 02-26-2021 End: 02-21-2025 take 1 capsule by mouth three times daily as needed for cough benzonatate (Tessalon) 200 MG capsule Indications: Chronic cough Take 1 capsule (200 mg) by mouth 3 (three) times a day as needed for cough Do not crush or chew. 90 capsule 3 02/22/2024 02/21/2025 Active calcium polycarbophil 625 mg oral tablet (20 sources) Start: 09-15-2023 take 2 tablets by mouth once daily polycarbophil (FiberCon) 625 MG tablet Indications: Chronic idiopathic constipation Take 2 tablets (1,250 mg) by mouth Daily 60 tablet 5 09/15/2023 Active ciprofloxacin 500 mg oral tablet (3 sources) Quinolone Antimicrobial Start: 06-29-2024 End: 07-07-2024 take 1 tablet by mouth in the morning ciprofloxacin (Cipro) 500 MG tablet Take 500 mg by mouth in the morning and 500 mg in the evening. 06/29/2024 07/07/2024 Active cyclobenzaprine hydrochloride 10 mg oral tablet (20 sources) Muscle Relaxant Start: 02-17-2024 take 1 [...] Active dicyclomine hydrochloride 20 mg oral tablet (20 sources) Anticholinergic Start: 02-17-2024 take 1 tablet by mouth four times daily as needed dicyclomine (Bentyl) 20 MG tablet Indications: Viral gastroenteritis Take 1 tablet (20 mg) by mouth 4 (four) times a day as needed (Abdominal cramping) 30 tablet 1 02/17/2024 Active dilTIAZem hydrochloride 30 mg oral tablet (20 sources) Calcium Channel Marisa Start: 05-30-2018 take 1 tablet by mouth three times daily dilTIAZem (CARDIZEM) 30 mg tablet Take 1 tablet (30 mg total) by mouth 3 (three) times a day. 05/30/2018 Active take 1 tablet by aissatou th in the morning, then take 1 tablet by mouth in the evening, then take 1 tablet by mouth at bedtime dilTIAZem (Cardizem) 60 MG immediate release tablet Take 1 tablet by mouth in the morning and 1 tablet in the evening and 1 tablet before bedtime. Active fluconazole 100 mg oral tablet (11 sources) Azole Antifungal Start: 07-04-2024 End: 08-22-2024 fluconazole (Diflucan) 100 MG tablet 07/04/2024 08/22/2024 Discontinued FLUoxetine 40 mg oral capsule (20 sources) Serotonin Reuptake Inhibitor Start: 02-03-2024 End: [...] the morning. 30 capsule 3 06/10/2023 Active take 1 capsule by mo uth in the morning, then take 0.5 capsule by mouth once daily FLUoxetine (PROzac) 20 mg capsule Take 1 capsule (20 mg total) by mouth in the morning. Half tab daily . Active 30 actuat fluticasone furoate 0.1 mg/actuat / umeclidinium 0.0625 mg/actuat / vilanterol 0.025 mg/actuat dry powder inhaler (20 sources) Anticholinergic, Corticosteroid, beta2-Adrenergic Agonist Start: 01-14-2023 Vgyjftjhspk-Iklhgrfjn-Tvcvuu (Trelegy Ellipta) 100-62.5-25 MCG/ACT aerosol powder 01/14/2023 Active End: 08-19-2023 take 1 puff(s) by inhalation in the morning Qpzpjgemnvr-Lxrgbnwtz-Rorgtv (Trelegy Ellipta) 100-62.5-25 MCG/ACT aerosol powder Inhale 1 puff in the morning. 0 08/19/2023 Discontinued (Therapy completed) hydroCHLOROthiazide 25 mg / losartan potassium 100 mg oral tablet (20 sources) Thiazide Diuretic, Angiotensin 2 Receptor Marisa Start: 07-03-2024 End: 07-03-2025 take 1 tablet by mouth once daily losartan-hydroCHLOROthiazide (Hyzaar) 100-25 MG tablet Indications: Benign hypertension (CMS/HCC) Take 1 tablet by mouth Daily 90 tablet 3 07/03/2024 07/03/2025 Active Start: 07-09-2023 End: 07-08-2024 take 1 tablet by mouth in the morning losartan-hydroCHLOROthiazide (Hyzaar) 10 0-25 MG tablet Indications: Benign hypertension (CMS/HCC) Take 1 tablet by mouth in the morning. 90 tablet 3 07/09/2023 07/08/2024 Active take 1 tablet by aissatou th once in the morning losartan-hydroCHLOROthiazide (HYZAAR) 10 0-25 mg per tablet Take 1 tablet by mouth in the morning. Active ipratropium bromide 0.2 mg/ml inhalation solution (3 sources) Anticholinergic ipratropium (Atrovent) 0.02 % nebulizer solution Take 3 mL by nebulization every 6 (six) hours 0 Active ketoconazole 20 mg/ml topical cream (12 sources) Azole Antifungal Start: 07-04-20 24 ketoconazole (NIZOral) 2 % cream Apply 1 application topically in the morning and 1 application before bedtime. 07/04/2024 Active lactulose 667 mg/ml oral solution (2 sources) Osmotic Laxative Start: 07-04-20 24 take 30 g by mouth in the morning lactulose (Enulose) 10 GM/15ML solution oral solution Take 30 g by mouth in the morning and 30 g before bedtime. 07/04/2024 Active loratadine 10 mg oral tablet (20 sources) Start: 04-04-20 24 End: 04-04-20 25 take 1 tablet by mouth once daily loratadine (Claritin) 10 MG tablet Indications: Seasonal allergic rhinitis due to pollen Take 1 tablet (10 mg) by mouth Daily 30 tablet 11 04/04/2024 04/04/2025 Active memantine hydrochloride 10 mg oral tablet (14 sources) I-tebghj-F-aspartate Receptor Antagonist Start: 08-09-19 End: 08-09-19 26 take 1 tablet by mouth in the morning memantine (Namenda) 10 MG tablet Indications: Moderate late onset Alzheimer's dementia, unspecified whether behavioral, psychotic, or mood disturbance or anxiety (CMS/HCC) Take 1 tablet (10 mg) by mouth in the morning and 1 tablet (10 mg) before bedtime. 240 tablet 2 08/09/2024 08/09/2025 Active End: 08-09-2024 take 1 tablet by mouth once daily Memantine HCl ER 7 MG capsule sustained-release 24 hr Take 1 tablet by mouth Daily 08/09/2024 Discontinued (Therapy completed) nystatin 100 unt/mg topical powder (20 sources) Polyene Antifungal nystatin (Myc ostatin) 603520 UNIT/GM powder Apply 1 application topically in the morning and 1 application before bedtime. Active omeprazole 40 mg delayed release oral capsule (20 sources) Proton Pump Inhibitor Start: 11-15-19 End: 11-15-19 take 1 capsule by mouth before mealtime omeprazole (PriLOSEC) [address] capsule Indications: GERD without esophagitis Take 1 capsule (40 mg) by mouth in the morning. Take before meals. Do not crush or chew.. 30 capsule 11/15/2023 11/14/2024 Active ondansetron 4 mg disintegrating oral tablet (20 sources) Serotonin-3 Receptor Antagonist Start: 02-17-20 take 1 tablet by mouth every eight hours for nausea ondansetron ODT (Zofran-ODT) 4 MG disintegrating tablet Indications: Viral gastroenteritis Take 1 tablet (4 mg) by mouth every 8 (eight) hours if needed for nausea or vomiting 20 tablet 1 02/17/2024 Active potassium chloride 20 meq extended release oral tablet (20 sources) Start: 10-06-19 End: 10-06-19 take 1 tablet by mouth in the [...] 20 mEq before bedtime. 0 07/07/2023 Active take 1 tablet by aissatou th in the morning potassium chloride (K-DUR,KLOR-CON) 10 MEQ CR tablet Take 1 tablet (10 mEq total) by mouth in the morning and 1 tablet (10 mEq total) before bedtime. Active End: 08-19-2023 potassium chloride CR (Klor- Con M20) 20 MEQ ER tablet Take 20 mEq by mouth in the morning. Do not crush or chew. . 0 08/19/2023 Discontinued (Therapy completed) rosuvastatin calcium 10 mg oral tablet (20 sources) HMG-CoA Reductase Inhibitor Start: 07-09-2023 End: 07-08-2024 take 1 tablet by mouth in the morning rosuvastatin (Crestor) 10 MG tablet Indications: Dyslipidemia (CMS/HCC) Take 1 tablet (10 mg) by mouth in the morning. 90 tablet 3 07/09/2023 Active sod sulf-pot chloride-mag sulf 1.479-0.188- 0.225 gram tablet (1 source) Start: 01-07-2023 sod sulf-pot chloride-mag sulf 1.479-0.188- 0.225 gram tablet Indications: History of colon polyps Please see instructional sheet given by physicians office. 24 tablet 01/07/2023 Active traMADol hydrochloride 50 mg oral tablet (3 sources) Opioid Agonist Start: 07-07-2024 End: 07-14-2024 take 1 tablet by mouth once traMADol (Ultram) 50 MG tablet Indications: Cystocele with rectocele Take 1 tablet (50 mg) by mouth every 12 (twelve) hours if needed for severe pain or moderate pain for up to 7 days 14 tablet 07/07/2024 07/14/2024 Active triamcinolone acetonide 1 mg/ml topical cream (12 sources) Corticosteroid Start: 07-04-2024 triamcinolone (Kenalog) 0.1 % cream 07/04/2024 Active Completed/Discontinued Medications Medication Drug Class(es) Dates Sig (Normalized) Sig (Original) levalbuterol 0.417 mg/ml inhalation solution (3 sources) beta2-Adrenergic Agonist End: 08-19-2023 levalbuterol (Xopenex) 1.25 MG/3ML nebulizer solution Take 1 ampule by nebulization in the morning and 1 ampule in the evening and 1 ampule before bedtime. 0 08/19/2023 Discontinued (Therapy completed) polyethylene glycol 3350 39526 mg powder for oral solution (12 sources) Osmotic Laxative Start: 09-15-2023 End: 07-06-2024 polyethylene glycol, PEG, 3350 (MiraLax) 17 GM/SCOOP powder Indications: Chronic idiopathic constipation Take 17 g by mouth Daily 527 g 2 09/15/2023 07/06/2024 Discontinued (Therapy completed) Problems Active Problems Problem Classification Problem Date Documented Da te Episodic/Chronic Abdominal pain (4 sources) Pelvic and perineal pain; Translations: [Abdominal pain] Onset: 4 07-26-2024 Episodic Anxiety disorders (20 sources) Generalized anxiety disorder; Translations: [Generalized anxiety disorder] Onset: 3 06-10-2023 Chronic Asthma (20 sources) Asthma-chronic obstructive pulmonary disease overlap syndrome; Translations: [Asthma-COPD overlap syndrome] Onset: 8 06-10-2023 Chronic Chronic obstructive pulmonary disease and bronchiectasis (3 sources) Chronic obstructive lung disease; Translations: [Chronic obstructive pulmonary disease, unspecified] Onset: 8 07-06-2024 Chronic Delirium, dementia, and amnestic and other cognitive disorders (7 sources) Senile dementia; Translations: [Alzheimer's disease with late onset] Onset: 5 08-09-2024 Chronic Disorders of lipid metabolism (20 sources) Hyperlipidemia, unspecified; Translations: [Dyslipidemia] Onset: 3 06-10-2023 Chronic Esophageal disorders (20 sources) Gastroesophageal reflux disease without esophagitis; Translations: [Gastro-esophageal reflux disease without esophagitis] Onset: 3 06-10-2023 Chronic Essential hypertension (20 sources) Essential (primary) hypertension; Translations: [Benign essential hypertension] Onset: 2 Chronic Heart valve disorders (20 sources) Mitral and aortic stenosis; Translations: [Rheumatic disorders of both mitral and aortic valves] Onset: 2 06-10-2023 Chronic Mood disorders (20 sources) Recurrent major depressive episodes, moderate ; Translations: [Major depressive disorder, recurrent, moderate] Onset: 3 Resolved: 5 06-10-2023 Chronic Osteoarthritis (20 sources) Arthritis of left foot; Translations: [Primary osteoarthritis, left ankle and foot] Onset: 3 06-10-2023 Chronic Other aftercare (1 source) Other senior care (current) drug therapy; Translations: [OTH [facility] CURRENT DRUG THERAPY] Onset: 3 Episodic Other and unspecified benign neoplasm (16 sources) Neoplasm of meninges; Translations: [Benign neoplasm of meninges, unspecified] Onset: 5 07-06-2024 Chronic Other gastrointestinal disorders (20 sources) Chronic idiopathic constipation; Translations: [Chronic idiopathic constipation] Onset: 3 09-15-2023 Chronic Other gastrointestinal disorders (3 sources) Therapeutic opioid induced constipation; Translations: [Drug induced constipation] Onset: 3 06-10-2023 Episodic Other nutritional; endocrine; and metabolic disorders (1 source) Unintentional weight loss; Translations: [Abnormal weight loss] 07-28-2024 Episodic Other upper respiratory disease (20 sources) Allergic rhinitis due to pollen; Translations: [Allergic rhinitis due to pollen] Onset: 3 06-10-2023 Chronic Prolapse of female genital organs (18 sources) Cystocele; Translations: [Cystocele, unspecified] Onset: 5 07-06-2024 Chronic Residual codes; unclassified (1 source) Family history of malignant neoplasm of breast; Translations: [FAMILY HX MALIG NEOPLASM OF BREAST] Onset: 3 Episodic Residual codes; unclassified (1 source) Family history of malignant neoplasm of digestive organs; Translations: [FAM HX MALIG NEOPLASM DIGESTIV ORGN] Onset: 3 Episodic Residual codes; unclassified (7 sources) Memory impairment; Translations: [Other amnesia] Onset: 5 07-07-2024 Episodic Residual codes; unclassified (6 sources) Family history of aneurysm of artery; Translations: [Family history of ischemic heart disease and other diseases of the circulatory system] 08-09-2024 Episodic Residual codes; unclassified (1 source) Family history of ischemic heart disease and other diseases of the circulatory system; Translations: [Family history of ischemic heart disease and other diseases of the circulatory system] Onset: 5 Episodic Thyroid disorders (2 sources) Thyroid nodule; Translations: [Nontoxic single thyroid nodule] Onset: 5 08-22-2024 Chronic Unclassified (1 source) EMS Onset: 4 Unclassified (1 source) Bladder Prolapse Onset: 5 Unclassified (1 source) New Patient Onset: 5 Past or Other Problems Problem Classification Problem Date Documented Da te Episodic/Chronic Cardiac dysrhythmias (20 sources) Sinus tachycardia; Translations: [Tachycardia, unspecified] Onset: 8 Resolved: 5 06-10-2023 Episodic Fluid and electrolyte disorders (20 sources) Hypokalemia; Translations: [Hypokalemia] Onset: 3 06-10-2023 Episodic Intestinal infection (20 sources) Viral gastroenteritis; Translations: [Viral intestinal infection, unspecified] Onset: 4 Resolved: 5 02-17-2024 Episodic Other aftercare (4 sources) Encounter for surgical aftercare following surgery on the circulatory system; Translations: [ENC SURG AFTRCARE FLW SURG CIRC SYS] Onset: 2 Episodic Other aftercare (8 sources) Patient encounter status; Translations: [Other senior care (current) drug therapy] Onset: 4 08-19-2023 Episodic Other aftercare (18 sources) Long-term current use of drug therapy; Translations: [Other terminal gauger (current) drug therapy] Onset: 4 08-19-2023 Episodic Other connective tissue disease (20 sources) Pain in left foot; Translations: [Pain in left foot] Onset: 3 Resolved: 4 06-10-2023 Episodic Other connective tissue disease (19 sources) Pain in right lower limb; Translations: [Pain in right leg] Onset: 4 04-03-2024 Episodic Other injuries and conditions due to external causes (20 sources) At low risk for fall; Translations: [History of falling] Onset: 3 06-10-2023 Episodic Other lower respiratory disease (1 source) Dyspnea; Translations: [Shortness of breath] Onset: 9 Resolved: 5 07-28-2024 Episodic Other non-traumatic joint disorders (20 sources) Subtalar joint unstable; Translations: [Other instability, left foot] Onset: 3 06-10-2023 Episodic Other nutritional; endocrine; and metabolic disorders (20 sources) Overweight; Translations: [Overweight] Onset: 3 12-07-2023 Episodic Other screening for suspected conditions (not mental disorders or infectious disease) (20 sources) Encounter for screening mammogram for malignant neoplasm of breast; Translations: [Patient encounter status] Onset: 3 Episodic Other skin disorders (20 sources) Vesicular eczema; Translations: [Dyshidrosis [pompholyx]] Onset: 3 06-10-2023 Episodic Other skin disorders (19 sources) Seborrheic keratosis; Translations: [Other seborrheic keratosis] Onset: 4 04-03-2024 Episodic Phlebitis; thrombophlebitis and thromboembolism (20 sources) Phlebitis and thrombophlebitis of superficial vessels of right lower extremity; Translations: [Thrombophlebitis of superficial veins of lower extremity] Onset: 2 Episodic Pneumonia (except that caused by tuberculosis or sexually transmitted disease) (20 sources) Bilateral pneumonia; Translations: [Pneumonia, unspecified organism] Onset: 4 Resolved: 5 03-09-2024 Episodic Residual codes; unclassified (20 sources) Family history of cancer of colon; Translations: [Family history of malignant neoplasm of digestive organs] Onset: 3 06-10-2023 Episodic Spondylosis; intervertebral disc disorders; other back problems (20 sources) Lumbosacral stenosis; Translations: [Spinal stenosis, lumbosacral region] Onset: 3 06-10-2023 Episodic Varicose veins of lower extremity (20 sources) Varicose veins of bilateral lower extremities with pain; Translations: [Varicose veins of lower extremity] Onset: 2 Episodic Results Test Name Value Interpretation Reference Range Facility CT angio neckon 08-21-2024 CT angio neck [facility] [place] [address] CT Scan Report Signed Patient: Kolton Napier MR#: [id number] 76 : 1945 Acct:[id number] Age/Sex: 78 / F ADM Date: 08/21/24 Loc: CT Room: Type: [facility] Attending Dr: Romel Baptiste DO Copies to: Romel Baptiste DO Ordering Provider: Romel Baptiste DO Date of Service: 08/21/24 CT/CT angio neck: Z82.49 ([id number]) CT/CT angio head: FAMILY HX CT angio head, CT angio neck 08/21/2024 1:57 PM SIGNS AND SYMPTOMS: Family history of aneurysm, forgetfulness CONTRAST: 90 mL of intravenous Isovue-370 TECHNIQUE: Multi-detector CT angiography axial slices of the head were obtained before and during intravenous administration of IV contrast material. Sagittal, coronal, and 3-D reconstructions were performed and viewed on a separate workstation. CT was performed with one or more of the following dose reduction techniques: Automated exposure control, adjustment of the mA and/or kV according to patient size, or use of iterative reconstruction technique. Stenoses were measured using the NASCET criteria. COMPARISON: None. FINDINGS: CTA HEAD: The superior cerebellar arteries, posterior inferior cerebellar arteries, and the basilar artery are within normal limits. The posterior cerebral arteries are unremarkable. There is an extra-axial dural based enhancing and partially calcified 2.6 x 2.8 x 2.1 cm meningioma projecting from the lateral aspect of the left sphenoidal ridge. Calcified plaque is noted in the intracranial segments of the internal carotid arteries. There are normal anterior and middle cerebral arteries. Anterior communicating artery is patent. Posterior communicating arteries are present. The deep venous system and dural venous systems appear to be patent. No bony abnormalities are appreciated. CTA NECK: There is calcified plaque is noted in the aortic arch. There is a normal three-vessel arch configuration. The subclavian arteries are within normal limits. The vertebral arteries arise from the subclavian arteries and are normal in course and caliber up to the skull base. Mild calcified plaque is noted in the carotid bifurcations without significant stenosis. Visualized lung parenchyma is clear. No acute bony abnormalities are identified. Degenerative changes are noted in the cervical spine and thoracic spine. The paraspinous soft tissues are within normal limits. Heterogeneous thyroid nodules are noted bilaterally suspicious for multinodular goiter. Ultrasound correlation is recommended however as malignancy is not excluded. CT/CT angio head IMPRESSION: There is an extra-axial dural based enhancing and partially calcified 2.6 x 2.8 x 2.1 cm meningioma projecting from the lateral aspect of the left sphenoidal ridge. No evidence of focal stenosis, aneurysmal dilatation, dissection or occlusion. Heterogeneous thyroid nodules are noted bilaterally suspicious for multinodular goiter. Ultrasound correlation is recommended however as malignancy is not excluded. Impression dictated by: Tu Lopez M.D.08/21/2024 7:46 PM Dictation Location: [place] [address] Transcribed By: [facility] 08/21/241945 Dictated By: Tu Lopez II, MD 08/21/241938 Signed By: 08/21/241945 Normal [facility] Creatinine (Bld) [Mass/Vol]O rdered By: Romel Baptiste on 08-21-2024 Creatinine [Mass/Vol] Whole blood creati nine measurement 0.6-1.3 [facility] Comment on above: ER/ESD physician is notified/shown all ISTAT results.Critical values may be confirmed by laboratory testing ifdeemed necessary by ER attending doctor. ISTAT XRay CREon 08-21-2024 Creatinine [Mass/Vol] 0.8 mg/dL Normal 0.6-1.3 [facility] Comment on above: Result Comment: ER/E SD physician is notified/shown all ISTAT results. Critical values may be confirmed by laboratory testing if deemed necessary by ER attending doctor. Performed By: #### I SCRE #### [facility] [address] [place] [address] ISTAT GFR >60.0 Normal [facility] Comment on above: Result Comment: PERF ORMED BY: [place] [address] PATHOLOGIST SERVICE STATION ATTENDANT MARIO MORALES M.D. Performed By: #### I SCRE #### [facility] [address] [place] [address] No Panel InformationOrdered By: Romel Baptiste on 08-21-2024 Bedside Estimated GFR (eGFR) > 60.0 [facility] Bacteria identified Cx Nom ( U)on 07-27-2024 Service comment (Unsp spec) [Interp] 10-50,000 ORGANISMS/mL NORMAL [facility] Hypereight Measure post void residualon 07-26-2024 Volume 37 ml [facility] No Panel Informationon 07-26 [facility] POCT urinalysis dipstick onl yon 07-26-2024 Appearance (U) cloudy [facility] External Poct Urine Blood Trace [facility] External Poct Urine Color yellow [facility] External Poct Urine Ketones Negative [facility] External Poct Urine Leukocyte Esterase Negative [facility] External Poct Urine Nitrite Negative [facility] External Poct Urine Ph 6.5 Pr [facility] External Poct Urine Protein Negative [facility] URINALYSISon 07-26-2024 Bilirubin Ql (U) Negative Normal NEG [facility] Comment on above: Performed By: #### U A #### [facility] ([id number]) [address] [place] [address] BLOOD/HGB Negative Normal NEG [facility] Comment on above: Performed By: #### U A #### [facility] ([id number]) [address], [address] [place] [address] Color (U) YELLOW Normal YELLOW [facility] Comment on above: Performed By: #### U A #### [facility] ([id number]) [address] [place] [address] Glucose Ql (U) Negative Normal NEG [facility] Comment on above: Performed By: #### U A #### [facility] ([id number]) [address], [address] [place] [address] Ketones Ql (U) Negative Normal NEG [facility] Comment on above: Performed By: #### U A #### [facility] ([id number]) [address] [place] [address] Leukocyte esterase Test strip Ql (U) Negative Normal NEG [facility] Comment on above: Performed By: #### U A #### [facility] ([id number]) [address] [place] [address] Nitrite Ql (U) Negative Normal NEG [facility] Comment on above: Performed By: #### U A #### [facility] ([id number]) [address] [place] [address] pH (U) 6.5 [pH] Normal 5.0-8.5 [facility] Comment on above: Performed By: #### U A #### [facility] ([id number]) [address] [address] [place] [address] Protein Ql (U) Negative Normal NEG [facility] Comment on above: Performed By: #### U A #### [facility] ([id number]) [address] [address] [place] [address] Specific gravity (U) [Rel density] 1.013 Normal 1.003-1.035 [facility] Comment on above: Performed By: #### U A #### [facility] ([id number]) [address] [address] TURBIDITY CLEAR Normal CLEAR [facility] Comment on above: Performed By: #### U A #### [facility] ([id number]) [address] [address] [place] [address] Urobilinogen (U) [Mass/Vol] mg/dL Normal <1.1 [facility] Comment on above: Performed By: #### U A #### [facility] ([id number]) [address] [address] URINE CULTUREon 07-26-2024 Bacteria identified Cx Nom (U) CULTURE RESULTS 10-50,000 ORGANISMS/mL NORMAL [facility] Normal [facility] Comment on above: Performed By: #### 6 30-4 #### [facility] ([id number]) [address] [address] Urinalysison 07-26-2024 Bilirubin Ql (U) Negative Negative^Ne g ative [facility] Color (U) YELLOW YELLOW^YELLO W [facility] Glucose (U) [Mass/Vol] Negative Negat narinder^Neg ative mg/dL [facility] Hemoglobin Auto test strip Ql (U) Negative Negative^Neg ative [facility] Ketones (U) [Mass/Vol] Negative Negat narinder^Neg ative mg/dL [facility] Leukocyte esterase Auto test strip Ql (U) Negative Negative^Neg ative [facility] Nitrite Auto test strip Ql (U) Negative Negative^Neg ative [facility] pH (U) 6.5 [pH] 5.0 - 8.5 [facility] Protein (U) [Mass/Vol] Negative Negat narinder^Neg ative mg/dL [facility] Specific gravity Refractometry automated (U) [Rel density] 1.013 1.003 - 1.035 [facility] Turbidity Ql (U) CLEAR CLEAR^CLEAR [facility] Urobilinogen Qn (U) NINF [facility] Urine Cultureon 07-02-2024 Bacteria identified Cx Nom (U) No Growth 2 Days PERFORMED BY: [place] [address] PATHOLOGIST SERVICE STATION ATTENDANT MARIO MORALES M.D. Normal [facility] Comment on above: Performed By: #### C UU #### [facility] [address] Urine cultureOrdered By: JESSICA RODRIGUEZ on 07-02-2024 Bacteria identified Cx Nom (U) Urine culture [facility] CBC AND AUTO DIFFon 06-29-20 ABSOLUTE BASOPHIL 0.0 X10E9/L Normal 0.0-0.2 [facility] Comment on above: Performed By: #### C BCA, 3040-3, CMP #### [facility] ([id number]) [address] [facility], [place] [address] ABSOLUTE NEUTROPHIL 4.9 X10E9/L Normal 1.5-6.6 [facility] Comment on above: Performed By: #### Harika WATERS, 3039-09, CMP #### [facility] ([id number]) [address] [place] [address] Basophils/100 WBC (Bld) 0.5 % Normal [facility] Comment on above: Performed By: #### Harika WATERS, 3039-09, CMP #### [facility] ([id number]) [address] [place] [address] Eosinophils (Bld) [#/Vol] 0.1 10*3/uL Normal 0.0-0.4 [facility] Comment on above: Performed By: #### Harika WATERS, 3039-09, CMP #### [facility] ([id number]) [address] [place] [address] Eosinophils/100 WBC (Bld) 0.7 % Normal [facility] Comment on above: Performed By: #### Harika WATERS, 3039-09, CMP #### [facility] ([id number]) [address] [place] [address] Erythrocyte distribution width (RBC) [Ratio] 12.6 % Normal 11.5-15.0 [facility] Comment on above: Performed By: #### Harika WATERS, 3039-09, CMP #### [facility] ([id number]) [address] [place] [address] Hematocrit (Bld) [Volume fraction] 40.9 % Normal 35-47 [facility] Comment on above: Performed By: #### Harika WATERS, 3039-09, CMP #### [facility] ([id number]) [address] [place] [address] Hemoglobin (Bld) [Mass/Vol] 13.9 g/dL Normal 11.7-15.5 [facility] Comment on above: Performed By: #### Harika WATERS, 3039-09, CMP #### [facility] ([id number]) [address] [place] [address] Lymphocytes (Bld) [#/Vol] 1.7 10*3/uL Normal 1.0-3.5 [facility] Comment on above: Performed By: #### C EVELIN, 3039-09, CMP #### [facility] ([id number]) [address] [place] [address] Lymphocytes/100 WBC (Bld) 23.6 % Normal [facility] Comment on above: Performed By: #### Harika WATERS, 3039-09, CMP #### [facility] ([id number]) [address] [place] [address] MCH (RBC) [Entitic mass] 31.8 pg Normal 27-34 [facility] Comment on above: Performed By: #### Harika WATERS, 3039-09, CMP #### [facility] ([id number]) [address] [place] [address] MCHC (RBC) [Mass/Vol] 34.1 g/dL Normal 32-36 [facility] Comment on above: Performed By: #### Harika WATERS, 3039-09, CMP #### [facility] ([id number]) [address] [place] [address]876 MCV (RBC) [Entitic vol] 93 fL Normal 80-100 [facility] Comment on above: Performed By: #### Harika WATERS, 3039-09, CMP #### [facility] ([id number]) [address] [place] [address]66 Monocytes (Bld) [#/Vol] 0.5 10*3/uL Normal 0-0.9 [facility] Comment on above: Performed By: #### Harika WATERS, 3039-09, CMP #### [facility] ([id number]) [address] [place] [address] Monocytes/100 WBC (Bld) 7.4 % Normal [facility] Comment on above: Performed By: #### Harika WATERS, 3039-09, CMP #### [facility] ([id number]) [address] [place] [address] Neutrophils/100 WBC (Bld) 67.8 % Normal [facility] Comment on above: Performed By: #### Harika WATERS, 3039-09, CMP #### [facility] ([id number]) [address] [place] [address] 32057 Platelet mean volume (Bld) [Entitic vol] 8.0 fL Normal 7-12 [facility] Comment on above: Performed By: #### Harika WATERS, 3039-09, CMP #### [facility] ([id number]) [address] [place] [address]47 Platelets (Bld) [#/Vol] 258 10*3/uL Normal 150-450 [facility] Comment on above: Performed By: #### Harika WATERS, 3039-09, CMP #### [facility] ([id number]) [address] [place] [address] 17276 RBC COUNT 4.38 X10E12/L Normal 3.80-5.20 [facility] Comment on above: Performed By: #### Harika WATERS, 3039-09, CMP #### [facility] ([id number]) [address] [place] [address] 85634 WBC (Bld) [#/Vol] 7.3 10*3/uL Normal 4.0-11.0 [facility] Comment on above: Performed By: #### Harika WATERS, 3, CMP #### [facility] ([id number]) [address] [place] [address] COMPREHENSIVE METABOLIC PANE [facility] 06-29-2024 Albumin [Mass/Vol] 4.7 g/dL Normal 3.2-5.3 [facility] Comment on above: Performed By: #### Harika WATERS, 3039-09, CMP #### [facility] ([id number]) [address] [place] [address] 56747 ALP [Catalytic activity/Vol] 66 U/L Normal 39-130 [facility] Comment on above: Performed By: #### Harika WATERS, 3039-09, CMP #### [facility] ([id number]) [address] [place] [address] 09280 ALT [Catalytic activity/Vol] 16 U/L Normal 0-31 [facility] Comment on above: Performed By: #### Harika WATERS, 3039-09, CMP #### [facility] ([id number]) [address] [place] [address] 52590 Anion gap [Moles/Vol] 10 mmol/L Normal 5-15 [facility] Comment on above: Performed By: #### Harika WATERS, 3039-09, CMP #### [facility] ([id number]) [address] [place] [address] 99160 AST [Catalytic activity/Vol] 25 U/L Normal 0-41 [facility] Comment on above: Performed By: #### Harika WATERS, 3039-09, CMP #### [facility] ([id number]) [address] [place] [address] [place] [address] Bilirubin [Mass/Vol] 0.4 mg/dL Normal 0.3-1.2 [facility] Comment on above: Performed By: #### Harika WATERS, 3039-09, CMP #### [facility] ([id number]) [address] [place] [address] 57849 Calcium [Mass/Vol] 10.0 mg/dL Normal 8.5-10.5 [facility] Comment on above: Performed By: #### Harika WATERS, 3039-09, CMP #### [facility] ([id number]) [address] [place] [address] 89766 Chloride [Moles/Vol] 101 mmol/L Normal 98-109 [facility] Comment on above: Performed By: #### C EVELIN, 3039-09, CMP #### [facility] ([id number]) [address] [place] [address] 88328 CO2 [Moles/Vol] 23 mmol/L Normal 22-32 [facility] Comment on above: Performed By: #### C EVELIN, 3039-09, CMP #### [facility] ([id number]) [address] [place] [address] 75647 Creatinine [Mass/Vol] 0.74 mg/dL Normal 0.40-1.00 [facility] Comment on above: Result Comment: METH OD TRACEABLE TO IDMS STANDARD Performed By: #### C EVELIN, 3039-09, CMP #### [facility] ([id number]) [address] [place] [address] 75267 GFR/1.73 sq M.predicted among non-blacks MDRD (S/P/Bld) [Vol rate/Area] 83 mL/min/{1.73_m2} Normal >59 [facility] Comment on above: Result Comment: Reported eGFR is based on the CKD-EPI 1 equation that does not use a race coefficient. Performed By: #### C EVELIN, 3039-09, CMP #### [facility] ([id number]) [address] [place] [address] 57709 Glucose [Mass/Vol] 110 mg/dL High 65-99 [facility] Comment on above: Performed By: #### Harika WATERS, 3039-09, CMP #### [facility] ([id number]) [address] [place] [address] 24505 Potassium [Moles/Vol] 4.0 mmol/L Normal 3.5-5.0 [facility] Comment on above: Performed By: #### C BCA, 3040-3, CMP #### [facility] ([id number]) [address] [place] [address] 90829 Protein [Mass/Vol] 7.9 g/dL Normal 6.0-8.0 [facility] Comment on above: Performed By: #### C BCA, 3040-3, CMP #### [facility] ([id number]) [address] [place] [address] 60047 Sodium [Moles/Vol] 134 mmol/L Normal 134-146 [facility] Comment on above: Performed By: #### C BCA, 3040-3, CMP #### [facility] ([id number]) [address] [place] [address] 15844 Urea nitrogen [Mass/Vol] 14 mg/dL Normal 5-27 [facility] Comment on above: Performed By: #### C BCA, 3040-3, CMP #### [facility] ([id number]) [address] [place] [address] ABDOMEN AND PELVIS W CONT on [...] Jerry MD on 06/29/2024 10:28 AM Normal [facility] LIPASEon 06-29-2024 Lipase [Catalytic activity/Vol] 35 U/L Normal 17-40 [facility] Comment on above: Performed By: #### C BCA, 3040-3, CMP #### [facility] ([id number]) [address] [place] [address], [place] [address] Office Visiton 06-26-2024 Follow-up visit [id number] Pankaj Napier 1945 F Date Provider Department [facility] History Problem Relation Age of Onset Coronary artery disease Mother Coronary artery disease Brother Family Status - Relation Status Age at Mother Brother Level of Service:99627 [place] OFFICE/OUTPATIENT ESTABLISHED LOW MDM 20 MIN Normal [facility] ALL HEMOGLOBINon 05-30-2024 Hemoglobin (Bld) [Mass/Vol] 13.1 g/dL 12.0 - 16.0 g/dL [facility] Office Visiton 08-23-2023 Follow-up visit [id number] Pankaj Napier 1945 F Date Provider Department Center 08/23/2023 EVE MARIA Family History Problem Relation Age of Onset Coronary artery disease Mother Coronary artery disease Brother Family Status - Relation Status Age at Mother Brother Level of Service:96882 [place] OFFICE/OUTPATIENT ESTABLISHED LOW MDM 20 MIN Normal [facility] MG MAMM SCREEN 3D SHARLENE CADon 09-24-2022 MG MAMM SCREEN 3D SHARLENE CAD Patient: KOLTON NAPIER Exam Date: 09/24/2022 : 1945 Gender:F Ordering : DR SHAHEED DE LA TORRE . Admission #: [id number] Family : Order #: [id number] CLICK HERE TO VIEW EXAM RADIOLOGY REPORT [...] stomach cancer at age 80. LOCATION: [facility] BREAST COMPOSITION: Scattered areas fibroglandular density. [...] PALPABLE LUMP SHOULD BE BIOPSIED. Dictated by: Karl Vaughan M.D. on 09/25/2022 at 07:06 Approved by: Karl Vaughan M.D. on 09/25/2022 at 07:08 Normal [facility] CBC AUTO DIFFon 07-17-2022 BASO # 0.1 103/ul Normal 0.0-0.1 [facility] Comment on above: Performed By: #### C BC ####[facility] [address] [place] [address]DrNeal Walker Basophils/100 WBC (Bld) 0.8 % Normal 0.2-2.0 [facility] Comment on above: Performed By: #### C BC ####[facility] [address] [place] [address]DrNeal Walker EO # 0.4 103/ul Normal 0.0-0.7 [facility] Comment on above: Performed By: #### C BC ####[facility] [address] [place], [place] [address]Dr. Fidencio Walker Eosinophils/100 WBC (Bld) 4.7 % Normal 0.9-7.0 [facility] Comment on above: Performed By: #### C BC ####[facility] [address] [place], [place] [address]Dr. Fidencio Walker Erythrocyte distribution width (RBC) [Ratio] 13.0 % Normal 11.0-15.0 [facility] Comment on above: Performed By: #### C BC ####[facility] [address] [place], [place] [address]Dr. Fidencio Walker Hematocrit (Bld) [Volume fraction] 43.0 % Normal 36.0-48.0 [facility] Comment on above: Performed By: #### C BC ####[facility] [address] [place], [place] [address]Dr. Fidencio Walker Hemoglobin (Bld) [Mass/Vol] 13.1 g/dL Normal 12.0-16.0 [facility] Comment on above: Performed By: #### C BC ####[facility] [address] [place], [place] [address]Dr. Fidencio Aaron IG # 0.02 10e3/ul Normal 0.00-0.03 [facility] Comment on above: Performed By: #### C BC ####[facility] [address] [place], [place] [address]Dr. Galileanickolas Walker IG % 0.3 % Normal 0.0-0.5 [facility] Comment on above: Performed By: #### C BC ####[facility] [address] [place], [place] [address]DrNeal Walker LYMPH # 2.2 103/ul Normal 1.2-3.8 [facility] Comment on above: Performed By: #### C BC ####[facility] [address] [place], [place] [address]Dr. Fidencio Walker Lymphocytes/100 WBC (Bld) 28.7 % Normal 20.5-60.0 [facility] Comment on above: Performed By: #### C BC ####[facility] [address] [place] [address]DrNeal Walker MANUAL DIFF REQ NO Normal [facility] Comment on above: Performed By: #### C BC ####[facility] [address] [place] [address]DrNeal Walker MCH (RBC) [Entitic mass] 30.9 pg Normal 26.7-34.0 [facility] Comment on above: Performed By: #### C BC ####[facility] [address] [place], [place] [address]DrNeal Walker MCHC (RBC) [Mass/Vol] 30.5 g/dL Normal 29.9-35.2 [facility] Comment on above: Performed By: #### C BC ####[facility] [address] [place], [place] [address]DrNeal Walker MCV (RBC) [Entitic vol] 101.4 fL Critically high 81.0-99.0 [facility] Comment on above: Performed By: #### C BC ####[facility] [address] [place], [place] [address]DrNeal Walker MONO # 0.5 103/ul Normal 0.3-0.8 [facility] Comment on above: Performed By: #### C BC ####[facility] [address] [place], [place] [address]DrNeal Walker Monocytes/100 WBC (Bld) 7.1 % Normal 1.7-12.0 [facility] Comment on above: Performed By: #### C BC ####[facility] [address] [place], [place] [address]DrNeal Walker NEUT # 4.4 103/ul Normal 1.4-6.5 [facility] Comment on above: Performed By: #### C BC ####[facility] [address] [place], [place] [address]DrNeal Walker Neutrophils/100 WBC (Bld) 58.4 % Normal 43.0-75.0 [facility] Comment on above: Performed By: #### C BC ####[facility] [address] [place] [address]Dr. Fidencio Walker Platelet mean volume (Bld) [Entitic vol] 10.8 fL Normal 9.5-13.5 [facility] Comment on above: Performed By: #### C BC ####[facility] [address] [place] [phone]. Fidencio Walker PLT 200 103/ul Normal 150-450 [facility] Comment on above: Performed By: #### C BC ####[facility] [address] [place] [address]Dr. Fidencio Walker RBC 4.24 106/ul Normal 4.20-5.40 [facility] Comment on above: Performed By: #### C BC ####[facility] [address] [place], [place] [address]Dr. Fidencio Walker WBC 7.5 103/ul Normal 4.0-11.0 [facility] Comment on above: Performed By: #### C BC ####[facility] [address] [place], [place] [address]Dr. Fidencio Walker LIPID PROFILEon 07-17-2022 CHOL-HDL RATIO NORM SEE BELOW Normal [facility] Comment on above: Result Comment: 3.3 - 4.4 LOW RISK 4.4 - 7.1 AVERAGE RISK 7.1 - 11.0 MODERATE RISK >11.0 HIGH RISK Performed By: #### L IPID, LIVER, BMP ####[facility] [address] [place] [phone]. Fidencio Walker Cholesterol [Mass/Vol] 134 mg/dL Normal <=200 [facility] Comment on above: Performed By: #### L IPID, LIVER, BMP ####[facility] [address] [place] [phone]. Fidencio Walker Cholesterol in HDL [Mass/Vol] 57 mg/dL Normal 40-60 [facility] Comment on above: Performed By: #### L IPID, LIVER, BMP ####[facility] [address] [place] [phone]. Fidencio Walker Cholesterol in LDL [Mass/Vol] 59.6 mg/dL Normal [facility] Comment on above: Performed By: #### L IPID, LIVER, BMP ####[facility] [address] [place] [phone]. Fidencio Walker Cholesterol.total/Chol esterol in HDL [Mass ratio] 2.4 {ratio} Normal [facility] Comment on above: Performed By: #### L IPID, LIVER, BMP ####[facility] [address] [place] [phone]. Fidencio Walker HDL NORMAL > or = 60 mg/dl - LO W CARDIOVASCULAR RISK <40 mg/dl - HIGH CARDIOVASCULAR RISK Normal [facility] Comment on above: Performed By: #### L IPID, LIVER, BMP ####[facility] [address] [place] [phone]. Fidencio Walker LDL CALC NORMAL SEE BELOW Normal [facility] Comment on above: Result Comment: <100 mg/dl OPTIMAL 100 - 129 mg/dl NEAR OR ABOVE OPTIMAL 130 - 159 mg/dl BORDERLINE HIGH 160 - 189 mg/dl HIGH >190 mg/dl VERY HIGH Performed By: #### L IPID, LIVER, BMP ####[facility] [address] [place] [phone]. Fidencio Walker Triglyceride [Mass/Vol] 87 mg/dL Normal <=150 [facility] Comment on above: Performed By: #### L IPID, LIVER, BMP ####[facility] [address] [place] [phone]. Fidencio Walker VLDL CALC 17.4 mg/dL Normal [facility] Comment on above: Performed By: #### L IPID, LIVER, BMP ####[facility] [address] [place] [phone]. Galileanickolas Aaron LIVER PROFILEon 07-17-2022 Albumin [Mass/Vol] 3.7 g/dL Normal 3.4-5.0 [facility] Comment on above: Performed By: #### L IPID, LIVER, BMP ####[facility] [address] [place] [phone]. Fidencio Walker Albumin/Globulin [Mass ratio] 1.0 {ratio} Normal [facility] Comment on above: Performed By: #### L IPID, LIVER, BMP ####[facility] [address] [place] [id number]. Fidencio Walker ALP [Catalytic activity/Vol] 58 U/L Normal 46-116 [facility] Comment on above: Performed By: #### L IPID, LIVER, BMP ####[facility] [address] [place] [address]Dr. Fidencio Walker ALT [Catalytic activity/Vol] 13 U/L Critically low 14-59 [facility] Comment on above: Performed By: #### L IPID, LIVER, BMP ####[facility] [address] [place], [place] [address]Dr. Fidnecio Walker AST [Catalytic activity/Vol] 18 U/L Normal 15-37 [facility] Comment on above: Performed By: #### L IPID, LIVER, BMP ####[facility] [address] [place], [place] [address]Dr. Fidencio Walker BILI, CONJUGATED 0.1 mg/dL Normal 0.0-0.2 [facility] Comment on above: Performed By: #### L IPID, LIVER, BMP ####[facility] [address] [place] [address]Dr. Fidencio Walker Bilirubin [Mass/Vol] 0.3 mg/dL Normal 0.2-1.0 [facility] Comment on above: Performed By: #### L IPID, LIVER, BMP ####[facility] [address] [place] [address]Dr. Fidencio Walker Globulin (S) [Mass/Vol] 3.6 g/dL Normal [facility] Comment on above: Performed By: #### L IPID, LIVER, BMP ####[facility] [address] [place] [address]Dr. Fidencio Walker Protein [Mass/Vol] 7.3 g/dL Normal 6.4-8.2 [facility] Comment on above: Performed By: #### L IPID, LIVER, BMP ####[facility] [address] [place] [address]Dr. Fidencio Walker PROF CHEM 8 (BAS METB)on Anion gap [Moles/Vol] 11.3 mmol/L Normal [facility] Comment on above: Performed By: #### L IPID, LIVER, BMP ####[facility] [address] [place] [address]Dr. Fidencio Walker Calcium [Mass/Vol] 9.2 mg/dL Normal 8.5-10.1 [facility] Comment on above: Performed By: #### L IPID, LIVER, BMP ####[facility] [address] [place] [address]Dr. Fidencio Walker Chloride [Moles/Vol] 102 mmol/L Normal 98-107 [facility] Comment on above: Performed By: #### L IPID, LIVER, BMP ####[facility] [address] [place] [address]Dr. Fidencio Walker CO2 [Moles/Vol] 29.5 mmol/L Normal 21.0-32.0 [facility] Comment on above: Performed By: #### L IPID, LIVER, BMP ####[facility] [address] [place] [address]Dr. Fidencio Walker Creatinine [Mass/Vol] 0.92 mg/dL Normal 0.55-1.02 [facility] Comment on above: Performed By: #### L IPID, LIVER, BMP ####[facility] [address] [place] [address]Dr. Fidencio Walker EGFR-AF BULGARIAN >60 Normal >=60 [facility] Comment on above: Result Comment: Prev iously reported as: (blank) On 07/17/2022 13:28 By AJR Performed By: #### L IPID, LIVER, BMP ####[facility] [address] [place] [address]Dr. Fidencio Walker EGFR-NON AF BULGARIAN 59 mL/min/1.73m2 Critically low >=60 [facility] Comment on above: Result Comment: Prev iously reported as: (blank) On 07/17/2022 13:28 By AJR Performed By: #### L IPID, LIVER, BMP ####[facility] [address] [place], [place] [address]Gf. Fidencio Walker Glucose [Mass/Vol] 98 mg/dL Normal 74-106 [facility] Comment on above: Performed By: #### L IPID, LIVER, BMP ####[facility] [address] [place] [id number]. Fidencio Walker Potassium [Moles/Vol] 3.8 mmol/L Normal 3.5-5.1 [facility] Comment on above: Performed By: #### L IPID, LIVER, BMP ####[facility] [address] [place] [address]Dr. Fidencio Walker Sodium [Moles/Vol] 139 mmol/L Normal 136-145 [facility] Comment on above: Performed By: #### L IPID, LIVER, BMP ####[facility] [address] [place] [id number]. Fidencio Walker Urea nitrogen [Mass/Vol] 19.0 mg/dL Critically high 7.0-18.0 [facility] Comment on above: Performed By: #### L IPID, LIVER, BMP ####[facility] [address] [place] [id number]. Fidencio Walker Urea nitrogen/Creatinine [Mass ratio] 20.7 mg/mg Normal [facility] Comment on above: Performed By: #### L IPID, LIVER, BMP ####[facility] [address] [place] [id number]. 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 Admission #: [id number] Family : Order #: [id number] CLICK HERE TO VIEW EXAM RADIOLOGY REPORT PROCEDURE: VEIN CENTER INJECTION SCLEROSING SOLUTION MULTIPLE VEINS SAME COMPARISON: VC INJ SCL BERTA HOUSE FATHER VEINS, 04/02/2022. VC INJ SCL BERTA HOUSE FATHER VEINS, 03/24/2022. INDICATIONS: Pain co-occurrent and due [...] Marialuisa Avitia MD on 04/16/2022 at 14:34 [facility] VC INJ SCL BERTA HOUSE FATHER VEINSon 0 04-02-2022 VC INJ SCL BERTA HOUSE FATHER VEINS Patient: KOLTON NAPIER Exam Date: 04/02/2022 : 1945 Gender:F Ordering : DR MARIALUISA AVITIA M.D. Admission #: [id number] Family : Order #: [id number] CLICK HERE TO VIEW EXAM RADIOLOGY REPORT PROCEDURE: VEIN CENTER INJECTION SCLEROSING SOLUTION MULTIPLE VEINS SAME COMPARISON: VC INJ SCL BERTA HOUSE FATHER VEINS, 03/24/2022. INDICATIONS: Pain co-occurrent and due [...] Technically successful sclerotherapy as described Dictated by: Karl Vaughan M.D. on 04/02/2022 at 15:47 Approved by: Karl Vaughan M.D. on 04/02/2022 at 15:47 [facility] VC INJ SCL BERTA HOUSE FATHER VEINSon 0 03-24-2022 VC INJ SCL BERTA HOUSE FATHER VEINS Patient: KOLTON NAPIER. Exam Date: 03/24/2022 : 1945 Gender:F Ordering : DR MARIALUISA AVITIA M.D. Admission #: [id number] Family : Order #: [id number] CLICK HERE TO VIEW EXAM RADIOLOGY REPORT PROCEDURE: VEIN CENTER INJECTION SCLEROSING SOLUTION MULTIPLE VEINS SAME COMPARISON: VC INJ SCL BERTA HOUSE FATHER VEINS, 03/19/2022. VC INJ SCL BERTA HOUSE FATHER VEINS, 03/10/2022. INDICATIONS: Pain co-occurrent and due [...] MD on 03/24/2022 at 13:40 Approved by: aMrialuisa Avitia MD on 03/24/2022 at 13:41 Normal [facility] VC INJ SCL BERTA HOUSE FATHER VEINSon 0 03-19-2022 VC INJ SCL BERTA HOUSE FATHER VEINS Patient: KOLTON NAPIER. Exam Date: 03/19/2022 : 1945 Gender:F Ordering : DR MARIALUISA AVITIA M.D. Admission #: [id number] Family : Order #: [id number] CLICK HERE TO VIEW EXAM RADIOLOGY REPORT PROCEDURE: VEIN CENTER INJECTION SCLEROSING SOLUTION MULTIPLE VEINS SAME COMPARISON: VC INJ SCL BERTA HOUSE FATHER VEINS, 03/10/2022. VC INJ SCL BRETA HOUSE FATHER VEINS, 03/03/2022. INDICATIONS: Pain co-occurrent and due [...] Marialuisa Avitia MD on 03/19/2022 at 15:13 [facility] VC INJ SCL BERTA HOUSE FATHER VEINSon 0 03-10-2022 VC INJ SCL BERTA HOUSE FATHER VEINS Patient: KOLTON NAPIER Exam Date: 03/10/2022 : 1945 Gender:F Ordering : DR MARIALUISA AVITIA M.D. Admission #: [id number] Family : Order #: [id number] CLICK HERE TO VIEW EXAM RADIOLOGY REPORT PROCEDURE: VEIN CENTER INJECTION SCLEROSING SOLUTION MULTIPLE VEINS SAME COMPARISON: VC INJ SCL BERTA HOUSE FATHER VEINS, 03/03/2022. INDICATIONS: Pain co-occurrent and due [...] Marialuisa Avitia MD on 03/10/2022 at 14:38 [facility] VC INJ SCL BERTA HOUSE FATHER VEINSon 0 03-03-2022 VC INJ SCL BERTA HOUSE FATHER VEINS Patient: KOLTON NAPIER Exam Date: 03/03/2022 : 1945 Gender:F Ordering : DR MARIALUISA AVITIA M.D. Admission #: [id number] Family : Order #: [id number] CLICK HERE TO VIEW EXAM RADIOLOGY REPORT [...] Avitia MD on 03/03/2022 at 15:25 Normal [facility] VC CONSULT FOLLOWUPon 2021 VC CONSULT FOLLOWUP Patient: CARTER NAPIER Exam Date: 02/25/2022 : 1945 Gender:F Ordering : DR MARIALUISA AVITIA M.D. Admission #: [id number] Family : Order #: [id number] CLICK HERE TO VIEW EXAM RADIOLOGY REPORT [...] the physical exam and consultation Dictated by: Karl Vaughan M.D. on 02/25/2022 at 15:39 Approved by: Karl Vaughan M.D. on 02/25/2022 at 15:41 Normal [facility] VC EXT VENOUS RT LIMITEDon 0 02-25-2022 VC EXT VENOUS RT LIMITED Patient: KOLTON NAPIER. Exam Date: 02/25/2022 : 1945 Gender:F Ordering : DR MARIALUISA AVITIA M.D. Admission #: [id number] Family : Order #: [id number] CLICK HERE TO VIEW EXAM RADIOLOGY REPORT [...] right leg branch saphenous varicosities. Dictated by: Karl Vaughan M.D. on 02/25/2022 at 15:38 Approved by: Karl Vaughan M.D. on 02/25/2022 at 15:39 Normal [facility] VC INJ FOAM SCLERO W US MLTI on 02-19-2022 VC INJ FOAM SCLERO W US MLTI Patient: KOLTON NAIPER. Exam Date: 02/19/2022 : 1945 Gender:F Ordering : DR MARIALUISA AVITIA M.D. Admission #: [id number] Family : Order #: [id number] CLICK HERE TO VIEW EXAM RADIOLOGY REPORT [...] with Varithena(r) 2. Intraoperative ultrasound guidance Physician: Karl Vaughan M.D. Anesthesia: None. Indications for Procedure: [...] days. PERSONNEL: Jamie Babin R.N. Dictated by: Karl Vaughan M.D. on 02/20/2022 at 09:03 Approved by: Karl Vaughan M.D. on 02/20/2022 at 09:07 [facility] VC CONSULT FOLLOWUPon 2021 VC CONSULT FOLLOWUP Patient: CARTER NAPIER Exam Date: 02/10/2022 : 1945 Gender:F Ordering : DR MARIALUISA AVITIA M.D. Admission #: [id number] Family : Order #: [id number] CLICK HERE TO VIEW EXAM RADIOLOGY REPORT [...] Avitia MD on 02/10/2022 at 14:56 Normal [facility] VC EXT VENOUS RT LIMITEDon 0 02-10-2022 VC EXT VENOUS RT LIMITED Patient: KOLTON NAPIER Exam Date: 02/10/2022 : 1945 Gender:F Ordering : DR MARIALUISA AVITIA M.D. Admission #: [id number] Family : Order #: [id number] CLICK HERE TO VIEW EXAM RADIOLOGY REPORT [...] Avitia MD on 02/10/2022 at 14:38 Normal [facility] VC ENDOVENOUS ABL 1ST V RTon 02-03-2022 VC ENDOVENOUS ABL 1ST V RT Patient: KOLTON NAPIER Exam Date: 02/03/2022 : 1945 Gender:F Ordering : DR MARIALUISA AVITIA M.D. Admission #: [id number] Family : Order #: [id number] CLICK HERE TO VIEW EXAM RADIOLOGY REPORT PROCEDURE: VEIN CENTER ENDOVENOUS ABLATION FIRST VEIN RIGHT COMPARISON: None. INDICATIONS: Pain co-occurrent and due to varicose veins of bilateral legs I83.813 OPERATIVE REPORT: The risks and benefits of the procedure had been previously discussed, and were rediscussed at length. Informed written consent was obtained by and Jamie Babin assisted. Time out procedure [...] the right small saphenous vein. Dictated by: Karl Vaughan M.D. on 02/03/2022 at 13:58 Approved by: Karl Vaughan M.D. on 02/03/2022 at 14:01 Normal [facility] COMP CONSULTATIONon 01-22 VC COMP CONSULTATION Patient: DO KARTHIKEYAN PEARLMartha ThomasNeal Exam Date: 01/22/2022 : 1945 Gender:F Ordering : DR MARIALUISA AVITIA M.D. Admission #: [id number] Family : Order #: [id number] CLICK HERE TO VIEW EXAM RADIOLOGY REPORT [...] Avitia MD on 01/22/2022 at 14:56 Normal [facility] VC VENOUS REFLUX SHARLENE LMTon 0 01-22-2022 VC VENOUS REFLUX SHARLENE LMT Patient: KOLTON NAPIER Exam Date: 01/22/2022 : 1945 Gender:F Ordering : DR MARIALUISA AVITIA M.D. Admission #: [id number] Family : Order #: [id number] CLICK HERE TO VIEW EXAM RADIOLOGY REPORT [...] chronic thrombus visualized Compressibility: Normal Flow: Normal Nanoelectronics Engineer: Dist/med calf 2.7mm with 0s. Mid/med [...] Flow: 1.2s of reflux in popliteal vein Nanoelectronics Engineer: Dist/med calf 4.7mm with 0s reflux. [...] MD on 01/22/2022 at 14:18 Normal [facility] OBSOLETEon 05-15-2019 OBSOLETE Refill (CARDMN) KOLTON NAPIER ([id number]) 1945 F Date Time Provider Department 05/15/19 JAMES JOHNSON During your visit today, we recorded the following information about you: Maribel Osorio Rocket Motor Mechanic II 05/16/2019 4:42 PM Signed Call from pharmacy requesting refill. Pending Prescriptions Disp Refills DILTIAZEM 30 MG TABLET 270 tablet 1 Sig: TAKE ONE TABLET BY MOUTH THREE TIMES A DAY FLORENCIA: Yes Patient last seen 05/30/18 Maribel Osorio Rocket Motor Mechanic II Allergies As of Date: 05/15/2019 Noted [...] by JAMES JOHNSON MD on 05/20/19 Normal [facility] CNOVon 05-30-2018 CNOV Office Visit (CARDMN ) KOLTON NAPIER ([id number]) 1945 F Date Time Provider Department 05/30/18 2:00 PM JAMES JOHNSON During your visit today, we recorded the following information about you: Pulse Blood pressure Weight Height 114/minute 140/78 73.9 kg 1.626 m James Johnson MD, 05/30/2018 5:53 PM Signed [facility] Department of Cardiovascular Medicine SECTION OF CARDIAC PACING and ELECTROPHYSIOLOGY OUTPATIENT VISIT DATE May 30, 2018 OUTPATIENT VISIT TYPE NEW PRIMARY CARE PHYSICIAN: Shaheed De La Torre MD ([facility]) [address] [place] [address] IMPRESSION/PLAN: The patient is very pleasant female [...] ECG today: Sinus tachycardia at 114 bpm. NV 154 ms, QRS 86 ms, QTC 460 ms. FOLLOW UP: Return in about 4 months (around 09/27/2018). This note was created using computerized computer clerk software and may therefore include some computer clerk errors including errors in gender and inappropriate words or phrases. I reviewed old records, obtained relevant HPI and PMH from the pt, examined the patient and created the above report. James Johnson MD May 30, 2018 Note to: Shaheed De La Torre MD ([facility]) [address] [place] [address] James Johnson MD, MD 05/30/2018 3:19 PM Signed If symptoms not improving in 7-10 days on low dose diltiazem, call. Referring Provider: REFERRAL, NO(HIST) [[id number]] Allergies As of Date: 05/30/2018 Noted Allergy [...] by JAMES JOHNSON MD on 05/30/18 Normal [facility] ECG COMPLETE W INTERPRETATIO Non 05-30-2018 ECG COMPLETE W INTERPRETATION NAME : KOLTON NAPIER PID : [id number] : 1945 Gender : Female Race : ORD : [id number] Procedure Date : May 30 2018 13:36:13 Edit Date : May 31 2018 13:51:33 Diagnosis:SINUS TACHYCARDIA WITH PREMATURE ATRIAL COMPLEXES OTHERWISE NORMAL ECG Confirmed by MD YAN TAMANNA ([id number]) on 05/31/2018 1:51:26 PM Ventricular Rate : 114 BPM Atrial Rate : 114 BPM P-R Interval : 154 ms QRS Duration : 86 ms Q-T Interval : 334 ms QTC Calculation(Bezet) : 460 ms P [place] : 37 degrees R [place] : 30 degrees T [place] : 46 degrees Test Reason : Location : 314 : J14 Overread By : MD YAN TAMANNA Edited By : MD YAN TAMANNA Referred By : JAMES JOHNSON Acquired by : BHUMIKA SANCHEZ Normal [facility] PROGRESSon 05-30-2018 PROGRESS HNO ID: [id number] Author: James Johnson MD Service: (none) Author Type: Physician Type: Progress Notes Filed: 05/30/2018 5:53 PM Note Text: [facility] Department of Cardiovascular Medicine SECTION OF CARDIAC PACING and ELECTROPHYSIOLOGY OUTPATIENT VISIT DATE May 30, 2018 OUTPATIENT VISIT TYPE NEW PRIMARY CARE PHYSICIAN: Shaheed De La Torre MD ([facility]) [address] [facility] [place] [address] IMPRESSION/PLAN: The patient is very pleasant female [...] ECG today: Sinus tachycardia at 114 bpm. NV 154 ms, QRS 86 ms, QTC 460 ms. FOLLOW UP: Return in about 4 months (around 09/27/2018). This note was created using computerized computer clerk software and may therefore include some computer clerk errors including errors in gender and inappropriate words or phrases. I reviewed old records, obtained relevant HPI and PMH from the pt, examined the patient and created the above report. James Johnson MD May 30, 2018 Note to: Shaheed De La Torre MD ([facility]) [address] [place] [address] Normal [facility] Vital Signs Date Time Vital Sign Value Performing Clinician Faci lity 08-22-2024 13:21-0500 Body height 162.6 cm Shaheed De La Torre MD Work Phone: [facility] 08-22-2024 13:21-0500 Body mass index (BMI) [Ratio] 25.92 kg/m2 Shaheed De La Torre MD Work Phone: [facility] 08-22-2024 13:21-0500 Body temperature 97.5 [degF] Shaheed De La Torre MD Work Phone: [facility] 08-22-2024 13:21-0500 Body weight 68.49 kg Shaheed De La Torre MD Work Phone: [facility] 08-22-2024 13:21-0500 Diastolic blood pressure 50 mm[Hg] Shaheed De La Torre MD Work Phone: [facility] 08-22-2024 13:21-0500 Heart rate 87 /min Shaheed De La Torre MD Work Phone: [facility] 08-22-2024 13:21-0500 Respiratory rate 20 /min Shaheed De La Torre MD Work Phone: [facility] 08-22-2024 13:21-0500 SaO2% (BldA) [Mass fraction] 97 % Shaheed De La Torre MD Work Phone: [facility] 08-22-2024 13:21-0500 Systolic blood pressure 90 mm[Hg] Shaheed De La Torre MD Work Phone: [facility] 08-09-2024 14:50-0500 Body mass index (BMI) [Ratio] 24.65 kg/m2 Christopher Emile DO Work Phone: [facility] 08-09-2024 14:50-0500 Body weight 65.14 kg Christopher Emile DO Work Phone: [facility] 08-09-2024 14:50-0500 Diastolic blood pressure 78 mm[Hg] Christopher Emile DO Work Phone: [facility] 08-09-2024 14:50-0500 Heart rate 73 /min Christopher Emile DO Work Phone: [facility] 08-09-2024 14:50-0500 SaO2% (BldA) [Mass fraction] 96 % Christopher Emile DO Work Phone: [facility] 08-09-2024 14:50-0500 Systolic blood pressure 128 mm[Hg] Christopher Emile DO Work Phone: [facility] 07-26-2024 13:57-0500 Body height 157.5 cm Eliu Galindo MD Work Phone: [facility] 07-26-2024 13:57-0500 Body mass index (BMI) [Ratio] 26.19 kg/m2 Eliu Galindo MD Work Phone: [facility] 07-26-2024 13:57-0500 Body weight 64.95 kg Eliu Galindo MD Work Phone: [facility] 07-26-2024 13:57-0500 Diastolic blood pressure 85 mm[Hg] Eliu Galindo MD Work Phone: [facility] 07-26-2024 13:57-0500 Systolic blood pressure 131 mm[Hg] Eliu Galindo MD Work Phone: [facility] 07-06-2024 10:38-0500 Diastolic blood pressure 102 mm[Hg] Janeth Miguel A FORENSIC ANALYST Work Phone: [facility] 07-06-2024 10:38-0500 Systolic blood pressure 166 mm[Hg] Janeth Aichsaydaz FORENSIC ANALYST Work Phone: [facility] 07-06-2024 10:29-0500 Body mass index (BMI) [Ratio] 24.37 kg/m2 Janeth Aichholz FORENSIC ANALYST Work Phone: [facility] 07-06-2024 10:29-0500 Body temperature 98.1 [degF] Janeth Kianahsaydaz FORENSIC ANALYST Work Phone: [facility] 07-06-2024 10:29-0500 Body weight 64.41 kg Janeth Aichholz FORENSIC ANALYST Work Phone: [facility] 07-06-2024 10:29-0500 Heart rate 86 /min Janeth Aichholz FORENSIC ANALYST Work Phone: [facility] 07-06-2024 10:29-0500 Respiratory rate 18 /min Janeth Aichholz FORENSIC ANALYST Work Phone: [facility] 07-06-2024 10:29-0500 SaO2% (BldA) [Mass fraction] 96 % Janeth Aicrosalia MORALES Work Phone: [facility] 04-03-2024 09:18-0400 Body height 162.6 cm Shaheed De La Torre MD Work Phone: [facility] 04-03-2024 09:18-0400 Body mass index (BMI) [Ratio] 25.92 kg/m2 Shaheed De La Torre MD Work Phone: [facility] 04-03-2024 09:18-0400 Body temperature 95.7 [degF] Shaheed De La Torre MD Work Phone: [facility] 04-03-2024 09:18-0400 Body weight 68.49 kg Shaheed De La Torre MD Work Phone: [facility] 04-03-2024 09:18-0400 Diastolic blood pressure 80 mm[Hg] Shaheed De La Torre MD Work Phone: [facility] 04-03-2024 09:18-0400 Heart rate 86 /min Shaheed De La Torre MD Work Phone: [facility] 04-03-2024 09:18-0400 Respiratory rate 20 /min Shaheed De La Torre MD Work Phone: [facility] 04-03-2024 09:18-0400 SaO2% (BldA) [Mass fraction] 97 % Shaheed De La Torre MD Work Phone: [facility] 04-03-2024 09:18-0400 Systolic blood pressure 140 mm[Hg] Shaheed De La Torre MD Work Phone: [facility] 08-19-2023 14:36-0500 Body height 162.6 cm Shaheed De La Torre MD Work Phone: [facility] 08-19-2023 14:36-0500 Body mass index (BMI) [Ratio] 26.09 kg/m2 Shaheed De La Torre MD Work Phone: [facility] 08-19-2023 14:36-0500 Body temperature 98.1 [degF] Shaheed De La Torre MD Work Phone: [facility] 08-19-2023 14:36-0500 Body weight 68.95 kg Shaheed De La Torre MD Work Phone: [facility] 08-19-2023 14:36-0500 Diastolic blood pressure 70 mm[Hg] Shaheed De La Torre MD Work Phone: [facility] 08-19-2023 14:36-0500 Heart rate 71 /min Shaheed De La Torre MD Work Phone: [facility] 08-19-2023 14:36-0500 SaO2% (BldA) [Mass fraction] 98 % Shaheed De La Torre MD Work Phone: [facility] 08-19-2023 14:36-0500 Systolic blood pressure 108 mm[Hg] Shaheed De La Torre MD Work Phone: [facility] Encounters Encounter Date Encounter Type Care Provider Facility Start: 08-22-2024 End: 08-22-2024 Bamboo flowsheet Shaheed De La Torre MD Work Phone: [facility] Start: 08-22-2024 End: 08-22-2024 Bamboo flowsheet Shaheed De La Torre MD Work Phone: [facility] Start: 08-22-2024 End: 08-22-2024 Telephone encounter Shaheed De La Torre MD Work Phone: [facility] Start: 08-22-2024 End: 08-22-2024 Office outpatient visit 25 minutes Shaheed De La Torre MD Work Phone: [facility] Comment on above: Benign essential hyp ertension (CMS/HCC) (Primary Dx); Major depressive disorder, recurrent, moderate (CMS/HCC); LAUREL (generalized anxiety disorder) (CMS/HCC); Lumbosacral spinal stenosis; Senile dementia of Alzheimer type (CMS/HCC); GERD without esophagitis Start: 08-22-2024 End: 08-22-2024 ambulatory SHAHEED DE LA TORRE Not Available Start: 08-21-2024 End: 08-21-2024 ambulatory Shaheed De La Torre MD Work Phone: [facility] Work Phone: Start: 08-21-2024 End: 08-21-2024 Patient encounter procedure Shaheed De La Torre MD Work Phone: [facility] [place] Work Phone: Start: 08-09-2024 End: 08-09-2024 Office outpatient new 45 minutes Romel Baptiste DO Work Phone: [facility] Comment on above: Moderate late onset Alzheimer's dementia, unspecified whether behavioral, psychotic, or mood disturbance or anxiety (CMS/HCC) (Primary Dx); Meningioma (CMS/HCC); Family history of intracranial aneurysms Start: 08-09-2024 End: 08-09-2024 ambulatory ROMEL BAPTISTE Not Available Start: 08-09-2024 End: 08-09-2024 Bamboo flowsheet Romel Baptiste DO Work Phone: [facility] Start: 08-09-2024 End: 08-09-2024 Bamboo flowsheet Romel Baptiste DO Work Phone: [facility] Start: 07-26-2024 End: 07-26-[address] [facility] Start: 07-26-2024 End: 07-26-2024 Office outpatient new 45 minutes Eliu Galindo MD Work Phone: [facility] Comment on above: Lower abdominal pain (Primary Dx); Rectocele; Unintentional weight loss Start: 07-26-2024 End: 07-26-2024 ambulatory [facility] Start: 07-12-2024 End: 07-12-2024 Refill Shaheed De La Torre MD Work Phone: [facility] Comment on above: LAUREL (generalized anx iety disorder) (CMS/HCC) Start: 07-10-2024 End: 07-10-2024 Telephone encounter Janeth Grady NP Work Phone: [facility] Start: 07-07-2024 End: 07-07-2024 Telephone encounter Janeth Grady FORENSIC ANALYST Work Phone: [facility] Start: 07-06-2024 End: 07-06-2024 Office outpatient visit 25 minutes Janeth Grady NP Work Phone: [facility] Comment on above: Cystocele with recto cheyanne (Primary Dx); Major depressive disorder, recurrent, moderate (CMS/HCC); Chronic obstructive pulmonary disease, unspecified (CMS/HCC); Asthma-COPD overlap syndrome (CMS/HCC); Benign essential hypertension (CMS/HCC); Overweight; Hypokalemia; LAUREL (generalized anxiety disorder) (CMS/HCC); Meningioma (CMS/HCC) Start: 07-06-2024 End: 07-06-2024 ambulatory JANETH MIGUEL A Not Available Start: 07-02-2024 End: 07-02-2024 ambulatory Michael Rodriguez Facility:[facility] Start: 07-02-2024 End: 07-02-2024 Departed Referred Shaheed De La Torre MD Work Phone: [facility] Start: 06-29-2024 End: 06-29-2024 Emergency department patient visit SHAHEED DE LA TORRE [facility] Start: 06-26-2024 End: 06-26-2024 ambulatory EHAB [facility] Start: 06-12-2024 End: 06-12-2024 Refill Shaheed De La Torre MD Work Phone: [facility] Comment on above: MDD (major depressiv e disorder), recurrent episode, moderate (CMS/HCC) Start: 05-30-2024 End: 05-30-2024 Clinisync Result Encounter Generic External Data Provider [facility] Unsolicited Start: 05-30-2024 End: 05-30-2024 Clinisync Result Encounter Generic External Data Provider [facility] External [facility] Unsolicited Start: 04-19-2024 End: 04-19-2024 Refill Shaheed De La Torre MD Work Phone: [facility] Comment on above: LAUREL (generalized anx iety disorder) ([facility]) Start: 04-03-2024 End: 04-03-2024 Bamboo flowsheet Shaheed [...] (Primary Dx); Mild intermittent asthma without complication ([facility]); Benign essential hypertension ([facility]) Start: 03-09-2024 End: 03-09-2024 ambulatory SHAHEED ROBLEDOEREGena Not Available Start: 02-28-2024 End: 03-01-2024 Clinisync Result Encounter Generic External Data Provider [facility] External [facility] Unsolicited Start: 02-28-2024 End: 03-01-2024 Clinisync Result Encounter Generic External Data Provider [facility] External Department Unsolicited Start: 02-17-2024 End: 02-17-2024 ambulatory SHAHEED DE LA TORRE Not Available Start: 09-15-2023 End: 03-13-2024 ambulatory SHAHEED NADERER Not Available Start: 08-23-2023 End: 08-23-2023 ambulatory AB [facility] Start: 08-19-2023 End: 08-19-2023 Office outpatient [...] recurrent episode, mild (HCC) (CMS/HCC) Start: 08-19-2023 Bamboo flowsheet Shaheed De La Torre MD Work Phone: [facility] Start: 08-19-2023 [employer] Chaperone[employer] flowsheet Shaheed De La Torre MD Work Phone: [facility] Start: 09-24-2022 End: 09-25-[address] KARL VAUGHAN Facility:[facility] Start: 07-17-2022 End: 07-18-2022 ambulatory [...] Date Procedure Procedure Detail Performing Clinician Start: 08-21-2024 CT angiography of ne ck vessels Shaheed De La Torre MD Work Phone: Start: 08-21-2024 CT angiography of head Shaheed De La Torre MD Work Phone: Start: 07-26-2024 Urnls dip stick/tabl et rgnt non-auto w/o micrscp Eliu Galindo MD Work Phone: Start: 07-26-2024 MEASURE POST VOID RESIDUAL Eliu Galindo MD Work Phone: Start: 07-02-2024 Urine culture Shaheed fowler MD Work Phone: Start: 05-30-2024 ALL HEMOGLOBIN Generic External Data Provider Start: 02-28-2024 BLOOD CULTURE 2 Generic External Data Provider Start: 02-28-2024 BLOOD CULTURE 1 Generic External Data Provider Plan of Treatment Date Care Activity Detail Author Start: 07-26-2025 Tobacco Screening Tobacco Screening [facility] Start: 02-20-2025 End: 02-20-2025 Patient encounter procedure 02/20/2025 1:15 PM EDT Office Visit [facility] [address] [place] [address] Shaheed De La Torre MD [address] [place] [address] [facility] Start: 09-27-2024 End: 09-27-2024 Patient encounter procedure 09/27/2024 2:00 PM EDT Office Visit AKANKSHA MEJIA [address] [place] [phone] Georgia Clay NP [address] [place] [address] [facility] MEJIA Start: 08-22-2024 End: 08-22-2025 US Thyroid gland US thyroid Imaging Routine Thyroid nodule (CMS/HCC) Expected: 08/22/2024, Expires: 08/22/2025 [facility] Work Phone: Comment on above: Expected: 08/22/2024 , Expires: 08/22/2025 Start: 08-22-2024 End: 08-22-2024 Patient encounter procedure [facility] Comment on above: Arrived Start: 08-09-2024 End: 08-09-2024 Patient encounter procedure [facility] [address] Comment on above: Meningioma (CMS/HCC) ; Memory impairment Start: 08-09-2024 End: 08-09-2025 Cobalamin (Vitamin B12) [Mass/volume] in Serum or Plasma Vitamin B12 Lab Routine Moderate late onset Alzheimer's dementia, unspecified whether behavioral, psychotic, or mood disturbance or anxiety (CMS/HCC) Expected: 08/09/2024 (Approximate), Expires: 08/09/2025 [facility] [employer] Work Phone: Comment on above: Expected: 08/09/2024 (Approximate), Expires: 08/09/2025 Start: 08-09-2024 End: 08-09-2025 CTA Head vessels WO and W contrast IV CT angiogram head Imaging Routine Family history of intracranial aneurysms Expected: 08/09/2024, Expires: 08/09/2025 [facility] [employer] Comment on above: Expected: 08/09/2024 , Expires: 08/09/2025 Start: 08-09-2024 End: 08-09-2025 CTA Neck vessels WO and W contrast IV CT angiogram neck Imaging Routine Family history of intracranial aneurysms Expected: 08/09/2024, Expires: 08/09/2025 [facility] Comment on above: Expected: 08/09/2024 , Expires: 08/09/2025 Start: 04-03-2024 End: 04-03-2024 Patient encounter procedure 04/03/2024 9:15 AM EDT Office Visit [facility] [address] [place] [address] Shaheed De La Torre MD [address] [place] [phone] Arrived [facility] Comment on above: Arrived Start: 03-09-2024 End: 03-09-2024 Patient encounter procedure [facility] Comment on above: Arrived Start: 03-05-2024 Influenza vaccination Influenza Vacc ine (#1) [facility] Start: 08-19-2023 End: 08-19-2023 Patient encounter procedure 08/19/2023 2:30 PM EST [facility] [address] [place] [phone] Shaheed De La Torre MD [address] [place] [address] Arrived [facility] Comment on above: Arrived Start: 08-19-2023 End: 08-19-2024 Basic metabolic 1998 panel - Serum or Plasma Basic metabolic panel Lab Routine Benign essential hypertension (CMS/HCC) Expected: 08/19/2023 (Approximate), Expires: 08/19/2024 [facility] Work Phone: Comment on above: Expected: 08/19/2023 (Approximate), Expires: 08/19/2024 Start: 08-19-2023 End: 08-19-2024 CBC W Auto Differential panel - Blood CBC and differential Lab Routine Encounter for long-term (current) use of medications Expected: 08/19/2023 (Approximate), Expires: 08/19/2024 [facility] Comment on above: Expected: 08/19/2023 (Approximate), Expires: 08/19/2024 Start: 08-19-2023 End: 08-19-2024 Hepatic function 2000 panel - Serum or Plasma Hepatic function panel Lab Routine Encounter for long-term (current) use of medications Expected: 08/19/2023 (Approximate), Expires: 08/19/2024 [facility] Comment on above: Expected: 08/19/2023 (Approximate), Expires: 08/19/2024 Start: 08-19-2023 End: 08-19-2024 Lipid 1996 panel - Serum or Plasma Lipid panel Lab Routine Dyslipidemia (CMS/HCC) Expected: 08/19/2023 (Approximate), Expires: 08/19/2024 [facility] Comment on above: Expected: 08/19/2023 (Approximate), Expires: 08/19/2024 Start: 2010 Fall Risk Screening Fall Risk Screen ing [facility] Start: 1964 DTaP,Tdap and Td Vaccines (1 - Tdap) DTaP,Tdap and Td Vaccines (1 - Tdap) [facility] Start: 1957 Depression Screening Depression Scre ening [facility] Start: 1945 Medicare Annual Wellness (AWV) Medicare Annual Wellness (AWV) [facility] BLOOD CULTURE 1 BLOOD CULTURE 1 Lab Routine 02/28/2024 9:37 AM EDT [facility] BLOOD CULTURE 2 BLOOD CULTURE 2 Lab Routine 02/28/2024 9:42 AM EDT [facility] Immunizations Immunization Date Immunization Notes Care Provider Mike nichole 03-21-2024 influenza, high dose seasonal, preservative-free Janeth Aichholz FORENSIC ANALYST Work Phone: [facility] 03-21-2024 Pneumococcal Conjuga te PCV 20 Janeth Aichholz FORENSIC ANALYST Work Phone: [facility] 10-29-2023 ABRYSVO - Respirator y syncytial virus (RSV), vaccine, bivalent, protein subunit RSV prefusion F, diluent reconstituted, 0.5 mL, PF Janeth Aichholz FORENSIC ANALYST Work Phone: [facility] 04-02-2023 Influenza, High-dose Seasonal, Quadrivalent, Preservative Free Janeth Aichholz FORENSIC ANALYST Work Phone: [facility] 04-02-2023 influenza virus vacc ine, unspecified formulation Generic Provider [facility] 04-14-2022 Influenza, High-dose Seasonal, Quadrivalent, Preservative Free Janeth Aichholz FORENSIC ANALYST Work Phone: [facility] 12-31-2021 zoster vaccine recombinant L mel Aichsaydaz FORENSIC ANALYST Work Phone: [facility] 10-03-2021 pneumococcal polysaccharide vaccine, 23 valent Janeth Aichholz FORENSIC ANALYST Work Phone: [facility] 10-03-2021 zoster vaccine recombinant L mel Aichholz FORENSIC ANALYST Work Phone: [facility] 05-08-2021 Influenza, Seasonal, Quadrivalent, Adjuvanted Janeth Aichholz FORENSIC ANALYST Work Phone: [facility] 04-23-2019 Influenza, injectabl e, Madin Taylor Canine Kidney, quadrivalent with preservative Janeth Aichholz FORENSIC ANALYST Work Phone: [facility] 11-28-2014 pneumococcal conjuga te vaccine, 13 valent Janeth Aichholz FORENSIC ANALYST Work Phone: [facility] 10-10-2014 zoster vaccine, live Janeth chholz FORENSIC ANALYST Work Phone: [facility] 04-05-2009 pneumococcal polysaccharide vaccine, 23 valent Janeth Aichholz FORENSIC ANALYST Work Phone: [facility] Payers Date Payer Category Payer Self-pay 2022 Medicaid AETNA MEDICARE A DVANTAGE [id number] 2022 Medicare AETNA MEDICARE A DVANTAGE AETNA MEDICARE REPLACEMENT [id number] 2022-Present [address] [place] [address] [id number] 2022 Medicare HMO AETNA MEDICARE [id number] 1959 Medicare [id number] 1945 Unknown [id number] 2.16.840.1.279648.3.579.2.593 1945 Unknown [id number] 2.16.840.1.331334.3.579.2.593 1945 Unknown [id number] 2.16.840.1.457577.3.579.2.593 1945 Unknown [id number] 2.16.840.1.841932.3.579.2.593 1945 Unknown [id number] 2.16.840.1.214440.3.579.2.593 1945 Unknown [id number] 2.16.840.1.301928.3.579.2.593 1945 Unknown [id number] 2.16.840.1.055232.3.579.2.593 1945 Unknown [id number] 2.16.840.1.980907.3.579.2.593 1945 Unknown [id number] 2.16.840.1.636866.3.579.2.593 1945 Unknown [id number] 2.16.840.1.826468.3.579.2.593 1945 Unknown [id number] 2.16.840.1.998394.3.579.2.593 1945 Unknown [id number] 2.16.840.1.332303.3.579.2.593 1945 Unknown [id number] 2.16.840.1.003671.3.579.2.593 1945 Unknown [id number] 2.16.840.1.788637.3.579.2.1286 1945 Unknown [id number] 2.16.840.1.830859.3.579.2.1286 1945 Unknown [id number] 2.16.840.1.376585.3.579.2.1286 1945 Unknown [id number] 2.16.840.1.792895.3.579.2.1259 1945 Unknown [id number] 2.840.1.917888.3.579.2.1259 1945 Unknown [id number] 2.16840.1.196241.3.579.2.1259 1945 Unknown [id number] 2.16.840.1.754745.3.579.2.1259 1945 Unknown [id number] 2.16.840.1.403806.3.579.2.1259 1945 Unknown [id number] 2.16840.1.262682.3.579.2.1259 1945 Unknown [id number] 2.16.840.1.899666.3.579.2.1259 Unknown [id number] 2.16840.1.724146.3.579.2.531 Unknown [id number] 2.16.840.1.906726.3.579.2.531 Social History Date Type Detail Facility Start: 06-10-2023 End: 08-19-2023 Tobacco smoking status ILIS Never smoked tobacco [facility] Start: 06-10-2023 End: 08-19-2023 Tobacco use and exposure Smokeless tobacco non-user [facility] Start: 06-10-2023 End: 08-22-2024 Alcohol intake Ex-drinker (finding) [facility] Start: 06-10-2023 End: 08-22-2024 History of Social function [facility] Start: 06-10-2023 End: 08-22-2024 Tobacco use panel [facility] Start: 06-10-2023 Alcohol Comment holiday [facility] Start: 1945 Sex Assigned At Not on file [facility] Childcare Unknown [facility] Start: 02-07-2015 End: 08-22-2024 Sex Female (finding) [facility] Tobacco smoking status NHIS Unknown if ever smoked [facility] Work Phone: Start: 1945 Sex Assigned At Female F [facility] NEGATED: Highlighted rowStart: NINF History of tobacco use Passive smoker [facility] Goals Date Patient Goal Desired Activity /State Personal health goal Comment on above: Formatting of this n ote might be different from the original. Evaluation of progress towards goal: home at [place] Clinical Notes 08-19-2023 to 08-22-2024 Telephone Encounter - Shaheed De La Torre MD - 08/22/2024 4:04 PM ESTTelephone Encounter - Shaheed De La Torre MD - 08/22/2024 4:04 PM Clarence De La Torre MD - 08/22/2024 1:59 PM EST Note Date & Type Note Facility 08-22-[address] scan ordered by neurology found nodules in thyroid. Need dedicated thyroid US. Order in chart, please fax to hospital. [facility] 08-22-[address] scan ordered by neurology found nodules in thyroid. Need dedicated thyroid US. Order in chart, please fax to hospital. documented in this encounter [facility] 08-22-2024 History of Presen t illness Narrative Associated Problem(s): Major depressive disorder, recurrent, moderate (CMS/HCC) Symptoms controlled with prozac and continue. Associated Problem(s): Lumbosacral spinal stenosis Occasional pain but tolerable and use OTC PRN. Associated Problem(s): GERD without esophagitis Symptoms controlled with omeprazole and continue. Associated Problem(s): LAUREL (generalized anxiety disorder) (CMS/HCC) Symptoms controlled with prozac and continue. Use xanax PRN. Associated Problem(s): Benign essential hypertension (CMS/HCC) BP low but no signs of low BP. Monitor PRN. Associated Problem(s): Senile dementia of Alzheimer type (CMS/HCC) Follow with neurology. Images from the original note were not included. Subjective Patient ID: Kolton Napier is a 78 y.o. female who presents for Follow-up (6 m). Follow up HTN, depression, anxiety, back pain, and GERD. Checking BP PRN and typically controlled. BP [...] legs. Using OTC PRN and pain tolerable. GERD controlled with omeprazole. Denies epigastric pain or burning and not waking up with symptoms. Following with neurology for dementia. Review of Systems Respiratory: Negative for cough, [...] Benign essential hypertension (CMS/HCC) - Primary BP low but no signs of low BP. Monitor PRN. LAUREL (generalized anxiety disorder) (CMS/HCC) Symptoms controlled with prozac and continue. Use xanax PRN. GERD without esophagitis Symptoms controlled with omeprazole and continue. Lumbosacral spinal stenosis Occasional pain but tolerable and use OTC PRN. Major depressive disorder, recurrent, moderate (CMS/HCC) Symptoms controlled with prozac and continue. Senile dementia of Alzheimer type (CMS/HCC) Follow with neurology. documented in this encounter [facility] 08-21-2024 Radiology Diagnostic study note [facility] [address] [place] [address] [place] [address] CT Scan Report Signed Patient: Kolton Napier MR#: [id number] : 1945 Acct:[id number] Age/Sex: 78 / F ADM Date: 5 Loc: CT Room: Type: [facility] Attending Dr: Romel Baptiste DO Copies to: Romel Baptiste DO~ Ordering Provider: Romel Baptiste DO Date of Service: 08/21/24 CT/CT angio neck: Z82.49 ([id number]) CT/CT angio head: FAMILY HX CT angio head, CT angio neck 08/21/2024 1:57 PM SIGNS AND SYMPTOMS: Family history of aneurysm, forgetfulness CONTRAST: 90 mL of intravenous Isovue-370 TECHNIQUE: Multi-detector CT angiography axial slices of the head were obtained before and during intravenous administration of IV contrast material. Sagittal, coronal, and 3-D reconstructions were performed and viewed on a separate workstation. CT was performed with one or more of the following dose reduction techniques: Automated exposure control, adjustment of the mA and/or kV accordingto patient size, or use of iterative reconstruction technique. Stenoses were measured using the NASCET criteria. COMPARISON: None. FINDINGS: CTA HEAD: The superior cerebellar arteries, posterior inferior cerebellar arteries, and the basilar artery are within normal limits. The posterior cerebral arteries areunremarkable. There is an extra-axial dural based enhancing and partially calcified 2.6 x 2.8 x 2.1 cm meningioma projecting from the lateral aspect of the left sphenoidal ridge. Calcified plaque is noted in the intracranial segments of the internal carotid arteries. There are normal anterior and middle cerebral arteries. Anterior communicating artery is patent. Posterior communicating arteries are present. The deep venous system and dural venous systems appear to be patent. No bony abnormalities are appreciated. CTA NECK: There is calcified plaque is noted in the aortic arch. There is a normal three-vessel arch configuration. The subclavian arteries are within normal limits. The vertebral arteries arise from the subclavian arteries and are normal in course and caliber up to the skull base. Mild calcified plaque is noted in the carotid bifurcations without significant stenosis. Visualized lung parenchyma is clear. No acute bony abnormalities are identified. Degenerative changes are noted in the cervical spine and thoracic spine. The paraspinous soft tissues are within normal limits. Heterogeneous thyroid nodules are noted bilaterally suspicious for multinodular goiter. Ultrasound correlation is recommended however as malignancy is not excluded. CT/CT angio head IMPRESSION: There is an extra-axial dural based enhancing and partially calcified 2.6 x 2.8 x 2.1 cm meningioma projecting from the lateral aspect of the left sphenoidal ridge. No evidence of focal stenosis, aneurysmal dilatation, dissection or occlusion. Heterogeneous thyroid nodules are noted bilaterally suspicious for multinodular goiter. Ultrasound correlation is recommended however as malignancy is not excluded. Impression dictated by: Tu Lopez M.D.08/21/2024 7:46 PM Dictation Location: [place] [address] Transcribed By: MATTHIAS 08/21/241945 Dictated By: Tu Lopez II, MD 08/21/241938 Signed By: 08/21/241945 [facility] Work Phone: 08-09-2024 History of Presen t illness Narrative Images from the original note were not included. Chief complaint: Memory impairment Subjective Kolton Napier, 78 y.o., female Patient presents today for a neurologic consult at the request of Janeth Grady CNP for meningioma, memory impairment. She is accompanied by her . Her states she started having issues about one year ago and they have continued to get worse. She will ask her for something he will give it to her and she will set it down then ask again. Patient states she sleeps well at night about 8-9 hours. She admits to an occasional vivid dream. They deny any hallucinations. Her admits to an increase in agitation. Her father and sister had dementia. MOCA 07/03. Review of Systems Constitutional: Negative for appetite change, fatigue and fever. Respiratory: Negative for cough, shortness of breath and wheezing. Cardiovascular: Negative for chest pain, palpitations and leg swelling. Gastrointestinal: Negative for abdominal pain, constipation, diarrhea and nausea. Musculoskeletal: Negative for arthralgias, gait problem and myalgias. Neurological: Negative for dizziness, tremors, numbness and headaches. Memory impairment Past Medical History: Diagnosis Date Aortic stenosis Arthritis of foot, left At low risk for fall Benign essential hypertension (CMS/HCC) Constipation due to opioid therapy Dyshidrotic eczema Dyslipidemia ([facility]) Encounter for long-term (current) use of medications Family history of colon cancer LAUREL (generalized anxiety disorder) ([facility]) GERD without esophagitis Hypokalemia Left foot pain Lumbosacral spinal stenosis Mild intermittent asthma without complication ([facility]) Overweight (BMI 25.0-29.9) Seasonal allergic rhinitis due to pollen Sinus tachycardia Subtalar joint instability, left Superficial phlebitis and thrombophlebitis of right lower extremity Varicose veins of bilateral lower extremities with pain Past Surgical History: Procedure Laterality Date APPENDECTOMY HYSTERECTOMY LASER ABLATION Right 02/03/2022 EVLT or right SSV OTHER SURGICAL HISTORY Right 03/19/2022 Sclerotherapy also 03/24/2022, 04/02/2022 OTHER SURGICAL HISTORY Left 03/10/2022 Sclerotherapy 03/24/2022, 04/16/2022 Family History Problem Relation Name Age of Onset Cancer Mother Breast cancer, Stomach cancer Hypertension Mother Heart disease Mother Diabetes Mother Stroke Father Asthma Father Alzheimer's disease Father COPD Brother Hypertension Brother Heart disease Brother Diabetes Brother Asthma Maternal Grandmother Social History Tobacco Use Smoking status: Never Passive exposure: Never Smokeless tobacco: Never Substance Use Topics Alcohol use: Not Currently Comment: holiday Allergies: Cefdinir, Cephalosporins, Penicillins, and Albuterol Vitals: 08/09/24 1450 BP: 128/78 Pulse: 73 SpO2: 96% Body mass index is 24.65 kg/m . weight: 143 lb 9.6 oz Neurologic exam: Mental status: Awake, alert to person, place and time. Kristopher cognitive assessment: 07/03 Language is fluent without aphasia. Attention and concentration are normal. Fund of knowledge is appropriate for level of education. Cranial nerves: CN II: Visual acuity is normal. Visual da silva full to confrontation. CN III, IV, : pupils equal round and reactive to light. Extraocular movements intact. No ptosis present. CN V: Facial sensation is normal. CN VII: Full and symmetric facial movement. CN VIII: Hearing is normal to finger rub bilaterally: CN IX and X: Palate elevates symmetrically. CN XI: Shoulder shrug is normal bilaterally. CN XII: Tongue is midline without atrophy or fasciculation. Motor: RUE Strength deltoid, , biceps , triceps , wrist extensors , wrist flexor , air conditioning mechanic industrial strength 5/5. LUE Strength deltoid , biceps , triceps , wrist extensors , wrist flexor , air conditioning mechanic industrial strength 5/5. RLE Strength illopsoas, quadriceps, tibialis anterior, and gastrocnemius strength 5/5. LLE Strength illopsoas, quadriceps, tibialis anterior, and gastrocnemius strength 5/5. Normal tone x4 extremities. Bulk is normal. Sensory: Sensation is intact to light touch throughout Four extremities. Reflexes: RUE biceps reflex 2+ brachioradialis reflex 2+ . LUE biceps reflex 2+ brachioradialis reflex 2+ . RLE knee reflex 2+ . LLE knee reflex 2+ . Garcia's sign negative. Coordination: Dmejhw-kf-ioim testing and rapid alternating movements are normal Gait: Normal Review and summary of old records: [employer] cognitive assessment at [facility] on 08/09/2024: 07/03 Assessment/Plan Diagnoses and all orders for this visit: Moderate late onset Alzheimer's dementia, unspecified whether behavioral, psychotic, or mood disturbance or anxiety (CMS/HCC) It is my impression that the patient has memory impairment. [employer] cognitive assessment on 08/09/2024 was 07/03. CT of the brain did identify a meningioma which was 28 mm in the left frontal region. Otherwise no acute process was identified. Thyroid stimulating hormone was normal on 07/02/2024. Plan: Check vitamin B12 level Increase memantine to 10 mg p.o. b.I.d.. Monitor for need to control agitation. No driving based on low Kristopher cognitive assessment score Meningioma (CMS/HCC) Meningioma was incidentally identified on brain imaging. Given the patient's degree of memory impairment at age of 78 and other comorbidities I do not believe the patient's be a reasonable surgical candidate I do not believe the lesion to be really clinically affecting the patient at this time. Monitor clinically Family history of intracranial aneurysm Patient does have a history of ruptured aneurysm in her sister which lead to . Based on this we certainly need to screen for intracranial aneurysm. Plan: CT angiogram of the head and neck Signs and symptoms of stroke discussed in detail and the patient understands to proceed to the emergency department right away with any signs or symptoms Suggested tight control of blood pressure as well. We had an extensive discussion today about no driving. The patient's was also present for the discussion and understands the plan. provided additional history as well. He was present for the encounter entirety and in agreement with the plan. Pt has been fully educated on their diagnosis, lab results, treatment options, follow up plan, return instructions, and discussion of mental health issues documented in this encounter [facility] 07-26-2024 History of Presen t illness Narrative SUBJECTIVE Chief Complaint: bladder prolapse, abdominal pain HPI Ms. Kolton Napier is a 78 y.o. female who is referred by Janeth Sanchez NP for suspected cystocele. Patient had lower abdominal pain, bloating, fatigue, decreased appetite and presented to the ED on 06/29/24. Examination was unremarkable. She had a CTAP that did not show any acute findings. She was ultimately discharged on ciprofloxacin for 7 days. She had follow up with her PCP office and at that visit on 07/07/24, she was told she had prolapse of her bladder and was told this is possibly causing her pain. She does not notice a bulge on a daily basis. She feels like she has complete bladder emptying. She denies dysuria. She has very rare urinary incontinence. She is having bowel movements, occasional constipation for which she takes miralax for. Of note, she does have a 24 pound weight loss in the last 4 weeks. She denies a history of abnormal pap results. Her last pap was unknown date. 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: Abdominal hysterectomy, likely BSO - at the time of surgery for ruptured appendicitis () Last colonoscopy - in the last couple years (normal per patient), last colonoscopy for review was in 2018 Past Medical History: Diagnosis Date Anxiety Arrhythmia tachycardia Arthritis Asthma Colon polyp Depression GERD (gastroesophageal reflux disease) Hyperlipidemia Hypertension Shortness of breath Visual impairment Past Surgical History: Procedure Laterality Date APPENDECTOMY BLADDER SURGERY CHOLECYSTECTOMY COLONOSCOPY N/A 03/03/2018 Performed by Yo Dunham DO at [facility] EGD N/A 03/03/2018 Performed by Yo Dunham DO at [facility] HYSTERECTOMY Social History Tobacco Use Smoking status: Never Smokeless tobacco: Never Vaping Use Vaping status: Never Used Substance Use Topics Alcohol use: Not Currently Drug use: Never Family History Problem Relation Age of Onset Breast cancer Mother Stomach cancer Mother Hypertension Mother Coronary artery disease Mother Diabetes type II Mother Stroke Father Alzheimer's disease Father Breast cancer Sister Lung cancer Sister Colon cancer Brother No Known Problems Daughter Heart attack Son No Known Problems Son No Known Problems Son Current Outpatient Medications: ALPRAZolam (XANAX) 0.5 mg tablet, Take 1 tablet (0.5 mg total) by mouth in the morning. TAKE 1/2 TABLET BY MOUTH THREE TIMES A DAY NEEDED FOR ANXIETY., Disp: , Rfl: benzonatate (TESSALON PERLES) 200 mg capsule, Take 1 capsule (200 mg total) by mouth 3 (three) times a day., Disp: , Rfl: dilTIAZem (CARDIZEM) 30 mg tablet, Take 1 tablet (30 mg total) by mouth 3 (three) times a day., Disp: , Rfl: FLUoxetine (PROzac) 20 mg capsule, Take 1 capsule (20 mg total) by mouth in the morning. Half tab daily ., Disp: , Rfl: loratadine (CLARITIN) 10 mg tablet, Take 1 tablet (10 mg total) by mouth in the morning., Disp: , Rfl: losartan-hydroCHLOROthiazide (HYZAAR) 100-25 mg per tablet, Take 1 tablet by mouth in the morning., Disp: , Rfl: omeprazole (PriLOSEC) 40 mg capsule, Take 1 capsule (40 mg total) by mouth in the morning and 1 capsule (40 mg total) before bedtime., Disp: , Rfl: potassium chloride (K-DUR,KLOR-CON) 10 MEQ CR tablet, Take 1 tablet (10 mEq total) by mouth in the morning and 1 tablet (10 mEq total) before bedtime., Disp: , Rfl: rosuvastatin (CRESTOR) 10 mg tablet, Take 1 tablet (10 mg total) by mouth in the morning., Disp: , Rfl: sod sulf-pot chloride-mag sulf 1.479-0.188- 0.225 gram tablet, Please see instructional sheet given by physicians office., Disp: 24 tablet, Rfl: 0 VENTOLIN HFA 90 mcg/actuation inhaler, Inhale 2 puffs as needed for shortness of breath., Disp: , Rfl: Current Facility-Administered Medications: albuterol (PROVENTIL,VENTOLIN) nebulizer solution 2.5 mg, 2.5 mg, nebulization, Once PRN, Yandy L Kregel, MANAGER OF ADMINISTRATION-EXTENSION SPECIALIST albuterol (PROVENTIL,VENTOLIN) nebulizer solution 2.5 mg, 2.5 mg, nebulization, Once PRN, Yandy Yolanda Sanchez, MANAGER OF ADMINISTRATION-EXTENSION SPECIALIST ALLERGIES Albuterol sulfate, Cefdinir, and Penicillins Review of Systems Constitutional: Positive for appetite change, fatigue and unexpected weight change. HENT: Negative. Respiratory: Negative. Cardiovascular: Negative. Gastrointestinal: Positive for abdominal distention, abdominal pain and constipation. Negative for blood in stool. Genitourinary: Negative for difficulty urinating, dysuria, frequency, hematuria and urgency. Musculoskeletal: Negative. Skin: Negative. Neurological: Negative. Psychiatric/Behavioral: Negative. OBJECTIVE VITAL SIGNS BP 131/85 Ht 157.5 cm (5' 2 ) Wt 65 kg (143 lb 3.2 oz) LMP (LMP Unknown) BMI 26.19 kg/m PHYSICAL EXAM Constitutional: General: She is not in acute distress. Cardiovascular: Rate: Normal rate. Lower extremity edema: none. Pulmonary: Effort: No respiratory distress, normal effort. Abdominal: General: There is no distension. Palpations: Abdomen is soft. There is no hepatomegaly, splenomegaly or mass. Tenderness: There is abdominal tenderness to palpation in the RLQ. Hernia: No hernia is observable. Musculoskeletal: Gait: normal Skin: General: Skin is warm and dry. Coloration: Skin is not cyanotic or jaundiced. Neurological: Mental Status: She is alert and oriented to person, place, and time. Psychiatric: Mood and Affect: Mood and affect normal. Genitourinary: External exam Vulva and introitus: Normal appearance for age, no lesions, no erythema. Urethra: No prolapse, mass, urethral pain or urethral lesion. Bladder: Not tender, no distention. Bartholin's glands: Normal size, non-tender. Perineum/anus: Normal appearance, no lesions or hemorrhoids. Internal exam Vagina: Mucosa is atrophic, without erythema, and without lesions,no discharge. Cervix and uterus: surgically absent Adnexa: Bimanual exam limited per body habitus, ovaries not palpable, no tenderness or masses. Rectum: TAMIR deferred. Anterior Wall -3 Aa Anterior Wall -3 Ba Cervix or Cuff -5 C Genital Hiatus 2 gH Perineal Body 2 pB TVL 6 TVL Posterior Wall -1 Ap Posterior Wall -1 Bp Posterior Fornix N/A cervix absent D Standing Stress Test: positive Voided Volume: 0mL, PVR 37mL Results for orders placed or performed in visit on 07/26/24 Measure post void residual Collection Time: 07/26/24 12:00 AM Result Value Ref Range Volume 37 ml POCT urinalysis dipstick only Collection Time: 07/26/24 2:59 PM Result Value Ref Range External Poct Urine Color yellow External Poct Urine Appearance cloudy External Poct Urine Ketones Negative External Poct Urine Blood Trace External Poct Urine Ph 6.5 External Poct Urine Protein Negative External Poct Urine Nitrite Negative External Poct Urine Leukocyte Esterase Negative ASSESSMENT/PLAN ICD-10-CM 1. Lower abdominal pain R10.30 2. Rectocele N81.6 Impression and Plan: Kolton Napier is a 78 yo female who presents today for evaluation of possible cystocele. On exam, there is an [employer] early Stage 2 posterior compartment prolapse/rectocele. There is no evidence of anterior compartment or apical prolapse. Patient is not symptomatic from her prolapse so recommendation is for expectant management and maintenance of regular bowel movements. Based on her clinical presentation and physical examination, the small rectocele is likely not contributing to the patient's symptoms of abdominal pain, bloating, and weight loss. Her CTAP was reviewed and it does not appear that the patient has ovaries and adnexal masses were not palpated on exam. Would recommend that she follow up with her PCP regarding this symptoms for further workup and possible consideration of colonoscopy to evaluate cause of her pain. Danielle Waddell MD Ob-Signal Timer Resident, PGY-3 I attest that I have personally seen and examined this patient and participated in the critical/verduzco portions of the service. I was directly involved in the management and treatment plan of the patient. I have reviewed and agree with the resident's evaluation and plan and note as documented above. Ms. Napier is a pleasant, 78-year-old, referred for evaluation of prolapse. She denies symptoms of vaginal bulge. She has been recently experiencing lower abdominal pain, abdominal bloating, fatigue, decreased appetite, unintentional weight loss. She was referred here by her primary care provider for concerns of a prolapse potentially contributing to these symptoms. She did have a recent CT of the abdomen pelvis which did not reveal any acute findings. CBC, CMP, and lipase on June 29 were all within normal limits. She denies abnormal vaginal bleeding. She denies abnormal vaginal discharge. No dysuria or gross hematuria. No melena or hematochezia. 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: Abdominal hysterectomy, likely BSO - at the time of surgery for ruptured appendicitis () Past Medical History: Diagnosis Date Anxiety Arrhythmia tachycardia Arthritis Asthma Colon polyp Depression GERD (gastroesophageal reflux disease) Hyperlipidemia Hypertension Shortness of breath Visual impairment Past Surgical History: Procedure Laterality Date APPENDECTOMY BLADDER SURGERY CHOLECYSTECTOMY COLONOSCOPY N/A 03/03/2018 Performed by Yo Dunham DO at [facility] EGD N/A 03/03/2018 Performed by Yo Dunham DO at [facility] HYSTERECTOMY Current Outpatient Medications Medication Instructions ALPRAZolam (XANAX) 0.5 mg, Daily benzonatate (TESSALON PERLES) 200 mg, 3 times daily dilTIAZem (CARDIZEM) 30 mg, 3 times daily FLUoxetine (PROZAC) 20 mg, Daily loratadine (CLARITIN) 10 mg, Daily losartan-hydroCHLOROthiazide (HYZAAR) 100-25 mg per tablet 1 tablet, Daily omeprazole (PRILOSEC) 40 mg, 2 times daily potassium chloride (K-DUR,KLOR-CON) 10 MEQ CR tablet 10 mEq, 2 times daily rosuvastatin (CRESTOR) 10 mg, Daily sod sulf-pot chloride-mag sulf 1.479-0.188- 0.225 gram tablet Please see instructional sheet given by physicians office. VENTOLIN HFA 90 mcg/actuation inhaler 2 puffs, As needed Allergies Allergen Reactions Albuterol Sulfate Tachycardia Cefdinir Diarrhea and Vomiting Penicillins Nausea PE: BP 131/85 Ht 157.5 cm (5' 2 ) Wt 65 kg (143 lb 3.2 oz) LMP (LMP Unknown) BMI 26.19 kg/m Vaginal examination reveals a surgically absent uterus and cervix. Adnexa are not palpable. She has atrophic vaginitis consistent with her age. There is no evidence of significant anterior compartment or apical prolapse. She has a very small rectocele to -1. A/P: 1. Lower abdominal pain (Primary) - [facility] - [place], [place] - POCT urinalysis dipstick only - Measure post void residual - Urinalysis; Future - Urine Culture; Future 2. Rectocele 3. Unintentional weight loss Examination today reveals a very small stage II posterior compartment prolapse. She is largely asymptomatic from a prolapse standpoint. I do not think this small rectocele is contributing to her abdominal pain, nausea, bloating, or unintentional weight loss. Recent imaging did not reveal any adnexal abnormalities and we suspect her ovaries were probably removed at the time of her hysterectomy. No urological complaints. May benefit from diagnostic colonoscopy given her symptoms although her reports that she had a normal screening colonoscopy within the last few years. Advise her to follow up with her primary care provider. documented in this encounter [facility] 07-12-2024 Telephone encounter Note [facility] 07-12-2024 Miscellaneous Notes documented in this encounter [facility] 07-10-2024 Telephone encounter Note I did send in the referral, on 07/06/24, The dr's name is Eliu Galindo, in [place] phone number to office is [phone]. They could try calling to see if they could get an appt sooner than later. Unfortunately there isnt much else pain willett to order for her that wouldn't potentially interact with some of her other meds [place] [facility] 07-10-2024 Miscellaneous Notes I did send in the referral, on 07/06/24, The dr's name is Eliu Galindo, in [place] phone number to office is [phone]. They could try calling to see if they could get an appt sooner than later. Unfortunately there isnt much else pain willett to order for her that wouldn't potentially interact with some of her other meds [place] documented in this encounter [facility] 07-07-2024 Telephone encounter Note Please tell pt/ that I did send 2 referrals: UroGyn in [place] for bladder /rectal pain issue Neurology in [place]: for memory issues I did speak to Dr De La Torre about something for pain: I did send in pain medication tramadol, she is only to take if severe pain, and no more than 1 pill every 12 hours. Also at her appt we talked about quitting the lactulose liquid from the hospital (for constipation) as it was making her sick. Does she still have miralax at home? If she does take that in place of the lactulose. It is VERY important that if she takes the pain pills she is also taking something for her bowels to keep them moving as well. Also very sparingly use the pain meds, as they can cause interactions with her other meds causing more confusion, as well as fatigue. Important that she drink plenty of fluids [place] [facility] 07-07-2024 Miscellaneous Notes Please tell pt/ that I did send 2 referrals: UroGyn in [place] for bladder /rectal pain issue Neurology in [place]: for memory issues I did speak to Dr De La Torre about something for pain: I did send in pain medication tramadol, she is only to take if severe pain, and no more than 1 pill every 12 hours. Also at her appt we talked about quitting the lactulose liquid from the hospital (for constipation) as it was making her sick. Does she still have miralax at home? If she does take that in place of the lactulose. It is VERY important that if she takes the pain pills she is also taking something for her bowels to keep them moving as well. Also very sparingly use the pain meds, as they can cause interactions with her other meds causing more confusion, as well as fatigue. Important that she drink plenty of fluids [place] documented in this encounter [facility] 07-06-2024 History of Presen t illness Narrative Associated Problem(s): Meningioma (CMS/HCC) Noted on CT head at [facility] , 07/02/24, will speak with Radiologist to see if been present or not Home health care came this morning and is visiting them once or twice a week Pt has complaints of tailbone/rectal pain. Pt currently has nausea since taking her tylenol this morning Pt has concerns of memory loss both terminal gauger and short term- states it comes and goes regularly Images from the original note were not included. Kolton Napier is a 78 y.o. female presents with chief complaint of Altered Mental Status and hospital visit HPI: Here for a hospital follow up and multiple other c/o at this time: Abd pain: [facility] on 06/27/24, then [facility] 06/29/24, and then [facility] on 07/02/24 See scans from this visit: Her primary complaint today is pain/pressure in rectal region. She has some nausea which she reports is coming from lactulose med that she was prescribed. No bloody stools or emesis She does wear a brief incase of an accident. 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 ciprofloxacin (CIPRO) 500 mg, Oral, 2 times daily cyclobenzaprine (FLEXERIL) 10 mg, Oral, 3 times daily dicyclomine (BENTYL) 20 mg, Oral, 4 times daily PRN dilTIAZem (Cardizem) 60 MG immediate release tablet 1 tablet, Oral, 3 times daily FiberCon 1,250 mg, Oral, Daily fluconazole (Diflucan) 100 MG tablet FLUoxetine (PROZAC) 40 mg, Oral, Daily Nblolyrrxzu-Rvoblvehq-Bmelou (Trelegy Ellipta) 100-62.5-25 MCG/ACT aerosol powder ketoconazole (NIZOral) 2 % cream 1 application , 2 times daily lactulose (ENULOSE) 30 g, 2 times daily loratadine (CLARITIN) 10 mg, Oral, Daily losartan-hydroCHLOROthiazide (Hyzaar) 100-25 MG tablet 1 tablet, Oral, Daily Memantine HCl ER 7 MG capsule sustained-release 24 hr 1 tablet, Oral, Daily nystatin (Mycostatin) [id number] UNIT/GM powder 1 application , Topical, 2 times daily omeprazole (PRILOSEC) 40 mg, Oral, Daily before breakfast, Do not crush or chew. ondansetron ODT (ZOFRAN-ODT) 4 mg, Oral, Every 8 hours PRN potassium chloride CR (K-Tab) 20 MEQ ER tablet 20 mEq, Oral, 2 times daily rosuvastatin (CRESTOR) 10 mg, Oral, Daily triamcinolone (Kenalog) 0.1 % cream ALLERGIES: Allergies Allergen Reactions Cefdinir Diarrhea and GI intolerance Cephalosporins Diarrhea and GI intolerance Penicillins GI intolerance Albuterol Palpitations REVIEW OF SYMPTOMS: Review of Systems Constitutional: Negative for appetite change, chills and fever. HENT: Negative for congestion, ear pain and sore throat. Eyes: Negative for pain, discharge, redness and visual disturbance. Respiratory: Negative for cough, shortness of breath and wheezing. Cardiovascular: Negative for chest pain, palpitations and leg swelling. Gastrointestinal: Positive for nausea. Negative for abdominal pain, blood in stool, constipation, diarrhea and vomiting. Genitourinary: Negative for difficulty urinating, dysuria and frequency. Musculoskeletal: Positive for back pain. Negative for arthralgias, joint swelling and myalgias. Skin: Negative for color change, pallor, rash and wound. Neurological: Negative for dizziness, tremors, seizures, syncope and headaches. Psychiatric/Behavioral: Negative for behavioral problems, self-injury and suicidal ideas. The patient is nervous/anxious. Hematological: Does not bruise/bleed easily. Endocrine: Negative for polydipsia, polyphagia and polyuria. Allergic/Immunologic: Negative for environmental allergies and food allergies. PAST MEDICAL HISTORY Past Medical History: Diagnosis Date Aortic stenosis Arthritis of foot, left At low risk for fall Benign essential hypertension (CMS/HCC) Constipation due to opioid therapy Dyshidrotic eczema Dyslipidemia (CMS/HCC) Encounter for long-term (current) use of medications Family history of colon cancer LAUREL (generalized anxiety disorder) (CMS/HCC) GERD without esophagitis Hypokalemia Left foot pain Lumbosacral spinal stenosis Mild intermittent asthma without complication (CMS/HCC) Overweight (BMI 25.0-29.9) Seasonal allergic rhinitis due to pollen Sinus tachycardia Subtalar joint instability, left Superficial phlebitis and thrombophlebitis of right lower extremity Varicose veins of bilateral lower extremities with pain Past Surgical History: Procedure Laterality Date APPENDECTOMY HYSTERECTOMY LASER ABLATION Right 02/03/2022 EVLT or right SSV OTHER SURGICAL HISTORY Right 03/19/2022 Sclerotherapy also 03/24/2022, 04/02/2022 OTHER SURGICAL HISTORY Left 03/10/2022 Sclerotherapy 03/24/2022, 04/16/2022 family history includes Alzheimer's disease in her father; Asthma in her father and maternal grandmother; COPD in her brother; Cancer in her mother; Diabetes in her brother and mother; Heart disease in her brother and mother; Hypertension in her brother and mother; Stroke in her father. OBJECTIVE: Visit Vitals BP (!) 166/102 (BP Location: Left arm, Patient Position: Sitting, BP Cuff Size: Adult long) Pulse 86 Temp 98.1 F (Temporal) Resp 18 Wt 142 lb SpO2 96% BMI 24.37 kg/m Smoking Status Never BSA 1.71 m Physical Exam Vitals and nursing note reviewed. Constitutional: General: She is not in acute distress. Appearance: Normal appearance. She is not ill-appearing. HENT: Head: Normocephalic and atraumatic. Right Ear: Tympanic membrane, ear canal and external ear normal. Left Ear: Tympanic membrane, ear canal and external ear normal. Nose: Nose normal. No congestion or rhinorrhea. Mouth/Throat: Mouth: Mucous membranes are moist. Pharynx: No oropharyngeal exudate or posterior oropharyngeal erythema. Eyes: Extraocular Movements: Extraocular movements intact. Conjunctiva/sclera: Conjunctivae normal. Pupils: Pupils are equal, round, and reactive to light. Neck: Vascular: No carotid bruit. Cardiovascular: Rate and Rhythm: Normal rate and regular rhythm. Pulses: Normal pulses. Heart sounds: Normal heart sounds. Pulmonary: Effort: Pulmonary effort is normal. Breath sounds: Normal breath sounds. No wheezing or rales. Abdominal: General: Bowel sounds are normal. There is no distension. Palpations: Abdomen is soft. There is no mass. Tenderness: There is no abdominal tenderness (mild lower pelvic , no rebound/guarding). Musculoskeletal: General: Normal range of motion. Cervical back: Normal range of motion and neck supple. Right lower leg: No edema. Left lower leg: No edema. Lymphadenopathy: Cervical: No cervical adenopathy. Skin: General: Skin is warm and dry. Capillary Refill: Capillary refill takes 2 to 3 seconds. Findings: No rash. Neurological: General: No focal deficit present. Mental Status: She is alert and oriented to person, place, and time. Psychiatric: Mood and Affect: Mood normal. Thought Content: Thought content normal. Judgment: Judgment normal. Comments: anxious ASSESSMENT AND PLAN: No follow-ups on file. Problem List Items Addressed This Visit Asthma-COPD overlap syndrome (CMS/HCC) - Primary Current meds: trelegy, Benign essential hypertension (CMS/HCC) Please check blood pressure daily and record DASH diet Limit caffeine Take medication as directed Contact office if chest pain, pressure, dizziness, shortness of breath, swelling legs Recommend slow position changes Current meds: diltiazem, arb/hydrochlorothiazide, LAUREL (generalized anxiety disorder) (CMS/HCC) Fluoxetine and xanax prn Hypokalemia Is currently taking potassium supplement Check labs yearly and prn Overweight Major depressive disorder, recurrent, moderate (CMS/HCC) Current meds: fluoxetine and prn xanax Cystocele with rectocele Meningioma (CMS/HCC) Noted on CT head at [facility] , 07/02/24, will speak with Radiologist to see if been present or not Other Visit Diagnoses Chronic obstructive pulmonary disease, unspecified (CMS/HCC) Associated Problem(s): LAUREL (generalized anxiety disorder) (CMS/HCC) Fluoxetine and xanax prn Associated Problem(s): Major depressive disorder, recurrent, moderate (CMS/HCC) Current meds: fluoxetine and prn xanax Associated Problem(s): Hypokalemia Is currently taking potassium supplement Check labs yearly and prn Associated Problem(s): Benign essential hypertension (CMS/HCC) Please check blood pressure daily and record DASH diet Limit caffeine Take medication as directed Contact office if chest pain, pressure, dizziness, shortness of breath, swelling legs Recommend slow position changes Current meds: diltiazem, arb/hydrochlorothiazide, Associated Problem(s): Asthma-COPD overlap syndrome (CMS/HCC) Current meds: trelegy, documented in this encounter [facility] 06-26-2024 Note [facility] Cardiology Clinic Note Chief Complaint: Patient [...] medical therapy which includes a calcium channel marisa, and angiotensin receptor marisa/hydrochlorothiazide and Crestor She will need serial monitoring for her aortic valve stenosis; will repeat an echo in March of this year She is to let us know of any new or worsening symptomatology Return to clinic following her echocardiogram Eve Adams MD, MPH, FACC, [facility] (more content not included)... [facility] 06-26-2024 Note [facility] Cardiology Clinic Note Chief Complaint: Patient [...] of COPD (chronic obstructive pulmonary disease) ([facility]), Heart murmur, Heart valve disease, Hypertension, Palpitations, [...] COPD, inhalers hel (more content not included)... [facility] 04-03-2024 History of Presen t illness Narrative Associated Problem(s): Leg pain, right [...] PRN. Start PT. documented in this encounter [facility] 03-09-2024 History of Presen t illness Narrative Associated Problem(s): Pneumonia of both [...] 78 y.o. female who presents for Follow-up ([facility] f/up). Hospital follow up from 02/27-03/01 for [...] with treatment. Monitor. documented in this encounter [facility] 08-23-2023 Note [facility] Cardiology Clinic Note Chief Complaint: Patient [...] medical therapy which includes a calcium channel marisa, and angiotensin receptor marisa/hydrochlorothiazide and Crestor She will need serial monitoring for her aortic valve stenosis; will repeat an echo in March of this year She is to let us know of any new or worsening symptomatology Return to clinic following her echocardiogram Eve Adams MD, MPH, FACC, [facility], [facility] Interventional Cardiology Pager Email: [email or web address] 08-19-2023 History of Presen t illness Narrative [...] mild (HCC) (CMS/HCC) documented in this encounter [facility] HealthcareEvaluation note* Diagnosis MDD (major depressive [...] mild (HCC) (CMS/HCC) LAUREL (generalized anxiety disorder) ([facility]/HCC) Generalized anxiety disorder Lumbosacral spinal stenosis [...] of limb documented in this encounter [facility]* [...] right Pain in soft tissues of limb Cystocele with rectocele- Primary Major depressive disorder, recurrent, moderate (CMS/HCC) Major depressive disorder, recurrent episode, moderate Chronic obstructive pulmonary disease, unspecified (CMS/HCC) Asthma-COPD overlap syndrome (CMS/HCC) Benign essential hypertension (CMS/HCC) Essential hypertension, benign Overweight Hypokalemia Hypopotassemia LAUREL (generalized anxiety disorder) (CMS/HCC) Generalized anxiety disorder Meningioma (CMS/HCC) Benign neoplasm of cerebral meninges documented in [facility]* [...] right Pain in soft tissues of limb Cystocele with rectocele- Primary Major depressive disorder, recurrent, moderate (CMS/HCC) Major depressive disorder, recurrent episode, moderate Chronic obstructive pulmonary disease, unspecified (CMS/HCC) Asthma-COPD overlap syndrome (CMS/HCC) Benign essential hypertension (CMS/HCC) Essential hypertension, benign Overweight Hypokalemia Hypopotassemia LAUREL (generalized anxiety disorder) (CMS/HCC) Generalized anxiety disorder Meningioma (CMS/HCC) Benign neoplasm of cerebral meninges Chronic idiopathic constipation Unspecified constipation Memory impairment Memory loss LAUREL (generalized anxiety disorder) (CMS/HCC) Generalized anxiety disorder documented in [facility]* Diagnosis Lower abdominal pain- Primary Abdominal pain, other specified site Rectocele Unintentional weight loss Loss of weight [facility] Diagnosis MDD (major depressive disorder), recurrent [...] right Pain in soft tissues of limb Cystocele with rectocele- Primary Major depressive disorder, recurrent, moderate (CMS/HCC) Major depressive disorder, recurrent episode, moderate Chronic obstructive pulmonary disease, unspecified (CMS/HCC) Asthma-COPD overlap syndrome (CMS/HCC) Benign essential hypertension (CMS/HCC) Essential hypertension, benign Overweight Hypokalemia Hypopotassemia LAUREL (generalized anxiety disorder) (CMS/HCC) Generalized anxiety disorder Meningioma (CMS/HCC) Benign neoplasm of cerebral meninges Chronic idiopathic constipation Unspecified constipation Memory impairment Memory loss Moderate late onset Alzheimer's dementia, unspecified whether behavioral, psychotic, or mood disturbance or anxiety (CMS/HCC)- Primary Meningioma (CMS/HCC) Benign neoplasm of cerebral meninges Family history of intracranial aneurysms documented in this encounter [facility] HealthcareEvaluation noteNo assessment information availableCincinnati [facility] Work Phone: Evaluation note* Diagnosis MDD (major depressive disorder), recurrent [...] right Pain in soft tissues of limb Cystocele with rectocele- Primary Major depressive disorder, recurrent, moderate (CMS/HCC) Major depressive disorder, recurrent episode, moderate Chronic obstructive pulmonary disease, unspecified (CMS/HCC) Asthma-COPD overlap syndrome (CMS/HCC) Benign essential hypertension (CMS/HCC) Essential hypertension, benign Overweight Hypokalemia Hypopotassemia LAUREL (generalized anxiety disorder) ([facility]/HCC) Generalized anxiety disorder Meningioma ([facility]/HCC) Benign neoplasm of cerebral meninges Chronic idiopathic constipation Unspecified constipation Memory impairment Memory loss Benign essential hypertension ([facility]/HCC)- Primary Essential hypertension, benign Major depressive disorder, recurrent, moderate ([facility]/HCC) Major depressive disorder, recurrent episode, moderate LAUREL (generalized anxiety disorder) ([facility]/HCC) Generalized anxiety disorder Lumbosacral spinal stenosis Senile dementia of Alzheimer type ([facility]) GERD without esophagitis Esophageal reflux documented in this encounter [facility]* Diagnosis MDD (major depressive disorder), recurrent episode, moderate (CMS/HCC)- Primary Anxiety Anxiety state, unspecified LAUREL (generalized anxiety disorder) ([facility]/HCC) Generalized anxiety disorder Benign essential hypertension ([facility]/HCC)- Primary Essential hypertension, benign LAUREL (generalized anxiety disorder) ([facility]/HCC) Generalized anxiety disorder Lumbosacral spinal stenosis Seasonal allergic rhinitis due to pollen GERD without esophagitis Esophageal reflux Dyslipidemia ([facility]/HCC) Other and unspecified hyperlipidemia Encounter for long-term (current) use of medications Encounter for long-term (current) use of other medications MDD (major depressive disorder), recurrent episode, mild (HCC) (CMS/HCC) Chronic idiopathic constipation- Primary Unspecified constipation Benign essential hypertension (CMS/HCC) Essential hypertension, benign Benign essential hypertension ([facility]/HCC)- Primary Essential hypertension, benign MDD (major depressive disorder), recurrent episode, mild (HCC) (CMS/HCC) LAUREL (generalized anxiety disorder) ([facility]/HCC) Generalized anxiety disorder Lumbosacral spinal stenosis [...] right Pain in soft tissues of limb Cystocele with rectocele- Primary Major depressive disorder, recurrent, moderate (CMS/HCC) Major depressive disorder, recurrent episode, moderate Chronic obstructive pulmonary disease, unspecified (CMS/HCC) Asthma-COPD overlap syndrome (CMS/HCC) Benign essential hypertension (CMS/HCC) Essential hypertension, benign Overweight Hypokalemia Hypopotassemia LAUREL (generalized anxiety disorder) (CMS/HCC) Generalized anxiety disorder Meningioma (CMS/HCC) Benign neoplasm of cerebral meninges Chronic idiopathic constipation Unspecified constipation Memory impairment Memory loss Benign essential hypertension (CMS/HCC)- Primary Essential hypertension, benign Major depressive disorder, recurrent, moderate (CMS/HCC) Major depressive disorder, recurrent episode, moderate LAUREL (generalized anxiety disorder) (CMS/HCC) Generalized anxiety disorder Lumbosacral spinal stenosis Senile dementia of Alzheimer type (CMS/HCC) GERD without esophagitis Esophageal reflux Thyroid nodule (CMS/HCC)- Primary Nontoxic uninodular goiter documented in this encounter [facility] HealthcareInstructionsNot on filedocumented in this encounterBrown [facility] Narrative* Consultation (Routine) - Closed Specialty Diagnoses / Procedures Referred By Mario t Referred To Contact Neurology Diagnoses Meningioma (CMS/HCC) Memory impairment Procedures [place] OFFICE/OUTPATIENT NEW HIGH MDM 60 MINUTES Janeth Grady NP [address] [place] [address] Phone: tel: fax: Karl Duong MD [address] [place] [address] Phone: tel: fax: Referral ID Status Reason Start Date Expiration Date V isits Requested Visits Authorized [id number] Closed Specialty Services Required 07/07/2024 01/03/2025 1 1 [facility] Summary Purpose Family History No Family History Records FoundNo Family History Records FoundNo Family History Records FoundNo Family History Records FoundNo Family History Records FoundNo Family History Records FoundNo Family History Records FoundNo Family History Records Found Advance Directives No Advanced Directives Records FoundDocuments on File Type Date Recorded 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 Advance Directives and Living Will 07/03/2024 2:28 PM living will and POA Date Activated Date Inactivated Comments 03/14/2018 11:36 PM 03/17/2018 3:53 PM Documents on File Type Date Recorded 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 Advance Directives and Living Will 07/03/2024 2:28 PM living will and POA Advance Directive Response Recorded Date/ Time Advance Directives No June 11:21am Additional Source Comments INFORMATION SOURCE (unrecogn ized section and content) DATE CREATED AUTHOR 05/20/2019 [facility] DATE CREATED AUTHOR AUTHOR'S ORGANIZ ATION 09/27/2022 [facility] DATE CREATED AUTHOR AUTHOR'S ORGANIZ ATION 06/28/2024 [facility] DATE CREATED AUTHOR AUTHOR'S ORGANIZ ATION 06/30/2024 [facility] DATE CREATED AUTHOR AUTHOR'S ORGANIZ ATION 07/28/2024 [facility] DATE CREATED AUTHOR AUTHOR'S ORGANIZ ATION 07/28/2024 [facility] DATE CREATED AUTHOR AUTHOR'S ORGANIZ ATION 2024 [facility] DATE CREATED AUTHOR AUTHOR'S ORGANIZ ATION 08/26/2024 [facility] y[facility] Care Teams (unrecognized sec tion and content) Nursing Home Admissions Director Relationship Specialty Start Date End Date Shaheed De La Torre MD [address] [place] [address] PCP - General Family Medicine 08/19/23 Nursing Home Admissions Director Relationship Specialty Start Date End Date Shaheed De La Torre MD [address] [place] [address] PCP - General Family Medicine 08/19/23 Nursing Home Admissions Director Relationship Specialty Start Date End Date Shaheed De La Torre MD [address] [place] [address] PCP - General Family Medicine 08/19/23 Nursing Home Admissions Director Relationship Specialty Start Date End Date Shaheed De La Torre MD [address] [place] [address] PCP - General Family Medicine 08/19/23 Nursing Home Admissions Director Relationship Specialty Start Date End Date Shaheed De La Torre MD [address] [place] [address] PCP - General Family Medicine 08/19/23 Nursing Home Admissions Director Relationship Specialty Start Date End Date Shaheed De La Torre MD [address] [place] [address] PCP - General Family Medicine 08/19/23 Nursing Home Admissions Director Relationship Specialty Start Date End Date Shaheed De La Torre MD [address] [place] [address] PCP - General Family Medicine 08/19/23 Nursing Home Admissions Director Relationship Specialty Start Date End Date Shaheed De La Torre MD [address] [place] [address] PCP - General Family Medicine 08/19/23 Nursing Home Admissions Director Relationship Specialty Start Date End Date Shaheed De La Torre MD [address] [place] [address] PCP - General Family Medicine 08/19/23 Nursing Home Admissions Director Relationship Specialty Start Date End Date Shaheed De La Torre MD [address] [place] [address] PCP - General Family Medicine 08/19/23 Nursing Home Admissions Director Relationship Specialty Start Date End Date Shaheed De La Torre MD PCP - General 07/28/17 Nursing Home Admissions Director Relationship Specialty Start Date End Date Shaheed De La Torre MD [address] [place] [address] PCP - General Family Medicine 08/19/23 Nursing Home Admissions Director Relationship Specialty Start Date End Date Shaheed De La Torre MD [address] [place] [address] PCP - [facility] Family Medicine 08/19/23 Team Status: Active Member Role Status Dates Shaheed De La Torre MD Primary Care Provider Active Team Status: Inactive Member Role Status Dates Michael Rodriguez Attending Provider Active Start: July 02, 2024 End: July 02, 2024 Team Status: Inactive Member Role Status Dates Romel Baptiste DO Attending Provider Active Start: August 21, 2024 End: August 21, 2024 Shaheed De La Torre MD Primary Care Provider Active S tart: August 21, 2024 End: August 21, 2024 Nursing Home Admissions Director Relationship Specialty Start Date End Date Shaheed De La Torre MD [address] [place] [address] PCP - General Family Medicine 08/19/23 Reason for Visit (unrecogniz ed section and content) Reason Comments Follow-up Reason Onset Date Comments Med Refill 04/19/2024 Reason Onset Date Comments Med Refill 06/12/2024 Reason Comments Follow-up Tbh f/up Reason Comments Follow-up Spot on breast Reason Comments Altered Mental Status hospital visit Reason Onset Date Comments Med Refill 07/12/2024 Reason Comments Bladder Prolapse New Patient Specialty Diagnoses / Procedures Referred By Mario t Referred To Contact Urogynecology Diagnoses Cystocele with rectocele Janeth Grady, MANAGER OF ADMINISTRATION-EXTENSION SPECIALIST [address] [place] [address] Phone: tel: fax: Eliu Galindo MD [address] [facility] , [address] [place] [address] Phone: tel: fax: Referral ID Status Reason Start Date Expiration Date Visits Re quested Visits Authorized [id number] Closed 07/07/2024 07/07/2025 1 1 Reason Comments Follow-up 6 m Goals (unrecognized section and content) Goals may be documented in a n alternate section FOR RECORDS PERTAINING TO PATIENTS WHO ARE [...] BE BASED ON THE PRIMARY CLINICAL RECORDS. [email or web address] provides no warranty or guarantee of the accuracy or completeness of information in this document.
== END 2024-08-29 09:44 | disposition home or self-care (01) ==
LOC: US 09:44
PROVIDERS: PCP Family Medicine; Visit Provider Family Medicine
DX: E04.1 Nontoxic single thyroid nodule (principal)
CPT/HCPCS: 76536

== ENCOUNTER 2024-09-29 10:26 | Outpatient (OUT) | payer MEDICARE, SELFPAY ==
--- NOTE | 2024-09-29 10:34 | MM_ITS ---
Patient Name: KOLTON NAPIER MR#: [id number] : 1945 Exam Date: 09/29/2024 Ordering Doctor: DR Shaheed Crow . RADIOLOGY REPORT PROCEDURE: MM TOMOSYNTHESIS SCREENING BI COMPARISON: MM TOMOSYNTHESIS SCREENING BI, 09/27/2023. MG MAMM SCREEN 3D SHARLENE CAD, 09/24/2022. MG MAMM SCREEN 3D SHARLENE CAD, 09/23/2021. MG MAMM SCREEN SHARLENE W CAD, 09/19/2014. INDICATIONS: Screening Calculator Name NCI Breast Cancer Risk Assessment Tool 5 Year Breast Cancer Risk 8.00% Lifetime Breast Cancer Risk 12.90% Personal Breast Cancer No Personal Ovarian Cancer No Treatments None Family Cancers Mother with breast cancer at age 80; Aunt-maternal with breast cancer at age 80; Sister with breast cancer at age 65; Mother with stomach cancer at age 80. LOCATION: [facility] BREAST COMPOSITION: There are scattered areas of fibroglandular density. FINDINGS: RIGHT BREAST: No significant suspicious finding. LEFT BREAST: No significant suspicious finding. DIAGNOSTIC CATEGORY 1--NEGATIVE. RECOMMENDATIONS: ROUTINE MAMMOGRAM AND CLINICAL EVALUATION IN 12 MONTHS. PLEASE NOTE: A NORMAL MAMMOGRAM DOES NOT EXCLUDE THE POSSIBILITY OF BREAST CANCER. A CLINICALLY SUSPICIOUS PALPABLE LUMP SHOULD BE BIOPSIED. Dictated by: Ishaan Davidson DO on 09/29/2024 at 16:29 Approved by: Ishaan Davidson DO on 09/29/2024 at 16:32
== END 2024-09-29 10:27 | disposition home or self-care (01) ==
LOC: MAMMO 10:26
PROVIDERS: PCP Family Medicine; Visit Provider Family Medicine
DX: Z12.31 Encounter for screening mammogram for malignant neoplasm of breast (principal); Z80.3 Family history of malignant neoplasm of breast; Z80.0 Family history of malignant neoplasm of digestive organs; G30.1 Alzheimer's disease with late onset; F02.80 Dementia in other diseases classified elsewhere, unspecified severity, without behavioral disturbance, psychotic disturbance, mood disturbance, and anxiety
CPT/HCPCS: 36415; 77063; 77067; 82607

== ENCOUNTER 2024-09-29 10:59 | Outpatient (OUT) | payer MEDICARE, SELFPAY ==
[2024-09-30 04:11] LABS: Vitamin B12 574 pg/mL (232-1245)
== END 2024-09-29 11:00 | disposition home or self-care (01) ==
LOC: LAB 10:59
PROVIDERS: PCP Family Medicine; Visit Provider Psychiatry & Neurology Neurology
DX: G30.1 Alzheimer's disease with late onset (principal); F02.80 Dementia in other diseases classified elsewhere, unspecified severity, without behavioral disturbance, psychotic disturbance, mood disturbance, and anxiety
CPT/HCPCS: 36415; 82607

== ENCOUNTER 2025-06-18 12:48 | Outpatient (OUT) | payer MEDICARE, SELFPAY ==
--- NOTE | 2025-06-18 14:00 | CA_ITS ---
Patient Name: KOLTON NAPIER MR#: [id number] : 1945 Exam Date: 06/18/2025 Ordering Doctor: DR DANI DOMINGUEZ M.D. ECHOCARDIOGRAM REPORT PROCEDURE: CA ECHO DOPPLER COMPLETE INDICATIONS: Mitral valve and aortic valve insufficiency COMPARISON: None. DESCRIPTION: COMPLETE ECHOCARDIOGRAM Real-time transthoracic echocardiography with 2D, M-mode, spectral and color flow Doppler performed. QUALITY: Technical quality was good. LEFT VENTRICLE: Normal chamber size. Proximal septal moderate hypertrophy (sigmoid septum). Left ventricle systolic function at the lower limit of normal without wall motion abnormalities, EF 50% LV EF: 50% DIASTOLIC: Unable to evaluate left ventricle diastolic function ATRIAL SEPTUM: Visually appears intact. LEFT ATRIUM: Mild dilatation. RIGHT ATRIUM: Moderate dilatation. RIGHT VENTRICLE: Normal chamber size. Normal right ventricular systolic function. TRICUSPID VALVE: Normal mobility and thickness. No stenosis with trivial regurgitation. Unable to assess right-sided pressure due to the lack of measurable tricuspid regurgitation. MITRAL VALVE: Thickened anterior mitral valve leaflet with normal mobility. No evidence of mitral valve stenosis. There is no mitral annular calcification. Trivial mitral regurgitation.Anterior leaflet is calcified at the tip. AORTIC VALVE: Normal trileaflet appearance. Mildly calcified aortic valve. Mildly diminished mobility. No evidence of aortic valve stenosis. DVI 0.5, Vmax 1.59 m/s. No aortic regurgitation. AORTIC ROOT: Normal diameter and appearance. Ascending aorta is normal in size. PULMONIC VALVE: Normal thickness and mobility. No stenosis. No regurgitation. PERICARDIUM: No evidence of pericardial effusion. IVC: Collapes with inspirations. PLEURA: CONCLUSION: Moderate increased thickness at the base of the septum-sigmoidal septum Low normal left ventricle systolic function without wall motion abnormalities, EF 50% Normal right ventricle size and systolic function Mildly dilated left atrium Moderately dilated right atrium Aortic valve sclerosis without stenosis No significant valvular abnormalities Adult Echocardiography Procedure Report Left Ventricle LVEDD (3.7 - 5.6 cm): 3.71 cm LVESD (2.2 - 4.0 cm): 2.36 cm LVIVS thickness (0.6 - 1.2 cm): 1.62 cm LVPW thickness (0.5 - 1.0 cm): 0.77 cm e': 0.08 m/s E - e': 6.36 LVOT Max Gradient: 2.63 mm[Hg] LVOT Area (cm2): 0.81 m/s Peak Velocity (LVOT): 0.81 m/s Mean Velocity (LVOT): 0.52 m/s LVOT Diameter 2.16 cm Left Ventricular Ejection Fraction: 53.48 % Left Atrium LA Volume Index (2D A2C): 36.81 ml/m2 Left Atrium Systolic Dimension: 2.71 cm Mitral Valve MV E to A Ratio: 0.66 MV Max Gradient: MV Mean Gradient: Mitral Valve A-Wave Peak Velocity: 0.74 m/s Mitral Valve E-Wave Peak Velocity: 0.49 m/s Cardiovascular Orifice Area: Right Ventricle RV Internal Diastolic Dimension: Aorta AO Root Diam: 3.29 cm Ascending Ao Diam: 3.13 cm Aortic Valve AoV Area (Peak Haile): 1.87 cm2, 1.87 cm2 AoV Area (VTI): 1.84 cm2, 1.90 cm2 Deceleration Spencer: Pressure Half-Time: Peak Velocity(Antegrade Flow): 1.59 m/s, 1.59 m/s Peak Gradient(Antegrade Flow): 10.16 mm[Hg], 10.17 mm[Hg] Mean Velocity(Antegrade Flow): 1.13 m/s, 1.16 m/s Mean Gradient(Antegrade Flow): 5.78 mm[Hg], 5.90 mm[Hg] Velocity Time Integral: 30.35 cm, 31.45 cm Tricuspid Valve Peak Velocity (Regurgitant Flow): Peak Velocity: Pulmonic Valve Mean Gradient: 2.40 mm[Hg] Mean Velocity: 0.72 m/s Peak Velocity: 1.13 m/s Peak Gradient: 5.07 mm[Hg] Right Atrium Right Atrium Systolic Pressure: 98.79 ml, 98.79 ml Dictated by: Carlo Aleman MD on 06/18/2025 at 18:43 Approved by: Carlo Aleman MD on 06/18/2025 at 18:55
== END 2025-06-18 12:49 | disposition home or self-care (01) ==
LOC: CARD 12:49
PROVIDERS: PCP Family Medicine; Visit Provider Internal Medicine Interventional Cardiology
DX: I08.0 Rheumatic disorders of both mitral and aortic valves (principal); I10 Essential (primary) hypertension
CPT/HCPCS: 93306